=== PATIENT | male | born 1955 | race Caucasian/White ===

== ENCOUNTER 2016-10-15 13:10 | Inpatient (IN) | payer BC, OTHER ==
[2016-10-15] MEDS ORDERED: Furosemide IV* 10 MG/ML VIAL (40 MG) IV SLOW PU ONE (13:42)
[2016-10-15] MEDS ORDERED: Albuterol/Ipratropium NEB.SOL* Albuterol 2.5 MG/Ipratropium 0.5 MG 3 ML INH ONE (13:42)
[2016-10-15 13:45] LABS: Hematocrit 29 % (42-52); Hemoglobin 9.5 g/dl (14.0-18.0); Mean Corpuscular HGB Conc 33 g/dl (31-36); Mean Corpuscular Hemoglobin 34 pg (27-31); Mean Corpuscular Volume 103 fL (80-94); Mean Platelet Volume 8 um3 (7.4-10.4); Red Blood Count 2.85 10^6/ul (4.0-5.4); Red Cell Distribution Width 19 % (10.5-15); White Blood Count 10.9 10^3/ul (3.5-10.8)
[2016-10-15 13:51] LABS: Add Diff/Slide Review? Slide Review Added; Comments Flag Yes
[2016-10-15 13:59] LABS: Albumin 2.9 g/dL (3.2-5.2); Ammonia 134 mol/L (16-53); BUN/Creatinine Ratio 14.4 (8-20); Calcium 8.7 mg/dL (8.6-10.3); EGFR African American 81.3 (>60); EGFR Non-African American 63.2 (>60); Globulin 4.2 g/dL (2-4); Total Bilirubin 2.2 mg/dL (0.2-1.0); Total Protein 7.1 g/dL (6.4-8.9)
[2016-10-15 13:59] LABS: Urine Bilirubin Negative (Negative); Urine Glucose Negative (Negative); Urine Nitrite Negative (Negative)
[2016-10-15 14:01] LABS: Troponin I 0.01 ng/mL (<0.04)
[2016-10-15 14:12] LABS: B Type Natriuretic Peptide 345 pg/mL
[2016-10-15] MEDS ORDERED: Morphine INJ* 4 MG/ML 1 ML CARPUJECT IV ONE (14:14)
[2016-10-15 14:18] LABS: C Reactive Protein 41.9 mg/L (< 5.00); Potassium 5.6 mmol/L (3.5-5.0)
[2016-10-15 14:19] LABS: Macrocytosis 2+
[2016-10-15 14:20] LABS: Basophilic Stippling 1+
--- NOTE | 2016-10-15 14:40 | RAD ---
HISTORY: Shortness of breath COMPARISONS: April 24, 2016 VIEWS: 2: Frontal and lateral views of the chest. FINDINGS: CARDIOMEDIASTINAL SILHOUETTE: The cardiomediastinal silhouette is normal. EDWARD: The edward are normal. PLEURA: The costophrenic angles are sharp. No pleural abnormalities are noted. LUNG PARENCHYMA: The lungs are clear. ABDOMEN: The upper abdomen is clear. There is no subphrenic gas. BONES AND SOFT TISSUES: No bone or soft tissue abnormalities are noted. OTHER: None. IMPRESSION: NO ACTIVE CARDIOPULMONARY DISEASE.
[2016-10-15] MEDS ORDERED: Sodium Polystyrene ORAL.SOL* 15 GM/60 ML BTL PO ONE (15:15)
--- NOTE | 2016-10-15 15:48 | ED ---
I, Clemnet,Rex, scribed for Carlos Wilson MD on 10/15/16 at 1445 . Shortness of Breath - HPI Summary HPI Summary: This 61 y/o male presents to ED for acute on chronic SOB, increased cough, and wheezing since today AM. Pt denies any PMHx of COPD, but reports liver failure s /p partial liver removal, asthma as a kid, and recent fluid overload s/p 8 L fluid drainage on 10/03/2016. Pt is currently on lasix and spironolactone with recent increase of dose of lasix by his PCP, Dr. Noriega. Pt is noted with significant abd swelling and wheezing at the time of initial evaluation. He is SOB at rest. He is former smoker and nondrinker. - History of Current Complaint Chief Complaint: EDShortnessOfBreath Time Seen by Provider: 10/15/16 13:41 Hx Obtained From: Patient, Medical Records Onset/Duration: Gradual Onset Timing: Constant Current Severity: Moderate Dyspnea At: Rest Aggrevating Factors: Nothing Alleviating Factors: Nothing Associated Signs & Symptoms: Wheezing - Allergy/Home Medications Allergies/Adverse Reactions: Allergies Allergy/AdvReac Type Severity Reaction Status Date / Time Sertraline [From Zoloft] Allergy Intermediate Rash And Verified 10/15/16 13:17 Itching Lorazepam [From Ativan] Allergy Hallucinati Verified 10/15/16 13:17 ons BEES Allergy Unknown Uncoded 10/15/16 13:17 Reaction Details Home Medications: Home Medications Ibuprofen TAB* [Motrin TAB* 800 MG] 1 tab PO Q6HR PRN 10/15/16 [History Confirmed 10/15/16] PMH/Surg Hx/FS Hx/Imm Hx Endocrine/Hematology History: Denies: Hx Diabetes - elevated glucose after acute liver failure - diet controlled, Hx Anemia, Hx Unexplained Bleeding Cardiovascular History: Reports: Hx Hypercholesterolemia, Hx Hypertension Denies: Hx Aneurysm, Hx Angina, Hx Angioplasty, Hx Auto Implanted Cardiovert Defib, Hx Cardiac Arrest, Hx Cardiomegaly, Hx Congenital Heart Disease, Hx Congestive Heart Failure, Hx Coronary Artery Disease, Hx Deep Vein Thrombosis, Hx Embolism, Hx Hypotension, Hx Pacemaker/ICD, Hx Peripheral Vascular Disease, Hx Rheumatic Fever, Hx Syncope, Hx Valvular Heart Disease, Other Cardiovascular Problems/Disorders Respiratory History: Reports: Hx Asthma, Hx Seasonal Allergies - hay fever Denies: Hx Chronic Bronchitis, Hx Chronic Obstructive Pulmonary Disease (COPD ), Hx Cystic Fibrosis, Hx Lung Cancer, Hx Pleural Effusion, Hx Pneumonia, Hx Pulmonary Edema, Hx Pulmonary Embolism, Hx Sleep Apnea, Other Respiratory Problems/Disorders GI History: Reports: Hx Cirrhosis, Hx Gall Bladder Disease, Hx Ulcer Denies: Hx Crohn's Disease, Hx Diverticulosis, Hx Gastroesophageal Reflux Disease, Hx Gastrointestinal Bleed, Hx Hiatal Hernia, Hx Irritable Bowel, Hx Jaundice, Hx Obstructive Bowel, Hx Ileostomy, Hx Pyloric Stenosis, Other GI Disorders History: Denies: Hx Renal Disease Musculoskeletal History: Reports: Hx Arthritis - both knees, Hx Orthopedic Injury Denies: Hx Back Problems, Hx Bursitis, Hx Congenital Bone Abnormalities, Hx Fibromyalgia, Hx Gout, Hx Osteoporosis, Hx Scoliosis, Hx Tendonitis, Other Musculoskeletal History Sensory History: Reports: Hx Contacts or Glasses Denies: Hx Cataracts, Hx Eye Injury, Hx Eye Prosthesis, Hx Glaucoma, Hx Legally Blind, Hx Macular Degeneration, Hx Vision Problem, Hx Deafness, Hx Hearing Aid, Hx Hearing Problem, Other Sensory Impairments Opthamlomology History: Reports: Hx Contacts or Glasses Denies: Hx Cataracts, Hx Eye Injury, Hx Eye Prosthesis, Hx Glaucoma, Hx Legally Blind, Hx Macular Degeneration, Hx Vision Problem, Other Sensory Impairments Neurological History: Reports: Hx Seizures Psychiatric History: Reports: Hx Depression, Hx Substance Abuse Denies: Hx Anxiety, Hx Attention Deficit Hyperactivity Disorder, Hx Eating Disorder, Hx Panic Disorder, Hx Post Traumatic Stress Disorder, Hx Inpatient Treatment, Hx Community Mental Health Tx, Hx Schizophrenia, Hx Bipolar Disorder , Hx Suicide Attempt, Hx of Violent Episodes Against Others, Other Psychiatric Issues/Disorders - Surgical History Surgery Procedure, Year, and Place: RIGHT ANKLE ORIF. LEFT KNEE TENDON REPAIR. CHOLECYSECTOMY. APPENDECTOMY. TONSILECTOMY Hx Anesthesia Reactions: No Infectious Disease History: No Infectious Disease History: Denies: Hx Clostridium Difficile, Hx Hepatitis, Hx Human Immunodeficiency Virus (HIV), Hx of Known/Suspected MRSA, Hx Shingles, Hx Tuberculosis, History Other Infectious Disease, Traveled Outside the [place] in Last 30 Days - Family History Known Family History: Negative: Cardiac Disease, Diabetes - Social History Alcohol Use: Rare Alcohol Amount: "next to nothing" Hx Substance Use: No Substance Use Type: Reports: None Hx Tobacco Use: Yes Smoking Status (MU): Former Smoker Type: Cigarettes Have You Smoked in the Last Year: No Review of Systems Positive: Other - "tightness all over". Negative: Fever Positive: Shortness Of Breath, Cough, Other - positive wheezing Positive: Other - abd swelling Positive: other - decreased urinary output Negative: Anxious, Depressed All Other Systems Reviewed And Are Negative: Yes Physical Exam - Summary Physical Exam Summary: VITAL SIGNS: Reviewed. GENERAL: Patient is a obese male with some distress secondary to the shortness of breath. However, he is able to speak in full sentences. HEAD AND FACE: Normocephalic and atraumatic. EYES: PERRLA, EOMI x 2, No injected conjunctiva. EARS: Hearing grossly intact. Ear canals and tympanic membranes WNL MOUTH: Dry oral mucosa. NECK: Supple, trachea is midline, no adenopathy, no JVD, no carotid bruit. CHEST: Symmetric, No intercostal or abdominal retraction, LUNGS: Diffuse bilateral wheezing and decreased breath sounds.No crackles. CVS: RRR,, S1 and S2 present, no murmurs or gallops appreciated. ABDOMEN: Soft, Positive distension secondary to severe ascitis. Positive BS. EXTREMITIES: FROM in all major joints, positive b/l LE edema. NEURO: Alert and oriented x 3. No acute neurological deficits. Speech is normal and follows commands. SKIN: Dry and warm Vital Signs On Initial Exam: Initial Vitals Temp Pulse Resp BP Pulse Ox 99.1 F 82 20 149/93 100 10/15/16 13:10 10/15/16 13:10 10/15/16 13:10 10/15/16 13:10 10/15/16 13:10 Vital Signs Reviewed: Yes Diagnostics - Vital Signs Vital Signs Temp Pulse Resp BP Pulse Ox 10/15/16 13:10 99.1 F 82 20 149/93 100 - Laboratory Lab Results: Lab Results 10/15/16 10/15/16 10/15/16 Range/Units 13:30 13:30 13:30 WBC 10.9 H (3.5-10.8) 10^3/ul RBC 2.85 L (4.0-5.4) 10^6/ul Hgb 9.5 L (14.0-18.0) g/dl Hct 29 L (42-52) % MCV 103 H (80-94) fL MCH 34 H (27-31) pg MCHC 33 (31-36) g/dl RDW 19 H (10.5-15) % Plt Count 176 (150-450) 10^3/ul MPV 8 (7.4-10.4) um3 Neut % (Auto) 55.0 (38-83) % Lymph % (Auto) 14.9 L (25-47) % Crisp % (Auto) 16.1 H (1-9) % Eos % (Auto) 12.8 H (0-6) % Baso % (Auto) 1.2 (0-2) % Absolute Neuts (auto) 6.0 (1.5-7.7) 10^3/ul Absolute Lymphs (auto) 1.6 (1.0-4.8) 10^3/ul Absolute Monos (auto) 1.8 H (0-0.8) 10^3/ul Absolute Eos (auto) 1.4 H (0-0.6) 10^3/ul Absolute Basos (auto) 0.1 (0-0.2) 10^3/ul Absolute Nucleated RBC 0.01 10^3/ul Nucleated RBC % 0.1 Normal RBC Morphology Not Reportable Basophilic Stippling 1+ Macrocytosis 2+ INR (Anticoag Therapy) 1.13 H (0.89-1.11) APTT 28.9 (26.0-36.3) seconds Sodium (133-145) mmol/L Potassium (3.5-5.0) mmol/L Chloride (101-111) mmol/L Carbon Dioxide (22-32) mmol/L Anion Gap (2-11) mmol/L BUN (6-24) mg/dL Creatinine (0.67-1.17) mg/dL Est GFR ( Amer) (>60) Est GFR (Non-Af Amer) (>60) BUN/Creatinine Ratio (8-20) Glucose (70-100) mg/dL Lactic Acid (0.5-2.0) mmol/L Calcium (8.6-10.3) mg/dL Total Bilirubin (0.2-1.0) mg/dL AST (13-39) U/L ALT (7-52) U/L Alkaline Phosphatase (34-104) U/L Ammonia 134 H (16-53) mol/L Total Creatine Kinase (10-223) U/L CK-MB (CK-2) (0.6-6.3) ng/mL Troponin I (<0.04) ng/mL C-Reactive Protein (< 5.00) mg/L B-Natriuretic Peptide 345 H ( - 100) pg/mL Total Protein (6.4-8.9) g/dL Albumin (3.2-5.2) g/dL Globulin (2-4) g/dL Albumin/Globulin Ratio (1-3) Urine Color Urine Appearance Urine pH (5-9) Ur Specific [place] (1.010-1.030) Urine Protein (Negative) Urine Ketones (Negative) Urine Blood (Negative) Urine Nitrate (Negative) Urine Bilirubin (Negative) Urine Urobilinogen (Negative) Ur Leukocyte Esterase (Negative) Urine Glucose (Negative) 10/15/16 10/15/16 10/15/16 Range/Units 13:30 13:30 13:50 WBC (3.5-10.8) 10^3/ul RBC (4.0-5.4) 10^6/ul Hgb (14.0-18.0) g/dl Hct (42-52) % MCV (80-94) fL MCH (27-31) pg MCHC (31-36) g/dl RDW (10.5-15) % Plt Count (150-450) 10^3/ul MPV (7.4-10.4) um3 Neut % (Auto) (38-83) % Lymph % (Auto) (25-47) % Crisp % (Auto) (1-9) % Eos % (Auto) (0-6) % Baso % (Auto) (0-2) % Absolute Neuts (auto) (1.5-7.7) 10^3/ul Absolute Lymphs (auto) (1.0-4.8) 10^3/ul Absolute Monos (auto) (0-0.8) 10^3/ul Absolute Eos (auto) (0-0.6) 10^3/ul Absolute Basos (auto) (0-0.2) 10^3/ul Absolute Nucleated RBC 10^3/ul Nucleated RBC % Normal RBC Morphology Basophilic Stippling Macrocytosis INR (Anticoag Therapy) (0.89-1.11) APTT (26.0-36.3) seconds Sodium 132 L (133-145) mmol/L Potassium 5.6 H (3.5-5.0) mmol/L Chloride 100 L (101-111) mmol/L Carbon Dioxide 25 (22-32) mmol/L Anion Gap 7 (2-11) mmol/L BUN 17 (6-24) mg/dL Creatinine 1.18 H (0.67-1.17) mg/dL Est GFR ( Amer) 81.3 (>60) Est GFR (Non-Af Amer) 63.2 (>60) BUN/Creatinine Ratio 14.4 (8-20) Glucose 169 H (70-100) mg/dL Lactic Acid 3.1 H* (0.5-2.0) mmol/L Calcium 8.7 (8.6-10.3) mg/dL Total Bilirubin 2.20 H (0.2-1.0) mg/dL AST 60 H (13-39) U/L ALT 28 (7-52) U/L Alkaline Phosphatase 222 H (34-104) U/L Ammonia (16-53) mol/L Total Creatine Kinase 256 H (10-223) U/L CK-MB (CK-2) 11.1 H (0.6-6.3) ng/mL Troponin I 0.01 (<0.04) ng/mL C-Reactive Protein 41.90 H (< 5.00) mg/L B-Natriuretic Peptide ( - 100) pg/mL Total Protein 7.1 (6.4-8.9) g/dL Albumin 2.9 L (3.2-5.2) g/dL Globulin 4.2 H (2-4) g/dL Albumin/Globulin Ratio 0.7 L (1-3) Urine Color Yellow Urine Appearance Clear Urine pH 5.0 (5-9) Ur Specific [place] 1.016 (1.010-1.030) Urine Protein Negative (Negative) Urine Ketones Negative (Negative) Urine Blood Negative (Negative) Urine Nitrate Negative (Negative) Urine Bilirubin Negative (Negative) Urine Urobilinogen Negative (Negative) Ur Leukocyte Esterase Negative (Negative) Urine Glucose Negative (Negative) Result Diagrams: 10/15/16 13:30 10/15/16 13:30 Lab Statement: Any lab studies that have been ordered have been reviewed, and results considered in the medical decision making process. - Radiology CXR Radiology Interpretation Completed By: Radiologist Course/Dx - Course Assessment/Plan: This 61 y/o male presents to ED with CC of SOB, increaesdd abd pain, and BLE edema. Bloodwork indicates WBC of 10.9, Hgb of 9.5, hct of 29, ( anemia of chroninc disease), sodium of 132, potassium of 5.6, for which he was given Kayexalate. No EKG changes. Creatinine of 1.18, and ammoium 1.34. CRP of 41.9. BNP 345, and lactic acid of 3.1. UA is negative. CXR shows no active cardiopulmonary dz. ED course pt was given duoneb for wheezing. Lasix for anasarca. Morphine for back pain. Kayaxolate for hypokalemia. Patient had urinary retention and we placed a galeana catether. At this point physical examination findings are shared with Dr. Liu, who will accept the admission of the pt for further workup and management. - Diagnoses Provider Diagnoses: Anasarca, Ascites, Hyperkalemia, Urinary retention - Physician Notifications Discussed Care of Patient With: Dr. Liu (Hospitalist) at 1506 PM Time Discussed With Above Provider: 15:06 Instructed by Provider To: Admit As Inpatient Discharge - Discharge Plan Condition: Stable Disposition: ADMITTED TO [facility] Referrals: Rosie Noriega MD [Primary Care Provider] - The documentation as recorded by the Clement segundo Soohyun accurately reflects the service I personally performed and the decisions made by , Carlos Wilson MD.
[2016-10-15] MEDS ORDERED: Artificial Tears* 15 ML BTL BOTH EYES PRN (15:58)
[2016-10-15] MEDS ORDERED: Albuterol HFA INHALER* 8 gm MDI INH PRN (15:58)
[2016-10-15 16:22] LABS: Phenytoin 13.7 mcg/mL (10-20)
[2016-10-15] MEDS: oxyCODONE/Acetamin 5/325 MG* TAB PO PRN (19:00)
[2016-10-15] MEDS: Furosemide IV* 10 MG/ML VIAL (40 MG) IV SCH (19:00)
[2016-10-15] MEDS: Gabapentin CAP(*) 300 MG PO SCH (21:34)
[2016-10-15] MEDS: Phenytoin CHEW TAB(*) 50 MG PO SCH (21:36)
[2016-10-15] MEDS: RiFAXimin* 550 MG TAB PO SCH (21:38)
[2016-10-15] MEDS: Ibuprofen TAB* 800 MG PO PRN (21:39)
[2016-10-15] MEDS: Heparin VIAL(*) 5000 UNITS/ML VIAL (FIVE THOUSAND) SUBCUT SCH (21:40)
[2016-10-15] MEDS ORDERED: Albuterol 2.5 MG/3 ML NEB.SOL* (0.083%) INH PRN (22:38)
[2016-10-15] MEDS ORDERED: hydrOXYzine HCL TAB* 25 MG PO PRN (22:38)
--- NOTE | 2016-10-16 03:47 | HP ---
HISTORY AND PHYSICAL: DATE OF ADMISSION: 10/25/16 PRIMARY CARE PHYSICIAN: Dr. Rosie Noriega. CHIEF COMPLAINT: Shortness of breath and leg edema. HISTORY OF PRESENT ILLNESS: Jarad Mata is known to us from prior multiple hospitalizations, male with history of alcoholism, who stated that he stopped drinking in July of 2016. The patient had been battling with consequences of chronic liver failure since then. He had a paracentesis that yielded 8 L of fluid on 09/29/16 as outpatient. The patient stated that his baseline weight used to be 200 pounds, but he is up to [address] Noriega increasing his Lasix dose from 40 mg b.i.d. to 80 mg b.i.d. just 4 days ago, he still continues to gain weight. He became more immobile and for the past couple of days, he has been "stumbling around" and fell in the shower yesterday. He did not lose consciousness or hit his head, though. He presents to the hospital with marked ascites and bilateral lower extremity edema. He is going to be admitted with diagnosis of fluid overload and chronic liver failure. PAST MEDICAL HISTORY: 1. Hypertension. 2. History of hemochromatosis. 3. Dyslipidemia. 4. History of thrombocytopenia in the past due to liver disease. 5. History of seizure disorder. 6. History of chronic liver failure. 7. History of alcoholic hepatitis. 8. Diabetes type 2, currently diet controlled. 9. History of right ankle ORIF. 10. Status post cholecystectomy. 11. Status post appendectomy. 12. History of tonsillectomy remotely. 13. History of prolonged hospital stay in April of 2016, and at that point, he had head trauma with cerebral contusion and small intracranial hemorrhage, subsequent development of status epilepticus and prolonged hospital stay with ventilatory support. He also had subsequent hepatic encephalopathy at that point. MEDICATIONS: Include: 1. Ibuprofen 800 mg every 6 hours p.r.n. 2. Aspirin 81 mg daily. 3. Artificial tears one drop to both eyes every 2 hours p.r.n. 4. Albuterol inhaler 1 puff every 4 hours p.r.n. 5. Furosemide 80 mg twice a day. 6. Folic acid 1 mg daily. 7. Lactulose 30 mL 3 times a day. 8. Gabapentin 300 mg at bedtime. 9. Dilantin 200 mg at bedtime and 100 mg daily. 10. Omeprazole 20 mg daily. 11. Multivitamin one tablet daily. 12. Rifaximin 550 mg b.i.d. 13. Propranolol 10 mg daily. 14. Aldactone 25 mg daily. Please note that the patient had not been taking lactulose as prescribed at 3 times a day and he had been skipping doses. ALLERGIES: He was just recently placed on SERTRALINE approximately 2 weeks ago and developed a rash. He also is allergic to LORAZEPAM. FAMILY HISTORY: Positive for mother who secondary to stroke at the age of 52. SOCIAL HISTORY: The patient has a history of 10-pack year smoking, quit over 30 years ago. He had been an alcoholic up to July of 2016. He had negative drug use. He is currently unemployed and lives with his , who is his healthcare proxy. His 's name is Larisa Lorenz and her phone number is . REVIEW OF SYSTEMS: Please note that the patient stated that in the past several days, he gained approximately 20 pounds. There was a question of urinary retention at presentation to the ED. Initially postvoid residual on the ultrasound was noted to be 900 mL, but after Powers was inserted, only 100 mL were obtained. I believe that the postvoid residual arose due to the patient 's ascites. The patient also had been complaining of leg edema and swelling. Subsequently, he had been very immobile and has had lower back pain. His breathing also had been impaired. His last bowel movement was 2 days ago. All the remaining 14 systems were reviewed with the patient and were otherwise negative. Please also note that the patient has periods of forgetfulness, but otherwise he is oriented x3. He also complains of being "more foggy" in the past 2 days. PHYSICAL EXAMINATION GENERAL: This is a very pleasant 61-year-old male who is in no acute distress. The patient is alert, awake, and oriented x3. Occasionally past problems with short-term memory. VITAL SIGNS: Blood pressure of 143/74, heart rate of 83 and regular, respiratory rate 17, oxygen saturation 98% on 2 L of oxygen nasal cannula, temperature of 99.1. HEENT: Head atraumatic, normocephalic. Eyes: Pupils equal, reactive to light and accommodation. Oropharynx clear. Mucosa moist. NECK: Supple. No JVD. No bruits bilaterally. RESPIRATORY: Bibasilar crackles noted and occasional mid lung wheezes bilaterally. CARDIOVASCULAR: Regular rate and rhythm. No murmur. ABDOMEN: Tense ascites noted, nontender. Bowel sounds present in all 4 quadrants. EXTREMITIES: There is 2+ pitting entire bilateral lower extremities edema all the way to the levels of bilateral groins. There is no clubbing, no cyanosis. Pulses are +2 bilaterally. NEUROLOGIC: On neuro evaluation, speech clear. Cranial nerves II through XII grossly intact. Motor strength is 5/5 bilaterally. SKIN: On evaluation of the skin, the patient's skin is dry. There appears to be resolving, flat erythema noted on bilateral thighs and upper chest, which is after the allergic reaction from SERTRALINE. DIAGNOSTIC STUDIES/LAB DATA: Laboratory data and studies performed during the hospital stay included white blood cell count of 10.9, hemoglobin of 9.5, hematocrit of 29, and platelets of 176. Sodium was 132, potassium 3.6, chloride 100, carbon dioxide 25, BUN 17, creatinine 1.18. Liver function tests showed bilirubin of 2.2, AST of 60, ALT of 28, alkaline phosphatase of 222. The patient's total CPK was 256. Albumin 2.9, globulin 4.2. Brain natriuretic peptide was 335, lactic acid was 3.1. Coagulation studies showed INR of 1.13 and PTT of 28.9. Portable chest x-ray read by the radiologist, impression: "No active cardiopulmonary disease." The patient's EKG showed normal sinus rhythm with heart rate of 86 beats per minute with normal axis and no ST changes. ASSESSMENT AND PLAN: A 61-year-old male with history of chronic liver failure who had paracentesis on 09/29/16 of 8 L. Now presents with worsening dyspnea due to fluid overload and anasarca. He has rather dense ascites and will require paracentesis in the near future. 1. In regards to patient's ascites and fluid overload due to chronic liver failure, the patient is going to be placed on Lasix intravenously twice a day. We will place him on daily weight measurements. Paracentesis is going to be obtained and ordered from Radiology in the morning. 2. The patient has mild hyperkalemia with no EKG changes. Kayexalate is going to be administered and Aldactone is going to be held. 3. The patient's elevation of liver function is chronic transaminitis due to chronic liver disease. 4. History of seizure disorder. Dilantin level is going to be checked and Dilantin will be continued. 5. In regards to mild hepatic encephalopathy, rifaximin is going to be continued and lactulose restarted at prescribed dose. The patient was educated about starting lactulose only if he develops more than 5 bowel movements a day. 6. The patient's increased creatinine is most likely prerenal. We will start Lasix as mentioned and monitor creatinine in the morning. 7. For DVT prophylaxis, the patient is at high risk and heparin subcutaneously is going to be ordered. 8. Patient's code status is full. His surrogate is his , Mrs. Lorenz. TIME SPENT: Approximately 65 minutes was spent on admission of this patient, more than half that time was spent [id number] with the patient during the interview and physical exam. CC: Dr. Kemp; Dr. Xiong; Dr. Rosie Noriega* [id number]/[facility] #: [id number]
[2016-10-16] MEDS: oxyCODONE/Acetamin 5/325 MG* TAB PO PRN (05:18)
[2016-10-16] MEDS: Heparin VIAL(*) 5000 UNITS/ML VIAL (FIVE THOUSAND) SUBCUT SCH ×3 (05:22→21:05)
[2016-10-16 06:41] LABS: Hematocrit 24 % (42-52); Hemoglobin 7.9 g/dl (14.0-18.0); Mean Corpuscular HGB Conc 33 g/dl (31-36); Mean Corpuscular Hemoglobin 34 pg (27-31); Mean Corpuscular Volume 102 fL (80-94); Mean Platelet Volume 8 um3 (7.4-10.4); Red Blood Count 2.34 10^6/ul (4.0-5.4); Red Cell Distribution Width 18 % (10.5-15); White Blood Count 7.9 10^3/ul (3.5-10.8)
[2016-10-16 06:56] LABS: BUN/Creatinine Ratio 13.3 (8-20); Calcium 8.1 mg/dL (8.6-10.3); EGFR African American 61.6 (>60); EGFR Non-African American 47.9 (>60); Potassium 4.7 mmol/L (3.5-5.0)
[2016-10-16] MEDS: Phenytoin CAP(*) 100 MG CAP.ER PO SCH (08:14)
[2016-10-16] MEDS: Furosemide IV* 10 MG/ML VIAL (40 MG) IV SCH (08:14)
[2016-10-16] MEDS: Propranolol TAB* 10 MG PO SCH (08:14)
[2016-10-16] MEDS: Omeprazole CAP* 20 MG PO SCH (08:15)
[2016-10-16] MEDS: Folic Acid TAB* 1 MG PO SCH (08:15)
[2016-10-16] MEDS: Aspirin EC Low Dose* 81 MG TAB.EC PO SCH (08:15)
[2016-10-16] MEDS: RiFAXimin* 550 MG TAB PO SCH ×2 (08:15→21:05)
--- NOTE | 2016-10-16 11:30 | RAD ---
CPT II Codes: 6100F ULTRASOUND-GUIDED PARACENTESIS. INDICATION: Dyspnea secondary to ascites. COMPARISON: Similar image guided procedure dated September 28, 2016 IMAGING FINDINGS AND PROCEDURE NOTE: The benefits of the and risks of procedure explained to the patient. The patient consented of the exam. The patient was brought to the ultrasound suite and multiple images of the peritoneal fluid were obtained. There was a large amount of ascites present throughout the abdomen. The largest pocket of fluid was chosen for the paracentesis which was in the right lower quadrant. A time out was performed before beginning the procedure. The patient was prepped and draped in the usual sterile fashion. The patient?s abdominal wall at the site was anesthetized with 1% lidocaine. A small skin tank was made to admit the paracentesis needle and catheter. Under sonographic control the drainage catheter was advanced into the ascites pocket. An image was saved. Approximately 8.5 Liters of a yellow tinged fluid was removed. The patient tolerated procedure well without incident. IMPRESSION: UNCOMPLICATED ULTRASOUND-GUIDED PARACENTESIS DESCRIBED ABOVE.
--- NOTE | 2016-10-16 15:22 | PN ---
Subjective Date of Service: 10/16/16 Interval History: patient reports he feels "much, much better today" after paracentesis and diuresing. Reports his SOB has resolved and his LE swelling is better. Denies fever or chills. Feels "pretty good". Sister and family at bedside and report pt appears to be at his baseline. Pt admits to not being non-compliant with lactulose at home as well as he continues to drink "intermittently". He frequently attends AA. He is open to talking to social work to discuss other options for ETOH abuse. Objective Active Medications: Albuterol (Ventolin Hfa Inhaler*) 1 puff INH Q4H PRN PRN Reason: SOB/WHEEZING Albuterol (Ventolin 2.5 Mg/3 Ml Neb.Debbie*) 2.5 mg INH Q4H PRN PRN Reason: WHEEZING Aspirin (Aspirin Ec Low Dose*) 81 mg PO DAILY [facility] Last Admin: 10/16/16 08:15 Dose: 81 mg Folic Acid (Folvite Tab*) 1 mg PO DAILY [facility] Last Admin: 10/16/16 08:15 Dose: 1 mg Furosemide (Lasix Iv*) 40 mg IV 0800,1700 [facility] Last Admin: 10/16/16 08:14 Dose: 40 mg Gabapentin (Neurontin Cap(*)) 300 mg PO BEDTIME [facility] Last Admin: 10/15/16 21:34 Dose: 300 mg Heparin Sodium (Porcine) (Heparin Vial(*)) 5,000 units SUBCUT Q8HR [facility] Last Admin: 10/16/16 14:20 Dose: 5,000 units Hydroxyzine HCl (Atarax Tab*) 25 mg PO Q8H PRN PRN Reason: ITCHING Last Admin: 10/15/16 23:07 Dose: 25 mg Ibuprofen (Motrin Tab*) 800 mg PO Q6HR PRN PRN Reason: PAIN Last Admin: 10/15/16 21:39 Dose: 800 mg Lactulose (Lactulose*) 30 ml PO TID [facility] Last Admin: 10/16/16 14:20 Dose: 30 ml Omeprazole (Prilosec Cap*) 20 mg PO 0730 [facility] Last Admin: 10/16/16 08:15 Dose: 20 mg Oxycodone/Acetaminophen (Percocet 5/325 Tab*) 1 tab PO Q6H PRN PRN Reason: Pain Last Admin: 10/16/16 05:18 Dose: 1 tab Phenytoin Sodium (Dilantin Cap(*)) 100 mg PO DAILY [facility] Last Admin: 10/16/16 08:14 Dose: 100 mg Phenytoin Sodium (Dilantin Infatabs Chew Tab(*)) 200 mg PO BEDTIME [facility] Last Admin: 10/15/16 21:36 Dose: 200 mg Polyvinyl Alcohol (Polyvinyl Alcohol 1.4% Opth*) 1 drop BOTH EYES Q2H PRN PRN Reason: DRY EYE Propranolol HCl (Inderal Tab*) 10 mg PO DAILY [facility] Last Admin: 10/16/16 08:14 Dose: 10 mg Rifaximin (Xifaxan*) 550 mg PO BID [facility] Last Admin: 10/16/16 08:15 Dose: 550 mg Vital Signs 10/15/16 10/15/16 10/15/16 16:00 16:30 17:00 Temperature Pulse Rate 81 77 101 Respiratory 16 14 17 Rate Blood Pressure 131/61 121/74 154/69 (mmHg) O2 Sat by Pulse 98 98 99 Oximetry 10/15/16 10/15/16 10/15/16 17:15 19:00 19:59 Temperature 98.5 F Pulse Rate 83 Respiratory 18 20 18 Rate Blood Pressure 136/73 (mmHg) O2 Sat by Pulse 100 Oximetry 10/15/16 10/15/16 10/15/16 20:00 21:00 21:34 Temperature Pulse Rate Respiratory 16 18 16 Rate Blood Pressure (mmHg) O2 Sat by Pulse Oximetry 10/15/16 10/15/16 10/16/16 23:34 23:38 04:42 Temperature 98.1 F Pulse Rate 85 Respiratory 18 16 Rate Blood Pressure 116/48 110/60 (mmHg) O2 Sat by Pulse 99 Oximetry 10/16/16 10/16/16 10/16/16 05:10 05:18 07:18 Temperature Pulse Rate 97 Respiratory 16 16 18 Rate Blood Pressure (mmHg) O2 Sat by Pulse 100 Oximetry 10/16/16 10/16/16 10/16/16 07:22 09:43 10:20 Temperature 97.8 F 98.9 F 98.8 F Pulse Rate 71 66 65 Respiratory 16 18 16 Rate Blood Pressure 122/54 120/71 120/52 (mmHg) O2 Sat by Pulse 100 96 99 Oximetry 10/16/16 10/16/16 10:41 14:25 Temperature 98.1 F 98.0 F Pulse Rate 72 78 Respiratory Rate Blood Pressure 108/53 123/61 (mmHg) O2 Sat by Pulse 97 100 Oximetry Oxygen Devices in Use Now: None Appearance: 61 yo chronically ill appearing male laying in bed in NAD. A+O x3 Eyes: PERRLA, - - mild bilateral scleral icterus Ears/Nose/Mouth/Throat: NL Teeth, Lips, Gums, Mucous Membranes Moist Neck: NL Appearance and Movements; NL JVP Respiratory: Symmetrical Chest Expansion and Respiratory Effort, Clear to Auscultation Cardiovascular: NL Sounds; No Murmurs; No JVD, RRR Abdominal: - - distended, soft, non tender Extremities: - - 2-3+ b/l LE edema feet up to thighs - noted lower back edema Skin: No Rash or Ulcers, No Nodules or Sclerosis Lines/Tubes/Other Access: Clean, Dry and Intact Peripheral IV Nutrition: Taking PO's Result Diagrams: 10/16/16 16:13 10/16/16 06:15 Additional Lab and Data: Lab Results 10/15/16 10/15/16 10/15/16 Range/Units 13:30 13:30 13:30 WBC 10.9 H (3.5-10.8) 10^3/ul RBC 2.85 L (4.0-5.4) 10^6/ul Hgb 9.5 L (14.0-18.0) g/dl Hct 29 L (42-52) % MCV 103 H (80-94) fL MCH 34 H (27-31) pg MCHC 33 (31-36) g/dl RDW 19 H (10.5-15) % Plt Count 176 (150-450) 10^3/ul MPV 8 (7.4-10.4) um3 Neut % (Auto) 55.0 (38-83) % Lymph % (Auto) 14.9 L (25-47) % [place] % (Auto) 16.1 H (1-9) % Eos % (Auto) 12.8 H (0-6) % Baso % (Auto) 1.2 (0-2) % Absolute Neuts (auto) 6.0 (1.5-7.7) 10^3/ul Absolute Lymphs (auto) 1.6 (1.0-4.8) 10^3/ul Absolute Monos (auto) 1.8 H (0-0.8) 10^3/ul Absolute Eos (auto) 1.4 H (0-0.6) 10^3/ul Absolute Basos (auto) 0.1 (0-0.2) 10^3/ul Absolute Nucleated RBC 0.01 10^3/ul Nucleated RBC % 0.1 Normal RBC Morphology Not Reportable Basophilic Stippling 1+ Macrocytosis 2+ INR (Anticoag Therapy) 1.13 H (0.89-1.11) APTT 28.9 (26.0-36.3) seconds Sodium (133-145) mmol/L Potassium (3.5-5.0) mmol/L Chloride (101-111) mmol/L Carbon Dioxide (22-32) mmol/L Anion Gap (2-11) mmol/L BUN (6-24) mg/dL Creatinine (0.67-1.17) mg/dL Est GFR ( Amer) (>60) Est GFR (Non-Af Amer) (>60) BUN/Creatinine Ratio (8-20) Glucose (70-100) mg/dL Lactic Acid (0.5-2.0) mmol/L Calcium (8.6-10.3) mg/dL Total Bilirubin (0.2-1.0) mg/dL AST (13-39) U/L ALT (7-52) U/L Alkaline Phosphatase (34-104) U/L Ammonia 134 H (16-53) mol/L Total Creatine Kinase (10-223) U/L CK-MB (CK-2) (0.6-6.3) ng/mL Troponin I (<0.04) ng/mL C-Reactive Protein (< 5.00) mg/L B-Natriuretic Peptide 345 H ( - 100) pg/mL Total Protein (6.4-8.9) g/dL Albumin (3.2-5.2) g/dL Globulin (2-4) g/dL Albumin/Globulin Ratio (1-3) Urine Color Urine Appearance Urine pH (5-9) Ur Specific [place] (1.010-1.030) Urine Protein (Negative) Urine Ketones (Negative) Urine Blood (Negative) Urine Nitrate (Negative) Urine Bilirubin (Negative) Urine Urobilinogen (Negative) Ur Leukocyte Esterase (Negative) Urine Glucose (Negative) 10/15/16 10/15/16 10/15/16 Range/Units 13:30 13:30 13:50 WBC (3.5-10.8) 10^3/ul RBC (4.0-5.4) 10^6/ul Hgb (14.0-18.0) g/dl Hct (42-52) % MCV (80-94) fL MCH (27-31) pg MCHC (31-36) g/dl RDW (10.5-15) % Plt Count (150-450) 10^3/ul MPV (7.4-10.4) um3 Neut % (Auto) (38-83) % Lymph % (Auto) (25-47) % [place] % (Auto) (1-9) % Eos % (Auto) (0-6) % Baso % (Auto) (0-2) % Absolute Neuts (auto) (1.5-7.7) 10^3/ul Absolute Lymphs (auto) (1.0-4.8) 10^3/ul Absolute Monos (auto) (0-0.8) 10^3/ul Absolute Eos (auto) (0-0.6) 10^3/ul Absolute Basos (auto) (0-0.2) 10^3/ul Absolute Nucleated RBC 10^3/ul Nucleated RBC % Normal RBC Morphology Basophilic Stippling Macrocytosis INR (Anticoag Therapy) (0.89-1.11) APTT (26.0-36.3) seconds Sodium 132 L (133-145) mmol/L Potassium 5.6 H (3.5-5.0) mmol/L Chloride 100 L (101-111) mmol/L Carbon Dioxide 25 (22-32) mmol/L Anion Gap 7 (2-11) mmol/L BUN 17 (6-24) mg/dL Creatinine 1.18 H (0.67-1.17) mg/dL Est GFR ( Amer) 81.3 (>60) Est GFR (Non-Af Amer) 63.2 (>60) BUN/Creatinine Ratio 14.4 (8-20) Glucose 169 H (70-100) mg/dL Lactic Acid 3.1 H* (0.5-2.0) mmol/L Calcium 8.7 (8.6-10.3) mg/dL Total Bilirubin 2.20 H (0.2-1.0) mg/dL AST 60 H (13-39) U/L ALT 28 (7-52) U/L Alkaline Phosphatase 222 H (34-104) U/L Ammonia (16-53) mol/L Total Creatine Kinase 256 H (10-223) U/L CK-MB (CK-2) 11.1 H (0.6-6.3) ng/mL Troponin I 0.01 (<0.04) ng/mL C-Reactive Protein 41.90 H (< 5.00) mg/L B-Natriuretic Peptide ( - 100) pg/mL Total Protein 7.1 (6.4-8.9) g/dL Albumin 2.9 L (3.2-5.2) g/dL Globulin 4.2 H (2-4) g/dL Albumin/Globulin Ratio 0.7 L (1-3) Urine Color Yellow Urine Appearance Clear Urine pH 5.0 (5-9) Ur Specific [place] 1.016 (1.010-1.030) Urine Protein Negative (Negative) Urine Ketones Negative (Negative) Urine Blood Negative (Negative) Urine Nitrate Negative (Negative) Urine Bilirubin Negative (Negative) Urine Urobilinogen Negative (Negative) Ur Leukocyte Esterase Negative (Negative) Urine Glucose Negative (Negative) Assess/Plan/Problems-Billing Assessment: Mr. Mata is a 61 yo male with a PMH of multiple hospitalizations, alcoholism, Chronic liver failure, DM2, seizure disorder, HTN and hemochromatosis who presented on 10/15 with report of SOB and LE edema. - Patient Problems (1) Alcoholic hepatitis with ascites Status: Chronic Comment: - paracentesis today 8.5L removed. - Continues to be grossly edematous but reports improvement from admission - Creatinine up from aggressive diuresing that started as an outpt last week - plan to decrease lasix dose, recheck labs in am. - Low suspicion for SBP - Daily weights. Strict I+Os (2) Hepatic encephalopathy Comment: - Pt appears to be at baseline - Continue rifaximin and lactulose (3) Seizures Comment: Seizure precautions. Continue home Dilantin. (4) Thrombocytopenia Comment: chronic, due to ETOH abuse (5) Hemochromatosis (6) Hypertension Comment: controlled. Continue current medication regimen (7) DVT prophylaxis Comment: SQ heparin. (8) Full code status
[2016-10-16 16:26] LABS: Hematocrit 27 % (42-52); Hemoglobin 8.6 g/dl (14.0-18.0)
[2016-10-16] MEDS: Furosemide IV* 10 MG/ML 2 ML VIAL (20 MG) IV SCH (16:32)
[2016-10-16] MEDS: Gabapentin CAP(*) 300 MG PO SCH (21:01)
[2016-10-16] MEDS: Ibuprofen TAB* 800 MG PO PRN (21:03)
[2016-10-16] MEDS: Phenytoin CHEW TAB(*) 50 MG PO SCH (21:04)
[2016-10-17] MEDS: Heparin VIAL(*) 5000 UNITS/ML VIAL (FIVE THOUSAND) SUBCUT SCH (05:34)
[2016-10-17 07:18] LABS: Hematocrit 24 % (42-52); Hemoglobin 7.8 g/dl (14.0-18.0); Mean Corpuscular HGB Conc 33 g/dl (31-36); Mean Corpuscular Hemoglobin 34 pg (27-31); Mean Corpuscular Volume 103 fL (80-94); Mean Platelet Volume 8 um3 (7.4-10.4); Red Blood Count 2.33 10^6/ul (4.0-5.4); Red Cell Distribution Width 19 % (10.5-15); White Blood Count 6.7 10^3/ul (3.5-10.8)
[2016-10-17 07:32] LABS: Albumin 2.1 g/dL (3.2-5.2); EGFR African American 79.7 (>60); Globulin 3.1 g/dL (2-4); Potassium 4.3 mmol/L (3.5-5.0); Total Bilirubin 3.1 mg/dL (0.2-1.0); Total Protein 5.2 g/dL (6.4-8.9)
[2016-10-17] MEDS: Phenytoin CAP(*) 100 MG CAP.ER PO SCH (08:11)
[2016-10-17] MEDS: Omeprazole CAP* 20 MG PO SCH (08:11)
[2016-10-17] MEDS: Aspirin EC Low Dose* 81 MG TAB.EC PO SCH (08:11)
[2016-10-17] MEDS: Folic Acid TAB* 1 MG PO SCH (08:11)
[2016-10-17] MEDS: Propranolol TAB* 10 MG PO SCH (08:11)
[2016-10-17] MEDS: Furosemide IV* 10 MG/ML 2 ML VIAL (20 MG) IV SCH (08:11)
[2016-10-17] MEDS: RiFAXimin* 550 MG TAB PO SCH (08:11)
[2016-10-17] MEDS ORDERED: Spironolactone TAB* 25 MG PO SCH (09:00)
--- NOTE | 2016-10-17 12:00 | DCNOTE ---
Subjective Date of Service: 10/17/16 Interval History: Patient reports he feels much much better today. He has continued to feel that he has lost "fluid weight" feeling much less swollen in lower extremities, thighs, abdomen. No further SOB. Denies confusion. No abdominal pain. No fevers or chills. no seizure activity. Objective Active Medications: Albuterol (Ventolin Hfa Inhaler*) 1 puff INH Q4H PRN PRN Reason: SOB/WHEEZING Albuterol (Ventolin 2.5 Mg/3 Ml Neb.Debbie*) 2.5 mg INH Q4H PRN PRN Reason: WHEEZING Aspirin (Aspirin Ec Low Dose*) 81 mg PO DAILY [facility] Last Admin: 10/17/16 08:11 Dose: 81 mg Folic Acid (Folvite Tab*) 1 mg PO DAILY [facility] Last Admin: 10/17/16 08:11 Dose: 1 mg Furosemide (Lasix Iv*) 20 mg IV 0800,1700 [facility] Last Admin: 10/17/16 08:11 Dose: 20 mg Gabapentin (Neurontin Cap(*)) 300 mg PO BEDTIME [facility] Last Admin: 10/16/16 21:01 Dose: 300 mg Heparin Sodium (Porcine) (Heparin Vial(*)) 5,000 units SUBCUT Q8HR [facility] Last Admin: 10/17/16 05:34 Dose: 5,000 units Hydroxyzine HCl (Atarax Tab*) 25 mg PO Q8H PRN PRN Reason: ITCHING Last Admin: 10/15/16 23:07 Dose: 25 mg Ibuprofen (Motrin Tab*) 800 mg PO Q6HR PRN PRN Reason: PAIN Last Admin: 10/16/16 21:03 Dose: 800 mg Lactulose (Lactulose*) 30 ml PO TID [facility] Last Admin: 10/17/16 08:11 Dose: 30 ml Omeprazole (Prilosec Cap*) 20 mg PO 0730 [facility] Last Admin: 10/17/16 08:11 Dose: 20 mg Oxycodone/Acetaminophen (Percocet 5/325 Tab*) 1 tab PO Q6H PRN PRN Reason: Pain Last Admin: 10/16/16 05:18 Dose: 1 tab Phenytoin Sodium (Dilantin Cap(*)) 100 mg PO DAILY [facility] Last Admin: 10/17/16 08:11 Dose: 100 mg Phenytoin Sodium (Dilantin Infatabs Chew Tab(*)) 200 mg PO BEDTIME [facility] Last Admin: 10/16/16 21:04 Dose: 200 mg Polyvinyl Alcohol (Polyvinyl Alcohol 1.4% Opth*) 1 drop BOTH EYES Q2H PRN PRN Reason: DRY EYE Propranolol HCl (Inderal Tab*) 10 mg PO DAILY [facility] Last Admin: 10/17/16 08:11 Dose: 10 mg Rifaximin (Xifaxan*) 550 mg PO BID [facility] Last Admin: 10/17/16 08:11 Dose: 550 mg Spironolactone (Aldactone Tab*) 25 mg PO DAILY [facility] Last Admin: 10/17/16 08:11 Dose: 25 mg Vital Signs 10/16/16 10/16/16 10/16/16 20:00 20:35 21:01 Temperature 98.9 F Pulse Rate 89 Respiratory 20 16 20 Rate Blood Pressure 97/45 (mmHg) O2 Sat by Pulse 93 Oximetry 10/16/16 10/17/16 10/17/16 22:30 00:29 01:01 Temperature 98.1 F Pulse Rate 85 Respiratory 16 16 Rate Blood Pressure 105/60 101/43 (mmHg) O2 Sat by Pulse 97 Oximetry 10/17/16 04:13 Temperature 98.3 F Pulse Rate 87 Respiratory 16 Rate Blood Pressure 111/53 (mmHg) O2 Sat by Pulse 96 Oximetry Oxygen Devices in Use Now: None Appearance: 61 yo chronically ill appearing male laying in bed in [employer]. A+O x3 Eyes: PERRLA, - - mild scleral icterus Ears/Nose/Mouth/Throat: NL Teeth, Lips, Gums, Clear Oropharnyx Neck: NL Appearance and Movements; NL JVP Respiratory: Symmetrical Chest Expansion and Respiratory Effort, Clear to Auscultation Cardiovascular: NL Sounds; No Murmurs; No JVD, RRR, - - 2+ edema LE generalized - much improvement in thigh bilaterally. Skin: No Rash or Ulcers, No Nodules or Sclerosis Neurological: Alert and Oriented x 3, NL Sensation, NL Gait, NL Muscle Strength and Tone Lines/Tubes/Other Access: Clean, Dry and Intact Peripheral IV Nutrition: Taking PO's Result Diagrams: 10/17/16 07:10 10/17/16 07:10 Additional Lab and Data: Lab Results 10/15/16 10/15/16 10/15/16 Range/Units 13:30 13:30 13:30 WBC 10.9 H (3.5-10.8) 10^3/ul RBC 2.85 L (4.0-5.4) 10^6/ul Hgb 9.5 L (14.0-18.0) g/dl Hct 29 L (42-52) % MCV 103 H (80-94) fL MCH 34 H (27-31) pg MCHC 33 (31-36) g/dl RDW 19 H (10.5-15) % Plt Count 176 (150-450) 10^3/ul MPV 8 (7.4-10.4) um3 Neut % (Auto) 55.0 (38-83) % Lymph % (Auto) 14.9 L (25-47) % [place] % (Auto) 16.1 H (1-9) % Eos % (Auto) 12.8 H (0-6) % Baso % (Auto) 1.2 (0-2) % Absolute Neuts (auto) 6.0 (1.5-7.7) 10^3/ul Absolute Lymphs (auto) 1.6 (1.0-4.8) 10^3/ul Absolute Monos (auto) 1.8 H (0-0.8) 10^3/ul Absolute Eos (auto) 1.4 H (0-0.6) 10^3/ul Absolute Basos (auto) 0.1 (0-0.2) 10^3/ul Absolute Nucleated RBC 0.01 10^3/ul Nucleated RBC % 0.1 Normal RBC Morphology Not Reportable Basophilic Stippling 1+ Macrocytosis 2+ INR (Anticoag Therapy) 1.13 H (0.89-1.11) APTT 28.9 (26.0-36.3) seconds Sodium (133-145) mmol/L Potassium (3.5-5.0) mmol/L Chloride (101-111) mmol/L Carbon Dioxide (22-32) mmol/L Anion Gap (2-11) mmol/L BUN (6-24) mg/dL Creatinine (0.67-1.17) mg/dL Est GFR ( Amer) (>60) Est GFR (Non-Af Amer) (>60) BUN/Creatinine Ratio (8-20) Glucose (70-100) mg/dL Lactic Acid (0.5-2.0) mmol/L Calcium (8.6-10.3) mg/dL Total Bilirubin (0.2-1.0) mg/dL AST (13-39) U/L ALT (7-52) U/L Alkaline Phosphatase (34-104) U/L Ammonia 134 H (16-53) mol/L Total Creatine Kinase (10-223) U/L CK-MB (CK-2) (0.6-6.3) ng/mL Troponin I (<0.04) ng/mL C-Reactive Protein (< 5.00) mg/L B-Natriuretic Peptide 345 H ( - 100) pg/mL Total Protein (6.4-8.9) g/dL Albumin (3.2-5.2) g/dL Globulin (2-4) g/dL Albumin/Globulin Ratio (1-3) Urine Color Urine Appearance Urine pH (5-9) Ur Specific [place] (1.010-1.030) Urine Protein (Negative) Urine Ketones (Negative) Urine Blood (Negative) Urine Nitrate (Negative) Urine Bilirubin (Negative) Urine Urobilinogen (Negative) Ur Leukocyte Esterase (Negative) Urine Glucose (Negative) 10/15/16 10/15/16 10/15/16 Range/Units 13:30 13:30 13:50 WBC (3.5-10.8) 10^3/ul RBC (4.0-5.4) 10^6/ul Hgb (14.0-18.0) g/dl Hct (42-52) % MCV (80-94) fL MCH (27-31) pg MCHC (31-36) g/dl RDW (10.5-15) % Plt Count (150-450) 10^3/ul MPV (7.4-10.4) um3 Neut % (Auto) (38-83) % Lymph % (Auto) (25-47) % [place] % (Auto) (1-9) % Eos % (Auto) (0-6) % Baso % (Auto) (0-2) % Absolute Neuts (auto) (1.5-7.7) 10^3/ul Absolute Lymphs (auto) (1.0-4.8) 10^3/ul Absolute Monos (auto) (0-0.8) 10^3/ul Absolute Eos (auto) (0-0.6) 10^3/ul Absolute Basos (auto) (0-0.2) 10^3/ul Absolute Nucleated RBC 10^3/ul Nucleated RBC % Normal RBC Morphology Basophilic Stippling Macrocytosis INR (Anticoag Therapy) (0.89-1.11) APTT (26.0-36.3) seconds Sodium 132 L (133-145) mmol/L Potassium 5.6 H (3.5-5.0) mmol/L Chloride 100 L (101-111) mmol/L Carbon Dioxide 25 (22-32) mmol/L Anion Gap 7 (2-11) mmol/L BUN 17 (6-24) mg/dL Creatinine 1.18 H (0.67-1.17) mg/dL Est GFR ( Amer) 81.3 (>60) Est GFR (Non-Af Amer) 63.2 (>60) BUN/Creatinine Ratio 14.4 (8-20) Glucose 169 H (70-100) mg/dL Lactic Acid 3.1 H* (0.5-2.0) mmol/L Calcium 8.7 (8.6-10.3) mg/dL Total Bilirubin 2.20 H (0.2-1.0) mg/dL AST 60 H (13-39) U/L ALT 28 (7-52) U/L Alkaline Phosphatase 222 H (34-104) U/L Ammonia (16-53) mol/L Total Creatine Kinase 256 H (10-223) U/L CK-MB (CK-2) 11.1 H (0.6-6.3) ng/mL Troponin I 0.01 (<0.04) ng/mL C-Reactive Protein 41.90 H (< 5.00) mg/L B-Natriuretic Peptide ( - 100) pg/mL Total Protein 7.1 (6.4-8.9) g/dL Albumin 2.9 L (3.2-5.2) g/dL Globulin 4.2 H (2-4) g/dL Albumin/Globulin Ratio 0.7 L (1-3) Urine Color Yellow Urine Appearance Clear Urine pH 5.0 (5-9) Ur Specific [place] 1.016 (1.010-1.030) Urine Protein Negative (Negative) Urine Ketones Negative (Negative) Urine Blood Negative (Negative) Urine Nitrate Negative (Negative) Urine Bilirubin Negative (Negative) Urine Urobilinogen Negative (Negative) Ur Leukocyte Esterase Negative (Negative) Urine Glucose Negative (Negative) Microbiology and Other Data: Microbiology 10/17/16 10:50 Stool Occult Blood ([place]LF[place]) - Final Stool Assess/Plan/Problems-Billing Assessment: Mr. Mata is a 61 yo male with a PMH of multiple hospitalizations, alcoholism, Chronic liver failure, DM2, seizure disorder, HTN and hemochromatosis who presented on 10/15 with report of SOB and LE edema. - Patient Problems (1) Alcoholic hepatitis with ascites Status: Chronic Comment: - paracentesis 10/16 8.5L removed. - Generalized edma much improved today; down 20 lbs since admission. - Creatinine trending down. - Low suspicion for SBP - Daily weights. - plan to DC home ion Lasix 20 mg BID; Aldactone 25 mg daily - with recommendation to titrate up on Aldactone if BP stable at f/u with PCP. check creatinine in 2 days. (2) Hepatic encephalopathy Comment: - Pt appears to be at baseline - Continue rifaximin and lactulose (3) Seizures Comment: No seizure activity. Seizure precautions. Continue home Dilantin. (4) Thrombocytopenia Comment: stable. chronic, due to ETOH abuse (5) Hemochromatosis (6) Hypertension Comment: controlled. Continue current medication regimen (7) DVT prophylaxis Comment: SQ heparin. (8) Full code status Status and Disposition: inpatient. Plan for DC to home today.
[2016-10-17 13:30] VITALS: BP 103/47
[2016-10-17 13:49] LABS: Hematocrit 27 % (42-52); Hemoglobin 8.7 g/dl (14.0-18.0)
--- NOTE | 2016-10-17 22:04 | DS ---
DISCHARGE SUMMARY: DATE OF ADMISSION: 10/15/16 DATE OF DISCHARGE: 10/17/16 PROVIDER: Aldo Bello NP ATTENDING PHYSICIAN: Dr. Te Noriega * (report dictated by Aldo Bello NP). PRIMARY CARE PROVIDER: Dr. Rosie Noriega. PRIMARY DIAGNOSES: 1. Shortness of breath secondary to fluid overload secondary to chronic liver failure secondary to alcoholic cirrhosis. 2. Hyperkalemia. SECONDARY DIAGNOSES: 1. Seizure disorder. 2. Hepatic encephalopathy. 3. History of hemochromatosis. 4. Dyslipidemia. 5. Chronic stable thrombocytopenia secondary to liver disease. 6. History of seizure disorder. 7. Type 2 diabetes, diet controlled. HISTORY OF PRESENT ILLNESS AND HOSPITAL COURSE: Please see history and physical by Dr. Diann Liu for full admission detail; but in summary, this is a 61-year-old male with a past medical history of chronic liver failure secondary to alcoholic cirrhosis, who presented to the emergency department on 10/15/16 with complaint of shortness of breath and lower extremity swelling. Mr. Mata was admitted to the hospitalist service. He reported that he was up 30 to 40 pounds from his known dry weight. He reported that his weight had been increasing over the past couple weeks and recently saw his PCP, where his Lasix was increased, but still continued to gain weight. He reported he became so swollen in his lower extremities that he became immobile, difficult bending his knees and stumbling around, reported he fell into the shower the day prior to coming into the hospital. His family pushed him to come to the hospital which he did on 10/15/16. His weight was noted to be 243 pounds on admission. The next day, on 10/16/16, he underwent a paracentesis with radiology interventionalist, Dr. Bishop, who pulled 8.5 L of fluid. On admission, the patient was started on IV Lasix. Between the paracentesis and the IV Lasix, the patient lost approximately 20 pounds. Yesterday, the patient reported much relief in his lower extremities stating he could bend his knees and actually walk with a steady gait. Today, he reports again they are much less edematous and the edema has resolved, that was above his knees, into his thighs and buttocks. He still continues to have 2+ lower extremity edema, but this is much , much improved since admission. As far as the shortness of breath, that resolved after the paracentesis. On admission, the patient was noted to have a mild leukocytosis of 10.9, which resolved yesterday and no leukocytosis today. He has had no noted fevers and no complaint of abdominal pain. Low suspicion for spontaneous bacterial peritonitis. On admission, he was noted to be mildly hyperkalemic with potassium of 5.6. He was started back on his lactulose regimen in which patient does admit that he is noncompliant with at home. The patient also admits that he has been drinking "intermittently." The patient does report that he attends AA frequently and he was given information for [facility] and encouraged to increase his support services. This discussion was had with the patient as well as his sister and father, who are at the bedside. The patient was noted to have a macrocytic anemia with a hemoglobin slightly low within his baseline. His baseline hemoglobin appears to be around 11 or 12. On admission, his hemoglobin was 9.5, down to 7.9, but on recheck, back up to 8.6. He was noted to have a positive Hemoccult stool right prior to being discharged. He has denied any black tarry stools or blood noted in his stool. He did report this morning, he had a large hard stool. I have stopped his aspirin as well as told him to discontinue ibuprofen and which the patient should probably not be on anyway as his upper endoscopy that was done on , showed that he now has a minimal grade 1 varices and mild erosive esophagitis. The patient remained hemodynamically stable throughout hospitalization. Plan to check labs in 2 days with results sent to PCP. I touched base with the primary care provider who is aware that the patient is being discharged and will have followup labs in 2 days. DISCHARGE PLAN: 1. The patient is stable for discharge home. 2. Followup labs, CBC and CMP in 2 days with the results sent to PCP. 3. Follow up with PCP within 3 to 5 days. 4. Follow up with Dr. Kemp at previously scheduled appointment, 11/28/16, at 9:30 a.m. 5. The patient was instructed to obtain daily weights and keep a record and call PCP if he gains more than 3 pounds. 6. In regards to the patient's diuresing, recommendation to consider increasing the patient's Aldactone if the patient's blood pressure is stable at followup with PCP. 7. The patient was instructed by radiology interventionalist that he should most likely undergo a paracentesis in 2 weeks, this can be scheduled through the PCP. 8. The patient was instructed to titrate his lactulose to 3 to 4 bowel movements daily. DISCHARGE MEDICATIONS: 1. Artificial Tears 1.4% one drop both eyes q.2 hours p.r.n. 2. Albuterol HFA inhaler 1 puff INH q.4 hours p.r.n. 3. Folic acid 1 mg p.o. daily. 4. Neurontin 300 mg p.o. at bedtime. 5. Dilantin 200 mg p.o. at bedtime. 6. Dilantin 100 mg p.o. daily. 7. Omeprazole 20 mg p.o. daily. 8. Multivitamin/minerals 1 tab p.o. daily. 9. Rifaximin 550 mg p.o. b.i.d. 10. Propranolol 10 mg p.o. daily. 11. Aldactone 25 mg p.o. daily. 12. Atarax 25 mg p.o. q.8 hours p.r.n. itching. 13. Lactulose 30 mL p.o. t.i.d. to 4 times a day to titrate to 3 to 4 bowel movements daily. 14. Lasix 20 mg p.o. b.i.d. Medications discontinued, ibuprofen 800 mg p.o. q.6 hours p.r.n. Medications on hold, aspirin 81 mg p.o. daily. CONDITION ON DISCHARGE: Stable. TIME SPENT: Approximately 60 minutes were spent on this discharge. ALDO BELLO NP CC: Rosie Noriega MD * [id number]/[facility] #: [id number] MTDD
== END 2016-10-17 15:00 | disposition home or self-care (01) | DRG 280 ==
LOC: ED 13:10 → MED 15:53 → OBSVTOIN 10-16 18:08
PROVIDERS: ADMIT Internal Medicine; ATTEND Internal Medicine
PROC: 0T9B70Z Drainage of Bladder with Drainage Device, Via Natural or Artificial Opening (ICD-10-PCS; principal; 2016-10-16)
PROC: 0W9G3ZZ Drainage of Peritoneal Cavity, Percutaneous Approach (ICD-10-PCS; 2016-10-16)
DX: K70.31 Alcoholic cirrhosis of liver with ascites (principal); K22.10 Ulcer of esophagus without bleeding; K70.11 Alcoholic hepatitis with ascites; D69.6 Thrombocytopenia, unspecified; I85.00 Esophageal varices without bleeding; I10 Essential (primary) hypertension; E11.9 Type 2 diabetes mellitus without complications; D53.9 Nutritional anemia, unspecified; J44.9 Chronic obstructive pulmonary disease, unspecified; Z87.891 Personal history of nicotine dependence; Z88.8 Allergy status to other drugs, medicaments and biological substances; Z91.030 Bee allergy status; J45.909 Unspecified asthma, uncomplicated; M17.0 Bilateral primary osteoarthritis of knee; F32.9 Major depressive disorder, single episode, unspecified; E66.9 Obesity, unspecified; M54.9 Dorsalgia, unspecified; R33.9 Retention of urine, unspecified; G40.909 Epilepsy, unspecified, not intractable, without status epilepticus; K72.10 Chronic hepatic failure without coma; E83.119 Hemochromatosis, unspecified; Z82.3 Family history of stroke; E87.5 Hyperkalemia; E78.5 Hyperlipidemia, unspecified; D72.829 Elevated white blood cell count, unspecified; Z91.14 Patient's other noncompliance with medication regimen; Z68.33 Body mass index [BMI] 33.0-33.9, adult
CPT/HCPCS: 36415; 49083; 71020; 80048; 80053; 80185; 81003; 82140; 82272; 82550; 82553; 83605; 83880; 84145; 84484; 85014; 85018; 85025; 85610; 85730; 86140; 87040; 93005; 94640; 94760; A9270-GY; G0378; J1644; J1940; J2270

== ENCOUNTER 2016-12-21 12:45 | Emergency (ER) | payer BC, OTHER ==
--- NOTE | 2016-12-21 15:14 | RAD ---
HISTORY: Altered mental status, status post fall COMPARISONS: June 17, 2016 TECHNIQUE: Multiple contiguous axial CT scans were obtained of the head without intravenous contrast. FINDINGS: HEMORRHAGE/INFARCT: There is no hemorrhage or acute infarct. MASSES/SHIFT: There is no mass or shift. EXTRA-AXIAL SPACES: There are no extra-axial fluid collections. SULCI AND VENTRICLES: The sulci and ventricles are normal in size and position for the patient's stated age. CEREBRUM: There are no focal parenchymal abnormalities. BRAINSTEM: There are no focal parenchymal abnormalities. CEREBELLUM: There are no focal parenchymal abnormalities. VESSELS: The vessels are grossly normal. PARANASAL SINUSES: The paranasal sinuses are clear. ORBITS: The orbits are unremarkable. BONES AND SOFT TISSUE: No bone or soft tissue abnormalities are noted. OTHER: None IMPRESSION: NO ACUTE INTRACRANIAL PATHOLOGY.
--- NOTE | 2016-12-21 15:22 | RAD ---
INDICATION: Trauma right-sided chest pain. COMPARISON: Comparison is made with a prior CT angiogram of the chest from May 28, 2008. TECHNIQUE: A CT scan of the chest was performed without intravenous contrast. Contiguous axial sections were obtained from the lung apices through the lung bases. Images were reconstructed in the coronal and sagittal planes. FINDINGS: The lungs are clear. There is a small left pleural effusion. No pneumothorax is seen. No mediastinal hemorrhage is noted. No significant enlarged mediastinal or hilar lymph nodes are seen. The heart is within normal limits in size. No pericardial effusion is present. The thoracic aorta is normal in caliber. Images of the upper abdomen demonstrate a cirrhotic liver morphology. The patient is status post cholecystectomy. There is a moderate amount of ascites present throughout the visualized portion of the abdomen. There is bilateral gynecomastia right greater than left. There is a subacute nondisplaced fracture of the right anterolateral sixth rib. There is also a subacute nondisplaced fracture of the left lateral eighth rib. There are slightly displaced age-indeterminate fractures of the left posterior lateral ninth and tenth ribs. The 11th and 12th ribs are not visualized on this study. IMPRESSION: 1. SMALL LEFT PLEURAL EFFUSION. 2. CIRRHOTIC LIVER MORPHOLOGY AND MODERATE AMOUNT OF ASCITES. 3. SUBACUTE FRACTURES OF THE RIGHT SIXTH AND LEFT EIGHTH RIBS, AGE INDETERMINATE DISPLACED FRACTURES OF THE LEFT NINTH AND TENTH RIBS.
[2016-12-21] MEDS ORDERED: Morphine INJ* 4 MG/ML 1 ML SYRINGE IV ONE (16:01)
[2016-12-21] MEDS ORDERED: Ondansetron INJ* 2 MG/ML VIAL IV ONE (16:01)
[2016-12-21 16:09] LABS: Hematocrit 29 % (42-52); Hemoglobin 9.3 g/dl (14.0-18.0); Mean Corpuscular HGB Conc 32 g/dl (31-36); Mean Corpuscular Hemoglobin 31 pg (27-31); Mean Corpuscular Volume 96 fL (80-94); Mean Platelet Volume 8 um3 (7.4-10.4); Red Blood Count 3.04 10^6/ul (4.0-5.4); Red Cell Distribution Width 22 % (10.5-15); White Blood Count 6.5 10^3/ul (3.5-10.8)
[2016-12-21 16:17] LABS: Comments Flag Yes
[2016-12-21 16:18] LABS: Add Diff/Slide Review? Slide Review Added; Albumin 2.6 g/dL (3.2-5.2); BUN/Creatinine Ratio 11.3 (8-20); Calcium 8.6 mg/dL (8.6-10.3); EGFR African American 83.7 (>60); EGFR Non-African American 65.1 (>60); Globulin 3.6 g/dL (2-4); Potassium 3.9 mmol/L (3.5-5.0); Total Bilirubin 1.9 mg/dL (0.2-1.0); Total Protein 6.2 g/dL (6.4-8.9)
[2016-12-21 16:24] LABS: Troponin I 0.05 ng/mL (<0.04)
[2016-12-21] MEDS ORDERED: traMADol TAB* 50 MG PO ONE ×2 (18:23→20:33)
--- NOTE | 2016-12-21 19:26 | ED ---
Jasen Garay Matthew, scribed for Bobby Calvin MD on 12/21/16 at 1813 . Adult Trauma - HPI Summary HPI Summary: A 61 y/o male presents to the ED after he slipping in the bathtub 10 days ago, which resulted in right sided rib pain. The pain worsened in the last 2 days. The pain is rated 3/10 in severity. The pain worsens with coughing and sneezing. Yesterday, the patient coughed, which resulted in severe pain and caused him to present to the ED today. The patient has been taking his lactulose. The patient feels like his ammonia levels are elevated and he's having AMS. The patient is not on blood thinners. - History of Current Complaint Chief Complaint: EDAltMentalStatus Stated Complaint: FALL / RIB PAIN Time Seen by Provider: 12/21/16 14:36 Hx Obtained From: Patient Mechanism of Injury: Fall - In the bathtube Ambulatory at the Scene: No Loss of Consciousness: no loss of consciousness Onset Severity: Moderate Current Severity: Moderate Pain Intensity: 3 Pain Scale Used: 0-10 Numeric Location: Chest - Right lower ribs Aggravating Factor(s): Movement, Cough Alleviating Factor(s): Nothing Associated Signs & Symptoms: Positive: Negative - Allergy/Home Medications Allergies/Adverse Reactions: Allergies Allergy/AdvReac Type Severity Reaction Status Date / Time Sertraline [From Zoloft] Allergy Intermediate Rash And Verified 12/12/16 11:48 Itching Lorazepam [From Ativan] Allergy Hallucinati Verified 12/12/16 11:48 ons BEES Allergy Unknown Uncoded 12/12/16 11:48 Reaction Details PMH/Surg Hx/FS Hx/Imm Hx Endocrine/Hematology History: Denies: Hx Diabetes - elevated glucose after acute liver failure - diet controlled, Hx Anemia, Hx Unexplained Bleeding Cardiovascular History: Reports: Hx Hypercholesterolemia, Hx Hypertension Denies: Hx Aneurysm, Hx Angina, Hx Angioplasty, Hx Auto Implanted Cardiovert Defib, Hx Cardiac Arrest, Hx Cardiomegaly, Hx Congenital Heart Disease, Hx Congestive Heart Failure, Hx Coronary Artery Disease, Hx Deep Vein Thrombosis, Hx Embolism, Hx Hypotension, Hx Pacemaker/ICD, Hx Peripheral Vascular Disease, Hx Rheumatic Fever, Hx Syncope, Hx Valvular Heart Disease, Other Cardiovascular Problems/Disorders Respiratory History: Reports: Hx Asthma, Hx Seasonal Allergies - hay fever Denies: Hx Chronic Bronchitis, Hx Chronic Obstructive Pulmonary Disease (COPD ), Hx Cystic Fibrosis, Hx Lung Cancer, Hx Pleural Effusion, Hx Pneumonia, Hx Pulmonary Edema, Hx Pulmonary Embolism, Hx Sleep Apnea, Other Respiratory Problems/Disorders GI History: Reports: Hx Cirrhosis, Hx Gall Bladder Disease, Hx Ulcer Denies: Hx Crohn's Disease, Hx Diverticulosis, Hx Gastroesophageal Reflux Disease, Hx Gastrointestinal Bleed, Hx Hiatal Hernia, Hx Irritable Bowel, Hx Jaundice, Hx Obstructive Bowel, Hx Ileostomy, Hx Pyloric Stenosis, Other GI Disorders History: Denies: Hx Renal Disease Musculoskeletal History: Reports: Hx Arthritis - both knees, Hx Orthopedic Injury Denies: Hx Back Problems, Hx Bursitis, Hx Congenital Bone Abnormalities, Hx Fibromyalgia, Hx Gout, Hx Osteoporosis, Hx Scoliosis, Hx Tendonitis, Other Musculoskeletal History Sensory History: Reports: Hx Contacts or Glasses Denies: Hx Cataracts, Hx Eye Injury, Hx Eye Prosthesis, Hx Glaucoma, Hx Legally Blind, Hx Macular Degeneration, Hx Vision Problem, Hx Deafness, Hx Hearing Aid, Hx Hearing Problem, Other Sensory Impairments Opthamlomology History: Reports: Hx Contacts or Glasses Denies: Hx Cataracts, Hx Eye Injury, Hx Eye Prosthesis, Hx Glaucoma, Hx Legally Blind, Hx Macular Degeneration, Hx Vision Problem, Other Sensory Impairments Neurological History: Reports: Hx Seizures Psychiatric History: Reports: Hx Depression, Hx Substance Abuse Denies: Hx Anxiety, Hx Attention Deficit Hyperactivity Disorder, Hx Eating Disorder, Hx Panic Disorder, Hx Post Traumatic Stress Disorder, Hx Inpatient Treatment, Hx Community Mental Health Tx, Hx Schizophrenia, Hx Bipolar Disorder , Hx Suicide Attempt, Hx of Violent Episodes Against Others, Other Psychiatric Issues/Disorders - Surgical History Surgery Procedure, Year, and Place: RIGHT ANKLE ORIF. LEFT KNEE TENDON REPAIR. CHOLECYSECTOMY. APPENDECTOMY. TONSILECTOMY Hx Anesthesia Reactions: No Infectious Disease History: No Infectious Disease History: Denies: Hx Clostridium Difficile, Hx Hepatitis, Hx Human Immunodeficiency Virus (HIV), Hx of Known/Suspected MRSA, Hx Shingles, Hx Tuberculosis, History Other Infectious Disease, Traveled Outside the [place] in Last 30 Days - Family History Known Family History: Negative: Cardiac Disease, Diabetes - Social History Alcohol Use: None Alcohol Amount: Patient states one beer last night Hx Substance Use: No Substance Use Type: Reports: None Hx Tobacco Use: Yes Smoking Status (MU): Former Smoker Type: Cigarettes Length of Time of Smoking/Using Tobacco: 5 years Have You Smoked in the Last Year: No Review of Systems Constitutional: Negative Negative: Fever, Chills Eyes: Negative Negative: Erythema Positive: Epistaxis. Negative: Sore Throat Cardiovascular: Negative Negative: Chest Pain Respiratory: Negative Negative: Shortness Of Breath, Cough Gastrointestinal: Negative Negative: Abdominal Pain, Vomiting, Nausea Positive: no symptoms reported. Negative: dysuria, hematuria Positive: Myalgia - Lower right sided rib pain. Negative: Edema Skin: Negative Negative: Rash Neurological: Negative Negative: Headache Psychological: Normal All Other Systems Reviewed And Are Negative: Yes Physical Exam Triage Information Reviewed: Yes Vital Signs On Initial Exam: Initial Vitals Temp Pulse Resp BP Pulse Ox 96.1 F 57 20 130/67 100 12/21/16 12:46 12/21/16 12:46 12/21/16 12:46 12/21/16 12:46 12/21/16 12:46 Vital Signs Reviewed: Yes Appearance: Positive: Well-Appearing, Pain Distress - mild Skin: Positive: Warm, Dry Head/Face: Positive: Other - Normocephalic; Atraumatic Eyes: Positive: Conjunctiva Clear Dental: Negative: Cervical Lymphadenopathy Neck: Positive: No Lymphadenopathy, Other: - Full ROM Respiratory/Lung Sounds: Positive: Other - Normal Effort. Negative: Rales, Rhonchi, Stridor, Tracheal Deviation, Wheezes Cardiovascular: Positive: RRR, Pulses are Symmetrical in both Upper and Lower Extremities. Negative: Murmur Abdomen Description: Positive: Nontender, Soft, Other: - No Rebound; Chronic ascites, which hes schedule to have drained tomorrow. Negative: CVA Tenderness (R), CVA Tenderness (L), Distended, Guarding Musculoskeletal: Positive: Other - Right lateral 10th rib tenderness. Negative : Edema Left, Edema Right Neurological: Positive: Alert, Oriented to Person Place, Time Psychiatric: Positive: Affect/Mood Appropriate - [place] Coma Scale Coma Scale Total: 15 Diagnostics - Vital Signs Vital Signs Temp Pulse Resp BP Pulse Ox 12/21/16 17:00 62 108/59 97 12/21/16 16:30 64 104/56 97 12/21/16 16:08 18 12/21/16 16:00 66 118/62 99 12/21/16 15:30 67 118/54 99 12/21/16 15:29 66 98 12/21/16 15:27 119/57 12/21/16 13:43 97.5 F 80 20 123/63 100 12/21/16 12:46 96.1 F 57 20 130/67 100 - Laboratory Lab Results: Lab Results 12/21/16 12/21/16 12/21/16 Range/Units 15:50 15:50 15:50 WBC 6.5 (3.5-10.8) 10^3/ul RBC 3.04 L (4.0-5.4) 10^6/ul Hgb 9.3 L (14.0-18.0) g/dl Hct 29 L (42-52) % MCV 96 H (80-94) fL MCH 31 (27-31) pg MCHC 32 (31-36) g/dl RDW 22 H (10.5-15) % Plt Count 149 L (150-450) 10^3/ul MPV 8 (7.4-10.4) um3 Neut % (Auto) 44.7 (38-83) % Lymph % (Auto) 30.7 (25-47) % Tama % (Auto) 13.7 H (1-9) % Eos % (Auto) 9.9 H (0-6) % Baso % (Auto) 1.0 (0-2) % Absolute Neuts (auto) 2.9 (1.5-7.7) 10^3/ul Absolute Lymphs (auto) 2.0 (1.0-4.8) 10^3/ul Absolute Monos (auto) 0.9 H (0-0.8) 10^3/ul Absolute Eos (auto) 0.6 (0-0.6) 10^3/ul Absolute Basos (auto) 0.1 (0-0.2) 10^3/ul Absolute Nucleated RBC 0 10^3/ul Nucleated RBC % 0.1 Sodium 134 (133-145) mmol/L Potassium 3.9 (3.5-5.0) mmol/L Chloride 99 L (101-111) mmol/L Carbon Dioxide 29 (22-32) mmol/L Anion Gap 6 (2-11) mmol/L BUN 13 (6-24) mg/dL Creatinine 1.15 (0.67-1.17) mg/dL Est GFR ( Amer) 83.7 (>60) Est GFR (Non-Af Amer) 65.1 (>60) BUN/Creatinine Ratio 11.3 (8-20) Glucose 168 H (70-100) mg/dL Lactic Acid 3.0 H* (0.5-2.0) mmol/L Calcium 8.6 (8.6-10.3) mg/dL Total Bilirubin 1.90 H (0.2-1.0) mg/dL AST 45 H (13-39) U/L ALT 19 (7-52) U/L Alkaline Phosphatase 198 H (34-104) U/L Ammonia (16-53) mol/L Troponin I 0.05 H* (<0.04) ng/mL Total Protein 6.2 L (6.4-8.9) g/dL Albumin 2.6 L (3.2-5.2) g/dL Globulin 3.6 (2-4) g/dL Albumin/Globulin Ratio 0.7 L (1-3) // Range/Units 15:50 WBC (3.5-10.8) 10^3/ul RBC (4.0-5.4) 10^6/ul Hgb (14.0-18.0) g/dl Hct (42-52) % MCV (80-94) fL MCH (27-31) pg MCHC (31-36) g/dl RDW (10.5-15) % Plt Count (150-450) 10^3/ul MPV (7.4-10.4) um3 Neut % (Auto) (38-83) % Lymph % (Auto) (25-47) % Tama % (Auto) (1-9) % Eos % (Auto) (0-6) % Baso % (Auto) (0-2) % Absolute Neuts (auto) (1.5-7.7) 10^3/ul Absolute Lymphs (auto) (1.0-4.8) 10^3/ul Absolute Monos (auto) (0-0.8) 10^3/ul Absolute Eos (auto) (0-0.6) 10^3/ul Absolute Basos (auto) (0-0.2) 10^3/ul Absolute Nucleated RBC 10^3/ul Nucleated RBC % Sodium (133-145) mmol/L Potassium (3.5-5.0) mmol/L Chloride (101-111) mmol/L Carbon Dioxide (22-32) mmol/L Anion Gap (2-11) mmol/L BUN (6-24) mg/dL Creatinine (0.67-1.17) mg/dL Est GFR ( Amer) (>60) Est GFR (Non-Af Amer) (>60) BUN/Creatinine Ratio (8-20) Glucose (70-100) mg/dL Lactic Acid (0.5-2.0) mmol/L Calcium (8.6-10.3) mg/dL Total Bilirubin (0.2-1.0) mg/dL AST (13-39) U/L ALT (7-52) U/L Alkaline Phosphatase (34-104) U/L Ammonia 86 H (16-53) mol/L Troponin I (<0.04) ng/mL Total Protein (6.4-8.9) g/dL Albumin (3.2-5.2) g/dL Globulin (2-4) g/dL Albumin/Globulin Ratio (1-3) Result Diagrams: 12/21/16 15:50 12/21/16 15:50 Lab Statement: Any lab studies that have been ordered have been reviewed, and results considered in the medical decision making process. - CT Chest CT CT Interpretation: Positive (See Comments) - IMPRESSION: 1. SMALL LEFT PLEURAL EFFUSION. 2. CIRRHOTIC LIVER MORPHOLOGY AND MODERATE AMOUNT OF ASCITES. 3. SUBACUTE FRACTURES OF THE RIGHT SIXTH AND LEFT EIGHTH RIBS, AGE INDETERMINATE DISPLACED FRACTURES OF THE LEFT NINTH AND TENTH RIBS. CT Interpretation Completed By: Radiologist Brain CT CT Interpretation: No Acute Changes - IMPRESSION: NO ACUTE INTRACRANIAL PATHOLOGY. CT Interpretation Completed By: Radiologist - EKG 17:29 Cardiac Rate: NL - 60 bpm EKG Rhythm: Sinus Rhythm EKG Interpretation: New TWI in leads V2 and V3 EKG Comparison: Other - Compared with EKG done on 10/15/16 18:34 Cardiac Rate: NL - 68 bpm EKG Rhythm: Sinus Rhythm EKG Comparison: No Significant Change - No change from previous EKG done at 17: 29 Adult Trauma Course/Dx - Course Assessment/Plan: The patinet will be signed out to Dr. Dwyer. If the patient' s troponin level remains the same after repeat troponin he should follow-up with Cardiology. - Diagnoses Provider Diagnoses: Rib fracture, Rib contusion, Elevated troponin, EKG changes Discharge - Discharge Plan Condition: Stable Disposition: OTHER Discharge Disposition Comment: The patient is signed out to Dr. Dwyer pending repeat troponin and EKG. Patient Education Materials: Rib Fracture (ED), Rib Contusion (ED) Referrals: Denis Castillo DO [Medical Doctor] - 3 Days Rosie Noriega MD [Primary Care Provider] - 2 Days Additional Instructions: Please follow-up with your primary care physician and Dr. Castillo (Cardiology). Return to the emergency department for changing or worsening symptoms The documentation as recorded by the Jasen segundo Matthew accurately reflects the service I personally performed and the decisions made by , Bobby Calvin MD.
--- NOTE | 2016-12-21 20:35 | ED ---
Progress - Progress Note Progress Note: pt signed out to check second trop which was negative ok for pt to go home. Pt' s family requested tramadol for home. two doses of 50mg given to take home Course/Dx - Diagnoses Provider Diagnoses: Rib fracture, Rib contusion, Elevated troponin, EKG changes
[2016-12-21] MEDS ORDERED: traMADol TAB* 50 MG ONE (20:36)
[2016-12-21 20:38] VITALS: BP 97/55
== END 2016-12-21 21:11 | disposition home or self-care (01) ==
LOC: ED 12:45
DX: S22.41XA Multiple fractures of ribs, right side, initial encounter for closed fracture (principal); S20.219A Contusion of unspecified front wall of thorax, initial encounter; W18.2XXA Fall in (into) shower or empty bathtub, initial encounter; Y93.9 Activity, unspecified; Y92.89 Other specified places as the place of occurrence of the external cause; Z87.891 Personal history of nicotine dependence; R04.0 Epistaxis; R79.89 Other specified abnormal findings of blood chemistry
CPT/HCPCS: 36415; 70450; 71250; 80053; 82140; 83605; 84484; 85025; 93005; 96374; 96375; 99283; A9270-GY; J2270; J2405

== ENCOUNTER 2016-12-27 17:19 | Emergency (ER) | payer BC, OTHER ==
--- NOTE | 2016-12-27 18:58 | RAD ---
Indication: Fall, unknown loss of consciousness. CT of the brain was performed without IV contrast. Comparison is made with previous exam dated December 21, 2016. Streak artifact from pulse oximeter on the forehead is noted. This is causing some streak artifact. Otherwise ventricular structures are midline. No midline shift is noted. The extra-axial spaces are unremarkable. There is no evidence of intracranial mass or hemorrhage. No other high or low density lesions are identified. Paranasal sinuses are otherwise unremarkable. Mastoid air cells demonstrate some opacification of the left mastoid air cells suggestive of mastoid sinusitis. This is unchanged from previous exam. IMPRESSION: No intracranial mass or hemorrhage is noted.
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
--- NOTE | 2016-12-27 19:05 | RAD ---
Indication: Neck injury, fall. CT of the cervical spine was obtained in the axial plane. Sagittal and coronal reconstructed images were obtained. The skull base demonstrates no evidence of fracture. There is fluid in the left mastoid air cells consistent with left-sided mastoid sinusitis. The C1 ring is intact. There is no evidence of fracture. The remainder of the vertebral bodies appear normal in height and alignment. At C2-C3 small central disc protrusion indents the thecal sac and abuts the spinal cord. No foraminal stenosis is noted. No fractures identified. At C3-C4 small central disc protrusion indents the thecal sac and abuts the spinal cord. No foraminal stenosis is noted. No fracture is identified. At C4-C5 spondylitic ridge is noted. There is no central or foraminal stenosis is identified. No fracture is identified. At C5-C6 disc space narrowing with spondylytic ridge and bilateral uncovertebral joint hypertrophy narrows both foramen. At C6-C7 spondylitic ridge flattens the thecal sac with bilateral uncovertebral joint hypertrophy and bilateral foraminal stenosis. No fracture is identified. At C7-T1 degenerative disc disease is noted. No central or foraminal stenosis is identified. No fracture is identified. IMPRESSION: No fracture of the cervical spine is noted. There is disc space narrowing and degenerative disc disease at C5-C6 and C6-C7 with dorsal and ventral osteophyte formation. Additionally small central protrusions are noted at C2-C3, C3-C4 and C4-C5.
[2016-12-27 20:08] VITALS: BP 140/69
== END 2016-12-27 20:08 | disposition home or self-care (01) ==
LOC: ED 17:19
DX: S00.81XA Abrasion of other part of head, initial encounter (principal); S60.519A Abrasion of unspecified hand, initial encounter; W19.XXXA Unspecified fall, initial encounter; Y93.9 Activity, unspecified; Y92.9 Unspecified place or not applicable; Z87.891 Personal history of nicotine dependence; M54.2 Cervicalgia
CPT/HCPCS: 70450; 72125; 99283

== ENCOUNTER 2017-01-18 09:05 | Inpatient (IN) | payer BC, OTHER ==
--- NOTE | 2017-01-18 10:31 | RAD ---
HISTORY: Confusion, fall COMPARISONS: None TECHNIQUE: Multiple contiguous axial CT scans were obtained of the head without intravenous contrast. FINDINGS: HEMORRHAGE/INFARCT: There is no hemorrhage or acute infarct. MASSES/SHIFT: There is no mass or shift. EXTRA-AXIAL SPACES: There are no extra-axial fluid collections. SULCI AND VENTRICLES: The sulci and ventricles are normal in size and position for the patient's stated age. CEREBRUM: There are no focal parenchymal abnormalities. BRAINSTEM: There are no focal parenchymal abnormalities. CEREBELLUM: There are no focal parenchymal abnormalities. VESSELS: The vessels are grossly normal. PARANASAL SINUSES: The paranasal sinuses are clear. ORBITS: The orbits are unremarkable. BONES AND SOFT TISSUE: No bone or soft tissue abnormalities are noted. OTHER: None IMPRESSION: NO ACUTE INTRACRANIAL PATHOLOGY.
--- NOTE | 2017-01-18 10:37 | RAD ---
HISTORY: Confusion, fall, neck pain COMPARISONS: December 27, 2016 TECHNIQUE: Multiple contiguous axial CT scans were obtained of the cervical spine without intravenous contrast, with coronal and sagittal multiplanar reformations. FINDINGS: BRAIN: The visualized brain is unremarkable CENTRAL CANAL: Evaluation of the central canal is limited on CT technique; however, there is no obvious canalicular mass or epidural hemorrhage. ALIGNMENT: The alignment is normal, without subluxation or dislocation. VERTEBRAL BODIES: The odontoid process is intact. The atlantoaxial intervals are symmetric. The vertebral bodies are normal in attenuation, without fracture. JOINTS: There is uncovertebral and facet hypertrophy. MUSCULATURE: Unremarkable INTERVERTEBRAL DISCS: There is diffuse loss of intervertebral disc height. AXIAL IMAGES: There is neural foraminal narrowing at C5-C6 and C6-C7. There is no significant osseous central stenosis.. There is a broad-based disc bulge at C3-C4. SOFT TISSUES: The visualized soft tissues of the neck are unremarkable. The prevertebral fat stripe is preserved. OTHER: None. IMPRESSION: DEGENERATIVE DISC DISEASE AND OSTEOARTHRITIS. NO ACUTE OSSEOUS INJURY TO THE CERVICAL SPINE
[2017-01-18 11:34] LABS: Hematocrit 30 % (42-52); Hemoglobin 9.6 g/dl (14.0-18.0); Mean Corpuscular HGB Conc 32 g/dl (31-36); Mean Corpuscular Hemoglobin 31 pg (27-31); Mean Corpuscular Volume 95 fL (80-94); Mean Platelet Volume 8 um3 (7.4-10.4); Red Blood Count 3.14 10^6/ul (4.0-5.4); Red Cell Distribution Width 20 % (10.5-15); White Blood Count 5.9 10^3/ul (3.5-10.8)
[2017-01-18 11:51] LABS: ALT 22 U/L (7-52); AST 57 U/L (13-39); Albumin 2.6 g/dL (3.2-5.2); Alkaline Phosphatase 261 U/L (34-104); Anion Gap 7 mmol/L (2-11); BUN/Creatinine Ratio 8.3 (8-20); Blood Urea Nitrogen 7 mg/dL (6-24); CO2 Carbon Dioxide 27 mmol/L (22-32); Calcium 8.1 mg/dL (8.6-10.3); Chloride 96 mmol/L (101-111); Creatine Kinase 180 U/L (10-223); EGFR African American 120.3 (>60); EGFR Non-African American 93.5 (>60); Globulin 3.5 g/dL (2-4); Glucose 195 mg/dL (70-100); Magnesium 1.7 mg/dL (1.9-2.7); Potassium 3.8 mmol/L (3.5-5.0); Sodium 130 mmol/L (133-145); Total Protein 6.1 g/dL (6.4-8.9)
[2017-01-18 11:52] LABS: Troponin I 0.01 ng/mL (<0.04)
[2017-01-18] MEDS ORDERED: Magnesium Sulfate 1 GM IV* 1 GM/100 ML BAG IV ONE (12:05)
[2017-01-18 12:15] LABS: Acetaminophen < 15 mcg/mL; Alcohol 137 mg/dL (<10); Salicylate < 2.50 mg/dL (<30)
[2017-01-18 12:23] LABS: TSH (Thyroid Stimulating Horm) 3.65 mcIU/mL (0.34-5.60)
--- NOTE | 2017-01-18 12:47 | RAD ---
HISTORY: Confusion COMPARISONS: October 25, 2016 VIEWS:1: Single frontal portable view of the chest at 12:35 PM FINDINGS: LINES AND TUBES: None. CARDIOMEDIASTINAL SILHOUETTE: The cardiomediastinal silhouette is normal for portable technique. PLEURA: The costophrenic angles are sharp. No pleural abnormalities are noted. LUNG PARENCHYMA: The lungs are clear. ABDOMEN: The upper abdomen is clear. There is no subphrenic gas. BONES AND SOFT TISSUES: No bone or soft tissue abnormalities are noted. IMPRESSION: NO ACTIVE CARDIOPULMONARY DISEASE.
[2017-01-18] MEDS ORDERED: Ondansetron INJ* 2 MG/ML VIAL IV PRN (13:15)
[2017-01-18] MEDS ORDERED: NS 0.9% 1000 ML* 1,000 ML IV SCH (13:15)
[2017-01-18] MEDS ORDERED: LACTULOSE* 30 ML UDC PO ONE (13:15)
[2017-01-18] MEDS ORDERED: Magnesium Sulf 4 GM/100 ML IV* 4,000 MG/100 ML BAG IVPB ONE (13:20)
[2017-01-18] MEDS ORDERED: Thiamine IV* 100 MG/ML 2 ML VIAL IV ONE (13:20)
[2017-01-18] MEDS ORDERED: LORazepam INJ* 2 MG/ML 1 ML VIAL IV SCH (14:00)
[2017-01-18] MEDS: LACTULOSE* 30 ML UDC PO SCH ×3 (15:48→22:42)
[2017-01-18] MEDS ORDERED: Albuterol HFA INHALER* 8 gm MDI INH PRN (16:29)
[2017-01-18] MEDS ORDERED: Diclofenac 1% GEL (NF) 100 GM TUBE TOPICAL PRN (16:29)
--- NOTE | 2017-01-18 18:20 | ED ---
Jasen Garay Matthew, scribed for Carlos Wilson MD on 01/18/17 at 1101 . Adult Trauma - HPI Summary HPI Summary: A 61 y/o male presents to the ED for a increase in falls. The patient fell two times last night and 4 times this week. He's c/o of bilateral neck pain that is worse on the left side. During the fall he also states that he hit his pelvis, but is still able to walk. Currently he's having associated headache, general weakness, unsteady gait, and double vision. The patient denies abdominal pain at this time. He had parencentesis yesterday and had 10L of fluid removed. The patient has a Hx of liver disease. - History of Current Complaint Chief Complaint: EDGeneral Stated Complaint: VISUAL DISTURBANCE/DIZZY Time Seen by Provider: 01/18/17 09:27 Hx Obtained From: Patient Mechanism of Injury: Fall Ambulatory at the Scene: No Loss of Consciousness: no loss of consciousness Onset/Duration: Started Days Ago, Traumatic, Still Present Onset of Pain: Immediate Onset Severity: Moderate Current Severity: Moderate Pain Intensity: 7 Pain Scale Used: 0-10 Numeric Location: Neck, Abdomen/Pelvis - pelvis Associated Signs & Symptoms: Positive: Other: - general weakness, headache, unsteady gait, double vision - Allergy/Home Medications Allergies/Adverse Reactions: Allergies Allergy/AdvReac Type Severity Reaction Status Date / Time Lorazepam [From Ativan] Allergy Severe Hallucinati Verified 01/03/17 15:28 ons Sertraline [From Zoloft] Allergy Intermediate Rash And Verified 01/03/17 15:28 Itching BEES Allergy Severe Hives Uncoded 01/03/17 15:28 Home Medications: Home Medications Diclofenac 1% GEL (NF) [Voltaren 1% GEL (NF)] 1 applic TOPICAL QID PRN 01/18/17 [History Confirmed 01/18/17] Epinephrine [Epipen 2-Maciej] 0.3 mg IM ONCE PRN 01/18/17 [History Confirmed ] Escitalopram (NF) [Lexapro (NF)] 10 mg PO DAILY 01/18/17 [History Confirmed ] Gabapentin CAP(*) [Neurontin 300 CAP(*)] 300 mg PO TID 01/18/17 [History Confirmed 01/18/17] Phenytoin CAP(*) [Dilantin CAP(*)] 100 mg PO QAM 01/18/17 [History Confirmed ] PMH/Surg Hx/FS Hx/Imm Hx Endocrine/Hematology History: Denies: Hx Diabetes - elevated glucose after acute liver failure - diet controlled, Hx Anemia, Hx Unexplained Bleeding Cardiovascular History: Reports: Hx Hypercholesterolemia, Hx Hypertension Denies: Hx Aneurysm, Hx Angina, Hx Angioplasty, Hx Auto Implanted Cardiovert Defib, Hx Cardiac Arrest, Hx Cardiomegaly, Hx Congenital Heart Disease, Hx Congestive Heart Failure, Hx Coronary Artery Disease, Hx Deep Vein Thrombosis, Hx Embolism, Hx Hypotension, Hx Pacemaker/ICD, Hx Peripheral Vascular Disease, Hx Rheumatic Fever, Hx Syncope, Hx Valvular Heart Disease, Other Cardiovascular Problems/Disorders Respiratory History: Reports: Hx Asthma, Hx Seasonal Allergies - hay fever Denies: Hx Chronic Bronchitis, Hx Chronic Obstructive Pulmonary Disease (COPD ), Hx Cystic Fibrosis, Hx Lung Cancer, Hx Pleural Effusion, Hx Pneumonia, Hx Pulmonary Edema, Hx Pulmonary Embolism, Hx Sleep Apnea, Other Respiratory Problems/Disorders GI History: Reports: Hx Cirrhosis, Hx Gall Bladder Disease, Hx Ulcer Denies: Hx Crohn's Disease, Hx Diverticulosis, Hx Gastroesophageal Reflux Disease, Hx Gastrointestinal Bleed, Hx Hiatal Hernia, Hx Irritable Bowel, Hx Jaundice, Hx Obstructive Bowel, Hx Ileostomy, Hx Pyloric Stenosis, Other GI Disorders History: Denies: Hx Renal Disease Musculoskeletal History: Reports: Hx Arthritis - both knees, Hx Orthopedic Injury Denies: Hx Back Problems, Hx Bursitis, Hx Congenital Bone Abnormalities, Hx Fibromyalgia, Hx Gout, Hx Osteoporosis, Hx Scoliosis, Hx Tendonitis, Other Musculoskeletal History Sensory History: Reports: Hx Contacts or Glasses Denies: Hx Cataracts, Hx Eye Injury, Hx Eye Prosthesis, Hx Glaucoma, Hx Legally Blind, Hx Macular Degeneration, Hx Vision Problem, Hx Deafness, Hx Hearing Aid, Hx Hearing Problem, Other Sensory Impairments Opthamlomology History: Reports: Hx Contacts or Glasses Denies: Hx Cataracts, Hx Eye Injury, Hx Eye Prosthesis, Hx Glaucoma, Hx Legally Blind, Hx Macular Degeneration, Hx Vision Problem, Other Sensory Impairments Neurological History: Reports: Hx Seizures Psychiatric History: Reports: Hx Depression, Hx Substance Abuse Denies: Hx Anxiety, Hx Attention Deficit Hyperactivity Disorder, Hx Eating Disorder, Hx Panic Disorder, Hx Post Traumatic Stress Disorder, Hx Inpatient Treatment, Hx Community Mental Health Tx, Hx Schizophrenia, Hx Bipolar Disorder , Hx Suicide Attempt, Hx of Violent Episodes Against Others, Other Psychiatric Issues/Disorders - Surgical History Surgery Procedure, Year, and Place: RIGHT ANKLE ORIF. LEFT KNEE TENDON REPAIR. CHOLECYSECTOMY. APPENDECTOMY. TONSILECTOMY Hx Anesthesia Reactions: No Infectious Disease History: No Infectious Disease History: Denies: Hx Clostridium Difficile, Hx Hepatitis, Hx Human Immunodeficiency Virus (HIV), Hx of Known/Suspected MRSA, Hx Shingles, Hx Tuberculosis, History Other Infectious Disease, Traveled Outside the [place] in Last 30 Days - Family History Known Family History: Negative: Cardiac Disease, Diabetes - Social History Alcohol Use: None Alcohol Amount: Patient states one beer last night Hx Substance Use: No Substance Use Type: Reports: None Hx Tobacco Use: Yes Smoking Status (MU): Former Smoker Type: Cigarettes Length of Time of Smoking/Using Tobacco: 5 years Have You Smoked in the Last Year: No Review of Systems All Other Systems Reviewed And Are Negative: Yes Physical Exam - Summary Physical Exam Summary: VITAL SIGNS: Reviewed. GENERAL: Patient is a well developed and nourished male who is lying comfortable in the stretcher. Patient is not in any acute respiratory distress. HEAD AND FACE: No signs of trauma. No ecchymosis, hematomas or skull depressions. No sinus tenderness. EYES: PERRLA, EOMI x 2, No injected conjunctiva, no nystagmus. No photophobia. EARS: Hearing grossly intact. Ear canals and tympanic membranes are within normal limits. MOUTH: Oropharynx within normal limits. NECK: Supple, trachea is midline, no adenopathy, no JVD, no carotid bruit, no c- spine tenderness, positive paraspinal muscle tenderness, neck with full ROM. ( Neck brace was placed for the patient). No meningeal signs, no Kernig's or brudzinskis signs. CHEST: Symmetric, no tenderness at palpation LUNGS: Clear to auscultation bilaterally. No wheezing or crackles. CVS: Regular rate and rhythm, S1 and S2 present, no murmurs or gallops appreciated. ABDOMEN: Soft, non-tender. Positive chronic distention and umbilical hernia reusable, not incarcerated. No rebound no guarding, and no masses palpated. Bowel sounds are normal. EXTREMITIES: FROM in all major joints, no edema, no cyanosis or clubbing. NEURO: Alert and oriented x 3. No acute neurological deficits. Speech is normal and follows commands. SKIN: Dry and warm Vital Signs On Initial Exam: Initial Vitals Temp Pulse Resp BP Pulse Ox 96.7 F 72 20 127/59 100 01/18/17 09:07 01/18/17 09:07 01/18/17 09:07 01/18/17 09:07 01/18/17 09:07 - [place] Coma Scale Coma Scale Total: 15 Diagnostics - Vital Signs Vital Signs Temp Pulse Resp BP Pulse Ox 01/18/17 09:38 75 16 128/59 98 01/18/17 09:37 98.1 F 74 16 128/59 99 01/18/17 09:36 81 97 01/18/17 09:07 96.7 F 72 20 127/59 100 - Laboratory Lab Results: Lab Results 01/18/17 01/18/17 01/18/17 Range/Units 11:20 11:20 11:20 WBC 5.9 (3.5-10.8) 10^3/ul RBC 3.14 L (4.0-5.4) 10^6/ul Hgb 9.6 L (14.0-18.0) g/dl Hct 30 L (42-52) % MCV 95 H (80-94) fL MCH 31 (27-31) pg MCHC 32 (31-36) g/dl RDW 20 H (10.5-15) % Plt Count 173 (150-450) 10^3/ul MPV 8 (7.4-10.4) um3 Neut % (Auto) 53.9 (38-83) % Lymph % (Auto) 24.3 L (25-47) % Mitchell % (Auto) 13.9 H (1-9) % Eos % (Auto) 7.1 H (0-6) % Baso % (Auto) 0.8 (0-2) % Absolute Neuts (auto) 3.2 (1.5-7.7) 10^3/ul Absolute Lymphs (auto) 1.4 (1.0-4.8) 10^3/ul Absolute Monos (auto) 0.8 (0-0.8) 10^3/ul Absolute Eos (auto) 0.4 (0-0.6) 10^3/ul Absolute Basos (auto) 0 (0-0.2) 10^3/ul Absolute Nucleated RBC 0.01 10^3/ul Nucleated RBC % 0.1 INR (Anticoag Therapy) (0.89-1.11) Sodium 130 L (133-145) mmol/L Potassium 3.8 (3.5-5.0) mmol/L Chloride 96 L (101-111) mmol/L Carbon Dioxide 27 (22-32) mmol/L Anion Gap 7 (2-11) mmol/L BUN 7 (6-24) mg/dL Creatinine 0.84 (0.67-1.17) mg/dL Est GFR ( Amer) 120.3 (>60) Est GFR (Non-Af Amer) 93.5 (>60) BUN/Creatinine Ratio 8.3 (8-20) Glucose 195 H (70-100) mg/dL Lactic Acid (0.5-2.0) mmol/L Calcium 8.1 L (8.6-10.3) mg/dL Magnesium 1.7 L (1.9-2.7) mg/dL Total Bilirubin 2.10 H (0.2-1.0) mg/dL AST 57 H (13-39) U/L ALT 22 (7-52) U/L Alkaline Phosphatase 261 H (34-104) U/L Ammonia 118 H (16-53) mol/L Total Creatine Kinase 180 (10-223) U/L Troponin I 0.01 (<0.04) ng/mL Total Protein 6.1 L (6.4-8.9) g/dL Albumin 2.6 L (3.2-5.2) g/dL Globulin 3.5 (2-4) g/dL Albumin/Globulin Ratio 0.7 L (1-3) TSH 3.65 (0.34-5.60) mcIU/mL Salicylates < 2.50 (<30) mg/dL Acetaminophen < 15 mcg/mL Serum Alcohol 137 H (<10) mg/dL 01/18/17 01/18/17 Range/Units 11:20 11:20 WBC (3.5-10.8) 10^3/ul RBC (4.0-5.4) 10^6/ul Hgb (14.0-18.0) g/dl Hct (42-52) % MCV (80-94) fL MCH (27-31) pg MCHC (31-36) g/dl RDW (10.5-15) % Plt Count (150-450) 10^3/ul MPV (7.4-10.4) um3 Neut % (Auto) (38-83) % Lymph % (Auto) (25-47) % Mitchell % (Auto) (1-9) % Eos % (Auto) (0-6) % Baso % (Auto) (0-2) % Absolute Neuts (auto) (1.5-7.7) 10^3/ul Absolute Lymphs (auto) (1.0-4.8) 10^3/ul Absolute Monos (auto) (0-0.8) 10^3/ul Absolute Eos (auto) (0-0.6) 10^3/ul Absolute Basos (auto) (0-0.2) 10^3/ul Absolute Nucleated RBC 10^3/ul Nucleated RBC % INR (Anticoag Therapy) 1.36 H (0.89-1.11) Sodium (133-145) mmol/L Potassium (3.5-5.0) mmol/L Chloride (101-111) mmol/L Carbon Dioxide (22-32) mmol/L Anion Gap (2-11) mmol/L BUN (6-24) mg/dL Creatinine (0.67-1.17) mg/dL Est GFR ( Amer) (>60) Est GFR (Non-Af Amer) (>60) BUN/Creatinine Ratio (8-20) Glucose (70-100) mg/dL Lactic Acid 2.5 H* (0.5-2.0) mmol/L Calcium (8.6-10.3) mg/dL Magnesium (1.9-2.7) mg/dL Total Bilirubin (0.2-1.0) mg/dL AST (13-39) U/L ALT (7-52) U/L Alkaline Phosphatase (34-104) U/L Ammonia (16-53) mol/L Total Creatine Kinase (10-223) U/L Troponin I (<0.04) ng/mL Total Protein (6.4-8.9) g/dL Albumin (3.2-5.2) g/dL Globulin (2-4) g/dL Albumin/Globulin Ratio (1-3) TSH (0.34-5.60) mcIU/mL Salicylates (<30) mg/dL Acetaminophen mcg/mL Serum Alcohol (<10) mg/dL Result Diagrams: 01/18/17 11:20 01/18/17 11:20 Lab Statement: Any lab studies that have been ordered have been reviewed, and results considered in the medical decision making process. - Radiology CXR Xray Interpretation: No Acute Changes - IMPRESSION: NO ACTIVE CARDIOPULMONARY DISEASE. Radiology Interpretation Completed By: Radiologist - CT C-Spine CT CT Interpretation: No Acute Changes - IMPRESSION: DEGENERATIVE DISC DISEASE AND OSTEOARTHRITIS. NO ACUTE OSSEOUS INJURY TO THE CERVICAL SPINE CT Interpretation Completed By: Radiologist Brain CT CT Interpretation: No Acute Changes - IMPRESSION: NO ACUTE INTRACRANIAL PATHOLOGY. CT Interpretation Completed By: Radiologist - EKG 13:48 Cardiac Rate: NL - 75 bpm EKG Rhythm: Sinus Rhythm EKG Interpretation: No ST elevation Adult Trauma Course/Dx - Course Assessment/Plan: A 61 y/o male presents to the ED for a increase in falls. The patient fell two times last night and 4 times this week. He's c/o of bilateral neck pain that is worse on the left side. During the fall he also states that he hit his pelvis, but is still able to walk. Currently he's having associated headache, general weakness, unsteady gait, and double vision. The patient denies abdominal pain at this time. He had parencentesis yesterday and had 10L of fluid removed. The patient has a Hx of liver disease. Blood work shows chronic anemia, sodium 130, glucose 195, magnesium 1.7 for which he was given magnesium. Ammonia level was 118 for which the patient was given lactulose PO. CXR shows. no active cardiopulmonary disease. C-Spine CT shows degenerative disc disease and osteoarthritis. no acute osseous injury to the cervical spine. Brain CT shows no acute intracranial pathology. I believe the patient symptoms are secondary hepatic encephalopathy thats why the patient has frequency falling, unsteady gait, and occasional confusion therefore I believe the patient is unsafe for discharge. I discussed the case with Dr. Carmen who accepted the patient for admission for further work-up and management. The patient at this point is hemodynamically stable. - Diagnoses Differential Diagnosis/HQI/PQRI: Positive: Contusion(s), Other - Heaptic encephalopathy, CVA, Seizure Provider Diagnoses: Hepatic encephalopathy - Physician Notifications Discussed Care Of Patient With: Dr. Carmen (Hospitalist) at 13:16 -- Notified of patient's history and will accept the patient into his services. Discharge - Discharge Plan Condition: Stable Disposition: ADMITTED TO [facility] documentation as recorded by the Jasen segundo Matthew accurately reflects the service I personally performed and the decisions made by , Carlos Wilson MD.
[2017-01-18 18:53] LABS: Urine Bilirubin Negative (Negative); Urine Glucose Negative (Negative); Urine Nitrite Negative (Negative)
[2017-01-18 19:16] LABS: Benzodiazepine Urine Screen None Detected (None Detect)
[2017-01-18] MEDS: Gabapentin CAP(*) 300 MG PO SCH (22:44)
[2017-01-18] MEDS: Furosemide TAB* 20 MG PO SCH (22:45)
[2017-01-18] MEDS: traMADol TAB* 50 MG PO PRN (22:45)
[2017-01-18] MEDS: Phenytoin CHEW TAB(*) 50 MG PO SCH (22:47)
[2017-01-18] MEDS: RiFAXimin* 550 MG TAB PO SCH (22:48)
[2017-01-18] MEDS ORDERED: Diazepam TAB(*) 5 MG PO PRN (23:13)
--- NOTE | 2017-01-18 23:36 | HP ---
ADMISSION HISTORY AND PHYSICAL: DATE OF ADMISSION: 01/18/17 TIME OF MY EVALUATION: 7:30 p.m. PRIMARY CARE PROVIDER: Dr. Rosie Noriega. GASTROENTEROLOGY SPECIALIST: Renny Kemp MD CHIEF COMPLAINT: Falls/altered mental status. HISTORY OF PRESENT ILLNESS: Mr. Mata is an unfortunate 61-year-old gentleman who comes to the emergency room for increased falls and altered mental status. The patient fell 2 times by report last night and almost 5 times this week on other occasions. The patient complained of bilateral neck pain, worse on the left side. The patient struck his pelvis, he was still able to walk. The patient had a headache and also reported general weakness, unsteady gait, and double vision. He was not in pain in the emergency room and he reports having a paracentesis yesterday where he had 10 liters of ascites removed. He has a history of recurrent ascites and paracenteses that Dr. Kemp moderates. The patient states he gets this when he becomes short of breath. The patient has a history of alcoholic cirrhosis and portal hypertension and massive ascites. In the emergency room, the patient had several lab derangements that were noteworthy. Most importantly, his ammonia level was 118. By contrast, he routinely is in the 50 to 60 range. He has been as high as 134 most recently in October 2016. During those times, he is also confused. Additionally, the patient had an alcohol level of 137. He states he did relapse with respect to his alcoholism and he admits that and feels badly about it. His initial lactic acid was 2.5, but considering his liver disease, this is not atypical and he routinely has elevated lactic acid in this range. He did not have a white blood cell count and he was not found to have a fever and was not hemodynamically unstable. He is being admitted to the hospitalist service for altered mental status secondary to hepatic encephalopathy and ongoing alcohol use. PAST MEDICAL HISTORY: 1. Hypertension. 2. Hemochromatosis. 3. Hyperlipidemia. 4. Thrombocytopenia secondary to liver disease and portal sequestration. 5. Seizure disorder. 6. Chronic liver failure. 7. History of alcoholic hepatitis and alcoholic cirrhosis. 8. Type 2 diabetes - currently diet controlled. 9. History of right ankle ORIF. 10. Status post cholecystectomy. 11. Status post appendectomy. 12. History of tonsillectomy - remotely. 13. History of prolonged hospital stay in April 2016 with head trauma and a cerebral contusion and a small intracranial hemorrhage, subsequent development of status epilepticus and prolonged hospital stay with ventilatory support. The patient has also had subsequent hepatic encephalopathy. OUTPATIENT MEDICATIONS: 1. Epinephrine p.r.n. allergy/anaphylaxis. 2. Albuterol/Ventolin 1 puff inhaled every 4 hours p.r.n. 3. Voltaren gel 1% topically 4 times daily p.r.n. aches and pains. 4. Lexapro 10 mg by mouth daily. 5. Folic acid 1 mg by mouth daily. 6. Lasix 20 mg by mouth twice daily. 7. Gabapentin 300 mg by mouth 3 times daily. 8. Lactulose 30 mL by mouth 3 times daily. 9. Multivitamin 1 tab by mouth daily. 10. Prilosec 20 mg by mouth daily. 11. Phenytoin 100 mg by mouth in the morning. 12. Phenytoin Infatabs 200 mg by mouth at bedtime. 13. Propranolol 10 mg by mouth daily. 14. Rifaximin 550 mg by mouth twice daily. 15. Spironolactone 25 mg by mouth daily. 16. Hydroxyzine/Atarax 25 mg by mouth twice daily. 17. Tramadol 50 mg by mouth every 6 hours p.r.n. pain. With respect to his medications, he reports not taking his lactulose in the past few days and that usually leads to hepatic encephalopathy and confusion. So, there is medical noncompliance as well. ALLERGIES: LORAZEPAM caused altered mental status, but he actually received doses here and is tolerating it. Also, SERTRALINE and BEE STINGS. 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 He has a 10-pack year history of smoking, but quit many years ago. He reportedly quit using alcohol in July 2016, but recently relapsed again. Negative drug use. He is unemployed currently. He lives with his who is the healthcare proxy, named Larisa Lorenz, phone number is [phone]. REVIEW OF SYSTEMS: A review of 14 systems was accomplished at the bedside. This was largely negative except for the pertinent positives mentioned above in the HPI and past medical history. PHYSICAL EXAMINATION GENERAL APPEARANCE: Middle-aged, elderly appearing man, appears stated age, in no apparent distress at this time. Awake, alert, and oriented x3, and answering questions appropriately. This is an improvement relative to what was reported to me in the emergency room. VITAL SIGNS: On admission, temperature 97.1 degrees Fahrenheit, pulse 73, respirations 18 and regular, oxygen saturation 100% on room air, blood pressure 121/60. NECK: Supple. No elevated JVD. Midline trachea. Normal thyroid. No carotid bruits. CHEST: Clear breath sounds anteriorly and posteriorly. HEART: Regular rate and rhythm. ABDOMEN: Massively protuberant and tense. He is breathing comfortably, but he has certainly many liters of ascites. He states this is about average for his abdominal girth, could not appreciate any organomegaly secondary to the massive ascites. SKIN: Warm and dry. No diaphoresis at this point. EXTREMITIES: Without clubbing, cyanosis, or edema. No deformity. Distal pulses intact. NEUROLOGIC: He moves all extremities equally and has grossly normal sensory and motor function. PSYCH: Normal affect at this time, perhaps a bit depressed, but no evident anxiety. LYMPH: No adenopathy. LABORATORY DATA/DIAGNOSTIC STUDIES: Admission Data: White blood cell count 5.9, hemoglobin 9.6, platelets 173. Coagulation parameters are abnormal with an INR of 1.36 secondary to liver dysfunction. Chemistries with multiple abnormalities including a sodium of 130, chloride low at 96, BUN and creatinine at 7 and 0.84 with a normal BUN to creatinine ratio of 8.3. Glucose elevated at 195, lactic acid elevated at 2.5 (note, liver disease), calcium 8.1, magnesium low at 1.7, total bilirubin elevated at 2.1, AST and ALT are 57 and 22 , respectively, alk phos elevated at 261, ammonia 118, total CK 180. Troponin 0.01. Total protein low at 6.1, albumin low at 2.6. Urinalysis negative across the board. Urinalysis significant for an elevated serum alcohol level of 137, but no other illicit substances noted. There is a Dilantin level pending. Radiology studies included a brain CT done at 0958 hours on 01/18/17 showing no acute intracranial pathology. He also had a cervical spine CT done at the same time at 0958 hours showing degenerative disk disease, osteoarthritis, but no acute osseous injury to the cervical spine. He also had a chest x-ray read at the same time, showing no active cardiopulmonary disease. His EKG done at 1348 hours on 01/18/17 showed normal sinus rhythm at 75 beats per minute with no acute ST or T wave changes to suggest ischemia. Normal axes and intervals. IMPRESSION: Mr. Mata is a 61-year-old gentleman with hemochromatosis and alcoholic cirrhosis, with now hepatic encephalopathy secondary to medication noncompliance and ongoing alcohol use, status post large volume paracentesis done yesterday, which is a recurrent event for respiratory symptoms and discomfort. The patient is being admitted to the hospitalist service until his mental status has recovered. The patient has required hospitalizations for this in the past and this a consequence of his tenuous status with respect to his liver disease. PLAN BY MEDICAL PROBLEM: Acute Hepatic encephalopathy in the setting of alcoholic cirrhosis and hemochromatosis and alcohol intoxication. - Aggressive lactulose administration will be started with 30 mL every 4 hours standing until the patient clears. - Recheck ammonia in the morning. - We will allow alcohol to clear. - I am placing the patient on a WAM protocol to avoid DTs. Liver cirrhosis - We will continue the patient's usual regimen for his hepatic failure, including propranolol and Xifaxan and spironolactone, as well as his nutritional regimen of multivitamins and folic acid and thiamine. - Dx of hemochromatosis noted. Massive Ascites - We will also continue oral diuretics at 20 mg of Lasix twice daily as well as spironolactone. Depression: - Continue Celexa as per outpatient regimen. Seizure Disorder - continue phenytoin and gabapentin. General - Recheck chemistries in the morning. Code Status - The patient is full code and surrogate decision maker is noted above. TIME SPENT: Total time taken to admit Mr. Mata was 75 minutes; greater than half that time spent going over the history and physical examination at the bedside and explaining the hospital plan of care to the patient. CC: Dr. Noriega; Dr. Kemp* [id number]/[facility] #: [id number] [facility]
[2017-01-19] MEDS: LACTULOSE* 30 ML UDC PO SCH ×6 (00:46→20:19)
[2017-01-19] MEDS: Omeprazole CAP* 20 MG PO SCH (05:57)
[2017-01-19] MEDS: traMADol TAB* 50 MG PO PRN ×2 (05:57→20:27)
[2017-01-19] MEDS: hydrOXYzine HCL TAB* 25 MG PO PRN ×2 (06:26→20:27)
[2017-01-19 06:36] LABS: Hematocrit 29 % (42-52); Hemoglobin 9.3 g/dl (14.0-18.0); Mean Corpuscular HGB Conc 33 g/dl (31-36); Mean Corpuscular Hemoglobin 31 pg (27-31); Mean Corpuscular Volume 96 fL (80-94); Mean Platelet Volume 7 um3 (7.4-10.4); Red Blood Count 2.98 10^6/ul (4.0-5.4); Red Cell Distribution Width 21 % (10.5-15); White Blood Count 6.4 10^3/ul (3.5-10.8)
[2017-01-19 06:56] LABS: BUN/Creatinine Ratio 7.8 (8-20); Calcium 8.1 mg/dL (8.6-10.3); EGFR African American 96.1 (>60); EGFR Non-African American 74.8 (>60); Potassium 3.8 mmol/L (3.5-5.0)
[2017-01-19] MEDS: Thiamine TAB* 100 MG TAB PO SCH (07:50)
[2017-01-19] MEDS: Phenytoin CAP(*) 100 MG CAP.ER PO SCH (07:50)
[2017-01-19] MEDS: Furosemide TAB* 20 MG PO SCH ×2 (07:50→20:19)
[2017-01-19] MEDS: Citalopram TAB* 20 MG PO SCH (07:50)
[2017-01-19] MEDS: Propranolol TAB* 10 MG PO SCH (07:50)
[2017-01-19] MEDS: Gabapentin CAP(*) 300 MG PO SCH ×3 (07:50→20:18)
[2017-01-19] MEDS: RiFAXimin* 550 MG TAB PO SCH ×2 (07:50→20:19)
[2017-01-19] MEDS: Multivitamins/Minerals TAB PO SCH (07:50)
[2017-01-19] MEDS: Spironolactone TAB* 25 MG PO SCH (07:50)
[2017-01-19] MEDS: Folic Acid TAB* 1 MG PO SCH (07:50)
[2017-01-19] MEDS ORDERED: Folic Acid TAB* 1 MG PO SCH (09:00)
[2017-01-19] MEDS ORDERED: Multivitamins/Minerals TAB PO SCH (09:00)
--- NOTE | 2017-01-19 19:06 | PN ---
Subjective Date of Service: 01/19/17 Interval History: . denies pain more alert today - was quite disoriented yesterday NH3 down impressively to ~50 from 118! better appetite. ambulating, though still unsteady. =likely dc tomorrow. . Family History: Unchanged from Admission Social History: Unchanged from Admission Past Medical History: Unchanged from Admission Objective Active Medications: .Albuterol (Ventolin Hfa Inhaler*) 1 puff INH Q4H PRN PRN Reason: SOB/WHEEZING Citalopram Hydrobromide (Celexa Tab*) 20 mg PO DAILY [facility] Last Admin: 01/19/17 07:50 Dose: 20 mg Diazepam (Valium Tab(*)) 0 mg PO .PER WAM SCORE PRN; Protocol PRN Reason: WAM scoring Last Admin: 01/19/17 00:47 Dose: 5 mg Diclofenac Sodium (Voltaren 1% Gel (Nf)) 1 applic TOPICAL QID PRN; Protocol PRN Reason: PAIN Folic Acid (Folvite Tab*) 1 mg PO DAILY [facility] Last Admin: 01/19/17 07:50 Dose: 1 mg Furosemide (Lasix Tab*) 20 mg PO BID [facility] Last Admin: 01/19/17 07:50 Dose: 20 mg Gabapentin (Neurontin Cap(*)) 300 mg PO TID [facility] Last Admin: 01/19/17 14:42 Dose: 300 mg Hydroxyzine HCl (Atarax Tab*) 25 mg PO BID PRN PRN Reason: ITCHING Last Admin: 01/19/17 06:26 Dose: 25 mg Lactulose (Lactulose*) 30 ml PO Q4H [facility] Stop: 01/20/17 02:01 Last Admin: 01/19/17 17:55 Dose: 30 ml Lactulose (Lactulose*) 30 ml PO TID [facility] Multivitamins/Minerals (Theragran/Minerals Tab*) 1 tab PO DAILY [facility] Last Admin: 01/19/17 07:50 Dose: 1 tab Omeprazole (Prilosec Cap*) 20 mg PO DAILY@0600 [facility] Last Admin: 01/19/17 05:57 Dose: 20 mg Ondansetron HCl (Zofran Inj*) 4 mg IV Q4H PRN PRN Reason: NAUSEA/VOMITING Phenytoin Sodium (Dilantin Cap(*)) 100 mg PO QAM [facility] Last Admin: 01/19/17 07:50 Dose: 100 mg Phenytoin Sodium (Dilantin Infatabs Chew Tab(*)) 200 mg PO BEDTIME [facility] Last Admin: 01/18/17 22:47 Dose: 200 mg Propranolol HCl (Inderal Tab*) 10 mg PO DAILY [facility] Last Admin: 01/19/17 07:50 Dose: 10 mg Rifaximin (Xifaxan*) 550 mg PO BID [facility] Last Admin: 01/19/17 07:50 Dose: 550 mg Spironolactone (Aldactone Tab*) 25 mg PO DAILY [facility] Last Admin: 01/19/17 07:50 Dose: 25 mg Thiamine HCl (Vitamin B-1 Tab*) 100 mg PO DAILY [facility] Last Admin: 01/19/17 07:50 Dose: 100 mg Tramadol HCl (Ultram*) 50 mg PO Q6HR PRN PRN Reason: PAIN - MODERATE TO SEVERE Last Admin: 01/19/17 05:57 Dose: 50 mg . Vital Signs 01/18/17 01/18/17 01/18/17 19:19 20:00 21:00 Temperature 98.7 F Pulse Rate 81 Respiratory 20 18 22 Rate Blood Pressure 126/59 (mmHg) O2 Sat by Pulse 96 Oximetry 01/18/17 01/18/17 01/19/17 22:44 22:45 00:15 Temperature 98.9 F Pulse Rate 81 Respiratory 22 22 19 Rate Blood Pressure 137/73 (mmHg) O2 Sat by Pulse 99 Oximetry Oxygen Devices in Use Now: None Appearance: NAD this AM Eyes: No Scleral Icterus Ears/Nose/Mouth/Throat: NL Teeth, Lips, Gums Neck: NL Appearance and Movements; NL JVP Respiratory: Symmetrical Chest Expansion and Respiratory Effort Cardiovascular: NL Sounds; No Murmurs; No JVD Abdominal: - - protuberant - leaking from paracentisis site Lymphatic: No Cervical Adenopathy Extremities: No Edema Skin: No Rash or Ulcers Neurological: - - still a bit tremulous. weak overall. Lines/Tubes/Other Access: Clean, Dry and Intact Peripheral IV Nutrition: Taking PO's Result Diagrams: 01/19/17 06:19 01/19/17 06:19 Additional Lab and Data: . Microbiology and Other Data: Microbiology 01/18/17 17:22 Aerobic Blood Culture - Preliminary Blood Venous No Growth Day 1 Anaerobic Blood Culture - Preliminary No Growth Day 1 01/18/17 17:27 Aerobic Blood Culture - Preliminary Blood Venous No Growth Day 1 Anaerobic Blood Culture - Preliminary No Growth Day 1 Assess/Plan/Problems-Billing . Assessment: 61 yo man with alcoholism and alcoholic/hemachromatosis-related liver cirrhosis and now hepatic encephalopathy with NH3 > 100 on admission. . - Patient Problems (1) Alcoholic hepatitis with ascites Current Visit: No Status: Chronic Code(s): K70.11 - ALCOHOLIC HEPATITIS WITH ASCITES SNOMED Code(s): 748570848 Comment: - restarted lactulose; patient had not been taking at home - Continue rifaximin and lactulose - Paracentesis recently removed 10 L to deal with massive ascites - Generalized edema controlled; continuing lasix (2) Alcohol abuse Current Visit: Yes Status: Chronic Priority: High Code(s): F10.10 - ALCOHOL ABUSE, UNCOMPLICATED Comment: Has not been scoring on the [facility] Social work consult [facility] addiction-treatment program has recently relapsed this is contributing to his mental status issues, 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 walk with assistance until confident no falls (5) Arthritis Current Visit: No Status: Chronic Code(s): M19.90 - UNSPECIFIED OSTEOARTHRITIS, UNSPECIFIED SITE SNOMED Code(s): 3532359 (6) Diabetes mellitus Current Visit: No Status: Chronic Code(s): E11.9 - TYPE 2 DIABETES MELLITUS WITHOUT COMPLICATIONS SNOMED Code(s): 30170625 Comment: Controlled. Continue Lantus and Lispro SS. (7) HLD (hyperlipidemia) Current Visit: No Status: Chronic Priority: Medium Code(s): E78.5 - HYPERLIPIDEMIA, UNSPECIFIED Comment: - noted (8) Hemochromatosis Current Visit: Yes Status: Chronic Priority: High Code(s): E83.119 - HEMOCHROMATOSIS, UNSPECIFIED Comment: - additional contributor for cirrhosis (9) Hypertension Current Visit: No Status: Chronic Priority: Medium Code(s): I10 - ESSENTIAL (PRIMARY) HYPERTENSION Comment: - Controlled. - Continue current medication regimen (10) Seizures Current Visit: No Status: Chronic Priority: Medium Code(s): R56.9 - UNSPECIFIED CONVULSIONS Comment: - No seizure activity. - Seizure precautions. - Continue home Dilantin. (11) Thrombocytopenia Current Visit: No Status: Chronic Code(s): D69.6 - THROMBOCYTOPENIA, UNSPECIFIED Comment: - Chronic - Due to ETOH abuse
[2017-01-19] MEDS: Phenytoin CHEW TAB(*) 50 MG PO SCH (20:18)
[2017-01-20] MEDS: LACTULOSE* 30 ML UDC PO SCH (03:19)
[2017-01-20] MEDS: Omeprazole CAP* 20 MG PO SCH (04:52)
[2017-01-20 06:06] LABS: Hematocrit 27 % (42-52); Hemoglobin 8.8 g/dl (14.0-18.0); Mean Corpuscular HGB Conc 32 g/dl (31-36); Mean Corpuscular Hemoglobin 31 pg (27-31); Mean Corpuscular Volume 96 fL (80-94); Mean Platelet Volume 7 um3 (7.4-10.4); Red Blood Count 2.81 10^6/ul (4.0-5.4); Red Cell Distribution Width 20 % (10.5-15); White Blood Count 6.7 10^3/ul (3.5-10.8)
[2017-01-20 06:21] LABS: BUN/Creatinine Ratio 8.4 (8-20); Calcium 8.1 mg/dL (8.6-10.3); EGFR Non-African American 70.7 (>60); Potassium 3.8 mmol/L (3.5-5.0)
[2017-01-20] MEDS: Spironolactone TAB* 25 MG PO SCH (08:12)
[2017-01-20] MEDS: Thiamine TAB* 100 MG TAB PO SCH (08:12)
[2017-01-20] MEDS: RiFAXimin* 550 MG TAB PO SCH (08:12)
[2017-01-20] MEDS: Gabapentin CAP(*) 300 MG PO SCH ×2 (08:12→12:24)
[2017-01-20] MEDS: Folic Acid TAB* 1 MG PO SCH (08:12)
[2017-01-20] MEDS: Multivitamins/Minerals TAB PO SCH (08:12)
[2017-01-20] MEDS: Furosemide TAB* 20 MG PO SCH (08:12)
[2017-01-20] MEDS: Propranolol TAB* 10 MG PO SCH (08:12)
[2017-01-20] MEDS: Citalopram TAB* 20 MG PO SCH (08:12)
[2017-01-20] MEDS: Phenytoin CAP(*) 100 MG CAP.ER PO SCH (08:12)
[2017-01-20 12:29] VITALS: BP 137/59
[2017-01-20] MEDS ORDERED: LACTULOSE* 30 ML UDC PO SCH ×2 (14:00)
--- NOTE | 2017-01-22 02:34 | DS ---
CC: Dr. Rosie Noriega; Dr. Renny Kemp DISCHARGE SUMMARY: DATE OF ADMISSION: 01/18/17 DATE OF DISCHARGE: 01/20/17 PRIMARY CARE PHYSICIAN: Dr. Rosie Noriega. GASTROENTEROLOGY: Dr. Renny Kemp. PRIMARY DIAGNOSIS: Hepatic encephalopathy. SECONDARY DIAGNOSES: 1. Chronic alcoholic cirrhosis with liver failure complicated by ascites. 2. Ongoing alcohol abuse. 3. Thrombocytopenia secondary to liver disease. 4. Seizure disorder. 5. Hyperlipidemia. 6. Hemochromatosis. 7. Type 2 diabetes, diet controlled. 8. Mild chronic obstructive pulmonary disease. MEDICATIONS ON DISCHARGE: 1. Thiamine 100 mg p.o. daily. 2. Multivitamin 1 tab p.o. daily. 3. Omeprazole 20 mg p.o. daily. 4. Phenytoin chewable 200 mg p.o. q.p.m. 5. Phenytoin 100 mg p.o. q.a.m. 6. Propranolol 10 mg p.o. daily. 7. Rifaximin 550 mg p.o. b.i.d. 8. Spironolactone 25 mg p.o. daily. 9. Folic acid 1 mg p.o. daily. 10. Furosemide 20 mg p.o. b.i.d. 11. Lactulose 30 mL p.o. t.i.d. to 4 times a day, titrate to 3 to 4 bowel movements per day. 12. Hydroxyzine 25 mg p.o. b.i.d. as needed. 13. Tramadol 50 mg p.o. q.6 hours p.r.n. moderate to severe pain. 14. Diclofenac 1% gel topically 4 times a day to the affected areas as needed. 15. EpiPen 0.3 mg as needed for anaphylaxis. 16. Lexapro 10 mg p.o. daily. 17. Gabapentin 300 mg p.o. t.i.d. 18. Albuterol 2 puffs q.4 hours as needed for shortness of breath or wheezing. HOSPITAL COURSE: The patient with history of ongoing alcohol use and alcoholic cirrhosis as well as cirrhosis possibly related to hemochromatosis presented with falls and confusion. He had been noncompliant with his lactulose. His presenting ammonia level was 118 and with institution of lactulose orally, it fell to 52 and was 62 on discharge. He has had an abdominal paracentesis 1 day prior to admission which is part of a chronic management of ascites, managed by Dr. Kemp. He had no abdominal tenderness or fever or concerns of spontaneous bacterial peritonitis. Other lab abnormalities noted on admission include lactic acid of 2.5, magnesium 1.7, AST 57, alkaline phosphatase 261. He has normal TSH. His INR was 1.36. Hemoglobin remained between 9.6 and 8.8. Serum alcohol level was 137 on admission. Urinalysis was negative. Chest x-ray showed no infiltrates or effusion. Head CT showed no infarct or bleed. CT of the cervical spine due to his fall and possible neck injury showed diffuse disk disease and arthritis, but no fracture or dislocation. EKG showed normal sinus rhythm, normal axis, T-wave inversions, V2 to V3, borderline prolonged QT interval. The patient was seen by Social Work and he agreed that he requires inpatient alcohol rehabilitation. Because of the ascites and hepatic encephalopathy, the patient is felt to need a rehabilitation in a location associated with the hospital. He has applications into [facility] in [place]. Social Work will contact the patient on Sunday to follow up with his referral to rehabilitation. At this point, the disposition is to home. He will abstain from alcohol. His diet should be a diabetic diet. Activity will be as tolerated. He was reminded again of the importance of compliance with his lactulose. [id number]/[facility] #: [id number] MARILUZ
== END 2017-01-20 13:40 | disposition home or self-care (01) | DRG 279 ==
LOC: ED 09:05 → MED 14:02
PROVIDERS: ADMIT Internal Medicine; ATTEND Internal Medicine
DX: K72.90 Hepatic failure, unspecified without coma (principal); K76.6 Portal hypertension; D69.59 Other secondary thrombocytopenia; K70.31 Alcoholic cirrhosis of liver with ascites; F10.20 Alcohol dependence, uncomplicated; Y90.6 Blood alcohol level of 120-199 mg/100 ml; G40.909 Epilepsy, unspecified, not intractable, without status epilepticus; E78.5 Hyperlipidemia, unspecified; E83.119 Hemochromatosis, unspecified; E11.9 Type 2 diabetes mellitus without complications; J44.9 Chronic obstructive pulmonary disease, unspecified; K70.11 Alcoholic hepatitis with ascites; K72.10 Chronic hepatic failure without coma; Z91.128 Patient's intentional underdosing of medication regimen for other reason; Z88.8 Allergy status to other drugs, medicaments and biological substances; Z91.030 Bee allergy status; Z79.899 Other long term (current) drug therapy; Z87.891 Personal history of nicotine dependence; M19.90 Unspecified osteoarthritis, unspecified site
CPT/HCPCS: 36415; 70450; 71010; 72125; 80048; 80053; 80307; 80320; 80329; 81003; 82140; 82550; 83605; 83735; 84443; 84484; 85025; 85610; 87040; 93005; A9270-GY; G0480; J2060

== ENCOUNTER 2017-01-21 23:02 | Emergency (ER) | payer BC, OTHER ==
[2017-01-22 00:43] LABS: Hematocrit 27 % (42-52); Hemoglobin 8.9 g/dl (14.0-18.0); Mean Corpuscular HGB Conc 32 g/dl (31-36); Mean Corpuscular Hemoglobin 31 pg (27-31); Mean Corpuscular Volume 96 fL (80-94); Mean Platelet Volume 7 um3 (7.4-10.4); Red Blood Count 2.86 10^6/ul (4.0-5.4); Red Cell Distribution Width 20 % (10.5-15)
--- NOTE | 2017-01-22 00:52 | ED ---
I, Oh,Rex, scribed for Kash Carr MD on 01/21/17 at 2353 . Adult Trauma - HPI Summary HPI Summary: This 61 y/o male presents to ED for surgical site bleeding at his left truncal area after a mechanical fall this evening. Pt was trying to put on this pants when he tumbled and fell from standing position. Pt has recently had paracentesis on his left truncal side on 01/17/2017 where he had 10 L fluid removed, and pt reports weeping blood since the fall that has soaked through his bandage and clothes. Pt decided to visit ED when he became concerned with amount of blood he has lost. Bleeding appears to be controlled at time of initial evaluation. PMHx includes HTN, HLD, EtOH dependence, cirrhosis, and asthma. - History of Current Complaint Chief Complaint: EDGeneral Stated Complaint: SURGICAL SITE BLEED Time Seen by Provider: 01/21/17 23:42 Hx Obtained From: Patient, Medical Records Mechanism of Injury: Blunt Trauma, Fall Loss of Consciousness: no loss of consciousness Onset/Duration: Started Hours Ago Pain Intensity: 5 Pain Scale Used: 0-10 Numeric Location: Abdomen/Pelvis - left lateral abd/trunk Aggravating Factor(s): Nothing Alleviating Factor(s): Nothing Associated Signs & Symptoms: Positive: Significant Blood Loss - Additional Pertinent History Primary Care Physician: CARO - Allergy/Home Medications Allergies/Adverse Reactions: Allergies Allergy/AdvReac Type Severity Reaction Status Date / Time Lorazepam [From Ativan] Allergy Severe Hallucinati Verified 01/03/17 15:28 ons Sertraline [From Zoloft] Allergy Intermediate Rash And Verified 01/03/17 15:28 Itching BEES Allergy Severe Hives Uncoded 01/03/17 15:28 PMH/Surg Hx/FS Hx/Imm Hx Endocrine/Hematology History: Denies: Hx Diabetes - elevated glucose after acute liver failure - diet controlled, Hx Anemia, Hx Unexplained Bleeding Cardiovascular History: Reports: Hx Hypercholesterolemia, Hx Hypertension Denies: Hx Aneurysm, Hx Angina, Hx Angioplasty, Hx Auto Implanted Cardiovert Defib, Hx Cardiac Arrest, Hx Cardiomegaly, Hx Congenital Heart Disease, Hx Congestive Heart Failure, Hx Coronary Artery Disease, Hx Deep Vein Thrombosis, Hx Embolism, Hx Hypotension, Hx Pacemaker/ICD, Hx Peripheral Vascular Disease, Hx Rheumatic Fever, Hx Syncope, Hx Valvular Heart Disease, Other Cardiovascular Problems/Disorders Respiratory History: Reports: Hx Asthma, Hx Seasonal Allergies - hay fever Denies: Hx Chronic Bronchitis, Hx Chronic Obstructive Pulmonary Disease (COPD ), Hx Cystic Fibrosis, Hx Lung Cancer, Hx Pleural Effusion, Hx Pneumonia, Hx Pulmonary Edema, Hx Pulmonary Embolism, Hx Sleep Apnea, Other Respiratory Problems/Disorders GI History: Reports: Hx Cirrhosis, Hx Gall Bladder Disease, Hx Ulcer Denies: Hx Crohn's Disease, Hx Diverticulosis, Hx Gastroesophageal Reflux Disease, Hx Gastrointestinal Bleed, Hx Hiatal Hernia, Hx Irritable Bowel, Hx Jaundice, Hx Obstructive Bowel, Hx Ileostomy, Hx Pyloric Stenosis, Other GI Disorders History: Denies: Hx Dialysis, Hx Renal Disease Musculoskeletal History: Reports: Hx Arthritis - both knees, Hx Orthopedic Injury Denies: Hx Back Problems, Hx Bursitis, Hx Congenital Bone Abnormalities, Hx Fibromyalgia, Hx Gout, Hx Osteoporosis, Hx Scoliosis, Hx Tendonitis, Other Musculoskeletal History Sensory History: Reports: Hx Contacts or Glasses Denies: Hx Cataracts, Hx Eye Injury, Hx Eye Prosthesis, Hx Glaucoma, Hx Legally Blind, Hx Macular Degeneration, Hx Vision Problem, Hx Deafness, Hx Hearing Aid, Hx Hearing Problem, Other Sensory Impairments Opthamlomology History: Reports: Hx Contacts or Glasses Denies: Hx Cataracts, Hx Eye Injury, Hx Eye Prosthesis, Hx Glaucoma, Hx Legally Blind, Hx Macular Degeneration, Hx Vision Problem, Other Sensory Impairments Neurological History: Reports: Hx Seizures Denies: Hx Dementia Psychiatric History: Reports: Hx Depression, Hx Substance Abuse Denies: Hx Anxiety, Hx Attention Deficit Hyperactivity Disorder, Hx Eating Disorder, Hx Panic Disorder, Hx Post Traumatic Stress Disorder, Hx Inpatient Treatment, Hx Community Mental Health Tx, Hx Schizophrenia, Hx Bipolar Disorder , Hx Suicide Attempt, Hx of Violent Episodes Against Others, Other Psychiatric Issues/Disorders - Surgical History Surgery Procedure, Year, and Place: RIGHT ANKLE ORIF. LEFT KNEE TENDON REPAIR. CHOLECYSECTOMY. APPENDECTOMY. TONSILECTOMY Hx Anesthesia Reactions: No Infectious Disease History: No Infectious Disease History: Denies: Hx Clostridium Difficile, Hx Hepatitis, Hx Human Immunodeficiency Virus (HIV), Hx of Known/Suspected MRSA, Hx Shingles, Hx Tuberculosis, History Other Infectious Disease, Traveled Outside the [place] in Last 30 Days - Family History Known Family History: Negative: Cardiac Disease, Diabetes - Social History Alcohol Use: Weekly Alcohol Amount: 4x wk/ 2-3 beers in a sitting Hx Substance Use: No Substance Use Type: Reports: None Hx Tobacco Use: Yes Smoking Status (MU): Former Smoker Type: Cigarettes Length of Time of Smoking/Using Tobacco: 5 years Have You Smoked in the Last Year: No Review of Systems Negative: Fever Positive: Other - surgical site bleeding at left lateral trunc s/p mechanical fall All Other Systems Reviewed And Are Negative: Yes Physical Exam Triage Information Reviewed: Yes Vital Signs On Initial Exam: Initial Vitals Temp Pulse Resp BP Pulse Ox 98.6 F 77 15 132/59 100 01/21/17 23:04 01/21/17 23:04 01/21/17 23:04 01/21/17 23:04 01/21/17 23:04 Vital Signs Reviewed: Yes Appearance: Positive: No Pain Distress, Obese Skin: Positive: Warm Head/Face: Positive: Normal Head/Face Inspection ENT: Positive: Hearing grossly normal Neck: Positive: Supple Respiratory/Lung Sounds: Positive: Breath Sounds Present Cardiovascular: Positive: RRR Abdomen Description: Positive: Nontender, Soft, Other: - small ecchymotic area on abd wall, no bleeding or drainage noted Bowel Sounds: Positive: Present Musculoskeletal: Positive: Strength/ROM Intact Neurological: Positive: Alert, Oriented to Person Place, Time Diagnostics - Vital Signs Vital Signs Temp Pulse Resp BP Pulse Ox 01/21/17 23:04 98.6 F 77 15 132/59 100 - Laboratory Lab Results: Lab Results 01/21/17 Range/Units 00:15 WBC 7.0 (3.5-10.8) 10^3/ul RBC 2.86 L (4.0-5.4) 10^6/ul Hgb 8.9 L (14.0-18.0) g/dl Hct 27 L (42-52) % MCV 96 H (80-94) fL MCH 31 (27-31) pg MCHC 32 (31-36) g/dl RDW 20 H (10.5-15) % Plt Count 133 L (150-450) 10^3/ul MPV 7 L (7.4-10.4) um3 Neut % (Auto) 53.3 (38-83) % Lymph % (Auto) 22.1 L (25-47) % [place] % (Auto) 14.2 H (1-9) % Eos % (Auto) 9.5 H (0-6) % Baso % (Auto) 0.9 (0-2) % Absolute Neuts (auto) 3.7 (1.5-7.7) 10^3/ul Absolute Lymphs (auto) 1.6 (1.0-4.8) 10^3/ul Absolute Monos (auto) 1.0 H (0-0.8) 10^3/ul Absolute Eos (auto) 0.7 H (0-0.6) 10^3/ul Absolute Basos (auto) 0.1 (0-0.2) 10^3/ul Absolute Nucleated RBC 0.02 10^3/ul Nucleated RBC % 0.2 Result Diagrams: 01/21/17 00:15 01/21/17 00:15 Lab Statement: Any lab studies that have been ordered have been reviewed, and results considered in the medical decision making process. Re-Evaluation - Re-Evaluation First Eval Change: Improved - no bleeding, labs stable Adult Trauma Course/Dx - Diagnoses Provider Diagnoses: Abdominal pain Discharge - Discharge Plan Condition: Stable Disposition: HOME Patient Education Materials: Ascites (ED) Referrals: Rosie Noriega MD [Primary Care Provider] - 2 Days The documentation as recorded by the Clement segundo Soohyun accurately reflects the service I personally performed and the decisions made by Bruno leigh David, MD.
[2017-01-22 00:58] LABS: Albumin 2.4 g/dL (3.2-5.2); BUN/Creatinine Ratio 7.5 (8-20); Calcium 8.3 mg/dL (8.6-10.3); EGFR Non-African American 70.7 (>60); Globulin 3.4 g/dL (2-4); Potassium 3.9 mmol/L (3.5-5.0); Total Bilirubin 1.8 mg/dL (0.2-1.0); Total Protein 5.8 g/dL (6.4-8.9)
[2017-01-22 01:30] VITALS: BP 128/65
== END 2017-01-22 01:28 | disposition home or self-care (01) ==
LOC: ED 23:02
DX: R10.9 Unspecified abdominal pain (principal); Z87.891 Personal history of nicotine dependence; E78.00 Pure hypercholesterolemia, unspecified; I10 Essential (primary) hypertension; F10.20 Alcohol dependence, uncomplicated; W19.XXXA Unspecified fall, initial encounter; Y92.9 Unspecified place or not applicable
CPT/HCPCS: 36415; 80053; 85025; 85610; 99282

== ENCOUNTER 2017-02-26 16:05 | Emergency (ER) | payer BC, OTHER ==
[2017-02-26 18:22] LABS: Hematocrit 25 % (42-52); Hemoglobin 8.1 g/dl (14.0-18.0); Mean Corpuscular HGB Conc 32 g/dl (31-36); Mean Corpuscular Hemoglobin 33 pg (27-31); Mean Corpuscular Volume 101 fL (80-94); Mean Platelet Volume 8 um3 (7.4-10.4); Red Blood Count 2.48 10^6/ul (4.0-5.4); Red Cell Distribution Width 22 % (10.5-15); White Blood Count 5.5 10^3/ul (3.5-10.8)
[2017-02-26 18:23] LABS: Add Diff/Slide Review? Manual Diff Added; Comments Flag Yes
[2017-02-26 18:53] LABS: Eosinophils % 7 % (0-6); Neutrophil % 52 % (38-83); Reactive Lymph % 1 % (0-6)
[2017-02-26 18:54] LABS: Hypochromasia 1+; Macrocytosis 1+
[2017-02-26 18:57] LABS: Add Path Review? YES
[2017-02-26 18:58] LABS: BUN/Creatinine Ratio 9.4 (8-20); Calcium 8.4 mg/dL (8.6-10.3); EGFR African American 82.1 (>60); EGFR Non-African American 63.8 (>60)
[2017-02-26 19:02] LABS: Potassium 4.2 mmol/L (3.5-5.0)
--- NOTE | 2017-02-26 19:33 | ED ---
Nehemias Garay Rebecca, scribed for Tierney Dwyer MD on 02/26/17 at 1715 . Complex/Multi-Sys Presentation - HPI Summary HPI Summary: Pt is a 61 y/o M who presents to ED c/o fluid leaking s/p paracentesis today. He p/w fluid drainage from the umbilicus. Sx began suddenly today at 1600 and have been constant since onset. Sx aggravated and alleviated by nothing. Denies fever, abdominal pain. Pt reports they removed approximately 10 liters today. PMHx cirrhosis for which he is undergoing paracentesis. - History Of Current Complaint Chief Complaint: EDGeneral Time Seen by Provider: 02/26/17 16:37 Hx Obtained From: Patient Onset/Duration: Sudden Onset, Still Present Timing: Constant Severity Currently: None Location: Negative Aggravating Factor(s): Nothing Alleviating Factor(s): Nothing Associated Signs And Symptoms: Positive: Other - Fluid drianage from the umbilicus. Negative: Abdominal Pain - Allergies/Home Medications Allergies/Adverse Reactions: Allergies Allergy/AdvReac Type Severity Reaction Status Date / Time Lorazepam [From Ativan] Allergy Severe Hallucinati Verified 02/26/17 10:58 ons Sertraline [From Zoloft] Allergy Intermediate Rash And Verified 02/26/17 10:58 Itching BEES Allergy Severe Hives Uncoded 02/26/17 10:58 PMH/Surg Hx/FS Hx/Imm Hx Endocrine/Hematology History: Denies: Hx Diabetes - elevated glucose after acute liver failure - diet controlled, Hx Anemia, Hx Unexplained Bleeding Cardiovascular History: Reports: Hx Hypercholesterolemia, Hx Hypertension Denies: Hx Aneurysm, Hx Angina, Hx Angioplasty, Hx Auto Implanted Cardiovert Defib, Hx Cardiac Arrest, Hx Cardiomegaly, Hx Congenital Heart Disease, Hx Congestive Heart Failure, Hx Coronary Artery Disease, Hx Deep Vein Thrombosis, Hx Embolism, Hx Hypotension, Hx Pacemaker/ICD, Hx Peripheral Vascular Disease, Hx Rheumatic Fever, Hx Syncope, Hx Valvular Heart Disease, Other Cardiovascular Problems/Disorders Respiratory History: Reports: Hx Asthma, Hx Seasonal Allergies - hay fever Denies: Hx Chronic Bronchitis, Hx Chronic Obstructive Pulmonary Disease (COPD ), Hx Cystic Fibrosis, Hx Lung Cancer, Hx Pleural Effusion, Hx Pneumonia, Hx Pulmonary Edema, Hx Pulmonary Embolism, Hx Sleep Apnea, Other Respiratory Problems/Disorders GI History: Reports: Hx Cirrhosis, Hx Gall Bladder Disease, Hx Ulcer Denies: Hx Crohn's Disease, Hx Diverticulosis, Hx Gastroesophageal Reflux Disease, Hx Gastrointestinal Bleed, Hx Hiatal Hernia, Hx Irritable Bowel, Hx Jaundice, Hx Obstructive Bowel, Hx Ileostomy, Hx Pyloric Stenosis, Other GI Disorders History: Denies: Hx Dialysis, Hx Renal Disease Musculoskeletal History: Reports: Hx Arthritis - both knees, Hx Orthopedic Injury Denies: Hx Back Problems, Hx Bursitis, Hx Congenital Bone Abnormalities, Hx Fibromyalgia, Hx Gout, Hx Osteoporosis, Hx Scoliosis, Hx Tendonitis, Other Musculoskeletal History Sensory History: Reports: Hx Contacts or Glasses Denies: Hx Cataracts, Hx Eye Injury, Hx Eye Prosthesis, Hx Glaucoma, Hx Legally Blind, Hx Macular Degeneration, Hx Vision Problem, Hx Deafness, Hx Hearing Aid, Hx Hearing Problem, Other Sensory Impairments Opthamlomology History: Reports: Hx Contacts or Glasses Denies: Hx Cataracts, Hx Eye Injury, Hx Eye Prosthesis, Hx Glaucoma, Hx Legally Blind, Hx Macular Degeneration, Hx Vision Problem, Other Sensory Impairments Neurological History: Reports: Hx Seizures Denies: Hx Dementia Psychiatric History: Reports: Hx Depression, Hx Substance Abuse Denies: Hx Anxiety, Hx Attention Deficit Hyperactivity Disorder, Hx Eating Disorder, Hx Panic Disorder, Hx Post Traumatic Stress Disorder, Hx Inpatient Treatment, Hx Community Mental Health Tx, Hx Schizophrenia, Hx Bipolar Disorder , Hx Suicide Attempt, Hx of Violent Episodes Against Others, Other Psychiatric Issues/Disorders - Surgical History Surgery Procedure, Year, and Place: RIGHT ANKLE ORIF. LEFT KNEE TENDON REPAIR. CHOLECYSECTOMY. APPENDECTOMY. TONSILECTOMY Hx Anesthesia Reactions: No Infectious Disease History: Denies: Hx Clostridium Difficile, Hx Hepatitis, Hx Human Immunodeficiency Virus (HIV), Hx of Known/Suspected MRSA, Hx Shingles, Hx Tuberculosis, History Other Infectious Disease, Traveled Outside the [place] in Last 30 Days - Family History Known Family History: Negative: Cardiac Disease, Diabetes - Social History Alcohol Use: Weekly Alcohol Amount: beer Hx Substance Use: No Substance Use Type: Reports: None Hx Tobacco Use: Yes Smoking Status (MU): Former Smoker Type: Cigarettes Length of Time of Smoking/Using Tobacco: 5 years Have You Smoked in the Last Year: No Review of Systems Negative: Fever Positive: Other - Fluid drianage from the umbilicus. Negative: Abdominal Pain All Other Systems Reviewed And Are Negative: Yes Physical Exam - Summary Physical Exam Summary: General: Well appearing, no pain distress Skin: Warm, Skin Color Reflects Adequate Perfusion, Dry Eyes: EOMI, SHAUN ENT: Pharynx normal, TMs normal Neck: Supple, nontender Respiratory: CTA, breath sounds present, no rhonchi, no wheezes, no rales Cardiovascular: RRR, no murmur, no rub, no gallop Abdomen: Soft, nontender, Non-distended, no guarding, no rebound. He has an umbilical hernia that is reducible with an ulcerating wound on it that is leaking clear, acidic fluid. Bowel: Present Musculoskeletal: ADRIANNA, No edema Neuro: Sensory/motor intact, A&Ox3, CN intact 2-12 Psych: Affect/mood appropriate Triage Information Reviewed: Yes Vital Signs On Initial Exam: Initial Vitals Temp Pulse Resp BP Pulse Ox 97.3 F 74 20 115/56 100 02/26/17 16:11 02/26/17 16:11 02/26/17 16:11 02/26/17 16:11 02/26/17 16:11 Vital Signs Reviewed: Yes Procedures - Laceration/Wound Repair 1 Location: abdomen Description: Irregular Anesthesia: Local, 1.0%, Lido Length, Depth and Shape: ulcerated wound on herniated umbilical area oozing large amounts of ascitic fluid. 3cm in length, Betadine Prep?: Yes Laceration/Wound Explored: clean Closure: Single Layer - 6 4-0 nonabsorbables Suture Type: Nylon Layer Closure?: No Sterile Dressing Applied?: No Diagnostics - Vital Signs Vital Signs Temp Pulse Resp BP Pulse Ox 02/26/17 16:11 97.3 F 74 20 115/56 100 - Laboratory Lab Results: Lab Results 02/26/17 02/26/17 Range/Units 18:15 18:15 WBC 5.5 (3.5-10.8) 10^3/ul RBC 2.48 L (4.0-5.4) 10^6/ul Hgb 8.1 L (14.0-18.0) g/dl Hct 25 L (42-52) % MCV 101 H (80-94) fL MCH 33 H (27-31) pg MCHC 32 (31-36) g/dl RDW 22 H (10.5-15) % Plt Count 106 L (150-450) 10^3/ul MPV 8 (7.4-10.4) um3 Absolute Neuts (auto) 2.8 (1.5-7.7) 10^3/ul Absolute Lymphs (auto) 1.5 (1.0-4.8) 10^3/ul Absolute Monos (auto) 0.8 (0-0.8) 10^3/ul Absolute Eos (auto) 0.4 (0-0.6) 10^3/ul Absolute Basos (auto) 0 (0-0.2) 10^3/ul Absolute Nucleated RBC 0.01 10^3/ul Neutrophils % 52 (38-83) % Lymphocytes % 26 (25-47) % Reactive Lymphs % 1 (0-6) % Monocytes % 14 H (0-13) % Eosinophils % 7 H (0-6) % Nucleated RBCs/100 WBC 1 H (0-0) Normal RBC Morphology Not Reportable Hypochromasia 1+ Macrocytosis 1+ Hem Pathologist Commnt Pending Sodium 134 (133-145) mmol/L Potassium 4.2 (3.5-5.0) mmol/L Chloride 102 (101-111) mmol/L Carbon Dioxide 26 (22-32) mmol/L Anion Gap 6 (2-11) mmol/L BUN 11 (6-24) mg/dL Creatinine 1.17 (0.67-1.17) mg/dL Est GFR ( Amer) 82.1 (>60) Est GFR (Non-Af Amer) 63.8 (>60) BUN/Creatinine Ratio 9.4 (8-20) Glucose 155 H (70-100) mg/dL Calcium 8.4 L (8.6-10.3) mg/dL Result Diagrams: 02/26/17 18:15 02/26/17 18:15 Lab Statement: Any lab studies that have been ordered have been reviewed, and results considered in the medical decision making process. Complex Multi-Symp Course/Dx - Diagnoses Provider Diagnoses: Open wound of umbilical region - Physician Notifications Discussed Care Of Patient With: Dr. Covarrubias, who advised that the wound be sutured. Time Discussed With Above Provider: 17:24 Discharge - Discharge Plan Condition: Stable Disposition: HOME Patient Education Materials: Care For Your Stitches (ED) Referrals: Rosie Noriega MD [Primary Care Provider] - 2 Days The documentation as recorded by the Nehemias segundo Rebecca accurately reflects the service I personally performed and the decisions made by me, Tierney Dwyer MD.
[2017-02-26 20:34] VITALS: BP 117/55
== END 2017-02-26 20:15 | disposition home or self-care (01) ==
LOC: ED 16:05
DX: S31.119A Laceration without foreign body of abdominal wall, unspecified quadrant without penetration into peritoneal cavity, initial encounter (principal); Z98.890 Other specified postprocedural states; X58.XXXA Exposure to other specified factors, initial encounter; Y93.9 Activity, unspecified; Y92.9 Unspecified place or not applicable; Z87.19 Personal history of other diseases of the digestive system; Z87.891 Personal history of nicotine dependence
CPT/HCPCS: 12002; 36415; 80048; 85025; 85060; 99282

== ENCOUNTER 2017-02-28 10:25 | Emergency (ER) | payer BC, OTHER ==
[2017-02-28] MEDS ORDERED: NS 0.9% 1000 ML* 1,000 ML IV ONE (11:19)
--- NOTE | 2017-02-28 11:35 | ED ---
Laceration/Wound HPI - HPI Summary HPI Summary: Patient has liver failure, and presented with a leaking umbilical hernia to this ED on 02/26/17. Dr. Dwyer closed the area with sutures, and he followed up with Dr. Christian, who additionally reclosed the area due to continued peritoneal fluid leaking. He presents today with increased leaking of fluid from the area. He also feels unwell with fatigue. He awoke this AM with saturated matress and clothing. He denies fevers, but lightheaded and weak. - History of Current Complaint Stated Complaint: ABSCESS ISUESS Time Seen by Provider: 02/28/17 10:44 Hx Obtained From: Patient, Family/Teacher Public Health Onset/Duration: Gradual Onset Aggravating: Movement Alleviating: Nothing Timing: Constant Onset Severity: Mild - no pain, but amount of fluid Current Severity: Moderate Pain Intensity: 0 Associated Signs & Symptoms: Discharge - umbilical - Additional Pertinent History Primary Care Physician: CARO - Allergy/Home Medications Allergies/Adverse Reactions: Allergies Allergy/AdvReac Type Severity Reaction Status Date / Time Lorazepam [From Ativan] Allergy Severe Hallucinati Verified 02/26/17 10:58 ons Sertraline [From Zoloft] Allergy Intermediate Rash And Verified 02/26/17 10:58 Itching BEES Allergy Severe Hives Uncoded 02/26/17 10:58 Home Medications: Home Medications Spironolactone TAB* [Aldactone TAB*] 25 mg PO DAILY 02/28/17 [History Confirmed 02/28/17] PMH/Surg Hx/FS Hx/Imm Hx Endocrine/Hematology History: Denies: Hx Diabetes - elevated glucose after acute liver failure - diet controlled, Hx Anemia, Hx Unexplained Bleeding Cardiovascular History: Reports: Hx Hypercholesterolemia, Hx Hypertension Denies: Hx Aneurysm, Hx Angina, Hx Angioplasty, Hx Auto Implanted Cardiovert Defib, Hx Cardiac Arrest, Hx Cardiomegaly, Hx Congenital Heart Disease, Hx Congestive Heart Failure, Hx Coronary Artery Disease, Hx Deep Vein Thrombosis, Hx Embolism, Hx Hypotension, Hx Pacemaker/ICD, Hx Peripheral Vascular Disease, Hx Rheumatic Fever, Hx Syncope, Hx Valvular Heart Disease, Other Cardiovascular Problems/Disorders Respiratory History: Reports: Hx Asthma, Hx Seasonal Allergies - hay fever Denies: Hx Chronic Bronchitis, Hx Chronic Obstructive Pulmonary Disease (COPD ), Hx Cystic Fibrosis, Hx Lung Cancer, Hx Pleural Effusion, Hx Pneumonia, Hx Pulmonary Edema, Hx Pulmonary Embolism, Hx Sleep Apnea, Other Respiratory Problems/Disorders GI History: Reports: Hx Cirrhosis, Hx Gall Bladder Disease, Hx Ulcer Denies: Hx Crohn's Disease, Hx Diverticulosis, Hx Gastroesophageal Reflux Disease, Hx Gastrointestinal Bleed, Hx Hiatal Hernia, Hx Irritable Bowel, Hx Jaundice, Hx Obstructive Bowel, Hx Ileostomy, Hx Pyloric Stenosis, Other GI Disorders History: Denies: Hx Dialysis, Hx Renal Disease Musculoskeletal History: Reports: Hx Arthritis - both knees, Hx Orthopedic Injury Denies: Hx Back Problems, Hx Bursitis, Hx Congenital Bone Abnormalities, Hx Fibromyalgia, Hx Gout, Hx Osteoporosis, Hx Scoliosis, Hx Tendonitis, Other Musculoskeletal History Sensory History: Reports: Hx Contacts or Glasses Denies: Hx Cataracts, Hx Eye Injury, Hx Eye Prosthesis, Hx Glaucoma, Hx Legally Blind, Hx Macular Degeneration, Hx Vision Problem, Hx Deafness, Hx Hearing Aid, Hx Hearing Problem, Other Sensory Impairments Opthamlomology History: Reports: Hx Contacts or Glasses Denies: Hx Cataracts, Hx Eye Injury, Hx Eye Prosthesis, Hx Glaucoma, Hx Legally Blind, Hx Macular Degeneration, Hx Vision Problem, Other Sensory Impairments Neurological History: Reports: Hx Seizures Denies: Hx Dementia Psychiatric History: Reports: Hx Depression, Hx Substance Abuse Denies: Hx Anxiety, Hx Attention Deficit Hyperactivity Disorder, Hx Eating Disorder, Hx Panic Disorder, Hx Post Traumatic Stress Disorder, Hx Inpatient Treatment, Hx Community Mental Health Tx, Hx Schizophrenia, Hx Bipolar Disorder , Hx Suicide Attempt, Hx of Violent Episodes Against Others, Other Psychiatric Issues/Disorders - Surgical History Surgery Procedure, Year, and Place: RIGHT ANKLE ORIF. LEFT KNEE TENDON REPAIR. CHOLECYSECTOMY. APPENDECTOMY. TONSILECTOMY Hx Anesthesia Reactions: No Infectious Disease History: No Infectious Disease History: Denies: Hx Clostridium Difficile, Hx Hepatitis, Hx Human Immunodeficiency Virus (HIV), Hx of Known/Suspected MRSA, Hx Shingles, Hx Tuberculosis, History Other Infectious Disease, Traveled Outside the [place] in Last 30 Days - Family History Known Family History: Negative: Cardiac Disease, Diabetes - Social History Occupation: Unemployed Lives: With Family Alcohol Use: Weekly Alcohol Amount: beer Hx Substance Use: No Substance Use Type: Reports: None Hx Tobacco Use: Yes Smoking Status (MU): Former Smoker Type: Cigarettes Length of Time of Smoking/Using Tobacco: 5 years Have You Smoked in the Last Year: No Review of Systems Positive: Fatigue. Negative: Fever, Chills Negative: Chest Pain Negative: Shortness Of Breath, Cough Negative: Abdominal Pain Positive: no symptoms reported Negative: Myalgia Negative: Bruising Negative: Paresthesia, Numbness All Other Systems Reviewed And Are Negative: Yes Physical Exam Triage Information Reviewed: Yes Vital Signs On Initial Exam: Initial Vitals Temp Pulse Resp BP Pulse Ox 97.4 F 65 16 109/49 100 02/28/17 10:32 02/28/17 10:32 02/28/17 10:32 02/28/17 10:32 02/28/17 10:32 Vital Signs Reviewed: Yes Appearance: Positive: Well-Appearing, No Pain Distress, Obese Skin: Positive: Warm, Skin Color Reflects Adequate Perfusion, Dry, Soft Head/Face: Positive: Normal Head/Face Inspection Eyes: Positive: EOMI, SHAUN, Conjunctiva Clear ENT: Positive: Hearing grossly normal Neck: Positive: Supple, Nontender, No Lymphadenopathy Respiratory/Lung Sounds: Positive: Clear to Auscultation, Breath Sounds Present. Negative: Rales, Rhonchi Cardiovascular: Positive: RRR Abdomen Description: Positive: Nontender, Soft, Other: - umbilical hernia without erythema and with intact sutures. Active fluid leaking when pressure applied to area. Negative: CVA Tenderness (R), CVA Tenderness (L) Bowel Sounds: Positive: Present Musculoskeletal: Negative: Edema Left, Edema Right Neurological: Positive: Sensory/Motor Intact, Alert, Oriented to Person Place, Time Psychiatric: Positive: Affect/Mood Appropriate AVPU Assessment: Alert - Nayeli Coma Scale Coma Scale Total: 15 Diagnostics - Vital Signs Vital Signs Temp Pulse Resp BP Pulse Ox 02/28/17 10:42 98.3 F 68 20 109/48 98 02/28/17 10:35 98.3 F 65 20 109/49 98 02/28/17 10:32 97.4 F 65 16 109/49 100 - Laboratory Result Diagrams: 02/28/17 11:25 02/28/17 11:25 Lab Statement: Any lab studies that have been ordered have been reviewed, and results considered in the medical decision making process. Laceration Repair Course/Dx - Course Course Of Treatment: I spoke with Dr. Covarrubias, with general surgery, for advise regarding this patient. He advised that surgery would not perform anymore treatment and that I should call GI. I called Dr. Kemp, with gastroenterology , and was advised to give the patient antibiotics and have him follow-up with their office [facility]. I let the patient know this information and he was quite upset and insisted that I check to see if he could be admitted. I spoke with Dr. Noriega, with hospital medicine, and we decided the patient did not meet any particular admission criteria. Dr. Noriega suggested attaching a colostomy bag over the area to control fluids until he could be seen by GI. The supplies were obtained and the patient was educated on management. A social work consult was also obtained at his sister's request because she believes he is not caring for himself and needs assistance. This was also arranged. - Differential Dx Differental Diagnoses: Abrasion, Abscess, Cellulitis, Compartment Syndrome, Dehiscence, Hematoma, Joint Space Violation, Joint Infection, Pneumothorax, Puncture Wound, Tendon Laceration - Clinical Impression Provider Diagnoses: umbilical hernia leakng peritoneal fluid Discharge - Discharge Plan Condition: Stable Disposition: HOME Prescriptions: Ciprofloxacin TAB* [Cipro 500 MG TAB*] 500 mg PO BID #19 tab Meds/Orders/Equipment: Home Care: Skilled Needs Location: Determined By Patient Patient Education Materials: Umbilical Hernia (ED) Referrals: [facility] [Outside] - 2 Days (Nursing, cardiopulmonary assessment, wound check, physical therapy assess and treat, and AIR SAMPLER.) Rosie Noriega MD [Primary Care Provider] - Additional Instructions: Please take the antibiotics prescribed until they are completely gone. Call Dr Lizarraga's office [facility] for an appointment and for more definitive treatment. Use over the counter medication for pain and drink plenty of fluids. Return to the emergency department if symptoms worsen.
[2017-02-28 11:36] LABS: Hematocrit 28 % (42-52); Hemoglobin 8.8 g/dl (14.0-18.0); Mean Corpuscular HGB Conc 31 g/dl (31-36); Mean Corpuscular Hemoglobin 32 pg (27-31); Mean Corpuscular Volume 102 fL (80-94); Mean Platelet Volume 8 um3 (7.4-10.4); Red Blood Count 2.74 10^6/ul (4.0-5.4); White Blood Count 5.9 10^3/ul (3.5-10.8)
[2017-02-28 11:40] LABS: Comments Flag Yes
[2017-02-28 11:41] LABS: Red Cell Distribution Width 22 % (10.5-15)
[2017-02-28 11:51] LABS: Albumin 3.1 g/dL (3.2-5.2); BUN/Creatinine Ratio 10.2 (8-20); C Reactive Protein 67.77 mg/L (< 5.00); Calcium 8.5 mg/dL (8.6-10.3); EGFR Non-African American 88.6 (>60); Globulin 2.9 g/dL (2-4); Potassium 4.3 mmol/L (3.5-5.0); Total Bilirubin 2.6 mg/dL (0.2-1.0)
[2017-02-28] MEDS ORDERED: Ciprofloxacin TAB* 500 MG PO ONE (15:03)
[2017-02-28 15:44] VITALS: BP 108/52
== END 2017-02-28 15:43 | disposition home or self-care (01) ==
LOC: ED 10:25
DX: K42.9 Umbilical hernia without obstruction or gangrene (principal); R53.83 Other fatigue; Z87.891 Personal history of nicotine dependence
CPT/HCPCS: 36415; 80053; 85025; 85610; 86140; 96360; 99283; A9270-GY

== ENCOUNTER 2017-03-26 13:43 | Inpatient (IN) | payer BC, OTHER ==
--- NOTE | 2017-03-26 15:22 | RAD ---
Indication: Fall, head injury. CT of the brain was performed without IV contrast. There is a small right-sided. Dural hematoma noted. Intraparenchymal hemorrhage is noted in the inferior frontal lobes bilaterally. There is a left-sided subdural hematoma which is chronic. There is no midline shift is noted. Mastoid air cells and paranasal sinuses are otherwise unremarkable. Scalp hematoma is noted over the left parietal convexity. IMPRESSION: Bilateral subdural hematoma in the frontal areas bilaterally. The left subdural may be chronic in nature. There may be intraparenchymal hemorrhage in the frontal lobes bilaterally with subarachnoid hemorrhage. Left parietal scalp hematoma is noted. Dr. Wilson was notified of the results at 1518 hours.
--- NOTE | 2017-03-26 15:23 | RAD ---
Indication: Mechanical fall, neck injury. CT of the cervical spine was obtained in the axial plane. Sagittal and coronal reconstructed images were obtained. The skull base demonstrates opacification of left mastoid air cells. The C1 ring is intact. The remainder of the vertebral bodies appear normal in height and alignment. At C2-C3 there is no disc protrusion. No central foraminal stenosis is noted. At C3-C4 spondylitic ridge with broad-based protrusion flattens the thecal sac. No central foraminal stenosis is noted. At C4-C5 no disc protrusion is noted. No central or foraminal stenosis is noted. At C5-C6 and C6-C7 degenerative disc disease is noted. No fractures noted. T1 no fracture is noted. Disc spaces well-preserved. Lung apices are otherwise unremarkable. IMPRESSION: Degenerative disc disease at C5-C6 and C6-C7 without evidence of fracture.
[2017-03-26 16:26] LABS: ALT 20 U/L (7-52); Alkaline Phosphatase 186 U/L (34-104); BUN/Creatinine Ratio 8.6 (8-20); Blood Urea Nitrogen 9 mg/dL (6-24); CO2 Carbon Dioxide 25 mmol/L (22-32); Calcium 8.5 mg/dL (8.6-10.3); Chloride 102 mmol/L (101-111); EGFR Non-African American 72.3 (>60); Globulin 3.2 g/dL (2-4); Glucose 127 mg/dL (70-100); Sodium 133 mmol/L (133-145); Total Protein 6.2 g/dL (6.4-8.9)
[2017-03-26 16:28] LABS: AST 70 U/L (13-39); Anion Gap 6 mmol/L (2-11); Potassium 5.3 mmol/L (3.5-5.0)
[2017-03-26 16:30] LABS: Hematocrit 26 % (42-52); Hemoglobin 8.3 g/dl (14.0-18.0); Mean Corpuscular HGB Conc 32 g/dl (31-36); Mean Corpuscular Hemoglobin 32 pg (27-31); Mean Corpuscular Volume 101 fL (80-94); Mean Platelet Volume 8 um3 (7.4-10.4); Red Blood Count 2.59 10^6/ul (4.0-5.4); Red Cell Distribution Width 20 % (10.5-15); White Blood Count 4.6 10^3/ul (3.5-10.8)
[2017-03-26 16:51] LABS: Alcohol < 10 mg/dL (<10)
--- NOTE | 2017-03-26 17:29 | CONSULT ---
Subjective Date of Service: 03/26/17 Interval History: The history was obtained from the patient and his sister who was in the room with him. He drove himself to the supermarket. When he got out of the car he was unsteady and fell. He does not recall hitting the ground. His head hurts. A bystander, possibly the general store manager, called 911. He does not think it was a seizure. He is followed by Dr. Kemp for cirrhosis with frequent paractesis. He sees Dr. Xiong for his seizure disorder. His PCP is Dr. Mallory Noriega. He took all his meds this AM and had breakfast (yogurt). He is not very strict about his diet. Family History: Findings - Mother of CVA age 52. Social History: Findings - Lives with his who is his SDM. Occ relapses with heavy drinking. Quit smoking many years ago. Past Medical History: Findings - R ankle ORIF, germania, appy, tonsillectomy. Alcoholic hepatitis, ?? hemachromatosis. Review of Systems - Review of Systems Constitutional Symptoms: Negative: Weight Gain, Weight Loss, Weakness, Fatigue, Fever, Night Sweats, Unexplained Falls, Other Dermatology: Positive: Normal HEENT: Positive: Normal Eyes: Positive: Normal Thyroid: Positive: Normal Pulmonary: Positive: Normal Cardiology: Positive: Normal Gastroenterology: Positive: Other - ascites Genital - Urinary: Positive: Normal Musculoskeletal: Negative: Joint Pain, Joint Stiffness, Arthritis, Osteoporosis, Low Back Pain , Sciatica, Joint Deformities, Kyphoscoliosis, Other Endocrinology: Positive: Normal Hematologic/Lymphatic: Positive: Anemia Neurology: Positive: Headache Psychiatry: Positive: Normal Allergic/Immunologic: Negative: Hx Anaphylaxis, Hx Angioedema, Hx Environmental, Hx Seasonal, Athsma, Hx HIV, Immunocompromise, Swollen Glands LymphNodes, Other Objective Oxygen Devices in Use Now: Nasal Cannula Appearance: Alert, supine on ED stretcher. In good spirits. Looks comfortable. Eyes: No Scleral Icterus Neck: NL Appearance and Movements; NL JVP, No Thyroid Enlargement, Masses Respiratory: Symmetrical Chest Expansion and Respiratory Effort, Clear to Auscultation, Clear to Percussion Cardiovascular: NL Sounds; No Murmurs; No JVD, RRR, No Edema, - Extremities: No Edema, No Clubbing, Cyanosis, - Skin: No Rash or Ulcers, No Nodules or Sclerosis, - Neurological: Alert and Oriented x 3, NL Sensation - Moves all limbs. Result Diagrams: 03/26/17 15:59 03/26/17 15:59 Assessment/Plan - Billing Plan By Medical Problem: 1. Cirrhosis. Failry well compensated. I would continue his usual meds. I requested an add on ammonia level. 2. Seizure disorder. I requested an add on phenytoin level. 3. Gait disorder. He uses a cane, likely would benefit from PT eval. VTE PPX: SCD's Diet: When appropriate should be on low salt diet.
--- NOTE | 2017-03-26 17:43 | HP ---
H&P (Free Text) History and Physical: History and Physical Date of Admission: 03/26/17 Admitting Service: Neurosurgery Attending Provider: Dr. Chris Denney HPI: This is a 61 year old male with past medical history significant for cirrhosis, HTN, seizures, alcohol abuse and frequent falls who [place] [facility] after a fall in the [employer] parking lot around 1pm this afternoon. He states that he drove himself to [employer] and was walking in the parking lot, turned his head which caused dizziness and he fell backward. He sustained an injury to the left posterior head. It seems as though he lost consciousness as he does not recall hitting his head but does recall someone standing over him in the parking lot. He recently fell on 03/24/17, did not hit his head and did not present for evaluation. Currently, he reports headache. He denies fever, chills , lightheadedness, dizziness, vision changes, hearing changes, changes in speech , chest pain, difficulty breathing and nausea. He denies numbness, tingling, weakness and pain in the bilateral lower extremities. He does report pain in the knee for which he has received treatment and which he attributes some gait unsteadiness. He states that he has taken all of his meds today and verbally confirms taking the dilantin. He has only eaten yogurt this morning. Past medical history: 1. Cirrhosis 2. Alcoholic hepatitis 3. History of seizures 4. Alcohol abuse 5. Asthma 6. Depression Past surgical history: 1. ORIF right ankel 2. Cholecystectomy 3. Appendectomy 4. Tonsillectomy The patient reports no adverse reactions to anesthesiology in the past and no history of DVT. Social history: The patient lives at home with his . He is a former smoker and quit approximately 35 years ago; smoked less than 1 ppd prior to quitting. He has a history of alcohol abuse, reports that he does not currently drink alcohol. Allergies: 1. Lorazepam 2. Sertraline 3. Bees Home medications: 1. Multivitamins/Minerals TAB* [Theragran/minerals TAB*] 1 tab PO DAILY tab [Rx Confirmed 03/26/17] 2. Phenytoin CHEW TAB(*) [Dilantin Infatabs CHEW TAB(*)] 200 mg PO BEDTIME #120 tab.chew 05/11/16 [Rx Confirmed 03/26/17] 3. Propranolol TAB* [Inderal TAB*] 10 mg PO DAILY #30 tab 05/11/16 [Rx Confirmed 03/26/17] 4. RiFAXimin* [Xifaxan*] 550 mg PO BID #60 tab 05/11/16 [Rx Confirmed 03/26/17] 5. Folic Acid TAB* [Folvite TAB*] 1 mg PO DAILY 06/17/16 [History Confirmed ] 6. Furosemide TAB* [Lasix TAB*] 40 mg PO QAM, 20 mg PO at 1400 #30 tab 10/17/16 [Rx Confirmed 03/26/17] 7. Lactulose* 30 ml PO TID #60 udc 10/17/16 [Rx Confirmed 03/26/17] 8. hydrOXYzine HCL TAB* [Atarax 25 MG TAB*] 25 mg PO BID PRN 11/07/16 [History Confirmed 03/26/17] 9. Epinephrine [Epipen 2-Maciej] 0.3 mg IM ONCE PRN 01/18/17 [History Confirmed ] 10. Escitalopram (NF) [Lexapro 10 mg (NF)] 10 mg PO DAILY 01/18/17 [History Confirmed 03/26/17] 11. Phenytoin CAP(*) [Dilantin CAP(*)] 100 mg PO QAM 01/18/17 [History Confirmed 03/26/17] 12. Albuterol HFA INHALER* [Ventolin HFA Inhaler*] 2 puff INH Q4H PRN #0 [Rx Confirmed 03/26/17] 13. Thiamine TAB* [Vitamin B-1 TAB 100 MG*] 100 mg PO DAILY #30 tab 01/20/17 [ Rx Confirmed 03/26/17] 14. Cyanocobalamin TAB* [Vitamin B12 TAB*] 500 mg PO DAILY 02/14/17 [History Confirmed 03/26/17] 15. Spironolactone (NF) [Spironolactone 50 MG (NF)] 50 mg PO DAILY 03/26/17 [ History Confirmed 03/26/17] ROS: Full ROS completed; pertinent findings stated in HPI and all others negative. Physical Exam: Vital Signs: Temp Pulse Resp BP Pulse Ox 98.9 F 66 17 127/61 98 03/26/17 14:15 03/26/17 17:00 03/26/17 17:00 03/26/17 14:15 03/26/17 17:00 General: Alert and oriented to person, place and time. Laying comfortably in bed , no distress. HEENT: Tenderness to left posterior head. No lacerations to head. PERRLA, EOMI, sclerae anicteric. Gross hearing intact. Moist mucus membranes. Neck: Mild tenderness to palpation of posterior neck. Muscle soreness. No adenopathy. CV: Pedal pulses palpable. Radial pulses 2+ and equal. Lungs: Breathing is nonlabored. Lungs are clear. Abdomen: Normoactive bowel sounds. Abdomen is distended, nontender. Umbilical hernia present. Neuro: Speech is clear and coherent. Responds appropriately to questions. Able to follow commands well. CN II-XII intact. Pupils are equal and reactive. Strength 5/5 in upper and lower extremities. Gait not assessed; per patient uses cane for stability. Sensation intact throughout. Negative Leong's bilaterally. Extremities: Full ROM throughout. Pretibial pitting edema bilaterally. Skin: Mild skin abrasions to left arm. Laboratory Tests 03/26/17 03/26/17 03/26/17 15:59 15:59 15:59 WBC 4.6 RBC 2.59 L Hgb 8.3 L Hct 26 L MCV 101 H MCH 32 H MCHC 32 RDW 20 H Plt Count 111 L MPV 8 Neut % (Auto) 52.9 Lymph % (Auto) 26.0 Hockley % (Auto) 14.5 H Eos % (Auto) 5.4 Baso % (Auto) 1.2 Absolute Neuts (auto) 2.4 Absolute Lymphs (auto) 1.2 Absolute Monos (auto) 0.7 Absolute Eos (auto) 0.2 Absolute Basos (auto) 0.1 Absolute Nucleated RBC 0.01 Nucleated RBC % 0.2 INR (Anticoag Therapy) Sodium 133 Potassium 5.3 H Chloride 102 Carbon Dioxide 25 Anion Gap 6 BUN 9 Creatinine 1.05 Est GFR ( Amer) 93.0 Est GFR (Non-Af Amer) 72.3 BUN/Creatinine Ratio 8.6 Glucose 127 H Lactic Acid 2.5 H* Calcium 8.5 L Total Bilirubin 2.20 H AST 70 H ALT 20 Alkaline Phosphatase 186 H Ammonia Total Protein 6.2 L Albumin 3.0 L Globulin 3.2 Albumin/Globulin Ratio 0.9 L Serum Alcohol < 10 03/26/17 03/26/17 15:59 15:59 WBC RBC Hgb Hct MCV MCH MCHC RDW Plt Count MPV Neut % (Auto) Lymph % (Auto) Hockley % (Auto) Eos % (Auto) Baso % (Auto) Absolute Neuts (auto) Absolute Lymphs (auto) Absolute Monos (auto) Absolute Eos (auto) Absolute Basos (auto) Absolute Nucleated RBC Nucleated RBC % INR (Anticoag Therapy) 1.38 H Sodium Potassium Chloride Carbon Dioxide Anion Gap BUN Creatinine Est GFR ( Amer) Est GFR (Non-Af Amer) BUN/Creatinine Ratio Glucose Lactic Acid Calcium Total Bilirubin AST ALT Alkaline Phosphatase Ammonia 80 H Total Protein Albumin Globulin Albumin/Globulin Ratio Serum Alcohol Imagin. CT brain on 03/26/17 shows bifrontal contusions with small right frontal and parafalcine subdural hematoma. 2. CT cervical spine on 03/26/17 shows no fracture. Assessment: This is a 61 year old male with past medical history significant for frequent falls, cirrhosis and seizure disorder who presented to [place] [facility] after a fall this afternoon sustaining an injury to the head. CT brain shows subdural hematoma. Patient is neurologically intact. There is no indication for neurosurgical intervention at this time. Plan: 1. Admit to ICU. 2. Neuro checks Q1 hour. 3. Clear liquids diet. 4. Chest xray for potential surgery. 5. Consult Hospitalist for management of chronic conditions. 6. Repeat CT brain 03/27/17 at 0500.
--- NOTE | 2017-03-26 17:45 | RAD ---
INDICATION: Preoperative COMPARISON: Chest x-ray January 18, 2017 TECHNIQUE: Portable AP erect image obtained at 1732 hours is submitted and FINDINGS: Bones/Soft Tissues: There are no acute bony findings. Cardiomediastinal: The cardiomediastinal silhouette is normal. Lungs: There are no infiltrates. Pleura: There are no pleural effusions. Other: None IMPRESSION: NO ACTIVE DISEASE.
[2017-03-26 18:13] LABS: Phenytoin 25.6 mcg/mL (10-20)
[2017-03-26] MEDS ORDERED: hydrOXYzine HCL TAB* 25 MG PO PRN (18:15)
[2017-03-26] MEDS ORDERED: Albuterol HFA INHALER* 8 gm MDI INH PRN (18:15)
[2017-03-26] MEDS: HYDROcodone/ACETAMIN 5-325 MG* 1 TAB PO PRN (19:48)
[2017-03-26] MEDS: RiFAXimin* 550 MG TAB PO SCH (21:21)
[2017-03-27] MEDS: HYDROcodone/ACETAMIN 5-325 MG* 1 TAB PO PRN ×3 (01:02→13:55)
--- NOTE | 2017-03-27 07:22 | PN ---
Subjective Date of Service: 03/27/17 Interval History: No more headache. No new c/o. Family History: Findings - Mother of CVA age 52. Social History: Findings - Lives with his who is his SDM. Occ relapses with heavy drinking. Quit smoking many years ago. Past Medical History: Findings - R ankle ORIF, germania, appy, tonsillectomy. Alcoholic hepatitis, ?? hemachromatosis. Objective Active Medications: Hydrocodone Bitart/Acetaminophen ([place] 5-325 Tab*) 2 tab PO Q4H PRN PRN Reason: PAIN Last Admin: 03/27/17 05:29 Dose: 2 tab Albuterol (Ventolin Hfa Inhaler*) 2 puff INH Q4H PRN PRN Reason: SOB/WHEEZING Citalopram Hydrobromide (Celexa Tab*) 20 mg PO DAILY [facility] Cyanocobalamin (Vitamin B12 Tab*) 500 mcg PO DAILY [facility] Folic Acid (Folvite Tab*) 1 mg PO DAILY AILYN Furosemide (Lasix Tab*) 20 mg PO 1400 AILYN Furosemide (Lasix Tab*) 40 mg PO 0900 AILYN Hydroxyzine HCl (Atarax Tab*) 25 mg PO BID PRN PRN Reason: ITCHING Lactulose (Lactulose*) 30 ml PO TID [facility] Last Admin: 03/26/17 21:21 Dose: 30 ml Multivitamins/Minerals (Theragran/Minerals Tab*) 1 tab PO DAILY AILYN Phenytoin Sodium (Dilantin Cap(*)) 100 mg PO QAM [facility] Phenytoin Sodium (Dilantin Infatabs Chew Tab(*)) 200 mg PO BEDTIME AILYN Propranolol HCl (Inderal Tab*) 10 mg PO DAILY AILYN Rifaximin (Xifaxan*) 550 mg PO BID [facility] Last Admin: 03/26/17 21:21 Dose: 550 mg Spironolactone (Aldactone Tab*) 25 mg PO DAILY AILYN Thiamine HCl (Vitamin B-1 Tab*) 100 mg PO DAILY [facility] Vital Signs 03/26/17 03/26/17 03/26/17 17:04 17:30 18:00 Temperature 97.7 F Pulse Rate 64 66 Respiratory 15 16 Rate Blood Pressure 120/59 115/60 (mmHg) O2 Sat by Pulse 96 98 Oximetry 06/19/17 06/19/17 06/19/17 18:02 18:15 18:30 Temperature Pulse Rate 61 Respiratory 16 13 Rate Blood Pressure 143/74 117/58 (mmHg) O2 Sat by Pulse 99 Oximetry 03/26/17 03/26/17 03/26/17 18:45 19:00 19:46 Temperature 98.9 F Pulse Rate 63 61 Respiratory 17 16 Rate Blood Pressure 123/58 136/62 (mmHg) O2 Sat by Pulse 97 99 Oximetry 03/26/17 03/26/17 03/26/17 19:52 20:00 21:00 Temperature 98.9 F Pulse Rate 64 66 Respiratory 17 13 Rate Blood Pressure 112/59 99/55 (mmHg) O2 Sat by Pulse 97 93 Oximetry 03/26/17 03/26/17 03/26/17 22:00 23:00 23:44 Temperature 99.2 F Pulse Rate 65 64 Respiratory 14 16 Rate Blood Pressure 103/52 99/55 (mmHg) O2 Sat by Pulse 93 94 Oximetry 03/27/17 03/27/17 03/27/17 00:00 00:01 00:23 Temperature Pulse Rate 70 64 65 Respiratory 20 16 15 Rate Blood Pressure 110/54 (mmHg) O2 Sat by Pulse 96 94 95 Oximetry 03/27/17 03/27/17 03/27/17 01:00 02:00 03:00 Temperature Pulse Rate 65 67 64 Respiratory 17 15 14 Rate Blood Pressure 131/52 102/47 98/56 (mmHg) O2 Sat by Pulse 95 93 94 Oximetry 03/27/17 03/27/17 03/27/17 03:12 04:00 04:05 Temperature 98.7 F Pulse Rate 61 Respiratory 12 12 Rate Blood Pressure 108/52 (mmHg) O2 Sat by Pulse 94 Oximetry 03/27/17 03/27/17 03/27/17 05:00 05:21 06:00 Temperature 97.6 F Pulse Rate 59 63 Respiratory 15 13 16 Rate Blood Pressure (mmHg) O2 Sat by Pulse 95 94 Oximetry Oxygen Devices in Use Now: None Appearance: Alert, supine in ICU bed. Neutral affect. Looks comfortable. Eyes: No Scleral Icterus Abdominal: - - soft, somewhat distended. Not tender. Nl BS. Extremities: No Edema, No Clubbing, Cyanosis, - Skin: No Rash or Ulcers, No Nodules or Sclerosis, - Neurological: NL Sensation, - - Speech clear and fluent. Face symmetric. Moves all limbs. ? fully oriented. Result Diagrams: 03/26/17 15:59 03/26/17 15:59 Microbiology and Other Data: Microbiology 03/26/17 21:26 Nasal Screen MRSA (PCR)(DELFINO) - Final Nasal Mrsa Negative Assess/Plan/Problems-Billing Plan By Medical Problem: 1. Cirrhosis. Failry well compensated. I would continue his usual meds. I requested an add on ammonia level. 2. Seizure disorder. I requested an add on phenytoin level. 3. Gait disorder. He uses a cane, likely would benefit from PT eval. VTE PPX: SCD's Diet: When appropriate should be on low salt diet. - Patient Problems (1) Cirrhosis Current Visit: Yes Status: Acute Comment: Continue rifaximin, lactulose. Ammonia 80 on 03/26. May have some cognitive problems due to ammonia level and/or some chronic encephlaopathy and/or high phenytoin level. Diet and spironolactone dose changed due to high K+. (2) Seizures Current Visit: No Status: Chronic Priority: Medium Code(s): R56.9 - UNSPECIFIED CONVULSIONS SNOMED Code(s): 72658664 Comment: Note phenytoin level 25 on 03/26. I will clarify with sister his home dose. (3) Unsteady gait Current Visit: No Status: Acute Priority: High Code(s): R26.81 - UNSTEADINESS ON FEET SNOMED Code(s): 25181646 Comment: PT eval requested. Activity order is up w/ assistance.
[2017-03-27] MEDS: Propranolol TAB* 10 MG PO SCH (08:14)
[2017-03-27] MEDS: Phenytoin CAP(*) 100 MG CAP.ER PO SCH (08:14)
[2017-03-27] MEDS: Citalopram TAB* 20 MG PO SCH (08:15)
[2017-03-27] MEDS: Multivitamins/Minerals TAB PO SCH (08:15)
[2017-03-27] MEDS: RiFAXimin* 550 MG TAB PO SCH ×2 (08:15→22:03)
[2017-03-27] MEDS: Furosemide TAB* 40 MG PO SCH (08:15)
[2017-03-27] MEDS: Folic Acid TAB* 1 MG PO SCH (08:15)
[2017-03-27] MEDS: Spironolactone TAB* 25 MG PO SCH (08:15)
[2017-03-27] MEDS: Thiamine TAB* 100 MG TAB PO SCH (08:15)
[2017-03-27] MEDS: Cyanocobalamin TAB* 500 MCG PO SCH (08:15)
--- NOTE | 2017-03-27 08:33 | RAD ---
Indication: Follow-up subdural hematomas. CT of the brain was performed without IV contrast and compared to previous exam dated March 26, 2017. Again noted are bifrontal intraparenchymal hematomas which have increased since previous exam. Small subdural hematomas remain stable or slightly smaller than previous exam. Left parafalcine subdural hematoma is noted. No midline shift is noted. There may BE increasing mass effect. INDICATION: Marked progression of bifrontal intraparenchymal hematomas without mass effect. Small subdural hematomas less conspicuous on the current exam. Parafalcine subdural is likely present is unchanged. No midline shift is noted.
[2017-03-27] MEDS ORDERED: Spironolactone TAB* 25 MG PO SCH (09:00)
[2017-03-27] MEDS ORDERED: Furosemide TAB* 40 MG PO SCH (09:00)
[2017-03-27 09:59] LABS: Hematocrit 26 % (42-52); Hemoglobin 8.2 g/dl (14.0-18.0); Mean Corpuscular HGB Conc 32 g/dl (31-36); Mean Corpuscular Hemoglobin 32 pg (27-31); Mean Corpuscular Volume 102 fL (80-94); Mean Platelet Volume 9 um3 (7.4-10.4); Red Blood Count 2.57 10^6/ul (4.0-5.4); Red Cell Distribution Width 21 % (10.5-15); White Blood Count 4.8 10^3/ul (3.5-10.8)
[2017-03-27 10:16] LABS: BUN/Creatinine Ratio 9.4 (8-20); Blood Urea Nitrogen 10 mg/dL (6-24); CO2 Carbon Dioxide 26 mmol/L (22-32); Calcium 8.4 mg/dL (8.6-10.3); Chloride 103 mmol/L (101-111); EGFR Non-African American 71.5 (>60); Glucose 157 mg/dL (70-100); Sodium 135 mmol/L (133-145)
[2017-03-27 11:55] LABS: Anion Gap 6 mmol/L (2-11)
[2017-03-27] MEDS ORDERED: Ondansetron INJ* 2 MG/ML VIAL IV PRN (12:06)
[2017-03-27] MEDS ORDERED: Ondansetron INJ* 2 MG/ML VIAL ONE (12:12)
[2017-03-27] MEDS: Furosemide TAB* 20 MG PO SCH (13:55)
[2017-03-27] MEDS ORDERED: Furosemide TAB* 20 MG PO SCH (14:00)
[2017-03-27] MEDS: Phenytoin CHEW TAB(*) 50 MG PO SCH (22:03)
[2017-03-27] MEDS: Acetaminophen TAB* 325 MG PO PRN (23:53)
[2017-03-28] MEDS: Acetaminophen TAB* 325 MG PO PRN ×2 (06:11→14:07)
--- NOTE | 2017-03-28 08:16 | PN ---
Progress Note - Progress Note SOAP: Subjective: [This is a 61 year old male with bifrontal contusions. He is feeling well this morning and denies headache. He states that he has been up out of bed to the commode with assistance. Sometimes when he gets up he feels very steady like he could walk a far distance and other times, he feels unsteady and has difficulty getting to the bedside commode. Denies lightheadedness, dizziness, nausea, chest pain and difficulty breathing. ] Objective: [ Vital Signs: Temp Pulse Resp BP Pulse Ox 98.7 F 68 12 107/41 97 03/28/17 07:41 03/28/17 07:00 03/28/17 07:00 03/28/17 07:00 03/28/17 07:00 General: Alert to person, place and time. No distress. Neuro: Speech is clear and coherent. Answers questions appropriately. EOMI, PERRL. Motor and sensory intact. Finger to nose coordination intact. Extremities: Full ROM ] Assessment: [Neurologically stable at this time. Repeat CT brain this morning is unchanged from scan on 03/27/17. No indication for surgery.] Plan: [1. Continue neuro checks. 2. Daily CBC, BMP. ]
--- NOTE | 2017-03-28 08:22 | RAD ---
INDICATION: Follow-up bifrontal parenchymal hemorrhage COMPARISON: Similar examination March 27, 2017 acquired at 0505 hours TECHNIQUE: Contiguous axial sections of the brain were obtained from the skull base to the vertex without contrast. FINDINGS: Again seen is intraparenchymal hemorrhage involving the bilateral frontal lobes, more severely the left than the right. In largest axial dimension the intraparenchymal hemorrhage on the right measures 1.4 x 3.9 cm, compared to 1.5 x 3.9 cm on the previous CT. The largest focus of hemorrhage on the left measures 1.6 x 2.9, previously 1.7 x 2.9. More posteriorly to this there are smaller foci of hemorrhage abutting the sphenoid bone that have not changed in appearance. There is subarachnoid hemorrhage outside the right frontal lobe that is similar in appearance to the previous CT examination. No new areas of hemorrhage are identified. No acute calvarial fracture is seen. There is a small amount of dependent left-sided mastoid air cell effusion similar in appearance to the previous CT examination. IMPRESSION: Intraparenchymal and extra-axial bleed involving the bilateral frontal lobes that has not changed substantially from the previous day CT but has enlarged since March 26, 2017.
--- NOTE | 2017-03-28 08:56 | PN ---
Subjective Date of Service: 03/28/17 Interval History: Patient seen this morning. Says he is feeling well overall, feels that he is steadily improving in terms of his gait. AOX3. Reports his last drink was 6 days ago. Says he is due for paracentesis from Dr. Bishop which is scheduled for tomorrow. Family History: Unchanged from Admission Social History: Unchanged from Admission Past Medical History: Unchanged from Admission Objective Active Medications: Acetaminophen (Tylenol Tab*) 650 mg PO Q6H PRN Albuterol (Ventolin Hfa Inhaler*) 2 puff INH Q4H PRN Citalopram Hydrobromide (Celexa Tab*) 20 mg PO DAILY AILYN Cyanocobalamin (Vitamin B12 Tab*) 500 mcg PO DAILY AILYN Folic Acid (Folvite Tab*) 1 mg PO DAILY AILYN Furosemide (Lasix Tab*) 20 mg PO 1400 AILYN Furosemide (Lasix Tab*) 40 mg PO 0900 AILYN Hydroxyzine HCl (Atarax Tab*) 25 mg PO BID PRN Lactated Ringer's (Lactated Ringers 1000 Ml Bag*) 1,000 mls @ 75 mls/hr IV PER RATE AILYN Lactulose (Lactulose*) 30 ml PO QID AILYN Multivitamins/Minerals (Theragran/Minerals Tab*) 1 tab PO DAILY AILYN Ondansetron HCl (Zofran Inj*) 4 mg IV Q4H PRN Phenytoin Sodium (Dilantin Cap(*)) 100 mg PO QAM AILYN Phenytoin Sodium (Dilantin Infatabs Chew Tab(*)) 200 mg PO BEDTIME AILYN Propranolol HCl (Inderal Tab*) 10 mg PO DAILY AILYN Rifaximin (Xifaxan*) 550 mg PO BID AILYN Spironolactone (Aldactone Tab*) 25 mg PO DAILY AILYN Thiamine HCl (Vitamin B-1 Tab*) 100 mg PO DAILY AILYN Vital Signs 03/27/17 03/27/17 03/27/17 09:00 10:00 11:00 Temperature 98.1 F Pulse Rate 59 55 57 Respiratory 17 12 17 Rate Blood Pressure (mmHg) O2 Sat by Pulse 96 97 99 Oximetry 03/28/17 03/28/17 03/28/17 06:00 07:00 07:41 Temperature 97.9 F 98.7 F Pulse Rate 66 68 Respiratory 17 15 Rate Blood Pressure 99/46 107/41 (mmHg) O2 Sat by Pulse 97 97 Oximetry Oxygen Devices in Use Now: None Appearance: Middle-aged, M, laying in bed in NAD Eyes: No Scleral Icterus Ears/Nose/Mouth/Throat: Mucous Membranes Moist Neck: NL Appearance and Movements; NL JVP Respiratory: Symmetrical Chest Expansion and Respiratory Effort, Clear to Auscultation Cardiovascular: NL Sounds; No Murmurs; No JVD, RRR Abdominal: - - Soft, non-tender, distended, BS+ Lymphatic: No Cervical Adenopathy Extremities: No Edema Skin: No Rash or Ulcers Neurological: Alert and Oriented x 3, - - no focal deficits Result Diagrams: 03/27/17 09:52 03/27/17 09:52 Microbiology and Other Data: Assess/Plan/Problems-Billing Traumatic SDH and SAH in a 61 yo M with hx of EtOH abuse, cirrhosis, seizure disorder - Patient Problems (1) SDH (subdural hematoma) Current Visit: Yes Comment: SAH. Stable on CT scan. Neurosurgery managing. (2) Cirrhosis Current Visit: Yes Comment: Continue rifaximin, lactulose. Ammonia 80 on 03/26 , repeat level ordered for today Does not seem encephalopathic at this time although nursing has noted some confusion this AM that seems to come and go. Diet and spironolactone dose changed due to high K+, recheck K today. Due for paracentesis tomorrow, will confirm with NS whether they have objection to this due to bleed (3) Seizures Current Visit: No Comment: Note phenytoin level 25 on 03/26. Recheck this AM. Pharmacy confirmed dose 100 mg in AM, 200 mg in PM. (4) Unsteady gait Current Visit: No Comment: Continue PT (5) DVT prophylaxis Current Visit: No Comment: SCDs
[2017-03-28 09:29] LABS: Hematocrit 23 % (42-52); Hemoglobin 7.4 g/dl (14.0-18.0); Mean Corpuscular HGB Conc 32 g/dl (31-36); Mean Corpuscular Hemoglobin 32 pg (27-31); Mean Corpuscular Volume 101 fL (80-94); Mean Platelet Volume 8 um3 (7.4-10.4); Red Blood Count 2.29 10^6/ul (4.0-5.4); Red Cell Distribution Width 21 % (10.5-15); White Blood Count 5.5 10^3/ul (3.5-10.8)
[2017-03-28 09:40] LABS: BUN/Creatinine Ratio 9.9 (8-20); Calcium 8.1 mg/dL (8.6-10.3); EGFR African American 97.2 (>60); EGFR Non-African American 75.6 (>60); Phenytoin 21.6 mcg/mL (10-20)
[2017-03-28] MEDS: Folic Acid TAB* 1 MG PO SCH (09:42)
[2017-03-28] MEDS: Thiamine TAB* 100 MG TAB PO SCH (09:42)
[2017-03-28] MEDS: Cyanocobalamin TAB* 500 MCG PO SCH (09:42)
[2017-03-28] MEDS: Phenytoin CAP(*) 100 MG CAP.ER PO SCH (09:42)
[2017-03-28] MEDS: Multivitamins/Minerals TAB PO SCH (09:42)
[2017-03-28] MEDS: Spironolactone TAB* 25 MG PO SCH (09:42)
[2017-03-28] MEDS: Furosemide TAB* 40 MG PO SCH (09:42)
[2017-03-28] MEDS: Propranolol TAB* 10 MG PO SCH (09:43)
[2017-03-28] MEDS: RiFAXimin* 550 MG TAB PO SCH ×2 (09:43→22:05)
[2017-03-28] MEDS: Citalopram TAB* 20 MG PO SCH (09:43)
[2017-03-28 10:54] LABS: Potassium 4.1 mmol/L (3.5-5.0)
[2017-03-28] MEDS: Furosemide TAB* 20 MG PO SCH (14:07)
[2017-03-28] MEDS: Phenytoin CHEW TAB(*) 50 MG PO SCH (22:05)
[2017-03-29] MEDS: Acetaminophen TAB* 325 MG PO PRN (00:13)
[2017-03-29 05:37] LABS: Hematocrit 24 % (42-52); Hemoglobin 7.5 g/dl (14.0-18.0); Mean Corpuscular HGB Conc 32 g/dl (31-36); Mean Corpuscular Hemoglobin 32 pg (27-31); Mean Corpuscular Volume 102 fL (80-94); Mean Platelet Volume 8 um3 (7.4-10.4); Red Blood Count 2.34 10^6/ul (4.0-5.4); Red Cell Distribution Width 20 % (10.5-15); White Blood Count 5.3 10^3/ul (3.5-10.8)
[2017-03-29 05:40] LABS: Add Diff/Slide Review? Slide Review Added; Comments Flag Yes
[2017-03-29 05:48] LABS: Calcium 8.2 mg/dL (8.6-10.3); EGFR African American 129.1 (>60); EGFR Non-African American 100.4 (>60); Potassium 3.7 mmol/L (3.5-5.0)
[2017-03-29 06:36] LABS: BUN/Creatinine Ratio 8.9 (8-20)
--- NOTE | 2017-03-29 07:34 | PN ---
Progress Note - Progress Note SOAP: Subjective: []Patient somewhat combative this AM Denies headache Anxious to get paracentesis Says he is going to take out his IV and leave Objective: []Neuro intact Argumentative this am Assessment: []Stable neurologically Plan: []Will discuss paracentesis with Dr. Bishop
[2017-03-29] MEDS ORDERED: fentaNYL* 50 MCG/ML 2 ML VIAL (100 MCG VIAL) ONE (08:18)
[2017-03-29] MEDS: Propranolol TAB* 10 MG PO SCH (08:37)
[2017-03-29] MEDS: Folic Acid TAB* 1 MG PO SCH (08:37)
[2017-03-29] MEDS: Thiamine TAB* 100 MG TAB PO SCH (08:37)
[2017-03-29] MEDS: Spironolactone TAB* 25 MG PO SCH (08:37)
[2017-03-29] MEDS: Phenytoin CAP(*) 100 MG CAP.ER PO SCH (08:37)
[2017-03-29] MEDS: Multivitamins/Minerals TAB PO SCH (08:37)
[2017-03-29] MEDS: Furosemide TAB* 40 MG PO SCH (08:37)
[2017-03-29] MEDS: RiFAXimin* 550 MG TAB PO SCH (08:37)
[2017-03-29] MEDS: Cyanocobalamin TAB* 500 MCG PO SCH (08:37)
[2017-03-29] MEDS: Citalopram TAB* 20 MG PO SCH (08:37)
--- NOTE | 2017-03-29 08:38 | PN ---
Subjective Date of Service: 03/29/17 Interval History: Patient seen this morning. Was agitated this morning regarding getting his paracentesis done but seems calm now. Explained his ongoing PT/OT eval and he says he's "100% on board" with recommendations. Otherwise feels well. Family History: Unchanged from Admission Social History: Unchanged from Admission Past Medical History: Unchanged from Admission Objective Active Medications: Acetaminophen (Tylenol Tab*) 650 mg PO Q6H PRN Albuterol (Ventolin Hfa Inhaler*) 2 puff INH Q4H PRN Citalopram Hydrobromide (Celexa Tab*) 20 mg PO DAILY AILYN Cyanocobalamin (Vitamin B12 Tab*) 500 mcg PO DAILY AILYN Folic Acid (Folvite Tab*) 1 mg PO DAILY AILYN Furosemide (Lasix Tab*) 20 mg PO 1400 AILYN Furosemide (Lasix Tab*) 40 mg PO 0900 AILYN Hydroxyzine HCl (Atarax Tab*) 25 mg PO BID PRN Lactated Ringer's (Lactated Ringers 1000 Ml Bag*) 1,000 mls @ 75 mls/hr IV PER RATE AILYN Lactulose (Lactulose*) 30 ml PO QID AILYN Multivitamins/Minerals (Theragran/Minerals Tab*) 1 tab PO DAILY AILYN Ondansetron HCl (Zofran Inj*) 4 mg IV Q4H PRN Phenytoin Sodium (Dilantin Cap(*)) 100 mg PO QAM AILYN Phenytoin Sodium (Dilantin Infatabs Chew Tab(*)) 200 mg PO BEDTIME AILYN Propranolol HCl (Inderal Tab*) 10 mg PO DAILY AILYN Rifaximin (Xifaxan*) 550 mg PO BID AILYN Spironolactone (Aldactone Tab*) 25 mg PO DAILY AILYN Thiamine HCl (Vitamin B-1 Tab*) 100 mg PO DAILY AILYN Vital Signs 03/28/17 03/28/17 03/28/17 09:00 09:15 10:00 Temperature Pulse Rate 65 68 Respiratory 15 15 12 Rate Blood Pressure 106/57 109/58 (mmHg) O2 Sat by Pulse 95 95 Oximetry 03/29/17 03/29/17 03/29/17 04:00 05:00 07:57 Temperature 98.3 F 99 F Pulse Rate 69 66 Respiratory 16 14 Rate Blood Pressure 93/40 117/56 (mmHg) O2 Sat by Pulse 96 97 Oximetry Oxygen Devices in Use Now: None Appearance: Middle-aged, M, sitting in chair in NAD Eyes: No Scleral Icterus Ears/Nose/Mouth/Throat: Mucous Membranes Moist Neck: NL Appearance and Movements; NL JVP Respiratory: Symmetrical Chest Expansion and Respiratory Effort, Clear to Auscultation Cardiovascular: NL Sounds; No Murmurs; No JVD, RRR Abdominal: - - Soft, distended, non-tender, BS+ Lymphatic: No Cervical Adenopathy Extremities: - - Trace LE edema Skin: No Rash or Ulcers Neurological: Alert and Oriented x 3 Result Diagrams: 03/29/17 05:05 03/29/17 05:05 Microbiology and Other Data: Assess/Plan/Problems-Billing Traumatic SDH and SAH in a 61 yo M with hx of EtOH abuse, cirrhosis, seizure disorder - Patient Problems (1) SDH (subdural hematoma) Current Visit: Yes Comment: SAH. Stable on CT scan. Neurosurgery managing. (2) Cirrhosis Current Visit: Yes Comment: Continue rifaximin, lactulose. Ammonia trending down Diet and spironolactone dose changed due to high K+, now normalized Paracentesis today (3) Seizures Current Visit: No Comment: Continue Pheyntoin 100 mg in AM, 200 mg in PM. (4) Unsteady gait Current Visit: No Comment: Continue PT (5) DVT prophylaxis Current Visit: No Comment: SCDs
[2017-03-29 11:03] VITALS: BP 120/50
--- NOTE | 2017-03-29 11:57 | RAD ---
CPT II Codes: 6100F ULTRASOUND-GUIDED PARACENTESIS. INDICATION: Ascites. ANESTHESIA: In addition to the standard local anesthesia with 1% lidocaine the patient received 50 mcg of fentanyl intravenously. IMAGING FINDINGS AND PROCEDURE NOTE: The benefits of the and risks of procedure explained to the patient. The patient consented of the exam. The patient was brought to the ultrasound suite and multiple images of the peritoneal fluid were obtained. There was a large amount of ascites present throughout the abdomen. The largest pocket of fluid was chosen for the paracentesis which was in the right lower quadrant. A time out was performed before beginning the procedure. The patient was prepped and draped in the usual sterile fashion. The patient?s abdominal wall at the site was anesthetized with 1% lidocaine. A small skin tank was made to admit the paracentesis needle and catheter. Under sonographic control the drainage catheter was advanced into the ascites pocket. An image was saved. Approximately 5 Liters of a yellow tinged fluid was removed. The patient tolerated procedure well without incident. IMPRESSION: UNCOMPLICATED ULTRASOUND-GUIDED PARACENTESIS DESCRIBED ABOVE.
--- NOTE | 2017-03-29 13:50 | PN ---
Progress Note - Progress Note Note: 61 year old male with bifrontal contusions and small right frontal and parafalcine subdural hematoma. He is argumentative this afternoon stating that he is going to leave and is not interested in further treatments. He is pulling at the IV lines and pulse I discussed potential risks of him leaving including worsening of the bleed and contusions, additional falls, altered mental status and . He verbalizes understanding. I discussed the importance of him staying in the hospital for continued monitoring. I also discussed with him other possible alternatives including transfer to the medical floor without continuous telemetry monitoring, less frequent neurological checks and ability to ambulate around the nursing unit. He is not interested in these options. I also discussed with him the benefit of continuing physical therapy for strengthening and improving his gait to prevent future falls. He verbalizes understanding of his decision, potential risks and benefit of him staying in the hospital.
[2017-03-29] MEDS: Furosemide TAB* 20 MG PO SCH (14:57)
--- NOTE | 2017-03-30 11:11 | ED ---
Ban Garay Auryana, scribed for Carlos Wilson MD on 03/26/17 at 1526 . Syncope/Near Syncope - HPI Summary HPI Summary: 61 year old male BIBA s/p syncopal episode. Patient states that he was getting out of the car in the parking lot and turned to look over his left shoulder and then became dizzy and fell backwards. He reports that he remembers falling but does not remember hitting the back of his head or rolling onto his stomach - found by EMS lying face down. Patient also has neck pain and headache but denies any CP, SOB, or N/V. Patient states that he has history of chronic weakness and is currently in PT working with this issue. PMHx is significant for similar syncopal episodes (family reports x10 in past), and ETOH/ polysubstance abuse. - History Of Current Complaint Chief Complaint: EDDizziness Time Seen by Provider: 03/26/17 14:37 Hx Obtained From: Patient Onset/Duration: Sudden Onset, Lasting Minutes, Resolved Timing: Intermittent Episode Lasting Context: Witnessed - in public parking lot of grocery store, Loss Of Consciousness Activity At Onset: Exertion Associated Head Trauma: No Associated Signs And Symptoms: Dizzy, Headache, Other - neck pain Related History: Similar Episode/Dx as - see HPI - Allergies/Home Medications Allergies/Adverse Reactions: Allergies Allergy/AdvReac Type Severity Reaction Status Date / Time Sertraline [From Zoloft] Allergy Mild Rash And Verified 03/27/17 20:27 Itching Lorazepam [From Ativan] AdvReac Mild Hallucinati Verified 03/27/17 20:27 ons BEES Allergy Mild Hives Uncoded 03/27/17 20:27 Home Medications: Home Medications Spironolactone (NF) [Spironolactone 50 MG (NF)] 50 mg PO DAILY 03/26/17 [ History Confirmed 03/26/17] PMH/Surg Hx/FS Hx/Imm Hx Endocrine/Hematology History: Denies: Hx Diabetes - elevated glucose after acute liver failure - diet controlled, Hx Anemia, Hx Unexplained Bleeding Cardiovascular History: Reports: Hx Hypercholesterolemia, Hx Hypertension Denies: Hx Aneurysm, Hx Angina, Hx Angioplasty, Hx Auto Implanted Cardiovert Defib, Hx Cardiac Arrest, Hx Cardiomegaly, Hx Congenital Heart Disease, Hx Congestive Heart Failure, Hx Coronary Artery Disease, Hx Deep Vein Thrombosis, Hx Embolism, Hx Hypotension, Hx Pacemaker/ICD, Hx Peripheral Vascular Disease, Hx Rheumatic Fever, Hx Syncope, Hx Valvular Heart Disease, Other Cardiovascular Problems/Disorders Respiratory History: Reports: Hx Asthma, Hx Seasonal Allergies - hay fever Denies: Hx Chronic Bronchitis, Hx Chronic Obstructive Pulmonary Disease (COPD ), Hx Cystic Fibrosis, Hx Lung Cancer, Hx Pleural Effusion, Hx Pneumonia, Hx Pulmonary Edema, Hx Pulmonary Embolism, Hx Sleep Apnea, Other Respiratory Problems/Disorders GI History: Reports: Hx Cirrhosis, Hx Gall Bladder Disease, Hx Ulcer Denies: Hx Crohn's Disease, Hx Diverticulosis, Hx Gastroesophageal Reflux Disease, Hx Gastrointestinal Bleed, Hx Hiatal Hernia, Hx Irritable Bowel, Hx Jaundice, Hx Obstructive Bowel, Hx Ileostomy, Hx Pyloric Stenosis, Other GI Disorders History: Denies: Hx Dialysis, Hx Renal Disease Musculoskeletal History: Reports: Hx Arthritis - both knees, Hx Orthopedic Injury Denies: Hx Back Problems, Hx Bursitis, Hx Congenital Bone Abnormalities, Hx Fibromyalgia, Hx Gout, Hx Osteoporosis, Hx Scoliosis, Hx Tendonitis, Other Musculoskeletal History Sensory History: Reports: Hx Contacts or Glasses Denies: Hx Cataracts, Hx Eye Injury, Hx Eye Prosthesis, Hx Glaucoma, Hx Legally Blind, Hx Macular Degeneration, Hx Vision Problem, Hx Deafness, Hx Hearing Aid, Hx Hearing Problem, Other Sensory Impairments Opthamlomology History: Reports: Hx Contacts or Glasses Denies: Hx Cataracts, Hx Eye Injury, Hx Eye Prosthesis, Hx Glaucoma, Hx Legally Blind, Hx Macular Degeneration, Hx Vision Problem, Other Sensory Impairments Neurological History: Reports: Hx Seizures Denies: Hx Dementia Psychiatric History: Reports: Hx Depression, Hx Substance Abuse Denies: Hx Anxiety, Hx Attention Deficit Hyperactivity Disorder, Hx Eating Disorder, Hx Panic Disorder, Hx Post Traumatic Stress Disorder, Hx Inpatient Treatment, Hx Community Mental Health Tx, Hx Schizophrenia, Hx Bipolar Disorder , Hx Suicide Attempt, Hx of Violent Episodes Against Others, Other Psychiatric Issues/Disorders - Surgical History Surgery Procedure, Year, and Place: RIGHT ANKLE ORIF. LEFT KNEE TENDON REPAIR. CHOLECYSECTOMY. APPENDECTOMY. TONSILECTOMY Hx Anesthesia Reactions: No Infectious Disease History: Denies: Hx Clostridium Difficile, Hx Hepatitis, Hx Human Immunodeficiency Virus (HIV), Hx of Known/Suspected MRSA, Hx Shingles, Hx Tuberculosis, History Other Infectious Disease, Traveled Outside the [place] in Last 30 Days - Family History Known Family History: Negative: Cardiac Disease, Diabetes - Social History Occupation: Disabled Alcohol Use: None Alcohol Amount: beer Hx Substance Use: No Substance Use Type: Reports: None Hx Tobacco Use: Yes Smoking Status (MU): Former Smoker Type: Cigarettes Length of Time of Smoking/Using Tobacco: 5 years Have You Smoked in the Last Year: No Review of Systems Positive: Other - dizziness. Negative: Fever Eyes: Negative ENT: Negative Cardiovascular: Negative Negative: Chest Pain Respiratory: Negative Negative: Shortness Of Breath Gastrointestinal: Negative Negative: Vomiting, Nausea Genitourinary: Negative Positive: Arthralgia - neck pain Skin: Negative Positive: Headache, Syncope Psychological: Normal All Other Systems Reviewed And Are Negative: Yes Physical Exam - Summary Physical Exam Summary: VITAL SIGNS: Reviewed. GENERAL: ~Patient is a well-developed and nourished MALE who is lying comfortable in the stretcher. ~Patient is not in any acute respiratory distress. HEAD AND FACE: swelling in the occipital area but otherwise no signs of trauma. ~No ecchymosis, hematomas or skull depressions. No sinus tenderness. EYES: PERRLA, EOMI x 2, No injected conjunctiva, no nystagmus. No photophobia. EARS: Hearing grossly intact. Ear canals and tympanic membranes are within normal limits. MOUTH: Oropharynx within normal limits. NECK: Supple, trachea is midline, no adenopathy, no JVD, no carotid bruit, no c- spine tenderness, neck with full ROM. No meningeal signs, no Kernig's or brudzinskis signs. CHEST: Symmetric, no tenderness at palpation LUNGS: Clear to auscultation bilaterally. No wheezing or crackles. CVS: Regular rate and rhythm, S1 and S2 present, no murmurs or gallops appreciated. ABDOMEN: Soft, non-tender. No signs of distention. No rebound no guarding, and no masses palpated. Bowel sounds are normal. EXTREMITIES: FROM in all major joints, bilateral LE edema +1, no cyanosis or clubbing. NEURO: Alert and oriented x 3. No acute neurological deficits. Speech is normal and follows commands. SKIN: Dry and warm Triage Information Reviewed: Yes Vital Signs On Initial Exam: Initial Vitals Temp Pulse Resp BP Pulse Ox 98.9 F 58 16 127/61 99 03/26/17 14:15 03/26/17 14:15 03/26/17 14:15 03/26/17 14:15 03/26/17 14:15 Vital Signs Reviewed: Yes Diagnostics - Vital Signs Vital Signs Temp Pulse Resp BP Pulse Ox 03/26/17 16:00 61 12 97 03/26/17 15:42 60 15 94 03/26/17 14:15 98.9 F 58 16 127/61 99 - Laboratory Lab Results: Lab Results 03/26/17 03/26/17 03/26/17 Range/Units 15:59 15:59 15:59 WBC 4.6 (3.5-10.8) 10^3/ul RBC 2.59 L (4.0-5.4) 10^6/ul Hgb 8.3 L (14.0-18.0) g/dl Hct 26 L (42-52) % MCV 101 H (80-94) fL MCH 32 H (27-31) pg MCHC 32 (31-36) g/dl RDW 20 H (10.5-15) % Plt Count 111 L (150-450) 10^3/ul MPV 8 (7.4-10.4) um3 Neut % (Auto) 52.9 (38-83) % Lymph % (Auto) 26.0 (25-47) % [place] % (Auto) 14.5 H (1-9) % Eos % (Auto) 5.4 (0-6) % Baso % (Auto) 1.2 (0-2) % Absolute Neuts (auto) 2.4 (1.5-7.7) 10^3/ul Absolute Lymphs (auto) 1.2 (1.0-4.8) 10^3/ul Absolute Monos (auto) 0.7 (0-0.8) 10^3/ul Absolute Eos (auto) 0.2 (0-0.6) 10^3/ul Absolute Basos (auto) 0.1 (0-0.2) 10^3/ul Absolute Nucleated RBC 0.01 10^3/ul Nucleated RBC % 0.2 INR (Anticoag Therapy) (0.89-1.11) Sodium 133 (133-145) mmol/L Potassium 5.3 H (3.5-5.0) mmol/L Chloride 102 (101-111) mmol/L Carbon Dioxide 25 (22-32) mmol/L Anion Gap 6 (2-11) mmol/L BUN 9 (6-24) mg/dL Creatinine 1.05 (0.67-1.17) mg/dL Est GFR ( Amer) 93.0 (>60) Est GFR (Non-Af Amer) 72.3 (>60) BUN/Creatinine Ratio 8.6 (8-20) Glucose 127 H (70-100) mg/dL Lactic Acid 2.5 H* (0.5-2.0) mmol/L Calcium 8.5 L (8.6-10.3) mg/dL Total Bilirubin 2.20 H (0.2-1.0) mg/dL AST 70 H (13-39) U/L ALT 20 (7-52) U/L Alkaline Phosphatase 186 H (34-104) U/L Ammonia (16-53) mol/L Total Protein 6.2 L (6.4-8.9) g/dL Albumin 3.0 L (3.2-5.2) g/dL Globulin 3.2 (2-4) g/dL Albumin/Globulin Ratio 0.9 L (1-3) Phenytoin 25.6 H (10-20) mcg/mL Serum Alcohol < 10 (<10) mg/dL 03/26/17 03/26/17 Range/Units 15:59 15:59 WBC (3.5-10.8) 10^3/ul RBC (4.0-5.4) 10^6/ul Hgb (14.0-18.0) g/dl Hct (42-52) % MCV (80-94) fL MCH (27-31) pg MCHC (31-36) g/dl RDW (10.5-15) % Plt Count (150-450) 10^3/ul MPV (7.4-10.4) um3 Neut % (Auto) (38-83) % Lymph % (Auto) (25-47) % [place] % (Auto) (1-9) % Eos % (Auto) (0-6) % Baso % (Auto) (0-2) % Absolute Neuts (auto) (1.5-7.7) 10^3/ul Absolute Lymphs (auto) (1.0-4.8) 10^3/ul Absolute Monos (auto) (0-0.8) 10^3/ul Absolute Eos (auto) (0-0.6) 10^3/ul Absolute Basos (auto) (0-0.2) 10^3/ul Absolute Nucleated RBC 10^3/ul Nucleated RBC % INR (Anticoag Therapy) 1.38 H (0.89-1.11) Sodium (133-145) mmol/L Potassium (3.5-5.0) mmol/L Chloride (101-111) mmol/L Carbon Dioxide (22-32) mmol/L Anion Gap (2-11) mmol/L BUN (6-24) mg/dL Creatinine (0.67-1.17) mg/dL Est GFR ( Amer) (>60) Est GFR (Non-Af Amer) (>60) BUN/Creatinine Ratio (8-20) Glucose (70-100) mg/dL Lactic Acid (0.5-2.0) mmol/L Calcium (8.6-10.3) mg/dL Total Bilirubin (0.2-1.0) mg/dL AST (13-39) U/L ALT (7-52) U/L Alkaline Phosphatase (34-104) U/L Ammonia 80 H (16-53) mol/L Total Protein (6.4-8.9) g/dL Albumin (3.2-5.2) g/dL Globulin (2-4) g/dL Albumin/Globulin Ratio (1-3) Phenytoin (10-20) mcg/mL Serum Alcohol (<10) mg/dL Result Diagrams: 03/29/17 05:05 03/29/17 05:05 Lab Statement: Any lab studies that have been ordered have been reviewed, and results considered in the medical decision making process. - Radiology CXR Xray Interpretation: No Acute Changes Radiology Interpretation Completed By: Radiologist - CT BRAIN CT Interpretation: Positive (See Comments) - IMPRESSION: Bilateral subdural hematoma in the frontal areas bilaterally. The left subdural may be chronic in nature. There may be intraparenchymal hemorrhage in the frontal lobes bilaterally with subarachnoid hemorrhage. Left parietal scalp hematoma is noted. IMPRESSION: Bilateral subdural hematoma in the frontal areas bilaterally. The left subdural may be chronic in nature. There may be intraparenchymal hemorrhage in the frontal lobes bilaterally with subarachnoid hemorrhage. Left parietal scalp hematoma is noted. Dr. Wilson was notified of the results at [address] Interpretation Completed By: Radiologist CERVICAL SPINE CT Interpretation: Positive (See Comments) - IMPRESSION: Degenerative disc disease at C5-C6 and C6-C7 without evidence of fracture. CT Interpretation Completed By: Radiologist Course/Dx Assessment/Plan: 61 year old male BIBA s/p syncopal episode. Patient states that he was getting out of the car in the parking lot and turned to look over his left shoulder and then became dizzy and fell backwards. He reports that he remembers falling but does not remember hitting the back of his head or rolling onto his stomach - found by EMS lying face down. Patient also has neck pain and headache but denies any CP, SOB, or N/V. Patient states that he has history of chronic weakness and is currently in PT working with this issue. PMHx is significant for similar syncopal episodes (family reports x10 in past), and ETOH /polysubstance abuse. Test results WNL except chronic anemia, potassium 5.3, glucose 127, lactic 2.5, calcium 8.5, ammonia 80, ETOH serum <10. Cervical spine CT IMPRESSION: Degenerative disc disease at C5-C6 and C6-C7 without evidence of fracture. Brain CT - IMPRESSION: Bilateral subdural hematoma in the frontal areas bilaterally. The left subdural may be chronic in nature. There may be intraparenchymal hemorrhage in the frontal lobes bilaterally with subarachnoid hemorrhage. Left parietal scalp hematoma is noted. IMPRESSION: Bilateral subdural hematoma in the frontal areas bilaterally. The left subdural may be chronic in nature. There may be intraparenchymal hemorrhage in the frontal lobes bilaterally with subarachnoid hemorrhage. Left parietal scalp hematoma is noted. Dr. Wilson was notified of the results at 1518 hours. CXR NAD. At this time, I discussed the patient with Dr. Denney. Dr. Denney states that the patient will be seen by his PA. His PA came to the ED to see the patient and stated that she will admit the patient to her services with consult from the medical team here. At this point, the patient is hemodynamically stable and A&O x3. GCS is still 15 on decision to [place] [facility] [place] - Diagnoses Differential Diagnosis/HQI/PQRI: Positive: Cerebral Vascular Accident, Transient Ischemic Attack, Vasovagal Episode Provider Diagnoses: acute hemorrhagic CVA - Physician Notifications Discussed Care of Patient With: Chris Denney Time Discussed With Above Provider: 15:40 - will see patient in ED and agrees to admit Instructed by Provider To: Admit As Inpatient - Critical Care Time Critical Care Time: 30-74 min Discharge - Discharge Plan Condition: Stable Disposition: ADMITTED TO [facility] The documentation as recorded by the Ban segundo Auryana accurately reflects the service I personally performed and the decisions made by Steve leigh Walter, MD.
== END 2017-03-29 14:45 | disposition left against medical advice (07) | DRG 55 ==
LOC: ED 13:43 → ICU 17:00
PROVIDERS: ADMIT Neurological Surgery; ATTEND Neurological Surgery
PROC: 0W9G3ZZ Drainage of Peritoneal Cavity, Percutaneous Approach (ICD-10-PCS; principal; 2017-03-29)
DX: S06.5X1A Traumatic subdural hemorrhage with loss of consciousness of 30 minutes or less, initial encounter (principal); K74.60 Unspecified cirrhosis of liver; I10 Essential (primary) hypertension; W18.30XA Fall on same level, unspecified, initial encounter; G40.909 Epilepsy, unspecified, not intractable, without status epilepticus; F10.10 Alcohol abuse, uncomplicated; J45.909 Unspecified asthma, uncomplicated; F32.9 Major depressive disorder, single episode, unspecified; R29.6 Repeated falls; R53.1 Weakness; E78.00 Pure hypercholesterolemia, unspecified; M17.0 Bilateral primary osteoarthritis of knee; R26.81 Unsteadiness on feet; R45.1 Restlessness and agitation; Z53.21 Procedure and treatment not carried out due to patient leaving prior to being seen by health care provider; Y92.481 Parking lot as the place of occurrence of the external cause; Z90.49 Acquired absence of other specified parts of digestive tract; Z87.891 Personal history of nicotine dependence; Z88.8 Allergy status to other drugs, medicaments and biological substances; Z91.030 Bee allergy status; Z82.3 Family history of stroke
CPT/HCPCS: 36415; 49083; 70450; 71010; 72125; 80048; 80053; 80185; 80320; 82140; 83605; 85025; 85610; 87641; A9270-GY; G0480; J2405; J3010

== ENCOUNTER 2017-04-28 12:05 | Emergency (ER) | payer BC, OTHER ==
--- NOTE | 2017-04-28 13:00 | RAD ---
INDICATION: Head injury. COMPARISON: Comparison is made with prior CTs of the brain from March 26, 2017 and March 28, 2017. TECHNIQUE: Contiguous axial sections of the brain were obtained from the skull base to the vertex without contrast. FINDINGS: The ventricles, cisterns and sulci are enlarged consistent with diffuse atrophy. There are focal areas of decreased attenuation present in the inferior portion of both frontal lobes in the region of prior hemorrhage most consistent with areas of encephalomalacia. No other focal abnormality or mass effect is seen. There is no evidence for hemorrhage. No fracture is seen. The visualized portion of the paranasal sinuses appear clear. There is small area of increased density in the inferior portion of the left mastoid air cells which is unchanged from the prior study. IMPRESSION: INTERVAL RESOLUTION OF THE PREVIOUSLY NOTED FRONTAL LOBE PARENCHYMAL HEMORRHAGE. THERE IS NO EVIDENCE FOR ACUTE INTRACRANIAL ABNORMALITY.
--- NOTE | 2017-04-28 13:10 | RAD ---
INDICATION: Trauma. COMPARISON: Comparison is made with a prior CT of the cervical spine from March 26, 2017. TECHNIQUE: Contiguous axial sections were obtained from the skull base through the T3 vertebra. Images were reconstructed in the sagittal and coronal planes. FINDINGS: There is straightening of the cervical spine with loss of the normal cervical lordosis. No prevertebral soft tissue swelling or fracture is seen. At the C3-C4 level there is mild posterior uncinate process spurring. No significant spinal canal narrowing is present. There is mild bilateral neural foraminal narrowing. At the C4-C5 level there is mild posterior uncinate process spurring and mild hypertrophic changes within the facet joints. No significant spinal canal narrowing is present. There is moderate neural foraminal narrowing on the right side. At the C5-C6 level there is [id number] posterior uncinate process spurring and mild hypertrophic changes within the facet joints. There is mild spinal canal narrowing and moderate bilateral neural foraminal narrowing. At C6-C7 level there is moderate posterior uncinate process spurring and mild hypertrophic changes within the left facet joint. There is mild spinal canal narrowing and mild neural foraminal narrowing on the right side and moderate to severe neural foraminal narrowing on the left side. There is a small effusion within the left mastoid air cells which appears unchanged. IMPRESSION: 1. STRAIGHTENING OF THE CERVICAL SPINE, NO EVIDENCE FOR FRACTURE. 2. MODERATE CERVICAL SPONDYLOSIS. 3. SMALL EFFUSION WITHIN THE LEFT MASTOID AIR CELLS, UNCHANGED.
[2017-04-28 15:26] VITALS: BP 102/47
--- NOTE | 2017-04-30 10:23 | ED ---
Ban Garay Auryana, scribed for Carlos Wilson MD on 04/28/17 at 1229 . Head Injury - HPI Summary HPI Summary: 61 year old male presents to the ED s/p fall last night. Patient reports that he turned his head to the left and fell, hitting his head on the hard wood floor. He also reports WILSON, posterior head laceration, and nausea. He denies any LOC. Last tetanus - UTD. Patient reports that he fell 3 week ago, left AMA even though he was diagnosed subdural hematoma. PMHx is significant for stroke - with induced coma and is currently in rehabilitation. - History Of Current Complaint Chief Complaint: EDHeadInjury Stated Complaint: FALL , HEAD INJURY Time Seen by Provider: 04/28/17 12:22 Hx Obtained From: Patient, Family/Note Taker Mechanism Of Injury: Fall From A Standing Position Onset/Duration: Started Hours Ago - at 02:00, Still Present Onset of Pain: Immediate Severity Currently: Mild Severity Initially: Mild Pain Intensity: 4 Pain Scale Used: 0-10 Numeric Location of Head Injury: Other: - occiput Location: Discrete At: - at the site of injury Associated Signs And Symptoms: Nausea, Headache, Other: - posterior head laceration Related History: Similar Episode/Dx as - yes see HPI - Allergies/Home Medications Allergies/Adverse Reactions: Allergies Allergy/AdvReac Type Severity Reaction Status Date / Time Sertraline [From Zoloft] Allergy Mild Rash And Verified 03/27/17 20:27 Itching Lorazepam [From Ativan] AdvReac Mild Hallucinati Verified 03/27/17 20:27 ons BEES Allergy Mild Hives Uncoded 03/27/17 20:27 PMH/Surg Hx/FS Hx/Imm Hx Endocrine/Hematology History: Denies: Hx Diabetes - elevated glucose after acute liver failure - diet controlled, Hx Anemia, Hx Unexplained Bleeding Cardiovascular History: Reports: Hx Hypercholesterolemia, Hx Hypertension Denies: Hx Aneurysm, Hx Angina, Hx Angioplasty, Hx Auto Implanted Cardiovert Defib, Hx Cardiac Arrest, Hx Cardiomegaly, Hx Congenital Heart Disease, Hx Congestive Heart Failure, Hx Coronary Artery Disease, Hx Deep Vein Thrombosis, Hx Embolism, Hx Hypotension, Hx Pacemaker/ICD, Hx Peripheral Vascular Disease, Hx Rheumatic Fever, Hx Syncope, Hx Valvular Heart Disease, Other Cardiovascular Problems/Disorders Respiratory History: Reports: Hx Asthma, Hx Seasonal Allergies - hay fever Denies: Hx Chronic Bronchitis, Hx Chronic Obstructive Pulmonary Disease (COPD ), Hx Cystic Fibrosis, Hx Lung Cancer, Hx Pleural Effusion, Hx Pneumonia, Hx Pulmonary Edema, Hx Pulmonary Embolism, Hx Sleep Apnea, Other Respiratory Problems/Disorders GI History: Reports: Hx Cirrhosis, Hx Gall Bladder Disease, Hx Ulcer Denies: Hx Crohn's Disease, Hx Diverticulosis, Hx Gastroesophageal Reflux Disease, Hx Gastrointestinal Bleed, Hx Hiatal Hernia, Hx Irritable Bowel, Hx Jaundice, Hx Obstructive Bowel, Hx Ileostomy, Hx Pyloric Stenosis, Other GI Disorders History: Denies: Hx Dialysis, Hx Renal Disease Musculoskeletal History: Reports: Hx Arthritis - both knees, Hx Orthopedic Injury Denies: Hx Back Problems, Hx Bursitis, Hx Congenital Bone Abnormalities, Hx Fibromyalgia, Hx Gout, Hx Osteoporosis, Hx Scoliosis, Hx Tendonitis, Other Musculoskeletal History Sensory History: Reports: Hx Contacts or Glasses Denies: Hx Cataracts, Hx Eye Injury, Hx Eye Prosthesis, Hx Glaucoma, Hx Legally Blind, Hx Macular Degeneration, Hx Vision Problem, Hx Deafness, Hx Hearing Aid, Hx Hearing Problem, Other Sensory Impairments Opthamlomology History: Reports: Hx Contacts or Glasses Denies: Hx Cataracts, Hx Eye Injury, Hx Eye Prosthesis, Hx Glaucoma, Hx Legally Blind, Hx Macular Degeneration, Hx Vision Problem, Other Sensory Impairments Neurological History: Reports: Hx Headaches, Hx Seizures Denies: Hx Dementia Psychiatric History: Reports: Hx Depression, Hx Substance Abuse Denies: Hx Anxiety, Hx Attention Deficit Hyperactivity Disorder, Hx Eating Disorder, Hx Panic Disorder, Hx Post Traumatic Stress Disorder, Hx Inpatient Treatment, Hx Community Mental Health Tx, Hx Schizophrenia, Hx Bipolar Disorder , Hx Suicide Attempt, Hx of Violent Episodes Against Others, Other Psychiatric Issues/Disorders - Surgical History Surgery Procedure, Year, and Place: RIGHT ANKLE ORIF. LEFT KNEE TENDON REPAIR. CHOLECYSECTOMY. APPENDECTOMY. TONSILECTOMY Hx Anesthesia Reactions: No Infectious Disease History: Denies: Hx Clostridium Difficile, Hx Hepatitis, Hx Human Immunodeficiency Virus (HIV), Hx of Known/Suspected MRSA, Hx Shingles, Hx Tuberculosis, History Other Infectious Disease, Traveled Outside the [place] in Last 30 Days - Family History Known Family History: Negative: Cardiac Disease, Diabetes - Social History Alcohol Use: None Alcohol Amount: beer Hx Substance Use: No Substance Use Type: Reports: None Hx Tobacco Use: Yes Smoking Status (MU): Former Smoker Type: Cigarettes Length of Time of Smoking/Using Tobacco: 5 years Have You Smoked in the Last Year: No Review of Systems Constitutional: Negative Negative: Fever Eyes: Negative ENT: Negative Cardiovascular: Negative Respiratory: Negative Positive: Nausea Genitourinary: Negative Musculoskeletal: Negative Positive: Other - posterior head laceration Positive: Headache. Negative: Syncope Psychological: Normal All Other Systems Reviewed And Are Negative: Yes Physical Exam - Summary Physical Exam Summary: VITAL SIGNS: Reviewed. GENERAL: ~Patient is a well-developed and nourished male who is lying comfortable in the stretcher. ~Patient is not in any acute respiratory distress. HEAD AND FACE: Dried blood at the back of the skull - unable to see laceration - will clean to visualize. No ecchymosis, hematomas or skull depressions. No sinus tenderness. No raccoon eyes. No smith signs. EYES: PERRLA, EOMI x 2, No injected conjunctiva, no nystagmus. No photophobia. EARS: Hearing grossly intact. Ear canals and tympanic membranes are within normal limits. MOUTH: Oropharynx within normal limits. NECK: Supple, trachea is midline, no adenopathy, no JVD, no carotid bruit, no c- spine tenderness, neck with full ROM. No meningeal signs, no Kernig's or brudzinskis signs. CHEST: Symmetric, no tenderness at palpation LUNGS: Clear to auscultation bilaterally. No wheezing or crackles. CVS: Regular rate and rhythm, S1 and S2 present, no murmurs or gallops appreciated. ABDOMEN: Soft, non-tender. No signs of distention. No rebound no guarding, and no masses palpated. Bowel sounds are normal. EXTREMITIES: FROM in all major joints, no edema, no cyanosis or clubbing. NEURO: Alert and oriented x 3. No acute neurological deficits. Speech is normal and follows commands. SKIN: Dry and warm Triage Information Reviewed: Yes Vital Signs On Initial Exam: Initial Vitals Temp Pulse Resp BP Pulse Ox 98.4 F 66 17 120/53 98 04/28/17 12:06 04/28/17 12:06 04/28/17 12:06 04/28/17 12:06 04/28/17 12:06 Vital Signs Reviewed: Yes Procedures - Laceration/Wound Repair #1 Location: head - posterior head - occiput Description: Linear Length, Depth and Shape: .5 cm Laceration/Wound Explored: clean - prior Closure: Ariel #__ - 2 Diagnostics - Vital Signs Vital Signs Temp Pulse Resp BP Pulse Ox 04/28/17 12:06 98.4 F 66 17 120/53 98 - Laboratory Lab Statement: Any lab studies that have been ordered have been reviewed, and results considered in the medical decision making process. - CT cervical spine CT Interpretation: Positive (See Comments) - IMPRESSION: 1. STRAIGHTENING OF THE CERVICAL SPINE, NO EVIDENCE FOR FRACTURE. 2. MODERATE CERVICAL SPONDYLOSIS. 3. SMALL EFFUSION WITHIN THE LEFT MASTOID AIR CELLS, UNCHANGED. CT Interpretation Completed By: Radiologist BRAIN CT Interpretation: Positive (See Comments) - IMPRESSION: INTERVAL RESOLUTION OF THE PREVIOUSLY NOTED FRONTAL LOBE PARENCHYMAL HEMORRHAGE. THERE IS NO EVIDENCE FOR ACUTE INTRACRANIAL ABNORMALITY. CT Interpretation Completed By: Radiologist Re-Evaluation - Re-Evaluation First Eval Re-Evaluation Time: 14:56 Change: Improved Comment: laceration repair - staple placement - patient denied any local anesthetic Head Injury Course/Dx Assessment/Plan: 61 year old male presents to the ED s/p fall last night. Patient reports that he turned his head to the left and fell, hitting his head on the hard wood floor. He also reports WILSON, posterior head laceration, and nausea. He denies any LOC. Last tetanus - UTD. Patient reports that he fell 3 week ago, left AMA even though he was diagnosed subdural hematoma. PMHx is significant for stroke - with induced coma and is currently in rehabilitation. Cervical Spine CT show 1. STRAIGHTENING OF THE CERVICAL SPINE, NO EVIDENCE FOR FRACTURE. 2. MODERATE CERVICAL SPONDYLOSIS. 3. SMALL EFFUSION WITHIN THE LEFT MASTOID AIR CELLS, UNCHANGED. Brain CT shows INTERVAL RESOLUTION OF THE PREVIOUSLY NOTED FRONTAL LOBE PARENCHYMAL HEMORRHAGE. THERE IS NO EVIDENCE FOR ACUTE INTRACRANIAL ABNORMALITY. In ED course, patient has remained stable and does not have any complaints. He is eating and drinking without any nausea or vomiting. Patient is walking to the bathroom with a good steady walk. Therefore , the patient with be discharged home with follow up to PCP. - Diagnoses Differential Diagnosis/HQI/PQRI: Cerebral Contusion, Concussion Without LOC, Contusion, Hematoma, Intracranial Bleed Provider Diagnoses: Head contusion, Laceration Discharge - Discharge Plan Condition: Stable Disposition: HOME Patient Education Materials: Contusion in Adults (ED), Head Injury (ED) Referrals: Rosie Noriega MD [Primary Care Provider] - 2 Days The documentation as recorded by the Ban segundo Auryana accurately reflects the service I personally performed and the decisions made by Steve leigh Walter, MD.
== END 2017-04-28 15:31 | disposition home or self-care (01) ==
LOC: ED 12:05
DX: S01.91XA Laceration without foreign body of unspecified part of head, initial encounter (principal); R11.0 Nausea; R51 Headache; Z87.891 Personal history of nicotine dependence; W19.XXXA Unspecified fall, initial encounter; Y93.9 Activity, unspecified; Y92.9 Unspecified place or not applicable
CPT/HCPCS: 12011; 70450; 72125; 99282

== ENCOUNTER 2017-06-13 15:22 | Inpatient (IN) | payer BC, OTHER ==
[2017-06-13] MEDS ORDERED: NS 0.9% 1000 ML* 2,000 ML IV ONE (16:43)
[2017-06-13 17:09] LABS: Hematocrit 28 % (42-52); Mean Corpuscular HGB Conc 32 g/dl (31-36); Mean Corpuscular Hemoglobin 31 pg (27-31); Mean Corpuscular Volume 99 fL (80-94); Mean Platelet Volume 7 um3 (7.4-10.4); Red Blood Count 2.88 10^6/ul (4.0-5.4); Red Cell Distribution Width 25 % (10.5-15); White Blood Count 5.3 10^3/ul (3.5-10.8)
[2017-06-13 17:11] LABS: Add Diff/Slide Review? Slide Review Added; Comments Flag Yes
[2017-06-13 17:12] LABS: Albumin 3.1 g/dL (3.2-5.2); BUN/Creatinine Ratio 6.1 (8-20); C Reactive Protein 34.95 mg/L (< 5.00); Calcium 8.6 mg/dL (8.6-10.3); EGFR African American 158.3 (>60); EGFR Non-African American 123.1 (>60); Globulin 4.4 g/dL (2-4); Magnesium 1.7 mg/dL (1.9-2.7); Potassium 3.6 mmol/L (3.5-5.0); Total Bilirubin 2.4 mg/dL (0.2-1.0); Total Protein 7.5 g/dL (6.4-8.9)
[2017-06-13 17:13] LABS: Ammonia 35 mol/L (16-53)
[2017-06-13 17:16] LABS: B Type Natriuretic Peptide 288 pg/mL
--- NOTE | 2017-06-13 17:31 | RAD ---
INDICATION: Weakness. Cough, pneumonia, CHF, ascites. COMPARISON: March 26, 2017 TECHNIQUE: Dual energy PA and routine lateral views of the chest were obtained. REPORT: LEFT lower lobe basilar airspace consolidation without volume loss consistent with pneumonia. Probable small LEFT pleural effusion. Negative for pneumothorax. The heart, pulmonary vasculature, and mediastinal contours are unremarkable. IMPRESSION: LEFT basilar pneumonia with probable small associated pleural effusion.
[2017-06-13] MEDS ORDERED: Iohexol 300* (CONTRAST) 10 ML SDV IV ONE (18:05)
[2017-06-13] MEDS ORDERED: Levofloxacin 750 MG IVPREMIX(* 750 MG/150 ML BAG IVPB ONE (18:37)
--- NOTE | 2017-06-13 19:06 | ED ---
Marcus Garay Angela, scribed for Piotr Yañez MD on 06/13/17 at 1635 . Dizziness - HPI Summary HPI Summary: This pt is a 62 y/o male presenting to [facility] c/o dizziness since yesterday. Additionally pt reports diarrhea x3 days, 8 episodes of diarrhea, and today 4-5 episodes. He states he is not steady on his feet and feels weak. Pt describes a hernia on his umbilicus for a couple of months, that he plans to get drained. Per sister, since two days ago the hernia has opened up. Pt reports abd distension and intermittent LE swelling (pt is on diuretics for this). Pt denies bloody stools, abd pain, vomiting, fever, headache. He is not anticoagulated. Pt is a former smoker (quit 35 years ago). PMHx of liver disease and psoriasis. - History Of Current Complaint Chief Complaint: EDDizziness Stated Complaint: DIARREAH/DIZZY/WEAKNESS Time Seen by Provider: 06/13/17 16:16 Hx Obtained From: Patient Onset/Duration: Still Present Timing: Days Aggravating Factor(s): Nothing Alleviating Factor(s): Nothing Associated Signs And Symptoms: Positive: Diarrhea. Negative: Nausea, Vomiting, Chest Pain, Fever, Chills - Allergies/Home Medications Allergies/Adverse Reactions: Allergies Allergy/AdvReac Type Severity Reaction Status Date / Time Sertraline [From Zoloft] Allergy Mild Rash And Verified 05/29/17 12:21 Itching Lorazepam [From Ativan] AdvReac Mild Hallucinati Verified 05/29/17 12:21 ons BEES Allergy Mild Hives Uncoded 05/29/17 12:21 PMH/Surg Hx/FS Hx/Imm Hx Endocrine/Hematology History: Denies: Hx Anticoagulant Therapy, Hx Diabetes - elevated glucose after acute liver failure - diet controlled, Hx Anemia, Hx Unexplained Bleeding Cardiovascular History: Reports: Hx Hypercholesterolemia, Hx Hypertension Denies: Hx Aneurysm, Hx Angina, Hx Angioplasty, Hx Auto Implanted Cardiovert Defib, Hx Cardiac Arrest, Hx Cardiomegaly, Hx Congenital Heart Disease, Hx Congestive Heart Failure, Hx Coronary Artery Disease, Hx Deep Vein Thrombosis, Hx Embolism, Hx Hypotension, Hx Pacemaker/ICD, Hx Peripheral Vascular Disease, Hx Rheumatic Fever, Hx Syncope, Hx Valvular Heart Disease, Other Cardiovascular Problems/Disorders Respiratory History: Reports: Hx Asthma, Hx Seasonal Allergies - hay fever Denies: Hx Chronic Bronchitis, Hx Chronic Obstructive Pulmonary Disease (COPD ), Hx Cystic Fibrosis, Hx Lung Cancer, Hx Pleural Effusion, Hx Pneumonia, Hx Pulmonary Edema, Hx Pulmonary Embolism, Hx Sleep Apnea, Other Respiratory Problems/Disorders GI History: Reports: Hx Cirrhosis, Hx Gall Bladder Disease, Hx Ulcer Denies: Hx Crohn's Disease, Hx Diverticulosis, Hx Gastroesophageal Reflux Disease, Hx Gastrointestinal Bleed, Hx Hiatal Hernia, Hx Irritable Bowel, Hx Jaundice, Hx Obstructive Bowel, Hx Ileostomy, Hx Pyloric Stenosis, Other GI Disorders History: Denies: Hx Dialysis, Hx Renal Disease Musculoskeletal History: Reports: Hx Arthritis - both knees, Hx Orthopedic Injury Denies: Hx Back Problems, Hx Bursitis, Hx Congenital Bone Abnormalities, Hx Fibromyalgia, Hx Gout, Hx Osteoporosis, Hx Scoliosis, Hx Tendonitis, Other Musculoskeletal History Sensory History: Reports: Hx Contacts or Glasses Denies: Hx Cataracts, Hx Eye Injury, Hx Eye Prosthesis, Hx Glaucoma, Hx Legally Blind, Hx Macular Degeneration, Hx Vision Problem, Hx Deafness, Hx Hearing Aid, Hx Hearing Problem, Other Sensory Impairments Opthamlomology History: Reports: Hx Contacts or Glasses Denies: Hx Cataracts, Hx Eye Injury, Hx Eye Prosthesis, Hx Glaucoma, Hx Legally Blind, Hx Macular Degeneration, Hx Vision Problem, Other Sensory Impairments Neurological History: Reports: Hx Headaches, Hx Seizures Denies: Hx Dementia Psychiatric History: Reports: Hx Depression, Hx Substance Abuse Denies: Hx Anxiety, Hx Attention Deficit Hyperactivity Disorder, Hx Eating Disorder, Hx Panic Disorder, Hx Post Traumatic Stress Disorder, Hx Inpatient Treatment, Hx Community Mental Health Tx, Hx Schizophrenia, Hx Bipolar Disorder , Hx Suicide Attempt, Hx of Violent Episodes Against Others, Other Psychiatric Issues/Disorders - Surgical History Surgery Procedure, Year, and Place: RIGHT ANKLE ORIF. LEFT KNEE TENDON REPAIR. CHOLECYSECTOMY. APPENDECTOMY. TONSILECTOMY Hx Anesthesia Reactions: No Infectious Disease History: No Infectious Disease History: Denies: Hx Clostridium Difficile, Hx Hepatitis, Hx Human Immunodeficiency Virus (HIV), Hx of Known/Suspected MRSA, Hx Shingles, Hx Tuberculosis, History Other Infectious Disease, Traveled Outside the [place] in Last 30 Days - Family History Known Family History: Negative: Cardiac Disease, Diabetes - Social History Alcohol Use: Weekly Alcohol Amount: 2-3 beers/week Hx Substance Use: No Substance Use Type: Reports: None Hx Tobacco Use: Yes Smoking Status (MU): Former Smoker Type: Cigarettes Length of Time of Smoking/Using Tobacco: 5 years Have You Smoked in the Last Year: No Review of Systems Negative: Fever, Chills Eyes: Negative ENT: Negative Negative: Chest Pain Negative: Shortness Of Breath Gastrointestinal: Other - abd distension Positive: Diarrhea. Negative: Abdominal Pain, Other - bloody stools Positive: Edema - lower extremities Neurological: Other - dizziness Negative: Headache Psychological: Normal All Other Systems Reviewed And Are Negative: Yes Physical Exam - Summary Physical Exam Summary: The patient is well-nourished in no acute distress and in no acute pain. The skin is warm and dry. The pt looks jaundice. HEENT: The head is normocephalic and atraumatic. The pupils are equal and reactive. The sclera are icteric. Nares are patent and without drainage. Mouth reveals dry mucous membranes and the throat is without erythema and exudate. The external ears are intact. The ear canals are patent and without drainage. The tympanic membranes are intact. Neck is supple with full range of motion and non-tender. Respiratory: Chest is non-tender. Pt has crackles at the bases. Cardiovascular: Hear is regular rate and rhythm. There is no murmur or rub auscultated. There is bilateral pedal edema up to the knees. There are good pulses distally. Abdomen: The abdomen is soft and non-tender. The abdomen has ascites, fluid shift. There are normal bowel sounds heard in all four quadrants. There is an umbilical hernia with erythema on the abdomen wall with some drainage from his hernia. Musculoskeletal: There is no back pain noted. Extremities are non-tender with full range of motion. The capillary refill is 3 seconds. There is bilateral pedal edema up to the knees. Neurological: Patient is alert and oriented to person, place and time. There is general motor weakness. Psychiatric: The patient has an appropriate affect and does not exhibit any anxiety or depression. Pt answers the questions appropriately. Triage Information Reviewed: Yes Vital Signs On Initial Exam: Initial Vitals Temp Pulse Resp BP Pulse Ox 97.7 F 65 16 132/51 99 06/13/17 15:28 06/13/17 15:28 06/13/17 15:28 06/13/17 15:28 06/13/17 15:28 Vital Signs Reviewed: Yes - Nayeli Coma Scale Coma Scale Total: 15 Diagnostics - Vital Signs Vital Signs Temp Pulse Resp BP Pulse Ox 06/13/17 16:00 65 19 131/64 99 06/13/17 15:49 97.4 F 65 16 136/63 97 06/13/17 15:40 65 14 97 06/13/17 15:39 136/63 06/13/17 15:28 97.7 F 65 16 132/51 99 - Laboratory Lab Results: Lab Results 06/13/17 06/13/17 06/13/17 Range/Units 16:23 16:23 16:23 WBC 5.3 (3.5-10.8) 10^3/ul RBC 2.88 L (4.0-5.4) 10^6/ul Hgb 9.0 L (14.0-18.0) g/dl Hct 28 L (42-52) % MCV 99 H (80-94) fL MCH 31 (27-31) pg MCHC 32 (31-36) g/dl RDW 25 H (10.5-15) % Plt Count 148 L (150-450) 10^3/ul MPV 7 L (7.4-10.4) um3 Neut % (Auto) 48.8 (38-83) % Lymph % (Auto) 26.2 (25-47) % Mercer % (Auto) 14.5 H (1-9) % Eos % (Auto) 9.2 H (0-6) % Baso % (Auto) 1.3 (0-2) % Absolute Neuts (auto) 2.6 (1.5-7.7) 10^3/ul Absolute Lymphs (auto) 1.4 (1.0-4.8) 10^3/ul Absolute Monos (auto) 0.8 (0-0.8) 10^3/ul Absolute Eos (auto) 0.5 (0-0.6) 10^3/ul Absolute Basos (auto) 0.1 (0-0.2) 10^3/ul Absolute Nucleated RBC 0.01 10^3/ul Nucleated RBC % 0.1 INR (Anticoag Therapy) (0.89-1.11) Sodium 137 (133-145) mmol/L Potassium 3.6 (3.5-5.0) mmol/L Chloride 104 (101-111) mmol/L Carbon Dioxide 27 (22-32) mmol/L Anion Gap 6 (2-11) mmol/L BUN 4 L (6-24) mg/dL Creatinine 0.66 L (0.67-1.17) mg/dL Est GFR ( Amer) 158.3 (>60) Est GFR (Non-Af Amer) 123.1 (>60) BUN/Creatinine Ratio 6.1 L (8-20) Glucose 122 H (70-100) mg/dL Lactic Acid 2.9 H* (0.5-2.0) mmol/L Calcium 8.6 (8.6-10.3) mg/dL Magnesium 1.7 L (1.9-2.7) mg/dL Total Bilirubin 2.40 H (0.2-1.0) mg/dL AST 44 H (13-39) U/L ALT 18 (7-52) U/L Alkaline Phosphatase 266 H (34-104) U/L Ammonia (16-53) mol/L C-Reactive Protein 34.95 H (< 5.00) mg/L B-Natriuretic Peptide ( - 100) pg/mL Total Protein 7.5 (6.4-8.9) g/dL Albumin 3.1 L (3.2-5.2) g/dL Globulin 4.4 H (2-4) g/dL Albumin/Globulin Ratio 0.7 L (1-3) Amylase 22 L (29-103) U/L Lipase 92 H (11.0-82.0) U/L 06/13/17 06/13/17 Range/Units 16:23 16:23 WBC (3.5-10.8) 10^3/ul RBC (4.0-5.4) 10^6/ul Hgb (14.0-18.0) g/dl Hct (42-52) % MCV (80-94) fL MCH (27-31) pg MCHC (31-36) g/dl RDW (10.5-15) % Plt Count (150-450) 10^3/ul MPV (7.4-10.4) um3 Neut % (Auto) (38-83) % Lymph % (Auto) (25-47) % Mercer % (Auto) (1-9) % Eos % (Auto) (0-6) % Baso % (Auto) (0-2) % Absolute Neuts (auto) (1.5-7.7) 10^3/ul Absolute Lymphs (auto) (1.0-4.8) 10^3/ul Absolute Monos (auto) (0-0.8) 10^3/ul Absolute Eos (auto) (0-0.6) 10^3/ul Absolute Basos (auto) (0-0.2) 10^3/ul Absolute Nucleated RBC 10^3/ul Nucleated RBC % INR (Anticoag Therapy) 1.15 H (0.89-1.11) Sodium (133-145) mmol/L Potassium (3.5-5.0) mmol/L Chloride (101-111) mmol/L Carbon Dioxide (22-32) mmol/L Anion Gap (2-11) mmol/L BUN (6-24) mg/dL Creatinine (0.67-1.17) mg/dL Est GFR ( Amer) (>60) Est GFR (Non-Af Amer) (>60) BUN/Creatinine Ratio (8-20) Glucose (70-100) mg/dL Lactic Acid (0.5-2.0) mmol/L Calcium (8.6-10.3) mg/dL Magnesium (1.9-2.7) mg/dL Total Bilirubin (0.2-1.0) mg/dL AST (13-39) U/L ALT (7-52) U/L Alkaline Phosphatase (34-104) U/L Ammonia 35 (16-53) mol/L C-Reactive Protein (< 5.00) mg/L B-Natriuretic Peptide 288 H ( - 100) pg/mL Total Protein (6.4-8.9) g/dL Albumin (3.2-5.2) g/dL Globulin (2-4) g/dL Albumin/Globulin Ratio (1-3) Amylase (29-103) U/L Lipase (11.0-82.0) U/L Result Diagrams: 06/13/17 16:23 06/13/17 16:23 Lab Statement: Any lab studies that have been ordered have been reviewed, and results considered in the medical decision making process. - Radiology chest XR Xray Interpretation: Positive (See Comments) - IMPRESSION: LEFT basilar pneumonia with probably small associated pleural effusion. ED physician has reviewed this radiology report and agrees. Radiology Interpretation Completed By: Radiologist - CT Abd/Pel CT CT Interpretation Completed By: Radiologist - Pending official interpretation from radiologist. See meditech. - EKG 1702 Cardiac Rate: NL - 63 bpm EKG Rhythm: Sinus Rhythm ST Segment: Non-Specific - non-specific ST changes EKG Interpretation: Normal axis. Poor R wave progression. No STEMI. Dizzy Course/Dx - Course Assessment/Plan: Pt is a 62 y/o male presenting to [facility] c/o dizziness since yesterday, diarrhea x3 days, hernia on his umbilicus for a couple of months. Labs, CT A/P, chest XR, and EKG were obtained. In the ED course, pt was given IV fluids. Labs reveal RBC of 2.88, hgb of 9, hct of 28, glucose of 122, lactic acid of 2.9, AST of 44, alkaline phosphatase of 266, CRP of 34.95, BNP of 288. Chest XR shows LEFT basilar pneumonia with probably small associated pleural effusion. - Diagnoses Differential Diagnosis/HQI/PQRI: Hypovolemia, Other - pneumonia, cellulitis, cirrohosis Provider Diagnoses: Pneumonia, Cellulitis, umbilical - Provider Notifications Discussed Care Of Patient With: Duane Cantu Time Discussed With Above Provider: 17:57 Instructed by Provider To: Other - I discussed the pt's case with Dr. Cantu, who will come see the pt. Discharge - Discharge Plan Condition: Stable Disposition: ADMITTED TO [facility] Referrals: Rosie Noriega MD [Primary Care Provider] - The documentation as recorded by the Marcus segundo Angela accurately reflects the service I personally performed and the decisions made by me, Piotr Yañez MD.
--- NOTE | 2017-06-13 19:19 | RAD ---
INDICATION: Umbilical hernia with drainage. Ascites. Question abscess or incarcerated hernia. Post cholecystectomy and appendectomy. COMPARISON: November 02, 2014 CT. TECHNIQUE: Multidetector CT images were obtained from the lung bases to the ischial tuberosities with 121 mL Omnipaque 300 IV contrast. Multiplanar reformation. Assessment of the alimentary tract limited without oral contrast. REPORT: Small dependent LEFT pleural effusion with proportional compressive atelectasis. Mild cardiomegaly. Nodular liver surface contour consistent with cirrhosis. No focal hepatic lesions visualized. Decreased density of the liver consistent with hepatosteatosis. Post cholecystectomy. Negative for biliary dilatation. No CT abnormality of the pancreas. Negative for splenomegaly. No CT abnormality of the upper GI or small bowel. Post appendectomy. Moderate colonic diverticulosis without findings of diverticulitis. Moderately large volume of diffuse ascites. Negative for free air. Fat and fluid containing umbilical level ventral hernia measuring up to 4.5 cm AP by 7.2 cm transverse by 5.9 cm cephalocaudal exits through a 2.3 cm transverse by 2.0 cm cephalocaudal fascia defect. Increased density within the herniated fat favoring inflammatory change which may represent soft tissue infection or ischemia. Negative for additional hernias. Postsurgical change of previous RIGHT inguinal hernia repair. Normal adrenal glands. Unremarkable kidneys with symmetric nephrograms and pyelograms. Unremarkable nondilated ureters and partially distended urinary bladder. Symmetric seminal vesicles. Multiple small retroperitoneal lymph nodes. Negative for lymphadenopathy by short axis size criteria. Negative for aortoiliac aneurysm. Assess sclerotic calcification of the abdominal aorta and iliac arteries. Physiologic distention of the IVC. Acute or subacute mild anterior column compression fracture at T12 with approximate 30% loss of height at the anterior column. Nondisplaced fracture at the RIGHT 12th rib at the costovertebral junction. Negative for associated periosseous hematoma. There is reticulation of the anterior abdominal wall fat on the RIGHT side from the costal margin extending up to 10 cm caudal suspicious for cellulitis. No loculated LEFT anterior chest wall abscess collection evident. IMPRESSION: 1. Small dependent LEFT pleural effusion with associated atelectasis. 2. Cirrhotic liver morphology. Hepatic steatosis. 3. Moderately large volume of ascites similar to the prior CT. 4. Fat and fluid containing umbilical hernia new compared with the prior exam with inflammatory change which may represent soft tissue infection or ischemia. Additionally there is reticulation of the anterior abdominal wall fat on the RIGHT side from the costal margin extending up to 10 cm caudal suspicious for cellulitis. 5. Acute or subacute mild anterior column compression fracture at T12 with approximate 30% loss of height at the anterior column. Nondisplaced fracture at the RIGHT 12th rib at the costovertebral junction. Negative for associated periosseous hematoma. Results discussed with Dr. Yañez 06/13/2017 7:10 PM EDT
[2017-06-13] MEDS ORDERED: Albuterol HFA INHALER* 8 gm MDI INH PRN (20:09)
[2017-06-13] MEDS ORDERED: hydrOXYzine HCL TAB* 25 MG PO PRN (20:09)
[2017-06-13] MEDS ORDERED: Ondansetron INJ* 2 MG/ML VIAL IV PRN (20:14)
[2017-06-13] MEDS ORDERED: NS 0.9% 1000 ML* 1,000 ML IV SCH (22:15)
[2017-06-13] MEDS: ceFAZolin 1 GM VIAL(*) 1 GM in NS 0.9% 50 ML* 50 ML IVPB SCH (22:33)
[2017-06-13] MEDS: Phenytoin CHEW TAB(*) 50 MG PO SCH (22:35)
[2017-06-13] MEDS: RiFAXimin* 550 MG TAB PO SCH (22:35)
[2017-06-13] MEDS: Spironolactone TAB* 25 MG PO SCH (22:36)
--- NOTE | 2017-06-13 22:48 | HP ---
CC: Rosie Noriega MD * ADMISSION HISTORY AND PHYSICAL: DATE OF ADMISSION: 06/13/17 PRIMARY CARE PROVIDER: Rosie Noreiga MD. HEALTHCARE PROXY: His sister, Cassandra Mata. CODE STATUS: Full. SOURCE OF INFORMATION: History was obtained from interview with the patient and his father, and review of past medical records. Reliability of the patient is poor. Records is excellent. CHIEF COMPLAINT: Diarrhea. HISTORY OF PRESENT ILLNESS: This is a 62-year-old man with past medical history significant for alcoholic cirrhosis, alcohol abuse disorder, reportedly admission complicated by withdrawal seizures in the past, recent subdural hematoma in March, left against medical advice at that time. He had been in his usual state of health until approximately 3 days prior started to develop diarrhea, approximately 4 times loose stools per day. Of note, he takes lactulose. However, noted that his stomach felt unwell and so he discontinued it several days before the onset of diarrhea 3 days prior. The diarrhea increased up until yesterday, it was up to 6 times per day, and then today he felt that he was having a loose stool every time he stood up. Denies nausea or vomiting, abdominal pain, fevers, chills, but does endorse a cough over the last 2 weeks without sputum production or shortness of breath. He notes his last paracentesis was 3 weeks prior, at which time he had 4.5 L of fluid removed. Today, he was seen by his sister at home, thought he "didn't look right" and thought he was slow to react and recommended he come to be evaluated in the emergency room. According to his son at the bedside and reportedly from his sister, they both thought he looked improved since presentation to the emergency room. In the emergency room, the patient underwent chest x-ray that was concerning for a left lower lobe pneumonia, receiving antibiotics. Hospitalist service was consulted for admission. The patient additionally notes that he has a hernia, an umbilical hernia, which has become increasingly red over the last days without associated tenderness or pain. PAST MEDICAL HISTORY: Includes: 1. Right subdural in March 2017. 2. Diabetes per chart review. However, the patient denies history of diabetes. 3. History of alcohol abuse complicated by liver cirrhosis and seizures. 4. Hypertension. 5. History of alcoholic hepatitis. 6. Asthma. 7. Depression. 8. ORIF of his right ankle. 9. Cholecystectomy. 10. Appendectomy. 11. Tonsillectomy. MEDICATIONS: The patient is unable to confirm any of his medications. Currently, at this time medication list is reviewed from his prior hospital stay. A full medication reconciliation will need to be accomplished from the patient's primary care provider. Medications include hydroxyzine 25 mg twice daily as needed, thiamine 100 mg daily, spironolactone 25 mg twice daily, rifaximin 550 mg twice daily, propranolol 10 mg daily, Dilantin two tablets 200 mg at bedtime, multivitamin one tablet daily, lactulose 30 mL 3 times daily, gabapentin 300 mg twice daily, Lasix 20 mg twice daily, folic acid 1 mg daily, Lexapro 10 mg daily, vitamin B12 500 mcg daily, and albuterol HFA 2 puffs inhaled every 4 hours as needed for shortness of breath. ALLERGIES: To ZOLOFT, LORAZEPAM, and BEES. FAMILY HISTORY: Mother with CVA, otherwise no history of hypertension, diabetes , and hyperlipidemia. SOCIAL HISTORY: Former tobacco, quit 35 years prior. History of alcohol abuse. Currently, drinks 1 to 2 beers per week. Denies all illicits. Lives at home. REVIEW OF SYSTEMS: As per HPI, otherwise all other systems are negative. PHYSICAL EXAMINATION GENERAL: Obese man, lying flat in bed, interactive, pleasant, in no apparent distress. VITAL SIGNS: In the emergency room 135/65, heart rate 79, respiratory rate is 18, 95% on room air, T-max 97.4. HEENT: His oropharynx is clear. He has moist mucous membranes. Sclerae are anicteric. NECK: He has nonelevated JVD. No cervical or supraclavicular lymphadenopathy. LUNGS: He has rales in bilateral bases, extending up slightly higher on the left, dullness to percussion in the base of his left lung. HEART: Regular rate and rhythm. He has a 2/6 systolic ejection murmur. ABDOMEN: His abdomen is soft, and distended, without tenderness. He has a midline umbilical hernia that is hard and red with area of central necrosis and extending erythema over the midline of his abdomen. EXTREMITIES: Warm and well perfused. He has 2+ pitting edema in his left lower extremity and 1+ pitting edema in his right lower extremity. NEUROLOGIC: He is alert and oriented x3. Cranial nerves II through XII are intact. LABORATORY DATA: Pertinent labs are reviewed. Lactic acid 2.9, magnesium 1.7 , total bilirubin 2.4, AST 44, ALT 18, alk phos 266, CRP 34.9, BNP 298. His ammonia level is 35. White blood cell count is 5.3, hemoglobin is 9, platelets 148. Data reviewed. Chest x-ray left basilar pneumonia with probable small associated pleural effusion. Please note the following CT abdomen and pelvis read. CT abdomen and pelvis impression is small dependent left pleural effusion with associated atelectasis, cirrhotic liver morphology. Moderate large volume ascites. FAT AND FLUID CONTAINING UMBILICAL HERNIA, NEW COMPARED WITH PRIOR EXAM WITH INFLAMMATORY CHANGE, WHICH MAY REPRESENT SOFT TISSUE INFECTION OR ISCHEMIA. ADDITIONALLY, THERE IS RETICULATION OF THE ANTERIOR ABDOMINAL WALL FAT ON THE RIGHT SIDE FROM THE COSTAL MARGIN EXTENDING UP 10 CM CAUDAL SUSPICIOUS FOR CELLULITIS. Acute or subacute mild anterior column compression fracture at T12 with approximately 30% loss of height of the anterior column, nondisplaced fracture of the right 12th rib at the costovertebral junction. ASSESSMENT AND PLAN: This is a 62-year-old man with past medical history of recent subdural hematoma, alcohol abuse disorder complicated by cirrhosis, recurrent ascites requiring recurrent paracentesis, seizures, and a history of alcohol withdrawal now on Dilantin, presenting with diarrhea with cellulitic umbilical hernia with associated ulceration and cellulitis extending throughout his abdominal wall. 1. Lactic acidosis suspected in the setting of liver disease as well as superimposed infection. Repeat now. I am hesitant to bolus fluid until repeat labs as the patient is quite prone to collect fluid in his abdomen. Additional fluids based on repeat tests. 2. Pneumonia - apparent pneumonia based on chest x-ray. However, appears to be compressive atelectasis on CT scan. Has had cough for the last 2 weeks now. No sputum production, fevers, chills, or shortness of breath. We will not treat for pneumonia at this time. He did receive Zosyn and Levaquin in the emergency room. 3. Diarrhea, potential in the setting of systemic infection from cellulitis. We will continue to hold lactulose. Monitor for improvement. 4. History of diabetes. Check hemoglobin A1c. No sliding scale at this time. 5. Cellulitis with associated umbilical hernia. Start cefazolin, culture. Ulcer on the umbilical hernia. Discussed with Dr. Covarrubias who will evaluate the patient. 6. Cirrhosis. Continue rifaximin, Aldactone, and Lasix. 7. History of alcohol disorder, add on alcohol level to ED labs. 8. Hypertension, continue home medications. 9. Seizures, continue Dilantin. Check Dilantin level in the morning. 10. DVT prophylaxis. Heparin subcu. [id number]/[facility] #: [id number] MTDD
--- NOTE | 2017-06-13 23:13 | CONS ---
CONSULTATION REPORT: DATE OF CONSULTATION/DICTATION: 06/13/17 HISTORY OF PRESENT ILLNESS: I was contacted by the hospitalist service to evaluate Mr. Jarad Mata, a 62-year-old gentleman, who presented to the emergency room at the request of his family members with concern of dizziness and weakness that started yesterday. The patient's workup in the emergency room has included labs and a CAT scan. There was concern for an umbilical hernia along with skin changes at the site and surgical consultation was called. The patient is a reasonably good historian who describes a greater than 2-month history of problems with ascites and fluid drainage from his umbilicus. He has longstanding history of umbilical hernia that has worsened over the course of the last couple of months, first starting with fluid spontaneously drainage from the site. He followed with his doctors. These reports are not available to us, but apparently he saw Gastroenterology, Dr. Kemp, where he was sent for paracentesis on multiple occasions. In first occasion, he had about 11 L taken off and after that, approximately 9 and 8. The fluid draining from the umbilicus had improved; however, the patient describes the skin at that site has worsened and it is more firm. The patient does not describe any nausea or vomiting. He does describe being dizzy and not feeling "right." He has been having diarrhea. He denies any fevers. PAST MEDICAL HISTORY: The patient has a history of liver disease along with concomitant ascites that has required drainage. Additionally, his medical history includes history of asthma, alcohol abuse, history of seizures, and depression. Also, recently had a subdural hematoma. PAST SURGICAL HISTORY: Open cholecystectomy for gangrenous gallbladder. He has had appendectomy, tonsillectomy, and orthopedic surgeries. MEDICATIONS: His medication list is reviewed. SOCIAL HISTORY: The patient still continues to drink. Lives at home with his . He has quit smoking. REVIEW OF SYSTEMS: The patient is progressively getting weaker. He describes dizziness, seizure activities, almost describing that times when he has not drinking, he feels that he is drunk. He again denies any abdominal pain. He has fair appetite. PHYSICAL EXAMINATION: On physical exam, he is afebrile. Vital signs are stable. Head, ears, eyes, nose, and throat: Normocephalic, atraumatic. Sclerae mildly icteric. Abdomen is soft, distended, nontender, tympanic in the mid portion with abdominal tympany laterally. There is a large excoriated umbilicus that is protruding and consistent with umbilical hernia. The excoriation site is approximately 2 x 2.5 cm. It appears to be partial thickness skin erosion with some bleeding. There is control with direct pressure after abrading this. I do not appreciate any ascitic fluid drainage at this time. There is induration in the tissues below, but the umbilicus and its hernia is identifiable and portions of the contents of the hernia are reducible. There is no blanching erythema or signs of infection at the site. Stick site consistent with previous paracentesis. LABORATORY DATA/DIAGNOSTIC STUDIES: Labs reviewed. White count of 5.3, anemia. Chemistry panel reviewed. CT scan of the abdomen and pelvis reviewed, images as well as the report and it shows a cirrhotic liver morphology, moderate to large volume ascites, fat and fluid containing umbilicus with inflammatory changes. 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 It is still spontaneously draining from the umbilical hernia, but is less so after the treatment. I do not recommend umbilical hernia repair at this time for this patient. This hernia does not show signs of incarceration as I can reduce around it, but it does show the erosion of the skin secondary to the large volume ascites the patient has been dealing with. The patient is currently not having abdominal pain. I do not believe he is suffering with the bacterial peritonitis. I think he would benefit from additional paracenteses and would possibly at this point benefit from a tunneled catheter for this purpose. We can look towards doing this procedure at some point this week since he is being hospitalized. Additionally, the patient would likely need a TIPS procedure as he is not a candidate for hepatic transplant at this time given his active alcohol use. TIPS may offer an opportunity to decrease the continued swelling and ascites. This might give an opportunity to excise the umbilical skin in the future, but currently this is too morbid procedure for this gentleman as he will continue to actively drain from the surgical site if we should do this. Plan will be for likely paracentesis on this admission with likely tunneled catheterization for this purpose. I recommend GI consultation. [id number]/[facility] #: [id number] GR[facility] SQUARE HOSPITALMaciej
[2017-06-13] MEDS ORDERED: traMADol TAB* 50 MG PO ONE (23:18)
[2017-06-14 00:03] LABS: Urine Bilirubin Negative (Negative); Urine Glucose Negative (Negative); Urine Nitrite Negative (Negative)
[2017-06-14 05:13] LABS: Comments Flag Yes; Hematocrit 23 % (42-52); Hemoglobin 7.4 g/dl (14.0-18.0); Mean Corpuscular HGB Conc 32 g/dl (31-36); Mean Corpuscular Hemoglobin 32 pg (27-31); Mean Corpuscular Volume 98 fL (80-94); Mean Platelet Volume 7 um3 (7.4-10.4); Red Blood Count 2.32 10^6/ul (4.0-5.4); White Blood Count 4.5 10^3/ul (3.5-10.8)
[2017-06-14 05:14] LABS: Red Cell Distribution Width 24 % (10.5-15)
[2017-06-14] MEDS: ceFAZolin 1 GM VIAL(*) 1 GM in NS 0.9% 50 ML* 50 ML IVPB SCH ×3 (05:24→22:04)
[2017-06-14 05:26] LABS: Albumin 2.4 g/dL (3.2-5.2); BUN/Creatinine Ratio 5.7 (8-20); Calcium 7.8 mg/dL (8.6-10.3); Direct Bilirubin 0.7 mg/dL (0.03-0.18); EGFR African American 147.9 (>60); Globulin 3.5 g/dL (2-4); Indirect Bilirubin 1.2 mg/dL (0.3-1.0); Potassium 3.8 mmol/L (3.5-5.0); Total Bilirubin 1.9 mg/dL (0.2-1.0); Total Protein 5.9 g/dL (6.4-8.9)
[2017-06-14] MEDS: Heparin VIAL(*) 5000 UNITS/ML VIAL (FIVE THOUSAND) SUBCUT SCH ×3 (05:27→22:15)
[2017-06-14 05:33] LABS: Phenytoin 15.8 mcg/mL (10-20)
[2017-06-14] MEDS ORDERED: NS 0.9% 500 ML BAG* 500 ML IV ONE (06:00)
[2017-06-14] MEDS ORDERED: Furosemide TAB* 20 MG PO SCH (08:00)
[2017-06-14] MEDS ORDERED: Influenza VAC *QUAD* 2017-18* 0.5 ML SYRINGE IM ONE (09:00)
[2017-06-14] MEDS: Cyanocobalamin TAB* 500 MCG PO SCH (09:23)
[2017-06-14] MEDS: Propranolol TAB* 10 MG PO SCH (09:23)
[2017-06-14] MEDS: Folic Acid TAB* 1 MG PO SCH (09:23)
[2017-06-14] MEDS: Spironolactone TAB* 25 MG PO SCH (09:24)
[2017-06-14] MEDS: RiFAXimin* 550 MG TAB PO SCH ×2 (09:24→20:24)
[2017-06-14] MEDS: Thiamine TAB* 100 MG TAB PO SCH (09:26)
[2017-06-14] MEDS: Gabapentin CAP(*) 300 MG PO SCH ×2 (15:23→20:22)
--- NOTE | 2017-06-14 16:36 | CONS ---
CC: Dr. Noriega * CONSULTATION REPORT: DATE OF CONSULT: 06/14/17 REQUESTING PHYSICIAN: Dr. Liu. PRIMARY CARE PHYSICIAN: Dr. Noriega. INDICATION: Ascites management. NARRATIVE: Mr. Mata is a 62-year-old alcoholic with cirrhosis, who has a history of ascites and varices in the past. He was admitted just a few days ago with worsening diarrhea. He is being evaluated for this. I am seeing him today for management of his ascites. The patient has had numerous large volume paracenteses in the past, his last was approximately 3 weeks ago. He is on minimal doses of diuretics at this point. I am not sure about his compliance with low sodium diet. His ascites is complicated by a very large umbilical hernia that will spontaneously drain and is now infected. Of note, he continues to drink alcohol. He understands that he will not be a candidate for a minimum of 6 months for a liver transplant as long as he continues to drink. He also understands that continuing to drink will likely kill him. PAST MEDICAL HISTORY: 1. Subdural hematoma in March of this year. 2. Alcohol abuse. 3. Hypertension. 4. Asthma. 5. Depression. PAST SURGICAL HISTORY: Includes: 1. Tonsillectomy. 2. Appendectomy. 3. Cholecystectomy. 4. Right ankle fracture with repair. MEDICATIONS: Include: 1. Hydroxyzine. 2. Thiamine. 3. Spironolactone 25 mg twice a day. 4. Rifaximin. 5. Propranolol. 6. Dilantin. 7. Lactulose 30 mg 3 times a day. 8. Gabapentin. 9. Lasix 20 mg twice a day. 10. Folic acid. 11. Lexapro 10 mg a day. 12. Vitamin B12. 13. Albuterol. ALLERGIES: To LORAZEPAM and ZOLOFT. FAMILY HISTORY: CVA. SOCIAL HISTORY: Quit tobacco. Continues to drink alcohol. REVIEW OF SYSTEMS: Twelve systems were reviewed, other than that mentioned in the HPI were unremarkable. PHYSICAL EXAM: Vital Signs: Temperature is 99, blood pressure is 119/56, pulse is 83. General: Chronically ill-appearing male, in no apparent distress. Alert, oriented, pleasant, and fluent. He appears disheveled. HEENT : Mucous membranes are moist. Heart: Regular rate and rhythm. Lungs: Slight diffuse distant breath sounds bilaterally. No wheezes, rales or rhonchi. Abdomen: Distended. Positive bowel sounds. Shifting dullness and fluid waves. He has a dressing in place over his umbilical hernia. Skin is warm and dry. Neuro: No asterixis. DIAGNOSTIC STUDIES/LAB DATA: Of note, white count was 4.5, hemoglobin is 7.4, platelets of 106,000. INR is 1.15. Sodium is 134, BUN is 4, creatinine is 0.7. Bilirubin is 1.9, AST is 36, ALT is 13, alk phos is 199, albumin is 2.4. IMPRESSION: This is a 62-year-old gentleman with ascites, who is being considered for shunts or drains for his ascites. At this point, I really do not think we need to go there as the patient has not even maximized his diuretics. He is only on 40 mg of Lasix, those are in divided doses. I am going to change him to a total of 80 mg a day once. His Aldactone is 50 mg divided, it needs to be changed to 100 mg once a day. I discussed with him a low-sodium diet. He needs to fully adhere to this. We need to increase his paracentesis schedules, these have been performed through either [facility] or [facility]. He needs to be tapped every 2 to 3 weeks. He needs to have albumin if more than 6 liters is removed. He is not a candidate for TIPS. He is not a candidate for transplant and I would avoid any "drains" at this point. [id number]/[facility] #: [id number] MTDD
--- NOTE | 2017-06-14 16:47 | PN ---
Subjective Date of Service: 06/14/17 Interval History: Feels "much better" today. Denies abd pain. Has had a wound on umbilical hernia for several days. Still drinks ETOH Objective Active Medications: Albuterol (Ventolin Hfa Inhaler*) 2 puff INH Q4H PRN PRN Reason: SOB/WHEEZING Cyanocobalamin (Vitamin B12 Tab*) 500 mcg PO DAILY [facility] Last Admin: 06/14/17 09:23 Dose: 500 mcg Folic Acid (Folvite Tab*) 1 mg PO DAILY [facility] Last Admin: 06/14/17 09:23 Dose: 1 mg Furosemide (Lasix Tab*) 80 mg PO DAILY [facility] Gabapentin (Neurontin Cap(*)) 300 mg PO BID [facility] Last Admin: 06/14/17 15:23 Dose: 300 mg Heparin Sodium (Porcine) (Heparin Vial(*)) 5,000 units SUBCUT Q8HR [facility] Last Admin: 06/14/17 15:22 Dose: 5,000 units Hydroxyzine HCl (Atarax Tab*) 25 mg PO BID PRN PRN Reason: ITCHING Cefazolin Sodium 1 gm/ Sodium (Chloride) 50 mls @ 200 mls/hr IVPB Q8H [facility] Last Admin: 06/14/17 15:23 Dose: 200 mls/hr Ondansetron HCl (Zofran Inj*) 4 mg IV Q4H PRN PRN Reason: NAUSEA/VOMITING Phenytoin Sodium (Dilantin Infatabs Chew Tab(*)) 200 mg PO BEDTIME [facility] Last Admin: 06/13/17 22:35 Dose: 200 mg Propranolol HCl (Inderal Tab*) 10 mg PO DAILY [facility] Last Admin: 06/14/17 09:23 Dose: 10 mg Rifaximin (Xifaxan*) 550 mg PO BID [facility] Last Admin: 06/14/17 09:24 Dose: 550 mg Spironolactone (Aldactone Tab*) 100 mg PO DAILY [facility] Thiamine HCl (Vitamin B-1 Tab*) 100 mg PO DAILY [facility] Last Admin: 06/14/17 09:26 Dose: 100 mg Vital Signs 06/13/17 06/13/17 06/13/17 20:33 21:56 21:57 Temperature 98.8 F 98.8 F Pulse Rate 76 73 73 Respiratory 18 20 20 Rate Blood Pressure 133/61 143/61 143/61 (mmHg) O2 Sat by Pulse 95 96 96 Oximetry 06/13/17 06/14/17 06/14/17 23:25 01:25 03:56 Temperature 99.4 F Pulse Rate 96 Respiratory 17 18 17 Rate Blood Pressure 118/100 (mmHg) O2 Sat by Pulse 93 Oximetry 06/14/17 06/14/17 06/14/17 04:12 07:24 11:10 Temperature 99.0 F 98.2 F Pulse Rate 83 81 Respiratory 20 20 Rate Blood Pressure 129/54 119/56 121/48 (mmHg) O2 Sat by Pulse 97 99 Oximetry 06/14/17 06/14/17 06/14/17 14:29 15:23 16:25 Temperature 97.2 F 98.6 F Pulse Rate 80 81 Respiratory 16 14 16 Rate Blood Pressure 147/69 129/57 (mmHg) O2 Sat by Pulse 98 Oximetry Oxygen Devices in Use Now: None Appearance: 62 yo M in nAD, AAOx3 Eyes: No Scleral Icterus, PERRLA Ears/Nose/Mouth/Throat: NL Teeth, Lips, Gums, Mucous Membranes Moist Neck: NL Appearance and Movements; NL JVP, Trachea Midline Respiratory: Symmetrical Chest Expansion and Respiratory Effort, Clear to Auscultation Cardiovascular: NL Sounds; No Murmurs; No JVD, RRR Abdominal: - - soft ascites present, NT, BS+ Extremities: No Clubbing, Cyanosis Skin: No Nodules or Sclerosis, - - cellulits present on periumbilical area and left abd. skin ulceration on umbilical hernia at 4 x4 cm stage 3 Neurological: Alert and Oriented x 3, NL Muscle Strength and Tone Result Diagrams: 06/14/17 04:52 06/14/17 04:53 Additional Lab and Data: Lab Results 06/13/17 06/13/17 06/13/17 Range/Units 16:23 16:23 16:23 WBC 5.3 (3.5-10.8) 10^3/ul RBC 2.88 L (4.0-5.4) 10^6/ul Hgb 9.0 L (14.0-18.0) g/dl Hct 28 L (42-52) % MCV 99 H (80-94) fL MCH 31 (27-31) pg MCHC 32 (31-36) g/dl RDW 25 H (10.5-15) % Plt Count 148 L (150-450) 10^3/ul MPV 7 L (7.4-10.4) um3 Neut % (Auto) 48.8 (38-83) % Lymph % (Auto) 26.2 (25-47) % [place]own[place] % (Auto) 14.5 H (1-9) % Eos % (Auto) 9.2 H (0-6) % Baso % (Auto) 1.3 (0-2) % Absolute Neuts (auto) 2.6 (1.5-7.7) 10^3/ul Absolute Lymphs (auto) 1.4 (1.0-4.8) 10^3/ul Absolute Monos (auto) 0.8 (0-0.8) 10^3/ul Absolute Eos (auto) 0.5 (0-0.6) 10^3/ul Absolute Basos (auto) 0.1 (0-0.2) 10^3/ul Absolute Nucleated RBC 0.01 10^3/ul Nucleated RBC % 0.1 INR (Anticoag Therapy) (0.89-1.11) Sodium 137 (133-145) mmol/L Potassium 3.6 (3.5-5.0) mmol/L Chloride 104 (101-111) mmol/L Carbon Dioxide 27 (22-32) mmol/L Anion Gap 6 (2-11) mmol/L BUN 4 L (6-24) mg/dL Creatinine 0.66 L (0.67-1.17) mg/dL Est GFR ( Amer) 158.3 (>60) Est GFR (Non-Af Amer) 123.1 (>60) BUN/Creatinine Ratio 6.1 L (8-20) Glucose 122 H (70-100) mg/dL Lactic Acid 2.9 H* (0.5-2.0) mmol/L Calcium 8.6 (8.6-10.3) mg/dL Magnesium 1.7 L (1.9-2.7) mg/dL Total Bilirubin 2.40 H (0.2-1.0) mg/dL AST 44 H (13-39) U/L ALT 18 (7-52) U/L Alkaline Phosphatase 266 H (34-104) U/L Ammonia (16-53) mol/L C-Reactive Protein 34.95 H (< 5.00) mg/L B-Natriuretic Peptide ( - 100) pg/mL Total Protein 7.5 (6.4-8.9) g/dL Albumin 3.1 L (3.2-5.2) g/dL Globulin 4.4 H (2-4) g/dL Albumin/Globulin Ratio 0.7 L (1-3) Amylase 22 L (29-103) U/L Lipase 92 H (11.0-82.0) U/L 06/13/17 06/13/17 Range/Units 16:23 16:23 WBC (3.5-10.8) 10^3/ul RBC (4.0-5.4) 10^6/ul Hgb (14.0-18.0) g/dl Hct (42-52) % MCV (80-94) fL MCH (27-31) pg MCHC (31-36) g/dl RDW (10.5-15) % Plt Count (150-450) 10^3/ul MPV (7.4-10.4) um3 Neut % (Auto) (38-83) % Lymph % (Auto) (25-47) % [place] % (Auto) (1-9) % Eos % (Auto) (0-6) % Baso % (Auto) (0-2) % Absolute Neuts (auto) (1.5-7.7) 10^3/ul Absolute Lymphs (auto) (1.0-4.8) 10^3/ul Absolute Monos (auto) (0-0.8) 10^3/ul Absolute Eos (auto) (0-0.6) 10^3/ul Absolute Basos (auto) (0-0.2) 10^3/ul Absolute Nucleated RBC 10^3/ul Nucleated RBC % INR (Anticoag Therapy) 1.15 H (0.89-1.11) Sodium (133-145) mmol/L Potassium (3.5-5.0) mmol/L Chloride (101-111) mmol/L Carbon Dioxide (22-32) mmol/L Anion Gap (2-11) mmol/L BUN (6-24) mg/dL Creatinine (0.67-1.17) mg/dL Est GFR ( Amer) (>60) Est GFR (Non-Af Amer) (>60) BUN/Creatinine Ratio (8-20) Glucose (70-100) mg/dL Lactic Acid (0.5-2.0) mmol/L Calcium (8.6-10.3) mg/dL Magnesium (1.9-2.7) mg/dL Total Bilirubin (0.2-1.0) mg/dL AST (13-39) U/L ALT (7-52) U/L Alkaline Phosphatase (34-104) U/L Ammonia 35 (16-53) mol/L C-Reactive Protein (< 5.00) mg/L B-Natriuretic Peptide 288 H ( - 100) pg/mL Total Protein (6.4-8.9) g/dL Albumin (3.2-5.2) g/dL Globulin (2-4) g/dL Albumin/Globulin Ratio (1-3) Amylase (29-103) U/L Lipase (11.0-82.0) U/L Microbiology and Other Data: Microbiology 06/13/17 20:44 Skin and Soft Tissue MRSA/MSSA (PCR - Final Abdomen Mrsa Negative S.aureus Positive Gram Stain - Final Wound Culture - Preliminary Staphylococcus Aureus Assess/Plan/Problems-Billing Assessment: 62 yo M with h/o alcoholism, ETOH related liver failure, paracenteses Q3-4 weeks, seizures, SDH after a fall now with cellulitis on abdomen - Patient Problems (1) Ascites Comment: appreciate GI and surgery's assistance. As d/w both will plan for paracentesis with Dr. Covarrubias tomorrow cont increased diuretics as per Dr. Ferreira (2) Abdominal wall cellulitis Comment: source is an opened wound on umbilical hernia that gets more protruding with asictes Appreciate surgical and wound care consult cont Ancef, improving (3) Alcohol abuse Comment: Wants outpatient addiction-treatment program appears not ready to stop despite a long conversation today and awarness that his liver is failing Agrees to palliative care consult re: goals and code status (4) Alcoholic hepatitis with ascites Comment: cont lactulose and rifaximin LFT's close to baseline (5) Seizures Comment: Continue Pheyntoin 200 mg in PM. (6) Elevated lactic acid level Comment: no evidence of acidosis pt is non toxic appearing H/o chronic elevation in the past (7) DVT prophylaxis Comment: heparin sc holding prior to paracentesis in AM Status and Disposition: inpatient
[2017-06-14] MEDS: Phenytoin CHEW TAB(*) 50 MG PO SCH (20:23)
[2017-06-15] MEDS: Heparin VIAL(*) 5000 UNITS/ML VIAL (FIVE THOUSAND) SUBCUT SCH ×2 (05:10→13:11)
[2017-06-15] MEDS: ceFAZolin 1 GM VIAL(*) 1 GM in NS 0.9% 50 ML* 50 ML IVPB SCH ×2 (06:01→13:11)
[2017-06-15 06:03] LABS: Hematocrit 23 % (42-52); Hemoglobin 7.4 g/dl (14.0-18.0); Mean Corpuscular HGB Conc 32 g/dl (31-36); Mean Corpuscular Hemoglobin 32 pg (27-31); Mean Corpuscular Volume 99 fL (80-94); Mean Platelet Volume 7 um3 (7.4-10.4); Red Blood Count 2.32 10^6/ul (4.0-5.4); White Blood Count 4.1 10^3/ul (3.5-10.8)
[2017-06-15 06:04] LABS: Comments Flag Yes; Red Cell Distribution Width 24 % (10.5-15)
[2017-06-15 06:25] LABS: Albumin 2.4 g/dL (3.2-5.2); BUN/Creatinine Ratio 6.9 (8-20); Calcium 8.2 mg/dL (8.6-10.3); EGFR African American 183.8 (>60); EGFR Non-African American 142.9 (>60); Globulin 3.4 g/dL (2-4); Magnesium 1.6 mg/dL (1.9-2.7); Potassium 3.7 mmol/L (3.5-5.0); Total Bilirubin 2.6 mg/dL (0.2-1.0); Total Protein 5.8 g/dL (6.4-8.9)
[2017-06-15] MEDS ORDERED: Magnesium Sulfate 2 GM IV* 2 GM/50 ML BAG IVPB ONE (08:15)
[2017-06-15] MEDS ORDERED: Furosemide TAB* 40 MG PO SCH (09:00)
[2017-06-15] MEDS ORDERED: Magnesium Oxide TAB* 400 MG PO SCH (09:00)
[2017-06-15] MEDS ORDERED: Spironolactone TAB* 25 MG PO SCH (09:00)
[2017-06-15] MEDS: Cyanocobalamin TAB* 500 MCG PO SCH (09:44)
[2017-06-15] MEDS: Thiamine TAB* 100 MG TAB PO SCH (09:45)
[2017-06-15] MEDS: Propranolol TAB* 10 MG PO SCH (09:45)
[2017-06-15] MEDS: RiFAXimin* 550 MG TAB PO SCH (09:46)
[2017-06-15] MEDS: Gabapentin CAP(*) 300 MG PO SCH (09:46)
[2017-06-15] MEDS: Folic Acid TAB* 1 MG PO SCH (09:46)
[2017-06-15 10:46] VITALS: BP 138/67
--- NOTE | 2017-06-15 12:48 | PN ---
Progress Note - Progress Note Date of Service: 06/15/17 SOAP: Subjective: Pt seen and abdomen examined. S/p Paracentesis today Feeling better. Appetite returning. Objective: abdo: soft/ less distended after 5L removed. Umbilicus: partial thickness wound represents denuded area where ascitic fluid coninues to spontaneously drain. No incarcerated bowel. Assessment: Large volume ascities, umbilical hernia Plan: wound care Paracentesis as needed. recall prn
--- NOTE | 2017-06-15 14:55 | CONS ---
CC: Rosie Noriega MD * PALLIATIVE CARE CONSULTATION: DATE OF CONSULT: 06/15/17 PRIMARY CARE PHYSICIAN: Rosie Noriega MD. REFERRING PHYSICIAN: Diann Liu MD HOSPITAL COURSE: This is a 62-year-old male with a past medical history of alcohol abuse complicated by liver cirrhosis and status epilepticus secondary to alcohol withdrawal, who presented to the emergency room on the for complaints of diarrhea. The patient has had recurrent emergency room visits and admissions for various issues related to his alcohol abuse. The consultation was requested for discussion and advance care planning. The patient states that he has planned to go home today, he states he is in a good place. He feels that he is going to be on a good regimen followed by Dr. Ferreira for his diuretic therapy and that he is planning to stop drinking alcohol. He states he has cut back significantly to 1 to 2 drinks per week and understands that he cannot do this anymore and he is planning to go to outpatient rehab and he has been going to . He states his at home helps care for him, but she also drinks about 4 to 5 glasses of wine per day. 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 Patient states that he has been very off-balance, but feels safer with a walker. He has not fallen in over a month. He denies any shortness of breath, no pain, his diarrhea has improved otherwise remaining review of systems is negative. I did speak with the patient regarding who healthcare proxy is and he confirmed that it is his sister Cassandra Mata, she is a nurse here in the mental health floor. We discussed his MOLST form and he would like to be a full code and we discussed that this should be readdressed with each admission and he is agreeable to that as well. PAST MEDICAL HISTORY: 1. History of umbilical hernia. 2. History of right subdural hematoma in March 2017. 3. History of alcohol abuse with liver cirrhosis and history of status epilepticus secondary to alcohol withdrawal. 4. History of hepatic encephalopathy. 5. History of recurrent ascites. 6. History of cholecystectomy. 7. Asthma. 8. Depression. 9. Anxiety. 10. ORIF of his right ankle. 11. Appendectomy. 12. Tonsillectomy INPATIENT MEDICATIONS: 1. Albuterol 2 puffs inhaled q. 4 hours as needed. 2. Cyanocobalamin 500 mcg p.o. daily. 3. Folic acid 1 mg p.o. daily. 4. Lasix 80 mg daily. 5. Gabapentin 300 mg p.o. b.i.d. 6. Heparin 5000 units subcu t.i.d. 7. Cefazolin 1 g q. 8 hours. 8. Magnesium oxide 800 mg p.o. daily. 9. Zofran 4 mg IV q. 4 hours as needed. 10. Phenytoin 200 mg p.o. at bedtime. 11. Propranolol 10 mg daily. 12. Rifaximin 550 mg p.o. b.i.d. 13. Spironolactone 100 mg p.o. daily. 14. Thiamine 100 mg p.o. daily. 15. Hydroxyzine 25 mg p.o. b.i.d. as needed. ALLERGIES: SERTRALINE, LORAZEPAM, and BEES. FAMILY HISTORY: His mother with CVA. SOCIAL HISTORY: Patient lives at home with his . He states he is drinking 1 to 2 drinks per week, which he has significantly cut back and is planning to no longer drink at all. No history of smoking or other illicit drug use. As mentioned, his healthcare proxy is his sister Cassandra Mata. He remains a full code. REVIEW OF SYSTEMS: A 14 point review of systems as mentioned in the HPI. Pertinent positive negatives reviewed and as mentioned in the HPI, otherwise negative. PHYSICAL EXAM: Vitals: Temp 90.6, pulse rate 64, respiratory rate 20, oxygen saturation 100% on room air, blood pressure 138/67. General: No acute distress , resting comfortably. HEENT: Head normocephalic. Pupils equal and reactive, anicteric. Oropharynx: Mucous membranes moist. Neck: Supple. No lymphadenopathy. Cardiac: Regular rate and rhythm. Soft systolic murmur heard throughout. Respiratory: Diminished breath sounds. No wheeze, rhonchi, or rales. Abdomen: Soft, mildly distended. Positive fluid waves, nontender. Extremities: No clubbing, cyanosis or edema. +1 DP. Neurologic: Alert and oriented x3. No gross focal neurologic deficits. Derm: Patient with scattered excoriated lesions on his upper extremities and scattered ecchymosis as well. LABORATORY DATA: White count 4.1, hemoglobin 7.4, hematocrit 23, platelets 111. INR 1.15. Sodium 136, potassium 3.7, chloride 107, bicarb 26, BUN 4, creatinine 0.58. Total bili is 2.6, AST is 30, ALT is 12, alk phos 204, albumin is 2.4. Alcohol level on admission was 145. ASSESSMENT AND PLAN: This is a 62-year-old male with past medical history of alcohol abuse complicated by liver cirrhosis, recurrent admissions for ascites, hepatic encephalopathy, etc. who presents to the emergency room for diarrhea; was found to have significant ascites, status post paracentesis today also was noted to have abdominal wall cellulitis and is being treated with antibiotics. We did discuss at length goals of care. Patient is motivated to stop drinking. He has a 21-year-old son and he is motivated to be around for him when he gets and has children. He is planning to go to outpatient rehab and continue with AA and he would like to remain a full code. He did designate his healthcare proxy to be his sister Cassandra Mata. I encouraged him to stay motivated, to discontinue drinking and that if he does get readmitted for more complications related to alcohol abuse that he should not hesitate to have me come back and discuss goals of care again with him. Thank you for this consultation. PATIENT TIME: Greater than 90 minutes was spent doing the consultation, more than half time was spent in direct patient contact. [id number]/[facility] #: [id number] MARILUZ
--- NOTE | 2017-06-16 02:00 | OP ---
CC: Rishabh Ferreira MD; Dr. Rosie Noriega * DATE OF OPERATION: 06/15/17 - ROOM #415 DATE OF : 59 SURGEON: Denis Covarrubias MD CRANKSHAFT BALANCER: None. ANESTHESIA: Local anesthesia. PRE-OP DIAGNOSIS: Large volume ascites secondary to alcoholic cirrhosis. POST-OP DIAGNOSIS: Large volume ascites secondary to alcoholic cirrhosis. OPERATIVE PROCEDURE: Ultrasound guided paracentesis. ESTIMATED BLOOD LOSS: None. SPECIMEN: None. 5 L of peritoneal fluid removed. DESCRIPTION OF PROCEDURE: The patient was brought into the procedure suite, case discussed with him, went over the risks, benefits, and alternatives. We spoke about possible complications, which included, but not limited to bleeding , infection, continued leakage around the site, need for repeat paracentesis, possibility of bowel injury, possibility of worsening umbilical hernia and drainage. The patient signed consent. We placed the ultrasound probe over the right lower abdomen, the patient was positioned and a point on the abdominal wall chosen where a large bucket of fluid was clearly identified with the help of ultrasound. The area was then prepped and draped. Utilizing an 8-Romanian paracentesis kit, we injected lidocaine 1% for local block with caudal retraction on the abdominal skin, we entered into the abdomen with the ____ and advanced the tubing without difficulty. The needle was then removed and the tubing was set to gravity drainage which got about 800 cc at this point and then shifted to canister bottle. Overall 5 L of fluid was removed, this was straw colored, non bloody, non purulent, non cloudy, and was not sent for specimen. The catheter was removed when fluids ceased and dressing was applied. The patient tolerated the procedure well. His vitals were normal throughout the procedure and the patient was transferred back to the floor. [id number]/[facility] #: [id number] [facility]
--- NOTE | 2017-06-16 03:08 | DS ---
CC: Dr. Noriega; Dr. Xiong; Dr. Ferreira; Dr. Covarrubias DISCHARGE SUMMARY: DATE OF ADMISSION: 06/13/17 DATE OF DISCHARGE: 06/15/17 PRIMARY CARE PROVIDER: Dr. Noriega. DISCHARGE DIAGNOSES: 1. Skin overlying the umbilical hernia ulceration with subsequent cellulitis of the abdominal wall. 2. Recurrent ascites due to alcoholic liver cirrhosis. 3. Ongoing alcohol abuse. SECONDARY DIAGNOSES: 1. History of alcoholic liver cirrhosis. 2. History of ascites, status post frequent paracentesis. 3. History of subdural hematoma in March of 2017 that was posttraumatic. 4. History of alcohol abuse. 5. Hypertension. 6. Asthma. 7. Depression. 8. Incidentally noted elevated lactic acid which is consistent with prior reports. 9. Hypomagnesemia. CONSULTATIONS DURING THE HOSPITAL STAY: Included Dr. Covarrubias from Surgery; Dr. Ferreira, Gastroenterology. PROCEDURES PERFORMED: Included therapeutic paracentesis performed by Dr. Covarrubias , 5 L of ascitic fluid was removed on 06/15/17. MEDICATIONS AT DISCHARGE: Include: 1. Albuterol inhaler 2 puffs inhalation every 4 hours p.r.n. 2. Keflex 500 mg 3 times a day for 7 days total. 3. Vitamin B12 500 mcg daily. 4. Lexapro 10 mg daily. 5. Folic acid 1 mg daily. 6. Furosemide 80 mg daily. 7. Neurontin 300 mg b.i.d. 8. Lactulose 30 mL 3 times a day. 9. Mag-Ox 800 mg daily. 10. Multivitamin 1 tablet daily. 11. Dilantin 200 mg p.o. nightly. 12. Propranolol 10 mg daily. 13. Rifaximin 550 mg b.i.d. 14. Aldactone 100 mg daily. 15. Thiamine 100 mg daily. 16. Hydroxyzine 25 mg b.i.d. p.r.n. 17. Ultram 50 mg every 6 hours p.r.n. WOUND DRESSINGS: The patient is to apply Xeroform wound dressing to the umbilical hernia wound and change it daily. The patient is also set up with visiting nurse association for followup at home and wound dressing changes. DIET AT HOME: No salt. FOLLOWUP RECOMMENDATION: To follow up with primary care provider in approximately 4 to 7 days. The patient is to follow up with Dr. Ferreira in 1 to 2 weeks. The patient is to call Dr. Ferreira's or Dr. Covarrubias's office if he requires another paracentesis. The patient is recommended to have basic metabolic panel drawn within the next 7 days to be sent to Dr. Ferreira and the patient's primary care provider. HOSPITALIZATION COURSE: Jarad Mata is a 62-year-old male with history of alcoholism and liver cirrhosis, who had required frequent paracentesis due to his liver failure and presented to the hospital with complaints of feeling poorly and having diarrhea. The patient was noted to have abdominal wall cellulitis with a source being most likely a skin wound in the area overlying umbilical hernia. Dr. Covarrubias saw the patient in surgical consultation, noted that the patient is not a good candidate for surgery and to be treated conservatively. He offered possibility of tunneled catheter placed for frequent paracentesis. Dr. Ferreira saw the patient in consultation and recommended no catheter placement. Dr. Ferreira also stated that the patient is not yet a candidate for TIPS procedure and that he requires increase in doses of his diuretics. Dr. Ferreira recommended 100 mg dose of Aldactone and 80 mg of dose of Lasix which was started for the patient and continued throughout his hospital stay. For abdominal wall cellulitis, the patient was placed on IV cefazolin and he is going to be discharged on p.o. Keflex. That basically resolved by the time of discharge. For the wound overlying the umbilical hernia in the abdomen, Wound consult was requested and recommendations were for the patient to have Xeroform placed and covered with gauze on a daily basis. We will also set up visiting nurse association to provide the patient with needed help. The patient also was recommended to call Dr. Ferreira's office or Dr. Covarrubias's office if he requires another paracentesis. The patient still is having problems with his alcohol addiction. He was informed multiple times that any further alcohol intake could "kill him." He still seems to believe that he can take an occasional beer. At this point, Palliative Care consult was recommended in regards of goals of care of this patient. The patient was made aware that it is okay if he decides that he chooses to be basically left comfortable and continue to drink alcohol since he is an adult and competent to make decisions. At this point, we are awaiting Dr. Areli Cervantes to come in and see the patient for Palliative Care consultation. Also, it was requested for Palliative Care consult to discuss with the patient code status, which will be done before the patient leaves the hospital today. PHYSICAL EXAMINATION AT THE TIME OF DISCHARGE: Blood pressure of 138/67, heart rate of 64 and regular, respiratory rate 20, oxygen saturation 100% on room air , temperature 98.6. General: The patient is a very pleasant 62-year-old male, who is in no acute distress. Alert, awake, and oriented x3. HEENT: Head atraumatic, normocephalic. Eyes: Pupils are equal and reactive to light and accommodation. Oropharynx clear. Mucosa moist. Neck: Supple. No JVD. No bruits bilaterally. Cardiovascular: Regular rate and rhythm. No murmur. Respiratory: Clear to auscultation bilaterally. Abdomen: Soft, nontender. Bowel sounds present in all 4 quadrants. Umbilical hernia is present that is nontender to palpation. There is an ulceration on the tip of the umbilical hernia of approximately 4 x 4 cm. The bottom of the ulcer is covered with slough. Please note that abdominal cellulitis resolved by the time of discharge. Extremities: There is no edema. Pulses +2 bilaterally. No clubbing or cyanosis. Neuro Evaluation: Speech clear. Cranial nerves II through XII grossly intact. Motor strength is 5/5 bilaterally. Please also note that prior to discharge in the morning, the patient had therapeutic paracentesis performed by Dr. Covarrubias and 5 L of ascitic fluid was removed. LABORATORY DATA DURING THE HOSPITAL STAY: Included: On 06/15/17, sodium of 136 , potassium 3.7, chloride 107, carbon dioxide 26, BUN 4, creatinine 0.58. Lactic acid was in the range of 3 throughout his hospital stay, but the patient was nontoxic appearing and there was no acidosis noted on his basic metabolic panel. It was also consistent with prior reports. CBC on 06/15/17, showed white blood cell count of 4.1, hemoglobin of 7.4, hematocrit of 23, and platelets of 111. The patient does have history of chronic anemia and thrombocytopenia due to his liver disease. Serum alcohol on presentation was 145. Abdomen and pelvis CT obtained on 06/13/17, impression: "Small dependent left pleural effusion with associated atelectasis. Chronic liver morphology. Hepatic steatosis. Moderately large volume of ascites similar to prior CT. Fat and fluid containing umbilical hernia, new compared to the prior exam with inflammatory change, which may represent soft tissue infection or ischemia. Additionally, there is reticulation of the anterior abdominal wall fat on the right side from the costal margin extending up to 10 cm caudal suspicious for cellulitis. Acute or subacute mild anterior column compression fracture of T12 with approximately 30% loss of height at the anterior column. Nondisplaced fracture of the right 12th rib at the costovertebral junction. Negative for associated hematoma." Please note that this is a short summary of the patient's hospitalization. Please refer to further medical records for details. TIME SPENT: Approximately 45 minutes was spent on the patient's discharge. [id number]/[facility] #: [id number] [facility]
== END 2017-06-15 14:35 | disposition home health service (06) | DRG 383 ==
LOC: ED 15:22 → MED 20:14
PROVIDERS: ADMIT Internal Medicine; ATTEND Internal Medicine
PROC: 3E0234Z Introduction of Serum, Toxoid and Vaccine into Muscle, Percutaneous Approach (ICD-10-PCS; 2017-06-14)
PROC: 0W9G3ZZ Drainage of Peritoneal Cavity, Percutaneous Approach (ICD-10-PCS; principal; 2017-06-15 08:00)
DX: L03.311 Cellulitis of abdominal wall (principal); J18.9 Pneumonia, unspecified organism; R56.9 Unspecified convulsions; D69.59 Other secondary thrombocytopenia; K70.31 Alcoholic cirrhosis of liver with ascites; E83.42 Hypomagnesemia; M48.54XA Collapsed vertebra, not elsewhere classified, thoracic region, initial encounter for fracture; K42.9 Umbilical hernia without obstruction or gangrene; K70.40 Alcoholic hepatic failure without coma; K70.11 Alcoholic hepatitis with ascites; I10 Essential (primary) hypertension; J45.909 Unspecified asthma, uncomplicated; M17.0 Bilateral primary osteoarthritis of knee; F32.9 Major depressive disorder, single episode, unspecified; R40.2412 Glasgow coma scale score 13-15, at arrival to emergency department; E11.9 Type 2 diabetes mellitus without complications; F10.20 Alcohol dependence, uncomplicated; Y90.6 Blood alcohol level of 120-199 mg/100 ml; L98.499 Non-pressure chronic ulcer of skin of other sites with unspecified severity; D53.9 Nutritional anemia, unspecified; L72.3 Sebaceous cyst; R74.0 Nonspecific elevation of levels of transaminase and lactic acid dehydrogenase [LDH]; Z87.891 Personal history of nicotine dependence; Z88.8 Allergy status to other drugs, medicaments and biological substances; Z91.030 Bee allergy status; Z90.49 Acquired absence of other specified parts of digestive tract; Z23 Encounter for immunization
CPT/HCPCS: 36415; 49082; 71020; 74177; 80048; 80053; 80076; 80185; 80320; 81003; 82140; 82150; 83036; 83605; 83690; 83735; 83880; 85025; 85027; 85610; 86140; 87040; 87070; 87077; 87186; 87205; 87640; 87641; 90686; 93005; A9270-GY; G0480; J0690; J1644; J2543; J3475; Q9967

== ENCOUNTER 2017-06-26 17:06 | Inpatient (IN) | payer BC ==
[2017-06-26] MEDS ORDERED: NS 0.9% 1000 ML* 1,000 ML IV ONE ×2 (17:55→19:42)
--- NOTE | 2017-06-26 18:53 | RAD ---
HISTORY: Fall, trauma, history of hepatic failure COMPARISONS: April 28, 2017 TECHNIQUE: Multiple contiguous axial CT scans were obtained of the head without intravenous contrast. FINDINGS: HEMORRHAGE/INFARCT: There is no hemorrhage or acute infarct. MASSES/SHIFT: There is no mass or shift. EXTRA-AXIAL SPACES: There are no extra-axial fluid collections. SULCI AND VENTRICLES: The sulci and ventricles are normal in size and position for the patient's stated age. CEREBRUM: There is inferior frontal encephalomalacia bilaterally BRAINSTEM: There are no focal parenchymal abnormalities. CEREBELLUM: There are no focal parenchymal abnormalities. VESSELS: The vessels are grossly normal. PARANASAL SINUSES: The paranasal sinuses are clear. ORBITS: The orbits are unremarkable. BONES AND SOFT TISSUE: No bone or soft tissue abnormalities are noted. OTHER: None IMPRESSION: BILATERAL INFERIOR FRONTAL ENCEPHALOMALACIA, LIKELY REMOTE POSTTRAUMATIC. NO ACUTE INTRACRANIAL PATHOLOGY
--- NOTE | 2017-06-26 19:03 | ED ---
Rohini Garay Thomas, scribed for Piotr Yañez MD on 06/26/17 at 1801 . Dizziness - HPI Summary HPI Summary: The pt is a 62 y/o M with a Hx of cirrhosis presenting to the ED c/o dizziness that began last night and has been constant since. He describes the dizziness as about to fall down. The dizziness is aggravated by position change and is alleviated by nothing. Pt additionally c/o double vision and diarrhea ( yesterday and none today). He says that he fell this AM and may have hit is head. He thinks he may be dehydrated. He is low-sodium but not fluid- restricted. Pt denies near-syncope. His urine is straw-colored. Two of the patients medications were recently doubled in dosage. He has ascites and says that in the past he had paracentesis on an as needed basis, although his doctor is now scheduling drainage every two weeks. He last consumed alcohol ten days ago. PMHx: right subdural hematoma, alcoholic cirrhosis, DM. PSHx: craniotomy, cholecystectomy. SHx: former smoker, occasional alcohol use. - History Of Current Complaint Chief Complaint: EDDizziness Stated Complaint: DIZZY Time Seen by Provider: 06/26/17 17:35 Hx Obtained From: Patient Onset/Duration: Still Present - onset yesterday Timing: Constant Severity Initially: Moderate Aggravating Factor(s): Position Change Alleviating Factor(s): Nothing Associated Signs And Symptoms: Positive: Diarrhea, Other: - POS: double vision, fall, dehydration, straw-colored urine; NEG: near-syncope - Allergies/Home Medications Allergies/Adverse Reactions: Allergies Allergy/AdvReac Type Severity Reaction Status Date / Time Sertraline [From Zoloft] Allergy Mild Rash And Verified 06/26/17 17:10 Itching Lorazepam [From Ativan] AdvReac Mild Hallucinati Verified 06/26/17 17:10 ons BEES Allergy Mild Hives Uncoded 06/26/17 17:10 PMH/Surg Hx/FS Hx/Imm Hx Previously Healthy: No Endocrine/Hematology History: Reports: Hx Diabetes - elevated glucose after acute liver failure - diet controlled Denies: Hx Anticoagulant Therapy, Hx Thyroid Disease, Hx Anemia, Hx Unexplained Bleeding Cardiovascular History: Reports: Hx Hypercholesterolemia, Hx Hypertension Denies: Hx Aneurysm, Hx Angina, Hx Angioplasty, Hx Auto Implanted Cardiovert Defib, Hx Cardiac Arrest, Hx Cardiomegaly, Hx Congenital Heart Disease, Hx Congestive Heart Failure, Hx Coronary Artery Disease, Hx Deep Vein Thrombosis, Hx Embolism, Hx Hypotension, Hx Pacemaker/ICD, Hx Peripheral Vascular Disease, Hx Rheumatic Fever, Hx Syncope, Hx Valvular Heart Disease, Other Cardiovascular Problems/Disorders Respiratory History: Reports: Hx Asthma, Hx Chronic Bronchitis, Hx Seasonal Allergies - hay fever Denies: Hx Chronic Obstructive Pulmonary Disease (COPD), Hx Cystic Fibrosis, Hx Lung Cancer, Hx Pleural Effusion, Hx Pneumonia, Hx Pulmonary Edema, Hx Pulmonary Embolism, Hx Sleep Apnea, Other Respiratory Problems/Disorders GI History: Reports: Hx Cirrhosis, Hx Gall Bladder Disease, Hx Hiatal Hernia, Hx Ulcer Denies: Hx Crohn's Disease, Hx Diverticulosis, Hx Gastroesophageal Reflux Disease, Hx Gastrointestinal Bleed, Hx Irritable Bowel, Hx Jaundice, Hx Obstructive Bowel, Hx Ileostomy, Hx Pyloric Stenosis, Other GI Disorders History: Denies: Hx Dialysis, Hx Renal Disease Musculoskeletal History: Reports: Hx Arthritis - both knees, Hx Orthopedic Injury Denies: Hx Back Problems, Hx Bursitis, Hx Congenital Bone Abnormalities, Hx Fibromyalgia, Hx Gout, Hx Osteoporosis, Hx Scoliosis, Hx Tendonitis, Other Musculoskeletal History Sensory History: Reports: Hx Contacts or Glasses Denies: Hx Cataracts, Hx Eye Injury, Hx Eye Prosthesis, Hx Glaucoma, Hx Legally Blind, Hx Macular Degeneration, Hx Vision Problem, Hx Deafness, Hx Hearing Aid, Hx Hearing Problem, Other Sensory Impairments Opthamlomology History: Reports: Hx Contacts or Glasses Denies: Hx Cataracts, Hx Eye Injury, Hx Eye Prosthesis, Hx Glaucoma, Hx Legally Blind, Hx Macular Degeneration, Hx Vision Problem, Other Sensory Impairments Neurological History: Reports: Hx Headaches, Hx Seizures - 1 year ago, Other Neuro Impairments/Disorders - Subdural Hematoma Denies: Hx Dementia Psychiatric History: Reports: Hx Depression, Hx Substance Abuse - ETOH Denies: Hx Anxiety, Hx Attention Deficit Hyperactivity Disorder, Hx Eating Disorder, Hx Panic Disorder, Hx Post Traumatic Stress Disorder, Hx Inpatient Treatment, Hx Community Mental Health Tx, Hx Schizophrenia, Hx Bipolar Disorder , Hx Suicide Attempt, Hx of Violent Episodes Against Others, Other Psychiatric Issues/Disorders - Surgical History Surgery Procedure, Year, and Place: RIGHT ANKLE ORIF. LEFT KNEE TENDON REPAIR. CHOLECYSECTOMY. APPENDECTOMY. TONSILECTOMY Hx Anesthesia Reactions: No Infectious Disease History: No Infectious Disease History: Denies: Hx Clostridium Difficile, Hx Hepatitis, Hx Human Immunodeficiency Virus (HIV), Hx of Known/Suspected MRSA, Hx Shingles, Hx Tuberculosis, History Other Infectious Disease, Traveled Outside the [place] in Last 30 Days - Family History Known Family History: Negative: Cardiac Disease, Diabetes - Social History Alcohol Use: Weekly Alcohol Amount: 2-3 beers per pt report Hx Substance Use: No Substance Use Type: Reports: None Hx Tobacco Use: Yes Smoking Status (MU): Former Smoker Type: Cigarettes Length of Time of Smoking/Using Tobacco: 5 years Have You Smoked in the Last Year: No Review of Systems Negative: Fever Positive: Other - double vision Positive: other - POS: straw-colored urine Neurological: Other - POS: dizziness (onset yesterday night); NEG: near-syncope All Other Systems Reviewed And Are Negative: Yes Physical Exam - Summary Physical Exam Summary: The patient is well-nourished in mild distress and in no acute pain. The skin is warm and pale-looking and skin color reflects adequate perfusion. There is decreased skin turgor. HEENT: The head is normocephalic and atraumatic. The pupils are equal and reactive. The conjunctivae are without drainage. Sclera are somewhat icteric. Nares are patent and without drainage. Mouth reveals dry mucous membranes and the throat is without erythema and exudate. The external ears are intact. The ear canals are patent and without drainage. The tympanic membranes are intact. Neck is supple with full range of motion and non-tender. There are no carotid bruits. There is no neck vein distension. Respiratory: Chest is non-tender. Lungs are clear to auscultation and breath sounds are symmetrical and equal. Cardiovascular: Heart is tachycardic and regular rhythm. There is no murmur or rub auscultated. There is some peripheral edema and pulses are symmetrical and equal. Abdomen: The abdomen is soft and non-tender. There are normal bowel sounds heard in all four quadrants and there is no organomegaly palpated. The abdomen is distended and there is an infection on the umbilicus. Musculoskeletal: There is no back pain noted. Extremities are non-tender with full range of motion. There is good capillary refill. There is some edema of the lower extremities . There is no calf tenderness elicited. Neurological: Patient is alert and oriented to person, place and time. The patient has symmetrical motor strength in all four extremities. Cranial nerves are grossly intact. Deep tendon reflexes are symmetrical and equal in all four extremities. Psychiatric: The patient has an appropriate affect and does not exhibit any anxiety or depression. Triage Information Reviewed: Yes Vital Signs On Initial Exam: Initial Vitals Temp Pulse Resp BP Pulse Ox 97.8 F 74 16 197/151 97 06/26/17 17:09 06/26/17 17:09 06/26/17 17:09 06/26/17 17:09 06/26/17 17:09 Vital Signs Reviewed: Yes - Rippey Coma Scale Coma Scale Total: 15 Diagnostics - Vital Signs Vital Signs Temp Pulse Resp BP Pulse Ox 06/26/17 17:30 100/58 06/26/17 17:09 97.8 F 74 16 197/151 97 - Laboratory Lab Statement: Any lab studies that have been ordered have been reviewed, and results considered in the medical decision making process. - CT CT Brain CT Interpretation Completed By: Radiologist - CT Brain pending -- See [facility]. - EKG 18:20 Cardiac Rate: NL - 64 BPM EKG Interpretation: Sinus bradycardia, poor R wave progression, Nml axis. Dizzy Course/Dx - Course Assessment/Plan: The pt is a 62 y/o M with a Hx of cirrhosis presenting to the ED c/o dizziness that began last night and has been constant since. He describes the dizziness as about to fall down. The dizziness is aggravated by position change and is alleviated by nothing. Pt additionally c/o double vision and diarrhea (yesterday and none today). He says that he fell this AM and may have hit is head. He thinks he may be dehydrated. He is low-sodium but not fluid -restricted. Pt denies near-syncope. His urine is straw-colored. Two of the patients medications were recently doubled in dosage. He has ascites and says that in the past he had paracentesis on an as needed basis, although his doctor is now scheduling drainage every two weeks. He last consumed alcohol ten days ago. PMHx: right subdural hematoma, alcoholic cirrhosis, DM. PSHx: craniotomy, cholecystectomy. SHx: former smoker, occasional alcohol use. In the ED course the patient was given IV fluids. EKG shows sinus bradycardia, poor R wave progression, and normal axis. CT Brain pendingsee [facility]. The patient will signed off to Dr. Nieves at shift change pending CT Brain and dispo. He is stable. - Diagnoses Differential Diagnosis/HQI/PQRI: Hypovolemia, Other - hepatic encephalopathy, cerebral bleed, ascites Provider Diagnoses: Dehydration, Cirrhosis of liver with ascites Discharge - Discharge Plan Condition: Stable Disposition: OTHER Discharge Disposition Comment: Sign out to Dr. Nieves pending CT Brain and dispo. Referrals: Rosie Noriega MD [Primary Care Provider] - The documentation as recorded by the Rohini segundo Thomas accurately reflects the service I personally performed and the decisions made by , Piotr Yañez MD.
[2017-06-26 19:18] LABS: Mean Platelet Volume 7 um3 (7.4-10.4); White Blood Count 14.5 10^3/ul (3.5-10.8)
[2017-06-26 19:23] LABS: Hematocrit 16 % (42-52); Mean Corpuscular HGB Conc 31 g/dl (31-36); Mean Corpuscular Hemoglobin 31 pg (27-31); Mean Corpuscular Volume 100 fL (80-94); Red Blood Count 1.63 10^6/ul (4.0-5.4); Red Cell Distribution Width 24 % (10.5-15)
[2017-06-26 19:24] LABS: Add Diff/Slide Review? Slide Review Added; Comments Flag Yes
[2017-06-26 19:27] LABS: Hemoglobin 5.1 g/dl (14.0-18.0)
[2017-06-26 19:31] LABS: Troponin I 0.01 ng/mL (<0.04)
[2017-06-26 19:32] LABS: Ammonia 42 mol/L (16-53)
[2017-06-26 19:33] LABS: ALT 15 U/L (7-52); AST 36 U/L (13-39); Albumin 2.5 g/dL (3.2-5.2); Alkaline Phosphatase 184 U/L (34-104); Amylase 24 U/L (29-103); BUN/Creatinine Ratio 8.9 (8-20); Blood Urea Nitrogen 23 mg/dL (6-24); C Reactive Protein 17.41 mg/L (< 5.00); CO2 Carbon Dioxide 25 mmol/L (22-32); Calcium 8.2 mg/dL (8.6-10.3); Chloride 93 mmol/L (101-111); Creatine Kinase 145 U/L (10-223); EGFR African American 32.8 (>60); EGFR Non-African American 25.5 (>60); Globulin 3.6 g/dL (2-4); Glucose 155 mg/dL (70-100); Lipase 112 U/L (11.0-82.0); Sodium 127 mmol/L (133-145); Total Protein 6.1 g/dL (6.4-8.9)
[2017-06-26 19:34] LABS: Anion Gap 9 mmol/L (2-11); B Type Natriuretic Peptide 176 pg/mL; Potassium 5.7 mmol/L (3.5-5.0)
[2017-06-26 19:43] LABS: Hypochromasia 2+; Target Cells 1+
[2017-06-26] MEDS ORDERED: Morphine INJ* 2 MG/ML 1 ML SYRINGE (TWO MG - NEW SYRINGE VERSION) IV PRN (19:44)
[2017-06-26 19:57] LABS: Alcohol < 10 mg/dL (<10)
[2017-06-26] MEDS ORDERED: Pantoprazole IV* 80 MG in NS 0.9% 250 ML* 250 ML IVPB SCH (20:00)
[2017-06-26 20:01] LABS: Magnesium 1.8 mg/dL (1.9-2.7)
[2017-06-26] MEDS ORDERED: hydrOXYzine HCL TAB* 25 MG PO PRN (20:31)
[2017-06-26] MEDS ORDERED: Albuterol HFA INHALER* 8 gm MDI INH PRN (20:31)
[2017-06-26 20:41] LABS: Hematocrit 15 % (42-52)
[2017-06-26 20:43] LABS: Comments Flag Yes
[2017-06-26 20:47] LABS: Hemoglobin 4.7 g/dl (14.0-18.0)
[2017-06-26 20:54] LABS: Phenytoin 18.6 mcg/mL (10-20)
[2017-06-26] MEDS: Phenytoin CHEW TAB(*) 50 MG PO SCH (22:37)
[2017-06-26] MEDS: RiFAXimin* 550 MG TAB PO SCH (22:37)
[2017-06-26] MEDS: metroNIDAZOLE TAB* 250 MG PO SCH (22:38)
[2017-06-26] MEDS: traMADol TAB* 50 MG PO PRN (22:39)
[2017-06-26] MEDS: Gabapentin CAP(*) 300 MG PO SCH (22:39)
--- NOTE | 2017-06-27 00:15 | HP ---
CC: Dr. Rosie Noriega; Dr. Ferreira; Dr. Covarrubias * HISTORY AND PHYSICAL: DATE OF ADMISSION: 06/26/17 PRIMARY CARE PROVIDER: Dr. Rosie Noriega. CHIEF COMPLAINT: Dizzy. HISTORY OF PRESENT ILLNESS: Jarad Mata is a 62-year-old male with a history of alcoholic liver cirrhosis and alcohol withdrawal seizures as well as hypertension, asthma, and depression who was last hospitalized from 06/13/17 to 06/15/17 for abdominal wall cellulitis. He also had a paracentesis at that point. He was seen by Gastroenterology, consulted Dr. Ferreira, and his diuretics were increased significantly. He was discharged home on 100 mg of Aldactone and Lasix 80 mg daily. He stated that for the initial week, he did well at home. Apart from that, he fell once approximately 4 or 5 days prior to today's presentation. In addition to that, 3 days ago, he did have an episode of diarrhea, nausea, and vomiting that lasted approximately 24 hours and resolved by the time of today's admission. He stated that despite that that his bowel movements have normalized and he has not nauseated any more. He was very dizzy and weak and he came into the ED for evaluation. The patient also mentioned that when he had diarrhea and vomiting, he did not notice coffee-ground emesis. No hematemesis, no melena, and no bright red blood per rectum. When he fell 4 or 5 days ago, he fell on his left side and his left upper chest is still hurting. He stated that he did hit his head. On initial evaluation in the emergency department, his white blood cell count was noted to be 14 and his hemoglobin of 5.1 The patient's baseline hemoglobin is 7 to 8 due to chronic pancytopenia due to alcoholic liver cirrhosis. The patient also has elevation of creatinine of 2.5. He is going to be admitted to the telemetry monitored unit with the diagnosis of acute renal failure and anemia. PAST MEDICAL HISTORY: 1. History of alcoholic liver cirrhosis. 2. History of ascites with frequent paracentesis in the past. 3. History of subdural hematoma, in March of 2017, was posttraumatic after the patient fell while intoxicated. 4. History of alcohol abuse. 5. Hypertension. 6. Asthma. 7. Depression. 8. History of chronically elevated lactic acid at the level of approximately 3. 9. Hypomagnesemia. 10. History of seizures and alcohol withdrawal seizures. 11. Status post cholecystectomy. 12. History of appendectomy. 13. History of tonsillectomy. 14. History of ORIF of right ankle. CURRENT MEDICATIONS: Unchanged from admission apart from the Keflex that the patient was prescribed during his last hospital stay. He already finished the course and the medications include: 1. Albuterol inhaler 2 puffs every 4 hours p.r.n. 2. Vitamin B12 500 mcg daily. 3. Lexapro 10 mg daily. 4. Folic acid 1 mg daily. 5. Furosemide 80 mg daily. 6. Neurontin 300 mg b.i.d. 7. Lactulose 30 mL 3 times a day. The patient stopped his lactulose 2 days ago when he developed diarrhea. 8. Mag-Ox 800 mg daily. 9. Multivitamin 1 tablet daily. 10. Dilantin 200 mg nightly. 11. Propranolol 10 mg daily. 12. Rifaximin 550 mg b.i.d. 13. Aldactone 100 mg daily. 14. Thiamine 100 mg daily. 15. Hydroxyzine 25 mg b.i.d. p.r.n. 16. Ultram 50 mg every 6 hours p.r.n. For wound dressings to his umbilical hernia, he uses Xeroform. ALLERGIES: Include ZOLOFT, LORAZEPAM, and BEE STINGS. FAMILY HISTORY: Positive for mother with a stroke. SOCIAL HISTORY: The patient quit smoking over 30 years ago. Has a history of alcohol abuse and stated that for the past week, he just drank 1 can of beer. He denies drug use. He lives at home. He is currently in the process of being from his . His healthcare proxy is his sister, Cassandra Mata. REVIEW OF SYSTEMS: Please see history of present illness. In addition to the above mentioned, the patient stated that he was recommended to use a roller walker, but he uses it rarely only when he is "very weak." He had been using it for the past 24 hours. His fall 4 to 5 days ago occurred when he was not walking with a rolling walker. He denies losing consciousness. He said that he fell and he hit a door frame. He also hit his head. His ascites is slowly "filling up." He denies any leg edema. All the remaining 14 systems were reviewed with the patient and were otherwise negative. PHYSICAL EXAMINATION GENERAL: The patient is a very pleasant 62-year-old male who is in no acute distress. Alert, awake, and oriented x3. VITAL SIGNS: Blood pressure of , heart rate of 68 and regular, respiratory rate 18, oxygen saturation 97% on room air, temperature of 97.8. HEENT: Head: Atraumatic, normocephalic. Eyes: Pupils are equal and reactive to light and accommodation. Oropharynx is clear. Mucosa moist. NECK: Supple. No JVD, no bruits bilaterally. RESPIRATORY: Clear to auscultation bilaterally. CARDIOVASCULAR: Regular rate and rhythm. No murmur. ABDOMEN: Soft with ascites present. No hepatomegaly palpated. Abdomen is soft and nontender. Bowel sounds present in all 4 quadrants. There is a non- reducible umbilical hernia present with skin wound at the tip of the umbilical hernia of approximately 3 x 3 cm. The wound is approximately stage II to III with no evidence of infection. EXTREMITIES: There is trace bilateral ankle edema. Pulses are +2 bilaterally. No clubbing or cyanosis. NEURO EVALUATION: Speech clear. Cranial nerves II through XII are grossly intact. Motor strength is 5/5 bilaterally. DIAGNOSTIC STUDIES/LAB DATA: Showed sodium of 127, potassium 3.5, chloride 93 , carbon dioxide 25, BUN 22, creatinine 2.58. Liver function tests showed a total bilirubin of 3.2, AST of 36, ALT of 15, alkaline phosphatase of 184 which is chronic and consistent with prior. Total protein of 6.1, albumin of 2.5, globulin of 3.6. Lipase of 112. TSH was as obtained in January and that was 3.6. Brain natriuretic peptide was 176. Ammonia was 42. Magnesium was 1.8. Serum alcohol below detectable. Brain CT, impression: "Bilateral inferior frontal encephalomalacia. Likely remote posttraumatic. No acute intracranial pathology." The patient's stool Hemoccult is pending at the time of dictation. ASSESSMENT AND PLAN: 1. In regards to the patient's macrocytic anemia, the patient has a history of chronic pancytopenia and his baseline hemoglobin is at approximately 7 to 8. Today's hemoglobin is 5, but he has no complaints of bleeding. He did have an episode of diarrhea 2 days ago, but that resolved. He denied any melenic or bloody stools. At this point, it is possible that is a lab error. It is also possible that the patient fell 4 to 5 days ago and he had some kind of an internal bleeding. At this point, we will repeat the patient's hemoglobin and hematocrit level. If it in fact is at the level of 5, we will transfuse him 3 units of packed red blood cells. At this point, we will also CT scan his chest , abdomen, and pelvis. On rectal exam, the patient's stool was yellow. I doubt it would be heme positive. For the time being, there is no indication of gastrointestinal bleed. 2. In regards to the patient's acute renal failure, it is most likely a combination of dehydration and use of diuretics when the patient had nausea, vomiting, and diarrhea. I will hold the patient's diuretics and start intravenous hydration. The patient already received 2 boluses of intravenous fluids of 2 L total. At this point, I will continue very gentle hydration. 3. In regards to the patient's elevation of lactic acid, it is a little bit higher that is his baseline which is 3. After rehydration, we will repeat the lactic acid. Having said that, the patient does not appear to be toxic appearing and he is hemodynamically stable. 4. In regards to the patient's episode of diarrhea, it appears to have resolved. Nevertheless, the patient has history of being on Keflex and I would check stool for Clostridium difficile. 5. With history of alcoholic liver cirrhosis, at this point, the patient's bilirubin is slightly increased from his baseline, most likely due to hemoconcentration. I will continue the patient's lactulose. His ammonia is acceptable. 6. For history of alcohol use, thiamine and folate are going to be continued. The patient stated that his last can of beer he ingested approximately a week ago. I do not suspect he is going to be withdrawing. 7. In regards to the patient's DVT prophylaxis, that is contraindicated due the patient's low hemoglobin and evaluation for gastrointestinal bleed. We will place the patient on sequential compression devices. 8. The patient's code status is full. 9. Healthcare proxy is his sister as mentioned above. TIME SPENT: Approximately 71 minutes was spent on admission of this patient, more than half that time was spent in [id number] with the patient during the interview and physical exam. [id number]/[facility] #: [id number] [facility]
--- NOTE | 2017-06-27 04:24 | ED ---
Scott Garay Nikita, scribed for Jake Nieves MD on 06/27/17 at 0117 . Progress - Progress Note Progress Note: Brain CT, as read by radiologist, reveals BILATERAL INFERIOR FRONTAL ENCEPHALOMALACIA, LIKELY REMOTE POSTTRAUMATIC. NO ACUTE INTRACRANIAL PATHOLOGY. ED physician has reviewed this radiology report and agrees. Consulted Dr. Liu who accepts pt for admission. Course/Dx - Course Course Of Treatment: ADMIT HOSPITALIST. CRITICAL CARE TIME LESS THAN 30 MINUTES - Diagnoses Provider Diagnoses: Dehydration, Cirrhosis of liver with ascites, Anemia The documentation as recorded by the Scott segundo Nikita accurately reflects the service I personally performed and the decisions made by , Jake Nieves MD.
[2017-06-27] MEDS: traMADol TAB* 50 MG PO PRN ×3 (05:17→17:39)
[2017-06-27 05:55] LABS: Urine Bacteria Absent (Absent)
[2017-06-27 05:59] LABS: Urine Glucose N (Negative); Urine Nitrite N (Negative)
[2017-06-27 06:00] LABS: Urine Bilirubin 1+ (Negative)
[2017-06-27] MEDS ORDERED: NS 0.9% 1000 ML* 1,000 ML IV SCH (06:00)
[2017-06-27] MEDS ORDERED: Sodium Polystyrene ORAL.SOL* 15 GM/60 ML BTL PO ONE (07:59)
--- NOTE | 2017-06-27 08:05 | RAD ---
HISTORY: Trauma, anemia COMPARISONS: June 13, 2017 TECHNIQUE: Multiple contiguous axial CT scans were obtained of the chest, abdomen, and pelvis, without intravenous contrast enhancement. Coronal and sagittal multiplanar reformations are submitted for review.. Oral contrast was not administered. FINDINGS: The study is limited by the lack of intravenous contrast. This limits evaluation of the solid organs and vasculature. CHEST NECK AND THYROID: The lower neck and thyroid are unremarkable. CHEST WALL: There is no lower cervical, axillary, or supraclavicular lymphadenopathy by size criteria. There is bilateral maxillary. HEART AND PERICARDIUM: The heart is unremarkable. AORTA AND PULMONARY VASCULATURE: The aorta and pulmonary vasculature are normal. MEDIASTINUM: There is no mediastinal lymphadenopathy by size criteria. EDWARD: There is no hilar lymphadenopathy by size criteria. AIRWAY AND ESOPHAGUS: The airway is unremarkable, without endobronchial filling defect. The esophagus is grossly normal. LUNG PARENCHYMA: The lungs are clear. PLEURA: No pleural abnormalities are noted. BONES AND SOFT TISSUES: No bone or soft tissue abnormalities are noted. ABDOMEN/PELVIS: LIVER: The liver has a micronodular contour BILE DUCTS: There is no intrahepatic or extrahepatic biliary dilatation. GALLBLADDER: The gallbladder is not visualized. Surgical clips are noted in the gallbladder fossa. PANCREAS: The pancreas is normal, without mass or ductal dilatation. SPLEEN: Normal in size and appearance. UPPER GI TRACT: Evaluation of the gastrointestinal tract is limited by incomplete gastric distention. The upper GI tract is unremarkable. SMALL BOWEL \T\ MESENTERY: The small bowel is normal in contour, course, and caliber. There is no obstruction or dilatation. COLON: The colon is normal in contour, course, caliber. There is no pericolonic inflammatory change. ADRENALS: Normal bilaterally. KIDNEYS: The kidneys are normal in shape, size, contour, and axis. There is no hydronephrosis or nephrolithiasis. BLADDER: The bladder is smooth in contour. PELVIC ORGANS: The prostate gland is normal. The seminal vesicles are symmetric. There is a small right hydrocele. AORTA: There is calcific atherosclerotic disease of the abdominal aorta and its branches, without aneurysmal dilatation IVC: Unremarkable LYMPH NODES: There is no lymphadenopathy by size criteria. ABDOMINAL WALL: There is a large umbilical hernia containing mesenteric fat and ascites. BONES: Degenerative changes are noted. There is an age-indeterminate compression deformity of T12. OTHER: There is large amount of simple ascites. There is a small amount of hemoperitoneum along the spleen IMPRESSION: 1. SMALL AMOUNT OF HEMOPERITONEUM ADJACENT TO THE SPLEEN. PRELIMINARY FINDINGS WERE DISCUSSED WITH CARLI REA BY DR. FALK AT APPROXIMATELY 2:05 AM ON 2016 2. LARGE AMOUNT OF SIMPLE ASCITES. 3. CIRRHOTIC LIVER. 4. GYNECOMASTIA. 5. ATHEROSCLEROSIS. 6. LARGE UMBILICAL HERNIA CONTAINING FAT AND ASCITIC FLUID. 7. ATHEROSCLEROSIS
--- NOTE | 2017-06-27 08:06 | PN ---
Subjective Date of Service: 06/27/17 Interval History: Patient seen and examined at bedside. Patient reports upper left chest pain. He states he feels better s/p transfusion. Has not been out of bed yet. No further diarrhea. Good appetite and ate breakfast without difficulty. Family History: Unchanged from Admission Social History: Unchanged from Admission Past Medical History: Unchanged from Admission Objective Active Medications: Acetaminophen (Tylenol Tab*) 650 mg PO Q8H PRN Albuterol (Ventolin Hfa Inhaler*) 2 puff INH Q4H PRN Citalopram Hydrobromide (Celexa Tab*) 20 mg PO DAILY AILYN Cyanocobalamin (Vitamin B12 Tab*) 500 mcg PO DAILY AILYN Folic Acid (Folvite Tab*) 1 mg PO DAILY AILYN Gabapentin (Neurontin Cap(*)) 300 mg PO BID AILYN Hydroxyzine HCl (Atarax Tab*) 25 mg PO BID PRN Sodium Chloride (Ns 0.9% 1000 Ml*) 1,000 mls @ 75 mls/hr IV PER RATE AILYN Magnesium Oxide (Magox 400 Tab*) 800 mg PO DAILY AILYN Metronidazole (Flagyl Tab*) 500 mg PO TID AILYN Morphine Sulfate (Morphine Inj (Syringe)*) 1 mg IV Q4H PRN Multivitamins/Minerals (Theragran/Minerals Tab*) 1 tab PO DAILY AILYN Non-Formulary Medication (Wound Dressings [Xeroflo Dressing 2"X2"]) 1 pad TOPICAL DAILY AILYN Phenytoin Sodium (Dilantin Infatabs Chew Tab(*)) 200 mg PO BEDTIME AILYN Propranolol HCl (Inderal Tab*) 10 mg PO DAILY AILYN Rifaximin (Xifaxan*) 550 mg PO BID AILYN Sodium Polystyrene Sulfonate (Kayexalate Oral.Debbie*) 30 gm PO ONCE ONE Thiamine HCl (Vitamin B-1 Tab*) 100 mg PO DAILY AILYN Tramadol HCl (Ultram*) 50 mg PO Q6HR PRN 06/27/17 07:42 Temperature 98.2 F Pulse Rate 70 Respiratory 16 Rate Blood Pressure 104/48 (mmHg) O2 Sat by Pulse 96 Oximetry Oxygen Devices in Use Now: None Appearance: sitting up in bed, NAD Eyes: No Scleral Icterus Ears/Nose/Mouth/Throat: NL Teeth, Lips, Gums Neck: NL Appearance and Movements; NL JVP Respiratory: Symmetrical Chest Expansion and Respiratory Effort, Clear to Auscultation Cardiovascular: NL Sounds; No Murmurs; No JVD Abdominal: - - large protuberant; gauze at site of previous paracentesis. Extremities: - - 2+ edema. Skin: No Rash or Ulcers Neurological: Alert and Oriented x 3 Lines/Tubes/Other Access: Clean, Dry and Intact Peripheral IV Result Diagrams: 06/27/17 07:29 06/27/17 07:29 Assess/Plan/Problems-Billing Patient is a 62 y/o M w/ PMH of alcoholic liver cirrhosis and alcoholic withdrawal seizures with frequent admission who presented 4 days after a fall at home with dizziness and weakness found to have a hemoglobin of 4.7. - Patient Problems (1) Chronic blood loss anemia Comment: Patient responded well to 2 units of PRBCs (Hb 7.4). CT abd/pel shows hemoperitoneum adjacent to the spleen. Appreciate surgical consultation. No surgical intervention indicated at this point. Trend H/H q6h and transfuse PRN. INR is 1.6 so the drop in hemoglobin could be gradual. Stool guiac negative. (2) Renal failure, acute Comment: Creatinine remains at 2.5 and baseline 0.7. Diuretics were dramatically increased after last admission and creatinine has doubled. Most liekly due to N/V and diarrhea which has resolved. Continue gentle hydration and hold diuretics. (3) Alcoholic hepatitis with ascites Comment: Bilirubin is up from baseline but this might be due to hemoconcentration. Ammonia level acceptable and no sign of encephalopathy. Continue lactulose nad rifaximin. Diuretics on hold d/t renal failure. MELD is currently 30. Will revisit goals of care. Restart diuretics when able. No paracentesis indicated at this time. (4) Elevated lactic acid level Comment: Resolved after transfusion. (5) Alcohol abuse Comment: Will discuss readiness for treatment again vs palliative care. No S/S of acute withdrawal at this point. Continue MVI, folate, and thiamine. (6) Hepatic encephalopathy Comment: At baseline; Continue rifaximin and lactulose (7) Coagulopathy Comment: INR 1.6 from cirrhosis. Continue to monitor and transfuse blood products PRN. (8) DVT prophylaxis Comment: Hold in setting of acute anemia; SCDs only; INR 1.6 (9) Full code status Status and Disposition: Inpatient for Acute on chronic blood loss anemia and end stage liver disease. Discharge home when stable.
[2017-06-27 08:17] LABS: Hematocrit 21 % (42-52); Hemoglobin 7.2 g/dl (14.0-18.0); Mean Corpuscular HGB Conc 34 g/dl (31-36); Mean Corpuscular Hemoglobin 32 pg (27-31); Mean Corpuscular Volume 95 fL (80-94); Mean Platelet Volume 7 um3 (7.4-10.4); Red Blood Count 2.26 10^6/ul (4.0-5.4); Red Cell Distribution Width 20 % (10.5-15); White Blood Count 9.8 10^3/ul (3.5-10.8)
[2017-06-27 08:26] LABS: Albumin 2.3 g/dL (3.2-5.2); BUN/Creatinine Ratio 10.5 (8-20); Calcium 7.8 mg/dL (8.6-10.3); EGFR African American 31.7 (>60); EGFR Non-African American 24.6 (>60); Globulin 3.3 g/dL (2-4); Potassium 4.9 mmol/L (3.5-5.0); Total Bilirubin 4.2 mg/dL (0.2-1.0); Total Protein 5.6 g/dL (6.4-8.9)
[2017-06-27 08:31] LABS: Comments Flag Yes
[2017-06-27] MEDS: Propranolol TAB* 10 MG PO SCH (08:38)
[2017-06-27] MEDS: Multivitamins/Minerals TAB PO SCH (08:38)
[2017-06-27] MEDS: metroNIDAZOLE TAB* 250 MG PO SCH ×3 (08:38→20:34)
[2017-06-27] MEDS: Folic Acid TAB* 1 MG PO SCH (08:39)
[2017-06-27] MEDS: Magnesium Oxide TAB* 400 MG PO SCH (08:39)
[2017-06-27] MEDS: Citalopram TAB* 20 MG PO SCH (08:39)
[2017-06-27] MEDS: Cyanocobalamin TAB* 500 MCG PO SCH (08:39)
[2017-06-27] MEDS: RiFAXimin* 550 MG TAB PO SCH ×2 (08:39→20:35)
[2017-06-27] MEDS: Gabapentin CAP(*) 300 MG PO SCH ×2 (08:39→20:22)
[2017-06-27] MEDS: Thiamine TAB* 100 MG TAB PO SCH (08:40)
--- NOTE | 2017-06-27 09:39 | CONSULT ---
Consult Consult: Surgical consult dictated Imp/Plan: Anemia of chronic disease, long standing history of alcoholic cirrhosis. Questionable small area of hemoperitonium on CT, Hx of fall 5 days ago on his left side. No evidence of rib Fx CT reviewd with Dr. Covarrubias, doubt any splenic injury Monitor H/H q6H and INR daily, transfuse PRBCs whenever needed. No surgical indications at this time. Thank you for this consultation.
--- NOTE | 2017-06-27 13:13 | CONS ---
CC: Dr. Liu; Dr. Rosie Noriega * CONSULTATION REPORT: DATE OF CONSULT: 06/27/17 PATIENT OF: Dr. Diann Liu. REFERRED TO: Dr. Denis Covarrubias. (DICTATED BY DYLAN VILLAGOMEZ) PRIMARY CARE PROVIDER: Dr. Rosie Noriega. CHIEF COMPLAINT: Dizziness. REASON FOR CONSULTATION: Anemia and concern for splenic injury. HISTORY OF PRESENT ILLNESS: Mr. Mata is a pleasant 62-year-old male who is well known to us from prior multiple admissions related to his alcoholic liver cirrhosis and withdrawal seizure. The patient has a longstanding history of liver cirrhosis with consequent multiple paracenteses done due to his history of ascites. He was admitted yesterday with complaints of dizziness and was found to have a severe anemia with hemoglobin of 5, for which he had 3 units transfused overnight. The patient notes that he was in his usual state of health and gradually felt tired and dizzy over the past couple of days prior to his admission. He also reports sustaining a fall to his left side approximately 5 days prior to his admission but denies any head injury or syncope. He still has moderate amount of pain towards his left rib cage but denies any trouble breathing or abdominal pain. He was evaluated in the emergency room and had a CT scan of the chest, abdomen, and pelvis and was found to have an area of blood collection or hemoperitoneum adjacent to his spleen measuring approximately 2.5 cm, for which he was evaluated for possible splenic injury. The patient also had the usual moderate to large amount of abdominal ascites as well as incarcerated umbilical hernia, which we have seen him for in the past. He denies any pain around his hernia or nausea or vomiting. We were asked to see the patient for evaluation of his hemoperitoneum and possibility of splenic injury. PAST MEDICAL HISTORY: As mentioned above, significant for alcoholic liver cirrhosis with liver ascites and multiple frequent paracenteses done in the past , most recently 2 weeks ago. He also has a history of subdural hematoma in March of this year, it was posttraumatic after he sustained a fall while intoxicated. He also has a history of alcohol abuse, hypertension, asthma, depression, chronically elevated lactic acid, hypomagnesemia, history of seizure , and alcohol withdrawal symptoms. PAST SURGICAL HISTORY: Significant for laparoscopic cholecystectomy, appendectomy, tonsillectomy, and history of ORIF of the right ankle due to fracture. CURRENT MEDICATIONS: Unchanged from prior admission and it includes: 1. Albuterol inhaler 2 puffs every 4 hours as needed for shortness of breath. 2. Vitamin B12 500 mcg daily. 3. Lexapro 10 mg daily. 4. Folic acid 1 mg daily. 5. Lasix 80 mg daily. 6. Neurontin 300 mg b.i.d. 7. Lactulose 30 mL 3 times a day. 8. Mag oxide 800 mg daily. 9. Multivitamin 1 tablet daily. 10. Dilantin 200 mg q.h.s. 11. Propranolol 10 mg p.o. daily. 12. Rifaximin 550 mg b.i.d. 13. Aldactone 100 mg daily. 14. Thiamine 100 mg daily. 15. Hydroxyzine 25 mg b.i.d. p.r.n. 16. Ultram 50 mg every 6 hours as needed for pain. ALLERGIES: He is allergic to ZOLOFT, LORAZEPAM, and BEE STINGS. FAMILY HISTORY: Positive for mother with history of stroke. SOCIAL HISTORY: The patient quit smoking over 30 years ago. He has a history of alcohol abuse and he continued to drink but notes that over the past week he only had 1 can of beer. He is currently in the process of being from his and healthcare proxy is his sister [place]. REVIEW OF SYSTEMS: See HPI, otherwise negative. He denies any headache, dizziness, blurred vision, or double vision. No chest pain, shortness of breath , or palpitation. He does admit to left upper rib cage pain related to a fall 5 days ago but denies any difficulty breathing or pain with deep inhalation. He denies abdominal pain, nausea, vomiting, changes to his incarcerated umbilical hernia or changes in bowel movements. No flank pain, hematuria, dysuria, or urinary frequency. No fever, chills, night sweats, or recent weight loss. PHYSICAL EXAM: General: He is a pleasant, obese, middle-aged gentleman, appears comfortable at the time of consultation. Vitals: Most recent set of vitals revealed a temperature of 98.2, pulse of 76, respirations of 16, O2 sat 96% on room air, and blood pressure of 104/48. HEENT: Sclerae anicteric. PERRLA. EOMs intact. Oropharynx pink and moist with no exudate. Neck: Supple. Trachea midline. No cervical adenopathy or thyromegaly. Lungs: Clear to auscultation bilaterally. Heart: Regular rate and rhythm. Normal S1 and S2 without rubs, murmurs, or gallops. Back: With normal curvature, no CVA tenderness. Abdomen: Firm and largely distended. There is large unchanged incarcerated umbilical hernia noted that was nontender on palpation. No ecchymosis noted to his left chest wall and rib cage area. There is very mild tenderness noted to mid axillary line approximately of the level of 4 or 5 ribs but again there was no swelling or ecchymosis noted. No tenderness was noted throughout the abdomen. There is no guarding, rigidity, or rebound tenderness. Extremities: Without cyanosis, clubbing, or edema. Neurologic: Grossly intact. Rectal: Exam deferred at this time. LABORATORY WORKUP: As mentioned above, the patient was admitted with a hemoglobin of 5.1 and hematocrit of 16 that was corrected to 7.2 and 21 respectively after he got 3 units of packed red blood cells overnight, his platelet count today is 144, white count of 9800. His coagulation showed an INR of 1.6 and chemistry with sodium of 128, potassium 4.9, chloride of 97, CO2 28, BUN 28, creatinine 2.6, and lactic acid of 1.5. His LFTs basically unchanged from his average, total bilirubin is 4.2, alk phos is 165, AST and ALT are 36 and 15 respectively. ACCESSORY DIAGNOSTIC DATA: As mentioned above, CT scan was done and reviewed with Dr. Covarrubias and it revealed a small amount of hemoperitoneum adjacent to the spleen. There is a large amount of simple ascites with cirrhotic liver and large incarcerated umbilical hernia unchanged from prior exam. IMPRESSION: A 62-year-old gentleman with longstanding history of alcoholic liver cirrhosis with multiple paracenteses for his ascites who sustained a fall 5 days ago and was admitted with anemia and questionable splenic injury on a CT scan yesterday. PLAN: The case was discussed with Dr. Covarrubias and the CT scan was reviewed and at this point, we highly doubt any evidence of splenic injury given his fall. There was no evidence also of any rib fracture on the CT scan as well. He has been clinically stable after 3 units transfused overnight and we recommend monitor hemoglobin and hematocrit level every 6 hours as well as INR daily and transfuse as needed. Again, we will keep close observation on him but at this time he appears to be stable with no evidence of splenic injury per se and no surgical indication at this time. I will run over the case again with Dr. Covarrubias to see if there is any other recommendation. DYLAN VILLAGOMEZ [id number]/[facility] #: [id number] MARILUZ
[2017-06-27 15:00] LABS: Hematocrit 21 % (42-52); Hemoglobin 7.1 g/dl (14.0-18.0)
[2017-06-27 20:26] LABS: Hematocrit 22 % (42-52); Hemoglobin 7.3 g/dl (14.0-18.0)
[2017-06-27] MEDS: Phenytoin CHEW TAB(*) 50 MG PO SCH (20:34)
[2017-06-28 06:06] LABS: Hematocrit 21 % (42-52); Mean Corpuscular HGB Conc 34 g/dl (31-36); Mean Corpuscular Hemoglobin 32 pg (27-31); Mean Corpuscular Volume 95 fL (80-94); Mean Platelet Volume 7 um3 (7.4-10.4); Red Blood Count 2.18 10^6/ul (4.0-5.4); Red Cell Distribution Width 21 % (10.5-15); White Blood Count 6.3 10^3/ul (3.5-10.8)
[2017-06-28 06:30] LABS: BUN/Creatinine Ratio 14.7 (8-20); Calcium 7.7 mg/dL (8.6-10.3); EGFR African American 50.7 (>60); EGFR Non-African American 39.4 (>60); Potassium 4.5 mmol/L (3.5-5.0)
[2017-06-28] MEDS: Propranolol TAB* 10 MG PO SCH (08:35)
[2017-06-28] MEDS: RiFAXimin* 550 MG TAB PO SCH ×2 (08:36→21:37)
[2017-06-28] MEDS: metroNIDAZOLE TAB* 250 MG PO SCH (08:36)
[2017-06-28] MEDS: Magnesium Oxide TAB* 400 MG PO SCH (08:36)
[2017-06-28] MEDS: Phenytoin CHEW TAB(*) 50 MG PO SCH ×2 (08:36→21:38)
[2017-06-28] MEDS: Folic Acid TAB* 1 MG PO SCH (08:37)
[2017-06-28] MEDS: Multivitamins/Minerals TAB PO SCH (08:37)
[2017-06-28] MEDS: Citalopram TAB* 20 MG PO SCH (08:37)
[2017-06-28] MEDS: Gabapentin CAP(*) 300 MG PO SCH ×2 (08:37→21:37)
[2017-06-28] MEDS: Thiamine TAB* 100 MG TAB PO SCH (08:38)
[2017-06-28] MEDS: Cyanocobalamin TAB* 500 MCG PO SCH (08:38)
[2017-06-28] MEDS: Acetaminophen TAB* 325 MG PO PRN (08:57)
--- NOTE | 2017-06-28 12:34 | PN ---
Progress Note - Progress Note Date of Service: 06/28/17 Note: Surgery Progress: S: c/o SOB; variable abd pain (he is not able to give concise or coherent answers to most of my questions) O: Vital Signs - 8 hr 06/28/17 06/28/17 06/28/17 07:35 08:00 08:37 Temperature 98.4 F Pulse Rate 76 Respiratory 16 16 16 Rate Blood Pressure 108/59 (mmHg) O2 Sat by Pulse 93 Oximetry 06/28/17 09:30 Temperature 98.4 F Pulse Rate 78 Respiratory 16 Rate Blood Pressure 110/60 (mmHg) O2 Sat by Pulse 95 Oximetry Abd: obese; + ascites; soft, nontender to palp; umb hernia w/ skin ulceration ( measures ~ 3 x 5 cm); small amt yellow/green drainage on dsg; sm amt bleeding upon dsg removal; no evidence of active infection of wound; redressed w/ Xeroform and ABD. Labs: Laboratory Results - last 24 hr 06/27/17 06/27/17 06/28/17 14:35 20:20 05:13 WBC RBC Hgb 7.1 L 7.3 L Hct 21 L 22 L MCV MCH MCHC RDW Plt Count MPV Neut % (Auto) Lymph % (Auto) [place] % (Auto) Eos % (Auto) Baso % (Auto) Absolute Neuts (auto) Absolute Lymphs (auto) Absolute Monos (auto) Absolute Eos (auto) Absolute Basos (auto) Absolute Nucleated RBC Nucleated RBC % INR (Anticoag Therapy) 1.48 H Sodium Potassium Chloride Carbon Dioxide Anion Gap BUN Creatinine Est GFR ( Amer) Est GFR (Non-Af Amer) BUN/Creatinine Ratio Glucose Calcium 06/28/17 06/28/17 05:37 05:37 WBC 6.3 RBC 2.18 L Hgb 7.0 L Hct 21 L MCV 95 H MCH 32 H MCHC 34 RDW 21 H Plt Count 115 L MPV 7 L Neut % (Auto) 55.2 Lymph % (Auto) 22.2 L [place] % (Auto) 16.1 H Eos % (Auto) 5.9 Baso % (Auto) 0.6 Absolute Neuts (auto) 3.5 Absolute Lymphs (auto) 1.4 Absolute Monos (auto) 1.0 H Absolute Eos (auto) 0.4 Absolute Basos (auto) 0 Absolute Nucleated RBC 0.01 Nucleated RBC % 0.1 INR (Anticoag Therapy) Sodium 132 L Potassium 4.5 Chloride 101 Carbon Dioxide 26 Anion Gap 5 BUN 26 H Creatinine 1.77 H Est GFR ( Amer) 50.7 Est GFR (Non-Af Amer) 39.4 BUN/Creatinine Ratio 14.7 Glucose 111 H Calcium 7.7 L A: intra-abd bleed (2/2 fall?); appears to be stable by serial H&H and exam umb hernia w/ skin ulceration, improved by his report P: cont wound care to umbilicus; no current surgical intervention req'd; recall prn
[2017-06-28 14:38] LABS: Albumin 2.2 g/dL (3.2-5.2); Direct Bilirubin 1.3 mg/dL (0.03-0.18); Globulin 3.2 g/dL (2-4); Indirect Bilirubin 1.3 mg/dL (0.3-1.0); Total Bilirubin 2.6 mg/dL (0.2-1.0); Total Protein 5.4 g/dL (6.4-8.9)
--- NOTE | 2017-06-28 15:09 | PN ---
Subjective Date of Service: 06/28/17 Interval History: Patient seen this afternoon. Reports feeling better in terms of "getting my wits about me". Feels abdomen is very distended causing SOB. Asking for paracentesis. Family History: Unchanged from Admission Social History: Unchanged from Admission Past Medical History: Unchanged from Admission Objective Active Medications: Acetaminophen (Tylenol Tab*) 650 mg PO Q8H PRN Albuterol (Ventolin Hfa Inhaler*) 2 puff INH Q4H PRN Citalopram Hydrobromide (Celexa Tab*) 20 mg PO DAILY AILYN Cyanocobalamin (Vitamin B12 Tab*) 500 mcg PO DAILY AILYN Folic Acid (Folvite Tab*) 1 mg PO DAILY AILYN Gabapentin (Neurontin Cap(*)) 300 mg PO BID AILYN Hydroxyzine HCl (Atarax Tab*) 25 mg PO BID PRN Magnesium Oxide (Magox 400 Tab*) 800 mg PO DAILY AILYN Metronidazole (Flagyl Tab*) 500 mg PO TID AILYN Morphine Sulfate (Morphine Inj (Syringe)*) 1 mg IV Q4H PRN Multivitamins/Minerals (Theragran/Minerals Tab*) 1 tab PO DAILY AILYN Phenytoin Sodium (Dilantin Infatabs Chew Tab(*)) 200 mg PO BEDTIME AILYN Phenytoin Sodium (Dilantin Infatabs Chew Tab(*)) 100 mg PO QAM AILYN Propranolol HCl (Inderal Tab*) 10 mg PO DAILY AILYN Rifaximin (Xifaxan*) 550 mg PO BID AILYN Thiamine HCl (Vitamin B-1 Tab*) 100 mg PO DAILY AILYN Tramadol HCl (Ultram*) 50 mg PO Q6HR PRN Vital Signs 06/27/17 06/27/17 06/27/17 15:39 15:40 17:39 Temperature 98.5 F Pulse Rate 72 72 Respiratory 20 22 Rate Blood Pressure 95/40 (mmHg) O2 Sat by Pulse 96 Oximetry 06/28/17 06/28/17 06/28/17 09:30 10:37 12:34 Temperature 98.4 F 97.8 F Pulse Rate 78 80 Respiratory 16 17 18 Rate Blood Pressure 110/60 112/70 (mmHg) O2 Sat by Pulse 95 Oximetry Oxygen Devices in Use Now: None Appearance: Middle-aged, M, laying in bed in NAD Eyes: No Scleral Icterus Ears/Nose/Mouth/Throat: Mucous Membranes Moist Neck: NL Appearance and Movements; NL JVP Respiratory: Symmetrical Chest Expansion and Respiratory Effort, Clear to Auscultation Cardiovascular: NL Sounds; No Murmurs; No JVD, RRR Abdominal: - - Soft, distended, +ascites, anterior hernia with dressing place, c /d/i, wound does not appear infected, xeroform in place Lymphatic: No Cervical Adenopathy Extremities: - - Trace LE edema Skin: No Rash or Ulcers Neurological: - - Alert, oriented, no focal deficits Result Diagrams: 06/28/17 05:37 06/28/17 05:37 Microbiology and Other Data: Microbiology 06/26/17 20:00 Stool Occult Blood (DELFINO) - Final Stool Assess/Plan/Problems-Billing Patient is a 62 y/o M w/ PMH of alcoholic liver cirrhosis and alcoholic withdrawal seizures with frequent admission who presented 4 days after a fall at home with dizziness and weakness found to have a hemoglobin of 4.7 and hemoperitoneum on imaging - Patient Problems (1) Anemia Current Visit: No Comment: Acute blood loss, hemoperitoneum. Continue trend H/ H, borderline this morning. Transfuse for Hb<7. Appreciate surgery assistance. (2) Renal failure, acute Current Visit: Yes Comment: Most likely due to N/V and diarrhea which has resolved. Creatinine trending back down. Diuretics were dramatically increased after last admission. Holding diuretics for today. (3) Cirrhosis Current Visit: No Comment: Continue rifaximin, lactulose. Holding diuretics for today. Bilirubin trending down. Spoke with Dr. Covarrubias who may perform paracentesis tomorrow. (4) Alcohol abuse Current Visit: No Comment: No S/S of acute withdrawal at this point. Continue MVI, folate, and thiamine. Reports last drink was 3 weeks ago. (5) DVT prophylaxis Current Visit: No Comment: SCDs only; INR 1.6 Status and Disposition: Inpatient for Acute on chronic blood loss anemia and end stage liver disease. Discharge home when stable.
[2017-06-28 16:02] LABS: Hematocrit 23 % (42-52); Hemoglobin 7.5 g/dl (14.0-18.0)
[2017-06-28 16:09] LABS: Comments Flag Yes
[2017-06-29 05:38] LABS: Hematocrit 23 % (42-52); Hemoglobin 7.4 g/dl (14.0-18.0); Mean Corpuscular HGB Conc 33 g/dl (31-36); Mean Corpuscular Hemoglobin 32 pg (27-31); Mean Corpuscular Volume 97 fL (80-94); Mean Platelet Volume 7 um3 (7.4-10.4); Red Blood Count 2.33 10^6/ul (4.0-5.4); Red Cell Distribution Width 22 % (10.5-15); White Blood Count 4.6 10^3/ul (3.5-10.8)
[2017-06-29 05:44] LABS: Albumin 2.2 g/dL (3.2-5.2); BUN/Creatinine Ratio 16.2 (8-20); Calcium 7.8 mg/dL (8.6-10.3); EGFR African American 86.9 (>60); EGFR Non-African American 67.6 (>60); Globulin 3.3 g/dL (2-4); Potassium 4.4 mmol/L (3.5-5.0); Total Bilirubin 2.3 mg/dL (0.2-1.0); Total Protein 5.5 g/dL (6.4-8.9)
[2017-06-29] MEDS ORDERED: Lidocaine 1% INJ* 10 MG/ML 30 ML SDV ONE (08:15)
[2017-06-29 09:22] LABS: Body Fluid Appearance Bloody
[2017-06-29 09:24] LABS: Body Fluid WBC 291 /mcL
[2017-06-29 10:39] LABS: Body Fluid Total Cells Counted 100
[2017-06-29] MEDS: Acetaminophen TAB* 325 MG PO PRN (11:04)
[2017-06-29] MEDS: Magnesium Oxide TAB* 400 MG PO SCH (11:04)
[2017-06-29] MEDS: Gabapentin CAP(*) 300 MG PO SCH ×2 (11:05→21:22)
[2017-06-29] MEDS: Phenytoin CHEW TAB(*) 50 MG PO SCH ×2 (11:05→21:22)
[2017-06-29] MEDS: Citalopram TAB* 20 MG PO SCH (11:06)
[2017-06-29] MEDS: RiFAXimin* 550 MG TAB PO SCH ×2 (11:06→21:22)
[2017-06-29] MEDS: Cyanocobalamin TAB* 500 MCG PO SCH (11:06)
[2017-06-29] MEDS: Folic Acid TAB* 1 MG PO SCH (11:06)
[2017-06-29] MEDS: Propranolol TAB* 10 MG PO SCH (11:06)
[2017-06-29] MEDS: Multivitamins/Minerals TAB PO SCH (11:06)
[2017-06-29] MEDS: Thiamine TAB* 100 MG TAB PO SCH (11:07)
--- NOTE | 2017-06-29 11:14 | PN ---
Subjective Date of Service: 06/29/17 Interval History: Patient seen this morning after paracentesis and again on the floor. Had some light-headedness post-procedure but VSS, this resolved. Currently reports feeling much improved in terms of abdominal discomfort and SOB. Nursing noted some twitching/asterixis and patient reports he stopped taking Lactulose a few days prior to admission and has been off of it here. Open to meeting. Family History: Unchanged from Admission Social History: Unchanged from Admission Past Medical History: Unchanged from Admission Objective Active Medications: Acetaminophen (Tylenol Tab*) 650 mg PO Q8H PRN Albuterol (Ventolin Hfa Inhaler*) 2 puff INH Q4H PRN Citalopram Hydrobromide (Celexa Tab*) 20 mg PO DAILY AILYN Cyanocobalamin (Vitamin B12 Tab*) 500 mcg PO DAILY AILYN Folic Acid (Folvite Tab*) 1 mg PO DAILY AILYN Gabapentin (Neurontin Cap(*)) 300 mg PO BID AILYN Hydroxyzine HCl (Atarax Tab*) 25 mg PO BID PRN Lactulose (Lactulose*) 15 ml PO TID AILYN Magnesium Oxide (Magox 400 Tab*) 800 mg PO DAILY AILYN Morphine Sulfate (Morphine Inj (Syringe)*) 1 mg IV Q4H PRN Multivitamins/Minerals (Theragran/Minerals Tab*) 1 tab PO DAILY AILYN Phenytoin Sodium (Dilantin Infatabs Chew Tab(*)) 200 mg PO BEDTIME AILYN Phenytoin Sodium (Dilantin Infatabs Chew Tab(*)) 100 mg PO QAM AILYN Propranolol HCl (Inderal Tab*) 10 mg PO DAILY AILYN Rifaximin (Xifaxan*) 550 mg PO BID AILYN Thiamine HCl (Vitamin B-1 Tab*) 100 mg PO DAILY AILYN Tramadol HCl (Ultram*) 50 mg PO Q6HR PRN Vital Signs 06/28/17 06/28/17 06/28/17 12:34 15:17 20:00 Temperature 97.8 F 98.5 F Pulse Rate 80 66 Respiratory 18 16 16 Rate Blood Pressure 112/70 106/55 (mmHg) O2 Sat by Pulse 96 Oximetry 06/29/17 06/29/17 06/29/17 09:40 09:45 10:25 Temperature 98.7 F Pulse Rate 65 68 71 Respiratory 16 16 16 Rate Blood Pressure 125/62 122/57 114/54 (mmHg) O2 Sat by Pulse 100 99 97 Oximetry Oxygen Devices in Use Now: None Appearance: Middle-aged, M, laying in bed in NAD Eyes: No Scleral Icterus Ears/Nose/Mouth/Throat: Mucous Membranes Moist Neck: NL Appearance and Movements; NL JVP Respiratory: Symmetrical Chest Expansion and Respiratory Effort, Clear to Auscultation Cardiovascular: NL Sounds; No Murmurs; No JVD, RRR Abdominal: - - Soft, distended (improved), BS+, anterior and lateral dressings in place Lymphatic: No Cervical Adenopathy Extremities: No Edema Skin: No Rash or Ulcers Neurological: Alert and Oriented x 3, - - asterixis, no confusion/lethargy Result Diagrams: 06/29/17 05:05 06/29/17 05:05 Microbiology and Other Data: Microbiology 06/26/17 20:00 Stool Occult Blood (DELFINO) - Final Stool Assess/Plan/Problems-Billing Patient is a 62 y/o M w/ PMH of alcoholic liver cirrhosis and alcoholic withdrawal seizures with frequent admission who presented 4 days after a fall at home with dizziness and weakness found to have a hemoglobin of 4.7 and hemoperitoneum on imaging - Patient Problems (1) Anemia Current Visit: No Comment: Acute blood loss, hemoperitoneum. Hb has remained stable. Appreciate surgery assistance. (2) Renal failure, acute Current Visit: Yes Comment: Most likely due to N/V and diarrhea which has resolved. Creatinine normalized. (3) Cirrhosis Current Visit: No Comment: S/P paracentesis this morning, 4.5L blood-tinged fluid. Continue rifaximin. Restart Lactulose. Restart diuretics at lower dose. PC consult placed. (4) Alcohol abuse Current Visit: No Comment: No S/S of acute withdrawal at this point. Continue MVI, folate, and thiamine. Reports last drink was 3 weeks ago. (5) DVT prophylaxis Current Visit: No Comment: SCDs Status and Disposition: Inpatient for Acute on chronic blood loss anemia and end stage liver disease. Likely discharge tomorrow.
[2017-06-29] MEDS: Spironolactone TAB* 25 MG PO SCH (13:17)
[2017-06-29] MEDS: Lactulose* 15 ML UDC PO SCH ×3 (13:17→21:21)
--- NOTE | 2017-06-29 15:20 | CONS ---
CC: Dr. Rosie Noriega; Leidy Diaz NP* PALLIATIVE CARE CONSULTATION REPORT: DATE OF CONSULTATION: 06/29/17 PRIMARY CARE PHYSICIAN: Dr. Rosie Noriega. REFERRING PHYSICIAN: Leidy Diaz NP REASON FOR CONSULTATION: Evaluation for hospice. HOSPITAL COURSE: This is a 62-year-old male with a past medical history of alcoholic liver cirrhosis with recurrent paracentesis and recurrent admissions, who presents to the emergency room on the with feeling dizzy. The patient states he had a recent GI illness with vomiting and diarrhea. He was not feeling well. He was taking his diuretics and was feeling very lightheaded and dizzy and had a recent fall. On arrival to the emergency room, he was noted to have a low H and H and elevated creatinine of 2.5. He had a CAT scan done on admission that showed a small amount of hemoperitoneum adjacent to the spleen. Preliminary findings were discussed with the physician on-call. Large amount of simple ascites, cirrhotic liver, gynecomastia, atherosclerosis and large umbilical hernia containing fat and ascitic fluid. Patient was consulted by Surgery for his hemoperitoneum and his large volume ascites. Patient was transfused and he had a paracentesis. Aspirated fluid was sent for cytology. Patient's vomiting and diarrhea have improved. He states that dizziness has resolved. He states his last alcoholic drink was 4 weeks ago from yesterday the , which was just prior to his last admission. He denies any pain other than the pain in his knee, which is chronic from arthritis. He has no stomach complaints, no shortness of breath, no chest pain. He has not had a bowel movement yet today. He states he does have a lot of unsteadiness and physical therapy has helped him in the past. He fell at home when he was not using his walker. Normally he is supposed to be using a walker. When discussing again regarding his alcohol use, he states that he understands that if he drinks that he is going to and he had 1 beer 4 weeks ago and realized he did not want to be back in the hospital and stopped after that. He is still going to AA. He has not followed up on outpatient rehab yet, but he is still interested. Otherwise, remainder of review of systems is negative. PAST MEDICAL HISTORY: 1. Alcoholic liver cirrhosis. 2. History of ascites with frequent paracentesis. 3. History of subdural hematoma in 2017, posttraumatic, after patient was intoxicated. 4. History of alcohol abuse. 5. Hypertension. 6. Asthma. 7. Depression. 8. History of hypomagnesemia. 9. History of seizures related to alcohol withdrawal. PAST SURGICAL HISTORY: 1. History of status post cholecystectomy. 2. Appendectomy. 3. History of tonsillectomy. 4. History of ORIF of the right ankle. INPATIENT MEDICATIONS: 1. Tylenol 650 mg every 8 hours as needed. 2. Albuterol q.4 hours as needed. 3. Citalopram 20 mg daily. 4. Cyanocobalamin 500 mcg daily. 5. Folic acid 1 mg daily. 6. Lasix 40 mg daily. 7. Gabapentin 300 mg p.o. b.i.d. 8. Lactulose 15 mL p.o. t.i.d. 9. Magnesium oxide 100 mg p.o. daily. 10. Morphine 1 mg IV q.4 hours as needed. 11. Multivitamin daily. 12. Phenytoin chew 200 mg p.o. at bedtime and 100 mg in the morning. 13. Propranolol 10 mg daily. 14. Rifaximin 550 mg p.o. b.i.d. 15. Spironolactone 25 mg p.o. daily. 16. Thiamine 100 mg daily. 17. Hydroxyzine 25 mg p.o. b.i.d. as needed. 18. Tramadol 50 mg q.6 hours as needed. ALLERGIES: SERTRALINE develops rash and itching; LORAZEPAM, difficulty breathing; and BEES, hives. FAMILY HISTORY: Positive for mother with a stroke. SOCIAL HISTORY: The patient lives at home. He is currently in the process of being from his . Quit smoking over 30 years ago. History of alcohol abuse. He states his last alcoholic beverage was about 4 weeks ago when he drank 1 can of beer. His healthcare proxy remains his sister, Cassandra Mata. Code status was discussed. He remains a full code. He is getting VNS services coming on to the house. REVIEW OF SYSTEMS: A 14-point review of systems reviewed as mentioned in the HPI. Pertinent positives and negatives as mentioned in the HPI, otherwise negative. PHYSICAL EXAMINATION: Vitals: Temp 98.5, pulse rate 60, respiratory rate 16, oxygen saturation 96% on room air, blood pressure 124/63. General: No acute distress. Resting comfortably. HEENT: Head normocephalic. Pupils are equal and reactive, anicteric. Oropharynx: Mucous membranes are moist. Neck: Supple, no lymphadenopathy. No nuchal rigidity. Cardiac: Regular rate and rhythm. No murmurs, rubs or gallops. Respiratory: Diminished breath sounds. No wheezing, rhonchi, or rales. Abdomen: Morbidly obese. Slight fluid wave, nontender. No rebound or guarding. He had bandage over his abdomen, it is clean, dry, and intact. Extremities: Trace pretibial edema. Neurological: Alert and oriented x3. No focal neurologic deficits. LABORATORY DATA: White count 4.6, hemoglobin 7.4, hematocrit 23, platelets 116, 000. INR is 1.37. Sodium 135, potassium 4.4, chloride 104, bicarb 28, BUN 18, creatinine 1.11. Total bili is 2.3, AST 49, ALT 16, albumin is 2.2. His alcohol level on admission was less than 10. ASSESSMENT: This is a 62-year-old male with a past medical history of alcoholic liver cirrhosis, who presents to the emergency room after having gastroenteritis, dizziness, recent fall, found to be in acute renal failure with a hemoperitoneum, status post paracentesis with improvement of his acute renal failure. The patient seems to have discontinued alcohol use since his last admission, which was earlier this month. He is continuing with AA. I encouraged him to follow up with outpatient rehab. He understands the consequences of his drinking and that he will if he continues to drink. He is interested in getting outpatient physical therapy as this has helped him in the past. The patient is not eligible for path referral or hospice at this time. I discussed if he gets readmitted for further complications, then I am happy to come back and see him and reevaluate him. Thank you for this consultation. TIME SPENT: Greater than 60 minutes were spent doing the consultation, more than half the time was spent in direct patient contact. [id number]/[facility] #: [id number] MARILUZ
[2017-06-29] MEDS: Furosemide TAB* 40 MG PO SCH (15:50)
[2017-06-30 05:38] LABS: Hematocrit 26 % (42-52); Hemoglobin 8.4 g/dl (14.0-18.0); Mean Corpuscular HGB Conc 33 g/dl (31-36); Mean Corpuscular Hemoglobin 32 pg (27-31); Mean Corpuscular Volume 98 fL (80-94); Mean Platelet Volume 7 um3 (7.4-10.4); White Blood Count 4.3 10^3/ul (3.5-10.8)
[2017-06-30 05:39] LABS: Comments Flag Yes
[2017-06-30 05:40] LABS: Red Cell Distribution Width 23 % (10.5-15)
[2017-06-30 05:49] LABS: BUN/Creatinine Ratio 11.2 (8-20); Calcium 8.1 mg/dL (8.6-10.3); EGFR African American 112.1 (>60); EGFR Non-African American 87.2 (>60); Potassium 4.4 mmol/L (3.5-5.0)
[2017-06-30] MEDS: Citalopram TAB* 20 MG PO SCH (10:05)
[2017-06-30] MEDS: Folic Acid TAB* 1 MG PO SCH (10:05)
[2017-06-30] MEDS: Furosemide TAB* 40 MG PO SCH (10:05)
[2017-06-30] MEDS: Lactulose* 15 ML UDC PO SCH (10:06)
[2017-06-30] MEDS: Multivitamins/Minerals TAB PO SCH (10:07)
[2017-06-30] MEDS: Propranolol TAB* 10 MG PO SCH (10:07)
[2017-06-30] MEDS: Magnesium Oxide TAB* 400 MG PO SCH (10:07)
[2017-06-30] MEDS: Spironolactone TAB* 25 MG PO SCH (10:08)
[2017-06-30] MEDS: Gabapentin CAP(*) 300 MG PO SCH (10:09)
[2017-06-30] MEDS: Thiamine TAB* 100 MG TAB PO SCH (10:09)
--- NOTE | 2017-06-30 10:11 | DCNOTE ---
Patient seen this morning. Reports feeling great this morning, sat in chair for breakfast, just got into bed again after feeling a bit tired/"out of it" after sitting for a while. Ambulated with PT yesterday which felt good. On exam, RRR, s1 and s2 present, no m/g/r, some diminished BS in bases, otherwise clear, abdomen soft, mild distension, no significant ascites Plan to discharge home as long as patient feels well after lunch. Will discharge on lower diuretic dosing for now but patient will weigh himself daily and will call either PCP or GI if he notices progressive weight gain. Again encouraged complete EtOH abstinence.
[2017-06-30 10:16] VITALS: BP 136/56
[2017-06-30] MEDS: Phenytoin CHEW TAB(*) 50 MG PO SCH (10:23)
[2017-06-30] MEDS: RiFAXimin* 550 MG TAB PO SCH (10:24)
[2017-06-30] MEDS: traMADol TAB* 50 MG PO PRN (10:26)
[2017-06-30] MEDS: Cyanocobalamin TAB* 500 MCG PO SCH (10:34)
--- NOTE | 2017-06-30 12:37 | OP ---
CC: [facility]; Dr. Rishabh Ferreira; Dr. Rosie Noriega OPERATIVE REPORT: DATE OF OPERATION: 06/29/17 DATE OF : 59 SURGEON: Denis Covarrubias MD. INDICATIONS: I was contacted by the hospitalist service yesterday to consider another paracentesis on Mr. Mata, I had done one approximately 2 weeks ago. The patient continues to have liver failure secondary to alcoholic cirrhosis and worsening peritoneal fluid, this is complicated, an umbilical h ernia that show significant excoriation, and spontaneous drainage of peritoneal fluid, trying to min imize his fluid drainage with serial taps. Additionally, the patient presented after a fall and was noted to have an area of blood around his spleen on CT scan on 06/26/17. We were consulted for thi s purpose. I have reviewed the chart and discussed this case with the surgical mid-level providers. The patient received a unit of blood, otherwise his hemoglobin was maintained. On that CT scan th e patient did have a large amount of simple ascites, cirrhotic liver, and a small amount of hemoperi toneum adjacent to the spleen. It is unclear etiology about the hematoma. The patient did state he had fallen on his left side and it was somewhat painful. At the time of our initial evaluation, I certainly did not recommend exploratory laparotomy or a trauma laparotomy for Mr. Mata given his sig nificant comorbidities and now elevating of MELD score. I outlined the details of procedure again. Going over risks, benefits, and alternatives of paracent esis. The indication for this patient was that patient was having worsening shortness of breath. His josé tocrit stayed stable and we did not do this for diagnostic purposes. DESCRIPTION OF PROCEDURE: The patient was taken to the procedure suite. He was placed in a mild ri ght lateral decubitus position, just allowing enough of the right abdomen to settle. With the ultra sound probe we were able to identify the spot with the largest fluid collection above the bowel and in the smallest portion of subcutaneous fat. The area was prepped sterilely. Ultrasound was set of f to the side. We then performed a time out and I injected lidocaine for local block. A skin incisi on was made with a scalpel and an 8-Bel[place]ian paracentesis kit was utilized to enter into the abdomen. This was done with significant traction on the abdominal skin to create a tunneling. The tubing wa s then set to the drainage bag and approximately 1400 cc of fluid was removed into the bag with ease . This was bloody and specimen was collected for planned cytology and blood levels. Next, we set the tubing suction canisters, approximately 3L were filled, and in the end we assessed 4.5 L of bloody peritoneal fluid. The catheter stopped draining and was removed sterilely and a ban dage placed. The patient tolerated the procedure well. The patient was transferred to the PACU whe re he became somewhat lightheaded. He was seen by the hospitalist service. No additional treatment was done and the patient was transferred back to the floor in patient's previous condition. [id number]/[facility] #: [id number]
--- NOTE | 2017-06-30 22:47 | DS ---
CC: Dr. Rosie Noriega; Dr. Rishabh Ferreira DISCHARGE SUMMARY: DATE OF ADMISSION: 06/26/17 DATE OF DISCHARGE: 06/30/17 PRIMARY CARE PHYSICIAN: Dr. Rosie Noriega. PRINCIPAL DISCHARGE DIAGNOSES: 1. Acute blood loss anemia secondary to hemoperitoneum. 2. Acute renal failure. 3. Cirrhosis with ascites. 4. Likely gastroenteritis. SECONDARY DIAGNOSES: 1. Alcoholic cirrhosis. 2. Hypertension. 3. Asthma. 4. Depression. 5. History of alcohol withdrawal seizures. DISCHARGE MEDICATION REGIMEN: 1. Lasix 40 mg by mouth daily. 2. Lexapro 10 mg by mouth daily. 3. Epinephrine 0.3 mg IM once as needed for anaphylaxis. 4. Vitamin B12, 500 mcg by mouth daily. 5. Albuterol 2 puffs inhaled every 4 hours as needed for shortness of breath or wheezing. 6. Gabapentin 300 mg by mouth at bedtime as needed for pain. 7. Folic acid 1 mg by mouth daily. 8. Phenytoin 200 mg by mouth at bedtime. 9. Multivitamin 1 tablet by mouth daily. 10. Magnesium oxide 800 mg by mouth daily. 11. Lactulose 15 mL by mouth 3 times daily. 12. Rifaximin 550 mg by mouth 2 times daily. 13. Propranolol 10 mg by mouth daily. 14. Phenytoin 100 mg by mouth daily. 15. Hydroxyzine 25 mg by mouth 2 times daily as needed for itching. 16. Wound dressings one pad daily. 17. Thiamine 100 mg by mouth daily. 18. Spironolactone 50 mg by mouth daily. 19. Short course of tramadol 50 mg by mouth every 6 hours as needed for pain. STUDIES DONE DURING HOSPITALIZATION: CT of the brain, impression: Bilateral inferior frontal encephalomalacia, likely remote, post traumatic, no acute intracranial pathology. CT chest, abdomen and pelvis without contrast, impression: Small amount of hemoperitoneum adjacent to the spleen. Large amount of simple ascites, cirrhotic liver, gynecomastia, atherosclerosis, large umbilical hernia containing fat and ascitic fluid. HISTORY OF PRESENT ILLNESS/HOSPITAL SUMMARY: Please see the full history and physical by Dr. Diann Liu for full details. Briefly, Mr. Mata is a 62-year - old male with a past medical history as above, who presented to the hospital with nausea, vomiting, and diarrhea. The patient continued to take his medications at home. This seemed to improve a bit; however, the patient felt very weak and dizzy and came to the hospital for further evaluation. On admission, he was found to be profoundly anemic with a hemoglobin of 5.1. The patient was also found to be in renal failure. The patient was transfused a total of 2 units of blood with improvement in his H and H. Surgery was consulted regarding the findings of the patient's hemoperitoneum. They felt that at this point there was no indication for surgery and we will just continue to monitor the patient's hemoglobin, which remained stable over the next few days. The patient's diuretics were initially held and his renal function improved over the following days, coming back down to baseline. While hospitalized, the patient underwent a paracentesis by Dr. Covarrubias, with 4.5 L removed. There was some blood tinge to the ascites, was not significant for SBP and cytology showed no malignant cells. The patient's abdominal distention and shortness of breath improved after the paracentesis. He was restarted on lower doses of his diuretics, specifically spironolactone at 50 mg by mouth daily and Lasix at 40 mg by mouth daily. The patient was instructed to keep a close eye on his weights and if he notices weight gain of 3-5 pounds, to contact either his PCP or his GI office for further instructions on how to titrate his medications. The patient was restarted on his lactulose as well, which was initially held due to his volume depletion. The patient seems to be compliant with alcohol abstinence and he was encouraged to continue to do so. TIME SPENT: Total time spent on this discharge, 45 minutes. This is a summary of the hospitalization, please see the full medical record for further details. [id number]/[facility] #: [id number] [facility]
== END 2017-06-30 13:37 | disposition home health service (06) | DRG 254 ==
LOC: ED 17:06 → MEDTELE 19:43
PROVIDERS: ADMIT Internal Medicine; ATTEND Hospitalist
PROC: 30233N1 Transfusion of Nonautologous Red Blood Cells into Peripheral Vein, Percutaneous Approach (ICD-10-PCS; 2017-06-27)
PROC: 0W9G3ZZ Drainage of Peritoneal Cavity, Percutaneous Approach (ICD-10-PCS; principal; 2017-06-29 07:49)
DX: S36.898A Other injury of other intra-abdominal organs, initial encounter (principal); N17.9 Acute kidney failure, unspecified; D61.818 Other pancytopenia; D62 Acute posthemorrhagic anemia; D68.9 Coagulation defect, unspecified; E11.622 Type 2 diabetes mellitus with other skin ulcer; G93.89 Other specified disorders of brain; K42.0 Umbilical hernia with obstruction, without gangrene; K70.11 Alcoholic hepatitis with ascites; K70.40 Alcoholic hepatic failure without coma; K70.31 Alcoholic cirrhosis of liver with ascites; E78.00 Pure hypercholesterolemia, unspecified; I10 Essential (primary) hypertension; J45.909 Unspecified asthma, uncomplicated; J42 Unspecified chronic bronchitis; M17.0 Bilateral primary osteoarthritis of knee; F32.9 Major depressive disorder, single episode, unspecified; E86.0 Dehydration; F10.10 Alcohol abuse, uncomplicated; Y90.9 Presence of alcohol in blood, level not specified; L98.499 Non-pressure chronic ulcer of skin of other sites with unspecified severity; E66.9 Obesity, unspecified; I70.90 Unspecified atherosclerosis; R74.0 Nonspecific elevation of levels of transaminase and lactic acid dehydrogenase [LDH]; N62 Hypertrophy of breast; K52.9 Noninfective gastroenteritis and colitis, unspecified; Z88.8 Allergy status to other drugs, medicaments and biological substances; Z90.49 Acquired absence of other specified parts of digestive tract; Z91.030 Bee allergy status; Z87.891 Personal history of nicotine dependence; Z82.3 Family history of stroke; Z68.32 Body mass index [BMI] 32.0-32.9, adult; W18.30XA Fall on same level, unspecified, initial encounter; Y92.009 Unspecified place in unspecified non-institutional (private) residence as the place of occurrence of the external cause
CPT/HCPCS: 36415; 49082; 70450; 71250; 74176; 80048; 80053; 80076; 80185; 80320; 81003; 82140; 82150; 82272; 82550; 83605; 83690; 83735; 83880; 84484; 85014; 85018; 85025; 85610; 85730; 86140; 86850; 86900; 86901; 86922; 88112; 89051; 93005; A9270-GY; G0480; J2001; P9040

== ENCOUNTER 2017-08-04 08:21 | Emergency (ER) | payer BC ==
[2017-08-04 09:18] LABS: Hematocrit 30 % (42-52); Hemoglobin 9.9 g/dl (14.0-18.0); Mean Corpuscular HGB Conc 33 g/dl (31-36); Mean Corpuscular Hemoglobin 32 pg (27-31); Mean Corpuscular Volume 95 fL (80-94); Mean Platelet Volume 7 um3 (7.4-10.4); Red Blood Count 3.15 10^6/ul (4.0-5.4); Red Cell Distribution Width 21 % (10.5-15); White Blood Count 6.7 10^3/ul (3.5-10.8)
--- NOTE | 2017-08-04 09:23 | RAD ---
HISTORY: Cough COMPARISONS: June 13, 2017 VIEWS: 4: Frontal dual-energy and lateral views of the chest. FINDINGS: CARDIOMEDIASTINAL SILHOUETTE: The cardiomediastinal silhouette is normal. EDWARD: The edward are normal. PLEURA: The costophrenic angles are sharp. No pleural abnormalities are noted. LUNG PARENCHYMA: The lungs are clear. There has been improved aeration of the left lung base. ABDOMEN: The upper abdomen is clear. There is no subphrenic gas. BONES AND SOFT TISSUES: Degenerative changes are noted of the spine OTHER: None. IMPRESSION: NO ACTIVE CARDIOPULMONARY DISEASE.
[2017-08-04 09:34] LABS: ALT 20 U/L (7-52); Albumin 3.2 g/dL (3.2-5.2); Alkaline Phosphatase 163 U/L (34-104); BUN/Creatinine Ratio 8.4 (8-20); Blood Urea Nitrogen 7 mg/dL (6-24); C Reactive Protein 10.04 mg/L (< 5.00); CO2 Carbon Dioxide 28 mmol/L (22-32); Calcium 8.7 mg/dL (8.6-10.3); Chloride 99 mmol/L (101-111); Creatine Kinase 234 U/L (10-223); EGFR African American 121.5 (>60); EGFR Non-African American 94.5 (>60); Globulin 4.2 g/dL (2-4); Glucose 185 mg/dL (70-100); Sodium 132 mmol/L (133-145); Total Protein 7.4 g/dL (6.4-8.9)
[2017-08-04 09:36] LABS: Troponin I 0.02 ng/mL (<0.04)
[2017-08-04] MEDS ORDERED: Levofloxacin 750 MG IVPREMIX(* 750 MG/150 ML BAG IVPB ONE (10:45)
[2017-08-04] MEDS ORDERED: Albuterol/Ipratropium NEB.SOL* Albuterol 2.5 MG/Ipratropium 0.5 MG 3 ML INH ONE (10:57)
[2017-08-04 11:57] LABS: Anion Gap 5 mmol/L (2-11)
[2017-08-04 13:28] VITALS: BP 138/61
--- NOTE | 2017-08-04 18:52 | ED ---
Carol Garay Edward, scribed for Carlos Wilson MD on 08/04/17 at 0823 . Shortness of Breath - HPI Summary HPI Summary: 62 y/o male presents to the ED c/o chest congestion and SOB. Pt c/o first WILSON, postnasal drip and sore throat starting 2 days ago. The sinus and throat symptoms are resolved but the symptoms have now moved into his chest. Associated sx: cough that is sometimes productive. The symptoms are not aggravated or alleviated with anything. Pt also dislocated his R shoulder recently, but this is a recurring injury, per pt. Pt was dx with bronchitis and PNA 6 weeks ago. - History of Current Complaint Hx Obtained From: Patient Onset/Duration: Lasting Days Current Severity: Moderate Aggrevating Factors: Nothing Alleviating Factors: Nothing Associated Signs & Symptoms: Cough (Productive) - Allergy/Home Medications Allergies/Adverse Reactions: Allergies Allergy/AdvReac Type Severity Reaction Status Date / Time Sertraline [From Zoloft] Allergy Mild Rash And Verified 08/04/17 09:19 Itching Lorazepam [From Ativan] AdvReac Mild Difficulty Verified 08/04/17 09:19 Breathing BEES Allergy Mild Hives Uncoded 08/04/17 09:19 PMH/Surg Hx/FS Hx/Imm Hx Previously Healthy: No Endocrine/Hematology History: Reports: Hx Diabetes - elevated glucose after acute liver failure - diet controlled Denies: Hx Anticoagulant Therapy, Hx Thyroid Disease, Hx Anemia, Hx Unexplained Bleeding Cardiovascular History: Reports: Hx Hypercholesterolemia, Hx Hypertension Denies: Hx Aneurysm, Hx Angina, Hx Angioplasty, Hx Auto Implanted Cardiovert Defib, Hx Cardiac Arrest, Hx Cardiomegaly, Hx Congenital Heart Disease, Hx Congestive Heart Failure, Hx Coronary Artery Disease, Hx Deep Vein Thrombosis, Hx Embolism, Hx Hypotension, Hx Pacemaker/ICD, Hx Peripheral Vascular Disease, Hx Rheumatic Fever, Hx Syncope, Hx Valvular Heart Disease, Other Cardiovascular Problems/Disorders Respiratory History: Reports: Hx Asthma, Hx Chronic Bronchitis, Hx Seasonal Allergies - hay fever Denies: Hx Chronic Obstructive Pulmonary Disease (COPD), Hx Cystic Fibrosis, Hx Lung Cancer, Hx Pleural Effusion, Hx Pneumonia, Hx Pulmonary Edema, Hx Pulmonary Embolism, Hx Sleep Apnea, Other Respiratory Problems/Disorders GI History: Reports: Hx Cirrhosis, Hx Gall Bladder Disease, Hx Hiatal Hernia, Hx Ulcer Denies: Hx Crohn's Disease, Hx Diverticulosis, Hx Gastroesophageal Reflux Disease, Hx Gastrointestinal Bleed, Hx Irritable Bowel, Hx Jaundice, Hx Obstructive Bowel, Hx Ileostomy, Hx Pyloric Stenosis, Other GI Disorders History: Denies: Hx Dialysis, Hx Renal Disease Musculoskeletal History: Reports: Hx Arthritis - both knees, Hx Orthopedic Injury Denies: Hx Back Problems, Hx Bursitis, Hx Congenital Bone Abnormalities, Hx Fibromyalgia, Hx Gout, Hx Osteoporosis, Hx Scoliosis, Hx Tendonitis, Other Musculoskeletal History Sensory History: Reports: Hx Contacts or Glasses Denies: Hx Cataracts, Hx Eye Injury, Hx Eye Prosthesis, Hx Glaucoma, Hx Legally Blind, Hx Macular Degeneration, Hx Vision Problem, Hx Deafness, Hx Hearing Aid, Hx Hearing Problem, Other Sensory Impairments Opthamlomology History: Reports: Hx Contacts or Glasses Denies: Hx Cataracts, Hx Eye Injury, Hx Eye Prosthesis, Hx Glaucoma, Hx Legally Blind, Hx Macular Degeneration, Hx Vision Problem, Other Sensory Impairments Neurological History: Reports: Hx Headaches, Hx Seizures - 1 year ago, Other Neuro Impairments/Disorders - Subdural Hematoma Denies: Hx Dementia Psychiatric History: Reports: Hx Depression, Hx Substance Abuse - ETOH Denies: Hx Anxiety, Hx Attention Deficit Hyperactivity Disorder, Hx Eating Disorder, Hx Panic Disorder, Hx Post Traumatic Stress Disorder, Hx Inpatient Treatment, Hx Community Mental Health Tx, Hx Schizophrenia, Hx Bipolar Disorder , Hx Suicide Attempt, Hx of Violent Episodes Against Others, Other Psychiatric Issues/Disorders - Surgical History Surgery Procedure, Year, and Place: RIGHT ANKLE ORIF. LEFT KNEE TENDON REPAIR. CHOLECYSECTOMY. APPENDECTOMY. TONSILECTOMY Hx Anesthesia Reactions: No Infectious Disease History: Denies: Hx Clostridium Difficile, Hx Hepatitis, Hx Human Immunodeficiency Virus (HIV), Hx of Known/Suspected MRSA, Hx Shingles, Hx Tuberculosis, History Other Infectious Disease - Family History Known Family History: Negative: Cardiac Disease, Diabetes - Social History Alcohol Use: Daily Alcohol Amount: 2-3 beers per pt report Hx Substance Use: No Substance Use Type: Reports: None Hx Tobacco Use: Yes Smoking Status (MU): Former Smoker Type: Cigarettes Length of Time of Smoking/Using Tobacco: 5 years Have You Smoked in the Last Year: No Review of Systems Constitutional: Negative Eyes: Negative Positive: Sore Throat, Nasal Discharge - postnasal drip, Other - sinus congestion Cardiovascular: Negative Positive: Shortness Of Breath, Cough Gastrointestinal: Negative Genitourinary: Negative Musculoskeletal: Other - dislocated R shoulder (self-reduced) Skin: Negative Positive: Headache Psychological: Normal All Other Systems Reviewed And Are Negative: Yes Physical Exam - Summary Physical Exam Summary: VITAL SIGNS: Reviewed. GENERAL: Patient is a well-developed and nourished male who is lying comfortable in the stretcher. Patient is not in any acute respiratory distress. HEAD AND FACE: No signs of trauma. No ecchymosis, hematomas or skull depressions. No sinus tenderness. EYES: PERRLA, EOMI x 2, No injected conjunctiva, no nystagmus. EARS: Hearing grossly intact. Ear canals and tympanic membranes are within normal limits. MOUTH: Oropharynx within normal limits. NECK: Supple, trachea is midline, no adenopathy, no JVD, no carotid bruit, no c- spine tenderness, neck with full ROM. CHEST: Symmetric, no tenderness at palpation LUNGS: Bilateral crackles. CVS: Regular rate and rhythm, S1 and S2 present, no murmurs or gallops appreciated. ABDOMEN: Soft, non-tender. No signs of distention. No rebound no guarding. There is an umbilical hernia that is reducible. EXTREMITIES: FROM in all major joints, no edema, no cyanosis or clubbing. NEURO: Alert and oriented x 3. No acute neurological deficits. Speech is normal and follows commands. SKIN: Dry and warm Triage Information Reviewed: Yes Vital Signs On Initial Exam: Initial Vitals Temp Pulse Resp BP Pulse Ox 98.2 F 58 20 120/70 95 08/04/17 08:23 08/04/17 08:23 08/04/17 08:23 08/04/17 08:23 08/04/17 08:23 Vital Signs Reviewed: Yes Diagnostics - Vital Signs Vital Signs Temp Pulse Resp BP Pulse Ox 08/04/17 13:00 70 18 93 08/04/17 12:30 138/61 08/04/17 12:00 71 14 116/49 98 08/04/17 11:30 109/51 08/04/17 11:00 79 21 96 08/04/17 10:00 76 22 95 08/04/17 09:00 62 16 123/74 96 08/04/17 08:37 18 114/71 08/04/17 08:23 98.2 F 58 20 120/70 95 - Laboratory Lab Results: Lab Results 08/04/17 08/04/17 08/04/17 Range/Units 08:50 08:50 08:50 WBC 6.7 (3.5-10.8) 10^3/ul RBC 3.15 L (4.0-5.4) 10^6/ul Hgb 9.9 L (14.0-18.0) g/dl Hct 30 L (42-52) % MCV 95 H (80-94) fL MCH 32 H (27-31) pg MCHC 33 (31-36) g/dl RDW 21 H (10.5-15) % Plt Count 146 L (150-450) 10^3/ul MPV 7 L (7.4-10.4) um3 Neut % (Auto) 58.9 (38-83) % Lymph % (Auto) 21.5 L (25-47) % [place] % (Auto) 9.3 H (1-9) % Eos % (Auto) 9.7 H (0-6) % Baso % (Auto) 0.6 (0-2) % Absolute Neuts (auto) 3.9 (1.5-7.7) 10^3/ul Absolute Lymphs (auto) 1.4 (1.0-4.8) 10^3/ul Absolute Monos (auto) 0.6 (0-0.8) 10^3/ul Absolute Eos (auto) 0.7 H (0-0.6) 10^3/ul Absolute Basos (auto) 0 (0-0.2) 10^3/ul Absolute Nucleated RBC 0.01 10^3/ul Nucleated RBC % 0.1 Sodium 132 L (133-145) mmol/L Potassium TNP Chloride 99 L (101-111) mmol/L Carbon Dioxide 28 (22-32) mmol/L Anion Gap 5 (2-11) mmol/L BUN 7 (6-24) mg/dL Creatinine 0.83 (0.67-1.17) mg/dL Est GFR ( Amer) 121.5 (>60) Est GFR (Non-Af Amer) 94.5 (>60) BUN/Creatinine Ratio 8.4 (8-20) Glucose 185 H (70-100) mg/dL Lactic Acid 2.7 H* (0.5-2.0) mmol/L Calcium 8.7 (8.6-10.3) mg/dL Total Bilirubin 2.00 H (0.2-1.0) mg/dL AST TNP ALT 20 (7-52) U/L Alkaline Phosphatase 163 H (34-104) U/L Total Creatine Kinase 234 H (10-223) U/L Troponin I 0.02 (<0.04) ng/mL C-Reactive Protein 10.04 H (< 5.00) mg/L B-Natriuretic Peptide ( - 100) pg/mL Total Protein 7.4 (6.4-8.9) g/dL Albumin 3.2 (3.2-5.2) g/dL Globulin 4.2 H (2-4) g/dL Albumin/Globulin Ratio 0.8 L (1-3) 08/04/17 Range/Units 08:50 WBC (3.5-10.8) 10^3/ul RBC (4.0-5.4) 10^6/ul Hgb (14.0-18.0) g/dl Hct (42-52) % MCV (80-94) fL MCH (27-31) pg MCHC (31-36) g/dl RDW (10.5-15) % Plt Count (150-450) 10^3/ul MPV (7.4-10.4) um3 Neut % (Auto) (38-83) % Lymph % (Auto) (25-47) % [place] % (Auto) (1-9) % Eos % (Auto) (0-6) % Baso % (Auto) (0-2) % Absolute Neuts (auto) (1.5-7.7) 10^3/ul Absolute Lymphs (auto) (1.0-4.8) 10^3/ul Absolute Monos (auto) (0-0.8) 10^3/ul Absolute Eos (auto) (0-0.6) 10^3/ul Absolute Basos (auto) (0-0.2) 10^3/ul Absolute Nucleated RBC 10^3/ul Nucleated RBC % Sodium (133-145) mmol/L Potassium Chloride (101-111) mmol/L Carbon Dioxide (22-32) mmol/L Anion Gap (2-11) mmol/L BUN (6-24) mg/dL Creatinine (0.67-1.17) mg/dL Est GFR ( Amer) (>60) Est GFR (Non-Af Amer) (>60) BUN/Creatinine Ratio (8-20) Glucose (70-100) mg/dL Lactic Acid (0.5-2.0) mmol/L Calcium (8.6-10.3) mg/dL Total Bilirubin (0.2-1.0) mg/dL AST ALT (7-52) U/L Alkaline Phosphatase (34-104) U/L Total Creatine Kinase (10-223) U/L Troponin I (<0.04) ng/mL C-Reactive Protein (< 5.00) mg/L B-Natriuretic Peptide 41 ( - 100) pg/mL Total Protein (6.4-8.9) g/dL Albumin (3.2-5.2) g/dL Globulin (2-4) g/dL Albumin/Globulin Ratio (1-3) Result Diagrams: 08/04/17 08:50 08/04/17 08:50 Lab Statement: Any lab studies that have been ordered have been reviewed, and results considered in the medical decision making process. - Radiology CXR Xray Interpretation: No Acute Changes - NO ACTIVE CARDIOPULMONARY DISEASE Radiology Interpretation Completed By: Radiologist - EKG 1 EKG Interpretation: 09:30 - SR @ [address] ELEVATIONS Re-Evaluation - Re-Evaluation 1 Re-Evaluation Time: 10:47 Change: Improved Comment: Pt requests shoulder immobilizer 2 Re-Evaluation Time: 12:06 Comment: Discuss plan of care Course/Dx - Course Assessment/Plan: 62 y/o male presents to the ED c/o chest congestion and SOB. Pt c/o first WILSON, postnasal drip and sore throat starting 2 days ago. The sinus and throat symptoms are resolved but the symptoms have now moved into his chest. Associated sx: cough that is sometimes productive. The symptoms are not aggravated or alleviated with anything. Pt also dislocated his R shoulder recently, but this is a recurring injury, per pt. Pt was dx with bronchitis and PNA 6 weeks ago. CXR SHOWS NO ACTIVE CARDIOPULMONARY DISEASE. EKG @ 09:30 - SR @ [address] ELEVATIONS. Test results are at his baseline except lactic acid 2.7 and CRP 10. CXR shows no acute pathology. During the PE the pt still has crackles and a productive cough. Therefore I believe the pt has either bronchitis vs early PNA. Pt was placed in doxcycycline; pt was also given 1 dose of Levaquin in the ED. At this time I discussed the test results and findings with the pt and the pt will be d/c home with f/u with PCP. The pt is hemodynamically stable, A&Ox3. The pt also requested a shoulder immobilizer for shoulder pain since the pt has a history of dislocations. Right now the shoulder is in place. - Diagnoses Differential Diagnosis/HQI/PQRI: Positive: Asthma, Bronchitis, CHF, Chest Wall Pain, COPD Exacerbation Provider Diagnoses: Bronchitis Discharge - Discharge Plan Condition: Stable Disposition: HOME Prescriptions: Albuterol HFA INHALER* [Ventolin HFA Inhaler*] 1 puff INH Q4H PRN #1 mdi PRN Reason: Shortness Of Breath Azithromycin TAB* [Zithromax TAB (Z-GUILLERMO) 250 mg #6 tabs] 2 tab PO .TODAY, THEN 1 DAILY #1 guillermo DOXYcycline CAP(*) [DOXYcycline 100MG CAP(*)] 100 mg PO BID #20 cap Patient Education Materials: Acute Bronchitis (ED) Referrals: Rosie Noriega MD [Primary Care Provider] - 4 Days (PLEASE F/U IN 3-5 DAYS) The documentation as recorded by the Carol segundo Edward accurately reflects the service I personally performed and the decisions made by , Carlos Wilson MD.
== END 2017-08-04 13:28 | disposition home or self-care (01) ==
LOC: EEVIPCON 08:21 → ED 08:21
DX: J40 Bronchitis, not specified as acute or chronic (principal); R05 Cough; R06.02 Shortness of breath; Z87.891 Personal history of nicotine dependence
CPT/HCPCS: 36415; 71020; 80053; 82550; 83605; 83880; 84484; 85025; 86140; 87040; 93005; 96365; 99283; A9270-GY

== ENCOUNTER 2017-08-24 09:13 | Inpatient (IN) | payer BC ==
--- NOTE | 2017-08-24 09:56 | RAD ---
HISTORY: Cough, congestion COMPARISONS: August 04, 2017 VIEWS: 2: frontal portable view of the chest at 9:52 AM FINDINGS: LINES AND TUBES: None. CARDIOMEDIASTINAL SILHOUETTE: The cardiomediastinal silhouette is normal for portable technique. PLEURA: The costophrenic angles are sharp. No pleural abnormalities are noted. LUNG PARENCHYMA: The lungs are clear. ABDOMEN: The upper abdomen is clear. There is no subphrenic gas. BONES AND SOFT TISSUES: No bone or soft tissue abnormalities are noted. IMPRESSION: NO ACTIVE CARDIOPULMONARY DISEASE.
--- NOTE | 2017-08-24 10:09 | RAD ---
Indication: Confusion. CT of the brain was performed without IV contrast. Comparison is made with previous exam dated June 26, 2017. 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 This is more prominent on the right than on the left. No midline shift is noted. No definite intracranial hemorrhage is noted. Motion artifact degrades the images. 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 No obvious hemorrhage is noted although evaluation is limited by motion artifact.
[2017-08-24 10:13] LABS: Hematocrit 29 % (42-52); Hemoglobin 9.4 g/dl (14.0-18.0); Mean Corpuscular HGB Conc 32 g/dl (31-36); Mean Corpuscular Hemoglobin 29 pg (27-31); Mean Corpuscular Volume 90 fL (80-94); Mean Platelet Volume 7 um3 (7.4-10.4); Red Blood Count 3.26 10^6/ul (4.0-5.4); Red Cell Distribution Width 20 % (10.5-15); White Blood Count 8.9 10^3/ul (3.5-10.8)
[2017-08-24 10:14] LABS: Venous Bicarbonate HCO3 20.5 mmol/L (24-28)
[2017-08-24 10:31] LABS: ALT 20 U/L (7-52); AST 47 U/L (13-39); Albumin 3.2 g/dL (3.2-5.2); Alkaline Phosphatase 141 U/L (34-104); Anion Gap 7 mmol/L (2-11); BUN/Creatinine Ratio 9.9 (8-20); Blood Urea Nitrogen 10 mg/dL (6-24); CO2 Carbon Dioxide 24 mmol/L (22-32); Calcium 8.8 mg/dL (8.6-10.3); Chloride 101 mmol/L (101-111); EGFR African American 96.9 (>60); EGFR Non-African American 75.4 (>60); Globulin 3.8 g/dL (2-4); Glucose 194 mg/dL (70-100); Potassium 4.4 mmol/L (3.5-5.0); Sodium 132 mmol/L (133-145)
[2017-08-24 10:32] LABS: Troponin I 0.03 ng/mL (<0.04)
[2017-08-24 10:32] LABS: Urine Bilirubin Negative (Negative); Urine Glucose 1+(50 mg/dL) (Negative); Urine Nitrite Negative (Negative)
[2017-08-24 11:24] LABS: C Reactive Protein 15.61 mg/L (< 5.00)
[2017-08-24 11:40] LABS: Alcohol < 10 mg/dL (<10)
[2017-08-24] MEDS ORDERED: cefTRIAXone(*) 2 GM in NS 0.9% 100 ML* 100 ML IVPB ONE (12:19)
[2017-08-24] MEDS ORDERED: Vancomycin(*) 1,500 MG in NS 0.9% 250 ML* 250 ML IVPB ONE (12:19)
[2017-08-24] MEDS ORDERED: Thiamine IV* 100 MG/ML 2 ML VIAL IV ONE (13:01)
[2017-08-24] MEDS ORDERED: Ondansetron INJ* 2 MG/ML VIAL IV PRN (13:19)
[2017-08-24 13:23] LABS: Phenytoin 5.9 mcg/mL (10-20)
[2017-08-24] MEDS ORDERED: Albuterol HFA INHALER* 8 gm MDI INH PRN (13:23)
[2017-08-24] MEDS ORDERED: levETIRAcetam IV* 1,000 MG in NS 0.9% 100 ML* 100 ML IVPB ONE (13:28)
[2017-08-24] MEDS ORDERED: NS 0.9% 1000 ML* 1,000 ML IV SCH (13:30)
[2017-08-24 13:50] LABS: Creatine Kinase 143 U/L (10-223)
[2017-08-24] MEDS ORDERED: Diazepam SYRINGE* 5 MG/ML 10 ML SYRINGE (50 MG total) IV SCH (14:00)
--- NOTE | 2017-08-24 14:52 | RAD ---
HISTORY: Neck pain, altered mental status COMPARISONS: April 28, 2017 TECHNIQUE: Multiple contiguous axial CT scans were obtained of the cervical spine without intravenous contrast, with coronal and sagittal multiplanar reformations. FINDINGS: BRAIN: The visualized brain is unremarkable CENTRAL CANAL: Evaluation of the central canal is limited on CT technique; however, there is no obvious canalicular mass or epidural hemorrhage. ALIGNMENT: There is straightening of the cervical lordosis. VERTEBRAL BODIES: The odontoid process is intact. The atlantoaxial intervals are symmetric. The vertebral bodies are normal in attenuation, without fracture. There is multilevel anterolateral marginal osteophyte formation. JOINTS: There is diffuse uncovertebral hypertrophic change most pronounced at C5-C6 and C6-C7. MUSCULATURE: Unremarkable INTERVERTEBRAL DISCS: There is diffuse loss of intervertebral disc height. AXIAL IMAGES: C2-C3: There is no osseous neural foraminal narrowing or central canal stenosis. C3-C4: There is bilateral uncovertebral and facet hypertrophy. There is severe bilateral neural from narrowing. There is no osseous central canal stenosis. C4-C5: There is right and left uncovertebral and facet hypertrophy. There is severe right and moderate left neural foraminal narrowing. There is no osseous central canal stenosis. C5-C6: There is bilateral uncovertebral and facet hypertrophy. There is severe bilateral neural foraminal narrowing. There is no osseous central canal stenosis. C6-C7: There is bilateral uncovertebral facet hypertrophy. There is severe bilateral neural foraminal narrowing. There is mild narrowing of the central canal . C7-T1: There is no osseous neural foraminal narrowing or central canal stenosis. SOFT TISSUES: The visualized soft tissues of the neck are unremarkable. The prevertebral fat stripe is preserved. OTHER: None. IMPRESSION: 1. STRAIGHTENING THE CERVICAL LORDOSIS. 2. DEGENERATIVE DISC DISEASE AND OSTEOARTHRITIS. 3. THERE IS MULTILEVEL NEURAL FORAMINAL NARROWING DESCRIBED ABOVE. 4. THERE IS MILD NARROWING OF THE CENTRAL CANAL AT C6-C7.
[2017-08-24] MEDS: Propranolol TAB* 10 MG PO SCH (16:41)
[2017-08-24] MEDS: Azithromycin IV(*) 500 MG in NS 0.9% 250 ML* 250 ML IVPB SCH (16:41)
--- NOTE | 2017-08-24 19:00 | ED ---
Marcus Garay Angela, scribed for Bobby Calvin MD on 08/24/17 at 0931 . Altered Mental Status - HPI Summary HPI Summary: This pt is a 62 y/o male accompanied by his father presenting to [facility] via EMS for altered mental status today. Father reports he found the pt unresponsive in his bed today. Father notes that the the pt was not able to speak or respond to him. Father states the last time he spoke with the pt was yesterday and the pt was feeling fine for the past 3-4 weeks. Father does not know when was the last time the pt fell. Pt has been dealing with a bad congestion, per father. Father also notes the pt has a "bad knees." Per father, pt still drinks alcohol. Father reports the pt lives with his , but she is not often there. goes to check on pt once or twice a day, per pt 's father. PMHx includes liver failure and traumatic brain injury. HPI is limited due to level 5 caveat - AMS. - History Of Current Complaint Chief Complaint: EDAltMentalStatus Stated Complaint: AMS Hx Obtained From: Family/Barrel Rifler - Father Hx From Patient Unobtainable Due To: Altered Mental Status Onset/Duration: Still Present Timing: Constant, Lasting Hours Character: Responsiveness Aggravating Factor(s): Unknown Alleviating Factor(s): Unknown - Allergies/Home Medications Allergies/Adverse Reactions: Allergies Allergy/AdvReac Type Severity Reaction Status Date / Time Sertraline [From Zoloft] Allergy Mild Rash And Verified 08/04/17 09:19 Itching Lorazepam [From Ativan] AdvReac Mild Difficulty Verified 08/04/17 09:19 Breathing BEES Allergy Mild Hives Uncoded 08/04/17 09:19 Home Medications: Home Medications Diclofenac 1% GEL (NF) [Voltaren 1% GEL (NF)] 1 applic TOPICAL QID PRN 08/24/17 [History Confirmed 08/24/17] Furosemide TAB* [Lasix TAB*] 40 mg PO DAILY 08/24/17 [History Confirmed 08/24/17 ] Omeprazole CAP* [Prilosec CAP* 20 MG] 20 mg PO DAILY 08/24/17 [History Confirmed 08/24/17] PMH/Surg Hx/FS Hx/Imm Hx Endocrine/Hematology History: Reports: Hx Diabetes - elevated glucose after acute liver failure - diet controlled Denies: Hx Anticoagulant Therapy, Hx Thyroid Disease, Hx Anemia, Hx Unexplained Bleeding Cardiovascular History: Reports: Hx Hypercholesterolemia, Hx Hypertension Denies: Hx Aneurysm, Hx Angina, Hx Angioplasty, Hx Auto Implanted Cardiovert Defib, Hx Cardiac Arrest, Hx Cardiomegaly, Hx Congenital Heart Disease, Hx Congestive Heart Failure, Hx Coronary Artery Disease, Hx Deep Vein Thrombosis, Hx Embolism, Hx Hypotension, Hx Pacemaker/ICD, Hx Peripheral Vascular Disease, Hx Rheumatic Fever, Hx Syncope, Hx Valvular Heart Disease, Other Cardiovascular Problems/Disorders Respiratory History: Reports: Hx Asthma, Hx Chronic Bronchitis, Hx Seasonal Allergies - hay fever Denies: Hx Chronic Obstructive Pulmonary Disease (COPD), Hx Cystic Fibrosis, Hx Lung Cancer, Hx Pleural Effusion, Hx Pneumonia, Hx Pulmonary Edema, Hx Pulmonary Embolism, Hx Sleep Apnea, Other Respiratory Problems/Disorders GI History: Reports: Hx Cirrhosis, Hx Gall Bladder Disease, Hx Hiatal Hernia, Hx Ulcer Denies: Hx Crohn's Disease, Hx Diverticulosis, Hx Gastroesophageal Reflux Disease, Hx Gastrointestinal Bleed, Hx Irritable Bowel, Hx Jaundice, Hx Obstructive Bowel, Hx Ileostomy, Hx Pyloric Stenosis, Other GI Disorders History: Denies: Hx Dialysis, Hx Renal Disease Musculoskeletal History: Reports: Hx Arthritis - both knees, Hx Orthopedic Injury Denies: Hx Back Problems, Hx Bursitis, Hx Congenital Bone Abnormalities, Hx Fibromyalgia, Hx Gout, Hx Osteoporosis, Hx Scoliosis, Hx Tendonitis, Other Musculoskeletal History Sensory History: Reports: Hx Contacts or Glasses Denies: Hx Cataracts, Hx Eye Injury, Hx Eye Prosthesis, Hx Glaucoma, Hx Legally Blind, Hx Macular Degeneration, Hx Vision Problem, Hx Deafness, Hx Hearing Aid, Hx Hearing Problem, Other Sensory Impairments Opthamlomology History: Reports: Hx Contacts or Glasses Denies: Hx Cataracts, Hx Eye Injury, Hx Eye Prosthesis, Hx Glaucoma, Hx Legally Blind, Hx Macular Degeneration, Hx Vision Problem, Other Sensory Impairments Neurological History: Reports: Hx Headaches, Hx Seizures - 1 year ago, Other Neuro Impairments/Disorders - Subdural Hematoma Denies: Hx Dementia Psychiatric History: Reports: Hx Depression, Hx Substance Abuse - ETOH Denies: Hx Anxiety, Hx Attention Deficit Hyperactivity Disorder, Hx Eating Disorder, Hx Panic Disorder, Hx Post Traumatic Stress Disorder, Hx Inpatient Treatment, Hx Community Mental Health Tx, Hx Schizophrenia, Hx Bipolar Disorder , Hx Suicide Attempt, Hx of Violent Episodes Against Others, Other Psychiatric Issues/Disorders - Surgical History Surgery Procedure, Year, and Place: RIGHT ANKLE ORIF. LEFT KNEE TENDON REPAIR. CHOLECYSECTOMY. APPENDECTOMY. TONSILECTOMY Hx Anesthesia Reactions: No Infectious Disease History: Unable to Obtain/Confirm Infectious Disease History: Denies: Hx Clostridium Difficile, Hx Hepatitis, Hx Human Immunodeficiency Virus (HIV), Hx of Known/Suspected MRSA, Hx Shingles, Hx Tuberculosis, History Other Infectious Disease, Traveled Outside the [place] in Last 30 Days - Family History Known Family History: Negative: Cardiac Disease, Diabetes - Social History Alcohol Use: Daily Alcohol Amount: 2-3 beers per pt report Hx Substance Use: No Substance Use Type: Reports: None Hx Tobacco Use: Yes Smoking Status (MU): Former Smoker Type: Cigarettes Length of Time of Smoking/Using Tobacco: 5 years Have You Smoked in the Last Year: No Review of Systems Negative: Fever ENT: Other - bad congestion, per pt's father Musculoskeletal: Other - bad knees, per pt's father Neurological: Other - AMS, unresponsive All Other Systems Reviewed And Are Negative: No - Comments Additional Review of Systems Comments: ROS is limited due to level 5 caveat - AMS Physical Exam - Summary Physical Exam Summary: Constitutional: Well-developed, Well-nourished, Alert. (-) Distressed Skin: Warm, Dry HENT: Normocephalic; Atraumatic Eyes: Conjunctiva normal. Scleral icterus. Neck: Musculoskeletal ROM normal neck. (-) JVD, (-) Stridor, (-) Tracheal deviation Cardio: Rhythm regular, rate normal, Heart sounds normal; Intact distal pulses; The pedal pulses are 2+ and symmetric. Radial pulses are 2+ and symmetric. (-) Murmur Pulmonary/Chest wall: Effort normal. (-) Respiratory distress, (-) Wheezes, (-) Rales. There are bibasilar crackles. Abd: Soft. (-) Tenderness, (-) Distension, (-) Guarding, (-) Rebound Musculoskeletal: (-) Edema Lymph: (-) Cervical adenopathy Neuro: Alert, Oriented x3, Strength normal, Cranial nerves II-XII are grossly intact. (-) Dysmetria, (-) Nystagmus, (-) Ataxia by finger to nose testing, (-) Sensory deficit. Pt responds to loud voice. Pt gives appropriate short sentences. He responds to simple commands. No focal neurological deficits. Psych: Mood and affect Normal GCS: 14 Triage Information Reviewed: Yes Vital Signs On Initial Exam: Initial Vitals Temp Pulse Resp BP Pulse Ox 98.9 F 111 15 133/64 95 08/24/17 09:16 08/24/17 09:16 08/24/17 09:16 08/24/17 09:16 08/24/17 09:16 Vital Signs Reviewed: Yes Completion Of Physical Exam Limited Due To: Altered Mental Status Diagnostics - Vital Signs Vital Signs Temp Pulse Resp BP Pulse Ox 08/24/17 09:16 98.9 F 111 15 133/64 95 - Laboratory Result Diagrams: 08/24/17 09:51 08/24/17 09:51 Lab Statement: Any lab studies that have been ordered have been reviewed, and results considered in the medical decision making process. - Radiology Chest XR Xray Interpretation: No Acute Changes - IMPRESSION: No active cardiopulmonary disease. ED physician has reviewed this radiology report and agrees. Radiology Interpretation Completed By: Radiologist - CT Brain CT CT Interpretation: No Acute Changes - IMPRESSION: Bifrontal encephalomalacia unchanged from previous exam. No obvious hemmorhage is noted although evaluation is limited by motion artifact. ED physician has reviewed this radiology report and agrees. CT Interpretation Completed By: Radiologist Cervical spine CT CT Interpretation: Positive (See Comments) - IMPRESSION: 1. Straightening the cervical lordosis. 2. Degenerative disc disease and osteoarthritis. 3. There is multilevel neural foraminal narrowing as described above. 4. There is mild narrowing of the central canal at C6-C7. ED physician has reviewed this radiology report and agrees. CT Interpretation Completed By: Radiologist - EKG 10:00 EKG Interpretation: No STEMI. T-wave fluttering anterolateral. Re-Evaluation - Re-Evaluation First Eval Re-Evaluation Time: 10:58 Comment: Pt is more verbally responsive and follows simple commands. Second Eval Re-Evaluation Time: 12:13 Comment: No change in status. Altered Mental Statu Course/Dx - Course Assessment/Plan: This pt is a 62 y/o male accompanied by his father presenting to [facility] via EMS for altered mental status today. Father reports he found the pt unresponsive in his bed today. Father notes that the the pt was not able to speak or respond to him. Father states the last time he spoke with the pt was yesterday and the pt was feeling fine for the past 3-4 weeks. Father does not know when was the last time the pt fell. Pt has been dealing with a bad congestion, per father. Father also notes the pt has a "bad knees.". Per father , pt still drinks alcohol. Father reports the pt lives with his , but she is not often there. goes to check on pt once or twice a day, per pt's father. PMHx includes liver failure and traumatic brain injury. Lab work, chest XR, brain CT were obtained. Chest XR shows no active cardiopulmonary disease. Labs show glucose of 194, lactic acid of 4.0. UA shows trace of ketones and 1+ glucose. Brain CT reveals bifrontal encephalomalacia unchanged from previous exam. No obvious hemmorhage is noted although evaluation is limited by motion artifact. On re-evaluation at 10:58, pt is more verbally responsive and follows simple commands. His daughter reports the pt looked like this the last time he had a seizure. I discussed the pt's case with Dr. Brewer, who agrees to admit the pt. - Diagnoses Discharge Diagnoses: Altered mental status - Provider Notifications Discussed Care Of Patient With: Trung Brewer Time Discussed With Above Provider: 12:22 Instructed by Provider To: Other - I discussed the pt's care with Dr. Brewer, hospitalist, who is aware of the pt's condition. Discharge - Discharge Plan Condition: Stable Disposition: ADMITTED TO [facility] The documentation as recorded by the Marcus segundo Angela accurately reflects the service I personally performed and the decisions made by me, Bobby Calvin MD.
[2017-08-24] MEDS: levETIRAcetam 500 MG IVPREMIX* 500 MG/100 ML BAG IV SCH (20:25)
[2017-08-24] MEDS: RiFAXimin* 550 MG TAB PO SCH (20:25)
[2017-08-24] MEDS ORDERED: Phenytoin CHEW TAB(*) 50 MG PO SCH (21:00)
[2017-08-24] MEDS ORDERED: Diazepam TAB(*) 10 MG PO SCH (21:00)
--- NOTE | 2017-08-24 22:06 | HP ---
CC: Dr. Rosie Noriega; Dr. Shukla * HISTORY AND PHYSICAL: DATE OF ADMISSION: 08/24/17 PRIMARY CARE PROVIDER: Dr. Rosie Noriega. CONSULTING NEUROLOGIST: Dr. Shukla. ATTENDING PHYSICIAN WHILE IN THE HOSPITAL: Dr. Trung Brewer * (report dictated by Craig Abernathy NP). CHIEF COMPLAINT: Altered mental status. HISTORY OF PRESENT ILLNESS: Mr. Mata is a 62-year-old male patient with a history of alcoholic liver cirrhosis, also carries a history of EtOH abuse, ascites, history of subdural hematoma, hypertension, asthma, depression, history of elevated lactic acidosis, low magnesium, seizures, history of CVA, asthma, and hypertension, comes in to our ER today. He was last seen back at his baseline yesterday around noontime. The patient was conversive with his father. He was walking around the home. He went to a haircut appointment. He did well with that. He was near his baseline in terms of mentation; however, this morning, the father went over to check on him; it was noted that he had a blank stare. He was not responsive whatsoever. His father immediately called 911. There were no reports of myoclonic, tonic clonic type movements. No reports of incontinence of urine. In discussion with the patient, he does not recall this . He cannot really answer any questions except simple yes/no questions. He is very altered. He is confused to place and time. The family says that about 2 weeks ago, he was evaluated here, was diagnosed with bronchitis and was placed on antibiotics, which is unsure if he finished his medications or even took them. He was prescribed doxycycline. He came to the ER, was evaluated. Because of his altered mental status, we were asked to evaluate for admission. PAST MEDICAL HISTORY: He has a history of: 1. Liver cirrhosis. 2. EtOH abuse. 3. Ascites. 4. Subdural hematoma. 5. Hypertension. 6. Asthma. 7. Depression. 8. Lactic acidosis. 9. Hypomagnesemia. 10. Seizures. 11. CVA. PAST SURGICAL HISTORY: He has had 1. Cholecystectomy. 2. Appendectomy. 3. Tonsillectomy. 4. ORIF of the ankle. MEDICATIONS: The home meds according to the list that we were able to obtain include: 1. Thiamine 100 mg p.o. daily. 2. Multivitamin 1 tablet daily. 3. Lactulose 30 cc p.o. t.i.d. as needed. 4. B12 500 mcg daily. 5. Diclofenac 1 application topically four times a day as needed. 6. Neurontin 300 mg p.o. at bedtime as needed. 7. Spironolactone 50 mg daily. 8. Lasix 40 mg daily. 9. Omeprazole 20 mg daily. 10. Ventolin 2 puffs inhaled every 4 hours as needed. 11. Atarax 25 mg p.o. b.i.d. as needed. 12. Rifaximin 550 mg p.o. b.i.d. 13. Propranolol 10 mg daily. 14. Phenytoin 200 mg at bedtime, 100 mg in the morning. 15. Folic acid 1 mg daily. 16. Lexapro 10 mg daily. 17. Epinephrine 0.3 mg IM once as needed for reaction. 18. Tramadol 50 mg every 6 hours as needed. ALLERGIES TO MEDICATIONS: Include ZOLOFT and ATIVAN. FAMILY HISTORY: Mother had a history of CVA. Father is healthy. SOCIAL HISTORY: Former smoker. History of alcoholism. Says his last drink was on Sunday. His surrogate decision maker is his sister, Cassandra. REVIEW OF SYSTEMS: Unable to be obtained due to the altered mental status. PHYSICAL EXAMINATION GENERAL: At this time, Mr. Mata is a 62-year-old male patient. He appears to be well nourished, well developed. He is sitting in the ED stretcher. He does not appear to be in any acute respiratory distress. Awakens to his name only. VITAL SIGNS: Reveal blood pressure 129/57, pulse 110, respirations 15, O2 sat 95%, temperature of 98.9. HEENT: Head: Atraumatic. Eyes: Pupils reactive to light. Throat: Oral mucosa appears to be dry. No oropharyngeal erythema. NECK: Supple. LUNGS: Clear to auscultation. No wheezes, rales, or rhonchi. HEART: Sounds S1, S2. Regular rate and rhythm. No murmurs, rubs, or gallops. ABDOMEN: Soft, flat. He does have an umbilical hernia. He has some ascites. EXTREMITIES: Pulses were 2+ throughout. He had no peripheral edema. He can move his extremities, it is difficult to assess strength as he is really not following complex commands at this point. NEUROLOGIC: He awakens to his name being called. He answers simple yes/no questions. He does not know the date, does not know the president. He thinks he is at [facility]. He knows his name. His tongue was midline. He had no obvious facial drooping. He had no gross obvious focal deficit. Again, follows very simple commands. At this point, neuro exam is difficult because of his underlying mentation. SKIN: Intact. DIAGNOSTIC STUDIES/LAB DATA: WBC of 8.9, RBC of , hemoglobin of 9.4, hematocrit 29, platelet count of 167. INR 1.21, PTT of 33.5. Blood gas revealed a pH of 7.37, PCO2 of 33, PO2 of 56, bicarb of 25. Sodium 132, potassium 4.4, chloride 101, bicarb 24, BUN 10, creatinine 1.01, glucose 194, lactate 4, calcium 8.8. Total bili 2.3, AST 47, ALT 20, alk phos 141. Ammonia 53. CK pending. Troponin 0.03. CRP of 15. Albumin of 3.2. Urine: Trace ketones, 1+ glucose. Toxicology: He had a low phenytoin level. He had a brain CT obtained today, which revealed bifrontal encephalomalacia, unchanged from previous exam, no obvious hemorrhage is noted, although evaluation is limited by motion artifact. EKG obtained today shows sinus tachycardia, rate of 108, no ST elevations or T- wave inversions were noted. It is reviewed to a previous EKG, is similar with the exception that the rate is faster now. Chest x-ray obtained today, on my review, I did not appreciate any infiltrates or effusions. Radiology read this as no active cardiopulmonary disease. Old medical records were reviewed. ASSESSMENT AND PLAN: Mr. Mata is a 62-year-old male patient who comes in to our ER today with complaints of altered mental status. He will be admitted under inpatient status for: 1. Altered mental status. Etiology is unclear. Certainly, he could have underlying upper respiratory infection or viral infection. He is exposed to multiple people who has been ill including legionella and possible flu as his is a riding teacher. Plan is to go ahead and check blood cultures, urine cultures, rapid flu, legionella antigen, Streptococcus pneumoniae antigen. He was coughing on my exam. Lungs sounded clear, no obvious rhonchi, but because of the cough and the fact that he was recently on antibiotics, I am going to go ahead and put him on azithromycin, Rocephin to cover upper respiratory and possible pulmonary pathology. Other option that could be causing altered mental status could be seizure. I did touch base with Dr. Shukla. We are going to load him with Keppra, I will put him on 500 b.i.d. and get an EEG. Neurology will be following. I did order neuro checks every 2 hours and we will follow him closely. I am checking a CK. His lactate was mildly elevated, but that is pretty near his baseline. He does appear to be dehydrated, which certainly could be contributing to this. So, I am going to hydrate him and we will follow him closely. There has been no change in medications that we are aware of and I am going to go get a drug screen as well to make sure there are not any other substances that may be contributing to this. 2. History of liver cirrhosis. We will continue his medications as prescribed. 3. History of EtOH abuse. We ordered [facility] protocol, that was Valium. Family says he cannot take Valium. 4. History of ascites. Does not appear to be necessarily needing a tap at this point. He is not really having any abdominal pain. I do not believe there is any spontaneous bacterial peritonitis. We will follow. 5. History of subdural hematoma. CT of the brain was negative. 6. Hypertension. Continue meds as prescribed. 7. Asthma. P.r.n. albuterol has been made available. 8. Depression. Continue supportive care. 9. History of cerebrovascular accident. Continue secondary prevention. 10. History of seizures. Again, I am getting an EEG and Neurology input. I have ordered seizure precautions. 11. Possible aspiration. It was noted that the patient was given abbi shaheen here and shortly after he was coughing and became tachycardic. I did make him n.p.o. pending a speech eval particularly until his mentation improves. 12. DVT prophylaxis. He did recently have a hemoperitoneum. So, I am going to hold off on heparin subcu. We will go ahead and just put him on SCDs. 13. Code status. Full code. 14. Fluids, electrolytes, and nutrition. N.p.o. pending swallow eval. I did order normal saline at 100 an hour. TIME SPENT: On admission 60 minutes, greater than half the time was spent face- to- face with the patient obtaining my history and physical, the other half time was spent going over the plan of care with the patient and implementing the plan of care. I did discuss this plan of care with my attending, Dr. Brewer; he is in agreement. CRAIG ABERNATHY, TERRAZZO ROLLER [id number]/CPS #: [id number]
[2017-08-24] MEDS: traMADol TAB* 50 MG PO PRN (23:37)
--- NOTE | 2017-08-25 01:01 | CONS ---
NEUROLOGY CONSULTATION: DATE OF CONSULT: 08/24/17. LOCATION: He is in room 439. REFERRING PROVIDER: DYLAN Roe CHIEF COMPLAINT: Unresponsiveness. HISTORY OF PRESENT ILLNESS: Jarad Mata is a 62-year-old man with a history of alcoholism, epilepsy, an intracranial hemorrhage who was found unresponsive I believe by his father today apparently at his place of residence. The patient is unresponsive and he is the only one in the room currently, but that is the verbal history I given when I spoke with Dr. Calvin. He has remained unresponsive, but apparently, there was some improvement over time according to his nurse and in speaking with the emergency room providers. He has a history of epilepsy and he has had an intracranial hemorrhage and is supposed to be on the phenytoin and he did have a blood level of 5.9 when he came in today. He also had an undetectable serum alcohol level. I was just in the emergency room on 08/04/17 with breathing problems and found to have bronchitis and reported drinking 2 to 3 beers per day. He carries a diagnosis of alcoholic cirrhosis. PAST MEDICAL HISTORY: Otherwise notable for ascites secondary to alcoholic cirrhosis, post traumatic subdural hematoma from a fall while intoxicated March 2017, hypertension, depression, chronically elevated lactic acid level, history of hypomagnesemia, history of seizures both associated with alcohol withdrawal and possibly without, cholecystectomy, appendectomy, fractured right ankle requiring surgery. CURRENT MEDICATIONS: 1. Thiamine 100 mg IV received in the emergency room, 100 mg p.o. b.i.d. thereafter. 2. Ceftriaxone 2 g received in the emergency department I believe. 3. Propranolol 10 mg p.o. q. day. 4. Zofran 4 mg IV q.6 hours p.r.n. nausea. 5. Omeprazole 20 mg p.o. q. day. 6. Keppra 1000 mg loading dose yet to be given. 7. Azithromycin 500 mg IV q. day. 8. Albuterol p.r.n. wheezing. ALLERGIES: He is said to be allergic to BEES, SERTRALINE, and LORAZEPAM. REVIEW OF SYSTEMS: The patient is able to respond when I evaluate him, but is pretty lethargic and dysarthric and it is hard to do a review of systems therefore. PHYSICAL EXAM: Temperature so far is normal at 97.8 axillary, blood pressure is running about 130 to 150 systolic over 50 to 60 diastolic, heart rate is running about 110 and seems regular. Respiratory rate is about 20 and oxygen saturation is 97% on room air. Skin is warm and moist. Neck is supple. Oral mucosa is moist and I do not see any oral trauma. Head is atraumatic as well. Lungs reveal some wheezing anterolaterally, bilaterally. Neuralgically, pupils react equally from about 4.5 down to 3 mm. Funduscopic exam revealed sharp pale discs bilaterally. Eye movements are roving until he is stimulated, at which point he does visually connect with the examiner and responds to visual threat bilaterally. Eye movements are choppy, but I do not see any sustained nystagmus. Facial musculature appears symmetric. Facial response to nasal tickle is symmetric. Speech is extremely dysarthric, but he is able to protrude his tongue in the midline. Motor exam reveals decreased muscle tone diffusely. He has antigravity strength of all limbs and some distal strength as well. He has asterixes bilaterally in the hands. Reflexes are hard to elicit in the lower extremities, grade 1 at the biceps, absent at the ankles. Plantars are equivocal bilaterally. He is somnolent and dysarthric and is able to say yes and no to a few questions and attempt sentences, which are hard to understand. He drifts off to sleep when not stimulated. DIAGNOSTIC STUDIES/LAB DATA: Includes a CT of the brain, which I reviewed and revealed bilateral frontal areas of encephalomalacia unchanged from his last spring CT scan. EEG done earlier in the emergency room reveals diffuse generalized slowing, but no epileptiform discharges. Laboratory data notable for CBC with a hemoglobin of 9.4, which is stable for him and a normal white blood cell and platelet count. INR is elevated at 1.21. Chemistry profile notable for sodium 132, glucose 194, lactic acid 4.2. AST is mildly elevated at 47, ALT normal at 20, ammonia borderline elevated at 53. Bilirubin is elevated at 2.3. Urinalysis is notable for pH of 5.0, otherwise fairly unremarkable urinalysis. There is 1+ glucose. Phenantoin levels and alcohol levels are mentioned above. IMPRESSION: Impression is that he may be postictal. He also very likely has a component of hepatic encephalopathy in spite of his borderline elevated ammonia. He has been started on lactulose and is receiving Keppra currently. I would continue Keppra at 500 mg twice per day tomorrow and if he is taking p.o. , it could be switched to oral formulation. If he recovers to where he is able to be discharged and it appears that this may have been from a seizure, he may be better served on extended release levetiracetam in terms of compliance. I would continue daily thiamine either parenterally or orally if he is able to take oral. He is currently on a diazepam [facility] protocol. [id number]/[facility] #: [id number] [facility]
[2017-08-25] MEDS: Omeprazole CAP* 20 MG PO SCH (07:36)
--- NOTE | 2017-08-25 07:36 | EEG ---
ELECTROENCEPHALOGRAPHY: DATE OF STUDY: 08/24/17 He is in the emergency room, to be admitted. REFERRING PROVIDER: DYLAN Roe. CHIEF COMPLAINT: Unresponsiveness or diminished responsiveness. CLINICAL PROBLEM: The patient has a history of epilepsy, intracranial hemorrhage, and alcoholism. REPORT: This 16-channel EEG is remarkable for background activity consistent of diffuse slow rhythms particularly centrally and bifrontally. Rhythms are mainly in the delta range with intermingled beta rhythms of low amplitude. Occasionally, there is a posterior alpha rhythm approximating 8 to 9 cycles per second and very low abundance. When the patient is aroused later in the recording, slower rhythms decreased in amplitude and alpha rhythms become slightly more abundant but generally backgrounds remain slow and disorganized. There are no focal or epileptiform discharges during this recording. CLINICAL IMPRESSION: Abnormal EEG due to generalized slowing and disorganization of background rhythms. There are no epileptiform features to this recording. [id number]/[facility] #: [id number] MTDD
[2017-08-25] MEDS: CMC:Escitalopram (NF) 10 MG TAB PO SCH (08:38)
[2017-08-25] MEDS: Folic Acid TAB* 1 MG PO SCH (08:38)
[2017-08-25] MEDS: RiFAXimin* 550 MG TAB PO SCH ×2 (08:38→22:31)
[2017-08-25] MEDS: Propranolol TAB* 10 MG PO SCH (08:38)
[2017-08-25] MEDS: Cyanocobalamin TAB* 500 MCG PO SCH (08:38)
[2017-08-25] MEDS: Multivitamins/Minerals TAB PO SCH (08:38)
[2017-08-25] MEDS: levETIRAcetam 500 MG IVPREMIX* 500 MG/100 ML BAG IV SCH (08:39)
[2017-08-25] MEDS: Thiamine TAB* 100 MG TAB PO SCH (08:39)
[2017-08-25] MEDS ORDERED: Phenytoin CHEW TAB(*) 50 MG PO SCH (09:00)
[2017-08-25 09:31] LABS: Hematocrit 27 % (42-52); Hemoglobin 8.6 g/dl (14.0-18.0); Mean Corpuscular HGB Conc 32 g/dl (31-36); Mean Corpuscular Hemoglobin 29 pg (27-31); Mean Corpuscular Volume 90 fL (80-94); Mean Platelet Volume 7 um3 (7.4-10.4); Red Blood Count 2.97 10^6/ul (4.0-5.4); Red Cell Distribution Width 20 % (10.5-15); White Blood Count 8.2 10^3/ul (3.5-10.8)
[2017-08-25 09:50] LABS: BUN/Creatinine Ratio 11.4 (8-20); Calcium 8.7 mg/dL (8.6-10.3); EGFR African American 113.6 (>60); EGFR Non-African American 88.3 (>60)
[2017-08-25] MEDS: traMADol TAB* 50 MG PO PRN ×2 (11:20→16:20)
[2017-08-25] MEDS ORDERED: cefTRIAXone VIAL(*) 1,000 MG in NS 0.9% 50 ML* 50 ML IVPB SCH (13:00)
--- NOTE | 2017-08-25 13:00 | PN ---
Subjective Date of Service: 08/25/17 Interval History: Patient seen this morning. Says he feels back to baseline. He is alert and oriented, does not remember much of yesterday until being up on the medical floor here. Denies abdominal pain. Feels a bit unsteady on his feet. Family History: Unchanged from Admission Social History: Unchanged from Admission Past Medical History: Unchanged from Admission Objective Active Medications: Albuterol (Ventolin Hfa Inhaler*) 2 puff INH Q4H PRN PRN Reason: SOB/WHEEZING Cyanocobalamin (Vitamin B12 Tab*) 500 mcg PO DAILY ON LICENSE OF [facility] Last Admin: 08/25/17 08:38 Dose: 500 mcg Diazepam (Valium Tab(*)) 0 - 30 mg PO .PER [facility] PROTOCOL AILYN PRN Reason: Protocol Escitalopram Oxalate (Lexapro (Nf)) 10 mg PO DAILY ON LICENSE OF [facility] Last Admin: 08/25/17 08:38 Dose: 10 mg Folic Acid (Folvite Tab*) 1 mg PO DAILY ON LICENSE OF [facility] Last Admin: 08/25/17 08:38 Dose: 1 mg Sodium Chloride (Ns 0.9% 1000 Ml*) 1,000 mls @ 100 mls/hr IV PER RATE ON LICENSE OF [facility] Last Admin: 08/24/17 15:05 Dose: 100 mls/hr Ceftriaxone Sodium 1,000 mg/ (Sodium Chloride) 50 mls @ 200 mls/hr IVPB Q24H ON LICENSE OF [facility] Last Admin: 08/25/17 12:25 Dose: 200 mls/hr Azithromycin 500 mg/ Sodium (Chloride) 250 mls @ 250 mls/hr IVPB Q24H ON LICENSE OF [facility] Last Admin: 08/24/17 16:41 Dose: 250 mls/hr Lactulose (Lactulose*) 30 ml PO TID ON LICENSE OF [facility] Last Admin: 08/25/17 08:39 Dose: 30 ml Levetiracetam (Keppra Tab*) 500 mg PO BID ON LICENSE OF [facility] Multivitamins/Minerals (Theragran/Minerals Tab*) 1 tab PO DAILY ON LICENSE OF [facility] Last Admin: 08/25/17 08:38 Dose: 1 tab Omeprazole (Prilosec Cap*) 20 mg PO DAILY@0730 ON LICENSE OF [facility] Last Admin: 08/25/17 07:36 Dose: 20 mg Ondansetron HCl (Zofran Inj*) 4 mg IV Q6H PRN PRN Reason: NAUSEA Last Admin: 08/25/17 08:38 Dose: 4 mg Propranolol HCl (Inderal Tab*) 10 mg PO DAILY ON LICENSE OF [facility] Last Admin: 08/25/17 08:38 Dose: 10 mg Rifaximin (Xifaxan*) 550 mg PO BID ON LICENSE OF [facility] Last Admin: 08/25/17 08:38 Dose: 550 mg Thiamine HCl (Vitamin B-1 Tab*) 100 mg PO DAILY ON LICENSE OF [facility] Last Admin: 08/25/17 08:39 Dose: 100 mg Tramadol HCl (Ultram*) 50 mg PO Q6HR PRN PRN Reason: PAIN Last Admin: 08/25/17 11:20 Dose: 25 mg Vital Signs 08/24/17 08/24/17 08/24/17 13:30 14:00 14:30 Temperature Pulse Rate 109 111 112 Respiratory 18 19 18 Rate Blood Pressure 124/49 129/48 134/50 (mmHg) O2 Sat by Pulse 96 96 96 Oximetry 08/25/17 08/25/17 11:08 11:20 Temperature 97.7 F Pulse Rate 83 Respiratory 20 18 Rate Blood Pressure 126/61 (mmHg) O2 Sat by Pulse 94 Oximetry Oxygen Devices in Use Now: None Appearance: Middle-aged, M, laying in bed in NAD Eyes: No Scleral Icterus Ears/Nose/Mouth/Throat: Mucous Membranes Moist Neck: NL Appearance and Movements; NL JVP Respiratory: Symmetrical Chest Expansion and Respiratory Effort, Clear to Auscultation Cardiovascular: NL Sounds; No Murmurs; No JVD, RRR Abdominal: - - Soft, mild distension, umbilical hernia, BS+, mild ascites Lymphatic: No Cervical Adenopathy Extremities: No Edema Skin: No Rash or Ulcers Neurological: Alert and Oriented x 3 Result Diagrams: 08/25/17 09:21 08/25/17 09:20 Microbiology and Other Data: Microbiology 08/24/17 15:57 Influenza Types A,B Antigen (DELFINO) - Final Nasal Specimen received for Influenza A/B Molecular testing Assess/Plan/Problems-Billing Assessment: AMS likely 2/2 seizure and post-ictal state in a 62 yo M with hx of cirrhosis, seizure disorder, HTN, EtOH abuse - Patient Problems (1) Altered mental status Current Visit: Yes Comment: Seems to have recovered back to baseline making this c/w seizure and post-ictal state. EEG did not show any epileptiform activity. Apprecaite Neurology assistance, continue with Keppra 500 mg BID (2) Cirrhosis Current Visit: No Comment: Seems to be compensated, no hepatic encephalopathy. Hold diuretics for today, will stop IVF. Continue Lactulose and Rifaximin. Continue Propranolol. (3) Alcohol abuse Current Visit: No Comment: No S/S of acute withdrawal at this point. Continue MVI, folate, and thiamine. Continue to monitor on WAM. (4) Bronchitis Current Visit: Yes Comment: Recently diagnosed with bronchitis, said ABx gave him diarrhea so he stopped them. Not having much cough, will stop ABx. (5) DVT prophylaxis Current Visit: No Comment: SCDs
[2017-08-25] MEDS: Azithromycin IV(*) 500 MG in NS 0.9% 250 ML* 250 ML IVPB SCH (16:33)
[2017-08-25] MEDS: levETIRAcetam TAB* 500 MG PO SCH (22:30)
[2017-08-26] MEDS: traMADol TAB* 50 MG PO PRN ×2 (02:50→10:07)
--- NOTE | 2017-08-26 04:26 | PN ---
PROGRESS NOTE: DATE OF PROGRESS NOTE: 08/25/17 LOCATION: He is 62-year-old gentleman in room 439, bed 1. SUBJECTIVE: Overnight, he has done well. He is much more clear this morning, alert and oriented x3. He notes that he has not been compliant with his medication. He denies any recent alcohol use. He states that he smoked marijuana one time last week. He notes that he does have a history of seizures. He had a stroke or bleed in the past, likely post-traumatic subdural hematoma in March of 2017. He also has a history of alcoholic cirrhosis. Yesterday, he was brought into the hospital, unresponsive, although he seemed to improve over time in the ER and was speaking some. He has no recollection of the event yesterday. He denies any current pain, but he feels that he did have a seizure. He notes not taking his Dilantin as directed. He did have an EEG done yesterday, which was abnormal due to generalized slowing, but no epileptiform features noted. Overnight, he has had no new symptoms, feels much better. OBJECTIVE: He has been afebrile. Current temp is 98.3, pulse is 92, respiratory rate of 18, pulse ox 96%, blood pressure 130s/60s. In general, he is a well- nourished, well-developed gentleman lying in his hospital bed, sleeping, but he awakens easily. He is pleasant, well-dressed, well-groomed. HEENT: He is normocephalic, atraumatic. Sclerae are dirty, but are nonicteric. Mucous membranes are moist. Oropharynx is clear. Neck is supple. Chest: Clear to auscultation bilaterally. Cardiovascular is regular rate and rhythm. Abdomen is distended. Extremities: No significant cyanosis or edema. On neurologic exam, he is awake, alert, and oriented x3. His speech is fluent. There is no dysarthria. Repetition is intact. Cranial nerves II through XII. Pupils are equally round and reactive to light. Extraocular muscles are intact. His visual mc are full. Face is symmetric. Sensation is intact. Tongue is midline. His palate raises symmetrically. He spontaneously moves all extremities, antigravity, 5/5 throughout. No drift. DTRs are 1+ and symmetric in the upper and lower extremities. Equivocal Babinski's. Sensation: He has diminished to light touch and pinprick in the feet bilaterally. Chronic in nature. There is no asterixis noted on examination today, although it was seen yesterday. MEDICATIONS: Current medications, he is on: 1. Albuterol. 2. Azithromycin. 3. Ceftriaxone. 4. Vitamin B12. 5. Valium. 6. WAM protocol. 7. Lexapro. 8. Folic acid. 9. Lactulose. 10. Keppra 500 mg b.i.d. 11. Multivitamins. 12. Omeprazole. 13. Zofran. 14. Propranolol. 15. Rifaximin. 16. Thiamine. 17. Tramadol p.r.n. DIAGNOSTIC STUDIES/LABORATORY DATA: Lab work this morning, CBC with diff shows a hemoglobin of 8.6, hematocrit of 27, platelet count of 124. INR of 1.19. Chemistry, sodium of 132, glucose of 185, ammonia 52 yesterday. Phenytoin level , yesterday 5.9. Alcohol less than 10. IMAGING: As noted in the initial consultation. ASSESSMENT AND PLAN: Mr. Mata is a 62-year-old gentleman who has a history of a traumatic subdural hematoma in March of 2017. He also has a history of seizures, was previously on Dilantin. He sees Dr. Xiong, came into the hospital with a low Dilantin level and notes this morning that he has been noncompliant. Dr. Shukla saw him yesterday in the ER and switched him to Keppra, as this is a safer medication for him given his history of alcoholic cirrhosis. This morning, he is much improved, most likely postictal yesterday, although there may have been some encephalopathy as well. We had a long discussion this morning about the need to be compliant with his medication. I told him that he will now be on a Keppra. We will switch him to Keppra p.o. 500 mg b.i.d. today. He has an appointment with Dr. Xiong in September, at that point he may want to consider switching him to the once a day Keppra if he continues to have some compliance issues, although he notes to me that he is going to be very careful with his medications now as he understands the ramifications of not taking them. From my standpoint, he is safe for discharge with appropriate followup. I defer to Medicine regarding evaluation of his other medical issues and the timing of his discharge. I will follow along if necessary. [id number]/[facility] #: [id number] MARILUZ
[2017-08-26] MEDS: Multivitamins/Minerals TAB PO SCH (08:09)
[2017-08-26] MEDS: Thiamine TAB* 100 MG TAB PO SCH (08:09)
[2017-08-26] MEDS: CMC:Escitalopram (NF) 10 MG TAB PO SCH (08:09)
[2017-08-26] MEDS: Omeprazole CAP* 20 MG PO SCH (08:12)
[2017-08-26] MEDS: levETIRAcetam TAB* 500 MG PO SCH (08:12)
[2017-08-26] MEDS: RiFAXimin* 550 MG TAB PO SCH (08:12)
[2017-08-26] MEDS: Propranolol TAB* 10 MG PO SCH (08:13)
[2017-08-26] MEDS: Cyanocobalamin TAB* 500 MCG PO SCH (08:13)
[2017-08-26] MEDS: Folic Acid TAB* 1 MG PO SCH (08:13)
[2017-08-26 09:56] VITALS: BP 126/53
--- NOTE | 2017-08-26 11:17 | DCNOTE ---
Patient seen this morning. Says he is feeling much better physically and mentally today. Was a bit unsteady yesterday walking around with nursing, said he felt better when he walked around again with his sister later and feels good today. On exam, RRR, s1 and s2 present, no m/g/r, abd soft, distended, umbilical hernia , non-tender, lungs CTA B/L, no w/r/r, no LE edema Will discharge home today on Keppra 500 mg BID as per Neuro, stopping Dilantin. Has f/u appt with Dr. Xiong scheduled. F/U with PCP.
--- NOTE | 2017-08-27 00:38 | DS ---
CC: Dr. Rosie Noriega; Yasmin Xiong MD DISCHARGE SUMMARY: DATE OF ADMISSION: 08/24/17 DATE OF DISCHARGE: 08/26/17 PRIMARY CARE PHYSICIAN: Dr. Rosie Noriega. PRINCIPAL DISCHARGE DIAGNOSIS: Altered mental status, likely secondary to seizure, postictal state. SECONDARY DIAGNOSES: 1. Seizure disorder. 2. Cerebrovascular accident. 3. Liver cirrhosis. 4. Alcohol abuse. 5. History of subdural hematoma. 6. Hypertension. 7. Asthma. 8. Depression. DISCHARGE MEDICATION REGIMEN: 1. Thiamine 100 mg by mouth daily. 2. Multivitamin 1 tablet by mouth daily. 3. Lactulose 30 mL by mouth 3 times daily as needed, titrate to 2 to 3 stools. 4. Vitamin B12 500 mcg by mouth daily. 5. Voltaren gel 1 application topical 4 times daily as needed for pain. 6. Gabapentin 300 mg by mouth at bedtime as needed for pain. 7. Spironolactone 50 mg by mouth daily. 8. Lasix 40 mg by mouth daily. 9. Omeprazole 20 mg by mouth daily. 10. Albuterol 2 puffs inhaled every 4 hours as needed for shortness of breath or wheezing. 11. Hydroxyzine 25 mg by mouth 2 times daily as needed for itching. 12. Rifaximin 550 mg by mouth 2 times daily. 13. Propranolol 10 mg by mouth daily. 14. Folic acid 1 mg by mouth daily. 15. Lexapro 10 mg by mouth daily. 16. Epinephrine 0.3 mg IM once as needed for anaphylactic shock. 17. Tramadol 50 mg by mouth every 6 hours as needed for pain. 18. Levetiracetam 500 mg by mouth 2 times daily. STUDIES DONE DURING HOSPITALIZATION: Chest x-ray, impression: No active cardiopulmonary disease. C T of the brain, impression: Bifrontal encephalomalacia, unchanged from previous exam. No obvious he morrhage is noted, although evaluation is limited by motion artifact. CT of the cervical spine witho ut contrast, impression: Straightening of the cervical lordosis, degenerative disk disease, and oste oarthritis. There is multilevel neuroforaminal narrowing, mild narrowing of the central canal at C6- C7. EEG, impression: Abnormal EEG due to generalized slowing and disorganization of background rhyt hms. There are no epileptiform features to this recording. CONSULTANTS DURING HOSPITALIZATION: Dr. Chris Shukla, Neurology. HISTORY OF PRESENT ILLNESS AND HOSPITAL SUMMARY: Please see the full history and physical by Craig moyer NP for full details. Briefly, Mr. Mata is a 62-year-old male with a past medical history of cirrhosis, alcohol abuse, and seizure disorder as well as the remainder of his medical history as abo ve, who presented to the hospital after his father found him with a blank stare and poorly responsive at the patient's home. He had apparently been well earlier in the day. There is no report of any s eizure-like activity. The patient underwent imaging in the emergency department that was largely unr emarkable. His ammonia level was normal. The patient was evaluated by Dr. Shukla of Neurology, who felt that the patient may likely be postictal from an unwitnessed seizure at home. The patient's Dil antin level which he was supposed be on was low at 5.9. The patient was started on IV Keppra and by the following day, he had significant improvement in his mental status and was essentially back to jamil moses. He was seen by Dr. Alatorre of Neurology, he switched him to p.o. Keppra. Upon further discussi on with the patient, he states that he had essentially stopped most of his medications the previous w little traverse due to ongoing diarrhea that he attributes to the lactulose in combination with an antibiotic he received in the ED from diagnosis of bronchitis. The patient was still a bit unstable on his feet, so he was monitored for another night and ambulated with nursing with improvement by the following day. He was counseled on the importance of continuin g his medications just as prescribed. He will be sent home on 500 mg by mouth 2 times daily of Keppr a and has an appointment to follow up with Dr. Xiong in the next month or so. The patient should als o follow up with his PCP in the next week or so. TIME SPENT: Total time spent on this discharge was 45 minutes. This is a summary of the hospitalization, please see the full medical record for further details. [id number]/[facility] #: [id number]
== END 2017-08-26 13:32 | disposition home health service (06) | DRG 53 ==
LOC: ED 09:13 → MEDTELE 13:12
PROVIDERS: ADMIT Hospitalist; ATTEND Hospitalist
PROC: 4A00X4Z Measurement of Central Nervous Electrical Activity, External Approach (ICD-10-PCS; principal; 2017-08-24)
DX: G40.909 Epilepsy, unspecified, not intractable, without status epilepticus (principal); G93.89 Other specified disorders of brain; K70.30 Alcoholic cirrhosis of liver without ascites; E11.9 Type 2 diabetes mellitus without complications; I10 Essential (primary) hypertension; J45.909 Unspecified asthma, uncomplicated; F32.9 Major depressive disorder, single episode, unspecified; J42 Unspecified chronic bronchitis; E78.00 Pure hypercholesterolemia, unspecified; M17.0 Bilateral primary osteoarthritis of knee; F10.20 Alcohol dependence, uncomplicated; Y90.9 Presence of alcohol in blood, level not specified; R47.1 Dysarthria and anarthria; K42.9 Umbilical hernia without obstruction or gangrene; M40.50 Lordosis, unspecified, site unspecified; M50.30 Other cervical disc degeneration, unspecified cervical region; Z87.891 Personal history of nicotine dependence; Z88.8 Allergy status to other drugs, medicaments and biological substances; Z91.030 Bee allergy status; Z86.73 Personal history of transient ischemic attack (TIA), and cerebral infarction without residual deficits; Z90.49 Acquired absence of other specified parts of digestive tract; Z82.3 Family history of stroke; Z91.14 Patient's other noncompliance with medication regimen
CPT/HCPCS: 36415; 70450; 71010; 72125; 80048; 80053; 80185; 80320; 81003; 82140; 82550; 82803; 83605; 84484; 85025; 85610; 85730; 86140; 87040; 87502; 93005; 95819; A9270-GY; G0480; J0456; J0696; J2405; J3360; J3370; J3411

== ENCOUNTER 2018-01-31 17:57 | Emergency (ER) | payer BC, OTHER ==
[2018-01-31 20:40] LABS: INR 1.44 (0.77-1.02)
[2018-01-31 20:43] LABS: EGFR Non-African American 86.1 (>60)
[2018-01-31 21:51] LABS: ABS Basophils 0 10^3/ul (0-0.2); ABS Eosinophils 0.2 10^3/ul (0-0.6); ABS Lymphocytes 1.6 10^3/ul (1.0-4.8); ABS Monocytes 0.9 10^3/ul (0-0.8); ABS Neutrophils 2.8 10^3/ul (1.5-7.7); ABS Nucleated RBC 0 10^3/ul; Hematocrit 28 % (42-52); Hemoglobin 9.1 g/dl (14.0-18.0); Mean Corpuscular HGB Conc 33 g/dl (31-36); Mean Corpuscular Hemoglobin 30 pg (27-31); Mean Corpuscular Volume 91 fL (80-94); Nucleated Red Blood Cells % 0; Red Blood Count 3.04 10^6/ul (4.0-5.4); Red Cell Distribution Width 28 % (10.5-15); White Blood Count 5.4 10^3/ul (3.5-10.8)
[2018-01-31 22:02] VITALS: BP 123/73
[2018-01-31 22:33] LABS: Mean Platelet Volume 8.3 um3 (7.4-10.4); Platelet Count 72 10^3/ul (150-450)
[2018-01-31 22:36] LABS: Monocytes % 17 % (0-7)
--- NOTE | 2018-02-01 10:25 | ED ---
Louis Garay Stephanie, scribed for Edgard Mckeonuel on 01/31/18 at 2001 . Complex/Multi-Sys Presentation - HPI Summary HPI Summary: The pt is a 62 y/o M presenting to the ED with c/o bleeding from hernia that occurred at 18:03 today. The pt denies abd pain. He bent over to turkey picker his dog and when he stood up, he states he saw a large puddle of blood on the floor. - History Of Current Complaint Chief Complaint: EDBleedingDisorder Time Seen by Provider: 01/31/18 19:28 Hx Obtained From: Patient Onset/Duration: Sudden Onset, Lasting Minutes, Resolved Timing: Intermittent, Lasting:, Minutes Severity Currently: Mild Aggravating Factor(s): bending down to turkey picker his dog Associated Signs And Symptoms: Negative: Abdominal Pain - Allergies/Home Medications Allergies/Adverse Reactions: Allergies Allergy/AdvReac Type Severity Reaction Status Date / Time lorazepam [From Ativan] Allergy See Comment Verified 01/31/18 18:06 sertraline Allergy Rash And Verified 01/31/18 18:06 Itching BEES Allergy Mild Hives Uncoded 08/04/17 09:19 Home Medications: Home Medications levETIRAcetam TAB* [Keppra TAB*] 500 mg PO BID 01/31/18 [History Confirmed 01/31] PMH/Surg Hx/FS Hx/Imm Hx Endocrine/Hematology History: Reports: Hx Diabetes - elevated glucose after acute liver failure - diet controlled Denies: Hx Anticoagulant Therapy, Hx Thyroid Disease, Hx Anemia, Hx Unexplained Bleeding Cardiovascular History: Reports: Hx Hypercholesterolemia, Hx Hypertension Denies: Hx Aneurysm, Hx Angina, Hx Angioplasty, Hx Auto Implanted Cardiovert Defib, Hx Cardiac Arrest, Hx Cardiomegaly, Hx Congenital Heart Disease, Hx Congestive Heart Failure, Hx Coronary Artery Disease, Hx Deep Vein Thrombosis, Hx Embolism, Hx Hypotension, Hx Pacemaker/ICD, Hx Peripheral Vascular Disease, Hx Rheumatic Fever, Hx Syncope, Hx Valvular Heart Disease, Other Cardiovascular Problems/Disorders Respiratory History: Reports: Hx Asthma, Hx Chronic Bronchitis, Hx Seasonal Allergies - hay fever Denies: Hx Chronic Obstructive Pulmonary Disease (COPD), Hx Cystic Fibrosis, Hx Lung Cancer, Hx Pleural Effusion, Hx Pneumonia, Hx Pulmonary Edema, Hx Pulmonary Embolism, Hx Sleep Apnea, Other Respiratory Problems/Disorders GI History: Reports: Hx Cirrhosis, Hx Gall Bladder Disease, Hx Hiatal Hernia, Hx Ulcer Denies: Hx Crohn's Disease, Hx Diverticulosis, Hx Gastroesophageal Reflux Disease, Hx Gastrointestinal Bleed, Hx Irritable Bowel, Hx Jaundice, Hx Obstructive Bowel, Hx Ileostomy, Hx Pyloric Stenosis, Other GI Disorders History: Denies: Hx Dialysis, Hx Renal Disease Musculoskeletal History: Reports: Hx Arthritis - both knees, Hx Orthopedic Injury Denies: Hx Back Problems, Hx Bursitis, Hx Congenital Bone Abnormalities, Hx Fibromyalgia, Hx Gout, Hx Osteoporosis, Hx Scoliosis, Hx Tendonitis, Other Musculoskeletal History Sensory History: Reports: Hx Contacts or Glasses Denies: Hx Cataracts, Hx Eye Injury, Hx Eye Prosthesis, Hx Glaucoma, Hx Legally Blind, Hx Macular Degeneration, Hx Vision Problem, Hx Deafness, Hx Hearing Aid, Hx Hearing Problem, Other Sensory Impairments Opthamlomology History: Reports: Hx Contacts or Glasses Denies: Hx Cataracts, Hx Eye Injury, Hx Eye Prosthesis, Hx Glaucoma, Hx Legally Blind, Hx Macular Degeneration, Hx Vision Problem, Other Sensory Impairments Neurological History: Reports: Hx Headaches, Hx Seizures - 1 year ago, Other Neuro Impairments/Disorders - Subdural Hematoma Denies: Hx Dementia Psychiatric History: Reports: Hx Depression, Hx Substance Abuse - ETOH Denies: Hx Anxiety, Hx Attention Deficit Hyperactivity Disorder, Hx Eating Disorder, Hx Panic Disorder, Hx Post Traumatic Stress Disorder, Hx Inpatient Treatment, Hx Community Mental Health Tx, Hx Schizophrenia, Hx Bipolar Disorder , Hx Suicide Attempt, Hx of Violent Episodes Against Others, Other Psychiatric Issues/Disorders - Surgical History Surgery Procedure, Year, and Place: RIGHT ANKLE ORIF. LEFT KNEE TENDON REPAIR. CHOLECYSECTOMY. APPENDECTOMY. TONSILECTOMY Hx Anesthesia Reactions: No Infectious Disease History: No Infectious Disease History: Denies: Hx Clostridium Difficile, Hx Hepatitis, Hx Human Immunodeficiency Virus (HIV), Hx of Known/Suspected MRSA, Hx Shingles, Hx Tuberculosis, History Other Infectious Disease, Traveled Outside the [place] in Last 30 Days - Family History Known Family History: Negative: Cardiac Disease, Diabetes - Social History Occupation: Employed Full-time Lives: With Family Alcohol Use: Daily Alcohol Amount: 2-3 beers per pt report Hx Substance Use: No Substance Use Type: Reports: None Hx Tobacco Use: Yes Smoking Status (MU): Former Smoker Type: Cigarettes Length of Time of Smoking/Using Tobacco: 5 years Have You Smoked in the Last Year: No Review of Systems Negative: Fever Negative: Abdominal Pain Negative: Slurred Speech All Other Systems Reviewed And Are Negative: Yes Physical Exam - Summary Physical Exam Summary: Appearance: Well appearing, no pain distress Skin: warm, dry, reflects adequate perfusion Head/face: normal Eyes: EOMI, SHAUN ENT: normal Neck: supple, non-tender Respiratory: CTA, breath sounds present Cardiovascular: RRR, pulses symmetrical Abdomen: non-tender, soft, dried blood underneath umbilical hernia, no active bleeding Bowel: present Musculoskeletal: normal, strength/ROM intact Neuro: normal, sensory motor intact, A&Ox3 Triage Information Reviewed: Yes Vital Signs On Initial Exam: Initial Vitals Temp Pulse Resp BP Pulse Ox 99.1 F 75 16 121/48 98 01/31/18 18:01 01/31/18 18:01 01/31/18 18:01 01/31/18 18:01 01/31/18 18:01 Vital Signs Reviewed: Yes Diagnostics - Vital Signs Vital Signs Temp Pulse Resp BP Pulse Ox 01/31/18 18:01 99.1 F 75 16 121/48 98 - Laboratory Lab Results: Lab Results 01/31/18 01/31/18 01/31/18 Range/Units 20:14 20:14 21:27 WBC 5.4 (3.5-10.8) 10^3/ul RBC 3.04 L (4.0-5.4) 10^6/ul Hgb 9.1 L (14.0-18.0) g/dl Hct 28 L (42-52) % MCV 91 (80-94) fL MCH 30 (27-31) pg MCHC 33 (31-36) g/dl RDW 28 H (10.5-15) % Plt Count 72 L (150-450) 10^3/ul MPV 8.3 (7.4-10.4) um3 Neut % (Auto) Not Reportable Lymph % (Auto) Not Reportable [place] % (Auto) Not Reportable Eos % (Auto) Not Reportable Baso % (Auto) Not Reportable Absolute Neuts (auto) 2.8 (1.5-7.7) 10^3/ul Absolute Lymphs (auto) 1.6 (1.0-4.8) 10^3/ul Absolute Monos (auto) 0.9 H (0-0.8) 10^3/ul Absolute Eos (auto) 0.2 (0-0.6) 10^3/ul Absolute Basos (auto) 0 (0-0.2) 10^3/ul Absolute Nucleated RBC 0 10^3/ul Neutrophils % 56 (38-83) % Lymphocytes % 23 L (25-47) % Reactive Lymphs % 2 (0-6) % Monocytes % 17 H (0-7) % Eosinophils % 2 (0-6) % Basophils % 0 (0-2) % Nucleated RBC % 0 Abs Neuts (Manual) 3.0 (1.5-7.7) 10^3/ul Abs Lymphs (Manual) 1.2 (1.0-4.8) 10^3/ul Abs Monocytes (Manual) 0.9 H (0-0.8) 10^3/ul Absolute Eos (Manual) 0.1 (0-0.6) 10^3/ul Abs Basophils (Manual) 0 (0-0.2) 10^3/ul Normal RBC Morphology Normal (Normal) Hem Pathologist Commnt INR (Anticoag Therapy) 1.44 H (0.77-1.02) APTT 36.1 (26.0-36.3) seconds Sodium 135 L (139-145) mmol/L Potassium TNP Chloride 98 L (101-111) mmol/L Carbon Dioxide 29 (22-32) mmol/L Anion Gap 8 (2-11) mmol/L BUN 6 (6-24) mg/dL Creatinine 0.90 (0.67-1.17) mg/dL Est GFR ( Amer) 110.7 (>60) Est GFR (Non-Af Amer) 86.1 (>60) BUN/Creatinine Ratio 6.7 L (8-20) Glucose 102 H (70-100) mg/dL Calcium 8.3 L (8.6-10.3) mg/dL Total Bilirubin 6.00 H (0.2-1.0) mg/dL AST TNP ALT 22 (7-52) U/L Alkaline Phosphatase 149 H (34-104) U/L Total Protein 6.2 L (6.4-8.9) g/dL Albumin 2.8 L (3.2-5.2) g/dL Globulin 3.4 (2-4) g/dL Albumin/Globulin Ratio 0.8 L (1-3) 01/31/ Range/Units 21:27 WBC (3.5-10.8) 10^3/ul RBC (4.0-5.4) 10^6/ul Hgb (14.0-18.0) g/dl Hct (42-52) % MCV (80-94) fL MCH (27-31) pg MCHC (31-36) g/dl RDW (10.5-15) % Plt Count (150-450) 10^3/ul MPV (7.4-10.4) um3 Neut % (Auto) Lymph % (Auto) [place] % (Auto) Eos % (Auto) Baso % (Auto) Absolute Neuts (auto) (1.5-7.7) 10^3/ul Absolute Lymphs (auto) (1.0-4.8) 10^3/ul Absolute Monos (auto) (0-0.8) 10^3/ul Absolute Eos (auto) (0-0.6) 10^3/ul Absolute Basos (auto) (0-0.2) 10^3/ul Absolute Nucleated RBC 10^3/ul Neutrophils % (38-83) % Lymphocytes % (25-47) % Reactive Lymphs % (0-6) % Monocytes % (0-7) % Eosinophils % (0-6) % Basophils % (0-2) % Nucleated RBC % Abs Neuts (Manual) (1.5-7.7) 10^3/ul Abs Lymphs (Manual) (1.0-4.8) 10^3/ul Abs Monocytes (Manual) (0-0.8) 10^3/ul Absolute Eos (Manual) (0-0.6) 10^3/ul Abs Basophils (Manual) (0-0.2) 10^3/ul Normal RBC Morphology (Normal) Hem Pathologist Commnt INR (Anticoag Therapy) (0.77-1.02) APTT (26.0-36.3) seconds Sodium (139-145) mmol/L Potassium 3.7 Chloride (101-111) mmol/L Carbon Dioxide (22-32) mmol/L Anion Gap (2-11) mmol/L BUN (6-24) mg/dL Creatinine (0.67-1.17) mg/dL Est GFR ( Amer) (>60) Est GFR (Non-Af Amer) (>60) BUN/Creatinine Ratio (8-20) Glucose (70-100) mg/dL Calcium (8.6-10.3) mg/dL Total Bilirubin (0.2-1.0) mg/dL AST 62 H ALT (7-52) U/L Alkaline Phosphatase (34-104) U/L Total Protein (6.4-8.9) g/dL Albumin (3.2-5.2) g/dL Globulin (2-4) g/dL Albumin/Globulin Ratio (1-3) Result Diagrams: 01/31/18 21:27 01/31/18 21:27 Lab Statement: Any lab studies that have been ordered have been reviewed, and results considered in the medical decision making process. Complex Multi-Symp Course/Dx Course Of Treatment: The pt is a 62 y/o M presenting to the ED with c/o bleeding from hernia that occurred at 18:03 today. The pt denies abd pain. - Diagnoses Differential Diagnoses/HQI/PQRI: Other - varicose veins rupture/cirrhosisis liver Provider Diagnoses: Cirrhosis of liver, Bleeding from varicose vein, Umbilical hernia Discharge - Sign-Out/Discharge Documenting (check all that apply): Discharge/Admit/Transfer - Discharge - Discharge Plan Condition: Stable Disposition: HOME Patient Education Materials: Cirrhosis (ED), Umbilical Hernia (ED) Referrals: Rosie Noriega MD [Primary Care Provider] - 2 Days Andi Victor MD [Medical Doctor] - 2 Days Additional Instructions: Return to the ED for any new or worsening symptoms. - Billing Disposition and Condition Condition: STABLE Disposition: HOME The documentation as recorded by the Louis segundo Stephanie accurately reflects the service I personally performed and the decisions made by Linda leigh Emmanuel.
== END 2018-01-31 22:02 | disposition home or self-care (01) ==
LOC: ED 17:57
DX: I83.899 Varicose veins of unspecified lower extremity with other complications (principal); K42.9 Umbilical hernia without obstruction or gangrene; K74.60 Unspecified cirrhosis of liver
CPT/HCPCS: 36415; 80053; 85025; 85060; 85610; 85730; 99282

== ENCOUNTER 2018-02-18 10:52 | Inpatient (IN) | payer BC ==
[2018-02-18] MEDS ORDERED: Thiamine IV* 100 MG, Folic Acid IV* 1 MG, Multiple Vitamin IV ADULT* 10 ML in NS 0.9% 1... IV ONE (14:31)
[2018-02-18 15:36] LABS: Hematocrit 27 % (42-52); Hemoglobin 8.6 g/dl (14.0-18.0); Mean Corpuscular HGB Conc 33 g/dl (31-36); Mean Corpuscular Hemoglobin 31 pg (27-31); Mean Corpuscular Volume 95 fL (80-94); Mean Platelet Volume 7.3 um3 (7.4-10.4); Platelet Count 85 10^3/ul (150-450); Red Blood Count 2.78 10^6/ul (4.0-5.4); Red Cell Distribution Width 26 % (10.5-15); White Blood Count 4.2 10^3/ul (3.5-10.8)
[2018-02-18 15:43] LABS: INR 1.52 (0.77-1.02)
--- NOTE | 2018-02-18 15:51 | RAD ---
CLINICAL HISTORY: Abdominal swelling in a with a history of alcoholic liver disease. Relevant surgical history includes cholecystectomy and appendectomy. COMPARISON: None TECHNIQUE: Noncontrast CT examination of the abdomen and pelvis from the lung bases through the initial tuberosities. FINDINGS: VISUALIZED LUNG BASES: The visualized lung bases are grossly clear. There is no pleural effusion. ABDOMEN AND PELVIS: Evaluation of the solid organs and vasculature is limited without intravenous contrast. There is a small amount of perihepatic fluid. The liver is homogenously hypodense relative to the spleen. There is a small amount of perisplenic fluid. The spleen, pancreas and adrenal glands are grossly normal in appearance. The gallbladder is surgically absent. The kidneys are normal in appearance without focal mass, calcification or signs of hydronephrosis. Evaluation of the gastrointestinal tract is limited without oral contrast. The small and large bowel are not distended. Consistent with the patient's reported surgical history, the appendix is not seen. There are innumerable rectosigmoid diverticula but none exhibit focal inflammatory change. There is trace peritoneal ascites and increased attenuation of the mesenteric fat which in combination with the perihepatic fluid and the liver disease is most consistent with portal venous vascular congestion. There is an umbilical hernia similar in appearance to the prior CT examination. The pelvic viscera is normal in appearance. The moderately calcified abdominal aorta and iliac arteries are normal in course and diameter. Degenerative changes include multilevel loss of intervertebral disc height involving the lower thoracic and lumbar spine.There are no sinister bone lesions. IMPRESSION: 1. Stable chronic findings described above are consistent with hepatic cirrhosis likely due to the patient's history of alcoholism. There is a small amount of perihepatic and perisplenic fluid as well as trace peritoneal ascites with increased attenuation of the mesenteric fat consistent with portal venous hypertension. 2. Additional chronic, degenerative and iatrogenic findings described in body the report.
[2018-02-18 15:56] LABS: EGFR Non-African American 77.1 (>60)
[2018-02-18 16:16] LABS: ABS Basophils 0 10^3/ul (0-0.2); ABS Eosinophils 0.1 10^3/ul (0-0.6); ABS Monocytes 0.6 10^3/ul (0-0.8); ABS Neutrophils 2.4 10^3/ul (1.5-7.7); ABS Nucleated RBC 0 10^3/ul; Eosinophil % 2.8 % (0-6); Lymphocyte % 24.2 % (25-47); Nucleated Red Blood Cells % 0.3
[2018-02-18] MEDS ORDERED: Al Hydrox/Mg Hydrox/Simet LIQ* 30 ML UDC PO PRN (19:03)
[2018-02-18] MEDS ORDERED: Ondansetron 40 MG VIAL* 2 MG/ML 20 ML VIAL IV PRN (19:03)
[2018-02-18] MEDS ORDERED: Albuterol 2.5 MG/3 ML NEB.SOL* (0.083%) INH PRN (19:03)
[2018-02-18] MEDS ORDERED: Gabapentin CAP(*) 300 MG PO PRN (19:09)
[2018-02-18] MEDS ORDERED: Acetaminophen TAB* 325 MG PO PRN (19:12)
[2018-02-18] MEDS: Docusate CAP* 100 MG PO SCH (19:39)
[2018-02-18] MEDS ORDERED: Diazepam TAB(*) 10 MG PO SCH (20:00)
[2018-02-18] MEDS: levETIRAcetam TAB* 500 MG PO SCH (20:01)
[2018-02-18] MEDS: RiFAXimin* 550 MG TAB PO SCH (20:01)
[2018-02-18] MEDS: NS 0.9% 1000 ML* 1,000 ML IV SCH (20:03)
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
--- NOTE | 2018-02-18 21:36 | ED ---
Jayla Garay Tenzin, scribed for Jake Nieves MD on 02/18/18 at 1446 . GI/ HPI - HPI Summary HPI Summary: Pt is a 62 y/o M with a history of alcoholic liver disease presenting to the ED requesting a detox treatment/Rehab admission for his drinking. He recently had a DUI. He denies any other complaints at this time. - History of Current Complaint Chief Complaint: EDDetoxRequest Time Seen by Provider: 02/18/18 13:44 Stated Complaint: DETOX-ALCOHOL Hx Obtained From: Patient Onset/Duration: Still Present Timing: Intermittent - Drinking problem with hx of bad liver Severity: Mild Current Severity: Mild Pain Intensity: 0 - Additional Pertinent History Primary Care Physician: CARO - Allergy/Home Medications Allergies/Adverse Reactions: Allergies Allergy/AdvReac Type Severity Reaction Status Date / Time lorazepam [From Ativan] Allergy See Comment Verified 02/18/18 11:11 sertraline Allergy Rash And Verified 02/18/18 11:11 Itching BEES Allergy Mild Hives Uncoded 02/18/18 11:11 PMH/Surg Hx/FS Hx/Imm Hx Endocrine/Hematology History: Reports: Hx Diabetes - elevated glucose after acute liver failure - diet controlled Denies: Hx Anticoagulant Therapy, Hx Thyroid Disease, Hx Anemia, Hx Unexplained Bleeding Cardiovascular History: Reports: Hx Hypercholesterolemia, Hx Hypertension Denies: Hx Aneurysm, Hx Angina, Hx Angioplasty, Hx Auto Implanted Cardiovert Defib, Hx Cardiac Arrest, Hx Cardiomegaly, Hx Congenital Heart Disease, Hx Congestive Heart Failure, Hx Coronary Artery Disease, Hx Deep Vein Thrombosis, Hx Embolism, Hx Hypotension, Hx Pacemaker/ICD, Hx Peripheral Vascular Disease, Hx Rheumatic Fever, Hx Syncope, Hx Valvular Heart Disease, Other Cardiovascular Problems/Disorders Respiratory History: Reports: Hx Asthma, Hx Chronic Bronchitis, Hx Seasonal Allergies - hay fever Denies: Hx Chronic Obstructive Pulmonary Disease (COPD), Hx Cystic Fibrosis, Hx Lung Cancer, Hx Pleural Effusion, Hx Pneumonia, Hx Pulmonary Edema, Hx Pulmonary Embolism, Hx Sleep Apnea, Other Respiratory Problems/Disorders GI History: Reports: Hx Cirrhosis, Hx Gall Bladder Disease, Hx Hiatal Hernia, Hx Ulcer Denies: Hx Crohn's Disease, Hx Diverticulosis, Hx Gastroesophageal Reflux Disease, Hx Gastrointestinal Bleed, Hx Irritable Bowel, Hx Jaundice, Hx Obstructive Bowel, Hx Ileostomy, Hx Pyloric Stenosis, Other GI Disorders History: Denies: Hx Dialysis, Hx Renal Disease Musculoskeletal History: Reports: Hx Arthritis - both knees, Hx Orthopedic Injury Denies: Hx Back Problems, Hx Bursitis, Hx Congenital Bone Abnormalities, Hx Fibromyalgia, Hx Gout, Hx Osteoporosis, Hx Scoliosis, Hx Tendonitis, Other Musculoskeletal History Sensory History: Reports: Hx Contacts or Glasses Denies: Hx Cataracts, Hx Eye Injury, Hx Eye Prosthesis, Hx Glaucoma, Hx Legally Blind, Hx Macular Degeneration, Hx Vision Problem, Hx Deafness, Hx Hearing Aid, Hx Hearing Problem, Other Sensory Impairments Opthamlomology History: Reports: Hx Contacts or Glasses Denies: Hx Cataracts, Hx Eye Injury, Hx Eye Prosthesis, Hx Glaucoma, Hx Legally Blind, Hx Macular Degeneration, Hx Vision Problem, Other Sensory Impairments Neurological History: Reports: Hx Headaches, Hx Seizures - 1 year ago, Other Neuro Impairments/Disorders - Subdural Hematoma Denies: Hx Dementia Psychiatric History: Reports: Hx Depression, Hx Substance Abuse - ETOH Denies: Hx Anxiety, Hx Attention Deficit Hyperactivity Disorder, Hx Eating Disorder, Hx Panic Disorder, Hx Post Traumatic Stress Disorder, Hx Inpatient Treatment, Hx Community Mental Health Tx, Hx Schizophrenia, Hx Bipolar Disorder , Hx Suicide Attempt, Hx of Violent Episodes Against Others, Other Psychiatric Issues/Disorders - Surgical History Surgery Procedure, Year, and Place: RIGHT ANKLE ORIF. LEFT KNEE TENDON REPAIR. CHOLECYSECTOMY. APPENDECTOMY. TONSILECTOMY Hx Anesthesia Reactions: No Infectious Disease History: No Infectious Disease History: Denies: Hx Clostridium Difficile, Hx Hepatitis, Hx Human Immunodeficiency Virus (HIV), Hx of Known/Suspected MRSA, Hx Shingles, Hx Tuberculosis, History Other Infectious Disease, Traveled Outside the [place] in Last 30 Days - Family History Known Family History: Negative: Cardiac Disease, Diabetes - Social History Alcohol Use: Daily Alcohol Amount: 2-3 beers per pt report Hx Substance Use: No Substance Use Type: Reports: None Hx Tobacco Use: Yes Smoking Status (MU): Former Smoker Type: Cigarettes Length of Time of Smoking/Using Tobacco: 5 years Have You Smoked in the Last Year: No Review of Systems Negative: Fever Negative: Epistaxis All Other Systems Reviewed And Are Negative: Yes Physical Exam - Summary Physical Exam Summary: General: well-appearing, no pain distress Skin: warm, color reflects adequate perfusion, dry Head: normal Eyes: EOMI, SHAUN ENT: normal Neck: supple, nontender Respiratory: CTA, breath sounds present Cardiovascular: RRR Abdomen: soft, nontender , Big umbilical hernia that is non tender to palpation and it is not reducible Bowel: normal Musculoskeletal: normal, strength/ROM intact Neurological: sensory/motor intact, A&O x3 Psychological: affect/mood appropriate Triage Information Reviewed: Yes Vital Signs On Initial Exam: Initial Vitals Temp Pulse Resp BP Pulse Ox 98 F 79 20 128/60 96 02/18/18 11:06 02/18/18 11:06 02/18/18 11:06 02/18/18 11:06 02/18/18 11:06 Vital Signs Reviewed: Yes Diagnostics - Vital Signs Vital Signs Temp Pulse Resp BP Pulse Ox 02/18/18 11:06 98 F 79 20 128/60 96 - Laboratory Lab Results: Lab Results 02/18/18 02/18/18 02/18/18 Range/Units 15:24 15:24 15:24 WBC (3.5-10.8) 10^3/ul RBC (4.0-5.4) 10^6/ul Hgb (14.0-18.0) g/dl Hct (42-52) % MCV (80-94) fL MCH (27-31) pg MCHC (31-36) g/dl RDW (10.5-15) % Plt Count (150-450) 10^3/ul MPV (7.4-10.4) um3 Neut % (Auto) (38-83) % Lymph % (Auto) (25-47) % [place] % (Auto) (0-7) % Eos % (Auto) (0-6) % Baso % (Auto) (0-2) % Absolute Neuts (auto) (1.5-7.7) 10^3/ul Absolute Lymphs (auto) (1.0-4.8) 10^3/ul Absolute Monos (auto) (0-0.8) 10^3/ul Absolute Eos (auto) (0-0.6) 10^3/ul Absolute Basos (auto) (0-0.2) 10^3/ul Absolute Nucleated RBC 10^3/ul Nucleated RBC % Anisocytosis Target Cells Elliptocytes INR (Anticoag Therapy) 1.52 H (0.77-1.02) APTT 35.8 (26.0-36.3) seconds Sodium 137 L (139-145) mmol/L Potassium 4.0 (3.5-5.0) mmol/L Chloride 100 L (101-111) mmol/L Carbon Dioxide 29 (22-32) mmol/L Anion Gap 8 (2-11) mmol/L BUN 7 (6-24) mg/dL Creatinine 0.99 (0.67-1.17) mg/dL Est GFR ( Amer) 99.2 (>60) Est GFR (Non-Af Amer) 77.1 (>60) BUN/Creatinine Ratio 7.1 L (8-20) Glucose 111 H (70-100) mg/dL Lactic Acid (0.5-2.0) mmol/L Calcium 8.3 L (8.6-10.3) mg/dL Magnesium 1.8 L (1.9-2.7) mg/dL Total Bilirubin 7.30 H (0.2-1.0) mg/dL AST 61 H (13-39) U/L ALT 18 (7-52) U/L Alkaline Phosphatase 159 H (34-104) U/L Ammonia 92 H (16-53) mcmol/L Total Creatine Kinase 245 H (10-223) U/L CK-MB (CK-2) 19.7 H (0.6-6.3) ng/mL C-Reactive Protein 9.80 H (< 5.00) mg/L B-Natriuretic Peptide 304 H ( - 100) pg/mL Total Protein 6.2 L (6.4-8.9) g/dL Albumin 2.4 L (3.2-5.2) g/dL Globulin 3.8 (2-4) g/dL Albumin/Globulin Ratio 0.6 L (1-3) Lipase 138 H (11.0-82.0) U/L TSH 3.20 (0.34-5.60) mcIU/mL Salicylates < 2.50 (<30) mg/dL Acetaminophen < 15 mcg/mL Serum Alcohol < 10 (<10) mg/dL 02/18/18 02/18/18 Range/Units 15:24 15:24 WBC 4.2 (3.5-10.8) 10^3/ul RBC 2.78 L (4.0-5.4) 10^6/ul Hgb 8.6 L (14.0-18.0) g/dl Hct 27 L (42-52) % MCV 95 H (80-94) fL MCH 31 (27-31) pg MCHC 33 (31-36) g/dl RDW 26 H (10.5-15) % Plt Count 85 L (150-450) 10^3/ul MPV 7.3 L (7.4-10.4) um3 Neut % (Auto) 58.1 (38-83) % Lymph % (Auto) 24.2 L (25-47) % [place] % (Auto) 14.0 H (0-7) % Eos % (Auto) 2.8 (0-6) % Baso % (Auto) 0.9 (0-2) % Absolute Neuts (auto) 2.4 (1.5-7.7) 10^3/ul Absolute Lymphs (auto) 1.0 (1.0-4.8) 10^3/ul Absolute Monos (auto) 0.6 (0-0.8) 10^3/ul Absolute Eos (auto) 0.1 (0-0.6) 10^3/ul Absolute Basos (auto) 0 (0-0.2) 10^3/ul Absolute Nucleated RBC 0 10^3/ul Nucleated RBC % 0.3 Anisocytosis 2+ Target Cells 1+ Elliptocytes 1+ INR (Anticoag Therapy) (0.77-1.02) APTT (26.0-36.3) seconds Sodium (139-145) mmol/L Potassium (3.5-5.0) mmol/L Chloride (101-111) mmol/L Carbon Dioxide (22-32) mmol/L Anion Gap (2-11) mmol/L BUN (6-24) mg/dL Creatinine (0.67-1.17) mg/dL Est GFR ( Amer) (>60) Est GFR (Non-Af Amer) (>60) BUN/Creatinine Ratio (8-20) Glucose (70-100) mg/dL Lactic Acid 3.6 H* (0.5-2.0) mmol/L Calcium (8.6-10.3) mg/dL Magnesium (1.9-2.7) mg/dL Total Bilirubin (0.2-1.0) mg/dL AST (13-39) U/L ALT (7-52) U/L Alkaline Phosphatase (34-104) U/L Ammonia (16-53) mcmol/L Total Creatine Kinase (10-223) U/L CK-MB (CK-2) (0.6-6.3) ng/mL C-Reactive Protein (< 5.00) mg/L B-Natriuretic Peptide ( - 100) pg/mL Total Protein (6.4-8.9) g/dL Albumin (3.2-5.2) g/dL Globulin (2-4) g/dL Albumin/Globulin Ratio (1-3) Lipase (11.0-82.0) U/L TSH (0.34-5.60) mcIU/mL Salicylates (<30) mg/dL Acetaminophen mcg/mL Serum Alcohol (<10) mg/dL Result Diagrams: 02/18/18 15:24 02/18/18 15:24 Lab Statement: Any lab studies that have been ordered have been reviewed, and results considered in the medical decision making process. - CT CT abd/Pelvis CT Interpretation: Positive (See Comments) CT Interpretation Completed By: Radiologist - Impression: Stable chronic findings described above are consistenet with hepatic cirrhosis likely due to pt 's history of alcoholism. There is a small amount of perihepatic and perisplenic fluid as well as trace peritoneal ascites with increased attenuation of the mesenteric fat consistent with portal venous hypertension. Additional chronic, degenerative and iatrogenic findings described in body the report. CT Abdomen/Pelvis interpreted by the radiologist. Dr Nieves reviewed the report. GIGU Course/Dx - Course Course Of Treatment: ADMIT HOSPITALIST. CRITICAL CARE TIME LESS THAN 30 MINUTES. - Diagnoses Provider Diagnoses: Hepatic encephalopathy Discharge - Sign-Out/Discharge Documenting (check all that apply): Discharge/Admit/Transfer - Discharge Plan Condition: Stable Disposition: ADMITTED TO [facility] - Billing Disposition and Condition Condition: STABLE [place] [facility] [place] The documentation as recorded by the Jayla segundo Tenzin accurately reflects the service I personally performed and the decisions made by , Jake iNeves MD.
[2018-02-19] MEDS: NS 0.9% 1000 ML* 1,000 ML IV SCH ×2 (06:31→17:26)
[2018-02-19 06:45] LABS: Hematocrit 24 % (42-52); Hemoglobin 7.8 g/dl (14.0-18.0); Mean Corpuscular HGB Conc 33 g/dl (31-36); Mean Corpuscular Hemoglobin 32 pg (27-31); Mean Corpuscular Volume 96 fL (80-94); Platelet Count 70 10^3/ul (150-450); Red Blood Count 2.45 10^6/ul (4.0-5.4); Red Cell Distribution Width 25 % (10.5-15); White Blood Count 3.3 10^3/ul (3.5-10.8)
[2018-02-19 07:02] LABS: EGFR Non-African American 90.7 (>60)
[2018-02-19 07:09] LABS: ABS Basophils 0 10^3/ul (0-0.2); ABS Eosinophils 0.1 10^3/ul (0-0.6); ABS Lymphocytes 1.1 10^3/ul (1.0-4.8); ABS Monocytes 0.4 10^3/ul (0-0.8); ABS Neutrophils 1.6 10^3/ul (1.5-7.7); ABS Nucleated RBC 0 10^3/ul; Eosinophil % 3.4 % (0-6); Lymphocyte % 34.9 % (25-47); Nucleated Red Blood Cells % 0.2
[2018-02-19] MEDS: Docusate CAP* 100 MG PO SCH ×2 (08:41→20:34)
[2018-02-19] MEDS: Multivitamins/Minerals TAB PO SCH (08:41)
[2018-02-19] MEDS: Spironolactone TAB* 25 MG PO SCH (08:41)
[2018-02-19] MEDS: Omeprazole CAP* 20 MG PO SCH (08:41)
[2018-02-19] MEDS: Thiamine TAB* 100 MG TAB PO SCH (08:41)
[2018-02-19] MEDS: Propranolol TAB* 10 MG PO SCH (08:41)
[2018-02-19] MEDS: levETIRAcetam TAB* 500 MG PO SCH ×2 (08:41→20:30)
[2018-02-19] MEDS: RiFAXimin* 550 MG TAB PO SCH ×2 (08:41→20:30)
[2018-02-19] MEDS: Furosemide TAB* 40 MG PO SCH (08:41)
[2018-02-19] MEDS: Citalopram TAB* 20 MG PO SCH (08:41)
[2018-02-19] MEDS: Cyanocobalamin TAB* 500 MCG PO SCH (08:42)
[2018-02-19] MEDS: Folic Acid TAB* 1 MG PO SCH (08:42)
[2018-02-19] MEDS ORDERED: Spironolactone TAB* 25 MG PO SCH (09:00)
--- NOTE | 2018-02-19 12:32 | PN ---
Subjective Date of Service: 02/19/18 Interval History: Mr. Mata has been doing well since admission yesterday. Reports feeling better, denies any pain, nausea, vomiting, headaches, tremors or changes in mentation. He is eating and moving his bowels. Reports 3 episodes of loose BMs today, but no BRBPR or abdominal cramps. Denies fever or chills. He was seen by social human services assistants and search is on for inpatient facility for ETOH rehab. Family History: Unchanged from Admission Social History: Unchanged from Admission Past Medical History: Unchanged from Admission Objective Active Medications: Acetaminophen (Tylenol Tab*) 650 mg PO Q4H PRN PRN Reason: PAIN Al Hydrox/Mg Hydrox/Simethicone (Maalox Plus*) 30 ml PO Q6H PRN PRN Reason: INDIGESTION Albuterol (Ventolin 2.5 Mg/3 Ml Neb.Debbie*) 2.5 mg INH RT.[id number] AWAKE PRN PRN Reason: sob/wheezing Citalopram Hydrobromide (Celexa Tab*) 20 mg PO DAILY [facility] Last Admin: 02/19/18 08:41 Dose: 20 mg Cyanocobalamin (Vitamin B12 Tab*) 500 mcg PO DAILY [facility] Last Admin: 02/19/18 08:42 Dose: 500 mcg Diazepam (Valium Tab(*)) 0 - 30 mg PO .[facility] PROTOCOL [facility] PRN Reason: Protocol Last Admin: 02/18/18 20:01 Dose: 10 mg Docusate Sodium (Colace Cap*) 100 mg PO BID [facility] Last Admin: 02/19/18 08:41 Dose: Not Given Folic Acid (Folvite Tab*) 1 mg PO DAILY [facility] Last Admin: 02/19/18 08:42 Dose: 1 mg Furosemide (Lasix Tab*) 40 mg PO DAILY [facility] Last Admin: 02/19/18 08:41 Dose: 40 mg Gabapentin (Neurontin Cap(*)) 300 mg PO BEDTIME PRN PRN Reason: PAIN Sodium Chloride (Ns 0.9% 1000 Ml*) 1,000 mls @ 100 mls/hr IV PER RATE [facility] Last Admin: 02/19/18 06:31 Dose: 100 mls/hr Lactulose (Lactulose*) 30 ml PO TID PRN PRN Reason: Ammonia Levels Levetiracetam (Keppra Tab*) 500 mg PO BID [facility] Last Admin: 02/19/18 08:41 Dose: 500 mg Multivitamins/Minerals (Theragran/Minerals Tab*) 1 tab PO DAILY [facility] Last Admin: 02/19/18 08:41 Dose: 1 tab Omeprazole (Prilosec Cap*) 20 mg PO DAILY@0730 [facility] Last Admin: 02/19/18 08:41 Dose: 20 mg Ondansetron HCl (Zofran 40 Mg Vial*) 4 mg IV Q4H PRN PRN Reason: NAUSEA/VOMITING Propranolol HCl (Inderal Tab*) 10 mg PO DAILY [facility] Last Admin: 02/19/18 08:41 Dose: 10 mg Rifaximin (Xifaxan*) 550 mg PO BID [facility] Last Admin: 02/19/18 08:41 Dose: 550 mg Spironolactone (Aldactone Tab*) 50 mg PO DAILY [facility] Last Admin: 02/19/18 08:41 Dose: 50 mg Thiamine HCl (Vitamin B-1 Tab*) 100 mg PO DAILY [facility] Last Admin: 02/19/18 08:41 Dose: 100 mg Vital Signs - 8 hr 02/19/18 02/19/18 02/19/18 06:40 07:13 07:40 Temperature 97.3 F 98.3 F Pulse Rate 72 68 Respiratory 19 18 18 Rate Blood Pressure 145/58 108/36 (mmHg) O2 Sat by Pulse 94 94 Oximetry Oxygen Devices in Use Now: None Appearance: Appears comfortable and in NAD Ears/Nose/Mouth/Throat: Clear Oropharnyx, Mucous Membranes Moist Neck: NL Appearance and Movements; NL JVP, Trachea Midline Respiratory: Symmetrical Chest Expansion and Respiratory Effort, Clear to Auscultation Cardiovascular: NL Sounds; No Murmurs; No JVD, RRR Abdominal: - - Abdomen soft, non-tender and mildly distended. Umbilical hernia unchanged in exam. No guarding, rigidity or rebound. Extremities: No Edema Skin: No Rash or Ulcers Neurological: Alert and Oriented x 3, NL Sensation, NL Muscle Strength and Tone Nutrition: Taking PO's Result Diagrams: 02/19/18 06:08 02/19/18 06:08 Additional Lab and Data: Lab Results 02/18/18 02/18/18 02/18/18 Range/Units 15:24 15:24 15:24 WBC (3.5-10.8) 10^3/ul RBC (4.0-5.4) 10^6/ul Hgb (14.0-18.0) g/dl Hct (42-52) % MCV (80-94) fL MCH (27-31) pg MCHC (31-36) g/dl RDW (10.5-15) % Plt Count (150-450) 10^3/ul MPV (7.4-10.4) um3 Neut % (Auto) (38-83) % Lymph % (Auto) (25-47) % [place] % (Auto) (0-7) % Eos % (Auto) (0-6) % Baso % (Auto) (0-2) % Absolute Neuts (auto) (1.5-7.7) 10^3/ul Absolute Lymphs (auto) (1.0-4.8) 10^3/ul Absolute Monos (auto) (0-0.8) 10^3/ul Absolute Eos (auto) (0-0.6) 10^3/ul Absolute Basos (auto) (0-0.2) 10^3/ul Absolute Nucleated RBC 10^3/ul Nucleated RBC % Anisocytosis Target Cells Elliptocytes INR (Anticoag Therapy) 1.52 H (0.77-1.02) APTT 35.8 (26.0-36.3) seconds Sodium 137 L (139-145) mmol/L Potassium 4.0 (3.5-5.0) mmol/L Chloride 100 L (101-111) mmol/L Carbon Dioxide 29 (22-32) mmol/L Anion Gap 8 (2-11) mmol/L BUN 7 (6-24) mg/dL Creatinine 0.99 (0.67-1.17) mg/dL Est GFR ( Amer) 99.2 (>60) Est GFR (Non-Af Amer) 77.1 (>60) BUN/Creatinine Ratio 7.1 L (8-20) Glucose 111 H (70-100) mg/dL Lactic Acid (0.5-2.0) mmol/L Calcium 8.3 L (8.6-10.3) mg/dL Magnesium 1.8 L (1.9-2.7) mg/dL Total Bilirubin 7.30 H (0.2-1.0) mg/dL AST 61 H (13-39) U/L ALT 18 (7-52) U/L Alkaline Phosphatase 159 H (34-104) U/L Ammonia 92 H (16-53) mcmol/L Total Creatine Kinase 245 H (10-223) U/L CK-MB (CK-2) 19.7 H (0.6-6.3) ng/mL C-Reactive Protein 9.80 H (< 5.00) mg/L B-Natriuretic Peptide 304 H ( - 100) pg/mL Total Protein 6.2 L (6.4-8.9) g/dL Albumin 2.4 L (3.2-5.2) g/dL Globulin 3.8 (2-4) g/dL Albumin/Globulin Ratio 0.6 L (1-3) Lipase 138 H (11.0-82.0) U/L TSH 3.20 (0.34-5.60) mcIU/mL Salicylates < 2.50 (<30) mg/dL Acetaminophen < 15 mcg/mL Serum Alcohol < 10 (<10) mg/dL 02/18/18 02/18/18 Range/Units 15:24 15:24 WBC 4.2 (3.5-10.8) 10^3/ul RBC 2.78 L (4.0-5.4) 10^6/ul Hgb 8.6 L (14.0-18.0) g/dl Hct 27 L (42-52) % MCV 95 H (80-94) fL MCH 31 (27-31) pg MCHC 33 (31-36) g/dl RDW 26 H (10.5-15) % Plt Count 85 L (150-450) 10^3/ul MPV 7.3 L (7.4-10.4) um3 Neut % (Auto) 58.1 (38-83) % Lymph % (Auto) 24.2 L (25-47) % [place] % (Auto) 14.0 H (0-7) % Eos % (Auto) 2.8 (0-6) % Baso % (Auto) 0.9 (0-2) % Absolute Neuts (auto) 2.4 (1.5-7.7) 10^3/ul Absolute Lymphs (auto) 1.0 (1.0-4.8) 10^3/ul Absolute Monos (auto) 0.6 (0-0.8) 10^3/ul Absolute Eos (auto) 0.1 (0-0.6) 10^3/ul Absolute Basos (auto) 0 (0-0.2) 10^3/ul Absolute Nucleated RBC 0 10^3/ul Nucleated RBC % 0.3 Anisocytosis 2+ Target Cells 1+ Elliptocytes 1+ INR (Anticoag Therapy) (0.77-1.02) APTT (26.0-36.3) seconds Sodium (139-145) mmol/L Potassium (3.5-5.0) mmol/L Chloride (101-111) mmol/L Carbon Dioxide (22-32) mmol/L Anion Gap (2-11) mmol/L BUN (6-24) mg/dL Creatinine (0.67-1.17) mg/dL Est GFR ( Amer) (>60) Est GFR (Non-Af Amer) (>60) BUN/Creatinine Ratio (8-20) Glucose (70-100) mg/dL Lactic Acid 3.6 H* (0.5-2.0) mmol/L Calcium (8.6-10.3) mg/dL Magnesium (1.9-2.7) mg/dL Total Bilirubin (0.2-1.0) mg/dL AST (13-39) U/L ALT (7-52) U/L Alkaline Phosphatase (34-104) U/L Ammonia (16-53) mcmol/L Total Creatine Kinase (10-223) U/L CK-MB (CK-2) (0.6-6.3) ng/mL C-Reactive Protein (< 5.00) mg/L B-Natriuretic Peptide ( - 100) pg/mL Total Protein (6.4-8.9) g/dL Albumin (3.2-5.2) g/dL Globulin (2-4) g/dL Albumin/Globulin Ratio (1-3) Lipase (11.0-82.0) U/L TSH (0.34-5.60) mcIU/mL Salicylates (<30) mg/dL Acetaminophen mcg/mL Serum Alcohol (<10) mg/dL Microbiology and Other Data: . Diagnostic Imaging: Patient Name: EFREN MATA Medical Record#: [id number] Ordering Physician: Jake Nieves MD Acct.#: [id number] : 1955 Age: 62 Sex: M Location: EMERGENCY DEPARTMENT Exam Date: 02/18/18 1432 ADM Status: REG ER Order Information: CT ABD/PEL W/O Accession Number: [id number] CPT: 28918 CLINICAL HISTORY: Abdominal swelling in a with a history of alcoholic liver disease. Relevant surgical history includes cholecystectomy and appendectomy. IMPRESSION: 1. Stable chronic findings described above are consistent with hepatic cirrhosis likely due to the patient's history of alcoholism. There is a small amount of perihepatic and perisplenic fluid as well as trace peritoneal ascites with increased attenuation of the mesenteric fat consistent with portal venous hypertension. 2. Additional chronic, degenerative and iatrogenic findings described in body the report. <Electronically signed by Ciro Bishop MD in OV> 02/18/18 4161 1 of 2 EKG Data: . Assess/Plan/Problems-Billing Assessment: A 62 y/o male with PMHx ETOH abuse, alcoholic liver cirrhosis, HTN and subdural hematoma, who presented to the ED requesting ETOH detox. - Patient Problems (1) Alcohol abuse Current Visit: No Status: Chronic Priority: High Code(s): F10.10 - ALCOHOL ABUSE, UNCOMPLICATED SNOMED Code(s): 33601742 Comment: No S/S of acute withdrawal at this point. Continue MVI, folate, and thiamine. Continue to monitor on WAM. Social serivces sonsulted, await inpatient facility referral (2) Alcoholic hepatitis with ascites Current Visit: No Status: Chronic Code(s): K70.11 - ALCOHOLIC HEPATITIS WITH ASCITES SNOMED Code(s): 008972882 Comment: Bilirubin is up from baseline but this might be due to hemoconcentration. Ammonia level acceptable and no sign of encephalopathy. CT reviewed, minimal ascites fluid, no paracentesis indicated at this time (3) Ascites Current Visit: No Status: Acute Priority: High Onset Date: 11/02/14 Code (s): R18.8 - OTHER ASCITES SNOMED Code(s): 171006241 Comment: - Stable, no intervention at this time (4) Cirrhosis Current Visit: No Status: Acute Comment: Seems to be compensated, no hepatic encephalopathy. (5) Elevated lactic acid level Current Visit: No Status: Acute Comment: - Resolved today with adequate hydration (6) DVT prophylaxis Current Visit: No Status: Acute Priority: Medium Onset Date: 11/02/14 Code(s): DGM0963 - SNOMED Code(s): 951394724 Comment: SCDs No subQ heparin due to risk for HIT (7) Full code status Current Visit: No Status: Acute (8) Thrombocytopenia Current Visit: Yes Status: Acute Comment: - Appears at baseline - No signs of bleeding tendency Status and Disposition: Inpatient. Anticipate discharge when medically stable and await referral to inpatient rehab facility.
[2018-02-20] MEDS: NS 0.9% 1000 ML* 1,000 ML IV SCH (03:33)
[2018-02-20] MEDS: RiFAXimin* 550 MG TAB PO SCH ×2 (08:07→20:28)
[2018-02-20] MEDS: Citalopram TAB* 20 MG PO SCH (08:07)
[2018-02-20] MEDS: Multivitamins/Minerals TAB PO SCH (08:07)
[2018-02-20] MEDS: Omeprazole CAP* 20 MG PO SCH (08:07)
[2018-02-20] MEDS: levETIRAcetam TAB* 500 MG PO SCH ×2 (08:08→20:28)
[2018-02-20] MEDS: Furosemide TAB* 40 MG PO SCH (08:08)
[2018-02-20] MEDS: Thiamine TAB* 100 MG TAB PO SCH (08:08)
[2018-02-20] MEDS: Cyanocobalamin TAB* 500 MCG PO SCH (08:08)
[2018-02-20] MEDS: Docusate CAP* 100 MG PO SCH ×2 (08:08→20:21)
[2018-02-20] MEDS: Propranolol TAB* 10 MG PO SCH (08:08)
[2018-02-20] MEDS: Spironolactone TAB* 25 MG PO SCH (08:08)
[2018-02-20] MEDS: Folic Acid TAB* 1 MG PO SCH (08:08)
--- NOTE | 2018-02-20 11:14 | PN ---
Subjective Date of Service: 02/20/18 Interval History: . Patient reports he feels a little better. He denies SOB/CP. No Orthopnea. No fevers or chills. Reports his abdomen feels "a little larger but not much". Feels unsteady on his feet but also states he has some gait instability at his baseline, he does report he feels close to his baseline and has been ambulating from bed to bathroom. Patient is interested in going to inpatient rehab. Sister and dad at bedside and are very supportive Family History: Unchanged from Admission Social History: Unchanged from Admission Past Medical History: Unchanged from Admission Objective Active Medications: Acetaminophen (Tylenol Tab*) 650 mg PO Q4H PRN PRN Reason: PAIN Al Hydrox/Mg Hydrox/Simethicone (Maalox Plus*) 30 ml PO Q6H PRN PRN Reason: INDIGESTION Albuterol (Ventolin 2.5 Mg/3 Ml Neb.Debbie*) 2.5 mg INH RT.[id number] AWAKE PRN PRN Reason: sob/wheezing Citalopram Hydrobromide (Celexa Tab*) 20 mg PO DAILY [facility] Last Admin: 02/20/18 08:07 Dose: 20 mg Cyanocobalamin (Vitamin B12 Tab*) 500 mcg PO DAILY [facility] Last Admin: 02/20/18 08:08 Dose: 500 mcg Diazepam (Valium Tab(*)) 0 - 30 mg PO .PER [facility] PROTOCOL AILYN PRN Reason: Protocol Last Admin: 02/18/18 20:01 Dose: 10 mg Docusate Sodium (Colace Cap*) 100 mg PO BID [facility] Last Admin: 02/20/18 08:08 Dose: Not Given Folic Acid (Folvite Tab*) 1 mg PO DAILY [facility] Last Admin: 02/20/18 08:08 Dose: 1 mg Furosemide (Lasix Tab*) 40 mg PO DAILY [facility] Last Admin: 02/20/18 08:08 Dose: 40 mg Gabapentin (Neurontin Cap(*)) 300 mg PO BEDTIME PRN PRN Reason: PAIN Sodium Chloride (Ns 0.9% 1000 Ml*) 1,000 mls @ 100 mls/hr IV PER RATE [facility] Last Admin: 02/20/18 03:33 Dose: 100 mls/hr Levetiracetam (Keppra Tab*) 500 mg PO BID [facility] Last Admin: 02/20/18 08:08 Dose: 500 mg Multivitamins/Minerals (Theragran/Minerals Tab*) 1 tab PO DAILY [facility] Last Admin: 02/20/18 08:07 Dose: 1 tab Omeprazole (Prilosec Cap*) 20 mg PO DAILY@0730 [facility] Last Admin: 02/20/18 08:07 Dose: 20 mg Ondansetron HCl (Zofran 40 Mg Vial*) 4 mg IV Q4H PRN PRN Reason: NAUSEA/VOMITING Propranolol HCl (Inderal Tab*) 10 mg PO DAILY [facility] Last Admin: 02/20/18 08:08 Dose: 10 mg Rifaximin (Xifaxan*) 550 mg PO BID [facility] Last Admin: 02/20/18 08:07 Dose: 550 mg Spironolactone (Aldactone Tab*) 50 mg PO DAILY [facility] Last Admin: 02/20/18 08:08 Dose: 50 mg Thiamine HCl (Vitamin B-1 Tab*) 100 mg PO DAILY [facility] Last Admin: 02/20/18 08:08 Dose: 100 mg Vital Signs - 8 hr 02/20/18 02/20/18 02/20/18 03:43 07:59 09:17 Temperature 98.3 F 98.2 F Pulse Rate 74 62 Respiratory 17 18 16 Rate Blood Pressure 107/70 127/61 (mmHg) O2 Sat by Pulse 95 97 Oximetry Oxygen Devices in Use Now: None Appearance: A+O x3 62 yo chronically ill male, slightly juandice. NAD Eyes: PERRLA Ears/Nose/Mouth/Throat: Mucous Membranes Moist Neck: NL Appearance and Movements; NL JVP Respiratory: Symmetrical Chest Expansion and Respiratory Effort, Clear to Auscultation Cardiovascular: NL Sounds; No Murmurs; No JVD, RRR, No Edema Abdominal: - - distended, soft, nontender Extremities: No Edema, No Clubbing, Cyanosis Skin: No Rash or Ulcers, No Nodules or Sclerosis Neurological: Alert and Oriented x 3, NL Sensation, NL Muscle Strength and Tone Lines/Tubes/Other Access: Clean, Dry and Intact Peripheral IV Nutrition: Taking PO's Result Diagrams: 02/19/18 06:08 02/19/18 06:08 Additional Lab and Data: Lab Results 02/18/18 02/18/18 02/18/18 Range/Units 15:24 15:24 15:24 WBC (3.5-10.8) 10^3/ul RBC (4.0-5.4) 10^6/ul Hgb (14.0-18.0) g/dl Hct (42-52) % MCV (80-94) fL MCH (27-31) pg MCHC (31-36) g/dl RDW (10.5-15) % Plt Count (150-450) 10^3/ul MPV (7.4-10.4) um3 Neut % (Auto) (38-83) % Lymph % (Auto) (25-47) % Kingfisher % (Auto) (0-7) % Eos % (Auto) (0-6) % Baso % (Auto) (0-2) % Absolute Neuts (auto) (1.5-7.7) 10^3/ul Absolute Lymphs (auto) (1.0-4.8) 10^3/ul Absolute Monos (auto) (0-0.8) 10^3/ul Absolute Eos (auto) (0-0.6) 10^3/ul Absolute Basos (auto) (0-0.2) 10^3/ul Absolute Nucleated RBC 10^3/ul Nucleated RBC % Anisocytosis Target Cells Elliptocytes INR (Anticoag Therapy) 1.52 H (0.77-1.02) APTT 35.8 (26.0-36.3) seconds Sodium 137 L (139-145) mmol/L Potassium 4.0 (3.5-5.0) mmol/L Chloride 100 L (101-111) mmol/L Carbon Dioxide 29 (22-32) mmol/L Anion Gap 8 (2-11) mmol/L BUN 7 (6-24) mg/dL Creatinine 0.99 (0.67-1.17) mg/dL Est GFR ( Amer) 99.2 (>60) Est GFR (Non-Af Amer) 77.1 (>60) BUN/Creatinine Ratio 7.1 L (8-20) Glucose 111 H (70-100) mg/dL Lactic Acid (0.5-2.0) mmol/L Calcium 8.3 L (8.6-10.3) mg/dL Magnesium 1.8 L (1.9-2.7) mg/dL Total Bilirubin 7.30 H (0.2-1.0) mg/dL AST 61 H (13-39) U/L ALT 18 (7-52) U/L Alkaline Phosphatase 159 H (34-104) U/L Ammonia 92 H (16-53) mcmol/L Total Creatine Kinase 245 H (10-223) U/L CK-MB (CK-2) 19.7 H (0.6-6.3) ng/mL C-Reactive Protein 9.80 H (< 5.00) mg/L B-Natriuretic Peptide 304 H ( - 100) pg/mL Total Protein 6.2 L (6.4-8.9) g/dL Albumin 2.4 L (3.2-5.2) g/dL Globulin 3.8 (2-4) g/dL Albumin/Globulin Ratio 0.6 L (1-3) Lipase 138 H (11.0-82.0) U/L TSH 3.20 (0.34-5.60) mcIU/mL Salicylates < 2.50 (<30) mg/dL Acetaminophen < 15 mcg/mL Serum Alcohol < 10 (<10) mg/dL 02/18/18 02/18/18 Range/Units 15:24 15:24 WBC 4.2 (3.5-10.8) 10^3/ul RBC 2.78 L (4.0-5.4) 10^6/ul Hgb 8.6 L (14.0-18.0) g/dl Hct 27 L (42-52) % MCV 95 H (80-94) fL MCH 31 (27-31) pg MCHC 33 (31-36) g/dl RDW 26 H (10.5-15) % Plt Count 85 L (150-450) 10^3/ul MPV 7.3 L (7.4-10.4) um3 Neut % (Auto) 58.1 (38-83) % Lymph % (Auto) 24.2 L (25-47) % Kingfisher % (Auto) 14.0 H (0-7) % Eos % (Auto) 2.8 (0-6) % Baso % (Auto) 0.9 (0-2) % Absolute Neuts (auto) 2.4 (1.5-7.7) 10^3/ul Absolute Lymphs (auto) 1.0 (1.0-4.8) 10^3/ul Absolute Monos (auto) 0.6 (0-0.8) 10^3/ul Absolute Eos (auto) 0.1 (0-0.6) 10^3/ul Absolute Basos (auto) 0 (0-0.2) 10^3/ul Absolute Nucleated RBC 0 10^3/ul Nucleated RBC % 0.3 Anisocytosis 2+ Target Cells 1+ Elliptocytes 1+ INR (Anticoag Therapy) (0.77-1.02) APTT (26.0-36.3) seconds Sodium (139-145) mmol/L Potassium (3.5-5.0) mmol/L Chloride (101-111) mmol/L Carbon Dioxide (22-32) mmol/L Anion Gap (2-11) mmol/L BUN (6-24) mg/dL Creatinine (0.67-1.17) mg/dL Est GFR ( Amer) (>60) Est GFR (Non-Af Amer) (>60) BUN/Creatinine Ratio (8-20) Glucose (70-100) mg/dL Lactic Acid 3.6 H* (0.5-2.0) mmol/L Calcium (8.6-10.3) mg/dL Magnesium (1.9-2.7) mg/dL Total Bilirubin (0.2-1.0) mg/dL AST (13-39) U/L ALT (7-52) U/L Alkaline Phosphatase (34-104) U/L Ammonia (16-53) mcmol/L Total Creatine Kinase (10-223) U/L CK-MB (CK-2) (0.6-6.3) ng/mL C-Reactive Protein (< 5.00) mg/L B-Natriuretic Peptide ( - 100) pg/mL Total Protein (6.4-8.9) g/dL Albumin (3.2-5.2) g/dL Globulin (2-4) g/dL Albumin/Globulin Ratio (1-3) Lipase (11.0-82.0) U/L TSH (0.34-5.60) mcIU/mL Salicylates (<30) mg/dL Acetaminophen mcg/mL Serum Alcohol (<10) mg/dL Microbiology and Other Data: . Diagnostic Imaging: Patient Name: EFREN KUMAR Medical Record#: [id number] Ordering Physician: Jake Nieves MD Acct.#: [id number] : 1955 Age: 62 Sex: M Location: EMERGENCY DEPARTMENT Exam Date: 02/18/18 1432 ADM Status: REG ER Order Information: CT ABD/PEL W/O Accession Number: [id number] CPT: 45793 CLINICAL HISTORY: Abdominal swelling in a with a history of alcoholic liver disease. Relevant surgical history includes cholecystectomy and appendectomy. IMPRESSION: 1. Stable chronic findings described above are consistent with hepatic cirrhosis likely due to the patient's history of alcoholism. There is a small amount of perihepatic and perisplenic fluid as well as trace peritoneal ascites with increased attenuation of the mesenteric fat consistent with portal venous hypertension. 2. Additional chronic, degenerative and iatrogenic findings described in body the report. <Electronically signed by Ciro Bishop MD in [facility]> 02/18/18 4099 1 of 2 EKG Data: . Assess/Plan/Problems-Billing Assessment: A 62 y/o male with PMHx ETOH abuse, alcoholic liver cirrhosis, HTN and hx of subdural hematoma, who presented to the ED requesting ETOH detox. - Patient Problems (1) Alcohol abuse Current Visit: Yes Comment: No S/S of acute withdrawal at this point. Continue MVI, folate, and thiamine. Continue to monitor on WAM. Social serivces sonsulted, await inpatient facility referral (2) Cirrhosis Comment: Seems to be compensated, no hepatic encephalopathy. Reports a little more ascites than normal but admits to not taking his medications regularly. He has more jaundice than normal per sister. Total Bili 7 on admission, now trending down. LFTs trending down. Recheck in am. Stop IVFs, No need for paracentesis at this point. Continue lasix, rifaximin, aldactone Daily weights (3) Thrombocytopenia Comment: - Appears at baseline - No signs of bleeding tendency (4) Anemia Comment: - chronic. hx of GI bleed, and hx of hemoperitoneum in the past. No obvious signs of bleeding. - Check Iron Studies - Stool for occult blood (5) Elevated lactic acid level Comment: - Resolved today with adequate hydration (6) Full code status (7) DVT prophylaxis Comment: SCDs Status and Disposition: Inpatient. Anticipate discharge when medically stable and await referral to inpatient rehab facility.
[2018-02-21 06:14] LABS: ABS Basophils 0 10^3/ul (0-0.2); ABS Eosinophils 0.1 10^3/ul (0-0.6); ABS Lymphocytes 1.1 10^3/ul (1.0-4.8); ABS Monocytes 0.4 10^3/ul (0-0.8); ABS Neutrophils 2.2 10^3/ul (1.5-7.7); ABS Nucleated RBC 0 10^3/ul; Eosinophil % 3.7 % (0-6); Hematocrit 24 % (42-52); Hemoglobin 7.8 g/dl (14.0-18.0); Lymphocyte % 27.2 % (25-47); Mean Corpuscular HGB Conc 32 g/dl (31-36); Mean Corpuscular Hemoglobin 32 pg (27-31); Mean Corpuscular Volume 99 fL (80-94); Mean Platelet Volume 7.5 um3 (7.4-10.4); Nucleated Red Blood Cells % 0.2; Platelet Count 73 10^3/ul (150-450); Red Blood Count 2.46 10^6/ul (4.0-5.4); Red Cell Distribution Width 27 % (10.5-15); White Blood Count 3.9 10^3/ul (3.5-10.8)
[2018-02-21 06:26] LABS: EGFR Non-African American 113.2 (>60)
[2018-02-21] MEDS: Citalopram TAB* 20 MG PO SCH (08:09)
[2018-02-21] MEDS: Thiamine TAB* 100 MG TAB PO SCH (08:09)
[2018-02-21] MEDS: Furosemide TAB* 40 MG PO SCH (08:09)
[2018-02-21] MEDS: Multivitamins/Minerals TAB PO SCH (08:09)
[2018-02-21] MEDS: Docusate CAP* 100 MG PO SCH (08:09)
[2018-02-21] MEDS: Omeprazole CAP* 20 MG PO SCH (08:09)
[2018-02-21] MEDS: Propranolol TAB* 10 MG PO SCH (08:09)
[2018-02-21] MEDS: Spironolactone TAB* 25 MG PO SCH (08:09)
[2018-02-21] MEDS: levETIRAcetam TAB* 500 MG PO SCH (08:09)
[2018-02-21] MEDS: Cyanocobalamin TAB* 500 MCG PO SCH (08:09)
[2018-02-21] MEDS: RiFAXimin* 550 MG TAB PO SCH (08:09)
[2018-02-21] MEDS: Folic Acid TAB* 1 MG PO SCH (08:09)
[2018-02-21 09:20] VITALS: BP 129/61
[2018-02-21] MEDS ORDERED: Magnesium Chloride EC TAB* 64 MG PO SCH (10:00)
--- NOTE | 2018-02-21 13:24 | DS ---
AMENDED REPORT NOW INCLUDES COSIGNER DESIGNATION - ESIGNED BEFORE ADJUSTMENT CC: Dr. Diann Liu; Dr. Rosie Noriega.* DISCHARGE SUMMARY: DATE OF ADMISSION: 02/18/18. DATE OF DISCHARGE: 02/21/18. ATTENDING FOR THIS ADMISSION: Dr. Uriah Cantu.* (DICTATED BY EDGARDO CHÁVEZ NP) PRIMARY CARE PHYSICIAN: Dr. Rosie Noriega. MY ATTENDING FOR TODAY: Dr. Diann Liu. HOSPITAL COURSE: This is a 62-year-old gentleman who presented to the emergency department on the 02/18/18 with complaints of weakness and alcohol abuse. The patient states that he had been refraining from alcohol abuse for several months and was doing well and then subsequently started drinking again over the past couple of weeks and again presented to the emergency department with generalized weakness and some gait instability and he was requesting rehabilitation and detoxification. Significant to note, the patient has a history of hepatic cirrhosis. He is on lactulose. He does have some ascites, chronic bilirubinemia, anemia, electrolyte disturbances, and coagulopathy. The patient does have a family support in the form of his sister and his father, who stated that they would be helping to care for the patient at discharge as the patient is still interested in rehab. The patient continued on his home medications and his lactulose. He did not exhibit any hepatic encephalopathy during this admission, but again did have some physical weakness and some shakiness through the course of his hospital stay. The patient was ready for discharge today, the . His vital signs have been stable for the last 48 hours and some of the lab values have come back into normal range with support of multivitamins, thiamine, and electrolyte replacement. PHYSICAL EXAMINATION: On day of discharge, vital signs are blood pressure 129/ 61, heart rate 67, temperature 98.1, respiratory rate 16, saturation on room air is 97%. HEENT: The patient is atraumatic, normocephalic. PERRLA with nonicteric sclerae. Neck is supple and nontender. No JVD noted. No thyromegaly appreciated. Cardiovascular: S1, S2 present. No murmurs, gallops, or rubs. No edema. Lungs are clear bilaterally to auscultation with no adventitious breath sounds. Abdomen is soft, nontender, moderately distended secondary to his ascites. Musculoskeletal: There is no clubbing, no cyanosis, no edema. He has +2 distal pulses palpable. Skin: He has no rashes or ulcers. Neurologic: He is grossly intact with no focal deficits. Psychiatric : He is cooperative and appropriate. LABORATORY DATA: Today, WBC 3.9, RBC 2.46, hemoglobin 7.8, hematocrit 24, platelets 73. Sodium 136, potassium 3.8, chloride 108, CO2 23, BUN 3, creatinine 0.71, GFR 113.2, calcium 8.0, magnesium 1.5, iron 30, TIBC 273. Transferrin 195. Ferritin 21.1. Total bilirubin 5.3, trending down from 7.3 at admission. AST 54, down from 61, ALT 17, alk phos 169, total creatinine kinase 245. CK-MB 19.7, CRP 9.80. BNP 304. Total protein 5.5, albumin 2.1. Lipase 138 and folate is greater than 20, TSH 3.20. IMAGING: CAT scan of the abdomen and pelvis shows stable chronic findings consistent with hepatitic cirrhosis likely due to the patient's history of alcoholism. There is a small amount of perihepatic and perisplenic fluid areas as well as trace peritoneal ascites with increased attenuation of the mesenteric fat consistent with protal venous hypertension. Additional chronic degenerative and iatrogenic changes as described in the body of the report. DISCHARGE DIAGNOSES: 1. Alcohol abuse. 2. History of cirrhosis with compensation, exhibiting no signs of hepatic encephalopathy, primarily stable. 3. Thrombocytopenia with no signs of active bleeding. 4. Chronic anemia, secondary to the above. 5. Elevated lactic acidosis, which has resolved with hydration. 6. Coagulopathy secondary to his cirrhotic liver disease. DISCHARGE MEDICATIONS: Include: 1. Keppra 500 mg 2 times a day. 2. Thiamine 100 mg p.o. daily. 3. Spironolactone 50 mg daily. 4. Xifaxan 550 mg 2 times a day. 5. Propranolol 10 mg daily. 6. Omeprazole 20 mg daily. 7. Multivitamin 1 tablet daily. 8. Lactulose 30 mL 3 times a day as needed. 9. Gabapentin 300 mg p.o. at bedtime. 10. Lasix 40 mg daily. 11. Folic acid 1 mg daily. 12. Lexapro 10 mg daily. 13. Vitamin B12 at 500 mcg p.o. daily. 14. Albuterol 2 puffs inhaled q. 4 hours as needed. 15. Slow Mag 64 mg p.o. daily. DISPOSITION PLANNING: The patient was interested in rehabilitation. He will be discharged to home in the care of his sister. He has an intake prepared at [facility]. His intake is planned for 12:30 today. This was confirmed [place] at this facility by our case consultant here. The patient will be discharged in the care of his family that will transport him this afternoon for intake at [facility]. The patient was discharged in stable condition. All questions were answered. The patient states his understanding of his followups and his discharge medications. The patient should follow up with Dr. Noriega, his primary care and his GI doctor for followup with hepatology regarding his cirrhosis. The patient does not have an enough ascites to be tapped at this point, but this is something that should be monitored closely in an outpatient environment. EDGARDO CHÁVEZ NP [id number]/[facility] #: [id number] MARILUZ
== END 2018-02-21 10:35 | DRG 775 ==
LOC: ED 10:52 → MED 17:45
PROVIDERS: ADMIT Internal Medicine; ATTEND Internal Medicine
PROC: HZ2ZZZZ Detoxification Services for Substance Abuse Treatment (ICD-10-PCS; principal; 2018-02-18)
DX: F10.20 Alcohol dependence, uncomplicated (principal); K76.6 Portal hypertension; D68.4 Acquired coagulation factor deficiency; E11.9 Type 2 diabetes mellitus without complications; E78.00 Pure hypercholesterolemia, unspecified; I10 Essential (primary) hypertension; J45.909 Unspecified asthma, uncomplicated; J42 Unspecified chronic bronchitis; M17.0 Bilateral primary osteoarthritis of knee; F32.9 Major depressive disorder, single episode, unspecified; K70.31 Alcoholic cirrhosis of liver with ascites; Y90.9 Presence of alcohol in blood, level not specified; E66.9 Obesity, unspecified; R56.9 Unspecified convulsions; D69.6 Thrombocytopenia, unspecified; R74.0 Nonspecific elevation of levels of transaminase and lactic acid dehydrogenase [LDH]; K70.11 Alcoholic hepatitis with ascites; D64.9 Anemia, unspecified; Z86.73 Personal history of transient ischemic attack (TIA), and cerebral infarction without residual deficits; Z90.49 Acquired absence of other specified parts of digestive tract; Z90.89 Acquired absence of other organs; Z87.891 Personal history of nicotine dependence; Z88.8 Allergy status to other drugs, medicaments and biological substances; Z91.030 Bee allergy status; Z91.018 Allergy to other foods; Z82.3 Family history of stroke; Z68.32 Body mass index [BMI] 32.0-32.9, adult
CPT/HCPCS: 36415; 74176; 80048; 80053; 80320; 80329; 82140; 82550; 82553; 82728; 82746; 83540; 83550; 83605; 83690; 83735; 83880; 84443; 85025; 85610; 85730; 86140; 93005; 99284; A9270-GY; G0480; J2405; J3411

== ENCOUNTER 2018-03-08 16:31 | Inpatient (IN) | payer BC ==
[2018-03-08 19:59] LABS: INR 1.43 (0.77-1.02)
[2018-03-08 20:01] LABS: ABS Basophils 0 10^3/ul (0-0.2); ABS Eosinophils 0.2 10^3/ul (0-0.6); ABS Lymphocytes 1.3 10^3/ul (1.0-4.8); ABS Monocytes 0.5 10^3/ul (0-0.8); ABS Neutrophils 2.3 10^3/ul (1.5-7.7); ABS Nucleated RBC 0 10^3/ul; Eosinophil % 5.5 % (0-6); Hematocrit 27 % (42-52); Hemoglobin 8.5 g/dl (14.0-18.0); Lymphocyte % 29.1 % (25-47); Mean Corpuscular HGB Conc 32 g/dl (31-36); Mean Corpuscular Hemoglobin 30 pg (27-31); Mean Corpuscular Volume 96 fL (80-94); Mean Platelet Volume 7.6 um3 (7.4-10.4); Nucleated Red Blood Cells % 0.1; Platelet Count 110 10^3/ul (150-450); Red Blood Count 2.79 10^6/ul (4.0-5.4); Red Cell Distribution Width 24 % (10.5-15); White Blood Count 4.5 10^3/ul (3.5-10.8)
[2018-03-08 20:11] LABS: EGFR Non-African American 97.2 (>60)
--- NOTE | 2018-03-08 20:47 | ED ---
Nehemias Garay Rebecca, scribed for Ino Sands MD on 03/08/18 at 1916 . Complex/Multi-Sys Presentation - HPI Summary HPI Summary: Pt is a 62 y/o M who who presents to ED c/o a navel hernia leaking. Pt reports this has been going on for multiple months, worsening recently. States the drainage is a clear fluid and that he has been dressing it, but the dressing today "didn't last long." No associated pain. Denies N/V, fever and decreased appetite. He has been admitted to [facility] rehab for the past 8 days and they referred him [place] [facility] [place] for current symptoms. Has seen a surgeon about this and has had paracentesis done multiple times, though has not had surgery and his father states he likely won't due to liver failure. Last drained in June,. - History Of Current Complaint Chief Complaint: EDGeneral Hx Obtained From: Patient Onset/Duration: Lasting Weeks - Multiple months, Still Present Severity Currently: None Location: Negative Aggravating Factor(s): Nothing Alleviating Factor(s): Nothing Associated Signs And Symptoms: Positive: Other - Hernia draining. Negative: Nausea, Vomiting, Fever - Allergies/Home Medications Allergies/Adverse Reactions: Allergies Allergy/AdvReac Type Severity Reaction Status Date / Time lorazepam [From Ativan] Allergy See Comment Verified 03/08/18 16:44 sertraline Allergy Rash And Verified 03/08/18 16:44 Itching BEES Allergy Mild Hives Uncoded 03/08/18 16:44 Home Medications: Home Medications Albuterol HFA INHALER* [Ventolin HFA Inhaler*] 2 puff INH Q4H PRN 03/08/18 [ History Confirmed 03/08/18] Cyanocobalamin TAB* [Vitamin B12 TAB*] 1,000 mcg PO DAILY 03/08/18 [History Confirmed 03/08/18] EPINEPHrine SYR* [EPINEPHphrine SYR*] 0.1 mg IM ONCE PRN 03/08/18 [History Confirmed 03/08/18] Escitalopram (NF) [Lexapro 10 mg (NF)] 10 mg PO DAILY 03/08/18 [History Confirmed 03/08/18] Folic Acid TAB* [Folvite TAB*] 1 mg PO DAILY 03/08/18 [History Confirmed ] Furosemide TAB* [Lasix TAB*] 40 mg PO DAILY 03/08/18 [History Confirmed 03/08/18 ] Gabapentin CAP(*) [Neurontin 300 CAP(*)] 300 mg PO TID PRN 03/08/18 [History Confirmed 03/08/18] Magnesium Oxide [Magnesium] 500 mg PO DAILY 03/08/18 [History Confirmed 03/08/18 ] Omeprazole CAP* [Prilosec CAP* 20 MG] 20 mg PO DAILY 03/08/18 [History Confirmed 03/08/18] Propranolol TAB* [Inderal TAB*] 10 mg PO DAILY 03/08/18 [History Confirmed 03/08] RiFAXimin* [Xifaxan*] 550 mg PO BID 03/08/18 [History Confirmed 03/08/18] Spironolactone TAB* [Aldactone TAB*] 25 mg PO QAM 03/08/18 [History Confirmed ] Triamcinolone NASAL SPRAY* [Nasacort AQ Nasal [place]*] 1 puff BOTH NARES DAILY [History Confirmed 03/08/18] Vitamin B1 100 mg PO DAILY 03/08/18 [History Confirmed 03/08/18] hydrOXYzine HCL TAB* [Atarax 25 MG TAB*] 25 mg PO BID PRN 03/08/18 [History Confirmed 03/08/18] levETIRAcetam TAB* [Keppra TAB*] 500 mg PO BID 03/08/18 [History Confirmed 03/08] PMH/Surg Hx/FS Hx/Imm Hx Endocrine/Hematology History: Reports: Hx Diabetes - elevated glucose after acute liver failure - diet controlled Denies: Hx Anticoagulant Therapy, Hx Thyroid Disease, Hx Anemia, Hx Unexplained Bleeding Cardiovascular History: Reports: Hx Hypercholesterolemia, Hx Hypertension Denies: Hx Aneurysm, Hx Angina, Hx Angioplasty, Hx Auto Implanted Cardiovert Defib, Hx Cardiac Arrest, Hx Cardiomegaly, Hx Congenital Heart Disease, Hx Congestive Heart Failure, Hx Coronary Artery Disease, Hx Deep Vein Thrombosis, Hx Embolism, Hx Hypotension, Hx Pacemaker/ICD, Hx Peripheral Vascular Disease, Hx Rheumatic Fever, Hx Syncope, Hx Valvular Heart Disease, Other Cardiovascular Problems/Disorders Respiratory History: Reports: Hx Asthma, Hx Chronic Bronchitis, Hx Seasonal Allergies - hay fever Denies: Hx Chronic Obstructive Pulmonary Disease (COPD), Hx Cystic Fibrosis, Hx Lung Cancer, Hx Pleural Effusion, Hx Pneumonia, Hx Pulmonary Edema, Hx Pulmonary Embolism, Hx Sleep Apnea, Other Respiratory Problems/Disorders GI History: Reports: Hx Cirrhosis, Hx Gall Bladder Disease, Hx Hiatal Hernia, Hx Ulcer Denies: Hx Crohn's Disease, Hx Diverticulosis, Hx Gastroesophageal Reflux Disease, Hx Gastrointestinal Bleed, Hx Irritable Bowel, Hx Jaundice, Hx Obstructive Bowel, Hx Ileostomy, Hx Pyloric Stenosis, Other GI Disorders History: Denies: Hx Dialysis, Hx Renal Disease Musculoskeletal History: Reports: Hx Arthritis - both knees, Hx Orthopedic Injury Denies: Hx Back Problems, Hx Bursitis, Hx Congenital Bone Abnormalities, Hx Fibromyalgia, Hx Gout, Hx Osteoporosis, Hx Scoliosis, Hx Tendonitis, Other Musculoskeletal History Sensory History: Reports: Hx Contacts or Glasses Denies: Hx Cataracts, Hx Eye Injury, Hx Eye Prosthesis, Hx Glaucoma, Hx Legally Blind, Hx Macular Degeneration, Hx Vision Problem, Hx Deafness, Hx Hearing Aid, Hx Hearing Problem, Other Sensory Impairments Opthamlomology History: Reports: Hx Contacts or Glasses Denies: Hx Cataracts, Hx Eye Injury, Hx Eye Prosthesis, Hx Glaucoma, Hx Legally Blind, Hx Macular Degeneration, Hx Vision Problem, Other Sensory Impairments Neurological History: Reports: Hx Headaches, Hx Seizures - 1 year ago, Other Neuro Impairments/Disorders - Subdural Hematoma Denies: Hx Dementia Psychiatric History: Reports: Hx Depression, Hx Substance Abuse - ETOH Denies: Hx Anxiety, Hx Attention Deficit Hyperactivity Disorder, Hx Eating Disorder, Hx Panic Disorder, Hx Post Traumatic Stress Disorder, Hx Inpatient Treatment, Hx Community Mental Health Tx, Hx Schizophrenia, Hx Bipolar Disorder , Hx Suicide Attempt, Hx of Violent Episodes Against Others, Other Psychiatric Issues/Disorders - Surgical History Surgery Procedure, Year, and Place: RIGHT ANKLE ORIF. LEFT KNEE TENDON REPAIR. CHOLECYSECTOMY. APPENDECTOMY. TONSILECTOMY Hx Anesthesia Reactions: No Infectious Disease History: No Infectious Disease History: Denies: Hx Clostridium Difficile, Hx Hepatitis, Hx Human Immunodeficiency Virus (HIV), Hx of Known/Suspected MRSA, Hx Shingles, Hx Tuberculosis, History Other Infectious Disease, Traveled Outside the [place] in Last 30 Days - Family History Known Family History: Negative: Cardiac Disease, Diabetes - Social History Alcohol Use: Occasionally Alcohol Amount: 1-2 drinks per pt Hx Substance Use: No Substance Use Type: Reports: None Substance Use Comment - Amount & Last Used: 02/17/18 Hx Tobacco Use: Yes Smoking Status (MU): Former Smoker Type: Cigarettes Length of Time of Smoking/Using Tobacco: 5 years Have You Smoked in the Last Year: No Review of Systems Negative: Fever Positive: Other - Hernia drainage; NEGATIVE: Decreased appetite. Negative: Vomiting, Nausea All Other Systems Reviewed And Are Negative: Yes Physical Exam - Summary Physical Exam Summary: Appearance: Well-appearing, Well-nourished, lying in bed comfortably Skin: Warm, dry, no obvious rash Eyes: sclera anicteric, no conjunctival pallor ENT: mucous membranes moist, pharynx appears normal Neck: Supple, nontender Respiratory: Clear to auscultation, no signs of respiratory distress Cardiovascular: Normal S1, S2. No murmurs. Normal distal pulses in tibial and radial bilaterally. Abdomen: Protuberant with ascites, but not tense. Big periumbilical hernia with a small superficial skin ulcer that is clean and dry with no drainage at this time, normal active bowel sounds present Musculoskeletal: Normal, Strength/ROM Intact Neurological: A&Ox3, awake and alert, mentation is normal, speech is fluent and appropriate Psychiatric: affect is normal, does not appear anxious or depressed Triage Information Reviewed: Yes Vital Signs On Initial Exam: Initial Vitals Temp Pulse Resp BP Pulse Ox 98.2 F 64 20 123/52 99 03/08/18 16:35 03/08/18 16:35 03/08/18 16:35 03/08/18 16:35 03/08/18 16:35 Vital Signs Reviewed: Yes Diagnostics - Vital Signs Vital Signs Temp Pulse Resp BP Pulse Ox 03/08/18 18:26 62 98 03/08/18 18:25 64 125/64 99 03/08/18 16:35 98.2 F 64 20 123/52 99 - Laboratory Lab Results: Lab Results 03/08/18 03/08/18 03/08/18 Range/Units 19:50 19:50 19:50 WBC 4.5 (3.5-10.8) 10^3/ul RBC 2.79 L (4.0-5.4) 10^6/ul Hgb 8.5 L (14.0-18.0) g/dl Hct 27 L (42-52) % MCV 96 H (80-94) fL MCH 30 (27-31) pg MCHC 32 (31-36) g/dl RDW 24 H (10.5-15) % Plt Count 110 L (150-450) 10^3/ul MPV 7.6 (7.4-10.4) um3 Neut % (Auto) 52.8 (38-83) % Lymph % (Auto) 29.1 (25-47) % Grayson % (Auto) 11.8 H (0-7) % Eos % (Auto) 5.5 (0-6) % Baso % (Auto) 0.8 (0-2) % Absolute Neuts (auto) 2.3 (1.5-7.7) 10^3/ul Absolute Lymphs (auto) 1.3 (1.0-4.8) 10^3/ul Absolute Monos (auto) 0.5 (0-0.8) 10^3/ul Absolute Eos (auto) 0.2 (0-0.6) 10^3/ul Absolute Basos (auto) 0 (0-0.2) 10^3/ul Absolute Nucleated RBC 0 10^3/ul Nucleated RBC % 0.1 INR (Anticoag Therapy) (0.77-1.02) Sodium 138 L (139-145) mmol/L Potassium 4.2 (3.5-5.0) mmol/L Chloride 106 (101-111) mmol/L Carbon Dioxide 27 (22-32) mmol/L Anion Gap 5 (2-11) mmol/L BUN 8 (6-24) mg/dL Creatinine 0.81 (0.67-1.17) mg/dL Est GFR ( Amer) 125.0 (>60) Est GFR (Non-Af Amer) 97.2 (>60) BUN/Creatinine Ratio 9.9 (8-20) Glucose 103 H (70-100) mg/dL Calcium 8.6 (8.6-10.3) mg/dL Total Bilirubin 2.90 H (0.2-1.0) mg/dL AST 43 H (13-39) U/L ALT 19 (7-52) U/L Alkaline Phosphatase 129 H (34-104) U/L Ammonia 96 H (16-53) mcmol/L Total Protein 6.2 L (6.4-8.9) g/dL Albumin 2.5 L (3.2-5.2) g/dL Globulin 3.7 (2-4) g/dL Albumin/Globulin Ratio 0.7 L (1-3) 03/08/18 Range/Units 19:50 WBC (3.5-10.8) 10^3/ul RBC (4.0-5.4) 10^6/ul Hgb (14.0-18.0) g/dl Hct (42-52) % MCV (80-94) fL MCH (27-31) pg MCHC (31-36) g/dl RDW (10.5-15) % Plt Count (150-450) 10^3/ul MPV (7.4-10.4) um3 Neut % (Auto) (38-83) % Lymph % (Auto) (25-47) % [place] % (Auto) (0-7) % Eos % (Auto) (0-6) % Baso % (Auto) (0-2) % Absolute Neuts (auto) (1.5-7.7) 10^3/ul Absolute Lymphs (auto) (1.0-4.8) 10^3/ul Absolute Monos (auto) (0-0.8) 10^3/ul Absolute Eos (auto) (0-0.6) 10^3/ul Absolute Basos (auto) (0-0.2) 10^3/ul Absolute Nucleated RBC 10^3/ul Nucleated RBC % INR (Anticoag Therapy) 1.43 H (0.77-1.02) Sodium (139-145) mmol/L Potassium (3.5-5.0) mmol/L Chloride (101-111) mmol/L Carbon Dioxide (22-32) mmol/L Anion Gap (2-11) mmol/L BUN (6-24) mg/dL Creatinine (0.67-1.17) mg/dL Est GFR ( Amer) (>60) Est GFR (Non-Af Amer) (>60) BUN/Creatinine Ratio (8-20) Glucose (70-100) mg/dL Calcium (8.6-10.3) mg/dL Total Bilirubin (0.2-1.0) mg/dL AST (13-39) U/L ALT (7-52) U/L Alkaline Phosphatase (34-104) U/L Ammonia (16-53) mcmol/L Total Protein (6.4-8.9) g/dL Albumin (3.2-5.2) g/dL Globulin (2-4) g/dL Albumin/Globulin Ratio (1-3) Result Diagrams: 03/08/18 19:50 03/08/18 19:50 Lab Statement: Any lab studies that have been ordered have been reviewed, and results considered in the medical decision making process. Complex Multi-Symp Course/Dx Assessment/Plan: 62 y/o man coming from rehab with draining skin ulcer on the umbilical hernia. He apparently is too medically intense for [facility], his father feels he needs ECF placement. Will [place] [facility], have ascites drained tomorrow in IR, renal case manager consult for placement. Check ammonia with h/o encephalopathy. - Diagnoses Provider Diagnoses: Skin ulcer, Umbilical hernia, Cirrhosis with alcoholism - Physician Notifications Discussed Care Of Patient With: Te Noriega Time Discussed With Above Provider: 20:18 Instructed by Provider To: Other - Accepts pt for admission. Discharge - Sign-Out/Discharge Documenting (check all that apply): Discharge/Admit/Transfer - Admit - Discharge Plan Condition: Stable Disposition: ADMITTED TO [facility] Referrals: Rosie Noriega MD [Primary Care Provider] - - Billing Disposition and Condition Condition: STABLE Disposition: [facility] The documentation as recorded by the Nehemias segundo Rebecca accurately reflects the service I personally performed and the decisions made by me, Ino Sands MD.
[2018-03-08] MEDS ORDERED: Albuterol HFA INHALER* 8 gm MDI INH PRN (23:42)
[2018-03-08] MEDS ORDERED: hydrOXYzine HCL TAB* 25 MG PO PRN (23:42)
[2018-03-09] MEDS: Heparin VIAL(*) 5000 UNITS/ML VIAL (FIVE THOUSAND) SUBCUT SCH ×3 (05:57→21:53)
[2018-03-09] MEDS: RiFAXimin* 550 MG TAB PO SCH ×2 (08:32→21:53)
[2018-03-09] MEDS: Omeprazole CAP* 20 MG PO SCH (08:33)
[2018-03-09] MEDS: CMCS Escitalopram (NF) 10 MG TAB PO SCH (08:33)
[2018-03-09] MEDS: levETIRAcetam TAB* 500 MG PO SCH ×2 (08:33→21:53)
[2018-03-09] MEDS: Spironolactone TAB* 25 MG PO SCH (08:33)
[2018-03-09] MEDS: Cyanocobalamin TAB* 500 MCG PO SCH (08:33)
[2018-03-09] MEDS: Propranolol TAB* 10 MG PO SCH (08:33)
[2018-03-09] MEDS: Furosemide TAB* 40 MG PO SCH (08:33)
[2018-03-09] MEDS: Folic Acid TAB* 1 MG PO SCH (08:33)
--- NOTE | 2018-03-09 08:47 | HP ---
CC: Dr. Rosie Noriega * HISTORY AND PHYSICAL: DATE OF ADMISSION: 03/08/18 PRIMARY CARE PROVIDER: Dr. Rosie Noriega HEALTHCARE PROXY: His sister, Cassandra CODE STATUS: Full. SOURCE OF INFORMATION: History obtained from interview of the patient, review of medical records from [facility]. RELIABILITY: Good. CHIEF COMPLAINT: Transferred to [facility] for unclear reasons. HISTORY OF PRESENT ILLNESS: This is a 62-year-old man with past medical history of cirrhosis secondary to alcohol abuse, recent hospital stay from 02/19 to 02/21/18 with alcohol abuse, discharged to [facility] for rehab, had been there about 9 days and per patient's report was told earlier this morning that he would likely be there for several more days. They would give him plenty of notice before he left. He was later pulled out of a room later in the afternoon and told to pack his bags and he was leaving and his father was in the waiting room. He was transferred by his father to [facility] Emergency Room after [facility] communicated his departure and imminent arrival to our staff. Review of records from [facility] indicate that he had seen their physician consistently with last documented visit with Dr. Peter Mo on 03/07/18. He documented a chronic umbilical hernia at that time and indicated that patient was in satisfactory condition for physical therapy, which would certainly benefit him and there are no contraindications. He further indicated on 03/07/18 that PT would be arranged. Mr. Mata indicated he thought he had a bed at [facility] and thought that is where he was being transported, but ended up at the [facility] ED. Further review of notes from [facility] indicate that there was copious drainage from his chronic umbilical hernia that was requiring q.2 hour drainage with saturation extending to his clothes. Indicated that patient's gastroenterology office was contacted and they suggested he be seen and potentially have it drained, although this information was not stated. When seen in emergency room, the patient feels well. He thought that the drainage from his umbilical hernia had increased after he was discharged, but then had decreased and is not draining at all when seen in the emergency room today. Our appreciation at this time that the patient was discharged from [facility] because of the drainage in his abdomen and deposited at the emergency room because he had no other place to go and I did not arrange discharge planning. PAST MEDICAL HISTORY: Includes: 1. Cirrhosis secondary to alcohol abuse. 2. Subdural hematoma. 3. Hypertension. 4. Asthma. 5. Depression. 6. History of seizures and CVA. 7. History of cholecystectomy. 8. Appendectomy. 9. Tonsillectomy. 10. ORIF of his ankle. 11. He has a chronic draining umbilical hernia. MEDICATIONS: 1. Keppra 500 mg twice daily. 2. Thiamine 100 mg daily. 3. Spironolactone 50 mg daily. 4. Xifaxan 550 mg twice daily. 5. Propranolol 10 mg daily. 6. Omeprazole 20 mg daily. 7. Multivitamin tab 1 tab daily. 8. Lactulose 30 mL 3 times a day as needed. 9. Gabapentin 300 mg at bedtime. 10. Lasix 40 mg daily. 11. Folic acid 1 mg daily. 12. Lexapro 10 mg daily. 13. Vitamin B12 500 mcg daily. 14. Albuterol 2 puffs every 4 hours as needed. 15. Magnesium 64 mg daily. ALLERGIES: LORAZEPAM, SERTRALINE, and PEAS. FAMILY HISTORY: Notable for mother with CVAs. SOCIAL HISTORY: History of alcohol abuse. REVIEW OF SYSTEMS: Negative. The patient denies fevers, chills, night sweats, pain, drainage has decreased, abdominal pain, diarrhea, constipation, confusion. PHYSICAL EXAMINATION GENERAL: Obese gentleman, lying flat in bed, interactive, pleasant in no apparent distress. VITAL SIGNS: In the emergency room: 130/45, heart rate 62, respiratory rate is 16, 99% on room air, T-max is 98.2. HEENT: His oropharynx is clear. He has moist mucous membranes. Sclerae are anicteric. NECK: He has non-elevated JVD. HEART: He has regular rate and rhythm with 2/6 systolic ejection murmur. ABDOMEN: Soft, it is mildly distended. He has a central umbilical hernia. It is difficult for this author to reproduce. There is a very small 1 mm or less ulceration about 5 o'clock on a circular size hernia that is nondraining at this time. EXTREMITIES: Warm and well perfused. He has 2+ lower extremity edema. He has erythema in his right diffusely. NEUROLOGIC: He is alert, oriented, and interactive. LABORATORY DATA: Labs reviewed notable for total bilirubin 2.9, which has decreased from his last stay. Ammonia is 96. INR is 1.4. Hemoglobin 8.5. ASSESSMENT AND PLAN: 1. This 62-year-old man with past medical history of alcohol abuse, recently discharged from [facility], now returning after a precipitous discharge, presumably for copious hernia drainage. 2. Hernia drainage, currently not draining, in the past has benefited from paracentesis, his last paracentesis of June 2017. This may be beneficial, although do not think that he warranted at this time. 3. Physical deconditioning. I think the patient still does warrant physical therapy. I think that [facility] discharged him prematurely to our service, it is unclear for what reason, it will be difficult to contact this evening. I would caution using their services in the future if there are not other extenuating circumstances that could be elucidated for why this patient was sent to our care. Hopefully, his recent stay with us will qualify him for care at [facility]. 4. Continue all other home medications. 5. DVT prophylaxis: Heparin subcu. [id number]/[facility] #: [id number] [facility] CAMPUSMaciej
[2018-03-09] MEDS: MAGNESIUM OXIDE 500 MG PO SCH (13:44)
--- NOTE | 2018-03-09 16:00 | PN ---
Subjective Date of Service: 03/09/18 Interval History: Patient states the drainage from his hernia has almost completely stopped. Patient states that his ascites is not causing him significant discomfort and that when he previously needed large volume paracentesis his ascites was much worse than it is now. Patient has not been on Lactulose but denies any AMS. Patient states that he usually is able to tell when he is developing hepatic encephalopathy. Patient denies F/C, N/V, abdominal pain, CP, SOB, dysuria, or other pain. Patient has previously been evaluated for hernia repair and says no surgeons have been willing to perform the surgery. Family History: Unchanged from Admission Social History: Unchanged from Admission Past Medical History: Unchanged from Admission Objective Active Medications: Albuterol (Ventolin Hfa Inhaler*) 2 puff INH Q4H PRN PRN Reason: SOB/WHEEZING Cyanocobalamin (Vitamin B12 Tab*) 1,000 mcg PO DAILY [facility] Last Admin: 03/09/18 08:33 Dose: 1,000 mcg Escitalopram Oxalate (Lexapro (Nf)) 10 mg PO DAILY [facility] Last Admin: 03/09/18 08:33 Dose: 10 mg Folic Acid (Folvite Tab*) 1 mg PO DAILY [facility] Last Admin: 03/09/18 08:33 Dose: 1 mg Furosemide (Lasix Tab*) 40 mg PO DAILY [facility] Last Admin: 03/09/18 08:33 Dose: 40 mg Gabapentin (Neurontin Cap(*)) 300 mg PO TID PRN PRN Reason: PAIN Heparin Sodium (Porcine) (Heparin Vial(*)) 5,000 units SUBCUT Q8HR [facility] Last Admin: 03/09/18 13:44 Dose: 5,000 units Hydroxyzine HCl (Atarax Tab*) 25 mg PO BID PRN PRN Reason: ANXIETY Lactulose (Lactulose*) 30 ml PO TID [facility] Last Admin: 03/09/18 13:44 Dose: 30 ml Levetiracetam (Keppra Tab*) 500 mg PO BID [facility] Last Admin: 03/09/18 08:33 Dose: 500 mg Pto:* (Magnesium Oxide [Magnesium] 500 Mg) 500 mg PO DAILY [facility] Last Admin: 03/09/18 13:44 Dose: 500 mg Omeprazole (Prilosec Cap*) 20 mg PO DAILY [facility] Last Admin: 03/09/18 08:33 Dose: 20 mg Propranolol HCl (Inderal Tab*) 10 mg PO DAILY [facility] Last Admin: 03/09/18 08:33 Dose: 10 mg Rifaximin (Xifaxan*) 550 mg PO BID [facility] Last Admin: 03/09/18 08:32 Dose: 550 mg Spironolactone (Aldactone Tab*) 50 mg PO QAM [facility] Last Admin: 03/09/18 08:33 Dose: 50 mg Oxygen Devices in Use Now: None Appearance: Patient is a 62yo male who appears stated age and is sitting in the bed in [facility]. Eyes: No Scleral Icterus, PERRLA Ears/Nose/Mouth/Throat: NL Teeth, Lips, Gums, Clear Oropharnyx, Mucous Membranes Moist Neck: NL Appearance and Movements; NL JVP, Trachea Midline Respiratory: Symmetrical Chest Expansion and Respiratory Effort, Clear to Auscultation Cardiovascular: NL Sounds; No Murmurs; No JVD, RRR, No Edema Abdominal: - - Distended, not tense, large umbilical hernia with small open area with no drainage. Lymphatic: No Cervical Adenopathy Extremities: No Clubbing, Cyanosis, - - 1+ edema in B/L LE. Skin: No Nodules or Sclerosis Neurological: Alert and Oriented x 3, NL Sensation, NL Muscle Strength and Tone , - - CN II-XII intact. Result Diagrams: 03/08/18 19:50 03/08/18 19:50 Additional Lab and Data: Lab Results Assess/Plan/Problems-Billing Assessment: Patient is a 62yo male with a PMH for Alcoholic Cirrhosis, CVA, Umbilical hernia , Asthma, SDH, HTN, who is here with continued drainage from his umbilical hernia, physical deconditioning and likely need for JOHN at discharge. - Patient Problems (1) Anemia Current Visit: No Status: Acute Code(s): D64.9 - ANEMIA, UNSPECIFIED SNOMED Code(s): 490814495 Comment: Chronic. hx of GI bleed, and hx of hemoperitoneum in the past. No obvious signs of bleeding. Iron Studies Recently showed ESTEPHANIA. Begin Iron supplementation. (2) Alcohol abuse Current Visit: No Status: Acute Code(s): F10.10 - ALCOHOL ABUSE, UNCOMPLICATED SNOMED Code(s): 00023235 Comment: Patient had a relapse into alcohol abuse before last hospitalization and was recently discharged from alcohol rehab due to complex medical problems. (3) Ascites Current Visit: No Status: Acute Priority: High Onset Date: 11/02/14 Code (s): R18.8 - OTHER ASCITES SNOMED Code(s): 633286376 Comment: Stable, draining from umbilical hernia but no other complications or indication for paracentesis. No signs of SBP. Continue diuretics. (4) Cirrhosis Current Visit: No Status: Acute Comment: Seems to be compensated, no hepatic encephalopathy. Ascites at Baseline LFTs at baseline. MELD 14. Continue lasix, rifaximin, aldactone Daily weights Follow up outpatient with Dr. Ferreira of . Will not be eligible for liver transplant for 6 months due to recent alcohol relapse. (5) Full code status Current Visit: No Status: Acute Priority: Medium Onset Date: 11/02/14 Code(s): Z78.9 - OTHER SPECIFIED HEALTH STATUS SNOMED Code(s): 638451342 (6) Unsteady gait Current Visit: No Status: Acute Priority: High Code(s): R26.81 - UNSTEADINESS ON FEET SNOMED Code(s): 01799675 Comment: Likely related to CVA. PT/OT. Need for JOHN. (7) Alcoholic hepatitis with ascites Current Visit: No Status: Chronic Code(s): K70.11 - ALCOHOLIC HEPATITIS WITH ASCITES SNOMED Code(s): 994270541 Comment: Bilirubin is up from baseline but this might be due to hemoconcentration. Ammonia level acceptable and no sign of encephalopathy. CT reviewed, minimal ascites fluid, no paracentesis indicated at this time (8) Hypertension Current Visit: No Status: Chronic Priority: Medium Code(s): I10 - ESSENTIAL (PRIMARY) HYPERTENSION SNOMED Code(s): 80314041 Comment: Controlled. Continue current medication regimen (9) Physical deconditioning Current Visit: No Status: Chronic Priority: High Code(s): R53.81 - OTHER MALAISE SNOMED Code(s): 15512102256274 Comment: PT/OT, will likely need JOHN at D/C. (10) Seizures Current Visit: No Status: Chronic Priority: Medium Code(s): R56.9 - UNSPECIFIED CONVULSIONS SNOMED Code(s): 54508740 Comment: Continue Keppra. Seizure precautions (11) DVT prophylaxis Current Visit: No Status: Acute Priority: Medium Onset Date: 11/02/14 Code(s): EOT8325 - SNOMED Code(s): 157834220 Comment: Ivana
[2018-03-09] MEDS: Ferrous Sulfate TAB* 325 MG PO SCH (16:41)
[2018-03-10] MEDS: Heparin VIAL(*) 5000 UNITS/ML VIAL (FIVE THOUSAND) SUBCUT SCH ×3 (06:03→21:40)
[2018-03-10 06:31] LABS: ABS Basophils 0.1 10^3/ul (0-0.2); ABS Eosinophils 0.3 10^3/ul (0-0.6); ABS Lymphocytes 1.7 10^3/ul (1.0-4.8); ABS Monocytes 0.6 10^3/ul (0-0.8); ABS Neutrophils 2.1 10^3/ul (1.5-7.7); ABS Nucleated RBC 0 10^3/ul; Eosinophil % 6.4 % (0-6); Hematocrit 28 % (42-52); Lymphocyte % 35.3 % (25-47); Mean Corpuscular HGB Conc 32 g/dl (31-36); Mean Corpuscular Hemoglobin 31 pg (27-31); Mean Corpuscular Volume 96 fL (80-94); Mean Platelet Volume 8.4 um3 (7.4-10.4); Nucleated Red Blood Cells % 0.6; Platelet Count 129 10^3/ul (150-450); Red Blood Count 2.89 10^6/ul (4.0-5.4); Red Cell Distribution Width 24 % (10.5-15); White Blood Count 4.8 10^3/ul (3.5-10.8)
[2018-03-10 06:47] LABS: EGFR Non-African American 101.5 (>60)
[2018-03-10] MEDS: Folic Acid TAB* 1 MG PO SCH (09:37)
[2018-03-10] MEDS: Spironolactone TAB* 25 MG PO SCH (09:37)
[2018-03-10] MEDS: Furosemide TAB* 40 MG PO SCH (09:37)
[2018-03-10] MEDS: levETIRAcetam TAB* 500 MG PO SCH ×2 (09:37→20:29)
[2018-03-10] MEDS: Ferrous Sulfate TAB* 325 MG PO SCH (09:38)
[2018-03-10] MEDS: Propranolol TAB* 10 MG PO SCH (09:38)
[2018-03-10] MEDS: CMCS Escitalopram (NF) 10 MG TAB PO SCH (09:38)
[2018-03-10] MEDS: RiFAXimin* 550 MG TAB PO SCH ×2 (09:38→20:29)
[2018-03-10] MEDS: Cyanocobalamin TAB* 500 MCG PO SCH (09:38)
[2018-03-10] MEDS: MAGNESIUM OXIDE 500 MG PO SCH (09:42)
[2018-03-10] MEDS: Omeprazole CAP* 20 MG PO SCH (09:42)
--- NOTE | 2018-03-10 16:01 | PN ---
Subjective Date of Service: 03/10/18 Interval History: Patient has no complaints today, no drainage from hernia. No F/C, N/V, abdominal pain, diarrhea, CP, SOB, dysuria, or other pain. No increase in ascites or uncomfortability. No Confusion, or feelings of intoxication. Family History: Unchanged from Admission Social History: Unchanged from Admission Past Medical History: Unchanged from Admission Objective Active Medications: Albuterol (Ventolin Hfa Inhaler*) 2 puff INH Q4H PRN PRN Reason: SOB/WHEEZING Cyanocobalamin (Vitamin B12 Tab*) 1,000 mcg PO DAILY [facility] Last Admin: 03/10/18 09:38 Dose: 1,000 mcg Escitalopram Oxalate (Lexapro (Nf)) 10 mg PO DAILY [facility] Last Admin: 03/10/18 09:38 Dose: 10 mg Ferrous Sulfate (Ferrous Sulfate Tab*) 325 mg PO DAILY [facility] Last Admin: 03/10/18 09:38 Dose: 325 mg Folic Acid (Folvite Tab*) 1 mg PO DAILY [facility] Last Admin: 03/10/18 09:37 Dose: 1 mg Furosemide (Lasix Tab*) 40 mg PO DAILY [facility] Last Admin: 03/10/18 09:37 Dose: 40 mg Gabapentin (Neurontin Cap(*)) 300 mg PO TID PRN PRN Reason: PAIN Heparin Sodium (Porcine) (Heparin Vial(*)) 5,000 units SUBCUT Q8HR [facility] Last Admin: 03/10/18 14:49 Dose: 5,000 units Hydroxyzine HCl (Atarax Tab*) 25 mg PO BID PRN PRN Reason: ANXIETY Lactulose (Lactulose*) 30 ml PO TID [facility] Last Admin: 03/10/18 14:49 Dose: 30 ml Levetiracetam (Keppra Tab*) 500 mg PO BID [facility] Last Admin: 03/10/18 09:37 Dose: 500 mg Pto:* (Magnesium Oxide [Magnesium] 500 Mg) 500 mg PO DAILY [facility] Last Admin: 03/10/18 09:42 Dose: 500 mg Omeprazole (Prilosec Cap*) 20 mg PO DAILY [facility] Last Admin: 03/10/18 09:42 Dose: Not Given Propranolol HCl (Inderal Tab*) 10 mg PO DAILY [facility] Last Admin: 03/10/18 09:38 Dose: 10 mg Rifaximin (Xifaxan*) 550 mg PO BID [facility] Last Admin: 03/10/18 09:38 Dose: 550 mg Spironolactone (Aldactone Tab*) 50 mg PO QAM [facility] Last Admin: 03/10/18 09:37 Dose: 50 mg Vital Signs - 8 hr 03/10/18 03/10/18 08:00 08:25 Temperature 98.7 F Pulse Rate 58 Respiratory 16 16 Rate Blood Pressure 120/58 (mmHg) O2 Sat by Pulse 97 Oximetry Oxygen Devices in Use Now: None Appearance: Patient is a 62yo male who appears stated age and is sitting in the bed in [facility]. Eyes: No Scleral Icterus, PERRLA Ears/Nose/Mouth/Throat: NL Teeth, Lips, Gums, Clear Oropharnyx, Mucous Membranes Moist Neck: NL Appearance and Movements; NL JVP, Trachea Midline Respiratory: Symmetrical Chest Expansion and Respiratory Effort, Clear to Auscultation Cardiovascular: NL Sounds; No Murmurs; No JVD, RRR, No Edema Abdominal: NL Sounds; No Tenderness; No Distention, - - Significant ascites, umbilical hernia with small open area. Hepatomegaly. Exam limited by body habitus. Lymphatic: No Cervical Adenopathy Extremities: No Edema, No Clubbing, Cyanosis Skin: No Nodules or Sclerosis Neurological: Alert and Oriented x 3, NL Sensation, NL Muscle Strength and Tone , - - CN II-XII intact, Result Diagrams: 03/10/18 05:50 03/10/18 07:17 Additional Lab and Data: Lab Results Assess/Plan/Problems-Billing Assessment: Patient is a 62yo male with a PMH for Alcoholic Cirrhosis, CVA, Umbilical hernia , Asthma, SDH, HTN, who is here with continued drainage from his umbilical hernia, physical deconditioning and likely need for JOHN at discharge. - Patient Problems (1) Anemia Current Visit: No Status: Acute Code(s): D64.9 - ANEMIA, UNSPECIFIED SNOMED Code(s): 350832666 Comment: Chronic. hx of GI bleed, and hx of hemoperitoneum in the past. No obvious signs of bleeding. Iron Studies Recently showed ESTEPHANIA. Begin Iron supplementation. (2) Alcohol abuse Current Visit: No Status: Acute Code(s): F10.10 - ALCOHOL ABUSE, UNCOMPLICATED SNOMED Code(s): 23020014 Comment: Patient had a relapse into alcohol abuse before last hospitalization and was recently discharged from alcohol rehab due to complex medical problems. (3) Ascites Current Visit: No Status: Acute Priority: High Onset Date: 11/02/14 Code (s): R18.8 - OTHER ASCITES SNOMED Code(s): 282079676 Comment: Stable, minimal draining from umbilical hernia but no other complications or indication for paracentesis. No signs of SBP. Continue diuretics. (4) Cirrhosis Current Visit: No Status: Acute Comment: Seems to be compensated, no hepatic encephalopathy. Ascites at Baseline LFTs at baseline. MELD 14. Continue lasix, rifaximin, aldactone Daily weights Follow up outpatient with Dr. Ferreira of . Will not be eligible for liver transplant for 6 months due to recent alcohol relapse. (5) Full code status Current Visit: No Status: Acute Priority: Medium Onset Date: 11/02/14 Code(s): Z78.9 - OTHER SPECIFIED HEALTH STATUS SNOMED Code(s): 575661243 (6) Unsteady gait Current Visit: No Status: Acute Priority: High Code(s): R26.81 - UNSTEADINESS ON FEET SNOMED Code(s): 39624866 Comment: Likely related to CVA. PT/OT. Need for JOHN. (7) Alcoholic hepatitis with ascites Current Visit: No Status: Chronic Code(s): K70.11 - ALCOHOLIC HEPATITIS WITH ASCITES SNOMED Code(s): 550417783 Comment: LFTs at baseline. Ammonia level acceptable and no sign of encephalopathy. No paracentesis indicated at this time (8) Hypertension Current Visit: No Status: Chronic Priority: Medium Code(s): I10 - ESSENTIAL (PRIMARY) HYPERTENSION SNOMED Code(s): 44348780 Comment: Controlled. Continue current medication regimen (9) Physical deconditioning Current Visit: No Status: Chronic Priority: High Code(s): R53.81 - OTHER MALAISE SNOMED Code(s): 78014133302782 Comment: PT/OT, will likely need JOHN at D/C. (10) Seizures Current Visit: No Status: Chronic Priority: Medium Code(s): R56.9 - UNSPECIFIED CONVULSIONS SNOMED Code(s): 38947419 Comment: Continue Keppra. Seizure precautions (11) DVT prophylaxis Current Visit: No Status: Acute Priority: Medium Onset Date: 11/02/14 Code(s): UHN9119 - SNOMED Code(s): 011656959 Comment: SCDs Status and Disposition: Hopeful Discharge to [facility] tomorrow
[2018-03-11] MEDS: Gabapentin CAP(*) 300 MG PO PRN ×2 (03:34→21:24)
[2018-03-11 05:39] LABS: ABS Basophils 0.1 10^3/ul (0-0.2); ABS Eosinophils 0.2 10^3/ul (0-0.6); ABS Lymphocytes 1.3 10^3/ul (1.0-4.8); ABS Monocytes 0.5 10^3/ul (0-0.8); ABS Neutrophils 1.8 10^3/ul (1.5-7.7); ABS Nucleated RBC 0 10^3/ul; Eosinophil % 6.2 % (0-6); Hematocrit 24 % (42-52); Hemoglobin 7.8 g/dl (14.0-18.0); Lymphocyte % 32.2 % (25-47); Mean Corpuscular HGB Conc 33 g/dl (31-36); Mean Corpuscular Hemoglobin 31 pg (27-31); Mean Corpuscular Volume 95 fL (80-94); Mean Platelet Volume 7.8 um3 (7.4-10.4); Nucleated Red Blood Cells % 0.1; Platelet Count 98 10^3/ul (150-450); Red Blood Count 2.53 10^6/ul (4.0-5.4); Red Cell Distribution Width 24 % (10.5-15); White Blood Count 3.9 10^3/ul (3.5-10.8)
[2018-03-11 05:50] LABS: EGFR Non-African American 106.2 (>60)
[2018-03-11] MEDS: Heparin VIAL(*) 5000 UNITS/ML VIAL (FIVE THOUSAND) SUBCUT SCH ×3 (05:58→21:25)
--- NOTE | 2018-03-11 08:32 | PN ---
Subjective Date of Service: 03/11/18 Interval History: Mr. Mata denies complaint. He specifically denies abdominal pain and further denies any drainage from his umbilical hernia. He denies chest pain, SOB, or nausea and is tolerating oral intake well. Family History: Unchanged from Admission Social History: Unchanged from Admission Past Medical History: Unchanged from Admission Objective Active Medications: Albuterol (Ventolin Hfa Inhaler*) 2 puff INH Q4H PRN Cyanocobalamin (Vitamin B12 Tab*) 1,000 mcg PO DAILY [facility] Escitalopram Oxalate (Lexapro (Nf)) 10 mg PO DAILY [facility] Ferrous Sulfate (Ferrous Sulfate Tab*) 325 mg PO DAILY [facility] Folic Acid (Folvite Tab*) 1 mg PO DAILY [facility] Furosemide (Lasix Tab*) 40 mg PO DAILY [facility] Gabapentin (Neurontin Cap(*)) 300 mg PO TID PRN Heparin Sodium (Porcine) (Heparin Vial(*)) 5,000 units SUBCUT Q8HR [facility] Hydroxyzine HCl (Atarax Tab*) 25 mg PO BID PRN Lactulose (Lactulose*) 30 ml PO TID [facility] Levetiracetam (Keppra Tab*) 500 mg PO BID [facility] Pto:* (Magnesium Oxide [Magnesium] 500 Mg) 500 mg PO DAILY [facility] Omeprazole (Prilosec Cap*) 20 mg PO DAILY [facility] Propranolol HCl (Inderal Tab*) 10 mg PO DAILY [facility] Rifaximin (Xifaxan*) 550 mg PO BID [facility] Spironolactone (Aldactone Tab*) 50 mg PO QAM [facility] Vital Signs: Temp Pulse Resp BP Pulse Ox 98.0 F 71 18 111/49 95 03/11/18 03:25 03/11/18 03:25 03/11/18 05:05 03/11/18 03:25 03/11/18 03:25 Oxygen Devices in Use Now: None Result Diagrams: 03/11/18 04:53 03/11/18 04:53 Additional Lab and Data: . Assess/Plan/Problems-Billing Assessment: Mr. Mata is a 62yo male with a PMH for alcoholic cirrhosis, CVA, Asthma, SDH, HTN, and umbilical hernia who is here with continued drainage from his umbilical hernia, physical deconditioning and likely need for JOHN at discharge. - Patient Problems (1) Alcoholic cirrhosis of liver with ascites Comment: - LFTs at baseline. - Ammonia level acceptable and no sign of encephalopathy. Continue lactulose and rifaximin. - No drainage from umbilical hernia. No indication for paracentesis. No signs of SBP. Continue diuretics. (2) Alcohol abuse Comment: - No current sign of withdrawal. - Patient had a relapse into alcohol abuse before last hospitalization and was recently discharged from alcohol rehab due to complex medical problems. (3) Anemia Comment: - Chronic, at baseline. - Hx of GI bleed, and hx of hemoperitoneum in the past. No obvious signs of bleeding. Iron studies recently showed ESTEPHANIA. - Continue iron supplementation. (4) Diabetes mellitus Status: Chronic Comment: - Diet controlled. (5) Hypertension Comment: - Controlled. - Continue furosemide, spironolactone, and propanolol. (6) Seizures Comment: - Continue Keppra. Seizure precautions (7) Physical deconditioning Comment: - PT/OT. (8) DVT prophylaxis Comment: - SCDs (9) Full code status Comment: Status and Disposition: Inpatient. Anticipate discharge to [facility] when bed available.
[2018-03-11] MEDS: Omeprazole CAP* 20 MG PO SCH (09:28)
[2018-03-11] MEDS: Spironolactone TAB* 25 MG PO SCH (09:28)
[2018-03-11] MEDS: Cyanocobalamin TAB* 500 MCG PO SCH (09:28)
[2018-03-11] MEDS: Ferrous Sulfate TAB* 325 MG PO SCH (09:28)
[2018-03-11] MEDS: RiFAXimin* 550 MG TAB PO SCH ×2 (09:28→21:24)
[2018-03-11] MEDS: CMCS Escitalopram (NF) 10 MG TAB PO SCH (09:28)
[2018-03-11] MEDS: levETIRAcetam TAB* 500 MG PO SCH ×2 (09:28→21:24)
[2018-03-11] MEDS: Furosemide TAB* 40 MG PO SCH (09:28)
[2018-03-11] MEDS: Propranolol TAB* 10 MG PO SCH (09:28)
[2018-03-11] MEDS: Folic Acid TAB* 1 MG PO SCH (09:28)
[2018-03-11] MEDS: MAGNESIUM OXIDE 500 MG PO SCH (09:29)
[2018-03-12] MEDS: Heparin VIAL(*) 5000 UNITS/ML VIAL (FIVE THOUSAND) SUBCUT SCH ×3 (05:33→22:04)
[2018-03-12] MEDS: Propranolol TAB* 10 MG PO SCH (08:28)
[2018-03-12] MEDS: Ferrous Sulfate TAB* 325 MG PO SCH (08:28)
[2018-03-12] MEDS: Spironolactone TAB* 25 MG PO SCH (08:29)
[2018-03-12] MEDS: Furosemide TAB* 40 MG PO SCH (08:29)
[2018-03-12] MEDS: Cyanocobalamin TAB* 500 MCG PO SCH (08:29)
[2018-03-12] MEDS: MAGNESIUM OXIDE 500 MG PO SCH (08:29)
[2018-03-12] MEDS: Omeprazole CAP* 20 MG PO SCH (08:29)
[2018-03-12] MEDS: CMCS Escitalopram (NF) 10 MG TAB PO SCH (08:29)
[2018-03-12] MEDS: Folic Acid TAB* 1 MG PO SCH (08:29)
[2018-03-12] MEDS: RiFAXimin* 550 MG TAB PO SCH ×2 (08:29→21:04)
[2018-03-12] MEDS: levETIRAcetam TAB* 500 MG PO SCH ×2 (08:29→21:04)
--- NOTE | 2018-03-12 08:54 | PN ---
Subjective Date of Service: 03/12/18 Interval History: Mr. Mata denies complaint today. He reports multiple falls with injury including subdural hematoma in the past. He becomes frustrated when I ask if there were related to alcohol. He and his sister believe he needs continued assistance and rehabilitation due to unsteady gait. He denies complaint including chest pain, SOB, nausea, or abdominal pain. Family History: Unchanged from Admission Social History: Unchanged from Admission Past Medical History: Unchanged from Admission Objective Active Medications: Albuterol (Ventolin Hfa Inhaler*) 2 puff INH Q4H PRN Cyanocobalamin (Vitamin B12 Tab*) 1,000 mcg PO DAILY [facility] Escitalopram Oxalate (Lexapro (Nf)) 10 mg PO DAILY [facility] Ferrous Sulfate (Ferrous Sulfate Tab*) 325 mg PO DAILY [facility] Folic Acid (Folvite Tab*) 1 mg PO DAILY [facility] Furosemide (Lasix Tab*) 40 mg PO DAILY [facility] Gabapentin (Neurontin Cap(*)) 300 mg PO TID PRN Heparin Sodium (Porcine) (Heparin Vial(*)) 5,000 units SUBCUT Q8HR [facility] Hydroxyzine HCl (Atarax Tab*) 25 mg PO BID PRN Lactulose (Lactulose*) 30 ml PO TID [facility] Levetiracetam (Keppra Tab*) 500 mg PO BID [facility] Pto:* (Magnesium Oxide [Magnesium] 500 Mg) 500 mg PO DAILY [facility] Omeprazole (Prilosec Cap*) 20 mg PO DAILY [facility] Propranolol HCl (Inderal Tab*) 10 mg PO DAILY [facility] Rifaximin (Xifaxan*) 550 mg PO BID [facility] Spironolactone (Aldactone Tab*) 50 mg PO QAM [facility] Vital Signs: Temp Pulse Resp BP Pulse Ox 98.3 F 63 18 118/55 100 03/12/18 07:30 03/12/18 07:30 03/12/18 07:30 03/12/18 07:30 03/12/18 07:30 Oxygen Devices in Use Now: None Appearance: Male lying in bed in NAD Eyes: No Scleral Icterus Ears/Nose/Mouth/Throat: Mucous Membranes Moist Neck: Trachea Midline Respiratory: Symmetrical Chest Expansion and Respiratory Effort, Clear to Auscultation Cardiovascular: NL Sounds; No Murmurs; No JVD, No Edema Abdominal: NL Sounds; No Tenderness; No Distention Lymphatic: No Cervical Adenopathy Extremities: No Edema Skin: No Rash or Ulcers Neurological: Alert and Oriented x 3, NL Muscle Strength and Tone Nutrition: Taking PO's Result Diagrams: 03/11/18 04:53 03/11/18 04:53 Additional Lab and Data: . Assess/Plan/Problems-Billing Assessment: Mr. Mata is a 62yo male with a PMH for alcoholic cirrhosis, CVA, Asthma, SDH, HTN, and umbilical hernia who is here with continued drainage from his umbilical hernia, physical deconditioning and likely need for JOHN at discharge. - Patient Problems (1) Alcoholic cirrhosis of liver with ascites Comment: - LFTs at baseline. - Ammonia level acceptable and no sign of encephalopathy. Continue lactulose and rifaximin. - No drainage from umbilical hernia. No indication for paracentesis. No signs of SBP. Continue diuretics. (2) Alcohol abuse Comment: - No current sign of withdrawal. - Patient had a relapse into alcohol abuse before last hospitalization and was recently discharged from alcohol rehab due to complex medical problems. (3) Anemia Comment: - Chronic, at baseline. - Hx of GI bleed, and hx of hemoperitoneum in the past. No obvious signs of bleeding. Iron studies recently showed ESTEPHANIA. - Continue iron supplementation. (4) Diabetes mellitus Status: Chronic Comment: - Diet controlled. (5) Hypertension Comment: - Controlled. - Continue furosemide, spironolactone, and propanolol. (6) Seizures Comment: - Continue Keppra. Seizure precautions (7) Physical deconditioning Comment: - PT/OT. (8) DVT prophylaxis Comment: - SCDs (9) Full code status Comment: Status and Disposition: Inpatient. Physical therapy to re-eval to determine if patient has a skilled need for short term rehab.
[2018-03-13] MEDS: Heparin VIAL(*) 5000 UNITS/ML VIAL (FIVE THOUSAND) SUBCUT SCH (05:38)
[2018-03-13] MEDS: Folic Acid TAB* 1 MG PO SCH (08:41)
[2018-03-13] MEDS: Ferrous Sulfate TAB* 325 MG PO SCH (08:41)
[2018-03-13] MEDS: Cyanocobalamin TAB* 500 MCG PO SCH (08:41)
[2018-03-13] MEDS: Propranolol TAB* 10 MG PO SCH (08:41)
[2018-03-13] MEDS: MAGNESIUM OXIDE 500 MG PO SCH (08:42)
[2018-03-13] MEDS: Omeprazole CAP* 20 MG PO SCH (08:42)
[2018-03-13] MEDS: CMCS Escitalopram (NF) 10 MG TAB PO SCH (08:42)
[2018-03-13] MEDS: levETIRAcetam TAB* 500 MG PO SCH (08:42)
[2018-03-13] MEDS: Furosemide TAB* 40 MG PO SCH (08:42)
[2018-03-13] MEDS: Spironolactone TAB* 25 MG PO SCH (08:42)
[2018-03-13] MEDS: RiFAXimin* 550 MG TAB PO SCH (08:42)
[2018-03-13] MEDS: Gabapentin CAP(*) 300 MG PO PRN (08:45)
--- NOTE | 2018-03-13 11:00 | PN ---
Subjective Date of Service: 03/13/18 Interval History: Patient seen and examined at bedside. Denies fever, chills, shortness of breath , chest discomfort, N/V/D. Pt denies drainage from his umbilical hernia. He reports decreased stamina and being deconditioned. He is upset that he has been here for a week, but is feeling encouraged that he will go to rehab today. Family History: Unchanged from Admission Social History: Unchanged from Admission Past Medical History: Unchanged from Admission Objective Active Medications: Albuterol (Ventolin Hfa Inhaler*) 2 puff INH Q4H PRN Reason: SOB/WHEEZING Cyanocobalamin (Vitamin B12 Tab*) 1,000 mcg PO DAILY [facility] Escitalopram Oxalate (Lexapro (Nf)) 10 mg PO DAILY [facility] Ferrous Sulfate (Ferrous Sulfate Tab*) 325 mg PO DAILY [facility] Folic Acid (Folvite Tab*) 1 mg PO DAILY [facility] Furosemide (Lasix Tab*) 40 mg PO DAILY [facility] Gabapentin (Neurontin Cap(*)) 300 mg PO TID PRN Reason: PAIN Heparin Sodium (Porcine) (Heparin Vial(*)) 5,000 units SUBCUT Q8HR [facility] Hydroxyzine HCl (Atarax Tab*) 25 mg PO BID PRN Reason: ANXIETY Lactulose (Lactulose*) 30 ml PO TID [facility] Levetiracetam (Keppra Tab*) 500 mg PO BID [facility] Pto:* (Magnesium Oxide [Magnesium] 500 Mg) 500 mg PO DAILY [facility] Omeprazole (Prilosec Cap*) 20 mg PO DAILY [facility] Propranolol HCl (Inderal Tab*) 10 mg PO DAILY [facility] Rifaximin (Xifaxan*) 550 mg PO BID [facility] Spironolactone (Aldactone Tab*) 50 mg PO QAM [facility] Vital Signs - 8 hr 03/13/18 03/13/18 03/13/18 05:06 07:21 08:00 Temperature 98.1 F 97.9 F Pulse Rate 67 65 Respiratory 16 18 18 Rate Blood Pressure 98/48 117/48 (mmHg) O2 Sat by Pulse 96 96 Oximetry 03/13/18 03/13/18 08:45 10:44 Temperature Pulse Rate Respiratory 18 18 Rate Blood Pressure (mmHg) O2 Sat by Pulse Oximetry Oxygen Devices in Use Now: None Appearance: NAD, laying in bed Ears/Nose/Mouth/Throat: Mucous Membranes Moist Respiratory: Symmetrical Chest Expansion and Respiratory Effort, Clear to Auscultation Cardiovascular: NL Sounds; No Murmurs; No JVD, RRR Abdominal: NL Sounds; No Tenderness; No Distention, - - Large umbilical hernia Extremities: No Edema Skin: No Rash or Ulcers Neurological: Alert and Oriented x 3 Lines/Tubes/Other Access: Clean, Dry and Intact Peripheral IV - site benign Nutrition: Taking PO's Result Diagrams: 03/11/18 04:53 03/11/18 04:53 Additional Lab and Data: . Assess/Plan/Problems-Billing Assessment: Mr. Mata is a 62yo male with a PMH for alcoholic cirrhosis, CVA, Asthma, SDH, HTN, and umbilical hernia who is here with continued drainage from his umbilical hernia, physical deconditioning and likely need for JOHN at discharge. - Patient Problems (1) Alcoholic cirrhosis of liver with ascites Code(s): K70.31 - ALCOHOLIC CIRRHOSIS OF LIVER WITH ASCITES SNOMED Code(s): 551538172 Comment: - LFTs at baseline. - Ammonia level acceptable and no sign of encephalopathy. - No drainage from umbilical hernia. No indication for paracentesis. No signs of SBP. - Continue lactulose, rifaximin, and diuretics. (2) Physical deconditioning Code(s): R53.81 - OTHER MALAISE SNOMED Code(s): 03215388740470 Comment: - Continue PT/OT. (3) Alcohol abuse Code(s): F10.10 - ALCOHOL ABUSE, UNCOMPLICATED SNOMED Code(s): 13899669 Comment: - No current sign of withdrawal. - Patient had a relapse into alcohol abuse before last hospitalization and was recently discharged from alcohol rehab due to complex medical problems. (4) Anemia Code(s): D64.9 - ANEMIA, UNSPECIFIED SNOMED Code(s): 751656006 Comment: - Chronic, at baseline. - Hx of GI bleed, and hx of hemoperitoneum in the past. No obvious signs of bleeding. Iron studies recently showed ESTEPHANIA. - Continue iron supplementation. (5) Diabetes mellitus Code(s): E11.9 - TYPE 2 DIABETES MELLITUS WITHOUT COMPLICATIONS SNOMED Code(s) : 33781892 Comment: - Diet controlled. (6) Hypertension Code(s): I10 - ESSENTIAL (PRIMARY) HYPERTENSION SNOMED Code(s): 29792406 Comment: - Controlled, SBP 90-120's. - Continue furosemide, spironolactone, and propanolol. (7) Seizures Code(s): R56.9 - UNSPECIFIED CONVULSIONS SNOMED Code(s): 40889425 Comment: - Seizure precautions. - Continue Keppra. (8) DVT prophylaxis Code(s): AGP3683 - SNOMED Code(s): 709679197 Comment: - SCDs (9) Full code status Code(s): Z78.9 - OTHER SPECIFIED HEALTH STATUS SNOMED Code(s): 932681190 Status and Disposition: Inpatient. Stable for discharge to short term rehab today.
[2018-03-13 11:47] VITALS: BP 120/59
--- NOTE | 2018-03-13 12:29 | DS ---
CC: Dr. Rosie Noriega; [place]* DATE OF ADMISSION: . DATE OF DISCHARGE: 03/13/2018. AGE: 62. ATTENDING PHYSICIAN: Dr. Diann Liu* (dictated by Leslee Mccoy NP). PRIMARY CARE PHYSICIAN: Dr. Rosie Noriega. PRIMARY DIAGNOSES: 1. Physical deconditioning. 2. Alcoholic cirrhosis of the liver with ascites. 3. Alcohol abuse. 4. Iron deficiency anemia. SECONDARY DIAGNOSES: 1. Diabetes mellitus, diet controlled. 2. Hypertension. 3. Seizure disorder. DISCHARGE MEDICATIONS: New home medications: 1. Ferrous Sulfate 325 mg oral daily. Continued home medications: 1. Propranolol 10 mg oral daily. 2. Furosemide 40 mg oral daily. 3. Lexapro 10 mg oral daily. 4. Epinephrine 0.1 mg intramuscular once as needed for allergy symptoms. 5. Albuterol HFA inhaler two puffs inhalation every 4 hours as needed for shortness of breath or wheeze. 6. Keppra 500 mg oral twice daily. 7. Omeprazole 20 mg oral daily. 8. Gabapentin 300 mg oral 3 times daily as needed for pain. 9. Hydroxyzine 25 mg oral twice daily as needed for anxiety. 10. Spironolactone 50 mg oral every morning. 11. Vitamin B1 100 mg oral daily. 12. Rifaximin 550 mg oral twice daily. 13. Magnesium Oxide 500 mg oral daily. 14. Folic acid 1 mg oral daily. 15. Vitamin B12 1,000 mcg oral daily. 16. Nasacort nasal spray one puff to both nares daily. 17. Lactulose 20 gm oral 3 times daily. HISTORY OF PRESENT ILLNESS/HOSPITAL COURSE: Mr. Mata is a 62-year-old male with a past medical history significant for cirrhosis secondary to alcohol abuse , subdural hematoma, hypertension, diet controlled diabetes mellitus, asthma, and depression who was recently hospitalized from February 19 to February 21 with alcohol abuse and was discharged to [facility] for alcohol rehab where he spent nine days. The patient reports being taken out of his room, being told to pack his bags, and told that his father was in the parking lot waiting for him. The patient was transferred by his father to the [facility] Emergency Room from [facility]. According the records from [facility], the patient had been seen there by a physician on March 07 where he had documented a chronic umbilical hernia with indication that the patient was in satisfactory condition for physical therapy which would benefit him with no contraindications. Mr. Mata indicated that he was going to be transported to a shelter for rehab, but ended up being brought to the [facility] ED. It was noted that the patient had reported copious drainage from his chronic umbilical hernia requiring every two hour dressing changes. The patient's Gastroenterology office was contacted and suggested the patient be seen and potentially have this drained. While in the emergency room it was felt that his umbilical hernia drainage had increased after he was discharged from the hospital but then had decreased and was not draining at all when he presented to the emergency room. He was evaluated by the Hospitalists for admission. While in the hospital, the patient was seen by Physical Therapy and felt to be deconditioned and warranted further physical therapy. His vital signs remained stable. He was continued on his Lactulose, Rifaximin, and diuretics. He had no signs of acute encephalopathy. His ammonia level was within normal limits. The patient was started on Ferrous Sulfate for his iron deficiency anemia. Mr. Mata is stable for discharge to [facility] today. Vital signs are as follows: Temperature 97.9, heart rate 65, respiratory rate 18, O2 sat 96 percent on room air, blood pressure 117/48. DISCHARGE PLAN: Mr. Mata will be discharged to [facility] today. Activity is as tolerated. He should be on a low sodium diet. In regards to his alcoholic cirrhosis with ascites, he should be continued on his Lactulose, Rifaximin, and Spironolactone. For his alcohol abuse, he should be continued to be encouraged to remain sober and to follow-up with AA upon discharge from rehab. For his anemia, he will be continued on Ferrous Sulfate. His diabetes mellitus is diet controlled and his glucoses have been controlled. For his hypertension, he has been mostly normotensive. He should be continued on his Furosemide, Spironolactone, and Propranolol. For his history of seizure disorder, he should be continued on Keppra and seizure precautions. For his physical decondition, he should have physical therapy and occupational therapy evaluations and treatment accordingly. Please contact his primary care provider, Dr. Rosie Noriega's office to set him up with a follow-up appointment when he is going to be discharged from rehab. The patient should return to the emergency room for any chest discomfort or shortness of breath. This is a summarized report of a complex medical history and hospital stay. For further details, please see the entire medical record. Time for this discharge was approximately 50 minutes, greater than one-half of that was spent with the patient [id number] discussing discharge plans and instructions. CONDITION ON DISCHARGE: Stable. Reviewed by HELEN HUI 03/14/18 [id number]/[facility] #: [id number] MARILUZ
== END 2018-03-13 12:35 | DRG 280 ==
LOC: ED 16:31 → MEDTELE 23:43 → OBSVTOIN 03-09 13:30 → SSU 03-10 19:29
PROVIDERS: ADMIT Internal Medicine; ATTEND Internal Medicine
DX: K70.31 Alcoholic cirrhosis of liver with ascites (principal); F10.10 Alcohol abuse, uncomplicated; D50.9 Iron deficiency anemia, unspecified; E11.9 Type 2 diabetes mellitus without complications; I10 Essential (primary) hypertension; G40.909 Epilepsy, unspecified, not intractable, without status epilepticus; J45.909 Unspecified asthma, uncomplicated; F32.9 Major depressive disorder, single episode, unspecified; K42.9 Umbilical hernia without obstruction or gangrene; E66.9 Obesity, unspecified; J42 Unspecified chronic bronchitis; R29.6 Repeated falls; E78.00 Pure hypercholesterolemia, unspecified; M17.0 Bilateral primary osteoarthritis of knee; R26.81 Unsteadiness on feet; Z79.51 Long term (current) use of inhaled steroids; Z86.73 Personal history of transient ischemic attack (TIA), and cerebral infarction without residual deficits; Z90.49 Acquired absence of other specified parts of digestive tract; Z90.89 Acquired absence of other organs; Z82.3 Family history of stroke; Z88.8 Allergy status to other drugs, medicaments and biological substances; Z91.018 Allergy to other foods; Z87.891 Personal history of nicotine dependence; Z87.820 Personal history of traumatic brain injury; Z68.31 Body mass index [BMI] 31.0-31.9, adult; Z91.030 Bee allergy status
CPT/HCPCS: 36415; 80048; 80053; 82140; 83735; 85025; 85610; 87641; 99284; A9270-GY; G0378; G8987-GO-CJ; G8988-GO-CI; J1644

== ENCOUNTER 2018-07-09 11:12 | Inpatient (IN) | payer BC ==
--- NOTE | 2018-07-09 12:04 | RAD ---
Indication: Confusion. Altered mental status. Liver failure. Comparison: August 24, 2017 and March 26, 2017 CT. Technique: Noncontrast CT vertex of skull through foramen magnum. 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 No new region of cuevas matter white matter obscuration, intra or extra-axial hemorrhage, or mass effect. Mild generalized prominence of the cerebral sulci and cerebellar fissures reflecting atrophy. Proportional enlargement of the ventricles. Unremarkable basal cisterns. Unremarkable orbital contents. No fracture or suspicious lesion of the calvarium or skull base. Grossly clear visualized paranasal sinuses and mastoid air spaces. IMPRESSION: #. No acute intracranial process evident. #. 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 Previous bifrontal intraparenchymal and extra-axial hemorrhage secondary to fall documented on March 26, 2017 CT. #. Mild cerebral and cerebellar involutional change.
--- NOTE | 2018-07-09 12:13 | ED ---
Altered Mental Status - HPI Summary HPI Summary: Patient is a 63 y/o male CHIC[place] who presents to the ED due to AMS for several days. He is disoriented and confused, and states that today is July 08, 1987. Patient fell earlier today, but states that it was this afternoon. He stopped taking his Lactulose over the past few days due it causing him diarrhea. Patient denies any pain or fevers. He drank 1 beer at 2:00 and 4:00 this morning. PMHx EtOH abuse. Patient is a level 5 caveat due to his AMS, therefore a proper history cannot be obtained. - History Of Current Complaint Chief Complaint: EDAltMentalStatus Stated Complaint: FALL/CONFUSION Time Seen by Provider: 07/09/18 11:23 Hx Obtained From: Patient, EMS Hx From Patient Unobtainable Due To: Altered Mental Status Onset/Duration: Still Present Timing: Constant, Lasting Days - 2-3 Character: Confusion Aggravating Factor(s): Medication Change - Stopped taking Lactulose Alleviating Factor(s): Nothing Associated Signs And Symptoms: Positive: Negative Related History: Other: - EtOH abuse - Allergies/Home Medications Allergies/Adverse Reactions: Allergies Allergy/AdvReac Type Severity Reaction Status Date / Time bee pollen Allergy Hives Verified 07/10/18 12:12 bee venom protein (honey bee) Allergy Hives Verified 07/10/18 12:12 lorazepam [From Ativan] Allergy See Comment Verified 07/09/18 11:16 sertraline Allergy Rash And Verified 07/09/18 11:16 Itching Home Medications: Home Medications Albuterol HFA INHALER* [Ventolin HFA Inhaler*] 2 puff INH Q4H PRN 07/09/18 [ History Confirmed 07/09/18] EPINEPHrine [Epipen 2-Maciej] 0.3 mg IM ONCE PRN 07/09/18 [History Confirmed ] Thiamine TAB* [Vitamin B-1 TAB*] 100 mg PO DAILY 07/09/18 [History Confirmed 11/25] PMH/Surg Hx/FS Hx/Imm Hx Endocrine/Hematology History: Reports: Hx Diabetes - elevated glucose after acute liver failure - diet controlled Denies: Hx Anticoagulant Therapy, Hx Thyroid Disease, Hx Anemia, Hx Unexplained Bleeding Cardiovascular History: Reports: Hx Hypercholesterolemia, Hx Hypertension Denies: Hx Aneurysm, Hx Angina, Hx Angioplasty, Hx Auto Implanted Cardiovert Defib, Hx Cardiac Arrest, Hx Cardiomegaly, Hx Congenital Heart Disease, Hx Congestive Heart Failure, Hx Coronary Artery Disease, Hx Deep Vein Thrombosis, Hx Embolism, Hx Hypotension, Hx Pacemaker/ICD, Hx Peripheral Vascular Disease, Hx Rheumatic Fever, Hx Syncope, Hx Valvular Heart Disease, Other Cardiovascular Problems/Disorders Respiratory History: Reports: Hx Asthma, Hx Chronic Bronchitis, Hx Seasonal Allergies - hay fever Denies: Hx Chronic Obstructive Pulmonary Disease (COPD), Hx Cystic Fibrosis, Hx Lung Cancer, Hx Pleural Effusion, Hx Pneumonia, Hx Pulmonary Edema, Hx Pulmonary Embolism, Hx Sleep Apnea, Other Respiratory Problems/Disorders GI History: Reports: Hx Cirrhosis, Hx Gall Bladder Disease, Hx Hiatal Hernia, Hx Ulcer Denies: Hx Crohn's Disease, Hx Diverticulosis, Hx Gastroesophageal Reflux Disease, Hx Gastrointestinal Bleed, Hx Irritable Bowel, Hx Jaundice, Hx Obstructive Bowel, Hx Ileostomy, Hx Pyloric Stenosis, Other GI Disorders History: Denies: Hx Dialysis, Hx Renal Disease Musculoskeletal History: Reports: Hx Arthritis - both knees, Hx Orthopedic Injury Denies: Hx Back Problems, Hx Bursitis, Hx Congenital Bone Abnormalities, Hx Fibromyalgia, Hx Gout, Hx Osteoporosis, Hx Scoliosis, Hx Tendonitis, Other Musculoskeletal History Sensory History: Reports: Hx Contacts or Glasses Denies: Hx Cataracts, Hx Eye Injury, Hx Eye Prosthesis, Hx Glaucoma, Hx Legally Blind, Hx Macular Degeneration, Hx Vision Problem, Hx Deafness, Hx Hearing Aid, Hx Hearing Problem, Other Sensory Impairments Opthamlomology History: Reports: Hx Contacts or Glasses Denies: Hx Cataracts, Hx Eye Injury, Hx Eye Prosthesis, Hx Glaucoma, Hx Legally Blind, Hx Macular Degeneration, Hx Vision Problem, Other Sensory Impairments Neurological History: Reports: Hx Headaches, Hx Seizures, Other Neuro Impairments/Disorders - Subdural Hematoma Denies: Hx Dementia Psychiatric History: Reports: Hx Depression, Hx Substance Abuse - ETOH Denies: Hx Anxiety, Hx Attention Deficit Hyperactivity Disorder, Hx Eating Disorder, Hx Panic Disorder, Hx Post Traumatic Stress Disorder, Hx Inpatient Treatment, Hx Community Mental Health Tx, Hx Schizophrenia, Hx Bipolar Disorder , Hx Suicide Attempt, Hx of Violent Episodes Against Others, Other Psychiatric Issues/Disorders - Surgical History Surgery Procedure, Year, and Place: RIGHT ANKLE ORIF. LEFT KNEE TENDON REPAIR. CHOLECYSECTOMY. APPENDECTOMY. TONSILECTOMY Hx Anesthesia Reactions: No Infectious Disease History: No Infectious Disease History: Reports: Hx of Known/Suspected MRSA Denies: Hx Clostridium Difficile, Hx Hepatitis, Hx Human Immunodeficiency Virus (HIV), Hx Shingles, Hx Tuberculosis, History Other Infectious Disease, Traveled Outside the [place] in Last 30 Days - Family History Known Family History: Negative: Cardiac Disease, Diabetes - Social History Alcohol Use: Occasionally Alcohol Amount: 1-2 drinks per pt Hx Substance Use: Yes Substance Use Type: Reports: None Substance Use Comment - Amount & Last Used: pt states he hasn't had a drink in 2 weeks Hx Tobacco Use: Yes Smoking Status (MU): Light Every Day Tobacco Smoker Type: Cigarettes Length of Time of Smoking/Using Tobacco: 5 years Have You Smoked in the Last Year: No Review of Systems Negative: Fever Neurological: Other - Confusion All Other Systems Reviewed And Are Negative: Yes Physical Exam - Summary Physical Exam Summary: VITAL SIGNS: Reviewed. GENERAL: Patient is a well-developed and nourished MALE who is lying comfortable in the stretcher.Patient is not in any acute respiratory distress. HEAD AND FACE: No signs of trauma. No ecchymosis, hematomas or skull depressions. No sinus tenderness. EYES: PERRLA, EOMI x 2, No injected conjunctiva, no nystagmus. No photophobia. Mild jaundice of sclera. EARS: Hearing grossly intact. Ear canals and tympanic membranes are within normal limits. MOUTH: Oropharynx within normal limits. NECK: Supple, trachea is midline, no adenopathy, no JVD, no carotid bruit, no c- spine tenderness, neck with full ROM. No meningeal signs, no Kernig's or brudzinskis signs. CHEST: Symmetric, no tenderness at palpation LUNGS: Clear to auscultation bilaterally. No wheezing or crackles. CVS: Regular rate and rhythm, S1 and S2 present, no murmurs or gallops appreciated. ABDOMEN: Soft, non-tender. Distended with some ascites. No rebound no guarding. Bowel sounds are normal. Umbilical hernia. EXTREMITIES: FROM in all major joints, no edema, no cyanosis or clubbing. NEURO: Alert but confused. No acute neurological deficits. Speech is normal and follows commands. SKIN: Dry and warm GCS: 15 Triage Information Reviewed: Yes Vital Signs On Initial Exam: Initial Vitals Pulse Resp BP Pulse Ox 64 22 106/59 97 07/09/18 11:09 07/09/18 11:09 07/09/18 11:09 07/09/18 11:09 Vital Signs Reviewed: Yes Diagnostics - Vital Signs Vital Signs Temp Pulse Resp BP Pulse Ox 07/09/18 11:14 98.1 F 67 14 109/59 97 07/09/18 11:09 64 22 106/59 97 - Laboratory Result Diagrams: 07/11/18 05:34 07/11/18 05:34 Lab Statement: Any lab studies that have been ordered have been reviewed, and results considered in the medical decision making process. - Radiology CXR Xray Interpretation: No Acute Changes - No radiographic evidence of acute cardiopulmonary disease. ED physician reviewed radiology report. Radiology Interpretation Completed By: Radiologist - CT Brain CT CT Interpretation Completed By: Radiologist - No acute intracranial process evident. 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 Previous bifrontal intraparenchymal and extra-axial hemorrhage secondary to fall documented on March 26, 2017 CT. Mild cerebral and cerebellar involutional change. ED physician reviewed radiology report. - EKG 12:04 Cardiac Rate: NL - 63 bpm EKG Rhythm: Sinus Rhythm EKG Interpretation: Diffuse ST abnormalities, no ST elevation Altered Mental Statu Course/Dx - Course Assessment/Plan: Patient is a 63 y/o male BIBA who presents to the ED due to AMS for several days. He is disoriented and confused, and states that today is July 08, 1987. Patient fell earlier today, but states that it was this afternoon. He stopped taking his Lactulose over the past few days due it causing him diarrhea. Patient denies any pain or fevers. He drank 1 beer at 2: 00 and 4:00 this morning. PMHx EtOH abuse. Patient is a level 5 caveat due to his AMS, therefore a proper history cannot be obtained. Blood work without any significant abnormality except for normocytic normochromic anemia, BUN is 5, glucose 121, lactic acid is 2.5, calcium is 8.1, total bili is 3.4, AST is 42, alkaline phosphatase is 151, BNP is 182,. Chest x-ray impression: No radiographic evidence of acute cardiopulmonary disease. Head CT impression: No acute intracranial process evident. The rest of the report as above. It seems patient is developing hepatic encephalopathy. He was given Lactulose. Because of the presenting symptomatology I discussed my physical exam, findings and test results with Dr. Cantu from the hospital services who accepted the patient for admission. Patient is hemodynamically stable. - Diagnoses Differential Diagnosis/HQI/PQRI: CVA, Hypoxia, Medication Reaction, Seizure, TIA Provider Diagnoses: Hepatic encephalopathy - Provider Notifications Discussed Care Of Patient With: Duane Cantu Time Discussed With Above Provider: 13:30 Instructed by Provider To: Admit As Inpatient Discharge - Sign-Out/Discharge Documenting (check all that apply): Patient Departure - Admit - Discharge Plan Condition: Stable Disposition: ADMITTED TO [facility] - Billing Disposition and Condition Condition: STABLE Disposition: Admitted to [facility] - Attestation Statements Document Initiated by Geraldineibe: Yes Documenting Scribe: Cori Ngo Provider For Whom Yonie is Documenting (Include Credential): Carlos Wilson MD Scribe Attestation: Cori Garay, scribed for Carlos Wilson MD on 07/11/18 at 0912. Scribe Documentation Reviewed: Yes Provider Attestation: The documentation as recorded by the scribeCori accurately reflects the service I personally performed and the decisions made by me, Carlos Wilson MD
--- NOTE | 2018-07-09 12:18 | RAD ---
INDICATION: Fall/confusion COMPARISON: Similar chest x-ray August 24, 2017 TECHNIQUE: PA and lateral views of the chest were obtained. FINDINGS: The heart and mediastinum are normal in size and contour. The lungs are grossly clear. There is no evidence of large pleural effusion. Visualized bones are normal for the patient's age. There is no radiographic evidence of free air beneath the diaphragm IMPRESSION: No radiographic evidence of acute cardiopulmonary disease.
[2018-07-09 12:23] LABS: ABS Basophils 0.1 10^3/ul (0-0.2); ABS Eosinophils 0.2 10^3/ul (0-0.6); ABS Lymphocytes 2.2 10^3/ul (1.0-4.8); ABS Monocytes 0.8 10^3/ul (0-0.8); ABS Neutrophils 2.8 10^3/ul (1.5-7.7); ABS Nucleated RBC 0 10^3/ul; Eosinophil % 3.4 % (0-6); Hematocrit 32 % (42-52); Hemoglobin 10.3 g/dl (14.0-18.0); Lymphocyte % 36.5 % (25-47); Mean Corpuscular HGB Conc 32 g/dl (31-36); Mean Corpuscular Hemoglobin 32 pg (27-31); Mean Corpuscular Volume 98 fL (80-94); Mean Platelet Volume 7.2 um3 (7.4-10.4); Nucleated Red Blood Cells % 0.1; Platelet Count 121 10^3/ul (150-450); Red Blood Count 3.26 10^6/ul (4.00-5.40); Red Cell Distribution Width 26 % (10.5-15)
[2018-07-09 12:32] LABS: EGFR Non-African American 90.4 (>60)
[2018-07-09 12:59] LABS: INR 1.48 (0.77-1.02)
[2018-07-09] MEDS ORDERED: Albuterol HFA INHALER* 8 gm MDI INH PRN (14:13)
[2018-07-09] MEDS ORDERED: hydrOXYzine HCL TAB* 25 MG PO PRN (14:13)
[2018-07-09] MEDS ORDERED: NS 0.9% 500 ML* 500 ML IV ONE (16:33)
[2018-07-09] MEDS ORDERED: Thiamine IV* 100 MG/ML 2 ML VIAL IM ONE (16:33)
[2018-07-09] MEDS ORDERED: Diazepam TAB(*) 10 MG PO SCH (17:00)
[2018-07-09] MEDS ORDERED: LORazepam TAB(*) 1 MG PO SCH ×2 (17:00)
[2018-07-09] MEDS: Diazepam TAB(*) 10 MG PO SCH (17:51)
[2018-07-09] MEDS ORDERED: NS 0.9% 1000 ML* 1,000 ML IV SCH (19:45)
[2018-07-09] MEDS: Gabapentin CAP(*) 300 MG PO SCH (20:17)
[2018-07-09] MEDS: RiFAXimin* 550 MG TAB PO SCH (20:17)
[2018-07-09] MEDS: Acetaminophen TAB* 325 MG PO PRN (20:18)
[2018-07-09] MEDS: levETIRAcetam TAB* 500 MG PO SCH (20:18)
--- NOTE | 2018-07-10 00:26 | PN ---
Progress Note - Progress Note Date of Service: 07/10/18 Note: Bladder scan >400 - straight cath x 1
[2018-07-10] MEDS ORDERED: Lidocaine 4% GEL* 10 GM TUBE TOPICAL PRN (00:52)
[2018-07-10] MEDS ORDERED: Lidocaine 2% JELLY* 6 ML JELLY TOPICAL ONE (01:30)
[2018-07-10 02:04] LABS: Urine Appearance Clear; Urine Blood Negative (Negative); Urine Color Amber; Urine Ketones Trace (Negative); Urine Protein Negative (Negative); Urine Specific Gravity 1.017 (1.010-1.030); Urine Urobilinogen Positive (Negative)
--- NOTE | 2018-07-10 02:35 | HP ---
CC: Dr. Rosie Noriega * HISTORY AND PHYSICAL: DATE OF ADMISSION: 07/09/18 TIME OF EVALUATION: 2 p.m. PRIMARY CARE PROVIDER: Rosie Noriega MD CHIEF COMPLAINT: "He is confused" as per sister. HISTORY OF PRESENT ILLNESS: Mr. Mata is a 63-year-old male with a past medical history of cirrhosis secondary to alcohol abuse, subdural hematoma, hypertension , asthma, depression, seizures who presented to the emergency room with increased confusion. Most of the history is obtained from his sister. She states that the patient continues to drink in response to stressful situations, especially now he is his and living with his sister. She states that he is not compliant with his medications especially lactulose and diuretics and she noted progressive confusion since yesterday morning. There is no report of fever, nausea, vomiting, diarrhea, shortness of breath, chest pain, or any other complaints. She states the patient drinks 6 beers a day and sometimes some [place] and he did not take his medications 4 to 5 days of the week, but lactulose he would take only twice a week. The patient is able to provide some history and he states his major issue now is his and that the sister is exaggerating the amount of alcohol he drinks. PAST MEDICAL HISTORY: 1. Liver cirrhosis secondary to alcohol abuse. 2. Subdural hematoma. 3. Hypertension. 4. Asthma. 5. Depression. 6. Seizures. 7. Chronic draining umbilical hernia. PAST SURGICAL HISTORY: 1. Status post cholecystectomy. 2. Status post appendectomy. 3. Status post tonsillectomy. 4. Status post ankle ORIF. MEDICATION LIST: 1. Albuterol HFA 2 puffs inhaled q.4 hours p.r.n. shortness of breath. 2. Vitamin B12 500 mcg p.o. daily. 3. EpiPen 0.3 mg IM as needed for anaphylaxis. 4. Escitalopram 10 mg p.o. daily. 5. Folic acid 1 mg p.o. daily. 6. Furosemide 40 mg p.o. daily. 7. Gabapentin 300 mg p.o. at bedtime. 8. Hydroxyzine 25 mg p.o. b.i.d. as needed for anxiety. 9. Lactulose 20 g p.o. t.i.d. 10. Keppra 500 mg p.o. b.i.d. 11. Magnesium oxide 500 mg p.o. daily. 12. Omeprazole 20 mg p.o. daily. 13. Propranolol 10 mg p.o. daily. 14. Rifaximin 550 mg p.o. b.i.d. 15. Spironolactone 50 mg p.o. q.a.m. 16. Thiamine 100 mg p.o. daily. 17. Nasacort 1 puff to both nares at bedtime. Please note that as described in the HPI, the patient is not compliant with the medications. ALLERGIES: The patient had extreme sedation with LORAZEPAM. He also had rash and itching with SERTRALINE and hives with BEE STINGS. FAMILY HISTORY: Mother had CVA. SOCIAL HISTORY: No history of tobacco or drug use. He continues to drink despite his diagnosis of liver cirrhosis. Surrogate decision maker is his sister, Cassandra Mata, phone number is [phone]. REVIEW OF SYSTEMS: A 14-point review of systems was attempted, but it is limited due to the patient's confusion. All the pertinent negative and positive findings I was able to obtain are in the HPI. PHYSICAL EXAMINATION GENERAL: The patient is a middle-aged obese male that appears older than stated age, lying in the ED stretcher, not in acute distress. VITAL SIGNS: Temperature 97.1, heart rate is 64, respiratory rate is 18, oxygen saturation is 99% on room air, blood pressure is 133/57. HEENT: Pupils are equal. Moist mucous membranes. CHEST: Breath sounds bilaterally decreased in bases with no added sounds. CVS: Normal S1 and S2. Regular rate and rhythm. ABDOMEN: Obese with a large umbilical hernia. There is no drainage at this time and no significant fluid shift. EXTREMITIES: No edema. NEURO: He is alert and oriented x2 to self and place. Able to move all 4 extremities. LABORATORY AND IMAGING DATA: The patient had a CBC that showed WBC of 6, hemoglobin of 10.3, hematocrit of 32, platelets of 121 with 46% neutrophils. INR is 1.4. Chemistry showed a sodium of 138, potassium of 4.0, chloride of 107 , bicarb of 25, BUN is 5, glucose 121. Lactic acid 2.5. Calcium of 8.1. Magnesium of 1.9. LFTs showed a total bilirubin of 3.4, AST of 42, ALT of 16, alk phos of 151. Ammonia of 123. CPK 135. Troponin 0. BNP 182. TSH is 1.5. Serum alcohol level was less than 10. CT brain showed no acute intracranial process, only chronic encephalomalacia at the bilateral frontal lobe gyrus rectus that mostly commonly reflects sequelae of previous trauma. Chest x-ray showed no radiographic evidence of acute cardiopulmonary disease. EKG showed sinus rhythm at 63 beats per minute with no ST-T changes with no significant change from prior one from February 2018. ASSESSMENT AND PLAN: Mr. Mata is a 63-year-old male with a past medical history of liver cirrhosis, alcohol abuse, subdural hematoma, hypertension, asthma, depression, seizures who presented to the emergency room with confusion, found to have hepatic encephalopathy secondary to medication noncompliance. 1. Hepatic encephalopathy. The patient continues to drink and is not compliant with his medications. We are going to resume lactulose and monitor his mental status and ammonia level. As per sister, in the past, the patient has made statements about pursuing palliative care as he is not interested in further treatment and when this episode of encephalopathy has resolved, we may pursue that route. I am also going to continue his rifaximin. At this point, there is no evidence of upper GI bleed or infection. The source appears to be solely noncompliance. 2. Liver cirrhosis. The patient continues to drink and as per sister, he is not interested in rehab or any other treatment. He will be started on a WAM protocol with diazepam including a taper since he has a history of seizures. 3. Seizures. We will continue Keppra. 4. Portal hypertension. We will continue propranolol. 5. DVT prophylaxis. The patient has a score of 3 on the DVT Prophylaxis Risk assessment Guide and he will be started on SCDs as he is at high risk for bleeding. 6. Code status is full. TIME SPENT: Approximately 55 minutes were spent with the patient and sister interview, medical records review, physical examination to complete this admission, more than half of this time was spent [id number] with the patient in coordination of care. [id number]/[facility] #: [id number] MELLISAD
[2018-07-10] MEDS: Diazepam TAB(*) 10 MG PO SCH ×3 (02:36→21:58)
[2018-07-10 07:12] LABS: ABS Basophils 0 10^3/ul (0-0.2); ABS Eosinophils 0.1 10^3/ul (0-0.6); ABS Lymphocytes 1.6 10^3/ul (1.0-4.8); ABS Monocytes 0.6 10^3/ul (0-0.8); ABS Neutrophils 2.3 10^3/ul (1.5-7.7); ABS Nucleated RBC 0 10^3/ul; Eosinophil % 2.7 % (0-6); Hematocrit 29 % (42-52); Hemoglobin 9.5 g/dl (14.0-18.0); Lymphocyte % 34.9 % (25-47); Mean Corpuscular HGB Conc 33 g/dl (31-36); Mean Corpuscular Hemoglobin 32 pg (27-31); Mean Corpuscular Volume 97 fL (80-94); Nucleated Red Blood Cells % 0; Platelet Count 90 10^3/ul (150-450); Red Blood Count 2.96 10^6/ul (4.00-5.40); Red Cell Distribution Width 25 % (10.5-15); White Blood Count 4.7 10^3/ul (3.5-10.8)
[2018-07-10 07:39] LABS: EGFR Non-African American 84.7 (>60)
[2018-07-10] MEDS: CMCS Escitalopram (NF) 10 MG TAB PO SCH (08:25)
[2018-07-10] MEDS: Propranolol TAB* 10 MG PO SCH (08:25)
[2018-07-10] MEDS: Cyanocobalamin TAB* 500 MCG PO SCH (08:25)
[2018-07-10] MEDS: levETIRAcetam TAB* 500 MG PO SCH ×2 (08:25→21:50)
[2018-07-10] MEDS: Spironolactone TAB* 25 MG PO SCH (08:26)
[2018-07-10] MEDS: Multivitamins/Minerals TAB PO SCH (08:26)
[2018-07-10] MEDS: Thiamine TAB* 100 MG TAB PO SCH (08:26)
[2018-07-10] MEDS: Folic Acid TAB* 1 MG PO SCH (08:26)
[2018-07-10] MEDS: Omeprazole CAP* 20 MG PO SCH (08:27)
[2018-07-10] MEDS: RiFAXimin* 550 MG TAB PO SCH ×2 (08:27→21:48)
[2018-07-10] MEDS: Furosemide TAB* 40 MG PO SCH (08:27)
[2018-07-10] MEDS ORDERED: Folic Acid TAB* 1 MG PO SCH (09:00)
[2018-07-10] MEDS: Acetaminophen TAB* 325 MG PO PRN (10:33)
[2018-07-10] MEDS ORDERED: Iodixanol* (CONTRAST) 320 MG/ML 100 ML SDV IV ONE (12:01)
--- NOTE | 2018-07-10 14:50 | RAD ---
INDICATION: Right groin hematoma. COMPARISON: Comparison is made with a prior CT of the abdomen and pelvis from June 27, 2017. TECHNIQUE: A CT scan of the abdomen and pelvis was performed with intravenous and without oral contrast following intravenous injection of 120 ml of Visipaque 320 nonionic contrast. Contiguous axial sections were obtained from the lung bases through the symphysis pubis. Images were reconstructed in the coronal and sagittal planes. FINDINGS: LUNG BASES: There is mild dependent bilateral lower lobe subsegmental atelectasis. No pleural effusion is present. LIVER: The liver is decreased in attenuation most consistent with fatty infiltration. There is a nodular contour present suggestive of cirrhosis. GALLBLADDER: The patient is status post cholecystectomy. BILE DUCTS: No intra or extrahepatic ductal distention is seen. SPLEEN: The spleen is normal in size without significant focal abnormality. PANCREAS: The pancreas is normal in size. No ductal distention or calcifications are seen. ADRENAL GLANDS: The adrenal glands are normal in size. KIDNEYS: The kidneys are normal in size. No renal calculi or hydronephrosis is seen. No significant focal renal abnormality is seen. AORTA: The aorta is normal in caliber with moderate calcific plaque present. LYMPH NODES: No significantly enlarged lymph nodes are seen. BOWEL: The stomach, small and large bowel appear nondistended. The patient is status post appendectomy. There is mild thickening of the wall of the rectosigmoid colon suggestive of colitis. There is a periumbilical hernia containing fat. PELVIC ORGANS: No bladder wall thickening is seen. The prostate gland is normal in size. PERITONEUM: No free to peritoneal air is seen. There is a small to moderate amount of free intraperineal fluid within the abdomen and pelvis. No hematoma is seen. BONES: There is a mild chronic compression fracture of the T12 vertebral body which is unchanged from the prior study. The results of this exam were discussed with the referring clinician. IMPRESSION: 1. SMALL TO MODERATE AMOUNT OF ASCITES DECREASED FROM THE PRIOR STUDY. 2. HEPATIC STEATOSIS AND FINDINGS SUGGESTIVE OF CIRRHOSIS. 3. FINDINGS SUGGESTIVE OF MILD COLITIS OF THE RECTOSIGMOID COLON. 4. STATUS POST CHOLECYSTECTOMY AND APPENDECTOMY. 5. PERIUMBILICAL HERNIA CONTAINING FAT.
--- NOTE | 2018-07-10 15:06 | PN ---
Subjective Date of Service: 07/10/18 Interval History: Pt seen and examined. Meds and labs reviewed. CC: Urinary retention ROS: Denied WILSON/dizziness, F/C, N/V, CP, SOB, increased cough, sputum production , abd pain, diarrhea, constipation, myalgias, arthralgias, throat pain, and new skin lesions. The rest of the 14 point ROS are unremarkable. PHYSICAL EXAM: GEN APPEARANCE: Awake, not in acute distress HEENT: NC/AT, PERRLA, moist oral mucosa, (-) throat erythema NECK: Soft, supple, (-) cervical LAD, (-)JVD HEART: S1S2 WNL, RRR, No MRG CHEST: CTA, BL, GAE, No W/R/R ABD: Soft, Slightly distended with (+)umbilical hernia/NT, NABS 4x Q. Bruising of right pelvis; pt claims this was post-fall EXT: No C/C/E SKIN: Warm to touch PSYCH: No active psychosis, hallucinations, depression, SI/HI NEURO: (-) Asterexis Objective Active Medications: Acetaminophen (Tylenol Tab*) 650 mg PO Q4H PRN PRN Reason: PAIN Last Admin: 07/10/18 10:33 Dose: 650 mg Albuterol (Ventolin Hfa Inhaler*) 2 puff INH Q4H PRN PRN Reason: SHORTNESS OF BREATH Cyanocobalamin (Vitamin B12 Tab*) 500 mcg PO DAILY [facility] Last Admin: 07/10/18 08:25 Dose: 500 mcg Diazepam (Valium Tab(*)) 0 - 30 mg PO .PER [facility] PROTOCOL AILYN; Protocol Diazepam (Valium Tab(*)) 10 mg PO Q12H AILYN; Taper Stop: 07/12/18 12:59 Last Admin: 07/10/18 10:34 Dose: 10 mg Escitalopram Oxalate (Lexapro (Nf)) 10 mg PO DAILY AILYN Last Admin: 07/10/18 08:25 Dose: 10 mg Folic Acid (Folvite Tab*) 1 mg PO DAILY [facility] Last Admin: 07/10/18 08:26 Dose: 1 mg Furosemide (Lasix Tab*) 40 mg PO DAILY [facility] Last Admin: 07/10/18 08:27 Dose: 40 mg Gabapentin (Neurontin Cap(*)) 300 mg PO BEDTIME [facility] Last Admin: 07/09/18 20:17 Dose: 300 mg Lactulose (Lactulose*) 30 ml PO TID [facility] Last Admin: 07/10/18 15:03 Dose: 30 ml Levetiracetam (Keppra Tab*) 500 mg PO BID [facility] Last Admin: 07/10/18 08:25 Dose: 500 mg Multivitamins/Minerals (Theragran/Minerals Tab*) 1 tab PO DAILY [facility] Last Admin: 07/10/18 08:26 Dose: 1 tab Omeprazole (Prilosec Cap*) 20 mg PO DAILY [facility] Last Admin: 07/10/18 08:27 Dose: 20 mg Propranolol HCl (Inderal Tab*) 10 mg PO DAILY [facility] Last Admin: 07/10/18 08:25 Dose: 10 mg Rifaximin (Xifaxan*) 550 mg PO BID [facility] Last Admin: 07/10/18 08:27 Dose: 550 mg Spironolactone (Aldactone Tab*) 50 mg PO QAM [facility] Last Admin: 07/10/18 08:26 Dose: 50 mg Thiamine HCl (Vitamin B-1 Tab*) 100 mg PO DAILY [facility] Last Admin: 07/10/18 08:26 Dose: 100 mg Vital Signs - 8 hr 07/10/18 07/10/18 07/10/18 08:00 08:09 08:11 Temperature 98.4 F Pulse Rate 82 Respiratory 15 18 Rate Blood Pressure 85/21 130/68 (mmHg) O2 Sat by Pulse 94 Oximetry 07/10/18 07/10/18 07/10/18 10:00 10:25 10:34 Temperature 98.2 F Pulse Rate 75 Respiratory 22 17 Rate Blood Pressure 134/64 (mmHg) O2 Sat by Pulse 93 Oximetry 07/10/18 07/10/18 12:19 12:30 Temperature 98.5 F Pulse Rate 88 Respiratory 15 15 Rate Blood Pressure 128/60 (mmHg) O2 Sat by Pulse 96 Oximetry Oxygen Devices in Use Now: None Result Diagrams: 07/10/18 06:55 07/10/18 06:55 Assess/Plan/Problems-Billing Assessment: - Patient Problems (1) Hepatic encephalopathy Current Visit: Yes Status: Acute Code(s): K72.90 - HEPATIC FAILURE, UNSPECIFIED WITHOUT COMA SNOMED Code(s): 10341080 Comment: -Continue lactulose and Xifaxan (2) Cirrhosis Current Visit: No Status: Acute Comment: -MELD score = 15 -Continue watchful waiting (3) Ascites Current Visit: No Status: Acute Priority: High Onset Date: 11/02/14 Code (s): R18.8 - OTHER ASCITES SNOMED Code(s): 001747984 Comment: -Continue Spirinolactone and Lasix (4) Urinary retention Current Visit: Yes Status: Acute Code(s): R33.9 - RETENTION OF URINE, UNSPECIFIED SNOMED Code(s): 417382779 Comment: -CT of abd/pelvis do not show any obvious anatomical defect and bruising of right pelvis likely due to pts history of recent fall -Will re-try placing galeana and to consult Urology if it fails (5) DVT prophylaxis Current Visit: Yes Status: Acute Code(s): PVO2167 - SNOMED Code(s): 835603555 Comment: -Continue SCDs Status and Disposition: -As above
[2018-07-10] MEDS: Gabapentin CAP(*) 300 MG PO SCH (21:48)
[2018-07-10] MEDS: Tamsulosin CAP* 0.4 MG PO SCH (21:57)
[2018-07-11 06:00] LABS: ABS Basophils 0 10^3/ul (0-0.2); ABS Eosinophils 0.2 10^3/ul (0-0.6); ABS Lymphocytes 1.2 10^3/ul (1.0-4.8); ABS Monocytes 0.4 10^3/ul (0-0.8); ABS Neutrophils 1.7 10^3/ul (1.5-7.7); ABS Nucleated RBC 0 10^3/ul; Eosinophil % 4.6 % (0-6); Hematocrit 27 % (42-52); Lymphocyte % 33.2 % (25-47); Mean Corpuscular HGB Conc 33 g/dl (31-36); Mean Corpuscular Hemoglobin 32 pg (27-31); Mean Corpuscular Volume 97 fL (80-94); Mean Platelet Volume 7.1 um3 (7.4-10.4); Nucleated Red Blood Cells % 0.3; Platelet Count 73 10^3/ul (150-450); Red Blood Count 2.82 10^6/ul (4.00-5.40); Red Cell Distribution Width 24 % (10.5-15); White Blood Count 3.6 10^3/ul (3.5-10.8)
[2018-07-11 07:00] LABS: EGFR Non-African American 91.6 (>60)
[2018-07-11] MEDS ORDERED: Potassium Chlor TAB* 20 MEQ TAB.ER PO STA (08:34)
[2018-07-11] MEDS: Folic Acid TAB* 1 MG PO SCH (08:42)
[2018-07-11] MEDS: Furosemide TAB* 40 MG PO SCH (08:42)
[2018-07-11] MEDS: Propranolol TAB* 10 MG PO SCH (08:42)
[2018-07-11] MEDS: levETIRAcetam TAB* 500 MG PO SCH ×2 (08:42→20:16)
[2018-07-11] MEDS: Thiamine TAB* 100 MG TAB PO SCH (08:42)
[2018-07-11] MEDS: Omeprazole CAP* 20 MG PO SCH (08:42)
[2018-07-11] MEDS: Multivitamins/Minerals TAB PO SCH (08:42)
[2018-07-11] MEDS: Cyanocobalamin TAB* 500 MCG PO SCH (08:42)
[2018-07-11] MEDS: Spironolactone TAB* 25 MG PO SCH (08:47)
[2018-07-11] MEDS: RiFAXimin* 550 MG TAB PO SCH ×2 (08:47→20:17)
[2018-07-11] MEDS: CMCS Escitalopram (NF) 10 MG TAB PO SCH (08:52)
[2018-07-11] MEDS: Diazepam TAB(*) 10 MG PO SCH ×2 (08:54→20:27)
[2018-07-11] MEDS ORDERED: Magnesium Sulfate IV* 3 GM in NS 0.9% 100 ML* 100 ML IVPB ONE (09:00)
[2018-07-11] MEDS ORDERED: Albumin Human 25%* 25 GM/100 ML BTL IV ONE (17:02)
--- NOTE | 2018-07-11 17:15 | PN ---
Subjective Date of Service: 07/11/18 Interval History: Pt seen and examined. Meds and labs reviewed. CC: NA ROS: Denied WILSON/dizziness, F/C, N/V, CP, SOB, increased cough, sputum production , abd pain, diarrhea, constipation, myalgias, arthralgias, throat pain, and new skin lesions. The rest of the 14 point ROS are unremarkable. PHYSICAL EXAM: GEN APPEARANCE: Awake, Ox3, not in acute distress HEENT: NC/AT, PERRLA, moist oral mucosa, (-) throat erythema NECK: Soft, supple, (-) cervical LAD, (-)JVD HEART: S1S2 WNL, RRR, No MRG CHEST: CTA, BL, GAE, No W/R/R ABD: Soft, Slightly distended with (+)umbilical hernia/NT, NABS 4x Q. Bruising of right pelvis; pt claims this was post-fall EXT: No C/C/E SKIN: Warm to touch PSYCH: No active psychosis, hallucinations, depression, SI/HI NEURO: (-) Asterexis Objective Active Medications: Acetaminophen (Tylenol Tab*) 650 mg PO Q4H PRN PRN Reason: PAIN Last Admin: 07/10/18 10:33 Dose: 650 mg Albuterol (Ventolin Hfa Inhaler*) 2 puff INH Q4H PRN PRN Reason: SHORTNESS OF BREATH Cyanocobalamin (Vitamin B12 Tab*) 500 mcg PO DAILY [facility] Last Admin: 07/11/18 08:42 Dose: 500 mcg Diazepam (Valium Tab(*)) 0 - 30 mg PO .PER [facility] PROTOCOL AILYN; Protocol Diazepam (Valium Tab(*)) 10 mg PO Q12H AILYN; Taper Stop: 07/12/18 12:59 Last Admin: 07/11/18 08:54 Dose: 10 mg Escitalopram Oxalate (Lexapro (Nf)) 10 mg PO DAILY [facility] Last Admin: 07/11/18 08:52 Dose: 10 mg Folic Acid (Folvite Tab*) 1 mg PO DAILY [facility] Last Admin: 07/11/18 08:42 Dose: 1 mg Furosemide (Lasix Tab*) 40 mg PO DAILY [facility] Last Admin: 07/11/18 08:42 Dose: 40 mg Gabapentin (Neurontin Cap(*)) 300 mg PO BEDTIME [facility] Last Admin: 07/10/18 21:48 Dose: 300 mg Lactulose (Lactulose*) 30 ml PO TID [facility] Last Admin: 07/11/18 15:02 Dose: 30 ml Levetiracetam (Keppra Tab*) 500 mg PO BID [facility] Last Admin: 07/11/18 08:42 Dose: 500 mg Multivitamins/Minerals (Theragran/Minerals Tab*) 1 tab PO DAILY [facility] Last Admin: 07/11/18 08:42 Dose: 1 tab Omeprazole (Prilosec Cap*) 20 mg PO DAILY [facility] Last Admin: 07/11/18 08:42 Dose: 20 mg Propranolol HCl (Inderal Tab*) 10 mg PO DAILY [facility] Last Admin: 07/11/18 08:42 Dose: 10 mg Rifaximin (Xifaxan*) 550 mg PO BID [facility] Last Admin: 07/11/18 08:47 Dose: 550 mg Spironolactone (Aldactone Tab*) 50 mg PO QAM [facility] Last Admin: 07/11/18 08:47 Dose: 50 mg Tamsulosin HCl (Flomax Cap*) 0.4 mg PO BEDTIME [facility] Last Admin: 07/10/18 21:57 Dose: 0.4 mg Thiamine HCl (Vitamin B-1 Tab*) 100 mg PO DAILY [facility] Last Admin: 07/11/18 08:42 Dose: 100 mg Vital Signs - 8 hr 07/11/18 07/11/18 12:09 12:24 Temperature 98.4 F Pulse Rate 99 Respiratory 21 Rate Blood Pressure 97/41 130/60 (mmHg) O2 Sat by Pulse 96 Oximetry Oxygen Devices in Use Now: None Result Diagrams: 07/11/18 05:34 07/11/18 05:34 Microbiology and Other Data: Microbiology 07/11/18 08:00 Nasal Screen MRSA (PCR) - Final Nasal Mrsa Not Detected Assess/Plan/Problems-Billing Assessment: - Patient Problems (1) Hepatic encephalopathy Current Visit: Yes Status: Acute Code(s): K72.90 - HEPATIC FAILURE, UNSPECIFIED WITHOUT COMA SNOMED Code(s): 73191920 Comment: -Continue lactulose and Xifaxan -Pt does not have asterixis and per request of pts sister ammonia levels was repeated and has significantly decreased; tried to call sister to explain that in absence of symptoms and only a few points above ULN, that pt should be able to do well in outpt. However, no response and left message. -Will give pt IV Albumin x1 (2) Cirrhosis Current Visit: No Status: Acute Comment: -MELD score = 15 -Continue watchful waiting (3) Ascites Current Visit: No Status: Acute Priority: High Onset Date: 11/02/14 Code (s): R18.8 - OTHER ASCITES SNOMED Code(s): 793299558 Comment: -Continue Spirinolactone and Lasix -Will give25 g IV albumin x1 (4) Urinary retention Current Visit: Yes Status: Acute Code(s): R33.9 - RETENTION OF URINE, UNSPECIFIED SNOMED Code(s): 514232358 Comment: -CT of abd/pelvis do not show any obvious anatomical defect and bruising of right pelvis likely due to pts history of recent fall -Galeana placed yesterday using a smaller catheter -Will D/C now to see how pt tolerates not being on it -For bladder scan 8 hours post galeana D/C (5) DVT prophylaxis Current Visit: Yes Status: Acute Code(s): TMN5292 - SNOMED Code(s): 764565632 Comment: -Continue SCDs Status and Disposition: -Possible D/C in AM -Re-measure ammonia level in AM per sisters request
[2018-07-11] MEDS: Gabapentin CAP(*) 300 MG PO SCH (20:16)
[2018-07-11] MEDS: Tamsulosin CAP* 0.4 MG PO SCH (20:17)
[2018-07-11] MEDS: Acetaminophen TAB* 325 MG PO PRN (20:27)
[2018-07-12] MEDS: Diazepam TAB(*) 10 MG PO SCH ×2 (00:32→08:49)
[2018-07-12 07:15] LABS: INR 1.59 (0.77-1.02)
[2018-07-12] MEDS: Propranolol TAB* 10 MG PO SCH (08:46)
[2018-07-12] MEDS: RiFAXimin* 550 MG TAB PO SCH (08:46)
[2018-07-12] MEDS: Cyanocobalamin TAB* 500 MCG PO SCH (08:47)
[2018-07-12] MEDS: Thiamine TAB* 100 MG TAB PO SCH (08:47)
[2018-07-12] MEDS: Furosemide TAB* 40 MG PO SCH (08:47)
[2018-07-12] MEDS: CMCS Escitalopram (NF) 10 MG TAB PO SCH (08:47)
[2018-07-12] MEDS: Spironolactone TAB* 25 MG PO SCH (08:47)
[2018-07-12] MEDS: levETIRAcetam TAB* 500 MG PO SCH (08:47)
[2018-07-12] MEDS: Folic Acid TAB* 1 MG PO SCH (08:47)
[2018-07-12] MEDS: Multivitamins/Minerals TAB PO SCH (08:47)
[2018-07-12] MEDS: Omeprazole CAP* 20 MG PO SCH (08:49)
[2018-07-12] MEDS: Acetaminophen TAB* 325 MG PO PRN (08:52)
[2018-07-12 10:32] LABS: Red Blood Count 3.04 10^6/ul (4.00-5.40)
[2018-07-12 10:56] LABS: EGFR Non-African American 98.3 (>60)
[2018-07-12 11:36] LABS: ABS Basophils 0 10^3/ul (0-0.2); ABS Eosinophils 0.2 10^3/ul (0-0.6); ABS Lymphocytes 1.1 10^3/ul (1.0-4.8); ABS Monocytes 0.4 10^3/ul (0-0.8); ABS Neutrophils 1.8 10^3/ul (1.5-7.7); ABS Nucleated RBC 0 10^3/ul; Eosinophil % 5.5 % (0-6); Hematocrit 30 % (42-52); Hemoglobin 9.6 g/dl (14.0-18.0); Lymphocyte % 30.5 % (25-47); Mean Corpuscular HGB Conc 32 g/dl (31-36); Mean Corpuscular Hemoglobin 32 pg (27-31); Mean Corpuscular Volume 98 fL (80-94); Mean Platelet Volume 7.1 um3 (7.4-10.4); Nucleated Red Blood Cells % 0.2; Platelet Count 75 10^3/ul (150-450); Red Cell Distribution Width 23 % (10.5-15); White Blood Count 3.5 10^3/ul (3.5-10.8)
[2018-07-12 12:58] VITALS: BP 102/52
--- NOTE | 2018-07-13 06:04 | DS ---
CC: Dr. Blanca Walden; Dr. Carlos Wilson; Dr. Rosie Noriega. DISCHARGE SUMMARY: DATE OF ADMISSION: DATE OF DISCHARGE: 07/12/18 DISCHARGE DIAGNOSES: As follows: 1. Hepatic encephalopathy secondary to medication noncompliance. 2. History of alcoholic cirrhosis, relapse. 3. Ascites secondary to above. 4. Urinary retention likely due to benign prostatic hyperplasia, improved with Flomax. DISCHARGE MEDICATIONS: As follows: 1. Tylenol 650 mg p.o. q.8 p.r.n. maximum daily dose is 2 g per day. 2. Albuterol 2 puff MDI inhalation q.4 hours p.r.n. 3. Cyanocobalamin 500 mcg p.o. daily. 4. Lexapro 10 mg p.o. daily. 5. Folate 1 mg p.o. daily. 6. Lasix 40 mg p.o. daily. 7. Gabapentin 300 mg p.o. at bedtime. 8. Lactulose 45 mL p.o. 4 times a day. 9. Keppra 500 mg p.o. b.i.d. 10. Omeprazole 20 mg p.o. daily. 11. Propranolol 10 mg p.o. daily. 12. Xifaxan 550 mg p.o. b.i.d. 13. Spironolactone 50 mg q.a.m. 14. Tamsulosin 0.4 mg p.o. at bedtime. 15. Thiamine 100 mg p.o. daily. 16. Epinephrine 0.3 mg/0.3 mL IM once p.r.n. for allergic reactions. 17. Hydroxyzine 25 mg p.o. b.i.d. 18. Magnesium oxide 500 mg p.o. daily. 19. Triamcinolone nasal spray (Nasacort AQ nasal spray) 1 puff to both nares at bedtime. HISTORY OF PRESENT ILLNESS/HOSPITAL COURSE: The patient is a 63-year-old gentleman with hi story of hypertension, asthma, as well as EtOH cirrhosis who was admitted confused secondary to hepat ic encephalopathy. The patient's sister mentioned that he is noncompliant with his medications espec ially lactulose as well as his diuretics and continues to drink 6 beers a day sometimes with some trina rbon; however, the patient on subsequent evaluation once his encephalopathy resolved seems to be down playing his alcohol use where he mentions that his last alcoholic beverage was only about 3 weeks reji or. This is clearly not the case per his sister's recollection. He had been advised regarding treat ment of hepatic encephalopathy and was advised that usually the first signs of hepatic encephalopathy is reversal of his sleep wake cycle and if he does observe this he was advised to take an extra dose of lactulose and specially during times when someone observes that he is confused or he feels that h e is more confused. More importantly he had been advised regarding his sobriety as well as how any f orm and/or level of alcohol can further worsen his liver cirrhosis. He knows that [place] [facility] where liver is much more difficult to find for transplant in [facility] to other regions. He had been advised to avoid temptations and/or socializing with people who d rink alcohol and to be consistent with his AA meetings as well as outpatient rehab. He mentions that he has just recently been discharged from an inpatient rehab last March. The patient had been encour aged to continue his smith against his alcohol abuse history and/or predisposition. During his eval uation he had also some difficulty urinating and had some urinary retention and it was found that a n ormal-sized catheter was very difficult to thread in his urethra, but was able to tolerate smaller ca theter size and hence the patient was subsequently placed on tamsulosin and had subsequently disconti nued the Powers once tamsulosin has been given after a day or two and has done well without any other signs of urinary retention and likely due to BPH. We will defer subsequent followup with the patient 's primary care physician. The patient had been advised to follow up and/or call his PCP within 3 days post discharge. Once aga in he was advised that if he starts to notice reversal of his sleep wake cycle or if he or someone el se observes that he is more confused than normal to take an additional dose of lactulose and to toni nue doing so until he feels or somebody feels that he is currently at baseline and is no longer confu sed. He was advised to avoid alcohol of any amount. He was also advised to avoid socializing with in dividuals that will tempt him to drink including the social setting. He was advised to follow up reg ularly with his AA meetings and to consider outpatient rehab. He was advised that if his symptoms re sume or develop new ones or feel unwell for any reason to call his PCP first. If his PCP cannot ente rtain him due to scheduling issues alone to call [facility] if his issue is considered nonem ergent. He was advised to call my office regarding any questions, concerns, or further clarification s regarding his discharge plans and/or prescriptions and to take his medications as prescribed. REVIEW OF SYSTEMS: The patient currently denies any headaches, dizziness, fevers, chills, nausea, vo miting, chest pain, shortness of breath, increased cough. No sputum production, abdominal pain, diar oswaldo, constipation, pain, and/or increased frequency on urination, myalgias, arthralgias, throat lizabeth n, or new skin lesions. The rest of the 14-point review of systems are otherwise unremarkable. PHYSICAL EXAMINATION: Shows a most recent vital signs of records with blood pressure of 102/52, 98.3 degrees Fahrenheit, 78 beats per minute heart rate, 18 per minute respiratory rate, saturating at 94 % on room air. General Appearance: The patient is awake, alert, and oriented x3, not in acute distr ess. HEENT: Normocephalic and atraumatic. PERRLA. Extraocular muscles intact. Negative for icteru s. Moist oral mucosa. Negative throat erythema. Neck is soft, supple with no cervical lymphadenopa thy, no JVD. Heart: S1 and S2 within normal limits. Regular rate and rhythm. No murmurs, rubs, or gallops. Chest: Clear to auscultation bilaterally. Good air entry. No wheezes, rales, or rhonchi. Abdomen is soft, the patient mentions that his abdominal girth is at baseline. Normoactive bowel s ounds x4 Q. Extremities: No cyanosis, clubbing, or edema. Psychiatric: No active psychosis, depres latoya, suicidal, or homicidal ideations. Skin is warm to touch. TIME SPENT: The total time spent evaluating patient, reviewing pertinent data, and appropriate docum entation is greater than 30 minutes. [id number]/[facility] [place] #: [id number]
== END 2018-07-12 16:10 | disposition home or self-care (01) | DRG 280 ==
LOC: ED 11:12 → MED 14:16
PROVIDERS: ADMIT Internal Medicine; ATTEND Student in an Organized Health Care Education/Training Program
DX: K70.40 Alcoholic hepatic failure without coma (principal); K76.6 Portal hypertension; K70.31 Alcoholic cirrhosis of liver with ascites; F10.10 Alcohol abuse, uncomplicated; I10 Essential (primary) hypertension; J45.909 Unspecified asthma, uncomplicated; F32.9 Major depressive disorder, single episode, unspecified; E66.9 Obesity, unspecified; K42.9 Umbilical hernia without obstruction or gangrene; Z51.5 Encounter for palliative care; E11.9 Type 2 diabetes mellitus without complications; N40.1 Benign prostatic hyperplasia with lower urinary tract symptoms; J42 Unspecified chronic bronchitis; E78.00 Pure hypercholesterolemia, unspecified; M17.0 Bilateral primary osteoarthritis of knee; F17.210 Nicotine dependence, cigarettes, uncomplicated; R33.9 Retention of urine, unspecified; Z23 Encounter for immunization; Z88.8 Allergy status to other drugs, medicaments and biological substances; Z91.030 Bee allergy status; Z86.73 Personal history of transient ischemic attack (TIA), and cerebral infarction without residual deficits; Z91.048 Other nonmedicinal substance allergy status; Z90.49 Acquired absence of other specified parts of digestive tract; Z86.14 Personal history of Methicillin resistant Staphylococcus aureus infection; Z68.31 Body mass index [BMI] 31.0-31.9, adult; Z91.14 Patient's other noncompliance with medication regimen; Z87.820 Personal history of traumatic brain injury; Z82.3 Family history of stroke
CPT/HCPCS: 36415; 70450; 71046; 74177; 80053; 80320; 81003; 82140; 82550; 83605; 83735; 83880; 84100; 84443; 84484; 85025; 85610; 85730; 87641; 90686; 93005; 99284; A9270-GY; G0480; J3411; J3475; P9047; Q9967

== ENCOUNTER 2018-07-30 11:08 | Inpatient (IN) | payer BC ==
--- NOTE | 2018-07-30 11:36 | ED ---
Neurological HPI - HPI Summary HPI Summary: This pt is a 63 y/o male presenting to [facility] via EMS c/o confusion. Pt reports his confusion began yesterday. He additionally notes pain "all over." Denies SOB , fever, chills. Pt states "I think it's my ammonia level." He does not take his lactulose as supposed to because he states it upsets his stomach. Pt has been admitted to the ED twice this month for hepatic encephalopathy and on his last admission on 07/23 pt had elevated ammonia levels. - History of Current Complaint Chief Complaint: EDGeneral Stated Complaint: GENERAL ILLNESS Time Seen by Provider: 07/30/18 11:16 Hx Obtained From: Patient Onset/Duration: Started days ago - 1, Still Present Current Severity: Mild Pain Intensity: 4 - generalized Pain Scale Used: 0-10 Numeric Character: Confusion Aggravating: Nothing Alleviating: Nothing Associated Signs and Symptoms: Positive: Confusion, Pain - generalized aching - Additional Pertinent History Primary Care Physician: CARO - Allergy/Home Medications Allergies/Adverse Reactions: Allergies Allergy/AdvReac Type Severity Reaction Status Date / Time bee pollen Allergy Hives Verified 07/10/18 12:12 bee venom protein (honey bee) Allergy Hives Verified 07/10/18 12:12 lorazepam [From Ativan] Allergy See Comment Verified 07/09/18 11:16 sertraline Allergy Rash And Verified 07/09/18 11:16 Itching PMH/Surg Hx/FS Hx/Imm Hx Endocrine/Hematology History: Reports: Hx Diabetes - elevated glucose after acute liver failure - diet controlled Denies: Hx Anticoagulant Therapy, Hx Thyroid Disease, Hx Anemia, Hx Unexplained Bleeding Cardiovascular History: Reports: Hx Hypercholesterolemia, Hx Hypertension Denies: Hx Aneurysm, Hx Angina, Hx Angioplasty, Hx Auto Implanted Cardiovert Defib, Hx Cardiac Arrest, Hx Cardiomegaly, Hx Congenital Heart Disease, Hx Congestive Heart Failure, Hx Coronary Artery Disease, Hx Deep Vein Thrombosis, Hx Embolism, Hx Hypotension, Hx Pacemaker/ICD, Hx Peripheral Vascular Disease, Hx Rheumatic Fever, Hx Syncope, Hx Valvular Heart Disease, Other Cardiovascular Problems/Disorders Respiratory History: Reports: Hx Asthma, Hx Chronic Bronchitis, Hx Seasonal Allergies - hay fever Denies: Hx Chronic Obstructive Pulmonary Disease (COPD), Hx Cystic Fibrosis, Hx Lung Cancer, Hx Pleural Effusion, Hx Pneumonia, Hx Pulmonary Edema, Hx Pulmonary Embolism, Hx Sleep Apnea, Other Respiratory Problems/Disorders GI History: Reports: Hx Cirrhosis, Hx Gall Bladder Disease, Hx Hiatal Hernia, Hx Ulcer Denies: Hx Crohn's Disease, Hx Diverticulosis, Hx Gastroesophageal Reflux Disease, Hx Gastrointestinal Bleed, Hx Irritable Bowel, Hx Jaundice, Hx Obstructive Bowel, Hx Ileostomy, Hx Pyloric Stenosis, Other GI Disorders History: Denies: Hx Dialysis, Hx Renal Disease Musculoskeletal History: Reports: Hx Arthritis - both knees, Hx Orthopedic Injury Denies: Hx Back Problems, Hx Bursitis, Hx Congenital Bone Abnormalities, Hx Fibromyalgia, Hx Gout, Hx Osteoporosis, Hx Scoliosis, Hx Tendonitis, Other Musculoskeletal History Sensory History: Reports: Hx Contacts or Glasses Denies: Hx Cataracts, Hx Eye Injury, Hx Eye Prosthesis, Hx Glaucoma, Hx Legally Blind, Hx Macular Degeneration, Hx Vision Problem, Hx Deafness, Hx Hearing Aid, Hx Hearing Problem, Other Sensory Impairments Opthamlomology History: Reports: Hx Contacts or Glasses Denies: Hx Cataracts, Hx Eye Injury, Hx Eye Prosthesis, Hx Glaucoma, Hx Legally Blind, Hx Macular Degeneration, Hx Vision Problem, Other Sensory Impairments Neurological History: Reports: Hx Headaches, Hx Seizures, Other Neuro Impairments/Disorders - Subdural Hematoma Denies: Hx Dementia Psychiatric History: Reports: Hx Depression, Hx Substance Abuse - ETOH Denies: Hx Anxiety, Hx Attention Deficit Hyperactivity Disorder, Hx Eating Disorder, Hx Panic Disorder, Hx Post Traumatic Stress Disorder, Hx Inpatient Treatment, Hx Community Mental Health Tx, Hx Schizophrenia, Hx Bipolar Disorder , Hx Suicide Attempt, Hx of Violent Episodes Against Others, Other Psychiatric Issues/Disorders - Surgical History Surgery Procedure, Year, and Place: RIGHT ANKLE ORIF. LEFT KNEE TENDON REPAIR. CHOLECYSECTOMY. APPENDECTOMY. TONSILECTOMY Hx Anesthesia Reactions: No - Immunization History Immunizations Up to Date: Yes Infectious Disease History: No Infectious Disease History: Reports: Hx of Known/Suspected MRSA Denies: Hx Clostridium Difficile, Hx Hepatitis, Hx Human Immunodeficiency Virus (HIV), Hx Shingles, Hx Tuberculosis, History Other Infectious Disease, Traveled Outside the [place] in Last 30 Days - Family History Known Family History: Negative: Cardiac Disease, Diabetes - Social History Alcohol Use: LAST ETOH CONSUMPTION "5 WEEKS AGO" Alcohol Amount: 07/30/18 - states no use. Hx Substance Use: Yes Substance Use Type: Reports: None Substance Use Comment - Amount & Last Used: pt states he hasn't had a drink in 2 weeks Hx Tobacco Use: Yes Smoking Status (MU): Light Every Day Tobacco Smoker Type: Cigarettes Length of Time of Smoking/Using Tobacco: 5 years Have You Smoked in the Last Year: No Review of Systems Negative: Fever, Chills Negative: Shortness Of Breath Positive: Myalgia Neurological: Other - POS: confusion All Other Systems Reviewed And Are Negative: Yes Physical Exam - Summary Physical Exam Summary: VITAL SIGNS: Reviewed. GENERAL: Patient is a well-developed and nourished male who is lying comfortable in the stretcher. Patient is not in any acute respiratory distress. HEAD AND FACE: No signs of trauma. No ecchymosis, hematomas or skull depressions. No sinus tenderness. EYES: PERRLA, EOMI x 2, No injected conjunctiva, no nystagmus. EARS: Hearing grossly intact. Ear canals and tympanic membranes are within normal limits. MOUTH: Oropharynx within normal limits. NECK: Supple, trachea is midline, no adenopathy, no JVD, no carotid bruit, no c- spine tenderness, neck with full ROM. CHEST: Symmetric, no tenderness at palpation LUNGS: Clear to auscultation bilaterally. No wheezing or crackles. CVS: Regular rate and rhythm, S1 and S2 present, no murmurs or gallops appreciated. ABDOMEN: Soft, non-tender. Abdomen with ascites. No rebound, no guarding, and no masses palpated. Bowel sounds are decreased. Pt has a ventral hernia. EXTREMITIES: FROM in all major joints, no edema, no cyanosis or clubbing. NEURO: Alert and oriented x 3. No acute neurological deficits. Speech is normal and follows commands. SKIN: Dry and warm. Dry skin. Triage Information Reviewed: Yes Vital Signs On Initial Exam: Initial Vitals Temp Pulse Resp BP Pulse Ox 97.2 F 74 16 133/56 96 07/30/18 11:14 07/30/18 11:14 07/30/18 11:14 07/30/18 11:14 07/30/18 11:14 Vital Signs Reviewed: Yes Diagnostics - Vital Signs Vital Signs Temp Pulse Resp BP Pulse Ox 07/30/18 11:14 97.2 F 74 16 133/56 96 - Laboratory Result Diagrams: 07/31/18 06:32 07/31/18 06:32 Lab Statement: Any lab studies that have been ordered have been reviewed, and results considered in the medical decision making process. - Radiology Chest XR Xray Interpretation: No Acute Changes - IMPRESSION: 1. No evidence for acute intrathoracic disease. 2. Elevated lung volumes suggest obstructive lung disease. Dr. Wilson has reviewed this report. Radiology Interpretation Completed By: Radiologist - EKG 11:39 Cardiac Rate: NL - at 60 bpm EKG Rhythm: Sinus Rhythm EKG Interpretation: No ST elevations. EKG Comparison: No Significant Change - similar to prior EKG on 07/23/18. Course/Dx - Course Assessment/Plan: This pt is a 63 y/o male presenting to [facility] via EMS c/o confusion. Pt reports his confusion began yesterday. He additionally notes pain "all over." Denies SOB, fever, chills. Pt states "I think it's my ammonia level. " He does not take his lactulose as supposed to because he states it upsets his stomach. Pt has been admitted to the ED twice this month for hepatic encephalopathy and on his last admission on 07/23 pt had elevated ammonia levels. Blood test results shows a chronic anemia, platelets of 126, INR is 1.57, consistent with his chronic liver disease, sodium is 132, potassium 3.2, magnesium 1.7, total bili is 5.5, AST of 43 and an AST of 21. Ammonia level of 114. Chest x-ray impression shows no acute pathology. In the ED course the patient was given lactulose, potassium chloride and magnesium. I discussed my physical exam, findings and test results with Dr. Garcia from the hospitalist services and she agrees to admit patient to her services. Patient is hemodynamically stable. - Differential Dx Differential Diagnoses Neuro: Positive: Dysrhythmia, Seizure Disorder, Toxic Exposure, Transient Ischemic Attack, Viral Syndrome - Diagnoses Provider Diagnoses: Hepatic encephalopathy, Cirrhosis of liver - Physician Notifications Discussed Care Of Patient With: Blanca Garcia - hospitalist Time Discussed With Above Provider: 12:56 Instructed by Provider To: Admit As Inpatient Discharge - Sign-Out/Discharge Documenting (check all that apply): Patient Departure [place] [facility] [place] Plan Condition: Stable Disposition: ADMITTED TO [facility] - Billing Disposition and Condition Condition: STABLE Disposition: Admitted to [facility] - Attestation Statements Document Initiated by Scribe: Yes Documenting Scribe: Bhavna Velazquez Provider For Whom Scribe is Documenting (Include Credential): Carlos Wilson MD Scribe Attestation: I, Bhavna Velazquez, scribed for Carlos Wilson MD on 07/31/18 at 1810. Scribe Documentation Reviewed: Yes Provider Attestation: The documentation as recorded by the Bhavna segundo accurately reflects the service I personally performed and the decisions made by me, Carlos Wilson MD
[2018-07-30 11:56] LABS: ABS Basophils 0.1 10^3/ul (0-0.2); ABS Eosinophils 0.2 10^3/ul (0-0.6); ABS Lymphocytes 1.5 10^3/ul (1.0-4.8); ABS Monocytes 0.6 10^3/ul (0-0.8); ABS Neutrophils 1.4 10^3/ul (1.5-7.7); ABS Nucleated RBC 0 10^3/ul; Hematocrit 33 % (42-52); Hemoglobin 10.6 g/dl (14.0-18.0); Lymphocyte % 40.4 % (25-47); Mean Corpuscular HGB Conc 32 g/dl (31-36); Mean Corpuscular Hemoglobin 31 pg (27-31); Mean Corpuscular Volume 97 fL (80-94); Mean Platelet Volume 7.1 um3 (7.4-10.4); Nucleated Red Blood Cells % 0.1; Platelet Count 126 10^3/ul (150-450); Red Blood Count 3.45 10^6/ul (4.00-5.40); Red Cell Distribution Width 21 % (10.5-15); White Blood Count 3.7 10^3/ul (3.5-10.8)
[2018-07-30 12:05] LABS: EGFR Non-African American 77.8 (>60)
[2018-07-30 12:10] LABS: INR 1.57 (0.77-1.02)
--- NOTE | 2018-07-30 13:10 | RAD ---
INDICATION: Altered mental status. History of tobacco use. COMPARISON: July 10, 2018 CT abdomen. July 09, 2018 chest radiograph. TECHNIQUE: Sitting AP and lateral views of the chest were obtained. REPORT: Elevated lung volumes. Clear lungs and pleural spaces. Negative for pneumothorax. The heart, pulmonary vasculature, and mediastinal contours are unremarkable. Unremarkable osseous structures and soft tissue contours. IMPRESSION: #. No evidence for acute intrathoracic disease. #. Elevated lung volumes suggest obstructive lung disease.
[2018-07-30] MEDS ORDERED: Albuterol HFA INHALER* 8 gm MDI INH PRN (14:01)
[2018-07-30] MEDS ORDERED: hydrOXYzine HCL TAB* 25 MG PO PRN (14:01)
[2018-07-30] MEDS ORDERED: Thiamine IV 100 MG, Folic Acid IV* 1 MG, Multiple Vitamin IV ADULT* 10 ML in NS 0.9% 10... IV ONE (14:03)
[2018-07-30] MEDS ORDERED: Potassium Chlor TAB* 20 MEQ TAB.ER PO ONE (14:18)
[2018-07-30] MEDS ORDERED: Magnesium Sulfate 2 GM IV* 2 GM/50 ML BAG IVPB ONE (14:18)
[2018-07-30] MEDS: Acetaminophen TAB* 325 MG PO PRN (18:17)
--- NOTE | 2018-07-30 19:05 | HP ---
HISTORY AND PHYSICAL: DATE OF ADMISSION: 07/30/18 TIME OF EVALUATION: 2 p.m. CHIEF COMPLAINT: "I'm messed up." HISTORY OF PRESENT ILLNESS: Mr. Mata is a 63-year-old with a past medical history of cirrhosis secondary to alcohol abuse, subdural hematoma, hypertension , asthma, depression, seizures, who presents to the emergency room with complaints of increased confusion. This is his third admission this month. He was admitted from 07/09/18 to with hepatic encephalopathy secondary to noncompliance, returned again from 07/23/18 to 07/26/18 for the same reason and he states that after discharge 4 days ago he took lactulose only once due to "diarrhea-like a volcano." Although the patient is more lethargic than his baseline, he is able to tell me that he was taking his meds, but would not take the lactulose due to significant diarrhea and he understands that he is feeling poorly again because he did not take his medication. On the prior admission, we had talked about Palliative Care consultation and even Hospice evaluation since at that point he was not willing to quit drinking. The patient states that he thought about it and decided that "he wants to live." He is enrolled on the [facility] program, but is not interested in hospice at this time. He states that his last drink was 4 weeks ago prior to his first admission this month and that he is willing to continue his treatment. When I asked him where does he see himself 6 months from now, his answer was "alive." He denies abdominal pain, chest pain, shortness of breath, fever, chills, urinary complaints. He only has diarrhea when he takes his lactulose. PAST MEDICAL HISTORY: 1. Liver cirrhosis secondary to alcohol abuse. 2. Subdural hematoma. 3. Hypertension. 4. Asthma. 5. Depression. 6. Seizures. 7. Chronic draining umbilical hernia. PAST SURGICAL HISTORY: 1. Status post cholecystectomy. 2. Status post appendectomy. 3. Status post tonsillectomy. 4. Status post ankle ORIF. MEDICATION LIST: 1. Acetaminophen 650 mg p.o. q.4 hours p.r.n. pain or fever. 2. Albuterol HFA 2 puffs inhaled q.4 hours p.r.n. shortness of breath. 3. Vitamin B12 500 mcg p.o. daily. 4. EpiPen 0.3 mg intramuscular once as needed for anaphylaxis. 5. Escitalopram 10 mg p.o. daily. 6. Folic acid 1 mg p.o. daily. 7. Furosemide 40 mg p.o. daily. 8. Gabapentin 300 mg p.o. at bedtime. 9. Hydroxyzine 25 mg p.o. b.i.d. as needed for anxiety. 10. Lactulose 30 mL p.o. t.i.d. 11. Keppra 500 mg p.o. b.i.d. 12. Magnesium oxide 500 mg p.o. daily. 13. Omeprazole 20 mg p.o. daily. 14. Propranolol 10 mg p.o. daily. 15. Rifaximin 550 mg p.o. b.i.d. 16. Spironolactone 75 mg p.o. q.a.m. 17. Tamsulosin 0.4 mg p.o. at bedtime. 18. Nasacort nasal spray to both nares at bedtime. ALLERGIES: The patient had extreme sedation with LORAZEPAM, had rash and itching with SERTRALINE and hives with BEE STINGS. FAMILY HISTORY: Mother had a history of CVA. SOCIAL HISTORY: No history of tobacco or drug use. The patient states that his last drink was 4 weeks ago prior to his first admission this month. Surrogate decision maker is his sister, Cassandra Mata, phone number is [phone]. REVIEW OF SYSTEMS: A 14-point review of systems was performed and all the pertinent negative and positive findings are in the HPI. PHYSICAL EXAMINATION GENERAL: The patient is an obese male who appears older than stated age, lying in the ED stretcher, in no acute distress. VITAL SIGNS: Temperature 97.2, heart rate is 74, respiratory rate is 16, oxygen saturation 96% on room air, blood pressure is 133/56. HEENT: Pupils are equal. Moist mucous membranes. CHEST: Breath sounds bilaterally with no added sounds. CVS: Normal S1, S2. Regular rate and rhythm. ABDOMEN: Obese, soft, nontender. There is no fluid shift. Bowel sounds are present. EXTREMITIES: No edema. NEURO: He is alert and oriented x3. Able to move all 4 extremities. DIAGNOSTIC STUDIES/LAB DATA: The patient had a CBC that showed WBC of 3.7, hemoglobin of 10.6, hematocrit of 33, platelets of 106 with 38% neutrophils. INR is 1.5. Chemistry showed a sodium of 133, potassium of 3.2, chloride of 100 , bicarb of 26, BUN of 7, creatinine 0.98, glucose of 146, lactic acid 2.5, calcium of 8.5, magnesium of 1.7. LFTs showed a total bilirubin of 5.5 with AST of 43, ALT of 21, alk phos of 137. Ammonia of 114. CPK 120. Troponin is 0. TSH 2.87. Serum alcohol level was less than 10. Acetaminophen level was less than 15. Chest x-ray showed no evidence for acute intrathoracic disease, just elevated lung volumes that suggest obstructive lung disease. EKG done 07/30/18 at 11:39 a.m., showed sinus rhythm at 60 beats per minute. No ST- T changes. No significant change when compared to his prior EKG from , except that now his QTc interval is normal. ASSESSMENT AND PLAN: Mr. Mata is a 63-year-old male with a past medical history of liver cirrhosis secondary to alcohol abuse, subdural hematoma, hypertension, asthma, depression, seizures, multiple admissions for hepatic encephalopathy secondary to noncompliance, who presents to the emergency room with complaints of confusion, likely secondary to another episode of hepatic encephalopathy due to noncompliance to his lactulose. 1. Hepatic encephalopathy. Appears to be milder at this time as the patient sought medical attention sooner. He admits that he is noncompliant with lactulose and understands that his symptoms are secondary to not taking his medications. He states that the diarrhea is uncontrollable and he cannot do anything. He admits that since discharge 4 days ago, he took the medication only once. He will be admitted as an inpatient to the medical floor. We are going to try a lower dose lactulose and rifaximin to see if this is effective to control his hepatic encephalopathy. Although in the past, he had ideas about palliative care and hospice, he is very clear at this time that his plan is to continue treatment and that he plans to be alive 6 months from now. In the past, he was not willing to quit drinking and he states that now he is motivated and the last drink was more than 4 weeks ago. 2. Liver cirrhosis. So, his MELD score is 21 today and on his last discharge on 07/26/18, it was 18 and prior to that was 15. It continues to trend up, but he appears to be motivated to keep his sobriety now. So, if he is able to keep it for long enough, he may be able to follow up at a transplant center. For now , the patient will receive a banana bag. I am going to hold his diuretics for tonight, but plan to resume it tomorrow. We are going to continue his vitamins. We are also going to continue his propranolol for portal hypertension. 3. Subdural hematoma/seizures. We will continue Keppra. 4. DVT prophylaxis: The patient has a score of 3 on the DVT Prophylaxis Risk Assessment Guide and we are going to avoid pharmacological prophylaxis as he is at high risk of bleeding from his cirrhosis, portal hypertension and he also has a history of subdural hematoma, so he will have SCDs. 5. Code status is full. TIME SPENT: Approximately 50 minutes was spent with the patient's interview, medical records review, physical examination to complete this admission, more than half of this time was spent [id number] with the patient and coordination of care. [id number]/[facility] #: [id number] MARILUZ
[2018-07-30] MEDS: RiFAXimin* 550 MG TAB PO SCH (22:26)
[2018-07-30] MEDS: Gabapentin CAP(*) 300 MG PO SCH (22:26)
[2018-07-30] MEDS: Tamsulosin CAP* 0.4 MG PO SCH (22:26)
[2018-07-30] MEDS: levETIRAcetam TAB* 500 MG PO SCH (22:26)
[2018-07-31 06:47] LABS: ABS Neutrophils 1.2 10^3/ul (1.5-7.7); Hematocrit 26 % (42-52); Hemoglobin 8.4 g/dl (14.0-18.0); Mean Corpuscular HGB Conc 33 g/dl (31-36); Mean Corpuscular Hemoglobin 31 pg (27-31); Mean Corpuscular Volume 95 fL (80-94); Red Blood Count 2.69 10^6/ul (4.00-5.40); Red Cell Distribution Width 20 % (10.5-15); White Blood Count 3.1 10^3/ul (3.5-10.8)
[2018-07-31 06:58] LABS: EGFR Non-African American 90.4 (>60)
[2018-07-31 07:33] LABS: ABS Basophils 0 10^3/ul (0-0.2); ABS Eosinophils 0.1 10^3/ul (0-0.6); ABS Lymphocytes 1.2 10^3/ul (1.0-4.8); ABS Monocytes 0.5 10^3/ul (0-0.8); ABS Nucleated RBC 0 10^3/ul; Eosinophil % 4.4 % (0-6); Lymphocyte % 39.8 % (25-47); Mean Platelet Volume 6.5 um3 (7.4-10.4); Nucleated Red Blood Cells % 0.2; Platelet Count 77 10^3/ul (150-450)
[2018-07-31] MEDS: Citalopram TAB* 20 MG PO SCH (09:40)
[2018-07-31] MEDS: Omeprazole CAP* 20 MG PO SCH (09:40)
[2018-07-31] MEDS: Folic Acid TAB* 1 MG PO SCH (09:40)
[2018-07-31] MEDS: Propranolol TAB* 10 MG PO SCH (09:40)
[2018-07-31] MEDS: Cyanocobalamin TAB* 500 MCG PO SCH (09:41)
[2018-07-31] MEDS: Acetaminophen TAB* 325 MG PO PRN (09:41)
[2018-07-31] MEDS: levETIRAcetam TAB* 500 MG PO SCH ×2 (09:41→20:34)
[2018-07-31] MEDS: Lactulose* 15 ML UDC PO SCH ×2 (09:42→20:34)
[2018-07-31] MEDS: RiFAXimin* 550 MG TAB PO SCH ×2 (10:30→20:34)
--- NOTE | 2018-07-31 14:04 | PN ---
Subjective Date of Service: 07/31/18 Interval History: HOSPITALIST PROGRESS NOTE Patient seen and examined at bedside. Care reviewed and d/w Larisa Tran RN. He feels much better today, in good spirits. Appetite is good, tolerating diet well. Feels he is losing muscle mass and becoming weaker. Family History: Unchanged from Admission Social History: Unchanged from Admission Past Medical History: Unchanged from Admission Objective Active Medications: Acetaminophen (Tylenol Tab*) 650 mg PO Q8H PRN PRN Reason: PAIN Last Admin: 07/31/18 09:41 Dose: 650 mg Albuterol (Ventolin Hfa Inhaler*) 2 puff INH Q4H PRN PRN Reason: SHORTNESS OF BREATH Citalopram Hydrobromide (Celexa Tab*) 20 mg PO DAILY [facility] Last Admin: 07/31/18 09:40 Dose: 20 mg Cyanocobalamin (Vitamin B12 Tab*) 500 mcg PO DAILY [facility] Last Admin: 07/31/18 09:41 Dose: 500 mcg Folic Acid (Folvite Tab*) 1 mg PO DAILY [facility] Last Admin: 07/31/18 09:40 Dose: 1 mg Gabapentin (Neurontin Cap(*)) 300 mg PO BEDTIME [facility] Last Admin: 07/30/18 22:26 Dose: 300 mg Hydroxyzine HCl (Atarax Tab*) 25 mg PO BID PRN PRN Reason: ANXIETY Lactulose (Lactulose*) 15 ml PO BID [facility] Last Admin: 07/31/18 09:42 Dose: 15 ml Levetiracetam (Keppra Tab*) 500 mg PO BID [facility] Last Admin: 07/31/18 09:41 Dose: 500 mg Omeprazole (Prilosec Cap*) 20 mg PO DAILY [facility] Last Admin: 07/31/18 09:40 Dose: 20 mg Propranolol HCl (Inderal Tab*) 10 mg PO DAILY [facility] Last Admin: 07/31/18 09:40 Dose: 10 mg Rifaximin (Xifaxan*) 550 mg PO BID [facility] Last Admin: 07/31/18 10:30 Dose: 550 mg Tamsulosin HCl (Flomax Cap*) 0.4 mg PO BEDTIME [facility] Last Admin: 07/30/18 22:26 Dose: 0.4 mg Vital Signs - 8 hr 07/31/18 07/31/18 07/31/18 06:57 07:26 12:38 Temperature 97.8 F 98.2 F Pulse Rate 72 80 Respiratory 18 16 16 Rate Blood Pressure 113/53 110/53 (mmHg) O2 Sat by Pulse 95 95 Oximetry Oxygen Devices in Use Now: None Appearance: Pleasant gentleman sitting up in bed in NAD. Eyes: No Scleral Icterus Ears/Nose/Mouth/Throat: Mucous Membranes Moist Neck: Trachea Midline Respiratory: Symmetrical Chest Expansion and Respiratory Effort, Clear to Auscultation Cardiovascular: RRR - Normal S1 and S2 Abdominal: NL Sounds; No Tenderness; No Distention - obese, no fluid shift Extremities: No Edema Neurological: Alert and Oriented x 3, NL Muscle Strength and Tone Result Diagrams: 07/31/18 06:32 07/31/18 06:32 Assess/Plan/Problems-Billing Assessment: Mr Mata is a 63yo M with PMH of liver cirrhosis secondary to ETOH, multiple episodes of hepatic encephalopathy secondary to non compliance, SDH, HTN, asthma , depression, seizure disorder, who presented to ED with weakness and mild confusion, found to have another episode of hepatic encephalopathy. - Patient Problems (1) Hepatic encephalopathy Comment: - Secondary to non compliance. - Lengthy conversation with patient re: importance of compliance. We are going to try a lower dose/less frequent dose of Lactulose to see if we can lower his ammonia without causing significant diarrhea. - Continue Rifaximin. - Ammonia down to 109 - continue to monitor. (2) Liver cirrhosis Comment: - Lengthy conversation with the patient about his diagnosis and prognosis. He's motivated to quit drinking as his last drink was >4 weeks ago. Not interested in Hospice at this time as he plans to "continue to live". - Will continue Furosemide, Aldactone, and propranolol. (3) Seizures Comment: - Stable - Continue Keppra (4) DVT prophylaxis Comment: - SCDs (5) Physical deconditioning Comment: - PT (6) Full code status Comment: Status and Disposition: Inpatient.
[2018-07-31 17:42] LABS: Urine Appearance Clear; Urine Blood Negative (Negative); Urine Color Amber; Urine Ketones Trace (Negative); Urine Protein 1+(30 mg/dL) (Negative); Urine Red Blood Cell Trace(0-2/hpf) (Absent); Urine Specific Gravity 1.024 (1.010-1.030); Urine Urobilinogen Positive (Negative); Urine White Blood Cell Trace(0-5/hpf) (Absent)
[2018-07-31] MEDS: Tamsulosin CAP* 0.4 MG PO SCH (20:34)
[2018-07-31] MEDS: Gabapentin CAP(*) 300 MG PO SCH (20:34)
[2018-08-01 07:18] LABS: EGFR Non-African American 105.9 (>60)
[2018-08-01] MEDS: Lactulose* 15 ML UDC PO SCH ×4 (10:35→21:06)
[2018-08-01] MEDS: levETIRAcetam TAB* 500 MG PO SCH ×2 (10:36→21:06)
[2018-08-01] MEDS: Omeprazole CAP* 20 MG PO SCH (10:36)
[2018-08-01] MEDS: Folic Acid TAB* 1 MG PO SCH (10:36)
[2018-08-01] MEDS: Cyanocobalamin TAB* 500 MCG PO SCH (10:36)
[2018-08-01] MEDS: RiFAXimin* 550 MG TAB PO SCH ×2 (10:36→21:05)
[2018-08-01] MEDS: Propranolol TAB* 10 MG PO SCH (10:36)
[2018-08-01] MEDS: Citalopram TAB* 20 MG PO SCH (10:36)
[2018-08-01] MEDS: Acetaminophen TAB* 325 MG PO PRN ×2 (11:42→23:32)
--- NOTE | 2018-08-01 15:27 | PN ---
Subjective Date of Service: 08/01/18 Interval History: Pt seen and examined. Meds and labs reviewed. CC: N/A ROS: Denied WILSON/dizziness, F/C, N/V, CP, SOB, increased cough, sputum production , abd pain, diarrhea, constipation, dysuria, myalgias, arthralgias, throat pain , and new skin lesions. The rest of the 14 point ROS are unremarkable. PHYSICAL EXAM: GEN APPEARANCE: Awake, not in acute distress, confused HEENT: NC/AT, PERRLA, moist oral mucosa, (-) throat erythema NECK: Soft, supple, (-) cervical LAD, (-)JVD HEART: S1S2 WNL, RRR, No MRG CHEST: CTA, BL, GAE, No W/R/R ABD: Soft, ND/NT, NABS 4x Q EXT: No C/C/E SKIN: Warm to touch NEURO: (+)Asterexis PSYCH: No active psychosis, hallucinations, depression, SI/HI Family History: Unchanged from Admission Social History: Unchanged from Admission Past Medical History: Unchanged from Admission Objective Active Medications: Acetaminophen (Tylenol Tab*) 650 mg PO Q8H PRN PRN Reason: PAIN Last Admin: 08/01/18 11:42 Dose: 650 mg Albuterol (Ventolin Hfa Inhaler*) 2 puff INH Q4H PRN PRN Reason: SHORTNESS OF BREATH Citalopram Hydrobromide (Celexa Tab*) 20 mg PO DAILY [facility] Last Admin: 08/01/18 10:36 Dose: 20 mg Cyanocobalamin (Vitamin B12 Tab*) 500 mcg PO DAILY [facility] Last Admin: 08/01/18 10:36 Dose: 500 mcg Folic Acid (Folvite Tab*) 1 mg PO DAILY [facility] Last Admin: 08/01/18 10:36 Dose: 1 mg Gabapentin (Neurontin Cap(*)) 300 mg PO BEDTIME [facility] Last Admin: 07/31/18 20:34 Dose: 300 mg Hydroxyzine HCl (Atarax Tab*) 25 mg PO BID PRN PRN Reason: ANXIETY Lactulose (Lactulose*) 30 ml PO QID [facility] Last Admin: 08/01/18 14:24 Dose: 30 ml Levetiracetam (Keppra Tab*) 500 mg PO BID [facility] Last Admin: 08/01/18 10:36 Dose: 500 mg Omeprazole (Prilosec Cap*) 20 mg PO DAILY [facility] Last Admin: 08/01/18 10:36 Dose: 20 mg Propranolol HCl (Inderal Tab*) 10 mg PO DAILY [facility] Last Admin: 08/01/18 10:36 Dose: 10 mg Rifaximin (Xifaxan*) 550 mg PO BID [facility] Last Admin: 08/01/18 10:36 Dose: 550 mg Tamsulosin HCl (Flomax Cap*) 0.4 mg PO BEDTIME [facility] Last Admin: 07/31/18 20:34 Dose: 0.4 mg Vital Signs - 8 hr 08/01/18 08/01/18 08/01/18 07:31 11:05 14:46 Temperature 98.0 F 98.4 F 97.5 F Pulse Rate 75 93 82 Respiratory 16 18 18 Rate Blood Pressure 130/54 130/64 109/52 (mmHg) O2 Sat by Pulse 97 97 97 Oximetry Oxygen Devices in Use Now: None Result Diagrams: 07/31/18 06:32 08/01/18 06:50 Microbiology and Other Data: Microbiology 07/30/18 12:32 Aerobic Blood Culture - Preliminary Blood Venous No Growth Day 2 07/30/18 11:39 Aerobic Blood Culture - Preliminary Blood Venous No Growth Day 2 Anaerobic Blood Culture - Preliminary No Growth Day 2 07/30/18 14:19 Nasal Screen MRSA (PCR) - Final Nasal Mrsa Not Detected Assess/Plan/Problems-Billing Assessment: Mr Mata is a 63yo M with PMH of liver cirrhosis secondary to ETOH, multiple episodes of hepatic encephalopathy secondary to non compliance, SDH, HTN, asthma , depression, seizure disorder, who presented to ED with weakness and mild confusion, found to have another episode of hepatic encephalopathy. - Patient Problems (1) Hepatic encephalopathy Current Visit: Yes Status: Acute Code(s): K72.90 - HEPATIC FAILURE, UNSPECIFIED WITHOUT COMA SNOMED Code(s): 80018523 Comment: - Secondary to non compliance. - Will increase lactulose and will decrease dose on possible D/C in 1-2 days - Continue Rifaximin. - Ammonia down to 109 - continue to monitor. (2) Liver cirrhosis Current Visit: Yes Status: Acute Comment: - Will continue Furosemide, Aldactone, and propranolol. -Will recalculated MELD score in AM (3) Seizures Current Visit: Yes Status: Chronic Priority: Medium Code(s): R56.9 - UNSPECIFIED CONVULSIONS SNOMED Code(s): 97483759 Comment: - Stable - Continue Keppra (4) DVT prophylaxis Current Visit: Yes Status: Acute Priority: Medium Onset Date: 11/02/14 Code(s): PGX5863 - SNOMED Code(s): 689317182 Comment: - SCDs Status and Disposition: -Continue PT and will await any further recommendation for any needs -D/W Social workers for possible [facility] placement -Possible D/C in 1-2 days
--- NOTE | 2018-08-01 17:28 | RAD ---
INDICATION: Right lower extremity edema. COMPARISON: Correlation is made with a prior study from May 03, 2016. TECHNIQUE: Multiple real-time, color flow and Doppler tracings of the right lower extremity were obtained. FINDINGS: The common femoral, femoral, profunda femoral and popliteal veins all demonstrate normal compressibility, augmentation with compression and phasic response with respiration. The posterior tibial and peroneal veins demonstrate normal compressibility and augmentation with compression. IMPRESSION: NO EVIDENCE FOR DEEP VENOUS THROMBOSIS.
[2018-08-01] MEDS: Gabapentin CAP(*) 300 MG PO SCH (21:05)
[2018-08-01] MEDS: Tamsulosin CAP* 0.4 MG PO SCH (21:06)
[2018-08-02 07:36] LABS: INR 1.87 (0.77-1.02)
[2018-08-02 08:03] LABS: EGFR Non-African American 109.2 (>60)
[2018-08-02] MEDS ORDERED: Magnesium Sulf 4 GM/100 ML IV* 4,000 MG/100 ML BAG IVPB ONE (09:11)
[2018-08-02 09:38] LABS: Hematocrit 25 % (42-52); Hemoglobin 8.2 g/dl (14.0-18.0); Mean Corpuscular HGB Conc 33 g/dl (31-36); Mean Corpuscular Hemoglobin 31 pg (27-31); Mean Corpuscular Volume 95 fL (80-94); Mean Platelet Volume 7.1 um3 (7.4-10.4); Platelet Count 70 10^3/ul (150-450); Red Blood Count 2.63 10^6/ul (4.00-5.40); Red Cell Distribution Width 20 % (10.5-15); White Blood Count 2.5 10^3/ul (3.5-10.8)
[2018-08-02] MEDS: RiFAXimin* 550 MG TAB PO SCH ×2 (10:20→20:26)
[2018-08-02] MEDS: Lactulose* 15 ML UDC PO SCH ×4 (10:20→20:26)
[2018-08-02] MEDS: Folic Acid TAB* 1 MG PO SCH (10:21)
[2018-08-02] MEDS: Omeprazole CAP* 20 MG PO SCH (10:21)
[2018-08-02] MEDS: Citalopram TAB* 20 MG PO SCH (10:21)
[2018-08-02] MEDS: Cyanocobalamin TAB* 500 MCG PO SCH (10:22)
[2018-08-02] MEDS: Propranolol TAB* 10 MG PO SCH (10:22)
[2018-08-02] MEDS: levETIRAcetam TAB* 500 MG PO SCH ×2 (10:22→20:26)
[2018-08-02] MEDS: Acetaminophen TAB* 325 MG PO PRN (14:28)
--- NOTE | 2018-08-02 15:49 | PN ---
Subjective Date of Service: 08/02/18 Interval History: Pls see dictated D/C summary; D/C will be held given pt will need to be placed to [facility]; Sister is out of town. Family History: Unchanged from Admission Social History: Unchanged from Admission Past Medical History: Unchanged from Admission Objective Active Medications: Acetaminophen (Tylenol Tab*) 650 mg PO Q8H PRN PRN Reason: PAIN Last Admin: 08/02/18 14:28 Dose: 650 mg Albuterol (Ventolin Hfa Inhaler*) 2 puff INH Q4H PRN PRN Reason: SHORTNESS OF BREATH Citalopram Hydrobromide (Celexa Tab*) 20 mg PO DAILY [facility] Last Admin: 08/02/18 10:21 Dose: 20 mg Cyanocobalamin (Vitamin B12 Tab*) 500 mcg PO DAILY [facility] Last Admin: 08/02/18 10:22 Dose: 500 mcg Folic Acid (Folvite Tab*) 1 mg PO DAILY [facility] Last Admin: 08/02/18 10:21 Dose: 1 mg Gabapentin (Neurontin Cap(*)) 300 mg PO BEDTIME [facility] Last Admin: 08/01/18 21:05 Dose: 300 mg Hydroxyzine HCl (Atarax Tab*) 25 mg PO BID PRN PRN Reason: ANXIETY Lactulose (Lactulose*) 30 ml PO QID [facility] Last Admin: 08/02/18 13:28 Dose: 30 ml Levetiracetam (Keppra Tab*) 500 mg PO BID [facility] Last Admin: 08/02/18 10:22 Dose: 500 mg Omeprazole (Prilosec Cap*) 20 mg PO DAILY [facility] Last Admin: 08/02/18 10:21 Dose: 20 mg Propranolol HCl (Inderal Tab*) 10 mg PO DAILY [facility] Last Admin: 08/02/18 10:22 Dose: 10 mg Rifaximin (Xifaxan*) 550 mg PO BID [facility] Last Admin: 08/02/18 10:20 Dose: 550 mg Tamsulosin HCl (Flomax Cap*) 0.4 mg PO BEDTIME [facility] Last Admin: 08/01/18 21:06 Dose: 0.4 mg Oxygen Devices in Use Now: None Result Diagrams: 08/02/18 08:36 08/02/18 07:02 Microbiology and Other Data: Microbiology 07/30/18 12:32 Aerobic Blood Culture - Preliminary Blood Venous No Growth Day 2 07/30/18 11:39 Aerobic Blood Culture - Preliminary Blood Venous No Growth Day 2 Anaerobic Blood Culture - Preliminary No Growth Day 2 07/30/18 14:19 Nasal Screen MRSA (PCR) - Final Nasal Mrsa Not Detected Assess/Plan/Problems-Billing Assessment: Mr Mata is a 63yo M with PMH of liver cirrhosis secondary to ETOH, multiple episodes of hepatic encephalopathy secondary to non compliance, SDH, HTN, asthma , depression, seizure disorder, who presented to ED with weakness and mild confusion, found to have another episode of hepatic encephalopathy. - Patient Problems (1) Hepatic encephalopathy Current Visit: Yes Status: Acute Code(s): K72.90 - HEPATIC FAILURE, UNSPECIFIED WITHOUT COMA SNOMED Code(s): 26271451 Comment: - Secondary to non compliance. - Will increase lactulose and will decrease dose on possible D/C in 1-2 days - Continue Rifaximin. - Ammonia down to 109 - continue to monitor. (2) Liver cirrhosis Current Visit: Yes Status: Acute Comment: - Will continue Furosemide, Aldactone, and propranolol. -Will recalculated MELD score in AM (3) Seizures Current Visit: Yes Status: Chronic Priority: Medium Code(s): R56.9 - UNSPECIFIED CONVULSIONS SNOMED Code(s): 86866965 Comment: - Stable - Continue Keppra (4) DVT prophylaxis Current Visit: Yes Status: Acute Priority: Medium Onset Date: 11/02/14 Code(s): [id number] - SNOMED Code(s): 403393252 Comment: - SCDs Status and Disposition: -Continue PT and will await any further recommendation for any needs -D/W Social workers for possible [facility] placement -Possible D/C in 1-2 days
[2018-08-02] MEDS: Gabapentin CAP(*) 300 MG PO SCH (20:26)
[2018-08-02] MEDS: Tamsulosin CAP* 0.4 MG PO SCH (20:26)
--- NOTE | 2018-08-03 05:56 | DS ---
CC: Dr. Walden: Dr. Carlos Wilson; Dr. Rosie Noriega DISCHARGE SUMMARY: DATE OF ADMISSION: DATE OF DISCHARGE: DISCHARGE DIAGNOSES: Are as follows: 1. 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 2. Alcoholic liver cirrhosis, MELD score of 19. 3. Seizure disorder, history of. DISCHARGE MEDICATIONS: Are as follows: 1. Tylenol 650 mg p.o. q.8 p.r.n. The patient had been advised not to exceed more than 2 g per day of Tylenol given his cirrhosis. 2. Albuterol 2 puffs inhalation q.4 p.r.n. 3. Cyanocobalamin 500 mcg p.o. daily. 4. Escitalopram 10 mg p.o. daily. 5. Folic acid 1 mg p.o. daily. 6. Gabapentin 300 mg p.o. q.h.s. 7. Hydroxyzine 25 mg p.o. b.i.d. 8. Lactulose 30 mL p.o. daily. The patient had been advised if he or someone he trusts notices that he is more confused than usual, then he needs to take an extra dose until he defecates more than his usual. He has been advised that he needs to have a large bowel movement every day with 30 mL of lactulose daily. 9. Keppra 500 mg p.o. b.i.d. 10. Omeprazole 20 mg p.o. daily. 11. Propranolol 10 mg p.o. daily. 12. Xifaxan 550 mg p.o. b.i.d. 13. Tamsulosin 0.4 mg p.o. q.h.s. 14. Epinephrine 0.3 mg IM p.r.n. 15. Lasix 40 mg p.o. daily. 16. Magnesium oxide 500 mg p.o. daily. 17. Spironolactone 75 mg p.o. q.a.m. 18. Triamcinolone nasal spray 1 spray or a puff to both nares q.h.s. HISTORY OF PRESENT ILLNESS/HOSPITAL COURSE: The patient is a 63-year-old gentleman with history of alcoholic cirrhosis, subdural hematoma and hypertension, who has had multiple admissions just this month alone has been admitted for the 3rd time due to recurrent hepatic encephalopathy due to medical noncompliance. He mentions that the reason why he does not want to take his lactulose is he does not want to be in the bathroom all day. However, with the previous dosing of lactulose, his recorded bowel movements are only once per day. It is possible that there has been some mischarting involved and hence, his lactulose, to improve his compliance, was decreased to once a day prior to his discharge. He was given lactulose aggressively during his admission today and as mentioned, we will deescalate therapy to once a day with a caveat if he or anyone that he trusts feels and/or notices that he is more confused or disoriented than usual that despite having some bowel movements, he needs to take an extra dose of lactulose to further increase his bowel movements and his goal of therapy at this point is to have at least 1 large bowel movement per day, at least with 30 mL of lactulose and if he is not able to defecate despite taking the medication, he has been advised to take another dose of lactulose prior to his discharge. He mentions that he understands the above and will comply and hence, we will defer. He had been advised to follow up and/or call his PCP within 3 days post discharge. He was advised to take his lactulose every day and this has been clarified that this has been decreased to once daily to improve his compliance and he will need to have at least 1 large bowel movement per day as previously discussed. If someone whom he knows and the patient himself notices that he gets more confused than usual, he is to take an additional dose of lactulose so that he can defecate more frequently. Once the acute issue has passed, he has been advised to go back down to once a day daily dosing to once again further improve compliance. If his symptoms resume or develop new ones or feel unwell for any reason, he was advised to call his PCP and if his PCP cannot entertain him due to scheduling issues alone, to call [facility] if his issue is considered nonemergent. He was advised to call my office regarding any questions, concerns, or further clarifications regarding his discharge plans and /or prescriptions and to take his medications as prescribed. REVIEW OF SYSTEMS: The patient denied any recent headaches, dizziness, fevers, chills, nausea, vomiting, chest pain, shortness of breath, increased cough and/ or sputum production, abdominal pain, diarrhea, constipation, pain and/or increased frequency on urination, myalgias, arthralgias, throat pain, or new skin lesions. The rest of the 14-point review of systems are otherwise unremarkable. PHYSICAL EXAMINATION: Shows the most recent vital signs of records with blood pressure of 125/59, 97.8 degrees Fahrenheit, 74 beats per minute heart rate, 16 per minute respiratory rate, saturating at 97% on room air. General Appearance : The patient is awake, alert, and oriented x3, not in acute distress. HEENT: Normocephalic, atraumatic. PERRLA. Extraocular muscles intact. Negative for icterus. Moist oral mucosa. Negative throat erythema. Neck is soft, supple with no cervical lymphadenopathy. No JVD. Heart: S1, S2 within normal limits. Regular rate and rhythm. No murmurs, rubs, and gallops. Chest: Clear to auscultation bilaterally. Good air entry. No wheezes, rales, or rhonchi. Abdomen is soft. Slightly distended with umbilical hernia, which is reducible. Normoactive bowel sounds x4 quadrants. Extremities: No cyanosis, clubbing with 1+ bilateral lower edema. Psychiatric: No active psychosis, depression, suicidal or homicidal ideations. Neurologic: Negative for asterixis. TIME SPENT: The total time spent evaluating the patient, reviewing pertinent data, and appropriate documentation is 60 minutes. ADDENDUM: Given sister is out of town and pt was weak per last PT eval, will try to place pt on [facility] by Sunday. [id number]/[facility] #: [id number] MTDD
[2018-08-03 09:38] LABS: ABS Basophils 0 10^3/ul (0-0.2); ABS Eosinophils 0.2 10^3/ul (0-0.6); ABS Lymphocytes 0.9 10^3/ul (1.0-4.8); ABS Monocytes 0.4 10^3/ul (0-0.8); ABS Neutrophils 1.2 10^3/ul (1.5-7.7); ABS Nucleated RBC 0 10^3/ul; Eosinophil % 6.4 % (0-6); Hematocrit 27 % (42-52); Hemoglobin 8.7 g/dl (14.0-18.0); INR 1.81 (0.77-1.02); Lymphocyte % 34.5 % (25-47); Mean Corpuscular HGB Conc 32 g/dl (31-36); Mean Corpuscular Hemoglobin 31 pg (27-31); Mean Corpuscular Volume 96 fL (80-94); Mean Platelet Volume 7.2 um3 (7.4-10.4); Nucleated Red Blood Cells % 0.2; Platelet Count 75 10^3/ul (150-450); Red Blood Count 2.84 10^6/ul (4.00-5.40); Red Cell Distribution Width 20 % (10.5-15); White Blood Count 2.7 10^3/ul (3.5-10.8)
[2018-08-03 09:41] LABS: EGFR Non-African American 105.9 (>60)
[2018-08-03] MEDS: levETIRAcetam TAB* 500 MG PO SCH ×2 (10:44→20:32)
[2018-08-03] MEDS: RiFAXimin* 550 MG TAB PO SCH ×2 (10:44→20:32)
[2018-08-03] MEDS: Cyanocobalamin TAB* 500 MCG PO SCH (10:44)
[2018-08-03] MEDS: Lactulose* 15 ML UDC PO SCH ×3 (10:44→16:40)
[2018-08-03] MEDS: Citalopram TAB* 20 MG PO SCH (10:44)
[2018-08-03] MEDS: Folic Acid TAB* 1 MG PO SCH (10:44)
[2018-08-03] MEDS: Propranolol TAB* 10 MG PO SCH (10:44)
[2018-08-03] MEDS: Omeprazole CAP* 20 MG PO SCH (10:44)
[2018-08-03] MEDS: Acetaminophen TAB* 325 MG PO PRN (10:52)
--- NOTE | 2018-08-03 15:21 | PN ---
Subjective Date of Service: 08/03/18 Interval History: Pt seen and examined. Meds and labs reviewed. CC: Weakness and minor gait instability ROS: Denied WILSON/dizziness, F/C, N/V, CP, SOB, increased cough, sputum production , abd pain, diarrhea, constipation, dysuria, myalgias, arthralgias, throat pain , and new skin lesions. The rest of the 14 point ROS are unremarkable. PHYSICAL EXAM: GEN APPEARANCE: Awake, not in acute distress, Ox3 HEENT: NC/AT, PERRLA, moist oral mucosa, (-) throat erythema NECK: Soft, supple, (-) cervical LAD, (-)JVD HEART: S1S2 WNL, RRR, No MRG CHEST: CTA, BL, GAE, No W/R/R ABD: Soft, (+)Abd distention, dull to percussion/NT, NABS 4x Q EXT: No C/C/E SKIN: Warm to touch NEURO: (-)Asterexis PSYCH: No active psychosis, hallucinations, depression, SI/HI Family History: Unchanged from Admission Social History: Unchanged from Admission Past Medical History: Unchanged from Admission Objective Active Medications: Acetaminophen (Tylenol Tab*) 650 mg PO Q8H PRN PRN Reason: PAIN Last Admin: 08/03/18 10:52 Dose: 650 mg Albuterol (Ventolin Hfa Inhaler*) 2 puff INH Q4H PRN PRN Reason: SHORTNESS OF BREATH Citalopram Hydrobromide (Celexa Tab*) 20 mg PO DAILY [facility] Last Admin: 08/03/18 10:44 Dose: 20 mg Cyanocobalamin (Vitamin B12 Tab*) 500 mcg PO DAILY [facility] Last Admin: 08/03/18 10:44 Dose: 500 mcg Folic Acid (Folvite Tab*) 1 mg PO DAILY [facility] Last Admin: 08/03/18 10:44 Dose: 1 mg Gabapentin (Neurontin Cap(*)) 300 mg PO BEDTIME [facility] Last Admin: 08/02/18 20:26 Dose: 300 mg Hydroxyzine HCl (Atarax Tab*) 25 mg PO BID PRN PRN Reason: ANXIETY Lactulose (Lactulose*) 30 ml PO QID [facility] Last Admin: 08/03/18 14:05 Dose: 30 ml Levetiracetam (Keppra Tab*) 500 mg PO BID [facility] Last Admin: 08/03/18 10:44 Dose: 500 mg Omeprazole (Prilosec Cap*) 20 mg PO DAILY [facility] Last Admin: 08/03/18 10:44 Dose: 20 mg Propranolol HCl (Inderal Tab*) 10 mg PO DAILY [facility] Last Admin: 08/03/18 10:44 Dose: 10 mg Rifaximin (Xifaxan*) 550 mg PO BID [facility] Last Admin: 08/03/18 10:44 Dose: 550 mg Spironolactone (Aldactone Tab*) 100 mg PO DAILY [facility] Tamsulosin HCl (Flomax Cap*) 0.4 mg PO BEDTIME [facility] Last Admin: 08/02/18 20:26 Dose: 0.4 mg Vital Signs - 8 hr 08/03/18 07:57 Temperature 98.3 F Pulse Rate 92 Respiratory 16 Rate Blood Pressure 132/71 (mmHg) O2 Sat by Pulse 95 Oximetry Oxygen Devices in Use Now: None Result Diagrams: 08/03/18 09:16 08/03/18 09:16 Microbiology and Other Data: Microbiology 07/30/18 12:32 Aerobic Blood Culture - Preliminary Blood Venous No Growth Day 2 07/30/18 11:39 Aerobic Blood Culture - Preliminary Blood Venous No Growth Day 2 Anaerobic Blood Culture - Preliminary No Growth Day 2 07/30/18 14:19 Nasal Screen MRSA (PCR) - Final Nasal Mrsa Not Detected Assess/Plan/Problems-Billing Assessment: Mr Mata is a 63yo M with PMH of liver cirrhosis secondary to ETOH, multiple episodes of hepatic encephalopathy secondary to non compliance, SDH, HTN, asthma , depression, seizure disorder, who presented to ED with weakness and mild confusion, found to have another episode of hepatic encephalopathy. - Patient Problems (1) Hepatic encephalopathy Current Visit: Yes Status: Acute Code(s): K72.90 - HEPATIC FAILURE, UNSPECIFIED WITHOUT COMA SNOMED Code(s): 91420226 Comment: - Secondary to non compliance. - Continue lactulose and will decrease dose on possible D/C on Sunday - Continue Rifaximin. - Ammonia down to 88as previously discussed with pts sister, a mildly elevated ammonia level is not routinely done when pt is no longer confused in absence of asterexis due to the many factors that can affect it, e.g., muscle wasting, fist clenching, use of a tourniquet, and whether the sample was placed on ice. Furthermore, it is usually inconsistently elevated in pts with cirrhosis and may even be normal in pts with obvious hepatic encephalopathy. Left a message yesterday that ammonia levels especially if less than 2x the ULN can vary slightly up or down without any correlation with hepatic encephalopathy (2) Liver cirrhosis Current Visit: Yes Status: Acute Comment: -His abdomen seems to be more protuberant and dull to percussion likely due to worsening ascites and has been off his Spirinolactone---will add Spirinolactone and increase to 100 mg from 75 mg at home -Consider adding lasix in AM if BP tolerates -Will obtain abd U/S to further evaluate level of ascites -MELD = 18 (3) Seizures Current Visit: Yes Status: Chronic Priority: Medium Code(s): R56.9 - UNSPECIFIED CONVULSIONS SNOMED Code(s): 65023412 Comment: - Stable - Continue Keppra (4) DVT prophylaxis Current Visit: Yes Status: Acute Priority: Medium Onset Date: 11/02/14 Code(s): [id number] - SNOMED Code(s): 879832960 Comment: - SCDs Status and Disposition: -Continue PT and will await any further recommendation for any needs -D/W Social workers for possible JOHN placement -Possible D/C on Sunday
--- NOTE | 2018-08-03 16:21 | RAD ---
INDICATION: Ascites. COMPARISON: Comparison is made with a prior ultrasound of the abdomen from July 04, 2018. TECHNIQUE: Images in the right and left upper and lower quadrants were obtained. FINDINGS: There appears to be a moderate amount of ascites which has increased slightly from the prior ultrasound study. IMPRESSION: MODERATE AMOUNT OF ASCITES SLIGHTLY INCREASED
[2018-08-03] MEDS: Spironolactone TAB* 25 MG PO SCH (16:40)
[2018-08-03] MEDS: Gabapentin CAP(*) 300 MG PO SCH (20:31)
[2018-08-03] MEDS: Tamsulosin CAP* 0.4 MG PO SCH (20:32)
[2018-08-04 07:32] LABS: ABS Basophils 0 10^3/ul (0-0.2); ABS Eosinophils 0.2 10^3/ul (0-0.6); ABS Monocytes 0.4 10^3/ul (0-0.8); ABS Neutrophils 1.3 10^3/ul (1.5-7.7); ABS Nucleated RBC 0 10^3/ul; Eosinophil % 6.4 % (0-6); Hematocrit 25 % (42-52); Hemoglobin 8.2 g/dl (14.0-18.0); Lymphocyte % 33.9 % (25-47); Mean Corpuscular HGB Conc 32 g/dl (31-36); Mean Corpuscular Hemoglobin 31 pg (27-31); Mean Corpuscular Volume 96 fL (80-94); Mean Platelet Volume 7.2 um3 (7.4-10.4); Nucleated Red Blood Cells % 0.2; Platelet Count 73 10^3/ul (150-450); Red Blood Count 2.64 10^6/ul (4.00-5.40); Red Cell Distribution Width 20 % (10.5-15)
[2018-08-04 07:36] LABS: INR 1.96 (0.77-1.02)
[2018-08-04 07:42] LABS: EGFR Non-African American 105.9 (>60)
[2018-08-04] MEDS ORDERED: Magnesium Sulf 4 GM/100 ML IV* 4,000 MG/100 ML BAG IVPB ONE (09:00)
[2018-08-04] MEDS: Propranolol TAB* 10 MG PO SCH (10:24)
[2018-08-04] MEDS: Citalopram TAB* 20 MG PO SCH (10:24)
[2018-08-04] MEDS: Omeprazole CAP* 20 MG PO SCH (10:24)
[2018-08-04] MEDS: Spironolactone TAB* 25 MG PO SCH (10:24)
[2018-08-04] MEDS: levETIRAcetam TAB* 500 MG PO SCH ×2 (10:24→19:51)
[2018-08-04] MEDS: RiFAXimin* 550 MG TAB PO SCH ×2 (10:24→19:57)
[2018-08-04] MEDS: Acetaminophen TAB* 325 MG PO PRN (10:24)
[2018-08-04] MEDS: Cyanocobalamin TAB* 500 MCG PO SCH (10:24)
[2018-08-04] MEDS: Folic Acid TAB* 1 MG PO SCH (10:25)
--- NOTE | 2018-08-04 15:51 | PN ---
Subjective Date of Service: 08/04/18 Interval History: Pt seen and examined. Meds and labs reviewed. CC: Weakness and minor gait instability ROS: Denied WILSON/dizziness, F/C, N/V, CP, SOB, increased cough, sputum production , abd pain, diarrhea, constipation, dysuria, myalgias, arthralgias, throat pain , and new skin lesions. The rest of the 14 point ROS are unremarkable. PHYSICAL EXAM: GEN APPEARANCE: Awake, not in acute distress, Ox3 HEENT: NC/AT, PERRLA, moist oral mucosa, (-) throat erythema NECK: Soft, supple, (-) cervical LAD, (-)JVD HEART: S1S2 WNL, RRR, No MRG CHEST: CTA, BL, GAE, No W/R/R ABD: Soft, (+)Abd distention, dull to percussion/NT, NABS 4x Q EXT: No C/C/E SKIN: Warm to touch NEURO: (-)Asterexis PSYCH: No active psychosis, hallucinations, depression, SI/HI Family History: Unchanged from Admission Social History: Unchanged from Admission Past Medical History: Unchanged from Admission Objective Active Medications: Acetaminophen (Tylenol Tab*) 650 mg PO Q8H PRN PRN Reason: PAIN Last Admin: 08/04/18 10:24 Dose: 650 mg Albuterol (Ventolin Hfa Inhaler*) 2 puff INH Q4H PRN PRN Reason: SHORTNESS OF BREATH Citalopram Hydrobromide (Celexa Tab*) 20 mg PO DAILY [facility] Last Admin: 08/04/18 10:24 Dose: 20 mg Cyanocobalamin (Vitamin B12 Tab*) 500 mcg PO DAILY [facility] Last Admin: 08/04/18 10:24 Dose: 500 mcg Folic Acid (Folvite Tab*) 1 mg PO DAILY [facility] Last Admin: 08/04/18 10:25 Dose: 1 mg Furosemide (Lasix Tab*) 40 mg PO DAILY [facility] Gabapentin (Neurontin Cap(*)) 300 mg PO BEDTIME [facility] Last Admin: 08/03/18 20:31 Dose: 300 mg Hydroxyzine HCl (Atarax Tab*) 25 mg PO BID PRN PRN Reason: ANXIETY Lactulose (Lactulose*) 30 ml PO QID [facility] Last Admin: 08/04/18 10:21 Dose: 30 ml Levetiracetam (Keppra Tab*) 500 mg PO BID [facility] Last Admin: 08/04/18 10:24 Dose: 500 mg Omeprazole (Prilosec Cap*) 20 mg PO DAILY [facility] Last Admin: 08/04/18 10:24 Dose: 20 mg Propranolol HCl (Inderal Tab*) 10 mg PO DAILY [facility] [place] Last Admin: 08/04/18 10:24 Dose: 10 mg Rifaximin (Xifaxan*) 550 mg PO BID [facility] [place] Last Admin: 08/04/18 10:24 Dose: 550 mg Spironolactone (Aldactone Tab*) 100 mg PO DAILY [facility] Last Admin: 08/04/18 10:24 Dose: 100 mg Tamsulosin HCl (Flomax Cap*) 0.4 mg PO BEDTIME [facility] Last Admin: 08/03/18 20:32 Dose: 0.4 mg Oxygen Devices in Use Now: None Result Diagrams: 08/04/18 07:12 08/04/18 07:12 Microbiology and Other Data: Microbiology 07/30/18 12:32 Aerobic Blood Culture - Preliminary Blood Venous No Growth Day 2 07/30/18 11:39 Aerobic Blood Culture - Preliminary Blood Venous No Growth Day 2 Anaerobic Blood Culture - Preliminary No Growth Day 2 07/30/18 14:19 Nasal Screen MRSA (PCR) - Final Nasal Mrsa Not Detected Assess/Plan/Problems-Billing Assessment: Mr Mata is a 63yo M with PMH of liver cirrhosis secondary to ETOH, multiple episodes of hepatic encephalopathy secondary to non compliance, SDH, HTN, asthma , depression, seizure disorder, who presented to ED with weakness and mild confusion, found to have another episode of hepatic encephalopathy. - Patient Problems (1) Hepatic encephalopathy Current Visit: Yes Status: Acute Code(s): K72.90 - HEPATIC FAILURE, UNSPECIFIED WITHOUT COMA SNOMED Code(s): 69033631 Comment: - Secondary to non compliance. - Continue lactulose and will decrease dose on possible D/C on Sunday - Continue Rifaximin. - Ammonia down to 75 -A mildly elevated ammonia level is not routinely done when pt is no longer confused in absence of asterexis due to the many factors that can affect it, e.g., muscle wasting, fist clenching, use of a tourniquet, and whether the sample was placed on ice. Furthermore, it is usually inconsistently elevated in pts with cirrhosis and may even be normal in pts with obvious hepatic encephalopathy. Left a message yesterday that ammonia levels especially if less than 2x the ULN can vary slightly up or down without any correlation with hepatic encephalopathy (2) Liver cirrhosis Current Visit: Yes Status: Acute Comment: -Continue Spirinolactone -U/S confirms slightly increased moderate ascites -Will add Lasix to his regimen -MELD = 19 (3) Seizures Current Visit: Yes Status: Chronic Priority: Medium Code(s): R56.9 - UNSPECIFIED CONVULSIONS SNOMED Code(s): 32492461 Comment: - Stable - Continue Keppra (4) DVT prophylaxis Current Visit: Yes Status: Acute Priority: Medium Onset Date: 11/02/14 Code(s): [id number] - SNOMED Code(s): 003627875 Comment: - SCDs Status and Disposition: -Continue PT and will await any further recommendation for any needs -D/W Social workers for possible [facility] placement -Possible D/C tomorrow
[2018-08-04] MEDS: Furosemide TAB* 40 MG PO SCH (17:04)
[2018-08-04] MEDS: Gabapentin CAP(*) 300 MG PO SCH (19:50)
[2018-08-04] MEDS: Tamsulosin CAP* 0.4 MG PO SCH (19:51)
[2018-08-05 07:13] LABS: Hematocrit 25 % (42-52); Hemoglobin 8.1 g/dl (14.0-18.0); Mean Corpuscular HGB Conc 33 g/dl (31-36); Mean Corpuscular Hemoglobin 31 pg (27-31); Mean Corpuscular Volume 95 fL (80-94); Mean Platelet Volume 7.5 um3 (7.4-10.4); Platelet Count 69 10^3/ul (150-450); Red Blood Count 2.58 10^6/ul (4.00-5.40); Red Cell Distribution Width 20 % (10.5-15); White Blood Count 3.1 10^3/ul (3.5-10.8)
[2018-08-05 07:24] LABS: EGFR Non-African American 104.3 (>60)
[2018-08-05] MEDS ORDERED: Magnesium Sulf 4 GM/100 ML IV* 4,000 MG/100 ML BAG IVPB ONE (08:12)
[2018-08-05] MEDS: levETIRAcetam TAB* 500 MG PO SCH ×2 (08:21→21:15)
[2018-08-05] MEDS: Omeprazole CAP* 20 MG PO SCH (08:21)
[2018-08-05] MEDS: RiFAXimin* 550 MG TAB PO SCH ×2 (08:21→21:16)
[2018-08-05] MEDS: Acetaminophen TAB* 325 MG PO PRN ×3 (08:21→19:44)
[2018-08-05] MEDS: Citalopram TAB* 20 MG PO SCH (08:22)
[2018-08-05] MEDS: Folic Acid TAB* 1 MG PO SCH (08:22)
[2018-08-05] MEDS: Cyanocobalamin TAB* 500 MCG PO SCH (08:22)
[2018-08-05] MEDS: Furosemide TAB* 40 MG PO SCH (08:29)
[2018-08-05] MEDS: Propranolol TAB* 10 MG PO SCH (08:29)
[2018-08-05] MEDS: Spironolactone TAB* 25 MG PO SCH (08:29)
[2018-08-05 09:36] LABS: INR 1.94 (0.77-1.02)
--- NOTE | 2018-08-05 17:27 | PN ---
Subjective Date of Service: 08/05/18 Interval History: Pt seen and examined. Meds and labs reviewed. CC: Weakness and minor gait instability ROS: Denied WILSON/dizziness, F/C, N/V, CP, SOB, increased cough, sputum production , abd pain, diarrhea, constipation, dysuria, myalgias, arthralgias, throat pain , and new skin lesions. The rest of the 14 point ROS are unremarkable. PHYSICAL EXAM: GEN APPEARANCE: Awake, not in acute distress, Ox3 HEENT: NC/AT, PERRLA, moist oral mucosa, (-) throat erythema NECK: Soft, supple, (-) cervical LAD, (-)JVD HEART: S1S2 WNL, RRR, No MRG CHEST: CTA, BL, GAE, No W/R/R ABD: Soft, (+)Abd distention, dull to percussion/NT, NABS 4x Q EXT: No C/C/E SKIN: Warm to touch NEURO: (-)Asterexis PSYCH: No active psychosis, hallucinations, depression, SI/HI Family History: Unchanged from Admission Social History: Unchanged from Admission Past Medical History: Unchanged from Admission Objective Active Medications: Acetaminophen (Tylenol Tab*) 650 mg PO Q8H PRN PRN Reason: PAIN Last Admin: 08/05/18 08:32 Dose: 650 mg Albuterol (Ventolin Hfa Inhaler*) 2 puff INH Q4H PRN PRN Reason: SHORTNESS OF BREATH Citalopram Hydrobromide (Celexa Tab*) 20 mg PO DAILY [facility] Last Admin: 08/05/18 08:22 Dose: 20 mg Cyanocobalamin (Vitamin B12 Tab*) 500 mcg PO DAILY [facility] Last Admin: 08/05/18 08:22 Dose: 500 mcg Folic Acid (Folvite Tab*) 1 mg PO DAILY [facility] Last Admin: 08/05/18 08:22 Dose: 1 mg Furosemide (Lasix Tab*) 40 mg PO DAILY [facility] Last Admin: 08/05/18 08:29 Dose: 40 mg Gabapentin (Neurontin Cap(*)) 300 mg PO BEDTIME [facility] Last Admin: 08/04/18 19:50 Dose: 300 mg Hydroxyzine HCl (Atarax Tab*) 25 mg PO BID PRN PRN Reason: ANXIETY Lactulose (Lactulose*) 30 ml PO QID [facility] Last Admin: 08/05/18 15:03 Dose: 30 ml Levetiracetam (Keppra Tab*) 500 mg PO BID [facility] Last Admin: 08/05/18 08:21 Dose: 500 mg Omeprazole (Prilosec Cap*) 20 mg PO DAILY [facility] Last Admin: 08/05/18 08:21 Dose: 20 mg Propranolol HCl (Inderal Tab*) 10 mg PO DAILY [facility] Last Admin: 08/05/18 08:29 Dose: 10 mg Rifaximin (Xifaxan*) 550 mg PO BID [facility] Last Admin: 08/05/18 08:21 Dose: 550 mg Spironolactone (Aldactone Tab*) 100 mg PO DAILY [facility] Last Admin: 08/05/18 08:29 Dose: 100 mg Tamsulosin HCl (Flomax Cap*) 0.4 mg PO BEDTIME [facility] Last Admin: 08/04/18 19:51 Dose: 0.4 mg Vital Signs - 8 hr 08/05/18 08/05/18 11:35 15:37 Temperature 97.8 F 97.8 F Pulse Rate 82 86 Respiratory 17 16 Rate Blood Pressure 112/51 99/53 (mmHg) O2 Sat by Pulse 99 97 Oximetry Oxygen Devices in Use Now: None Result Diagrams: 08/05/18 06:14 08/05/18 06:14 Microbiology and Other Data: Microbiology 07/30/18 12:32 Aerobic Blood Culture - Preliminary Blood Venous No Growth Day 2 07/30/18 11:39 Aerobic Blood Culture - Preliminary Blood Venous No Growth Day 2 Anaerobic Blood Culture - Preliminary No Growth Day 2 07/30/18 14:19 Nasal Screen MRSA (PCR) - Final Nasal Mrsa Not Detected Assess/Plan/Problems-Billing Assessment: Mr Mata is a 63yo M with PMH of liver cirrhosis secondary to ETOH, multiple episodes of hepatic encephalopathy secondary to non compliance, SDH, HTN, asthma , depression, seizure disorder, who presented to ED with weakness and mild confusion, found to have another episode of hepatic encephalopathy. - Patient Problems (1) Hepatic encephalopathy Current Visit: Yes Status: Acute Code(s): K72.90 - HEPATIC FAILURE, UNSPECIFIED WITHOUT COMA SNOMED Code(s): 35011524 Comment: - Secondary to non compliance. - Continue lactulose and will decrease dose possible D/C to increase compliance - Continue Rifaximin. - Ammonia down to 87 -A mildly elevated ammonia level is not routinely done when pt is no longer confused in absence of asterexis due to the many factors that can affect it, e.g., muscle wasting, fist clenching, use of a tourniquet, and whether the sample was placed on ice. Furthermore, it is usually inconsistently elevated in pts with cirrhosis and may even be normal in pts with obvious hepatic encephalopathy. Left a message yesterday that ammonia levels especially if less than 2x the ULN can vary slightly up or down without any correlation with hepatic encephalopathy (2) Liver cirrhosis Current Visit: Yes Status: Acute Comment: -Continue Spirinolactone and Lasix and low salt diet for ascites; will give IV albumin for forced diuresis -U/S confirms slightly increased moderate ascites -MELD = 19 (3) Seizures Current Visit: Yes Status: Chronic Priority: Medium Code(s): R56.9 - UNSPECIFIED CONVULSIONS SNOMED Code(s): 91815887 Comment: - Stable - Continue Keppra (4) DVT prophylaxis Current Visit: Yes Status: Acute Priority: Medium Onset Date: 11/02/14 Code(s): [id number] - SNOMED Code(s): 824463701 Comment: - SCDs Status and Disposition: -Continue PT and will await any further recommendation for any needs -D/W Social workers for possible [facility] placement -Possible D/C in 1-2 days
[2018-08-05] MEDS: Albumin Human 25%* 25 GM/100 ML IV SCH (19:49)
[2018-08-05] MEDS: Gabapentin CAP(*) 300 MG PO SCH (21:16)
[2018-08-05] MEDS: Tamsulosin CAP* 0.4 MG PO SCH (21:16)
[2018-08-06] MEDS: Albumin Human 25%* 25 GM/100 ML IV SCH ×2 (02:18→10:26)
[2018-08-06] MEDS: Spironolactone TAB* 25 MG PO SCH (07:52)
[2018-08-06] MEDS: Propranolol TAB* 10 MG PO SCH (07:52)
[2018-08-06] MEDS: RiFAXimin* 550 MG TAB PO SCH (07:53)
[2018-08-06] MEDS: Furosemide TAB* 40 MG PO SCH (07:53)
[2018-08-06] MEDS: levETIRAcetam TAB* 500 MG PO SCH (07:53)
[2018-08-06] MEDS: Omeprazole CAP* 20 MG PO SCH (07:53)
[2018-08-06] MEDS: Citalopram TAB* 20 MG PO SCH (07:53)
[2018-08-06] MEDS: Cyanocobalamin TAB* 500 MCG PO SCH (07:53)
[2018-08-06] MEDS: Folic Acid TAB* 1 MG PO SCH (07:53)
--- NOTE | 2018-08-06 11:47 | PN ---
Subjective Date of Service: 08/06/18 Interval History: Pt resting comfortably in bed. Endorses frequent bowel movements in the setting of lactulose and frequent urination in the setting of lasix and spironolactone. Pt denies shortness of breath, chest pain, palpitations, abdominal pain, nausea/ vomiting, numbness or tingling in extremities. Family History: Unchanged from Admission Social History: Unchanged from Admission Past Medical History: Unchanged from Admission Objective Active Medications: Acetaminophen (Tylenol Tab*) 650 mg PO Q8H PRN PRN Reason: PAIN Last Admin: 08/05/18 19:44 Dose: 650 mg Albuterol (Ventolin Hfa Inhaler*) 2 puff INH Q4H PRN PRN Reason: SHORTNESS OF BREATH Citalopram Hydrobromide (Celexa Tab*) 20 mg PO DAILY [facility] Last Admin: 08/06/18 07:53 Dose: 20 mg Cyanocobalamin (Vitamin B12 Tab*) 500 mcg PO DAILY [facility] Last Admin: 08/06/18 07:53 Dose: 500 mcg Folic Acid (Folvite Tab*) 1 mg PO DAILY [facility] Last Admin: 08/06/18 07:53 Dose: 1 mg Furosemide (Lasix Tab*) 40 mg PO DAILY [facility] Last Admin: 08/06/18 07:53 Dose: 40 mg Gabapentin (Neurontin Cap(*)) 300 mg PO BEDTIME [facility] Last Admin: 08/05/18 21:16 Dose: 300 mg Hydroxyzine HCl (Atarax Tab*) 25 mg PO BID PRN PRN Reason: ANXIETY Albumin Human (Albumin Human 25%*) 50 gm in 200 mls @ 100 mls/hr IV Q8H [facility] Stop: 08/06/18 11:59 Last Admin: 08/06/18 10:26 Dose: 100 mls/hr Lactulose (Lactulose*) 30 ml PO QID [facility] Last Admin: 08/06/18 07:52 Dose: 30 ml Levetiracetam (Keppra Tab*) 500 mg PO BID [facility] Last Admin: 08/06/18 07:53 Dose: 500 mg Omeprazole (Prilosec Cap*) 20 mg PO DAILY [facility] Last Admin: 08/06/18 07:53 Dose: 20 mg Propranolol HCl (Inderal Tab*) 10 mg PO DAILY [facility] Last Admin: 08/06/18 07:52 Dose: 10 mg Rifaximin (Xifaxan*) 550 mg PO BID [facility] Last Admin: 08/06/18 07:53 Dose: 550 mg Spironolactone (Aldactone Tab*) 100 mg PO DAILY [facility] Last Admin: 08/06/18 07:52 Dose: 100 mg Tamsulosin HCl (Flomax Cap*) 0.4 mg PO BEDTIME [facility] Last Admin: 08/05/18 21:16 Dose: 0.4 mg Vital Signs - 8 hr 08/06/18 08/06/18 08/06/18 04:39 05:22 05:27 Temperature 97.9 F 98.0 F Pulse Rate 86 85 Respiratory 18 17 Rate Blood Pressure 111/56 83/40 119/52 (mmHg) O2 Sat by Pulse 98 96 Oximetry Oxygen Devices in Use Now: None Eyes: No Scleral Icterus, PERRLA Ears/Nose/Mouth/Throat: NL Teeth, Lips, Gums, Mucous Membranes Moist Neck: NL Appearance and Movements; NL JVP, Trachea Midline Respiratory: Symmetrical Chest Expansion and Respiratory Effort, Clear to Auscultation Cardiovascular: NL Sounds; No Murmurs; No JVD, RRR, No Edema Abdominal: - - Abdomen soft but distended. Bowel sounds present x4. Umbilical hernia visible. Extremities: No Clubbing, Cyanosis, - - Trace lower extremity edema Skin: No Rash or Ulcers Neurological: Alert and Oriented x 3, NL Sensation, NL Muscle Strength and Tone , - - No asterixis Lines/Tubes/Other Access: Clean, Dry and Intact Peripheral IV Nutrition: Taking PO's Result Diagrams: 08/05/18 06:14 08/05/18 06:14 Microbiology and Other Data: Microbiology 07/30/18 12:32 Aerobic Blood Culture - Preliminary Blood Venous No Growth Day 2 07/30/18 11:39 Aerobic Blood Culture - Preliminary Blood Venous No Growth Day 2 Anaerobic Blood Culture - Preliminary No Growth Day 2 07/30/18 14:19 Nasal Screen MRSA (PCR) - Final Nasal Mrsa Not Detected Assess/Plan/Problems-Billing Assessment: Mr Mata is a 63yo M with PMH of liver cirrhosis secondary to ETOH, multiple episodes of hepatic encephalopathy secondary to non compliance, SDH, HTN, asthma , depression, seizure disorder, who presented to ED with weakness and mild confusion, found to have another episode of hepatic encephalopathy. Treaded with lactulose, and counselled extensively on dangers on noncompliance. - Patient Problems (1) Hepatic encephalopathy Current Visit: Yes Status: Acute Code(s): K72.90 - HEPATIC FAILURE, UNSPECIFIED WITHOUT COMA SNOMED Code(s): 54564682 Comment: - Secondary to non compliance with lactulose regimen. Multiple admissions for same. - Pt no longer confused and no lonxer with asterixis. Ammonia level had trended down since admission (114--> 87) - Will discharge pt on Lactulose 30mL TID down from the four daily doses he was receiving acutely. As pt is being discharged to [facility], they can help titrate this dose for 3 soft BMs per day and figure out a dose that could increase patient compliance. - Continue Rifaximin - Ammonia trended down overall to 87 (2) Liver cirrhosis Current Visit: Yes Status: Acute Comment: - U/S confirms slightly increased moderate ascites - Continue Spirinolactone and Lasix and low salt diet for ascites. Pt has also received IV albumin for increased diuresis as an inpatient - MELD = 19 (3) Seizures Current Visit: Yes Status: Chronic Priority: Medium Code(s): R56.9 - UNSPECIFIED CONVULSIONS SNOMED Code(s): 46870186 Comment: - No evidence of seizure activity - Continue Keppra (4) Hypomagnesemia Current Visit: Yes Status: Acute Code(s): E83.42 - HYPOMAGNESEMIA SNOMED Code(s): 851667651 Comment: - Chronic problem for this patient. 1.5-1.7 during this admission. Taking PO supplimentatio as outpatient. Received IV mag yesterday, and will be discharged with increase in PO mag to 400mg BID (5) Urinary retention Current Visit: No Status: Acute Code(s): R33.9 - RETENTION OF URINE, UNSPECIFIED SNOMED Code(s): 418731841 Comment: - Continue flomax (6) DVT prophylaxis Current Visit: Yes Status: Acute Priority: Medium Onset Date: 11/02/14 Code(s): TIM1262 - SNOMED Code(s): 396921414 Comment: - SCDs (7) Full code status Current Visit: Yes Status: Acute Priority: Medium Onset Date: 11/02/14 Code(s): Z78.9 - OTHER SPECIFIED HEALTH STATUS SNOMED Code(s): 973262785 Comment: Status and Disposition: Pt will be discharged to [facility] Attending: Donavon Douglas
--- NOTE | 2018-08-06 13:30 | DS ---
AMENDED REPORT NOW INCLUDES DESIGNATED COSIGNER CC: Dr Rosie Noriega * DATE OF ADMISSION: 07/30/2018. DATE OF DISCHARGE: 08/06/2018. PROVIDER: Mireya Negro NP. ATTENDING PHYSICIAN: Dr. Donavon Douglas * (dictated by Mireya Negro NP). PRIMARY CARE PHYSICIAN: Dr. Rosie Noriega. PRIMARY DIAGNOSIS: Hepatic encephalopathy secondary to noncompliance with Lactulose and alcoholic liver cirrhosis. SECONDARY DIAGNOSES: 1. Hypertension. 2. Asthma. 3. Depression. 4. History of seizures. 5. Chronic umbilical hernia. DISCHARGE MEDICATIONS: 1. Keppra 500 mg p.o. b.i.d. 2. Atarax 25 mg p.o. b.i.d. prn. 3. Nasacort one puff both nares at bedtime. 4. Flomax 0.5 mg p.o. at bedtime. 5. Rifaximin 550 mg p.o. b.i.d. 6. Propranolol 10 mg p.o. daily. 7. Prilosec 20 mg p.o. daily. 8. Gabapentin 300 mg p.o. at bedtime. 9. Lasix 40 mg p.o. daily. 10. Folic acid 1 mg p.o. daily. 11. Lexapro 10 mg p.o. daily. 12. Epinephrine 2-pack EpiPen 0.3 mg IM once prn for bee stings. 13. Vitamin B12 500 mcg p.o. daily. 14. Albuterol HFA inhaler two puffs INH q.4 hours prn. 15. Acetaminophen 650 mg p.o. q.8 hours prn with a max daily dose of 2 gm per day. The patient has been advised not to exceed 2 gm a day given his history of cirrhosis. 16. Spironolactone 100 mg p.o. daily. 17. Magnesium Oxide 400 mg p.o. b.i.d. 18. Lactulose 30 mg p.o. t.i.d., please titrate to three soft bowel movements per day. HOSPITAL COURSE: This is a 63-year-old male with a past medical history of cirrhosis secondary to alcohol abuse, subdural hematoma, hypertension, asthma, depression, and seizures and chronic umbilical hernia who presented to the ED with complaints of increased confusion. Of note, this is the patient's third admission this month for confusion secondary to noncompliance with Lactulose regimen resulting in hepatic encephalopathy. The patient has been counseled extensively on the dangers of not taking his Lactulose; however, he feels that the diarrhea is unbearable and repeatedly attempts to lower his dose. The patient on this admission was counseled extensively by Dr. Hwang and myself about the need to improve his compliance of the Lactulose regimen and the patient has expressed that he understands the importance of continuing with the regimen in order to avoid future admissions to the hospital and additional episodes of confusion. While in the hospital, he was given Lactulose aggressively, 30 ml four times daily. His confusion did resolve as well as his asterixis. The patient will be discharged to [facility] and his Lactulose dose has been decreased to 30 ml three times a day with the goal of titrating his Lactulose to achieve three soft bowel movements per day. Dr. Hwang had discussed possibly attempting a trial of a once daily dosing which would require intensive management from family to monitor for worsening confusion and administer additional doses if necessary; however, as the patient is being discharged to [facility] and will be monitored there, ideally titration of a Lactulose will be able to be achieved so that the patient can find a regimen he can be compliant with, as this is the keller to preventing readmission. The patient is also on Rifaximin which should be continued. The patient's ammonia level has trended down since his admission from a peak of 114 to 87 most recently. Also of note, the patient had an ultrasound which confirmed slightly increased moderate ascites. The patient will continue Spironolactone and Lasix as well as a low salt diet for this ascites. During his admission, he also received IV albumin to help with diuresis and decrease the ascites. Also of note, the patient did experience hypomagnesemia during his admission. This is a chronic problem for this patient and has also had a low magnesium level on the previous admission. His range was between 1.5 to 1.7 during this admission and received supplementation with IV magnesium. He will be discharged with an increase in his p.o. mag to 400 mg b.i.d. for two weeks and recommend follow-up magnesium level in two weeks. The patient has been evaluated by PT during his admission and was felt to have ongoing gait abnormalities that could benefit from additional therapy. He will be discharged in stable condition to [facility]. DIET: The patient is on a low sodium diet, 1 to 1.5 gm daily of sodium. ACTIVITY: The patient can have activity as tolerated. FOLLOW-UP: It is advised that the patient follow-up with his primary care provider, Dr. Rosie Noriega. DISPOSITION: Stable for discharge to [facility]. TIME SPENT: Time spent for this discharge was 35 minutes. MIREYA NEGRO, DARCI [id number]/CPS #: [id number] MARILUZ
[2018-08-06 13:58] VITALS: BP 114/50
== END 2018-08-06 14:00 | DRG 279 ==
LOC: ED 11:08 → MED 13:57
PROVIDERS: ADMIT Internal Medicine; ATTEND Student in an Organized Health Care Education/Training Program
DX: K72.90 Hepatic failure, unspecified without coma (principal); Z91.14 Patient's other noncompliance with medication regimen; K70.30 Alcoholic cirrhosis of liver without ascites; F10.20 Alcohol dependence, uncomplicated; Y90.0 Blood alcohol level of less than 20 mg/100 ml; I10 Essential (primary) hypertension; J45.909 Unspecified asthma, uncomplicated; F32.9 Major depressive disorder, single episode, unspecified; G40.909 Epilepsy, unspecified, not intractable, without status epilepticus; K42.9 Umbilical hernia without obstruction or gangrene; E83.42 Hypomagnesemia; Z79.1 Long term (current) use of non-steroidal anti-inflammatories (NSAID); Z79.899 Other long term (current) drug therapy; Z88.8 Allergy status to other drugs, medicaments and biological substances; Z91.030 Bee allergy status; Z82.3 Family history of stroke; R33.9 Retention of urine, unspecified
CPT/HCPCS: 36415; 71046; 76705; 80053; 80307; 80320; 80329; 81003; 81015; 82140; 82550; 83605; 83735; 84100; 84443; 84484; 85025; 85027; 85610; 87040; 87086; 87641; 93005; 99284; A9270-GY; G0480; J3411; J3475; P9047

== ENCOUNTER 2018-08-28 10:25 | Inpatient (IN) | payer BC ==
[2018-08-28] MEDS ORDERED: NS 0.9% 1000 ML* 1,000 ML IV ONE (10:29)
--- NOTE | 2018-08-28 10:30 | ED ---
Adult Trauma - HPI Summary HPI Summary: The pt is a 63 y/o male brought in by ambulance to [facility] c/o L rib pain s/p a fall 5 days ago when he fell down and icy staircase. He notes neck pain and back bruising but denies back pain and head trauma. As per EMS, the patient has been increasingly confused and bedridden since after the fall. He reports EtOH consumption today morning. PMHx: Hepatic encephalopathy, cirrhosis, and HTN. Home Medications Medication Instructions Recorded Confirmed Type Cyanocobalamin TAB* [Vitamin B12 500 mcg PO DAILY 03/08/18 07/30/18 History TAB*] Escitalopram (NF) [Lexapro 10 mg 10 mg PO DAILY 03/08/18 07/30/18 History (NF)] Folic Acid TAB* [Folvite TAB*] 1 mg PO DAILY 03/08/18 07/30/18 History Furosemide TAB* [Lasix TAB*] 40 mg PO DAILY 03/08/18 07/30/18 History Gabapentin CAP(*) [Neurontin 300 300 mg PO BEDTIME 03/08/18 07/30/18 History CAP(*)] Omeprazole CAP* [Prilosec CAP* 20 20 mg PO DAILY 03/08/18 07/30/18 History MG] Propranolol TAB* [Inderal TAB*] 10 mg PO DAILY 03/08/18 07/30/18 History RiFAXimin* [Xifaxan*] 550 mg PO BID 03/08/18 07/30/18 History Triamcinolone NASAL SPRAY* 1 puff BOTH NARES BEDTIME 03/08/18 07/30/18 History [Nasacort Aq Nasal [place]*] hydrOXYzine HCL TAB* [Atarax 25 MG 25 mg PO BID PRN 03/08/18 07/30/18 History TAB*] levETIRAcetam TAB* [Keppra TAB*] 500 mg PO BID 03/08/18 07/30/18 History Albuterol HFA INHALER* [Ventolin 2 puff INH Q4H PRN 07/09/18 07/30/18 History HFA Inhaler*] EPINEPHrine [Epipen 2-Maciej] 0.3 mg IM ONCE PRN 07/09/18 07/30/18 History Tamsulosin CAP* [Flomax CAP*] 0.4 mg PO BEDTIME #30 cap 07/12/18 07/30/18 Rx Acetaminophen TAB* [Tylenol TAB*] 650 mg PO Q8H PRN #30 tab MDD 08/02/18 Rx 2g/day Magnesium Oxide TAB* [MagOx 400 400 mg PO BID 14 Days #28 tab 08/05/18 Rx TAB*] Spironolactone TAB* [Aldactone TAB 100 mg PO DAILY #30 tab 08/05/18 Rx 25 MG*] Lactulose* 30 ml PO TID udc 08/06/18 Rx - History of Current Complaint Stated Complaint: FALL Time Seen by Provider: 08/28/18 10:27 Hx Obtained From: Patient, EMS Mechanism of Injury: Fall Onset/Duration: Started Days Ago - 5 days, Still Present Onset of Pain: Post Accident Current Severity: Severe Pain Intensity: 8 Pain Scale Used: 0-10 Numeric Location: Neck, Chest - R side Associated Signs & Symptoms: Positive: Negative - Back pain, head trauma - Additional Pertinent History Primary Care Physician: CARO - Allergy/Home Medications Allergies/Adverse Reactions: Allergies Allergy/AdvReac Type Severity Reaction Status Date / Time bee pollen Allergy Hives Verified 07/10/18 12:12 bee venom protein (honey bee) Allergy Hives Verified 07/10/18 12:12 lorazepam [From Ativan] Allergy See Comment Verified 07/09/18 11:16 sertraline Allergy Rash And Verified 07/09/18 11:16 Itching PMH/Surg Hx/FS Hx/Imm Hx Previously Healthy: No Endocrine/Hematology History: Reports: Hx Diabetes - elevated glucose after acute liver failure - diet controlled Denies: Hx Anticoagulant Therapy, Hx Thyroid Disease, Hx Anemia, Hx Unexplained Bleeding Cardiovascular History: Reports: Hx Hypercholesterolemia, Hx Hypertension Denies: Hx Aneurysm, Hx Angina, Hx Angioplasty, Hx Auto Implanted Cardiovert Defib, Hx Cardiac Arrest, Hx Cardiomegaly, Hx Congenital Heart Disease, Hx Congestive Heart Failure, Hx Coronary Artery Disease, Hx Deep Vein Thrombosis, Hx Embolism, Hx Hypotension, Hx Pacemaker/ICD, Hx Peripheral Vascular Disease, Hx Rheumatic Fever, Hx Syncope, Hx Valvular Heart Disease, Other Cardiovascular Problems/Disorders Respiratory History: Reports: Hx Asthma, Hx Chronic Bronchitis, Hx Seasonal Allergies - hay fever Denies: Hx Chronic Obstructive Pulmonary Disease (COPD), Hx Cystic Fibrosis, Hx Lung Cancer, Hx Pleural Effusion, Hx Pneumonia, Hx Pulmonary Edema, Hx Pulmonary Embolism, Hx Sleep Apnea, Other Respiratory Problems/Disorders GI History: Reports: Hx Cirrhosis, Hx Gall Bladder Disease, Hx Hiatal Hernia, Hx Ulcer Denies: Hx Crohn's Disease, Hx Diverticulosis, Hx Gastroesophageal Reflux Disease, Hx Gastrointestinal Bleed, Hx Irritable Bowel, Hx Jaundice, Hx Obstructive Bowel, Hx Ileostomy, Hx Pyloric Stenosis, Other GI Disorders History: Denies: Hx Dialysis, Hx Renal Disease Musculoskeletal History: Reports: Hx Arthritis - both knees, Hx Orthopedic Injury Denies: Hx Back Problems, Hx Bursitis, Hx Congenital Bone Abnormalities, Hx Fibromyalgia, Hx Gout, Hx Osteoporosis, Hx Scoliosis, Hx Tendonitis, Other Musculoskeletal History Sensory History: Reports: Hx Contacts or Glasses Denies: Hx Cataracts, Hx Eye Injury, Hx Eye Prosthesis, Hx Glaucoma, Hx Legally Blind, Hx Macular Degeneration, Hx Vision Problem, Hx Deafness, Hx Hearing Aid, Hx Hearing Problem, Other Sensory Impairments Opthamlomology History: Reports: Hx Contacts or Glasses Denies: Hx Cataracts, Hx Eye Injury, Hx Eye Prosthesis, Hx Glaucoma, Hx Legally Blind, Hx Macular Degeneration, Hx Vision Problem, Other Sensory Impairments Neurological History: Reports: Hx Headaches, Hx Seizures, Other Neuro Impairments/Disorders - Subdural Hematoma Denies: Hx Dementia Psychiatric History: Reports: Hx Depression, Hx Substance Abuse - ETOH Denies: Hx Anxiety, Hx Attention Deficit Hyperactivity Disorder, Hx Eating Disorder, Hx Panic Disorder, Hx Post Traumatic Stress Disorder, Hx Inpatient Treatment, Hx Community Mental Health Tx, Hx Schizophrenia, Hx Bipolar Disorder , Hx Suicide Attempt, Hx of Violent Episodes Against Others, Other Psychiatric Issues/Disorders - Cancer History Cancer Type, Location and Year: None reported - Surgical History Surgery Procedure, Year, and Place: RIGHT ANKLE ORIF. LEFT KNEE TENDON REPAIR. CHOLECYSECTOMY. APPENDECTOMY. TONSILECTOMY Hx Anesthesia Reactions: No Infectious Disease History: Reports: Hx of Known/Suspected MRSA Denies: Hx Clostridium Difficile, Hx Hepatitis, Hx Human Immunodeficiency Virus (HIV), Hx Shingles, Hx Tuberculosis, History Other Infectious Disease - Family History Known Family History: Negative: Cardiac Disease, Diabetes - Social History Occupation: Employed Full-time Lives: With Family Alcohol Use: Occasionally Alcohol Amount: 07/30/18 - states no use. Hx Substance Use: Yes Substance Use Type: Reports: None Substance Use Comment - Amount & Last Used: pt states he hasn't had a drink in 2 weeks Hx Tobacco Use: Yes Smoking Status (MU): Light Every Day Tobacco Smoker Type: Cigarettes Length of Time of Smoking/Using Tobacco: 5 years Have You Smoked in the Last Year: No Review of Systems Constitutional: Other - Positive: Confusion ENT: Other - Positive: Neck pain Musculoskeletal: Negative - Back pain, Head trauma , Other - Positive: R rib pain, fall on ice Positive: Bruising - Upper back All Other Systems Reviewed And Are Negative: Yes Physical Exam - Summary Physical Exam Summary: VITAL SIGNS: Reviewed. GENERAL: Patient is a well-developed and nourished male who is lying comfortable in the stretcher.Patient is in acute distress due to pain but is not in any acute respiratory distress. Slow responsiveness noted. HEAD AND FACE: No signs of trauma. No ecchymosis, hematomas or skull depressions. No sinus tenderness. EYES: PERRLA, EOMI x 2, No injected conjunctiva, no nystagmus. No photophobia. EARS: Hearing grossly intact. Ear canals and tympanic membranes are within normal limits. MOUTH: Oropharynx within normal limits. NECK: Supple, trachea is midline, no adenopathy, no JVD, no carotid bruit, no c- spine tenderness, neck with full ROM. No meningeal signs, no Kernig's or brudzinskis signs. CHEST: Symmetric, tender to palpation in the L side of the ribcage near the mid -axillary line LUNGS: Clear to auscultation bilaterally. No wheezing or crackles. CVS: Regular rate and rhythm, S1 and S2 present, no murmurs or gallops appreciated. ABDOMEN: Soft, non-tender. No signs of distention. No rebound no guarding, and no masses palpated. Bowel sounds are normal. EXTREMITIES: FROM in all major joints, no edema, no cyanosis or clubbing. NEURO: Alert and oriented x 3. No acute neurological deficits. Speech is normal and follows commands. SKIN: Dry and warm. Bruise in the L upper back. GCS: 15 Triage Information Reviewed: Yes Vital Signs On Initial Exam: Initial Vital Signs Temp 98.4 F 08/28/18 10:29 Pulse 65 08/28/18 10:29 Resp 19 08/28/18 10:29 BP 116/57 08/28/18 10:29 Pulse Ox 97 08/28/18 10:29 Vital Signs Reviewed: Yes Diagnostics - Laboratory Result Diagrams: 08/29/18 06:15 08/29/18 06:15 Lab Statement: Any lab studies that have been ordered have been reviewed, and results considered in the medical decision making process. - Radiology Ribs with Chest X-ray Radiology Interpretation Completed By: Radiologist - IMPRESSION: FRACTURES OF THE LEFT SIXTH THROUGH NINTH RIBS WITHOUT APPRECIABLE PNEUMOTHORAX The ED physician reviewed this radiology report. - CT Cervical Spine CT CT Interpretation Completed By: Radiologist - IMPRESSION: 1. DEGENERATIVE DISC DISEASE AND OSTEOARTHRITIS. 2. THERE IS MILD NARROWING OF THE CENTRAL CANAL AT C5-C6 AND C6-C7 WITH MULTILEVEL NEURAL FORAMINAL NARROWING DESCRIBED ABOVE. 3. NO ACUTE OSSEOUS INJURY TO THE CERVICAL SPINE. The ED physician reviewed this radiology report. Brain CT CT Interpretation Completed By: Radiologist - IMPRESSION: NO ACUTE INTRACRANIAL PATHOLOGY. STABLE BIFRONTAL ENCEPHALOMALACIA The ED physician reviewed this radiology report. Chest CT CT Interpretation Completed By: Radiologist - IMPRESSION: 1. ACUTE FRACTURES OF THE LEFT SIXTH THROUGH 11TH RIBS. 2. SUBACUTE TO CHRONIC APPEARING FRACTURES OF THE RIGHT 10TH AND 11TH RIBS. 3. NO APPRECIABLE PNEUMOTHORAX. 4. TRACE LEFT PLEURAL EFFUSION. 5. SMALL AMOUNT OF PERIHEPATIC ASCITES The ED physician reviewed this radiology report. - EKG 10:38 Cardiac Rate: NL - 63 bpm EKG Rhythm: Sinus Rhythm Summary of EKG Findings: Similar to previosu EKG done on 07/30/2018 Adult Trauma Course/Dx - Course Assessment/Plan: The pt is a 63 y/o male brought in by ambulance to [facility] c/o L rib pain s/p a fall 5 days ago when he fell down and icy staircase. He notes neck pain and back bruising but denies back pain and head trauma. As per EMS, the patient has been increasingly confused and bedridden since after the fall. He reports EtOH consumption today morning. PMHx: Hepatic encephalopathy, cirrhosis, and HTN. Head CT impression: No acute intracranial pathology. Stable bifrontal encephalomalacia. Blood work shows an slight anemia, creatinine 1.26, glucose 151, lactic acid is 3.6. Total bili is 3.8 and alkaline phosphatase is 141. Troponin is 0.01. C-spine CT impression: Degenerative disc disease and also arthritis. There is a mild narrowing of the central canal at C5 and C6, and C6 and C7 with multilevel neural foraminal narrowing. No acute osseous injury of the cervical spine. Ammonia level is 135. I gave the patient lactulose PO. X-ray of the left rib cage and chest impression: Fractures of the left 6 to the ninth of the ribs without pneumothorax. Chest CT impression:No pneumothorax. I discussed my physical exam , findings and test results with Dr. Garcia from the hospitalist services and she agrees to admit patient to her services. Patient is hemodynamically stable. - Diagnoses Differential Diagnosis/HQI/PQRI: Positive: Abrasion(s), Contusion(s), Fracture, Hematoma(s), Laceration(s), Sprain, Strain Provider Diagnoses: Hepatic encephalopathy, Rib fracture - Physician Notifications Discussed Care Of Patient With: Blanca Garcia - Hospitalist Time Discussed With Above Provider: 12:07 Instructed by Provider To: Admit As Inpatient Discharge - Sign-Out/Discharge Documenting (check all that apply): Patient Departure - Discharge Plan Condition: Stable Disposition: ADMITTED TO [facility] - Billing Disposition and Condition Condition: STABLE Disposition: Admitted to [facility] - Attestation Statements Document Initiated by Scribe: Yes Documenting Scribe: Jackie Mahan Provider For Whom Corey is Documenting (Include Credential): Dr. Carlos Wilson MD Scribe Attestation: IJackie , scribed for Dr. Carlos Wilson MD on 08/29/18 at 0731. Scribe Documentation Reviewed: Yes Provider Attestation: The documentation as recorded by the Jackie segundo accurately reflects the service I personally performed and the decisions made by me, Dr. Carlos Wilson MD
[2018-08-28 11:10] LABS: ABS Basophils 0.1 10^3/ul (0-0.2); ABS Eosinophils 0.4 10^3/ul (0-0.6); ABS Lymphocytes 1.5 10^3/ul (1.0-4.8); ABS Monocytes 0.8 10^3/ul (0-0.8); ABS Neutrophils 2.9 10^3/ul (1.5-7.7); ABS Nucleated RBC 0 10^3/ul; Eosinophil % 7.3 % (0-6); Hematocrit 31 % (42-52); Hemoglobin 10.1 g/dl (14.0-18.0); Lymphocyte % 26.3 % (25-47); Mean Corpuscular HGB Conc 33 g/dl (31-36); Mean Corpuscular Hemoglobin 30 pg (27-31); Mean Corpuscular Volume 93 fL (80-94); Mean Platelet Volume 7.5 fL (7.4-10.4); Nucleated Red Blood Cells % 0.1; Platelet Count 171 10^3/ul (150-450); Red Blood Count 3.33 10^6/ul (4.00-5.40); Red Cell Distribution Width 22 % (10.5-15); White Blood Count 5.7 10^3/ul (3.5-10.8)
[2018-08-28 11:27] LABS: EGFR Non-African American 58.2 (>60)
[2018-08-28] MEDS ORDERED: Iodixanol* (CONTRAST) 320 MG/ML 100 ML SDV IV ONE (13:02)
[2018-08-28] MEDS ORDERED: Albuterol HFA INHALER* 8 gm MDI INH PRN (15:19)
[2018-08-28] MEDS ORDERED: Albuterol 2.5 MG/3 ML NEB.SOL* (0.083%) INH PRN (15:28)
[2018-08-28] MEDS: traMADol TAB* 50 MG PO PRN (16:36)
[2018-08-28] MEDS: Lidocaine PATCH 5%* 1 PATCH TRANSDERM SCH (16:36)
[2018-08-28] MEDS: Ondansetron INJ* 2 MG/ML VIAL IV PRN (19:52)
[2018-08-28 20:20] LABS: INR 1.42 (0.77-1.02)
--- NOTE | 2018-08-28 20:54 | HP ---
CC: Dr. Rosie Noriega* HISTORY AND PHYSICAL: DATE OF ADMISSION: 08/28/18 PRIMARY CARE PROVIDER: Rosie Noriega MD ATTENDING PHYSICIAN WHILE IN THE HOSPITAL: Blanca Walden MD* (report dictated by Craig Andrade NP) CHIEF COMPLAINT: 1. Left-sided chest pain. 2. Fall. HISTORY OF PRESENT ILLNESS: Mr. Mata is a 63-year-old male patient well known to our service. He has a history of liver cirrhosis from alcoholism. He has a history of a subdural hematoma, history of hypertension. He carries a history of asthma, depression, seizures, umbilical hernia and he states he has had a history of a stroke. He is coming in to our ER today. He is stating that Sunday, he was walking down his driveway. He unfortunately sustained a fall. He slipped on the ice. He landed on his left side, caught himself, so he does not remember hitting a shoulder, but he has noticed that throughout the weekend , he has had worsening left- sided rib pain. Anytime he coughs or takes deep breath, he is getting pain on the left side of his chest. It has been hurting. He said he sneezed twice a day and he thought he was going to pass out because of how much pain it caused. He denies having any shortness of breath. Denies having any loss of consciousness with this. He states that he did drink 2 beers yesterday. He states he has been smoking cigarettes, he had 2 yesterday and 1 today. He denied having any abdominal pain or any nausea, vomiting, or diarrhea or recent fevers. He was concerned though because of the fact of the increasing pain, he was not getting any better. His sister had saw him today and directed him to the ER because she was concerned for possible fractures. He came in to the ED. He was found to have multiple rib fractures on his left side. Because of these findings, we were asked to evaluate for admission. PAST MEDICAL HISTORY: Significant for: 1. Alcoholic liver cirrhosis. 2. Subdural hematoma. 3. Hypertension. 4. Asthma. 5. History of depression. 6. Seizures. 7. Umbilical hernia. 8. History of CVA. PAST SURGICAL HISTORY: 1. He has had a cholecystectomy. 2. Appendectomy. 3. Tonsillectomy. 4. ORIF of his ankle on the left side. 5. Left knee surgery. HOME MEDICATIONS: Include: 1. Keppra 500 mg p.o. b.i.d. 2. Atarax 25 mg p.o. b.i.d. as needed. 3. Nasacort 1 puff both nares at bedtime. 4. Flomax 0.4 mg p.o. at bedtime. 5. Aldactone 100 mg p.o. daily. 6. Rifaximin 550 mg p.o. b.i.d. 7. Propranolol 10 mg daily. 8. Prilosec 20 mg daily. 9. Magnesium oxide 400 mg p.o. b.i.d. 10. Lactulose 30 cc p.o. t.i.d. 11. Neurontin 300 mg p.o. at bedtime. 12. Lasix 40 mg daily. 13. Folic acid 1 mg daily. 14. Lexapro 10 mg p.o. daily. 15. EpiPen 1 injection as needed for allergic reaction. 16. B12 500 mcg p.o. daily. 17. Ventolin 2 puffs inhaled every 4 hours as needed. 18. Tylenol 650 mg every 8 hours as needed for pain. ALLERGIES TO MEDICATIONS: Include BEES, ATIVAN, and ZOLOFT. FAMILY HISTORY: His mother had a history of a stroke, has . Father is alive at the age of 91 and according to him, is healthy. SOCIAL HISTORY: He has been smoking occasionally. He said he had 2 cigarettes yesterday and 1 cigarette today. He most recently did drink 2 beers yesterday. Surrogate decision maker is his sister, Cassandra. REVIEW OF SYSTEMS: There is no documented fever. He denied having any significant weight change. There is no double vision. He denies having any ear discharge. There is no rhinorrhea. He denies having any sore throat. There was no thyroid enlargement. He does admit to having chest pain per my HPI. He denies having any orthopnea. There is no nocturnal dyspnea. He denies having any abdominal pain. There has been no nausea, no vomiting. There has been no dysuria. There has been no frequency. No seizure, no loss of consciousness. No pruritus and no skin ulcerations. Review of 14 systems completed, all others negative. PHYSICAL EXAMINATION GENERAL: At this time, Mr. Mata is a chronically ill-appearing 63-year-old male patient. He is sitting in the ED stretcher. He does not appear to be in any acute distress. VITAL SIGNS: Blood pressure 103/52, pulse 68, respirations 18, O2 sat 95%, temperature 98.4. HEENT: Head: Atraumatic and normocephalic. Eyes: EOMs intact. Sclerae anicteric and not pale. Throat: Oral mucosa appears to be moist. No oropharyngeal erythema. NECK: Supple. LUNGS: Clear to auscultation. No wheezes, rales, rhonchi. HEART: Sounds S1, S2. He had a regular rate and rhythm. There were no murmurs , rubs, or gallops. ABDOMEN: Soft, flat, nontender. Bowel sounds present. He does have an umbilical hernia. He does have moderate amount of ascites, but no tenderness on exam. EXTREMITIES: Pulses were 2+ throughout. He is moving all 4 extremities with 5/ 5 strength. NEUROLOGICAL: He is actually awake now. He is alert to self, place, and time. He is somewhat drowsy. His cell technician were equal. Tongue was midline. He had no gross focal deficits. SKIN: Intact. He does have a small hematoma noted just below his left scapula. DIAGNOSTIC STUDIES/LAB DATA: His labs today are revealing a WBC of 5.7, RBC of 3.33, hemoglobin 10.1, which is right near his baseline, hematocrit of 31, platelet count of 171. Sodium 137, potassium 4.7, chloride of 103, bicarb 26, BUN 16, creatinine 1.26, glucose 151. Lactic 0.6. Calcium 9.2. Total mag 2.0. Total bili 3.8, his AST was 36, ALT 14, his alk phos 141. Ammonia 135. CK 100. Troponin 0. TSH normal. Toxicology negative. He had multiple imaging here in the ED starting out EKG, showed a normal sinus rhythm, rate of 63, he had no ST elevations or T wave inversions noted. When reviewed to the previous EKG, it is similar. He had a brain CT obtained today, which showed no acute intracranial pathology, stable bifrontal encephalomalacia. He had ribs with chest x-ray, impression: Fractures of the left 6th through 9th ribs without appreciable pneumothorax. Cervical spine CT was obtained today, which revealed degenerative disk disease and osteoarthritis. There is mild narrowing of the central canal at C5-6, C6-7 with multilevel neuroforaminal narrowing as described below. No acute osseous injury of the cervical spine. Chest CT obtained today showed acute fractures of the left 6th through 11th ribs, subacute to chronic appearing fractures of the 10th and 11th ribs, no appreciable pneumothorax, trace left pleural effusion, a small amount of perihepatic ascites. Old medical records were reviewed. ASSESSMENT AND PLAN: Mr. Mata is a 63-year-old male patient coming in to the ED today with complaints of mechanical fall done on last 08/23/18. Since then, he had been having intermittent and significant pain with taking deep breaths on the left side. He came in to the ED today. He was evaluated, found to have rib fractures. He will be admitted under observation status for: 1. Left rib fractures. At this point, we will continue supportive care, p.r.n. tramadol, and Lidoderm patch. They are nondisplaced. There are no signs of pneumothorax. We will continue to monitor. 2. History of liver cirrhosis, now with hepatic encephalopathy. He does have hepatic encephalopathy that is mild his previous stays here. He typically receives his lactulose at 30 cc p.o. 4 times a day. He states he has only been taking the lactulose once or twice a day. He has a known history of noncompliance with this. So, I am going to start out with 15 cc t.i.d. as he has been receptive to this in the past and we will continue to follow him. If it worsens, I certainly will insert NG tube or do these via rectal route or increase the dose. We will repeat his ammonia tomorrow and we will continue to follow. We will continue propranolol, his Aldactone and Lasix. He does not appear to be decompensated. 3. History of subdural hematoma. Follow with PCP. It is not active issue currently. CT brain today was negative. 4. Hypertension. Continue meds as prescribed. 5. Asthma. His lungs are clear. We will certainly put him on a p.r.n. albuterol. 6. Depression. Continue supportive care. 7. History of seizures. Continue Keppra and seizure precautions. 8. History of cerebrovascular accident. Continue with secondary stroke prevention. 9. DVT prophylaxis. I will place him on heparin subcu. 10. Code status. Full code. 11. Fluids, electrolytes, and nutrition. He can have a low protein diet. TIME SPENT: Time spent on the admission was 60 minutes, greater than half the time spent [id number] with the patient obtaining my history and physical; other half time spent going over the plan of care with the patient and implementing plan of care. I did discuss the plan of care with my attending, Dr. Walden; she is in agreement. CRAIG ANDRADE, DARCI [id number]/CPS #: [id number] MARILUZ
[2018-08-28] MEDS: Heparin VIAL(*) 5000 UNITS/ML VIAL (FIVE THOUSAND) SUBCUT SCH (21:03)
[2018-08-28] MEDS: Gabapentin CAP(*) 300 MG PO SCH (21:04)
[2018-08-28] MEDS: levETIRAcetam TAB* 500 MG PO SCH (21:05)
[2018-08-28] MEDS: Tamsulosin CAP* 0.4 MG PO SCH (21:05)
[2018-08-28] MEDS: RiFAXimin* 550 MG TAB PO SCH (21:06)
[2018-08-28] MEDS: Magnesium Oxide TAB* 400 MG PO SCH (21:06)
[2018-08-28] MEDS: Lactulose* 15 ML UDC PO SCH (21:07)
[2018-08-28] MEDS: Lidocaine Patch REMOVE* 1 NOTE MISC SCH (21:08)
[2018-08-29] MEDS: Heparin VIAL(*) 5000 UNITS/ML VIAL (FIVE THOUSAND) SUBCUT SCH ×3 (05:23→23:44)
[2018-08-29 06:22] LABS: ABS Basophils 0 10^3/ul (0-0.2); ABS Eosinophils 0.2 10^3/ul (0-0.6); ABS Lymphocytes 0.5 10^3/ul (1.0-4.8); ABS Monocytes 0.3 10^3/ul (0-0.8); ABS Neutrophils 4.1 10^3/ul (1.5-7.7); ABS Nucleated RBC 0 10^3/ul; Eosinophil % 4.8 % (0-6); Hematocrit 28 % (42-52); Lymphocyte % 10.2 % (25-47); Mean Corpuscular HGB Conc 33 g/dl (31-36); Mean Corpuscular Hemoglobin 31 pg (27-31); Mean Corpuscular Volume 93 fL (80-94); Nucleated Red Blood Cells % 0.1; Platelet Count 115 10^3/ul (150-450); Red Blood Count 2.94 10^6/ul (4.00-5.40); Red Cell Distribution Width 22 % (10.5-15); White Blood Count 5.2 10^3/ul (3.5-10.8)
[2018-08-29 06:31] LABS: INR 1.38 (0.77-1.02)
[2018-08-29] MEDS: Furosemide TAB* 40 MG PO SCH (07:59)
[2018-08-29] MEDS: CMC: Escitalopram (NF) 10 MG TAB PO SCH (07:59)
[2018-08-29] MEDS: Folic Acid TAB* 1 MG PO SCH (07:59)
[2018-08-29] MEDS: Thiamine TAB* 100 MG TAB PO SCH (07:59)
[2018-08-29] MEDS: RiFAXimin* 550 MG TAB PO SCH ×2 (07:59→20:44)
[2018-08-29] MEDS: traMADol TAB* 50 MG PO PRN ×2 (07:59→17:47)
[2018-08-29] MEDS: Omeprazole CAP* 20 MG PO SCH (07:59)
[2018-08-29] MEDS: Magnesium Oxide TAB* 400 MG PO SCH ×2 (08:00→20:32)
[2018-08-29] MEDS: levETIRAcetam TAB* 500 MG PO SCH ×2 (08:00→20:32)
[2018-08-29] MEDS: Lactulose* 15 ML UDC PO SCH ×4 (08:00→20:33)
[2018-08-29] MEDS: Lidocaine PATCH 5%* 1 PATCH TRANSDERM SCH (08:00)
[2018-08-29] MEDS: Propranolol TAB* 10 MG PO SCH (08:00)
[2018-08-29] MEDS: Spironolactone TAB* 25 MG PO SCH (08:00)
[2018-08-29] MEDS: Acetaminophen TAB* 325 MG PO PRN (12:49)
--- NOTE | 2018-08-29 14:21 | PN ---
Subjective Date of Service: 08/29/18 Interval History: Pt seen and examined. Meds and labs reviewed. CC: Left sided chest pain, worse on movement and deep inspiration ROS: Denied WILSON/dizziness, F/C, N/V, CP, SOB, increased cough, sputum production , abd pain, diarrhea, constipation, dysuria, myalgias, arthralgias, throat pain , and new skin lesions. The rest of the 14 point ROS are unremarkable. PHYSICAL EXAM: GEN APPEARANCE: Awake, not in acute distress, confused, but oriented x 3 HEENT: NC/AT, PERRLA, moist oral mucosa, (-) throat erythema NECK: Soft, supple, (-) cervical LAD, (-)JVD HEART: S1S2 WNL, RRR, No MRG CHEST: CTA, BL, GAE, No W/R/R ABD: Soft, ND/NT, NABS 4x Q, (+)umbilical hernia EXT: No C/C/E SKIN: Warm to touch PSYCH: No active psychosis, hallucinations, depression, SI/HI NEURO: Confused, but oriented x 3, (+)Asterexis Objective Active Medications: Acetaminophen (Tylenol Tab*) 650 mg PO Q6H PRN PRN Reason: Pain/WILSON Last Admin: 08/29/18 12:49 Dose: 650 mg Albuterol (Ventolin Hfa Inhaler*) 2 puff INH Q4H PRN PRN Reason: SHORTNESS OF BREATH Albuterol (Ventolin 2.5 Mg/3 Ml Neb.Debbie*) 2.5 mg INH Q2H PRN PRN Reason: SOB/WHEEZING Escitalopram Oxalate (Lexapro (Nf)) 10 mg PO DAILY [facility] Last Admin: 08/29/18 07:59 Dose: 10 mg Folic Acid (Folvite Tab*) 1 mg PO DAILY [facility] Last Admin: 08/29/18 07:59 Dose: 1 mg Furosemide (Lasix Tab*) 40 mg PO DAILY [facility] Last Admin: 08/29/18 07:59 Dose: 40 mg Gabapentin (Neurontin Cap(*)) 300 mg PO BEDTIME [facility] Last Admin: 08/28/18 21:04 Dose: 300 mg Heparin Sodium (Porcine) (Heparin Vial(*)) 5,000 units SUBCUT Q12H [facility] Last Admin: 08/29/18 10:37 Dose: 5,000 units Lactulose (Lactulose*) 45 ml PO QID [facility] Levetiracetam (Keppra Tab*) 500 mg PO BID [facility] Last Admin: 08/29/18 08:00 Dose: 500 mg Lidocaine (Lidoderm 5% Patch*) 1 patch TRANSDERM DAILY [facility] Last Admin: 08/29/18 08:00 Dose: 1 patch Magnesium Oxide (Magox 400 Tab*) 400 mg PO BID [facility] Last Admin: 08/29/18 08:00 Dose: 400 mg Omeprazole (Prilosec Cap*) 20 mg PO DAILY@0730 [facility] Last Admin: 08/29/18 07:59 Dose: 20 mg Ondansetron HCl (Zofran Inj*) 4 mg IV Q6H PRN PRN Reason: NAUSEA Last Admin: 08/28/18 19:52 Dose: 4 mg Pharmacy Profile Note (Lidocaine Patch Remove*) 1 note N/A 2100 [facility] Last Admin: 08/28/18 21:08 Dose: 1 note Propranolol HCl (Inderal Tab*) 10 mg PO DAILY [facility] Last Admin: 08/29/18 08:00 Dose: 10 mg Rifaximin (Xifaxan*) 550 mg PO BID [facility] Last Admin: 08/29/18 07:59 Dose: 550 mg Spironolactone (Aldactone Tab*) 100 mg PO DAILY [facility] Last Admin: 08/29/18 08:00 Dose: 100 mg Tamsulosin HCl (Flomax Cap*) 0.4 mg PO BEDTIME [facility] Last Admin: 08/28/18 21:05 Dose: 0.4 mg Thiamine HCl (Vitamin B-1 Tab*) 100 mg PO DAILY [facility] Last Admin: 08/29/18 07:59 Dose: 100 mg Tramadol HCl (Ultram*) 50 mg PO Q8H PRN PRN Reason: PAIN Last Admin: 08/29/18 07:59 Dose: 50 mg Vital Signs - 8 hr 08/29/18 08/29/18 08/29/18 07:28 07:59 10:00 Temperature 97.3 F Pulse Rate 83 Respiratory 16 22 20 Rate Blood Pressure 127/56 (mmHg) O2 Sat by Pulse 98 Oximetry 08/29/18 11:40 Temperature 97.6 F Pulse Rate 84 Respiratory 22 Rate Blood Pressure 108/53 (mmHg) O2 Sat by Pulse 98 Oximetry Oxygen Devices in Use Now: None Result Diagrams: 08/29/18 06:15 08/29/18 06:15 Assess/Plan/Problems-Billing Assessment: - Patient Problems (1) Left rib fracture Current Visit: Yes Status: Acute Code(s): S22.32XA - FRACTURE OF ONE RIB, LEFT SIDE, INIT FOR CLOS FX SNOMED Code(s): 87192893 Comment: -Fx of left 6th-9th ribs -Will add Tylenol PRN pain regimen---not to exceed 2g/day given cirrhosis -Continue Lidocaine patch, Gabapentin, and PRN Tramadol -For incentive spirometry (2) Hepatic encephalopathy Current Visit: No Status: Acute Code(s): K72.90 - HEPATIC FAILURE, UNSPECIFIED WITHOUT COMA SNOMED Code(s): 99599151 Comment: -Continue Xifaxan -Will increase Lactulose as ordered -Continue to follow ammonia levels until levels <2xULN (3) Alcoholic cirrhosis of liver with ascites Current Visit: No Status: Acute Code(s): K70.31 - ALCOHOLIC CIRRHOSIS OF LIVER WITH ASCITES SNOMED Code(s): 037831525 Comment: -MELD = 15 from best available data -Will continue to follow (4) Ascites Current Visit: No Status: Acute Priority: High Onset Date: 11/02/14 Code (s): R18.8 - OTHER ASCITES SNOMED Code(s): 325945578 Comment: -Continue Spirinolactone and Lasix -Will D/C low protein diet -Place pt on low Sodium diet (5) Hypertension Current Visit: No Status: Chronic Priority: Medium Code(s): I10 - ESSENTIAL (PRIMARY) HYPERTENSION SNOMED Code(s): 06958661 Comment: -Well-controlled -Given portal HTN, continue propranolol along with diuretics (6) DVT prophylaxis Current Visit: No Status: Acute Code(s): JHW0017 - SNOMED Code(s): 875107024 Comment: -Will decrease Heparin SQ to q12H given cirrhosis, with mildly elevated INR, and history of SDH Status and Disposition: -For PT eval
[2018-08-29] MEDS: Tamsulosin CAP* 0.4 MG PO SCH (20:32)
[2018-08-29] MEDS: Gabapentin CAP(*) 300 MG PO SCH (20:32)
[2018-08-29] MEDS: Lidocaine Patch REMOVE* 1 NOTE MISC SCH (20:43)
[2018-08-29] MEDS: Ondansetron INJ* 2 MG/ML VIAL IV PRN (23:44)
[2018-08-30 08:03] LABS: Hematocrit 27 % (42-52); Hemoglobin 8.6 g/dl (14.0-18.0); Mean Corpuscular HGB Conc 32 g/dl (31-36); Mean Corpuscular Hemoglobin 30 pg (27-31); Mean Corpuscular Volume 93 fL (80-94); Red Blood Count 2.85 10^6/ul (4.00-5.40); Red Cell Distribution Width 22 % (10.5-15); White Blood Count 5.1 10^3/ul (3.5-10.8)
[2018-08-30 08:06] LABS: INR 1.44 (0.77-1.02)
[2018-08-30 08:17] LABS: EGFR Non-African American 80.6 (>60)
[2018-08-30 08:27] LABS: ABS Basophils 0 10^3/ul (0-0.2); ABS Eosinophils 0.4 10^3/ul (0-0.6); ABS Lymphocytes 1.2 10^3/ul (1.0-4.8); ABS Monocytes 0.5 10^3/ul (0-0.8); ABS Neutrophils 2.9 10^3/ul (1.5-7.7); ABS Nucleated RBC 0 10^3/ul; Eosinophil % 8.3 % (0-6); Lymphocyte % 22.6 % (25-47); Mean Platelet Volume 7.4 fL (7.4-10.4); Nucleated Red Blood Cells % 0.1; Platelet Count 85 10^3/ul (150-450)
[2018-08-30] MEDS: levETIRAcetam TAB* 500 MG PO SCH ×2 (10:21→22:53)
[2018-08-30] MEDS: RiFAXimin* 550 MG TAB PO SCH (10:21)
[2018-08-30] MEDS: Thiamine TAB* 100 MG TAB PO SCH (10:21)
[2018-08-30] MEDS: Propranolol TAB* 10 MG PO SCH (10:21)
[2018-08-30] MEDS: CMC: Escitalopram (NF) 10 MG TAB PO SCH (10:21)
[2018-08-30] MEDS: Furosemide TAB* 40 MG PO SCH (10:21)
[2018-08-30] MEDS: Folic Acid TAB* 1 MG PO SCH (10:21)
[2018-08-30] MEDS: Spironolactone TAB* 25 MG PO SCH (10:21)
[2018-08-30] MEDS: Omeprazole CAP* 20 MG PO SCH (10:21)
[2018-08-30] MEDS: Magnesium Oxide TAB* 400 MG PO SCH ×2 (10:21→22:53)
[2018-08-30] MEDS: Heparin VIAL(*) 5000 UNITS/ML VIAL (FIVE THOUSAND) SUBCUT SCH ×2 (10:21→22:52)
[2018-08-30] MEDS: Lidocaine PATCH 5%* 1 PATCH TRANSDERM SCH (10:22)
[2018-08-30] MEDS: traMADol TAB* 50 MG PO PRN ×2 (10:24→17:38)
[2018-08-30] MEDS: Lactulose* 15 ML UDC PO SCH ×4 (11:56→22:59)
[2018-08-30] MEDS: oxyCODONE TAB* 5 MG TAB PO PRN ×2 (12:39→22:55)
--- NOTE | 2018-08-30 14:33 | PN ---
Subjective Date of Service: 08/30/18 Interval History: Pt seen and examined. Meds and labs reviewed. CC: Left sided chest pain, worse on movement and deep inspiration ROS: Denied WILSON/dizziness, F/C, N/V, CP, SOB, increased cough, sputum production , abd pain, diarrhea, constipation, dysuria, myalgias, arthralgias, throat pain , and new skin lesions. The rest of the 14 point ROS are unremarkable. PHYSICAL EXAM: GEN APPEARANCE: Awake, not in acute distress, improving confusion, oriented x 3 HEENT: NC/AT, PERRLA, moist oral mucosa, (-) throat erythema NECK: Soft, supple, (-) cervical LAD, (-)JVD HEART: S1S2 WNL, RRR, No MRG CHEST: CTA, BL, GAE, No W/R/R ABD: Soft, ND/NT, NABS 4x Q, (+)umbilical hernia EXT: No C/C/E SKIN: Warm to touch PSYCH: No active psychosis, hallucinations, depression, SI/HI NEURO: Confused, but oriented x 3, (+)Asterexis Objective Active Medications: Acetaminophen (Tylenol Tab*) 650 mg PO Q6H PRN PRN Reason: Pain/WILSON Last Admin: 08/29/18 12:49 Dose: 650 mg Albuterol (Ventolin Hfa Inhaler*) 2 puff INH Q4H PRN PRN Reason: SHORTNESS OF BREATH Albuterol (Ventolin 2.5 Mg/3 Ml Neb.Debbie*) 2.5 mg INH Q2H PRN PRN Reason: SOB/WHEEZING Escitalopram Oxalate (Lexapro (Nf)) 10 mg PO DAILY [facility] Last Admin: 08/30/18 10:21 Dose: 10 mg Folic Acid (Folvite Tab*) 1 mg PO DAILY [facility] Last Admin: 08/30/18 10:21 Dose: 1 mg Furosemide (Lasix Tab*) 40 mg PO DAILY [facility] Last Admin: 08/30/18 10:21 Dose: 40 mg Gabapentin (Neurontin Cap(*)) 300 mg PO BEDTIME [facility] Last Admin: 08/29/18 20:32 Dose: 300 mg Heparin Sodium (Porcine) (Heparin Vial(*)) 5,000 units SUBCUT Q12H [facility] Last Admin: 08/30/18 10:21 Dose: 5,000 units Lactulose (Lactulose*) 45 ml PO QID [facility] Last Admin: 08/30/18 12:33 Dose: 30 ml Levetiracetam (Keppra Tab*) 500 mg PO BID [facility] Last Admin: 08/30/18 10:21 Dose: 500 mg Lidocaine (Lidoderm 5% Patch*) 1 patch TRANSDERM DAILY [facility] Last Admin: 08/30/18 10:22 Dose: 1 patch Magnesium Oxide (Magox 400 Tab*) 400 mg PO BID [facility] Last Admin: 08/30/18 10:21 Dose: 400 mg Omeprazole (Prilosec Cap*) 20 mg PO DAILY@0730 [facility] Last Admin: 08/30/18 10:21 Dose: 20 mg Ondansetron HCl (Zofran Inj*) 4 mg IV Q6H PRN PRN Reason: NAUSEA Last Admin: 08/29/18 23:44 Dose: 4 mg Oxycodone HCl (Roxycodone Tab*) 5 mg PO Q8H PRN PRN Reason: Breakthrough pain Last Admin: 08/30/18 12:39 Dose: 5 mg Pharmacy Profile Note (Lidocaine Patch Remove*) 1 note N/A 2100 [facility] Last Admin: 08/29/18 20:43 Dose: 1 note Propranolol HCl (Inderal Tab*) 10 mg PO DAILY [facility] Last Admin: 08/30/18 10:21 Dose: 10 mg Rifaximin (Xifaxan*) 550 mg PO BID [facility] Last Admin: 08/30/18 10:21 Dose: 550 mg Spironolactone (Aldactone Tab*) 100 mg PO DAILY [facility] Last Admin: 08/30/18 10:21 Dose: 100 mg Tamsulosin HCl (Flomax Cap*) 0.4 mg PO BEDTIME [facility] Last Admin: 08/29/18 20:32 Dose: 0.4 mg Thiamine HCl (Vitamin B-1 Tab*) 100 mg PO DAILY [facility] Last Admin: 08/30/18 10:21 Dose: 100 mg Tramadol HCl (Ultram*) 50 mg PO Q6H PRN PRN Reason: PAIN Vital Signs - 8 hr 08/30/18 08/30/18 08/30/18 08:56 10:00 10:24 Temperature 97.3 F Pulse Rate 72 Respiratory 16 16 16 Rate Blood Pressure 115/56 (mmHg) O2 Sat by Pulse 100 Oximetry 08/30/18 12:39 Temperature Pulse Rate Respiratory 16 Rate Blood Pressure (mmHg) O2 Sat by Pulse Oximetry Oxygen Devices in Use Now: None, Nasal Cannula Result Diagrams: 08/30/18 07:52 08/30/18 07:52 Assess/Plan/Problems-Billing Assessment: - Patient Problems (1) Left rib fracture Current Visit: Yes Status: Acute Code(s): S22.32XA - FRACTURE OF ONE RIB, LEFT SIDE, INIT FOR CLOS FX SNOMED Code(s): 74355326 Comment: -Fx of left 6th-9th ribs -Continue Lidocaine patch, Gabapentin, and PRN Tylenol -Will increase PRN frequency of Tramadol and will place pt on oxycodone PRN with appropriate holding orders -Encourage incentive spirometry (2) Hepatic encephalopathy Current Visit: No Status: Acute Code(s): K72.90 - HEPATIC FAILURE, UNSPECIFIED WITHOUT COMA SNOMED Code(s): 62304147 Comment: -Continue Xifaxan -Will increase Lactulose as ordered -Ammonia levels improved and <2xULN, therefore will D/C daily ammonia levels (3) Alcoholic cirrhosis of liver with ascites Current Visit: No Status: Acute Code(s): K70.31 - ALCOHOLIC CIRRHOSIS OF LIVER WITH ASCITES SNOMED Code(s): 742428720 Comment: -MELD = 15 from best available data -Will continue to follow (4) Ascites Current Visit: No Status: Acute Priority: High Onset Date: 11/02/14 Code (s): R18.8 - OTHER ASCITES SNOMED Code(s): 037367548 Comment: -Continue Spirinolactone and Lasix -Continue low Sodium diet (5) Hypertension Current Visit: No Status: Chronic Priority: Medium Code(s): I10 - ESSENTIAL (PRIMARY) HYPERTENSION SNOMED Code(s): 34695412 Comment: -Well-controlled -Given portal HTN, continue propranolol along with diuretics (6) DVT prophylaxis Current Visit: No Status: Acute Code(s): SNB4620 - SNOMED Code(s): 301863319 Comment: -Continue Heparin SQq12H Status and Disposition: -Continue PT and will await for any future reccs
[2018-08-30] MEDS: Gabapentin CAP(*) 300 MG PO SCH (22:52)
[2018-08-30] MEDS: Lidocaine Patch REMOVE* 1 NOTE MISC SCH (22:52)
[2018-08-30] MEDS: Tamsulosin CAP* 0.4 MG PO SCH (22:53)
[2018-08-31] MEDS: RiFAXimin* 550 MG TAB PO SCH ×3 (00:07→22:02)
[2018-08-31 05:01] LABS: ABS Basophils 0 10^3/ul (0-0.2); ABS Eosinophils 0.5 10^3/ul (0-0.6); ABS Lymphocytes 1.4 10^3/ul (1.0-4.8); ABS Monocytes 0.6 10^3/ul (0-0.8); ABS Neutrophils 4.9 10^3/ul (1.5-7.7); ABS Nucleated RBC 0 10^3/ul; Eosinophil % 6.9 % (0-6); Hematocrit 26 % (42-52); Hemoglobin 8.3 g/dl (14.0-18.0); Lymphocyte % 18.4 % (25-47); Mean Corpuscular HGB Conc 32 g/dl (31-36); Mean Corpuscular Hemoglobin 31 pg (27-31); Mean Corpuscular Volume 94 fL (80-94); Mean Platelet Volume 7.5 fL (7.4-10.4); Nucleated Red Blood Cells % 0.1; Platelet Count 78 10^3/ul (150-450); Red Blood Count 2.72 10^6/ul (4.00-5.40); Red Cell Distribution Width 21 % (10.5-15); White Blood Count 7.4 10^3/ul (3.5-10.8)
[2018-08-31 05:04] LABS: INR 1.49 (0.77-1.02)
[2018-08-31] MEDS: Magnesium Oxide TAB* 400 MG PO SCH ×2 (07:41→22:02)
[2018-08-31] MEDS: Omeprazole CAP* 20 MG PO SCH (07:41)
[2018-08-31] MEDS: Thiamine TAB* 100 MG TAB PO SCH (07:41)
[2018-08-31] MEDS: Furosemide TAB* 40 MG PO SCH (07:41)
[2018-08-31] MEDS: Spironolactone TAB* 25 MG PO SCH (07:41)
[2018-08-31] MEDS: CMC: Escitalopram (NF) 10 MG TAB PO SCH (07:41)
[2018-08-31] MEDS: Folic Acid TAB* 1 MG PO SCH (07:41)
[2018-08-31] MEDS: levETIRAcetam TAB* 500 MG PO SCH ×2 (07:41→22:04)
[2018-08-31] MEDS: Propranolol TAB* 10 MG PO SCH (07:41)
[2018-08-31] MEDS: Lidocaine PATCH 5%* 1 PATCH TRANSDERM SCH (07:42)
[2018-08-31] MEDS: Lactulose* 15 ML UDC PO SCH ×4 (07:49→22:00)
[2018-08-31] MEDS: oxyCODONE TAB* 5 MG TAB PO PRN (12:35)
--- NOTE | 2018-08-31 15:46 | PN ---
Subjective Date of Service: 08/31/18 Interval History: Pt seen and examined. Meds and labs reviewed. CC: Improved CP ROS: Denied WILOSN/dizziness, F/C, N/V, SOB, increased cough, sputum production, abd pain, diarrhea, constipation, dysuria, myalgias, arthralgias, throat pain, and new skin lesions. The rest of the 14 point ROS are unremarkable. PHYSICAL EXAM: GEN APPEARANCE: Awake, not in acute distress, oriented x 3 HEENT: NC/AT, PERRLA, moist oral mucosa, (-) throat erythema NECK: Soft, supple, (-) cervical LAD, (-)JVD HEART: S1S2 WNL, RRR, No MRG CHEST: CTA, BL, GAE, No W/R/R ABD: Soft, ND/NT, NABS 4x Q, (+)umbilical hernia EXT: No C/C/E SKIN: Warm to touch PSYCH: No active psychosis, hallucinations, depression, SI/HI NEURO: Confused, but oriented x 3, (+)Asterexis, improved Objective Active Medications: Acetaminophen (Tylenol Tab*) 650 mg PO Q6H PRN PRN Reason: Pain/WILSON Last Admin: 08/29/18 12:49 Dose: 650 mg Albuterol (Ventolin Hfa Inhaler*) 2 puff INH Q4H PRN PRN Reason: SHORTNESS OF BREATH Albuterol (Ventolin 2.5 Mg/3 Ml Neb.Debbie*) 2.5 mg INH Q2H PRN PRN Reason: SOB/WHEEZING Escitalopram Oxalate (Lexapro (Nf)) 10 mg PO DAILY [facility] Last Admin: 08/31/18 07:41 Dose: 10 mg Folic Acid (Folvite Tab*) 1 mg PO DAILY [facility] Last Admin: 08/31/18 07:41 Dose: 1 mg Furosemide (Lasix Tab*) 40 mg PO DAILY [facility] Last Admin: 08/31/18 07:41 Dose: 40 mg Gabapentin (Neurontin Cap(*)) 300 mg PO BEDTIME [facility] Last Admin: 08/30/18 22:52 Dose: 300 mg Lactulose (Lactulose*) 45 ml PO QID [facility] Last Admin: 08/31/18 12:36 Dose: 30 ml Levetiracetam (Keppra Tab*) 500 mg PO BID [facility] Last Admin: 08/31/18 07:41 Dose: 500 mg Lidocaine (Lidoderm 5% Patch*) 1 patch TRANSDERM DAILY [facility] Last Admin: 08/31/18 07:42 Dose: 1 patch Magnesium Oxide (Magox 400 Tab*) 400 mg PO BID [facility] Last Admin: 08/31/18 07:41 Dose: 400 mg Omeprazole (Prilosec Cap*) 20 mg PO DAILY@0730 [facility] Last Admin: 08/31/18 07:41 Dose: 20 mg Ondansetron HCl (Zofran Inj*) 4 mg IV Q6H PRN PRN Reason: NAUSEA Last Admin: 08/29/18 23:44 Dose: 4 mg Oxycodone HCl (Roxycodone Tab*) 5 mg PO Q8H PRN PRN Reason: Breakthrough pain Last Admin: 08/31/18 12:35 Dose: 5 mg Pharmacy Profile Note (Lidocaine Patch Remove*) 1 note N/A 2100 [facility] Last Admin: 08/30/18 22:52 Dose: 1 note Propranolol HCl (Inderal Tab*) 10 mg PO DAILY [facility] Last Admin: 08/31/18 07:41 Dose: 10 mg Rifaximin (Xifaxan*) 550 mg PO BID [facility] Last Admin: 08/31/18 07:41 Dose: 550 mg Spironolactone (Aldactone Tab*) 100 mg PO DAILY [facility] Last Admin: 08/31/18 07:41 Dose: 100 mg Tamsulosin HCl (Flomax Cap*) 0.4 mg PO BEDTIME [facility] Last Admin: 08/30/18 22:53 Dose: 0.4 mg Thiamine HCl (Vitamin B-1 Tab*) 100 mg PO DAILY [facility] Last Admin: 08/31/18 07:41 Dose: 100 mg Tramadol HCl (Ultram*) 50 mg PO Q6H PRN PRN Reason: PAIN Last Admin: 08/30/18 17:38 Dose: 50 mg Vital Signs - 8 hr 08/31/18 08/31/18 08/31/18 07:52 12:35 15:13 Respiratory 16 18 16 Rate Oxygen Devices in Use Now: Nasal Cannula Result Diagrams: 08/31/18 04:43 08/30/18 07:52 Assess/Plan/Problems-Billing Assessment: - Patient Problems (1) Left rib fracture Current Visit: Yes Status: Acute Code(s): S22.32XA - FRACTURE OF ONE RIB, LEFT SIDE, INIT FOR CLOS FX SNOMED Code(s): 71588330 Comment: -Fx of left 6th-9th ribs -Continue Lidocaine patch, Gabapentin, and PRN Tylenol -Continue PRN Tramadol oxycodone with appropriate holding orders -Encourage incentive spirometry (2) Hepatic encephalopathy Current Visit: No Status: Acute Code(s): K72.90 - HEPATIC FAILURE, UNSPECIFIED WITHOUT COMA SNOMED Code(s): 75792592 Comment: -Continue Xifaxan -Will increase Lactulose as ordered -Recheck ammonia levels in AM (3) Alcoholic cirrhosis of liver with ascites Current Visit: No Status: Acute Code(s): K70.31 - ALCOHOLIC CIRRHOSIS OF LIVER WITH ASCITES SNOMED Code(s): 247121002 Comment: -MELD = 15 from best available data -Will continue to follow (4) Ascites Current Visit: No Status: Acute Priority: High Onset Date: 11/02/14 Code (s): R18.8 - OTHER ASCITES SNOMED Code(s): 535161971 Comment: -Continue Spirinolactone and Lasix -Continue low Sodium diet (5) Hypertension Current Visit: No Status: Chronic Priority: Medium Code(s): I10 - ESSENTIAL (PRIMARY) HYPERTENSION SNOMED Code(s): 62010361 Comment: -Well-controlled -Given portal HTN, continue propranolol along with diuretics (6) DVT prophylaxis Current Visit: No Status: Acute Code(s): QNQ4055 - SNOMED Code(s): 481333640 Comment: -Continue Heparin SQq12H Status and Disposition: -Continue PT and will await for any future reccs -Possible D/C in 1-2 days
[2018-08-31] MEDS: traMADol TAB* 50 MG PO PRN (22:03)
[2018-08-31] MEDS: Gabapentin CAP(*) 300 MG PO SCH (22:03)
[2018-08-31] MEDS: Lidocaine Patch REMOVE* 1 NOTE MISC SCH (22:04)
[2018-08-31] MEDS: Tamsulosin CAP* 0.4 MG PO SCH (22:04)
[2018-09-01] MEDS: oxyCODONE TAB* 5 MG TAB PO PRN (00:36)
[2018-09-01 05:27] LABS: ABS Basophils 0 10^3/ul (0-0.2); ABS Eosinophils 0.4 10^3/ul (0-0.6); ABS Lymphocytes 1.5 10^3/ul (1.0-4.8); ABS Monocytes 0.5 10^3/ul (0-0.8); ABS Neutrophils 2.7 10^3/ul (1.5-7.7); ABS Nucleated RBC 0 10^3/ul; Eosinophil % 8.2 % (0-6); Hematocrit 25 % (42-52); Hemoglobin 8.1 g/dl (14.0-18.0); Lymphocyte % 28.4 % (25-47); Mean Corpuscular HGB Conc 33 g/dl (31-36); Mean Corpuscular Hemoglobin 31 pg (27-31); Mean Corpuscular Volume 94 fL (80-94); Mean Platelet Volume 7.8 fL (7.4-10.4); Nucleated Red Blood Cells % 0.1; Platelet Count 78 10^3/ul (150-450); Red Blood Count 2.65 10^6/ul (4.00-5.40); Red Cell Distribution Width 22 % (10.5-15); White Blood Count 5.2 10^3/ul (3.5-10.8)
[2018-09-01 05:29] LABS: INR 1.42 (0.77-1.02)
[2018-09-01 05:42] LABS: EGFR Non-African American 99.7 (>60)
[2018-09-01] MEDS: Folic Acid TAB* 1 MG PO SCH (07:44)
[2018-09-01] MEDS: Omeprazole CAP* 20 MG PO SCH (07:44)
[2018-09-01] MEDS: CMC: Escitalopram (NF) 10 MG TAB PO SCH (07:44)
[2018-09-01] MEDS: Thiamine TAB* 100 MG TAB PO SCH (07:44)
[2018-09-01] MEDS: Propranolol TAB* 10 MG PO SCH (07:45)
[2018-09-01] MEDS: Spironolactone TAB* 25 MG PO SCH (07:45)
[2018-09-01] MEDS: Furosemide TAB* 40 MG PO SCH (07:45)
[2018-09-01] MEDS: levETIRAcetam TAB* 500 MG PO SCH ×2 (07:45→20:13)
[2018-09-01] MEDS: Magnesium Oxide TAB* 400 MG PO SCH ×2 (07:45→20:12)
[2018-09-01] MEDS: RiFAXimin* 550 MG TAB PO SCH ×2 (07:45→20:13)
[2018-09-01] MEDS: Lidocaine PATCH 5%* 1 PATCH TRANSDERM SCH (07:47)
[2018-09-01] MEDS: traMADol TAB* 50 MG PO PRN ×2 (07:50→20:11)
[2018-09-01] MEDS: Lactulose* 15 ML UDC PO SCH ×3 (07:51→17:44)
--- NOTE | 2018-09-01 14:05 | PN ---
Subjective Date of Service: 09/01/18 Interval History: Pt is feeling ok but he is sleepy and not really able to carry on an active conversation. He has been refusing his ordered dose of lactulose because he had 4 BMs the AM of 08/30/18. He also states he has pain in his ribs. His sister was present and states that she watches over him but is not around 100% of the time to make sure he is taking his meds as prescribed. Objective Active Medications: Acetaminophen (Tylenol Tab*) 650 mg PO Q6H PRN PRN Reason: Pain/WILSON Last Admin: 08/29/18 12:49 Dose: 650 mg Albuterol (Ventolin Hfa Inhaler*) 2 puff INH Q4H PRN PRN Reason: SHORTNESS OF BREATH Albuterol (Ventolin 2.5 Mg/3 Ml Neb.Debbie*) 2.5 mg INH Q2H PRN PRN Reason: SOB/WHEEZING Escitalopram Oxalate (Lexapro (Nf)) 10 mg PO DAILY REPLACED BY [facility] Last Admin: 09/01/18 07:44 Dose: 10 mg Folic Acid (Folvite Tab*) 1 mg PO DAILY [facility] Last Admin: 09/01/18 07:44 Dose: 1 mg Furosemide (Lasix Tab*) 40 mg PO DAILY [facility] Last Admin: 09/01/18 07:45 Dose: 40 mg Gabapentin (Neurontin Cap(*)) 300 mg PO BEDTIME [facility]PL[facility]ED BY [facility] Last Admin: 08/31/18 22:03 Dose: 300 mg Lactulose (Lactulose*) 45 ml PO QID [facility]PL[facility] BY [facility] Stop: 09/01/18 17:59 Last Admin: 09/01/18 12:36 Dose: 30 ml Lactulose (Lactulose*) 30 ml PO QID REPLACED BY [facility] Levetiracetam (Keppra Tab*) 500 mg PO BID [facility] Last Admin: 09/01/18 07:45 Dose: 500 mg Lidocaine (Lidoderm 5% Patch*) 1 patch TRANSDERM DAILY [facility] Last Admin: 09/01/18 07:47 Dose: 1 patch Magnesium Oxide (Magox 400 Tab*) 400 mg PO BID [facility] Last Admin: 09/01/18 07:45 Dose: 400 mg Omeprazole (Prilosec Cap*) 20 mg PO DAILY@0730 [facility]PL[facility] Last Admin: 09/01/18 07:44 Dose: 20 mg Ondansetron HCl (Zofran Inj*) 4 mg IV Q6H PRN PRN Reason: NAUSEA Last Admin: 08/29/18 23:44 Dose: 4 mg Pharmacy Profile Note (Lidocaine Patch Remove*) 1 note N/A 2100 [facility] Last Admin: 08/31/18 22:04 Dose: 1 note Propranolol HCl (Inderal Tab*) 10 mg PO DAILY [facility] Last Admin: 09/01/18 07:45 Dose: 10 mg Rifaximin (Xifaxan*) 550 mg PO BID [facility] Last Admin: 09/01/18 07:45 Dose: 550 mg Spironolactone (Aldactone Tab*) 100 mg PO DAILY [facility] Last Admin: 09/01/18 07:45 Dose: 100 mg Tamsulosin HCl (Flomax Cap*) 0.4 mg PO BEDTIME [facility]PL[facility]ED BY [facility] Last Admin: 08/31/18 22:04 Dose: 0.4 mg Thiamine HCl (Vitamin B-1 Tab*) 100 mg PO DAILY [facility] Last Admin: 09/01/18 07:44 Dose: 100 mg Tramadol HCl (Ultram*) 50 mg PO Q6H PRN PRN Reason: PAIN Last Admin: 09/01/18 07:50 Dose: 50 mg Vital Signs - 8 hr 09/01/18 09/01/18 09/01/18 07:30 07:43 07:50 Temperature 98.4 F Pulse Rate 83 Respiratory 16 16 Rate Blood Pressure 90/38 117/50 (mmHg) O2 Sat by Pulse 97 Oximetry 09/01/18 09/01/18 09/01/18 07:52 08:51 10:39 Temperature Pulse Rate Respiratory 18 16 Rate Blood Pressure (mmHg) O2 Sat by Pulse 96 Oximetry 09/01/18 11:58 Temperature 97.3 F Pulse Rate 73 Respiratory 16 Rate Blood Pressure 112/50 (mmHg) O2 Sat by Pulse 98 Oximetry Oxygen Devices in Use Now: Nasal Cannula Appearance: Middle aged male sitting up in bed, sleepy but able to answer some questions. In NAD. Eyes: - - mild scleral icterus Respiratory: Symmetrical Chest Expansion and Respiratory Effort, Clear to Auscultation Cardiovascular: NL Sounds; No Murmurs; No JVD, RRR, No Edema Abdominal: NL Sounds; No Tenderness; No Distention Extremities: No Clubbing, Cyanosis Skin: No Nodules or Sclerosis Neurological: Alert and Oriented x 3 Result Diagrams: 09/01/18 05:04 09/01/18 05:04 Assess/Plan/Problems-Billing Mr Mata is a 63 yo M who is well known to the hospitalist service from multiple prior hospitalizations for hepatic encephalopathy who presented to the ER after falling and sustaining several L sided rib fractures and developed hepatic encephalopathy. - Patient Problems (1) Left rib fracture Current Visit: Yes Status: Acute Code(s): S22.32XA - FRACTURE OF ONE RIB, LEFT SIDE, INIT FOR CLOS FX SNOMED Code(s): 58648550 Comment: Pt has fractures of the left 6th-9th ribs. Continue pain control with tramadol, gabapentin, tylenol and lidocaine patch. Encourage deep inspiration and OOB to chair. I do not think he will be able to manage going home and likely needs to go back to [facility]. (2) Hepatic encephalopathy Current Visit: Yes Status: Chronic Code(s): K72.90 - HEPATIC FAILURE, UNSPECIFIED WITHOUT COMA SNOMED Code(s): 16816876 Comment: Pt is sleepy and his ammonia level has increased. He did not have a BM yesterday and has not been taking the ordered amount of lactulose. I have encouraged the patient to take the dose as ordered and will monitor his level of alertness. (3) Alcoholic hepatitis Current Visit: Yes Status: Acute Code(s): K70.10 - ALCOHOLIC HEPATITIS WITHOUT ASCITES SNOMED Code(s): 837148778 Comment: Pt with likely alcoholic hepatitis. His LFTs remain elevated as does his bilirubin. The bilirubin level however has been trending down slowly. Monitor. (4) Anemia Current Visit: Yes Status: Chronic Code(s): D64.9 - ANEMIA, UNSPECIFIED SNOMED Code(s): 942794289 Comment: H/H down from admission but now at his baseline. Continue to monitor intermittently. (5) Alcohol abuse Current Visit: Yes Status: Chronic Code(s): F10.10 - ALCOHOL ABUSE, UNCOMPLICATED SNOMED Code(s): 48146915 Comment: No signs of withdrawal. Pt reportedly was drinking prior to this admission. (6) Cirrhosis Current Visit: Yes Status: Acute Comment: Pt with alcoholic cirrhosis. Continue supportive care. (7) DVT prophylaxis Current Visit: Yes Status: Acute Onset Date: 11/02/14 Code(s): HGV3125 - SNOMED Code(s): 378116039 Comment: start SQ heparin (8) Full code status Current Visit: Yes Status: Acute Onset Date: 11/02/14 Code(s): Z78.9 - OTHER SPECIFIED HEALTH STATUS SNOMED Code(s): 003736415 Comment: Status and Disposition: -Continue PT and will await for any future reccs -Possible D/C in 1-2 days
[2018-09-01] MEDS: Gabapentin CAP(*) 300 MG PO SCH (20:12)
[2018-09-01] MEDS: Tamsulosin CAP* 0.4 MG PO SCH (20:13)
[2018-09-01] MEDS: Lidocaine Patch REMOVE* 1 NOTE MISC SCH (20:16)
[2018-09-01] MEDS: Heparin VIAL(*) 5000 UNITS/ML VIAL (FIVE THOUSAND) SUBCUT SCH (22:22)
[2018-09-02 05:31] LABS: EGFR Non-African American 89.2 (>60)
[2018-09-02] MEDS: Heparin VIAL(*) 5000 UNITS/ML VIAL (FIVE THOUSAND) SUBCUT SCH ×3 (05:37→21:16)
[2018-09-02] MEDS: Omeprazole CAP* 20 MG PO SCH (10:46)
[2018-09-02] MEDS: Folic Acid TAB* 1 MG PO SCH (10:46)
[2018-09-02] MEDS: levETIRAcetam TAB* 500 MG PO SCH ×2 (10:46→21:13)
[2018-09-02] MEDS: Magnesium Oxide TAB* 400 MG PO SCH ×2 (10:46→21:13)
[2018-09-02] MEDS: Thiamine TAB* 100 MG TAB PO SCH (10:46)
[2018-09-02] MEDS: CMC: Escitalopram (NF) 10 MG TAB PO SCH (10:47)
[2018-09-02] MEDS: Lidocaine PATCH 5%* 1 PATCH TRANSDERM SCH (10:47)
[2018-09-02] MEDS: Furosemide TAB* 40 MG PO SCH (10:47)
[2018-09-02] MEDS: Spironolactone TAB* 25 MG PO SCH (10:47)
[2018-09-02] MEDS: RiFAXimin* 550 MG TAB PO SCH ×2 (10:48→21:16)
[2018-09-02] MEDS: Propranolol TAB* 10 MG PO SCH (10:48)
[2018-09-02] MEDS: traMADol TAB* 50 MG PO PRN ×2 (17:13→23:39)
--- NOTE | 2018-09-02 18:57 | PN ---
Subjective Date of Service: 09/02/18 Interval History: Pt is feeling ok. He has again refused doses of lactulose stating he was up all night having to be cleaned up. I explained that if he took his lactulose in the AM as ordered and had 3-4 loose stool before his evening dose he would not be up all night having BMs. He also states it is hard for him to make it to the commode quick enough and is therefore incontinent of stool. Objective Active Medications: Acetaminophen (Tylenol Tab*) 650 mg PO Q6H PRN PRN Reason: Pain/WILSON Last Admin: 08/29/18 12:49 Dose: 650 mg Albuterol (Ventolin Hfa Inhaler*) 2 puff INH Q4H PRN PRN Reason: SHORTNESS OF BREATH Albuterol (Ventolin 2.5 Mg/3 Ml Neb.Debbie*) 2.5 mg INH Q2H PRN PRN Reason: SOB/WHEEZING Escitalopram Oxalate (Lexapro (Nf)) 10 mg PO DAILY [facility] Last Admin: 09/02/18 10:47 Dose: 10 mg Folic Acid (Folvite Tab*) 1 mg PO DAILY [facility] Last Admin: 09/02/18 10:46 Dose: 1 mg Furosemide (Lasix Tab*) 40 mg PO DAILY [facility] Last Admin: 09/02/18 10:47 Dose: 40 mg Gabapentin (Neurontin Cap(*)) 300 mg PO BEDTIME [facility] Last Admin: 09/01/18 20:12 Dose: 300 mg Heparin Sodium (Porcine) (Heparin Vial(*)) 5,000 units SUBCUT Q8HR [facility] Last Admin: 09/02/18 14:30 Dose: 5,000 units Lactulose (Lactulose*) 30 ml PO QID [facility] Last Admin: 09/02/18 17:13 Dose: Not Given Levetiracetam (Keppra Tab*) 500 mg PO BID [facility] Last Admin: 09/02/18 10:46 Dose: 500 mg Lidocaine (Lidoderm 5% Patch*) 1 patch TRANSDERM DAILY [facility] Last Admin: 09/02/18 10:47 Dose: 1 patch Magnesium Oxide (Magox 400 Tab*) 400 mg PO BID [facility] Last Admin: 09/02/18 10:46 Dose: 400 mg Omeprazole (Prilosec Cap*) 20 mg PO DAILY@0730 [facility] Last Admin: 09/02/18 10:46 Dose: 20 mg Ondansetron HCl (Zofran Inj*) 4 mg IV Q6H PRN PRN Reason: NAUSEA Last Admin: 08/29/18 23:44 Dose: 4 mg Pharmacy Profile Note (Lidocaine Patch Remove*) 1 note N/A 2100 [facility] Last Admin: 09/01/18 20:16 Dose: 1 note Propranolol HCl (Inderal Tab*) 10 mg PO DAILY [facility] Last Admin: 09/02/18 10:48 Dose: 10 mg Rifaximin (Xifaxan*) 550 mg PO BID [facility] Last Admin: 09/02/18 10:48 Dose: 550 mg Spironolactone (Aldactone Tab*) 100 mg PO DAILY [facility] Last Admin: 09/02/18 10:47 Dose: 100 mg Tamsulosin HCl (Flomax Cap*) 0.4 mg PO BEDTIME [facility] Last Admin: 09/01/18 20:13 Dose: 0.4 mg Thiamine HCl (Vitamin B-1 Tab*) 100 mg PO DAILY [facility] Last Admin: 09/02/18 10:46 Dose: 100 mg Tramadol HCl (Ultram*) 50 mg PO Q6H PRN PRN Reason: PAIN Last Admin: 09/02/18 17:13 Dose: 50 mg Vital Signs - 8 hr 09/02/18 09/02/18 09/02/18 11:35 16:16 17:13 Temperature 97.6 F 98.2 F Pulse Rate 75 66 Respiratory 18 14 17 Rate Blood Pressure 120/60 89/40 (mmHg) O2 Sat by Pulse 100 98 Oximetry Oxygen Devices in Use Now: None Appearance: Middle aged male lying in bed, NAD Eyes: No Scleral Icterus Ears/Nose/Mouth/Throat: Mucous Membranes Moist Respiratory: Symmetrical Chest Expansion and Respiratory Effort, Clear to Auscultation - anteriorly Cardiovascular: NL Sounds; No Murmurs; No JVD, RRR, No Edema Abdominal: - - BS+ soft, NT, mildly distended Extremities: No Clubbing, Cyanosis Skin: No Nodules or Sclerosis Neurological: Alert and Oriented x 3 Result Diagrams: 09/01/18 05:04 09/02/18 05:09 Assess/Plan/Problems-Billing Mr Mata is a 63 yo M who is well known to the hospitalist service from multiple prior hospitalizations for hepatic encephalopathy who presented to the ER after falling and sustaining several L sided rib fractures and developed hepatic encephalopathy. - Patient Problems (1) Left rib fracture Current Visit: Yes Status: Acute Code(s): S22.32XA - FRACTURE OF ONE RIB, LEFT SIDE, INIT FOR CLOS FX SNOMED Code(s): 53266150 Comment: Pt has fractures of the left 6th-9th ribs. Continue pain control with tramadol, gabapentin, tylenol and lidocaine patch. Encourage deep inspiration and OOB to chair. Pt has requested [facility] for rehab. (2) Hepatic encephalopathy Current Visit: Yes Status: Chronic Code(s): K72.90 - HEPATIC FAILURE, UNSPECIFIED WITHOUT COMA SNOMED Code(s): 23554349 Comment: Ammonia level remains elevated >100. He is more awake today than yesterday. Encourage routine lactulose dosing and trial of scheduled toileting to see if it helps with being less incontinent. Continue rifaximin. Pt is non- compliant and I doubt ultimately that he will continue to take the lactulose as prescribed. (3) Alcoholic hepatitis Current Visit: Yes Status: Acute Code(s): K70.10 - ALCOHOLIC HEPATITIS WITHOUT ASCITES SNOMED Code(s): 064959536 Comment: Pt with likely alcoholic hepatitis. His LFTs remain elevated as does his bilirubin. The bilirubin level however has been trending down slowly. Monitor. (4) Anemia Current Visit: Yes Status: Chronic Code(s): D64.9 - ANEMIA, UNSPECIFIED SNOMED Code(s): 648043193 Comment: H/H down from admission but now at his baseline. Continue to monitor intermittently. (5) Alcohol abuse Current Visit: Yes Status: Chronic Code(s): F10.10 - ALCOHOL ABUSE, UNCOMPLICATED SNOMED Code(s): 65183339 Comment: No signs of withdrawal. Pt reportedly was drinking prior to this admission. (6) Cirrhosis Current Visit: Yes Status: Acute Comment: Pt with alcoholic cirrhosis. Continue supportive care. (7) DVT prophylaxis Current Visit: Yes Status: Acute Onset Date: 11/02/14 Code(s): NZA8591 - SNOMED Code(s): 480195448 Comment: start SQ heparin (8) Full code status Current Visit: Yes Status: Acute Onset Date: 11/02/14 Code(s): Z78.9 - OTHER SPECIFIED HEALTH STATUS SNOMED Code(s): 528502420 Comment: Status and Disposition: -Continue PT and will await for any future reccs -Possible D/C in 1-2 days
[2018-09-02] MEDS: Gabapentin CAP(*) 300 MG PO SCH (21:12)
[2018-09-02] MEDS: Tamsulosin CAP* 0.4 MG PO SCH (21:14)
[2018-09-02] MEDS: Lidocaine Patch REMOVE* 1 NOTE MISC SCH (21:16)
[2018-09-03] MEDS: Heparin VIAL(*) 5000 UNITS/ML VIAL (FIVE THOUSAND) SUBCUT SCH ×3 (05:31→21:00)
[2018-09-03 06:36] LABS: Hematocrit 25 % (42-52); Mean Corpuscular HGB Conc 33 g/dl (31-36); Mean Corpuscular Hemoglobin 31 pg (27-31); Mean Corpuscular Volume 94 fL (80-94); Mean Platelet Volume 7.5 fL (7.4-10.4); Platelet Count 81 10^3/ul (150-450); Red Cell Distribution Width 22 % (10.5-15); White Blood Count 4.4 10^3/ul (3.5-10.8)
[2018-09-03 06:51] LABS: EGFR Non-African American 102.7 (>60)
--- NOTE | 2018-09-03 09:17 | PN ---
Subjective Date of Service: 09/03/18 Interval History: Mr. Mata is feeling ok. He continues to have some rib pain, mostly focused in his sternum. He reports feeling as though someone hit him in the chest with a baseball bat. This is the same feeling since admission. He is still agreeable to [facility], but not willing to discuss any rehab or treatment for alcohol. He reports he will not drink anymore because he has "too much to live for." He understands that it is vital he takes his lactulose. He states he has been taking every dose of lactulose, but nursing documentation does not support this. He denies SOB, N/V, dizziness. Family History: Unchanged from Admission Social History: Unchanged from Admission Past Medical History: Unchanged from Admission Objective Active Medications: Acetaminophen (Tylenol Tab*) 650 mg PO Q6H PRN Pain/WILSON Albuterol (Ventolin Hfa Inhaler*) 2 puff INH Q4H PRN SHORTNESS OF BREATH Albuterol (Ventolin 2.5 Mg/3 Ml Neb.Debbie*) 2.5 mg INH Q2H PRN SOB/WHEEZING Escitalopram Oxalate (Lexapro (Nf)) 10 mg PO DAILY [facility] Folic Acid (Folvite Tab*) 1 mg PO DAILY [facility] Furosemide (Lasix Tab*) 40 mg PO DAILY [facility] Gabapentin (Neurontin Cap(*)) 300 mg PO BEDTIME [facility] Heparin Sodium (Porcine) (Heparin Vial(*)) 5,000 units SUBCUT Q8HR [facility] Lactulose (Lactulose*) 30 ml PO QID [facility] Levetiracetam (Keppra Tab*) 500 mg PO BID [facility] Lidocaine (Lidoderm 5% Patch*) 1 patch TRANSDERM DAILY [facility] Magnesium Oxide (Magox 400 Tab*) 400 mg PO BID [facility] Omeprazole (Prilosec Cap*) 20 mg PO DAILY@0730 [facility] Ondansetron HCl (Zofran Inj*) 4 mg IV Q6H PRN NAUSEA Pharmacy Profile Note (Lidocaine Patch Remove*) 1 note N/A 2100 [facility] Propranolol HCl (Inderal Tab*) 10 mg PO DAILY [facility] Rifaximin (Xifaxan*) 550 mg PO BID [facility] Spironolactone (Aldactone Tab*) 100 mg PO DAILY [facility] Tamsulosin HCl (Flomax Cap*) 0.4 mg PO BEDTIME [facility] Thiamine HCl (Vitamin B-1 Tab*) 100 mg PO DAILY [facility] Tramadol HCl (Ultram*) 50 mg PO Q6H PRN PAIN Vital Signs - 8 hr 09/03/18 09/03/18 09/03/18 01:30 01:45 03:09 Temperature 98.5 F Pulse Rate 84 79 Respiratory 20 16 20 Rate Blood Pressure (mmHg) O2 Sat by Pulse 99 99 Oximetry 09/03/18 03:13 Temperature Pulse Rate Respiratory Rate Blood Pressure 100/39 (mmHg) O2 Sat by Pulse Oximetry Oxygen Devices in Use Now: Nasal Cannula - 1L Appearance: Middle-aged male sitting in bed in NAD Eyes: No Scleral Icterus Ears/Nose/Mouth/Throat: Mucous Membranes Moist Neck: NL Appearance and Movements; NL JVP, Trachea Midline Respiratory: Symmetrical Chest Expansion and Respiratory Effort, Clear to Auscultation Cardiovascular: NL Sounds; No Murmurs; No JVD, RRR Abdominal: - - Mildly distended with ascites Extremities: No Edema Skin: No Rash or Ulcers Neurological: Alert and Oriented x 3 Lines/Tubes/Other Access: Clean, Dry and Intact Peripheral IV Nutrition: Taking PO's Result Diagrams: 09/03/18 06:20 09/03/18 06:20 Assess/Plan/Problems-Billing Mr Mata is a 63 yo M who is well known to the hospitalist service from multiple prior hospitalizations for hepatic encephalopathy who presented to the ER after falling and sustaining several L sided rib fractures and developed hepatic encephalopathy. - Patient Problems (1) Hepatic encephalopathy Current Visit: Yes Status: Chronic Code(s): K72.90 - HEPATIC FAILURE, UNSPECIFIED WITHOUT COMA SNOMED Code(s): 49236211 Comment: - Ammonia level up to 175 today, though mentally remains clear - Encourage compliance w/ lactulose; it is unlikely that he will continue to take as prescribed once d/c'd - Continue rifaximin (2) Alcoholic hepatitis Current Visit: Yes Status: Acute Code(s): K70.10 - ALCOHOLIC HEPATITIS WITHOUT ASCITES SNOMED Code(s): 137682949 Comment: - On admission; LFTs now resolving (3) Left rib fracture Current Visit: Yes Status: Acute Code(s): S22.32XA - FRACTURE OF ONE RIB, LEFT SIDE, INIT FOR CLOS FX SNOMED Code(s): 64542808 Comment: - Fractures of the left 6th-9th ribs - Encourage deep inspiration and OOB to chair - Continue pain control with tramadol, gabapentin, tylenol and lidocaine patch (4) Anemia Current Visit: Yes Status: Chronic Code(s): D64.9 - ANEMIA, UNSPECIFIED SNOMED Code(s): 521986573 Comment: - H/H down from admission but now at his baseline (8-9) - Continue to monitor intermittently (5) Cirrhosis Current Visit: Yes Status: Acute Comment: - Alcoholic cirrhosis - MELD score of 20, indicating 3-4% estimated 90 day mortality rate - Continue supportive care (6) Alcohol abuse Current Visit: Yes Status: Chronic Code(s): F10.10 - ALCOHOL ABUSE, UNCOMPLICATED SNOMED Code(s): 20579172 Comment: - No signs of withdrawal - Reportedly drinking prior to this admission, but does seem motivated to quit - Appreciate social work consult (7) DVT prophylaxis Current Visit: Yes Status: Acute Onset Date: 11/02/14 Code(s): AON8720 - SNOMED Code(s): 349291624 Comment: - Heparin SQ (8) Full code status Current Visit: Yes Status: Acute Onset Date: 11/02/14 Code(s): Z78.9 - OTHER SPECIFIED HEALTH STATUS SNOMED Code(s): 517179869 Status and Disposition: Inpatient significantly elevated ammonia. Anticipate d/c to [facility] when medically stable, possibly tomorrow.
[2018-09-03] MEDS: Lidocaine PATCH 5%* 1 PATCH TRANSDERM SCH (09:30)
[2018-09-03] MEDS: Magnesium Oxide TAB* 400 MG PO SCH ×2 (09:33→20:54)
[2018-09-03] MEDS: Furosemide TAB* 40 MG PO SCH (09:34)
[2018-09-03] MEDS: Propranolol TAB* 10 MG PO SCH (09:34)
[2018-09-03] MEDS: Omeprazole CAP* 20 MG PO SCH (09:35)
[2018-09-03] MEDS: Spironolactone TAB* 25 MG PO SCH (09:35)
[2018-09-03] MEDS: Thiamine TAB* 100 MG TAB PO SCH (09:36)
[2018-09-03] MEDS: Folic Acid TAB* 1 MG PO SCH (09:36)
[2018-09-03] MEDS: RiFAXimin* 550 MG TAB PO SCH ×2 (09:37→20:55)
[2018-09-03] MEDS: CMC: Escitalopram (NF) 10 MG TAB PO SCH (09:37)
[2018-09-03] MEDS: levETIRAcetam TAB* 500 MG PO SCH ×2 (09:37→20:55)
[2018-09-03] MEDS: traMADol TAB* 50 MG PO PRN ×2 (09:40→20:53)
[2018-09-03] MEDS: Acetaminophen TAB* 325 MG PO PRN (13:00)
[2018-09-03] MEDS: Tamsulosin CAP* 0.4 MG PO SCH (20:54)
[2018-09-03] MEDS: Gabapentin CAP(*) 300 MG PO SCH (20:54)
[2018-09-03] MEDS: Lidocaine Patch REMOVE* 1 NOTE MISC SCH (20:59)
[2018-09-04] MEDS: Heparin VIAL(*) 5000 UNITS/ML VIAL (FIVE THOUSAND) SUBCUT SCH ×3 (05:15→21:09)
[2018-09-04 06:04] LABS: EGFR Non-African American 105.9 (>60)
[2018-09-04 06:13] LABS: ABS Basophils 0 10^3/ul (0-0.2); ABS Eosinophils 0.2 10^3/ul (0-0.6); ABS Lymphocytes 1.2 10^3/ul (1.0-4.8); ABS Monocytes 0.6 10^3/ul (0-0.8); ABS Nucleated RBC 0 10^3/ul; Eosinophil % 4.8 %; Hematocrit 25 % (42-52); Hemoglobin 8.1 g/dl (14.0-18.0); Lymphocyte % 29.4 %; Mean Corpuscular HGB Conc 33 g/dl (31-36); Mean Corpuscular Hemoglobin 31 pg (27-31); Mean Corpuscular Volume 94 fL (80-94); Mean Platelet Volume 7.3 fL (7.4-10.4); Nucleated Red Blood Cells % 0.2; Platelet Count 83 10^3/ul (150-450); Red Blood Count 2.64 10^6/ul (4.00-5.40); Red Cell Distribution Width 22 % (10.5-15); White Blood Count 4.1 10^3/ul (3.5-10.8)
[2018-09-04] MEDS: Spironolactone TAB* 25 MG PO SCH (08:27)
[2018-09-04] MEDS: Furosemide TAB* 40 MG PO SCH (08:27)
[2018-09-04] MEDS: Omeprazole CAP* 20 MG PO SCH (08:27)
[2018-09-04] MEDS: Lidocaine PATCH 5%* 1 PATCH TRANSDERM SCH (08:27)
[2018-09-04] MEDS: Magnesium Oxide TAB* 400 MG PO SCH ×2 (08:28→21:07)
[2018-09-04] MEDS: levETIRAcetam TAB* 500 MG PO SCH ×2 (08:28→21:08)
[2018-09-04] MEDS: Propranolol TAB* 10 MG PO SCH (08:28)
[2018-09-04] MEDS: CMC: Escitalopram (NF) 10 MG TAB PO SCH (08:28)
[2018-09-04] MEDS: Folic Acid TAB* 1 MG PO SCH (08:28)
[2018-09-04] MEDS: Thiamine TAB* 100 MG TAB PO SCH (08:28)
[2018-09-04] MEDS: RiFAXimin* 550 MG TAB PO SCH ×2 (08:28→21:16)
[2018-09-04] MEDS: traMADol TAB* 50 MG PO PRN ×3 (08:34→21:16)
[2018-09-04] MEDS: Potassium Chlor TAB* 20 MEQ TAB.ER PO SCH (10:49)
--- NOTE | 2018-09-04 14:54 | PN ---
Subjective Date of Service: 09/04/18 Interval History: Patient is feeling better today with a moderate decrease in his pain but he states that he had "12" bowel movements overnight and some of which were incontinent. Patient finds this intolerable. Patient denies any slow thoughts or unsteadiness on standing. Patient denies F/C, N/V, abdominal pain, CP, SOB, dysuria. Patient has consistent pain in the left side of his ribcage which is worse with movement, breathing, coughing or sneezing. Family History: Unchanged from Admission Social History: Unchanged from Admission Past Medical History: Unchanged from Admission Objective Active Medications: Acetaminophen (Tylenol Tab*) 650 mg PO Q6H PRN PRN Reason: Pain/WILSON Last Admin: 09/03/18 13:00 Dose: 650 mg Albuterol (Ventolin Hfa Inhaler*) 2 puff INH Q4H PRN PRN Reason: SHORTNESS OF BREATH Albuterol (Ventolin 2.5 Mg/3 Ml Neb.Debbie*) 2.5 mg INH Q2H PRN PRN Reason: SOB/WHEEZING Escitalopram Oxalate (Lexapro (Nf)) 10 mg PO DAILY [facility] Last Admin: 09/04/18 08:28 Dose: 10 mg Folic Acid (Folvite Tab*) 1 mg PO DAILY [facility] Last Admin: 09/04/18 08:28 Dose: 1 mg Furosemide (Lasix Tab*) 40 mg PO DAILY [facility] Last Admin: 09/04/18 08:27 Dose: 40 mg Gabapentin (Neurontin Cap(*)) 300 mg PO BEDTIME [facility] Last Admin: 09/03/18 20:54 Dose: 300 mg Heparin Sodium (Porcine) (Heparin Vial(*)) 5,000 units SUBCUT Q8HR [facility] Last Admin: 09/04/18 14:23 Dose: 5,000 units Lactulose (Lactulose*) 30 ml PO BID WITH MEALS [facility] Levetiracetam (Keppra Tab*) 500 mg PO BID [facility] Last Admin: 09/04/18 08:28 Dose: 500 mg Lidocaine (Lidoderm 5% Patch*) 1 patch TRANSDERM DAILY [facility] Last Admin: 09/04/18 08:27 Dose: 1 patch Magnesium Oxide (Magox 400 Tab*) 400 mg PO BID [facility] Last Admin: 09/04/18 08:28 Dose: 400 mg Omeprazole (Prilosec Cap*) 20 mg PO DAILY@0730 [facility] Last Admin: 09/04/18 08:27 Dose: 20 mg Ondansetron HCl (Zofran Inj*) 4 mg IV Q6H PRN PRN Reason: NAUSEA Last Admin: 08/29/18 23:44 Dose: 4 mg Pharmacy Profile Note (Lidocaine Patch Remove*) 1 note N/A 2100 [facility] Last Admin: 09/03/18 20:59 Dose: 1 note Potassium Chloride (Klor Con Er Tab*) 20 meq PO DAILY [facility] Stop: 09/05/18 09:01 Last Admin: 09/04/18 10:49 Dose: 20 meq Propranolol HCl (Inderal Tab*) 10 mg PO DAILY [facility] Last Admin: 09/04/18 08:28 Dose: 10 mg Rifaximin (Xifaxan*) 550 mg PO BID [facility] Last Admin: 09/04/18 08:28 Dose: 550 mg Spironolactone (Aldactone Tab*) 100 mg PO DAILY [facility] Last Admin: 09/04/18 08:27 Dose: 100 mg Tamsulosin HCl (Flomax Cap*) 0.4 mg PO BEDTIME [facility] Last Admin: 09/03/18 20:54 Dose: 0.4 mg Thiamine HCl (Vitamin B-1 Tab*) 100 mg PO DAILY [facility] Last Admin: 09/04/18 08:28 Dose: 100 mg Tramadol HCl (Ultram*) 50 mg PO Q6H PRN PRN Reason: PAIN Last Admin: 09/04/18 08:34 Dose: 50 mg Vital Signs - 8 hr 09/04/18 09/04/18 09/04/18 07:26 08:00 08:34 Temperature 98.0 F Pulse Rate 82 Respiratory 18 18 18 Rate Blood Pressure 131/57 (mmHg) O2 Sat by Pulse 100 Oximetry Oxygen Devices in Use Now: Nasal Cannula Appearance: Patient is a 63yo male who appears older than stated age and is sitting in the bed in [facility]. Eyes: No Scleral Icterus, PERRLA Ears/Nose/Mouth/Throat: NL Teeth, Lips, Gums, Clear Oropharnyx, Mucous Membranes Moist Neck: NL Appearance and Movements; NL JVP, Trachea Midline Respiratory: Symmetrical Chest Expansion and Respiratory Effort, Clear to Auscultation Cardiovascular: NL Sounds; No Murmurs; No JVD, RRR, No Edema, - - Pain iwth palpation over left chest. Abdominal: - - Distended, Umbilical hernia. Non-tender Lymphatic: No Cervical Adenopathy Extremities: No Edema, No Clubbing, Cyanosis Skin: No Rash or Ulcers, No Nodules or Sclerosis Neurological: Alert and Oriented x 3, NL Sensation, NL Muscle Strength and Tone , - - CN II-XII intact. Result Diagrams: 09/04/18 05:37 09/04/18 05:37 Assess/Plan/Problems-Billing Mr Mata is a 63 yo M who is well known to the hospitalist service from multiple prior hospitalizations for hepatic encephalopathy due to alcoholic cirrhosis who presented to the ER after falling and sustaining several L sided rib fractures and developed hepatic encephalopathy due to non-compliance with his lactulose which is now improving with reinstitution of lactulose therapy. - Patient Problems (1) Hepatic encephalopathy Current Visit: No Status: Acute Code(s): K72.90 - HEPATIC FAILURE, UNSPECIFIED WITHOUT COMA SNOMED Code(s): 97581470 Comment: - Continue Xifaxan - Decrease lactulose to aim for 2-3 BMs daily - No indication to trend ammonia levels. (2) Cirrhosis Current Visit: Yes Status: Acute Comment: - Alcoholic cirrhosis - MELD score of 20, indicating 3-4% estimated 90 day mortality rate - Continue supportive care - May be transplant candidate if able to maintain alcohol abstinence. (3) Left rib fracture Current Visit: Yes Status: Acute Code(s): S22.32XA - FRACTURE OF ONE RIB, LEFT SIDE, INIT FOR CLOS FX SNOMED Code(s): 01360409 Comment: - Fractures of the left 6th-9th ribs - Encourage deep inspiration and OOB to chair - Continue pain control with tramadol, gabapentin, tylenol and lidocaine patch (4) Alcohol abuse Current Visit: Yes Status: Chronic Code(s): F10.10 - ALCOHOL ABUSE, UNCOMPLICATED SNOMED Code(s): 68115544 Comment: - No signs of withdrawal - Reportedly drinking prior to this admission, but does seem motivated to quit - Appreciate social work consult (5) Anemia Current Visit: Yes Status: Chronic Code(s): D64.9 - ANEMIA, UNSPECIFIED SNOMED Code(s): 535316661 Comment: - H/H down from admission but now at his baseline (8-9) - Continue to monitor intermittently - Likely due to ESTEPHANIA and alcoholism. (6) Hepatic encephalopathy Current Visit: Yes Status: Chronic Code(s): K72.90 - HEPATIC FAILURE, UNSPECIFIED WITHOUT COMA SNOMED Code(s): 85073828 Comment: - Resolved clinically. - Lactulose BID and Continue rifaximin (7) Physical deconditioning Current Visit: No Status: Acute Priority: High Code(s): R53.81 - OTHER MALAISE SNOMED Code(s): 58492023550644 Comment: - Continue PT/OT. - Will need placement. (8) Hypertension Current Visit: No Status: Chronic Priority: Medium Code(s): I10 - ESSENTIAL (PRIMARY) HYPERTENSION SNOMED Code(s): 50201248 Comment: -Well-controlled -Given portal HTN, continue propranolol along with diuretics (9) Seizures Current Visit: No Status: Chronic Priority: Medium Code(s): R56.9 - UNSPECIFIED CONVULSIONS SNOMED Code(s): 84159880 Comment: - No evidence of seizure activity - Continue Keppra (10) Thrombocytopenia Current Visit: No Status: Chronic Code(s): D69.6 - THROMBOCYTOPENIA, UNSPECIFIED SNOMED Code(s): 499961165 Comment: - Chronic - Due to ETOH abuse - At baseline (11) DVT prophylaxis Current Visit: Yes Status: Acute Onset Date: 11/02/14 Code(s): JUI7682 - SNOMED Code(s): 584830303 Comment: - Heparin SQ Status and Disposition: Inpatient for optimization of difficult to control hepatic encephalopathy. Anticipate d/c to [facility] when medically stable.
[2018-09-04] MEDS: Lidocaine Patch REMOVE* 1 NOTE MISC SCH (21:00)
[2018-09-04] MEDS: Tamsulosin CAP* 0.4 MG PO SCH (21:07)
[2018-09-04] MEDS: Gabapentin CAP(*) 300 MG PO SCH (21:08)
[2018-09-05] MEDS: Heparin VIAL(*) 5000 UNITS/ML VIAL (FIVE THOUSAND) SUBCUT SCH (06:27)
[2018-09-05 06:35] LABS: ABS Basophils 0 10^3/ul (0-0.2); ABS Eosinophils 0.2 10^3/ul (0-0.6); ABS Lymphocytes 1.1 10^3/ul (1.0-4.8); ABS Monocytes 0.7 10^3/ul (0-0.8); ABS Neutrophils 1.8 10^3/ul (1.5-7.7); ABS Nucleated RBC 0 10^3/ul; Eosinophil % 4.4 %; Hematocrit 23 % (42-52); Hemoglobin 7.6 g/dl (14.0-18.0); Lymphocyte % 28.8 %; Mean Corpuscular HGB Conc 33 g/dl (31-36); Mean Corpuscular Hemoglobin 31 pg (27-31); Mean Corpuscular Volume 94 fL (80-94); Mean Platelet Volume 7.3 fL (7.4-10.4); Nucleated Red Blood Cells % 0.1; Platelet Count 81 10^3/ul (150-450); Red Blood Count 2.49 10^6/ul (4.00-5.40); Red Cell Distribution Width 22 % (10.5-15); White Blood Count 3.9 10^3/ul (3.5-10.8)
[2018-09-05 06:43] LABS: INR 1.45 (0.77-1.02)
[2018-09-05 06:51] LABS: EGFR Non-African American 98.3 (>60)
[2018-09-05] MEDS: RiFAXimin* 550 MG TAB PO SCH (08:18)
[2018-09-05] MEDS: Spironolactone TAB* 25 MG PO SCH (08:18)
[2018-09-05] MEDS: Furosemide TAB* 40 MG PO SCH (08:19)
[2018-09-05] MEDS: Thiamine TAB* 100 MG TAB PO SCH (08:19)
[2018-09-05] MEDS: Magnesium Oxide TAB* 400 MG PO SCH (08:19)
[2018-09-05] MEDS: CMC: Escitalopram (NF) 10 MG TAB PO SCH (08:19)
[2018-09-05] MEDS: traMADol TAB* 50 MG PO PRN (08:19)
[2018-09-05] MEDS: Propranolol TAB* 10 MG PO SCH (08:19)
[2018-09-05] MEDS: levETIRAcetam TAB* 500 MG PO SCH (08:20)
[2018-09-05] MEDS: Omeprazole CAP* 20 MG PO SCH (08:20)
[2018-09-05] MEDS: Folic Acid TAB* 1 MG PO SCH (08:20)
[2018-09-05] MEDS: Potassium Chlor TAB* 20 MEQ TAB.ER PO SCH (08:20)
[2018-09-05] MEDS ORDERED: Magnesium Sulfate 2 GM IV* 2 GM/50 ML BAG IVPB ONE (08:42)
[2018-09-05 11:28] LABS: Hematocrit 27 % (42-52); Hemoglobin 8.7 g/dl (14.0-18.0)
[2018-09-05 12:02] VITALS: BP 114/51
--- NOTE | 2018-09-05 13:23 | DS ---
CC: Dr. Rosie Noriega; [facility] * DATE OF ADMISSION: 08/28/2018. DATE OF DISCHARGE: 09/05/2018. PRIMARY CARE PHYSICIAN: Dr. Rosie Noriega. ATTENDING PHYSICIAN: Dr. Elidia Kahn * (dictated by DYLAN Lawrence). PRIMARY DISCHARGE DIAGNOSES: Hepatic encephalopathy, fall with left 6th through 11th rib fractures. SECONDARY DISCHARGE DIAGNOSES: Alcohol abuse, alcoholic cirrhosis, history of subdural hematoma, hypertension, asthma, history of depression, seizures, umbilical hernia, history of CVA. STUDIES DONE WHILE IN THE HOSPITAL: 1. Brain CT from 08/28/2018, read as: No acute intracranial pathology, stable bifrontal encephalomalacia. 2. Rib with chest x-ray from 08/28/2018, read as: Fractures of the left sixth through ninth ribs without appreciable pneumothorax. 3. Cervical spine CT from 08/28/2018, read as: Mild degenerative disk disease. There is mild narrowing of the central canal at C5-6 and C6-7 with multilevel neural foraminal narrowing. No acute osseous injury to the cervical spine. 4. Chest CT from 08/28/2018, read as: Acute fractures of the left 6th through 11th ribs. Subacute to chronic appearing fractures of the right 10th and 11th ribs. No appreciable pneumothorax. Trace left pleural effusion. Small amount of perihepatic ascites. MEDICATIONS AT DISCHARGE: 1. Propranolol 10 mg p.o. daily. 2. Furosemide 40 mg p.o. daily. 3. Lexapro 10 mg p.o. daily. 4. Keppra 500 mg p.o. b.i.d. 5. Prilosec 20 mg p.o. daily. 6. Gabapentin 300 mg p.o. at bedtime. 7. Rifaximin 550 mg p.o. b.i.d. 8. Folic acid 1 mg p.o. daily. 9. Vitamin B12 500 mcg p.o. daily. 10. Epinephrine 0.3 mg IM once as needed for allergic reactions. 11. Albuterol HFA inhaler two puffs inhalation q.4 hours as needed. 12. Tamsulosin 0.4 mg p.o. at bedtime. 13. Magnesium Oxide 400 mg p.o. b.i.d. 14. Spironolactone 100 mg p.o. daily. 15. Albuterol nebulizer 2.5 mg inhalation q.2 hours as needed. 16. Lidocaine patch one patch transdermal daily. 17. Thiamine 100 mg p.o. daily. 18. Tramadol 50 mg p.o. q.6 hours as needed. 19. Lactulose 30 mg p.o. b.i.d. with meals. HOSPITAL COURSE: This is a brief summary of this patient's presentation. For more details, please see the history and physical from Craig Abernathy NP on . In brief, the patient is a 63-year-old male who is very well-known to this hospital for multiple previous admissions who presented to the emergency department after a fall in his driveway. He slipped on ice and landed on his left side and had worsening left-sided pain which was worse with movement and breathing. He had a negative brain CT. He has been drinking alcohol as an outpatient despite his liver cirrhosis. The patient came to the emergency department for concern of possible fractures. The patient had an elevated ammonia level. The patient states he had not been taking his Lactulose as prescribed. The patient was altered when he came in. The patient's laboratory data showed an elevated lactic acid and an elevated creatinine, as well as hemoglobin well above his baseline likely representing volume contraction. The patient was given fluids when he came into the hospital and improved quickly. The patient had no other significant laboratory abnormalities distinct from his baseline except for a low magnesium which was replaced. The patient was increased up to four doses of Lactulose 30 ml at a time, but when this dose was adhered to, the patient had by his report 12 bowel movements, most of which were incontinent in the space of 24 hours which patient finds intolerable. The patient was decreased to two and was having an average of three bowel movements daily on this regimen. The patient's most recent ammonia level was 106, but his encephalopathy clinically had entirely resolved. The patient's pain in his ribs was well controlled with Tramadol and Lidocaine patches. The patient was able to ambulate approximately 100 feet with physical therapy. The patient had no appreciable increase in his ascites, no shortness of breath or abdominal discomfort, no blood in his stool. The patient's hemoglobin is chronically around the mid 8s and this was his pattern during this hospitalization as well. The patient was stable and amenable for discharge to [facility] for rehab on 09/05/2018. PHYSICAL EXAMINATION ON THE DAY OF DISCHARGE: General: The patient is a 63- year- old who appears stated age, and sitting comfortably in bed in no acute distress. Vital Signs: Temperature 98.3, pulse rate 80, respiratory rate 16, oxygen saturation 99 percent on 1 liter, blood pressure 112/50. HEENT : Head normocephalic, atraumatic. Scleral anicteric. No conjunctival injection. Nasal mucosa moist. Oral mucosa moist. No previous erythema, discharge, or exudate. Neck: Supple, nontender. No lymphadenopathy, no carotid bruits auscultated, no JVD. Cardiac: Regular rate and rhythm. No clicks, murmurs, gallops or rubs. Pulse 2+ in bilateral dorsalis pedis, posterior tibialis, and radial areas. Respiratory: Clear to auscultation bilaterally. No wheezes, rubs, or rhonchi. Good air exchange bilaterally. Abdomen: Soft, distended. No hepatosplenomegaly. No splenomegaly. No abdominal bruits auscultated. Umbilical hernia. Bowel sounds present. Normoactive in all four quadrants. No hepatojugular reflux. Genitourinary: No suprapubic or CVA tenderness. Skin: Clean, dry, intact. No rash. Neuro: Cranial nerves II through XII intact. No focal deficits. Alert and oriented times three. No asterixis. LABORATORY DATA ON THE DAY OF DISCHARGE: White blood cell count 3.9, hemoglobin and hematocrit repeat 8.7 and 27, MCV 94, MCH 31, RDW 22, platelet count 81; INR 1.45; sodium 131, potassium 4.2, chloride 101, carbon dioxide 27, anion gap 3, BUN 10, creatinine 0.8, glucose 109, calcium 8.6, magnesium 1.8, bilirubin 3.1, AST 19, ALT 9, alkaline phosphatase 145, total protein 5.8, albumin 2.5, globulin 3.3. DISCHARGE PLAN: The patient will be discharged to [facility] for rehab while he convalescence from his rib fractures. The patient will be optimized on his Lactulose with an ideal number of bowel movements between two and three a day. Having more than this will likely be detrimental to the patient as he appeared dehydrated before coming in and this may have been a contributing factor. The patient's potassium should also be supplemented as needed. The patient should have a repeat BMP within one week. 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 The patient should follow-up with a transplant surgeon as necessary. The patient should be entirely absent from alcohol. The patient should have a heart healthy diet without caffeine. The patient should engage in activity as tolerated. The patient will have Tramadol and a Lidocaine patch as needed for pain. The patient's pain is well controlled at this time. TIME SPENT: Approximately 60 minutes were spent on the discharge of this patient, 30 of which were spent [id number] with the patient obtaining history and physical and discussing treatment plan. This discharge summary may be used as an admitting history and physical for [facility]. DYLAN LAWRENCE [id number]/TONY #: [id number] MARILUZ
== END 2018-09-05 14:25 | DRG 135 ==
LOC: ED 10:25 → MED 15:12 → OBSVTOIN 08-30 10:28
PROVIDERS: ADMIT Internal Medicine; ATTEND Hospitalist
DX: S22.42XA Multiple fractures of ribs, left side, initial encounter for closed fracture (principal); K76.6 Portal hypertension; J90 Pleural effusion, not elsewhere classified; K70.40 Alcoholic hepatic failure without coma; I10 Essential (primary) hypertension; J45.909 Unspecified asthma, uncomplicated; F32.9 Major depressive disorder, single episode, unspecified; G40.909 Epilepsy, unspecified, not intractable, without status epilepticus; W00.0XXA Fall on same level due to ice and snow, initial encounter; E11.9 Type 2 diabetes mellitus without complications; E78.00 Pure hypercholesterolemia, unspecified; J42 Unspecified chronic bronchitis; M17.0 Bilateral primary osteoarthritis of knee; F17.210 Nicotine dependence, cigarettes, uncomplicated; K70.31 Alcoholic cirrhosis of liver with ascites; F10.10 Alcohol abuse, uncomplicated; D64.9 Anemia, unspecified; R15.9 Full incontinence of feces; R53.81 Other malaise; D69.6 Thrombocytopenia, unspecified; G93.89 Other specified disorders of brain; M50.30 Other cervical disc degeneration, unspecified cervical region; E83.42 Hypomagnesemia; Z87.820 Personal history of traumatic brain injury; Z86.73 Personal history of transient ischemic attack (TIA), and cerebral infarction without residual deficits; Y92.488 Other paved roadways as the place of occurrence of the external cause; Z90.49 Acquired absence of other specified parts of digestive tract; Z88.8 Allergy status to other drugs, medicaments and biological substances; Z91.030 Bee allergy status; Z82.3 Family history of stroke; Z91.14 Patient's other noncompliance with medication regimen
CPT/HCPCS: 36415; 70450; 71260; 72125; 80048; 80053; 80320; 80329; 82140; 82247; 82550; 83605; 83735; 84100; 84443; 84484; 85014; 85018; 85025; 85027; 85610; 85730; 93005; 99283; A9270-GY; G0378; G0480; J1644; J2405; J3475; Q9967

== ENCOUNTER 2018-09-15 05:56 | Emergency (ER) | payer BC ==
[2018-09-15 06:55] LABS: ABS Basophils 0.1 10^3/ul (0-0.2); ABS Eosinophils 0.3 10^3/ul (0-0.6); ABS Lymphocytes 2.3 10^3/ul (1.0-4.8); ABS Monocytes 0.6 10^3/ul (0-0.8); ABS Neutrophils 3.1 10^3/ul (1.5-7.7); ABS Nucleated RBC 0 10^3/ul; Eosinophil % 4.3 %; Hematocrit 31 % (42-52); Lymphocyte % 35.5 %; Mean Corpuscular HGB Conc 32 g/dl (31-36); Mean Corpuscular Hemoglobin 29 pg (27-31); Mean Corpuscular Volume 92 fL (80-94); Mean Platelet Volume 7.1 fL (7.4-10.4); Nucleated Red Blood Cells % 0; Platelet Count 162 10^3/ul (150-450); Red Blood Count 3.43 10^6/ul (4.00-5.40); Red Cell Distribution Width 21 % (10.5-15); White Blood Count 6.3 10^3/ul (3.5-10.8)
[2018-09-15 07:12] LABS: EGFR Non-African American 80.6 (>60)
--- NOTE | 2018-09-15 08:55 | ED ---
Complex/Multi-Sys Presentation - HPI Summary HPI Summary: Pt. is a 63 y.o male who presents to the ER for evaluation. Pt. has a hx of alcohol abuse, hepatic encephalopathy, cirrhosis and HTN. Pt. lives at home with his sister. Pt. states he only had one shot of vodka last night. Pt. states he was trying to get into bed last night when he felt too weak and decided to lye on the floor instead. Pt. states he was comfortable on floor and stayed there for 3 hours until he called EMS because he could not get up. Pt. states he did not fall, hit his head or syncopize. Pt. was seen in the ED about a week and a half ago after a fall and dx with rib fxs. He has been taking ultram for pain at home. Pt. denies any complaints in the ED other than ongoing chest pain secondary to recent rib fractures. Pt. denies SOB, fever, cough, abd. pain, V/D. Symptoms are moderate in severity. Movement makes sxs worse. Rest makes sxs better. - History Of Current Complaint Chief Complaint: EDWeakness Time Seen by Provider: 09/15/18 06:07 Hx Obtained From: Patient - Allergies/Home Medications Allergies/Adverse Reactions: Allergies Allergy/AdvReac Type Severity Reaction Status Date / Time bee pollen Allergy Hives Verified 09/15/18 06:12 bee venom protein (honey bee) Allergy Hives Verified 09/15/18 06:12 lorazepam [From Ativan] Allergy See Comment Verified 09/15/18 06:12 sertraline Allergy Rash And Verified 09/15/18 06:12 Itching Home Medications: Home Medications Hydroxyzine HCl 25 mg PO BID 09/15/18 [History Confirmed 09/15/18] Nasacort Aq Nasal [place]* 1 puff ALT NARE DAILY 09/15/18 [History Confirmed 09/15] PMH/Surg Hx/FS Hx/Imm Hx Previously Healthy: Yes Endocrine/Hematology History: Reports: Hx Diabetes - elevated glucose after acute liver failure - diet controlled Denies: Hx Anticoagulant Therapy, Hx Thyroid Disease, Hx Anemia, Hx Unexplained Bleeding Cardiovascular History: Reports: Hx Hypercholesterolemia, Hx Hypertension Denies: Hx Aneurysm, Hx Angina, Hx Angioplasty, Hx Auto Implanted Cardiovert Defib, Hx Cardiac Arrest, Hx Cardiomegaly, Hx Congenital Heart Disease, Hx Congestive Heart Failure, Hx Coronary Artery Disease, Hx Deep Vein Thrombosis, Hx Embolism, Hx Hypotension, Hx Pacemaker/ICD, Hx Peripheral Vascular Disease, Hx Rheumatic Fever, Hx Syncope, Hx Valvular Heart Disease, Other Cardiovascular Problems/Disorders Respiratory History: Reports: Hx Asthma, Hx Chronic Bronchitis, Hx Seasonal Allergies - hay fever Denies: Hx Chronic Obstructive Pulmonary Disease (COPD), Hx Cystic Fibrosis, Hx Lung Cancer, Hx Pleural Effusion, Hx Pneumonia, Hx Pulmonary Edema, Hx Pulmonary Embolism, Hx Sleep Apnea, Other Respiratory Problems/Disorders GI History: Reports: Hx Cirrhosis, Hx Gall Bladder Disease, Hx Hiatal Hernia, Hx Ulcer Denies: Hx Crohn's Disease, Hx Diverticulosis, Hx Gastroesophageal Reflux Disease, Hx Gastrointestinal Bleed, Hx Irritable Bowel, Hx Jaundice, Hx Obstructive Bowel, Hx Ileostomy, Hx Pyloric Stenosis, Other GI Disorders History: Denies: Hx Dialysis, Hx Renal Disease Musculoskeletal History: Reports: Hx Arthritis - both knees, Hx Orthopedic Injury Denies: Hx Back Problems, Hx Bursitis, Hx Congenital Bone Abnormalities, Hx Fibromyalgia, Hx Gout, Hx Osteoporosis, Hx Scoliosis, Hx Tendonitis, Other Musculoskeletal History Sensory History: Reports: Hx Contacts or Glasses Denies: Hx Cataracts, Hx Eye Injury, Hx Eye Prosthesis, Hx Glaucoma, Hx Legally Blind, Hx Macular Degeneration, Hx Vision Problem, Hx Deafness, Hx Hearing Aid, Hx Hearing Problem, Other Sensory Impairments Opthamlomology History: Reports: Hx Contacts or Glasses Denies: Hx Cataracts, Hx Eye Injury, Hx Eye Prosthesis, Hx Glaucoma, Hx Legally Blind, Hx Macular Degeneration, Hx Vision Problem, Other Sensory Impairments Neurological History: Reports: Hx Headaches, Hx Seizures, Other Neuro Impairments/Disorders - Subdural Hematoma Denies: Hx Dementia Psychiatric History: Reports: Hx Depression, Hx Substance Abuse - ETOH Denies: Hx Anxiety, Hx Attention Deficit Hyperactivity Disorder, Hx Eating Disorder, Hx Panic Disorder, Hx Post Traumatic Stress Disorder, Hx Inpatient Treatment, Hx Community Mental Health Tx, Hx Schizophrenia, Hx Bipolar Disorder , Hx Suicide Attempt, Hx of Violent Episodes Against Others, Other Psychiatric Issues/Disorders - Cancer History Cancer Type, Location and Year: None reported - Surgical History Surgery Procedure, Year, and Place: RIGHT ANKLE ORIF. LEFT KNEE TENDON REPAIR. CHOLECYSECTOMY. APPENDECTOMY. TONSILECTOMY Hx Anesthesia Reactions: No Infectious Disease History: No Infectious Disease History: Reports: Hx of Known/Suspected MRSA Denies: Hx Clostridium Difficile, Hx Hepatitis, Hx Human Immunodeficiency Virus (HIV), Hx Shingles, Hx Tuberculosis, History Other Infectious Disease, Traveled Outside the [place] in Last 30 Days - Family History Known Family History: Negative: Cardiac Disease, Diabetes - Social History Occupation: Unemployed Lives: With Family Alcohol Use: ETOH use this date Alcohol Amount: 07/30/18 - states no use. Hx Substance Use: Yes Substance Use Type: Reports: None Substance Use Comment - Amount & Last Used: pt states he hasn't had a drink in 2 weeks Hx Tobacco Use: Yes Smoking Status (MU): Light Every Day Tobacco Smoker Type: Cigarettes Length of Time of Smoking/Using Tobacco: 5 years Have You Smoked in the Last Year: No Review of Systems Constitutional: Negative Negative: Fever, Chills Cardiovascular: Negative Respiratory: Negative Gastrointestinal: Negative Positive: Other - rib pain Neurological: Negative All Other Systems Reviewed And Are Negative: Yes Physical Exam Triage Information Reviewed: Yes Vital Signs On Initial Exam: Initial Vitals Temp Pulse Resp BP Pulse Ox 98.6 F 69 16 147/70 98 09/15/18 06:00 09/15/18 06:00 09/15/18 06:00 09/15/18 06:00 09/15/18 06:00 Vital Signs Reviewed: Yes Appearance: Positive: No Pain Distress - Pt. sitting up in bed in NAD. Answers questions appropriately. Is oriented to person, place, month and year. Skin: Positive: Warm, Dry Head/Face: Positive: Normal Head/Face Inspection Eyes: Positive: Normal, EOMI, SHAUN, Conjunctiva Clear Neck: Positive: Supple Respiratory/Lung Sounds: Positive: Clear to Auscultation, Breath Sounds Present Cardiovascular: Positive: Normal, RRR Abdomen Description: Positive: Nontender, Soft Musculoskeletal: Positive: Normal, Strength/ROM Intact Neurological: Positive: Normal, CN Intact II-III, Facial Symmetry, Speech Normal Psychiatric: Positive: Affect/Mood Appropriate - Nayeli Coma Scale Best Eye Response: 4 - Spontaneous Best Motor Response: 6 - Obeys Commands Best Verbal Response: 5 - Oriented Coma Scale Total: 15 Diagnostics - Vital Signs Vital Signs Temp Pulse Resp BP Pulse Ox 09/15/18 07:31 75 128/56 97 09/15/18 07:05 75 127/61 96 09/15/18 07:01 78 97/56 97 09/15/18 07:00 74 96 09/15/18 06:31 72 130/71 97 09/15/18 06:02 70 98 09/15/18 06:01 68 147/70 98 09/15/18 06:00 98.6 F 69 16 147/70 98 - Laboratory Lab Results: Lab Results 09/15/18 09/15/18 09/15/18 Range/Units 06:46 06:46 06:46 WBC 6.3 (3.5-10.8) 10^3/ul RBC 3.43 L (4.00-5.40) 10^6/ul Hgb 10.0 L (14.0-18.0) g/dl Hct 31 L (42-52) % MCV 92 (80-94) fL MCH 29 (27-31) pg MCHC 32 (31-36) g/dl RDW 21 H (10.5-15) % Plt Count 162 (150-450) 10^3/ul MPV 7.1 L (7.4-10.4) fL Neut % (Auto) 49.3 % Lymph % (Auto) 35.5 % Lucas % (Auto) 9.5 % Eos % (Auto) 4.3 % Baso % (Auto) 1.4 % Absolute Neuts (auto) 3.1 (1.5-7.7) 10^3/ul Absolute Lymphs (auto) 2.3 (1.0-4.8) 10^3/ul Absolute Monos (auto) 0.6 (0-0.8) 10^3/ul Absolute Eos (auto) 0.3 (0-0.6) 10^3/ul Absolute Basos (auto) 0.1 (0-0.2) 10^3/ul Absolute Nucleated RBC 0 10^3/ul Nucleated RBC % 0 Sodium 135 (135-145) mmol/L Potassium 4.2 (3.5-5.0) mmol/L Chloride 104 (101-111) mmol/L Carbon Dioxide 24 (22-32) mmol/L Anion Gap 7 (2-11) mmol/L BUN 9 (6-24) mg/dL Creatinine 0.95 (0.67-1.17) mg/dL Est GFR ( Amer) 97.5 (>60) Est GFR (Non-Af Amer) 80.6 (>60) BUN/Creatinine Ratio 9.5 (8-20) Glucose 119 H (70-100) mg/dL Calcium 8.8 (8.6-10.3) mg/dL Total Bilirubin 3.00 H (0.2-1.0) mg/dL AST 31 (13-39) U/L ALT 14 (7-52) U/L Alkaline Phosphatase 164 H (34-104) U/L Ammonia 80 H (16-53) mcmol/L Troponin I 0.00 (<0.04) ng/mL Total Protein 7.3 (6.4-8.9) g/dL Albumin 3.1 L (3.2-5.2) g/dL Globulin 4.2 H (2-4) g/dL Albumin/Globulin Ratio 0.7 L (1-3) Lipase 76 (11.0-82.0) U/L Serum Alcohol < 10 (<10) mg/dL Result Diagrams: 09/15/18 06:46 09/15/18 06:46 Lab Statement: Any lab studies that have been ordered have been reviewed, and results considered in the medical decision making process. Complex Multi-Symp Course/Dx Course Of Treatment: Pt. presenting with generalized tenderness. He has no focal deficits on exam. He is afebrile stable vital signs. We'll obtain basic laboratory, EKG, chest x-ray. Patient has no complaints today other than ongoing pain from his recent rib fractures. Labs are at pt.'s baseline. Chronically elevated ammonia level, on lactulose. CXR is shows recent rib fractures, without infiltrate or acute findings, reading per radiology. ECG done at 0635 shows a sinus rhythm of 68 bpm, normal axis, inverted t waves in anterior leads, prolonged qt interval, no ST elevation or depression, similar to prior tracing. Negative troponin. U/A shows RBCs with out bacteria or leukocytes, will send for culture. Pt. sleeping comfortably in ED. He was examined by Dr. Ashley as well. Attemtped to ambulate pt. numerous times in ED but he states he is having a hard time sitting up secondary to rib pain. Pt. was given a dose of toradol and ultram. Pt. notes he has help at home and would like to return there today .He does not he is going through a divorce and has been very stressed lately. Denies SI or HI. WIll dc home. Sister coming to pick him up. Close f.u with PCP and return to ED if sxs change or worsen. Pt. understands and agrees with plan. - Diagnoses Differential Diagnoses/HQI/PQRI: Aspiration, Metabolic Abnormality, Urinary Tract Infection Provider Diagnoses: Rib fractures, Generalized weakness Discharge - Sign-Out/Discharge Documenting (check all that apply): Patient Departure - Discharge Plan Condition: Good Disposition: HOME Patient Education Materials: Weakness (ED) Referrals: Rosie Noriega MD [Primary Care Provider] - Additional Instructions: Schedule a follow up appointment with your PCP Return to ER if symptoms change or worsen - Billing Disposition and Condition Condition: GOOD Disposition: Home
[2018-09-15] MEDS ORDERED: traMADol TAB* 50 MG PO ONE (09:52)
[2018-09-15] MEDS ORDERED: Ketorolac INJ* 30 MG/ML 1 ML VIAL IM ONE (10:30)
[2018-09-15 10:57] LABS: Urine Appearance Clear; Urine Blood 1+ (Negative); Urine Color Yellow; Urine Ketones 1+ (Negative); Urine Protein Negative (Negative); Urine Red Blood Cell 1+(3-5/hpf) (Absent); Urine Specific Gravity 1.011 (1.010-1.030); Urine Urobilinogen Negative (Negative); Urine White Blood Cell Absent (Absent)
[2018-09-15 11:28] VITALS: BP 123/65
== END 2018-09-15 11:24 | disposition home or self-care (01) ==
LOC: ED 05:56
DX: R53.1 Weakness (principal); S22.39XD Fracture of one rib, unspecified side, subsequent encounter for fracture with routine healing; W19.XXXD Unspecified fall, subsequent encounter; Z88.8 Allergy status to other drugs, medicaments and biological substances; Z91.030 Bee allergy status; F17.210 Nicotine dependence, cigarettes, uncomplicated
CPT/HCPCS: 36415; 71045; 80053; 80320; 81003; 81015; 82140; 83690; 84484; 85025; 93005; 99283; A9270-GY; G0480; J1885

== ENCOUNTER 2018-09-19 11:44 | Inpatient (IN) | payer BC ==
[2018-09-19] MEDS ORDERED: NS 0.9% 1000 ML* 1,000 ML IV ONE ×2 (11:49→18:31)
--- NOTE | 2018-09-19 12:13 | ED ---
Neurological HPI - HPI Summary HPI Summary: A 63 y/o male brought in by [facility] ambulance presents to [facility] with a chief complaint of weakness the morning of 09/19/18. He rates his pain as 8/10. Per EMS, the patient fell at home and was unable to get up even with the help of his sister. The patient also fell 10 days [employer] and broke his ribs. EMS reports that the patient has trouble moving his hands at times. He denies CP or SOB but claims that he hit his head. He is reportedly in liver failure and is taking lactulose. He claims that his last EtOH use was 13 weeks ago. - History of Current Complaint Chief Complaint: EDAltMentalStatus Stated Complaint: WEAKNESS/ALT MENTAL Time Seen by Provider: 09/19/18 11:49 Hx Obtained From: Patient, EMS Onset/Duration: Sudden Onset, Started hours ago, Still Present Timing: Constant Onset Severity: Severe Current Severity: Severe Pain Intensity: 8 Pain Scale Used: 0-10 Numeric Character: Lethargy - Additional Pertinent History Primary Care Physician: CARO - Allergy/Home Medications Allergies/Adverse Reactions: Allergies Allergy/AdvReac Type Severity Reaction Status Date / Time bee pollen Allergy Hives Verified 09/15/18 06:12 bee venom protein (honey bee) Allergy Hives Verified 09/15/18 06:12 lorazepam [From Ativan] Allergy See Comment Verified 09/15/18 06:12 sertraline Allergy Rash And Verified 09/15/18 06:12 Itching Home Medications: Home Medications Triamcinolone NASAL SPRAY* [Nasacort AQ Nasal [place]*] 1 spray ALT NARE DAILY [History Confirmed 09/19/18] hydrOXYzine HCL TAB* [Atarax 25 MG TAB*] 25 mg PO BID 09/19/18 [History Confirmed 09/19/18] PMH/Surg Hx/FS Hx/Imm Hx Endocrine/Hematology History: Reports: Hx Diabetes - elevated glucose after acute liver failure - diet controlled Denies: Hx Anticoagulant Therapy, Hx Thyroid Disease, Hx Anemia, Hx Unexplained Bleeding Cardiovascular History: Reports: Hx Hypercholesterolemia, Hx Hypertension Denies: Hx Aneurysm, Hx Angina, Hx Angioplasty, Hx Auto Implanted Cardiovert Defib, Hx Cardiac Arrest, Hx Cardiomegaly, Hx Congenital Heart Disease, Hx Congestive Heart Failure, Hx Coronary Artery Disease, Hx Deep Vein Thrombosis, Hx Embolism, Hx Hypotension, Hx Pacemaker/ICD, Hx Peripheral Vascular Disease, Hx Rheumatic Fever, Hx Syncope, Hx Valvular Heart Disease, Other Cardiovascular Problems/Disorders Respiratory History: Reports: Hx Asthma, Hx Chronic Bronchitis, Hx Seasonal Allergies - hay fever Denies: Hx Chronic Obstructive Pulmonary Disease (COPD), Hx Cystic Fibrosis, Hx Lung Cancer, Hx Pleural Effusion, Hx Pneumonia, Hx Pulmonary Edema, Hx Pulmonary Embolism, Hx Sleep Apnea, Other Respiratory Problems/Disorders GI History: Reports: Hx Cirrhosis, Hx Gall Bladder Disease, Hx Hiatal Hernia, Hx Ulcer Denies: Hx Crohn's Disease, Hx Diverticulosis, Hx Gastroesophageal Reflux Disease, Hx Gastrointestinal Bleed, Hx Irritable Bowel, Hx Jaundice, Hx Obstructive Bowel, Hx Ileostomy, Hx Pyloric Stenosis, Other GI Disorders History: Denies: Hx Dialysis, Hx Renal Disease Musculoskeletal History: Reports: Hx Arthritis - both knees, Hx Orthopedic Injury Denies: Hx Back Problems, Hx Bursitis, Hx Congenital Bone Abnormalities, Hx Fibromyalgia, Hx Gout, Hx Osteoporosis, Hx Scoliosis, Hx Tendonitis, Other Musculoskeletal History Sensory History: Reports: Hx Contacts or Glasses Denies: Hx Cataracts, Hx Eye Injury, Hx Eye Prosthesis, Hx Glaucoma, Hx Legally Blind, Hx Macular Degeneration, Hx Vision Problem, Hx Deafness, Hx Hearing Aid, Hx Hearing Problem, Other Sensory Impairments Opthamlomology History: Reports: Hx Contacts or Glasses Denies: Hx Cataracts, Hx Eye Injury, Hx Eye Prosthesis, Hx Glaucoma, Hx Legally Blind, Hx Macular Degeneration, Hx Vision Problem, Other Sensory Impairments Neurological History: Reports: Hx Headaches, Hx Seizures, Other Neuro Impairments/Disorders - Subdural Hematoma Denies: Hx Dementia Psychiatric History: Reports: Hx Depression, Hx Substance Abuse - ETOH Denies: Hx Anxiety, Hx Attention Deficit Hyperactivity Disorder, Hx Eating Disorder, Hx Panic Disorder, Hx Post Traumatic Stress Disorder, Hx Inpatient Treatment, Hx Community Mental Health Tx, Hx Schizophrenia, Hx Bipolar Disorder , Hx Suicide Attempt, Hx of Violent Episodes Against Others, Other Psychiatric Issues/Disorders - Cancer History Cancer Type, Location and Year: None reported - Surgical History Surgery Procedure, Year, and Place: RIGHT ANKLE ORIF. LEFT KNEE TENDON REPAIR. CHOLECYSECTOMY. APPENDECTOMY. TONSILECTOMY Hx Anesthesia Reactions: No Infectious Disease History: No Infectious Disease History: Reports: Hx of Known/Suspected MRSA Denies: Hx Clostridium Difficile, Hx Hepatitis, Hx Human Immunodeficiency Virus (HIV), Hx Shingles, Hx Tuberculosis, History Other Infectious Disease, Traveled Outside the [place] in Last 30 Days - Family History Known Family History: Negative: Cardiac Disease, Diabetes - Social History Alcohol Use: ETOH use this date Alcohol Amount: 07/30/18 - states no use. Hx Substance Use: Yes Substance Use Type: Reports: None Substance Use Comment - Amount & Last Used: pt states he hasn't had a drink in 2 weeks Hx Tobacco Use: Yes Smoking Status (MU): Light Every Day Tobacco Smoker Type: Cigarettes Length of Time of Smoking/Using Tobacco: 5 years Have You Smoked in the Last Year: No Review of Systems Negative: Fever Negative: Chest Pain Negative: Shortness Of Breath Positive: Other - Positive: patient reports hitting his head Positive: Weakness All Other Systems Reviewed And Are Negative: Yes Physical Exam - Summary Physical Exam Summary: VITAL SIGNS: Reviewed. GENERAL: Patient is a well-developed and nourished MALE who is lying comfortable in the stretcher. Patient is not in any acute respiratory distress. HEAD AND FACE: Ecchymosis left forehead orbital area. No sinus tenderness. EYES: PERRLA, EOMI x 2, No injected conjunctiva, no nystagmus. EARS: Hearing grossly intact. Ear canals and tympanic membranes are within normal limits. MOUTH: Oropharynx within normal limits. NECK: Supple, trachea is midline, no adenopathy, no JVD, no carotid bruit, no c- spine tenderness, neck with full ROM. CHEST: Symmetric, no tenderness at palpation LUNGS: Clear to auscultation bilaterally. No wheezing or crackles. CVS: Regular rate and rhythm, S1 and S2 present, no murmurs or gallops appreciated. ABDOMEN: Ventral hernia reproducible. Bowel sounds are normal. EXTREMITIES: FROM in all major joints, no edema, no cyanosis or clubbing. NEURO: Alert and oriented x 3. Lethargic, slow to answer questions but responds appropriately, SKIN: Mild jaundice GCS: 15 Triage Information Reviewed: Yes Vital Signs On Initial Exam: Initial Vitals Temp Pulse Resp BP Pulse Ox 98.7 F 72 16 137/62 96 09/19/18 11:48 09/19/18 11:48 09/19/18 11:48 09/19/18 11:48 09/19/18 11:48 Vital Signs Reviewed: Yes Diagnostics - Vital Signs Vital Signs Temp Pulse Resp BP Pulse Ox 09/19/18 11:48 98.7 F 72 16 137/62 96 - Laboratory Result Diagrams: 09/19/18 12:15 09/19/18 12:15 Lab Statement: Any lab studies that have been ordered have been reviewed, and results considered in the medical decision making process. - Radiology CXR Radiology Interpretation Completed By: Radiologist Summary of Radiographic Findings: Suboptimal inspiration with mild associated subsegmental atelectasis. ED physician has reviewed this imaging report. - CT Brain CT Interpretation Completed By: Radiologist Summary of CT Findings: 1. NO EVIDENCE FOR ACUTE INTRACRANIAL ABNORMALITY. 2. BILATERAL ENCEPHALOMALACIA IN THE INFERIOR PORTIONS OF THE FRONTAL LOBES, UNCHANGED. ED physician has reviewed this imaging report. - EKG 12:29 Cardiac Rate: NL - 75 bpm EKG Rhythm: Sinus Rhythm Summary of EKG Findings: no ST elevations. Similar to previous EKG done . Course/Dx - Course Assessment/Plan: A 63 y/o male brought in by [facility] ambulance presents to [facility] with a chief complaint of weakness the morning of 09/19/18. Per EMS, the patient fell at home and was unable to get up even with the help of his sister. The patient also fell 10 days [employer] and broke his ribs. EMS reports that the patient has trouble moving his hands at times. He denies CP or SOB but claims that he hit his head. He is reportedly in liver failure and is taking lactulose. He claims that his last EtOH use was 13 weeks ago. Blood work without any significant abnormality except for slight chronic anemia, sodium 133 , chloride 100, glucose 138 lactic acid is 2.3, ammonia level is 76, and albumin and globulin is 3.1 and 4.1. Urinalysis is negative for UTI, and urine toxicology is negative. Head CT impression: No evidence for acute intracranial abnormality. Bilateral encephalomalacia in the inferior posterior of the frontal lobes and change. Chest x-ray impression: Suboptimal inspiration with some mild associated 6 segmental atelectasis. In ED course the patient was given lactulose. I believe that the patient's lethargy and weakness secondary to hepatic encephalopathy. I discussed my physical exam and findings with Dr. Cantu from the hospital services and he accepted the patient for admission. The patient is stable at this point the patient is alert. - Diagnoses Provider Diagnoses: Hepatic encephalopathy, Weakness - Physician Notifications Discussed Care Of Patient With: Uriah Cantu Time Discussed With Above Provider: 13:10 Instructed by Provider To: Admit As Inpatient Discharge - Sign-Out/Discharge Documenting (check all that apply): Patient Departure - Admit - Discharge Plan Condition: Fair Disposition: ADMITTED TO [facility] - Billing Disposition and Condition Condition: FAIR Disposition: Admitted to [facility] - Attestation Statements Document Initiated by Geraldineibe: Yes Documenting Scribe: Peter Estes Provider For Whom Corey is Documenting (Include Credential): Carlos Wilson MD Scribe Attestation: IPeter, scribed for Carlos Wilson MD on 09/19/18 at 2106. Scribe Documentation Reviewed: Yes Provider Attestation: The documentation as recorded by the Peter segundo accurately reflects the service I personally performed and the decisions made by me, Carlos Wilson MD Status of Scribe Document: Viewed
[2018-09-19 12:42] LABS: ABS Basophils 0.1 10^3/ul (0-0.2); ABS Eosinophils 0.3 10^3/ul (0-0.6); ABS Monocytes 0.5 10^3/ul (0-0.8); ABS Neutrophils 2.8 10^3/ul (1.5-7.7); ABS Nucleated RBC 0 10^3/ul; Eosinophil % 4.8 %; Hematocrit 31 % (42-52); Hemoglobin 9.7 g/dl (14.0-18.0); Lymphocyte % 35.8 %; Mean Corpuscular HGB Conc 32 g/dl (31-36); Mean Corpuscular Hemoglobin 29 pg (27-31); Mean Corpuscular Volume 90 fL (80-94); Nucleated Red Blood Cells % 0.1; Platelet Count 162 10^3/ul (150-450); Red Blood Count 3.41 10^6/ul (4.00-5.40); Red Cell Distribution Width 20 % (10.5-15); White Blood Count 5.7 10^3/ul (3.5-10.8)
[2018-09-19 12:51] LABS: ALT 13 U/L (7-52); AST 30 U/L (13-39); Albumin 3.1 g/dL (3.2-5.2); Albumin/Globulin Ratio 0.8 (1-3); Alkaline Phosphatase 165 U/L (34-104); Anion Gap 6 mmol/L (2-11); BUN/Creatinine Ratio 13.3 (8-20); Blood Urea Nitrogen 13 mg/dL (6-24); CO2 Carbon Dioxide 27 mmol/L (22-32); Calcium 8.8 mg/dL (8.6-10.3); Chloride 100 mmol/L (101-111); Creatine Kinase 147 U/L (10-223); EGFR Non-African American 77.8 (>60); Globulin 4.1 g/dL (2-4); Glucose 138 mg/dL (70-100); Potassium 4.3 mmol/L (3.5-5.0); Sodium 133 mmol/L (135-145); Total Protein 7.2 g/dL (6.4-8.9)
[2018-09-19] MEDS ORDERED: Ketorolac INJ* 30 MG/ML 1 ML VIAL IV PUSH ONE (13:23)
[2018-09-19 13:53] LABS: Acetaminophen < 15 mcg/mL; Alcohol < 10 mg/dL (<10); Salicylate < 2.50 mg/dL (<30)
[2018-09-19 13:57] LABS: Urine Appearance Clear; Urine Bilirubin Negative (Negative); Urine Blood Negative (Negative); Urine Color Amber; Urine Glucose Negative (Negative); Urine Ketones 1+ (Negative); Urine Nitrite Negative (Negative); Urine Protein Negative (Negative); Urine Urobilinogen Positive (Negative)
[2018-09-19 14:06] LABS: TSH (Thyroid Stimulating Horm) 1.32 mcIU/mL (0.34-5.60)
[2018-09-19 14:21] LABS: Barbiturates Urine Screen None Detected (None Detect); Benzodiazepine Urine Screen None Detected (None Detect); Urine Cannabinoids Screen None Detected (None Detect)
[2018-09-19] MEDS ORDERED: Albuterol HFA INHALER* 8 gm MDI INH PRN (14:33)
[2018-09-19] MEDS: Acetaminophen TAB* 325 MG PO PRN ×2 (17:01→21:36)
[2018-09-19 18:38] LABS: INR 1.36 (0.77-1.02)
[2018-09-19] MEDS ORDERED: hydrOXYzine HCL TAB* 25 MG PO SCH (21:00)
[2018-09-19] MEDS: RiFAXimin* 550 MG TAB PO SCH (21:35)
[2018-09-19] MEDS: levETIRAcetam TAB* 500 MG PO SCH (21:35)
[2018-09-19] MEDS: Gabapentin CAP(*) 300 MG PO SCH (21:36)
[2018-09-19] MEDS: Magnesium Oxide TAB* 400 MG PO SCH (21:36)
[2018-09-19] MEDS: Heparin VIAL(*) 5000 UNITS/ML VIAL (FIVE THOUSAND) SUBCUT SCH (21:37)
[2018-09-19] MEDS: NS 0.9% 1000 ML* 1,000 ML IV SCH (21:41)
[2018-09-20] MEDS: Heparin VIAL(*) 5000 UNITS/ML VIAL (FIVE THOUSAND) SUBCUT SCH ×2 (06:25→13:46)
[2018-09-20 07:23] LABS: ABS Basophils 0.1 10^3/ul (0-0.2); ABS Eosinophils 0.3 10^3/ul (0-0.6); ABS Monocytes 0.4 10^3/ul (0-0.8); ABS Neutrophils 2.1 10^3/ul (1.5-7.7); ABS Nucleated RBC 0 10^3/ul; Eosinophil % 6.2 %; Hematocrit 25 % (42-52); Hemoglobin 8.1 g/dl (14.0-18.0); Mean Corpuscular HGB Conc 32 g/dl (31-36); Mean Corpuscular Hemoglobin 29 pg (27-31); Mean Corpuscular Volume 90 fL (80-94); Mean Platelet Volume 6.7 fL (7.4-10.4); Nucleated Red Blood Cells % 0.1; Platelet Count 115 10^3/ul (150-450); Red Blood Count 2.82 10^6/ul (4.00-5.40); Red Cell Distribution Width 20 % (10.5-15); White Blood Count 4.9 10^3/ul (3.5-10.8)
[2018-09-20 07:29] LABS: INR 1.36 (0.77-1.02)
[2018-09-20] MEDS: Spironolactone TAB* 25 MG PO SCH (07:35)
[2018-09-20] MEDS: Folic Acid TAB* 1 MG PO SCH (07:36)
[2018-09-20] MEDS: RiFAXimin* 550 MG TAB PO SCH ×2 (07:36→20:58)
[2018-09-20] MEDS: levETIRAcetam TAB* 500 MG PO SCH ×2 (07:36→20:58)
[2018-09-20] MEDS: Citalopram TAB* 20 MG PO SCH (07:36)
[2018-09-20] MEDS: Propranolol TAB* 10 MG PO SCH (07:36)
[2018-09-20] MEDS: Cyanocobalamin TAB* 500 MCG PO SCH (07:36)
[2018-09-20] MEDS: Omeprazole CAP* 20 MG PO SCH (07:36)
[2018-09-20] MEDS: Magnesium Oxide TAB* 400 MG PO SCH ×2 (07:36→20:58)
[2018-09-20] MEDS: Furosemide TAB* 40 MG PO SCH (07:36)
[2018-09-20 07:37] LABS: BUN/Creatinine Ratio 10.1 (8-20); Calcium 8.3 mg/dL (8.6-10.3); EGFR Non-African American 86.9 (>60); Potassium 3.8 mmol/L (3.5-5.0)
[2018-09-20] MEDS: Acetaminophen TAB* 325 MG PO PRN ×3 (07:41→20:58)
[2018-09-20] MEDS: NS 0.9% 1000 ML* 1,000 ML IV SCH ×2 (08:02→18:41)
--- NOTE | 2018-09-20 09:08 | HP ---
CC: Rosie Noriega MD * HISTORY AND PHYSICAL: DATE OF ADMISSION: 09/19/18. PROVIDER: Siobhan Hayens NP. PRIMARY CARE PROVIDER: Rosie Noriega MD. ATTENDING PHYSICIAN: Uriah Cantu MD * (DICTATED BY DYLAN MASSEY) CHIEF COMPLAINT: 1. Weakness. 2. Falls. HISTORY OF PRESENT ILLNESS: Mr. Mata is a 63-year-old male with a past medical history significant for cirrhosis of liver from alcoholism, history of subdural hematoma, hypertension, asthma, depression, seizures, and history of stroke who presented to the emergency room today for evaluation of weakness and falls. The patient reports that he has fallen a couple of times in the past several days. He reports that he is currently taking his lactulose 15 mL twice a day. He does report a headache and increased fatigue. He also reports some dizziness with the falls. Denies any loss of consciousness. Denies any neck pain or head pain. Due to his weakness and falls, we were asked to see and evaluate him for admission. PAST MEDICAL HISTORY: Significant for: 1. Alcoholic liver cirrhosis. 2. History of subdural hematoma. 3. Hypertension. 4. Asthma. 5. History of depression. 6. Seizures. 7. Umbilical hernia. 8. History of CVA. 9. History of elevated ammonia level. 10. History of hepatic encephalopathy. PAST SURGICAL HISTORY: 1. Cholecystectomy. 2. Appendectomy. 3. Tonsillectomy. 4. Left knee surgery. 5. ORIF of the left ankle. HOME MEDICATIONS: Include: 1. Vitamin B12 500 mcg p.o. daily. 2. Albuterol HFA inhaler two puffs q.4 hours as needed. 3. Folic acid 1 mg p.o. daily. 4. Lexapro 10 mg p.o. daily. 5. Epi 0.3 mg IM as needed. 6. Gabapentin 300 mg p.o. at bedtime. 7. Furosemide 40 mg p.o. daily. 8. Lactulose 30 mL b.i.d. with meals. 9. Keppra 500 mg b.i.d. 10. Spironolactone 100 mg p.o. daily. 11. Rifaximin 550 mg p.o. b.i.d. 12. Omeprazole 20 mg p.o. daily. 13. Propranolol 10 mg p.o. daily. 14. Magnesium oxide 400 mg p.o. b.i.d. 15. Atarax 25 mg p.o. b.i.d. not taking 16. Nasacort one spray to alternate naris. ALLERGIES: Allergy to BEES, ATIVAN, and ZOLOFT. FAMILY HISTORY: Mother had a history of stroke and is . Father is alive at age 91. SOCIAL HISTORY: The patient smokes occasionally. He denies any alcohol use for the past 13 days. Surrogate decision maker is his sister Cassandra. He is a full code. REVIEW OF SYSTEMS: There is no documented fever, he denies any significant weight change. There is no double vision. No ear discharge, no rhinorrhea, denies any sore throat. Denies any chest pain or shortness of breath. The patient does report dizziness and increased fatigue. He denies any nocturnal dyspnea or orthopnea. He denies any abdominal pain. He denies nausea, vomiting , or diarrhea. He denies any dysuria, urinary frequency. He denies any seizures or loss of consciousness. He denies any pruritus or skin ulceration. Review of 14 systems completed, all others negative. PHYSICAL EXAMINATION GENERAL: At this time, Mr. Mata is a chronically ill appearing 63-year-old male who is lying on the stretcher in the emergency room. He does not appear to be in any acute distress. He does appear fatigued. VITAL SIGNS: Blood pressure 114/58, pulse 64, respirations 16, O2 saturation 97 % on room air, temperature 98.7. HEENT: Head is atraumatic, normocephalic. Eyes: EOMs are intact. Sclerae are not pale. Oral mucosa appears to be dry. No oropharyngeal erythema. NECK: Supple. LUNGS: Clear to auscultation bilaterally, diminished in the bases. No wheezes , rales, or rhonchi. HEART: S1, S2. Regular rate and rhythm. No murmurs, rubs, or gallops. ABDOMEN: Soft, rounded, and nontender. Bowel sounds are present x4. He does have an umbilical hernia. EXTREMITIES: Pulses are +2 bilaterally. He is able to move all four extremities with 5/5 strength. NEUROLOGIC: He appears fatigued, soft spoken, and drowsy. He has no gross focal deficits. SKIN: Intact. He does have multiple bruises noted in his extremities and does have some ecchymoses noted to the left eyelid and small abrasion noted to the base of the left index finger. DIAGNOSTIC STUDIES/LAB DATA: WBCs are 5.7, RBCs 3.41, hemoglobin 9.7, hematocrit was 31, platelet count 162. INR 1.36. ABG pH was 7.50, pCO2 was 34 , pO2 was 78, base excess was 3.3. Sodium 133, potassium 4.3, chloride 100, carbon dioxide was 27, anion gap was 6, BUN was 13, creatinine 0.98, glucose was 138, lactic acid initially was 2.3, repeat lactic acid at 1958 hours was 3.1 , calcium 8.8, magnesium 2.0. Total bilirubin 3.10, ASTs were 30, ALTs were 13 , alkaline phosphatase was 165, ammonia level was 76. Albumin 3.1. TSH was 1.32. Urine pH was 6.0; specific gravity 1.020; urine protein was negative, ketones were 1+, blood negative, nitrites negative, bilirubin was negative, urobilinogen was positive; urine leukocyte esterase was negative; glucose was negative; ascorbic acid negative. He had a CT of brain. Radiologist's impression: No evidence of acute intracranial abnormality. Bilateral encephalomalacia in the inferior portion of the frontal lobes is unchanged. Chest x-ray. Radiologist's impression: Suboptimal inspiration with mild associated subsegmental atelectases. ASSESSMENT AND PLAN: Mr. Mata is a 63-year-old male who presented to the emergency room with complaints of fall and weakness for several days, increased fatigue and decreased appetite. We were asked to see and evaluate him due to his weakness and fatigue. He will be admitted under observation for: 1. Weakness/fatigue. I suspect this is related to his hepatic encephalopathy. As his ammonia level is 76, he did receive some IV fluids in the emergency room. We will continue to monitor him. He was also given lactulose 30 mL. I will order PT evaluation. 2. History of liver cirrhosis with hepatic encephalopathy. The patient will continue on lactulose. I will increase that to 30 mL t.i.d. I will repeat ammonia level in the a.m. The patient will also continue on Rifaximin 550 mg p.o. b.i.d. We will continue with his propranolol, Aldactone, and Lasix as previously prescribed. 3. Lactic acidosis. I suspect this lactic acid level is elevated due to his chronic liver cirrhosis. He did receive some fluids. I will get blood cultures. His urine is within normal limits. I suspect this is not related to sepsis but to his hepatic cirrhosis of the liver. We will continue to monitor this. 4. High ammonia level. We will continue with lactulose t.i.d. and repeat an ammonia level in the a.m. 5. History of subdural hematoma. Not an active issue. CT of the brain was negative. 6. Hypertension. We will continue his meds as previously prescribed. 7. Asthma. Lungs are clear. He can have Albuterol as needed for shortness of breath. 8. Depression. We will continue with supportive care. 9. History of seizure. We will continue on Keppra as previously prescribed. 10. Fluids, electrolytes, and nutrition: He can have heart-healthy, decaf okay diet. 11. DVT prophylaxis: He will be placed on heparin subcu. 12. Code status: He is full code. TIME SPENT: Time spent on this admission was approximately 75 minutes, greater than half of that time was spent with the patient obtaining my history and physical, the other half of the time was spent going over my plan of care and implementing my plan of care. I have discussed this with my attending, Dr. Uriah Cantu; he is in agreement with my plan. SIOBHAN HAYNES NP [id number]/[facility] #: [id number] MARILUZ
--- NOTE | 2018-09-20 12:21 | CONSULT ---
Palliative / Hospice Consult Ordering Provider: Uriah Cantu - PCP Rosie Noriega - Subjective Code Status: DNR Advance Directives Location: In Chart MOLST Part A Completed: Yes Date: 08/19/18 - DARCI Bennett completed MOLST Part E Completed:: Yes Date: 08/19/18 - DARCI Bennett completed - History or Present Illness History or Present Illness: 63 yo male bella who presented to ER s/p fall. Pt lives with his sister who feels he needs more supervision than she can provide. He has spent time in [facility] in the past. His other medical problems include h/o subdural hematom, HTN, asthma, seizures, depression and h/o CVA. CT brain shows no acute event and bilateral encephalomalacia, ekg prolonged QT, CXR mild atelectasis. Nutritional status old albumin 3.1, INR 1.36, ammonia 76, plt 115, t francie 3 & EGFR 86.9 and no weight loss. MELD score is 17 about an 8% mortality rate. Pt is pleasant but not completely aware of his medical issues but he did know he had completed a MOLST form. He is not compliant with his medications. Lab Values: Abnormal Lab Results 09/19/18 09/19/18 09/19/18 12:15 12:15 12:15 WBC 5.7 RBC 3.41 L Hgb 9.7 L Hct 31 L MCV 90 MCH 29 MCHC 32 RDW 20 H Plt Count 162 MPV 7.0 L Neut % (Auto) 49.1 Lymph % (Auto) 35.8 [place] % (Auto) 9.1 Eos % (Auto) 4.8 Baso % (Auto) 1.2 Absolute Neuts (auto) 2.8 Absolute Lymphs (auto) 2.0 Absolute Monos (auto) 0.5 Absolute Eos (auto) 0.3 Absolute Basos (auto) 0.1 Absolute Nucleated RBC 0 Nucleated RBC % 0.1 INR (Anticoag Therapy) ABG pH ABG pCO2 ABG pO2 ABG HCO3 ABG O2 Saturation ABG Base Excess Sodium 133 L Potassium 4.3 Chloride 100 L Carbon Dioxide 27 Anion Gap 6 BUN 13 Creatinine 0.98 Est GFR ( Amer) 94.1 Est GFR (Non-Af Amer) 77.8 BUN/Creatinine Ratio 13.3 Glucose 138 H Lactic Acid 2.3 H* Calcium 8.8 Magnesium 2.0 Total Bilirubin 3.10 H AST 30 ALT 13 Alkaline Phosphatase 165 H Ammonia Total Creatine Kinase 147 Troponin I 0.00 Total Protein 7.2 Albumin 3.1 L Globulin 4.1 H Albumin/Globulin Ratio 0.8 L TSH 1.32 Urine Color Urine Appearance Urine pH Ur Specific [place] Urine Protein Urine Ketones Urine Blood Urine Nitrate Urine Bilirubin Urine Urobilinogen Ur Leukocyte Esterase Urine Glucose Urine Ascorbic Acid Salicylates < 2.50 Urine Opiates Screen Acetaminophen < 15 Ur Barbiturates Screen Ur Phencyclidine Scrn Ur Amphetamines Screen U Benzodiazepines Scrn Urine Cocaine Screen U Cannabinoids Screen Serum Alcohol < 10 09/19/18 09/19/18 09/19/18 12:15 13:02 13:42 WBC RBC Hgb Hct MCV MCH MCHC RDW Plt Count MPV Neut % (Auto) Lymph % (Auto) [place] % (Auto) Eos % (Auto) Baso % (Auto) Absolute Neuts (auto) Absolute Lymphs (auto) Absolute Monos (auto) Absolute Eos (auto) Absolute Basos (auto) Absolute Nucleated RBC Nucleated RBC % INR (Anticoag Therapy) ABG pH 7.50 H ABG pCO2 34 L ABG pO2 78 L ABG HCO3 27.5 ABG O2 Saturation 97.8 ABG Base Excess 3.3 H Sodium Potassium Chloride Carbon Dioxide Anion Gap BUN Creatinine Est GFR ( Amer) Est GFR (Non-Af Amer) BUN/Creatinine Ratio Glucose Lactic Acid Calcium Magnesium Total Bilirubin AST ALT Alkaline Phosphatase Ammonia 76 H Total Creatine Kinase Troponin I Total Protein Albumin Globulin Albumin/Globulin Ratio TSH Urine Color Cathie Urine Appearance Clear Urine pH 6.0 Ur Specific [place] 1.020 Urine Protein Negative Urine Ketones 1+ A Urine Blood Negative Urine Nitrate Negative Urine Bilirubin Negative Urine Urobilinogen Positive A Ur Leukocyte Esterase Negative Urine Glucose Negative Urine Ascorbic Acid * A Salicylates Urine Opiates Screen Acetaminophen Ur Barbiturates Screen Ur Phencyclidine Scrn Ur Amphetamines Screen U Benzodiazepines Scrn Urine Cocaine Screen U Cannabinoids Screen Serum Alcohol 09/19/18 09/19/18 09/19/18 13:42 18:08 19:58 WBC RBC Hgb Hct MCV MCH MCHC RDW Plt Count MPV Neut % (Auto) Lymph % (Auto) [place] % (Auto) Eos % (Auto) Baso % (Auto) Absolute Neuts (auto) Absolute Lymphs (auto) Absolute Monos (auto) Absolute Eos (auto) Absolute Basos (auto) Absolute Nucleated RBC Nucleated RBC % INR (Anticoag Therapy) 1.36 H ABG pH ABG pCO2 ABG pO2 ABG HCO3 ABG O2 Saturation ABG Base Excess Sodium Potassium Chloride Carbon Dioxide Anion Gap BUN Creatinine Est GFR ( Amer) Est GFR (Non-Af Amer) BUN/Creatinine Ratio Glucose Lactic Acid 3.1 H* Calcium Magnesium Total Bilirubin AST ALT Alkaline Phosphatase Ammonia Total Creatine Kinase Troponin I Total Protein Albumin Globulin Albumin/Globulin Ratio TSH Urine Color Urine Appearance Urine pH Ur Specific [place] Urine Protein Urine Ketones Urine Blood Urine Nitrate Urine Bilirubin Urine Urobilinogen Ur Leukocyte Esterase Urine Glucose Urine Ascorbic Acid Salicylates Urine Opiates Screen None detected Acetaminophen Ur Barbiturates Screen None detected Ur Phencyclidine Scrn None detected Ur Amphetamines Screen None detected U Benzodiazepines Scrn None detected Urine Cocaine Screen None detected U Cannabinoids Screen None detected Serum Alcohol 09/20/18 09/20/18 09/20/18 01:17 07:15 07:15 WBC 4.9 RBC 2.82 L Hgb 8.1 L Hct 25 L MCV 90 MCH 29 MCHC 32 RDW 20 H Plt Count 115 L MPV 6.7 L Neut % (Auto) 43.5 Lymph % (Auto) 41.0 [place] % (Auto) 7.9 Eos % (Auto) 6.2 Baso % (Auto) 1.4 Absolute Neuts (auto) 2.1 Absolute Lymphs (auto) 2.0 Absolute Monos (auto) 0.4 Absolute Eos (auto) 0.3 Absolute Basos (auto) 0.1 Absolute Nucleated RBC 0 Nucleated RBC % 0.1 INR (Anticoag Therapy) ABG pH ABG pCO2 ABG pO2 ABG HCO3 ABG O2 Saturation ABG Base Excess Sodium 136 Potassium 3.8 Chloride 107 Carbon Dioxide 24 Anion Gap 5 BUN 9 Creatinine 0.89 Est GFR ( Amer) 105.1 Est GFR (Non-Af Amer) 86.9 BUN/Creatinine Ratio 10.1 Glucose 97 Lactic Acid 2.1 H* Calcium 8.3 L Magnesium Total Bilirubin AST ALT Alkaline Phosphatase Ammonia Total Creatine Kinase Troponin I Total Protein Albumin Globulin Albumin/Globulin Ratio TSH Urine Color Urine Appearance Urine pH Ur Specific [place] Urine Protein Urine Ketones Urine Blood Urine Nitrate Urine Bilirubin Urine Urobilinogen Ur Leukocyte Esterase Urine Glucose Urine Ascorbic Acid Salicylates Urine Opiates Screen Acetaminophen Ur Barbiturates Screen Ur Phencyclidine Scrn Ur Amphetamines Screen U Benzodiazepines Scrn Urine Cocaine Screen U Cannabinoids Screen Serum Alcohol 09/20/18 09/20/18 09/20/18 07:15 10:05 11:28 WBC RBC Hgb Hct MCV MCH MCHC RDW Plt Count MPV Neut % (Auto) Lymph % (Auto) [place] % (Auto) Eos % (Auto) Baso % (Auto) Absolute Neuts (auto) Absolute Lymphs (auto) Absolute Monos (auto) Absolute Eos (auto) Absolute Basos (auto) Absolute Nucleated RBC Nucleated RBC % INR (Anticoag Therapy) 1.36 H ABG pH ABG pCO2 ABG pO2 ABG HCO3 ABG O2 Saturation ABG Base Excess Sodium Potassium Chloride Carbon Dioxide Anion Gap BUN Creatinine Est GFR ( Amer) Est GFR (Non-Af Amer) BUN/Creatinine Ratio Glucose Lactic Acid Calcium Magnesium Total Bilirubin AST ALT Alkaline Phosphatase Ammonia TNP 114 H Total Creatine Kinase Troponin I Total Protein Albumin Globulin Albumin/Globulin Ratio TSH Urine Color Urine Appearance Urine pH Ur Specific [place] Urine Protein Urine Ketones Urine Blood Urine Nitrate Urine Bilirubin Urine Urobilinogen Ur Leukocyte Esterase Urine Glucose Urine Ascorbic Acid Salicylates Urine Opiates Screen Acetaminophen Ur Barbiturates Screen Ur Phencyclidine Scrn Ur Amphetamines Screen U Benzodiazepines Scrn Urine Cocaine Screen U Cannabinoids Screen Serum Alcohol Laboratory Last Values WBC 4.9 10^3/ul (3.5-10.8) 09/20/18 07:15 RBC 2.82 10^6/ul (4.00-5.40) L 09/20/18 07:15 Hgb 8.1 g/dl (14.0-18.0) L 09/20/18 07:15 Hct 25 % (42-52) L 09/20/18 07:15 MCV 90 fL (80-94) 09/20/18 07:15 MCH 29 pg (27-31) 09/20/18 07:15 MCHC 32 g/dl (31-36) 09/20/18 07:15 RDW 20 % (10.5-15) H 09/20/18 07:15 Plt Count 115 10^3/ul (150-450) L 09/20/18 07:15 MPV 6.7 fL (7.4-10.4) L 09/20/18 07:15 Neut % (Auto) 43.5 % 09/20/18 07:15 Lymph % (Auto) 41.0 % 09/20/18 07:15 [place] % (Auto) 7.9 % 09/20/18 07:15 Eos % (Auto) 6.2 % 09/20/18 07:15 Baso % (Auto) 1.4 % 09/20/18 07:15 Absolute Neuts (auto) 2.1 10^3/ul (1.5-7.7) 09/20/18 07:15 Absolute Lymphs (auto) 2.0 10^3/ul (1.0-4.8) 09/20/18 07:15 Absolute Monos (auto) 0.4 10^3/ul (0-0.8) 09/20/18 07:15 Absolute Eos (auto) 0.3 10^3/ul (0-0.6) 09/20/18 07:15 Absolute Basos (auto) 0.1 10^3/ul (0-0.2) 09/20/18 07:15 Absolute Nucleated RBC 0 10^3/ul 09/20/18 07:15 Nucleated RBC % 0.1 09/20/18 07:15 INR (Anticoag Therapy) 1.36 (0.77-1.02) H 09/20/18 07:15 ABG pH 7.50 (7.35-7.45) H 09/19/18 13:02 ABG pCO2 34 mmHg (35-45) L 09/19/18 13:02 ABG pO2 78 mmHg (80-100) L 09/19/18 13:02 ABG HCO3 27.5 mmol/L (19-31) 09/19/18 13:02 ABG O2 Saturation 97.8 % (95-98) 09/19/18 13:02 ABG Base Excess 3.3 (-2.0-2.0) H 09/19/18 13:02 Sodium 136 mmol/L (135-145) 09/20/18 07:15 Potassium 3.8 mmol/L (3.5-5.0) 09/20/18 07:15 Chloride 107 mmol/L (101-111) 09/20/18 07:15 Carbon Dioxide 24 mmol/L (22-32) 09/20/18 07:15 Anion Gap 5 mmol/L (2-11) 09/20/18 07:15 BUN 9 mg/dL (6-24) 09/20/18 07:15 Creatinine 0.89 mg/dL (0.67-1.17) 09/20/18 07:15 Est GFR ( Amer) 105.1 (>60) 09/20/18 07:15 Est GFR (Non-Af Amer) 86.9 (>60) 09/20/18 07:15 BUN/Creatinine Ratio 10.1 (8-20) 09/20/18 07:15 Glucose 97 mg/dL (70-100) 09/20/18 07:15 Lactic Acid 2.1 mmol/L (0.5-2.0) H* 09/20/18 01:17 Calcium 8.3 mg/dL (8.6-10.3) L 09/20/18 07:15 Magnesium 2.0 mg/dL (1.9-2.7) 09/19/18 12:15 Total Bilirubin 3.10 mg/dL (0.2-1.0) H 09/19/18 12:15 AST 30 U/L (13-39) 09/19/18 12:15 ALT 13 U/L (7-52) 09/19/18 12:15 Alkaline Phosphatase 165 U/L (34-104) H 09/19/18 12:15 Ammonia 114 mcmol/L (16-53) H 09/20/18 11:28 Total Creatine Kinase 147 U/L (10-223) 09/19/18 12:15 Troponin I 0.00 ng/mL (<0.04) 09/19/18 12:15 Total Protein 7.2 g/dL (6.4-8.9) 09/19/18 12:15 Albumin 3.1 g/dL (3.2-5.2) L 09/19/18 12:15 Globulin 4.1 g/dL (2-4) H 09/19/18 12:15 Albumin/Globulin Ratio 0.8 (1-3) L 09/19/18 12:15 TSH 1.32 mcIU/mL (0.34-5.60) 09/19/18 12:15 Urine Color Cathie 09/19/18 13:42 Urine Appearance Clear 09/19/18 13:42 Urine pH 6.0 (5-9) 09/19/18 13:42 Ur Specific [place] 1.020 (1.010-1.030) 09/19/18 13:42 Urine Protein Negative (Negative) 09/19/18 13:42 Urine Ketones 1+ (Negative) A 09/19/18 13:42 Urine Blood Negative (Negative) 09/19/18 13:42 Urine Nitrate Negative (Negative) 09/19/18 13:42 Urine Bilirubin Negative (Negative) 09/19/18 13:42 Urine Urobilinogen Positive (Negative) A 09/19/18 13:42 Ur Leukocyte Esterase Negative (Negative) 09/19/18 13:42 Urine Glucose Negative (Negative) 09/19/18 13:42 Urine Ascorbic Acid * (Negative) A 09/19/18 13:42 Salicylates < 2.50 mg/dL (<30) 09/19/18 12:15 Urine Opiates Screen None detected (None Detect) 09/19/18 13:42 Acetaminophen < 15 mcg/mL 09/19/18 12:15 Ur Barbiturates Screen None detected (None Detect) 09/19/18 13:42 Ur Phencyclidine Scrn None detected (None Detect) 09/19/18 13:42 Ur Amphetamines Screen None detected (None Detect) 09/19/18 13:42 U Benzodiazepines Scrn None detected (None Detect) 09/19/18 13:42 Urine Cocaine Screen None detected (None Detect) 09/19/18 13:42 U Cannabinoids Screen None detected (None Detect) 09/19/18 13:42 Serum Alcohol < 10 mg/dL (<10) 09/19/18 12:15 - Objective Active Medications: Acetaminophen (Tylenol Tab*) 650 mg PO Q4H PRN PRN Reason: FEVER/PAIN Last Admin: 09/20/18 07:41 Dose: 650 mg Albuterol (Ventolin Hfa Inhaler*) 2 puff INH Q4H PRN PRN Reason: SHORTNESS OF BREATH Citalopram Hydrobromide (Celexa Tab*) 20 mg PO DAILY [facility] Last Admin: 09/20/18 07:36 Dose: 20 mg Cyanocobalamin (Vitamin B12 Tab*) 500 mcg PO DAILY [facility] Last Admin: 09/20/18 07:36 Dose: 500 mcg Folic Acid (Folvite Tab*) 1 mg PO DAILY [facility] Last Admin: 09/20/18 07:36 Dose: 1 mg Furosemide (Lasix Tab*) 40 mg PO DAILY [facility] Last Admin: 09/20/18 07:36 Dose: 40 mg Gabapentin (Neurontin Cap(*)) 300 mg PO BEDTIME [facility] Last Admin: 09/19/18 21:36 Dose: 300 mg Heparin Sodium (Porcine) (Heparin Vial(*)) 5,000 units SUBCUT Q8HR [facility] Last Admin: 09/20/18 06:25 Dose: 5,000 units Sodium Chloride (Ns 0.9% 1000 Ml*) 1,000 mls @ 100 mls/hr IV PER RATE [facility] Last Admin: 09/20/18 08:02 Dose: 100 mls/hr Lactulose (Lactulose*) 30 ml PO TID [facility] Last Admin: 09/20/18 07:35 Dose: 30 ml Levetiracetam (Keppra Tab*) 500 mg PO BID [facility] Last Admin: 09/20/18 07:36 Dose: 500 mg Magnesium Oxide (Magox 400 Tab*) 400 mg PO BID [facility] Last Admin: 09/20/18 07:36 Dose: 400 mg Omeprazole (Prilosec Cap*) 20 mg PO DAILY [facility] Last Admin: 09/20/18 07:36 Dose: 20 mg Propranolol HCl (Inderal Tab*) 10 mg PO DAILY [facility] Last Admin: 09/20/18 07:36 Dose: 10 mg Rifaximin (Xifaxan*) 550 mg PO BID [facility] Last Admin: 09/20/18 07:36 Dose: 550 mg Spironolactone (Aldactone Tab*) 100 mg PO DAILY [facility] Last Admin: 09/20/18 07:35 Dose: 100 mg Vital Signs: Vital Signs: Temp Pulse Resp BP Pulse Ox 99.0 F 65 20 119/48 96 09/20/18 07:35 09/20/18 07:35 09/20/18 07:35 09/20/18 07:35 09/20/18 07:35 Patient Weight: Weight 92.533 kg Intake and Output: Intake & Output 09/18/18 09/19/18 09/20/18 09/21/18 06:59 06:59 06:59 06:59 Intake Total 837 230 Output Total 550 Balance 287 230 Weight 92.533 kg Intake: IV Fluids 837 NS (0.9%) 837 Oral 230 Output: Urine 550 Other: Estimated Void Medium ADLs: Meal Record Start: 09/19/18 15: 11 Freq: DAILY@0900,1400,1800 Status: Active Protocol: Created 09/19/18 15:11 System (Rec: 09/19/18 15:11 System [id number]) Document 09/19/18 18:00 [id number] (Rec: 09/19/18 20:59 [id number] [id number]) Document 09/20/18 09:00 [id number] (Rec: 09/20/18 10:50 [id number] MED-C09) Intake and Output Start: 09/19/18 11: 51 Freq: Status: Active Protocol: Created 09/19/18 11:51 System (Rec: 09/19/18 11:51 System [id number]) Intake and Output Start: 09/19/18 15: 11 Freq: DAILY@0600,1400,2200 Status: Active Protocol: Created 09/19/18 15:11 System (Rec: 09/19/18 15:11 System [id number]) Document 09/20/18 05:32 [id number] (Rec: 09/20/18 05:32 [id number] MED-C13) Head: Normal Eyes: No Scleral Icterus Ears/Nose/Mouth/Throat: Clear Oropharnyx Neck: NL Appearance and Movements; NL JVP Cardiovascular: NL Sounds; No Murmurs; No JVD Respiratory: Clear to Auscultation Abdominal: NL Sounds; No Tenderness; No Distention Extremities: No Edema Neurological: Alert and Oriented x 3 - Assessment Assessment: 63 yo with cirrhosis and multiple falls. At this time he is not eligible for hospice. If he lives with his sister an option is to enroll him in the [facility] program otherwise he may need SNF for med management and observation so he doesn 't fall. - Plan Consult Plan (MU): Palliative - Time On Unit Date of Evaluation: 09/20/18 Hospice Consult Time in: 11:00 Hospice Consult Time Out: 12:00 Hospice Consult Time Total: 60 > 50% of Time Spend In Counseling or Coordinating Care: Yes
--- NOTE | 2018-09-20 14:54 | CONSULT ---
Consult Consult: S: Psychiatry is asked to evaluate capacity in this 63 y.o. , white male former alcoholic with a history of cirrhosis and recurrent hepatic encephalopathy. The patient was recently discharged from [facility] on with a plan to stay with his sister and receive visiting nurse services. In speaking with his sister, Cassandra, who is a nurse here at [facility], he was extremely difficult to manage with disturbance in cognition, gait and self- care. She feels he warrants placement for his safety and I see that she is listed as his current HCP. On exam the patient is found in his room, laying propped up in bed, dressed in a patient gown. An old, healing contusion is on his right orbit. He is calm and cooperative, albeit somewhat confused about the nature of this admission. He is asked about the primary team's recommendation of SNF placement and he reacts negatively, stating that he did not like being at [facility] and would like to go home. I ask about the benefits of going to a nursing facility and the risks of refusing such. "I don't know...I could get an aide or something like that." O: middle-aged bearded, white male with cuevas-blue eyes and somewhat jaundiced complexion, dressed in a patient gown; limited grooming, cooperative; anxious mood with a corresponding anxious affect; denies SI or HI; insight and judgment poor given lack of self care; awake and alert; oriented to place time and situation; Scores 25/30 on MMSE losing points for day, date, attention and delayed recall A/P: Capacity: In my judgment, he lacks the capacity to make an informed decision about SNF placement based on his inability to demonstrate a reasonable understanding of the risk/benefit considerations of this intervention. Capacity is subject to change in these situations and psychiatry can be re- consulted in the event of any significant changes in his presentation/ situation. Thank you for the consult.
--- NOTE | 2018-09-20 19:20 | PN ---
Subjective Date of Service: 09/20/18 Interval History: Patient seen and examined. Seems forgetful but is appropriate. Asked about his ammonia level. Was not able to verbalize his need for additional testing of the ammonia level and titration of lactulose. Denies fever or chills, no chest pain , no SOB, no headache. Feels weak. Objective Active Medications: Acetaminophen (Tylenol Tab*) 650 mg PO Q4H PRN PRN Reason: FEVER/PAIN Last Admin: 09/20/18 13:46 Dose: 650 mg Albuterol (Ventolin Hfa Inhaler*) 2 puff INH Q4H PRN PRN Reason: SHORTNESS OF BREATH Citalopram Hydrobromide (Celexa Tab*) 20 mg PO DAILY [facility] Last Admin: 09/20/18 07:36 Dose: 20 mg Cyanocobalamin (Vitamin B12 Tab*) 500 mcg PO DAILY [facility] Last Admin: 09/20/18 07:36 Dose: 500 mcg Folic Acid (Folvite Tab*) 1 mg PO DAILY [facility] Last Admin: 09/20/18 07:36 Dose: 1 mg Furosemide (Lasix Tab*) 40 mg PO DAILY [facility] Last Admin: 09/20/18 07:36 Dose: 40 mg Gabapentin (Neurontin Cap(*)) 300 mg PO BEDTIME [facility] Last Admin: 09/19/18 21:36 Dose: 300 mg Heparin Sodium (Porcine) (Heparin Vial(*)) 5,000 units SUBCUT Q8HR [facility] Last Admin: 09/20/18 13:46 Dose: 5,000 units Sodium Chloride (Ns 0.9% 1000 Ml*) 1,000 mls @ 100 mls/hr IV PER RATE [facility] Last Admin: 09/20/18 18:41 Dose: 100 mls/hr Lactulose (Lactulose*) 30 ml PO TID [facility] Last Admin: 09/20/18 13:46 Dose: 30 ml Levetiracetam (Keppra Tab*) 500 mg PO BID [facility] Last Admin: 09/20/18 07:36 Dose: 500 mg Magnesium Oxide (Magox 400 Tab*) 400 mg PO BID [facility] Last Admin: 09/20/18 07:36 Dose: 400 mg Omeprazole (Prilosec Cap*) 20 mg PO DAILY [facility] Last Admin: 09/20/18 07:36 Dose: 20 mg Propranolol HCl (Inderal Tab*) 10 mg PO DAILY [facility] Last Admin: 09/20/18 07:36 Dose: 10 mg Rifaximin (Xifaxan*) 550 mg PO BID [facility] Last Admin: 09/20/18 07:36 Dose: 550 mg Spironolactone (Aldactone Tab*) 100 mg PO DAILY [facility] Last Admin: 09/20/18 07:35 Dose: 100 mg Vital Signs - 8 hr 09/20/18 15:51 Temperature 98.3 F Pulse Rate 77 Respiratory 22 Rate Blood Pressure 116/48 (mmHg) O2 Sat by Pulse 95 Oximetry Oxygen Devices in Use Now: None Appearance: alert, NAD Eyes: No Scleral Icterus, PERRLA Ears/Nose/Mouth/Throat: NL Teeth, Lips, Gums, Mucous Membranes Moist Neck: NL Appearance and Movements; NL JVP, Trachea Midline Respiratory: Symmetrical Chest Expansion and Respiratory Effort, Clear to Auscultation Cardiovascular: NL Sounds; No Murmurs; No JVD, RRR, No Edema Abdominal: NL Sounds; No Tenderness; No Distention, - - large abdomen Extremities: No Clubbing, Cyanosis Skin: No Nodules or Sclerosis Neurological: Alert and Oriented x 3 Nutrition: Taking PO's Result Diagrams: 09/20/18 07:15 09/20/18 07:15 Diagnostic Imaging: Patient Name: EFREN KUMAR Medical Record#: [id number] Ordering Physician: Carlos Wilson MD Acct.#: [id number] : 1955 Age: 63 Sex: M Location: EMERGENCY DEPARTMENT Exam Date: 09/19/18 115 ADM Status: REG ER Order Information: CT BRAIN WO Accession Number: [id number] CPT: 77254 INDICATION: Lethargy. COMPARISON: Comparison is made with a prior CT of the brain from July 23, 2018. TECHNIQUE: Contiguous axial sections of the brain were obtained from the skull base to the vertex without contrast. FINDINGS: The ventricles, cisterns and sulci are enlarged consistent with diffuse atrophy. There are focal areas of encephalomalacia present in the inferior portions of both frontal lobes which are unchanged. No other focal abnormality or mass effect is seen. There is no evidence for hemorrhage. No significant focal osseous abnormality is seen. The visualized portion of the paranasal sinuses and mastoid air cells appear clear. IMPRESSION: 1. NO EVIDENCE FOR ACUTE INTRACRANIAL ABNORMALITY. 2. BILATERAL ENCEPHALOMALACIA IN THE INFERIOR PORTIONS OF THE FRONTAL LOBES, UNCHANGED. <Electronically signed by Dirk Sánchez MD in OV> 09/19/18 1321 Dictated By: Dirk Sánchez MD Dictated Date/Time: 09/19/18 1321 Transcribed Date/Time: 09/19/18 1318 Copy to: Assess/Plan/Problems-Billing Assessment: This is a 63 year old male with complicated medical history, including alcohol abuse, cirrhosis, TBI, that presents to ER with complaint of weakness after being discharged from rehab. - Patient Problems (1) Alcoholic cirrhosis of liver with ascites Code(s): K70.31 - ALCOHOLIC CIRRHOSIS OF LIVER WITH ASCITES SNOMED Code(s): 678003549 Comment: - Ammonia on the rise, continue lactulose - Continue spironolactone, lasix, rifaximin, propranolol - LFTs at baseline - MELD=15, or 6.0% chance of mortality in 90 days - Supportive care (2) Altered mental status Code(s): R41.82 - ALTERED MENTAL STATUS, UNSPECIFIED SNOMED Code(s): 210300538 Comment: - Likely 2/2 encephalopathy from elevated ammonia and encephalomalacia from previous TBI/brain bleed. May also be vascular component 2/2 longstanding ETOH abuse - Consult with Dr. Carranza for capacity (3) Elevated lactic acid level Code(s): R79.89 - OTHER SPECIFIED ABNORMAL FINDINGS OF BLOOD CHEMISTRY SNOMED Code(s): 0964746 Comment: - Persistently elevated with no clear source for infection - Trending down with IVF - Likely 2/2 metabolic disturbances from liver failure (4) Full code status Code(s): Z78.9 - OTHER SPECIFIED HEALTH STATUS SNOMED Code(s): 562242494 (5) DVT prophylaxis Code(s): YMH8158 - SNOMED Code(s): 136442052 Comment: - DC heparin, INR elevated, change to SCDs for bleeding risk Status and Disposition: Dispo TBD, will likely need STR again. Per Psychiatry, patient does not have capacity for medical decision making. Discussed with sister Cassandra (HC proxy) who understands that his neurologic decline is largely due to a combination of liver failure and chronic encephalomalcia. Per Hospice notes, patient does not meet hospice criteria at this time. Would recommend re-eval in 30 days.
[2018-09-20] MEDS: Gabapentin CAP(*) 300 MG PO SCH (20:58)
[2018-09-21] MEDS: NS 0.9% 1000 ML* 1,000 ML IV SCH ×2 (04:52→17:06)
[2018-09-21] MEDS: Furosemide TAB* 40 MG PO SCH (08:26)
[2018-09-21] MEDS: Propranolol TAB* 10 MG PO SCH (08:26)
[2018-09-21] MEDS: Folic Acid TAB* 1 MG PO SCH (08:26)
[2018-09-21] MEDS: Magnesium Oxide TAB* 400 MG PO SCH ×2 (08:26→20:54)
[2018-09-21] MEDS: Omeprazole CAP* 20 MG PO SCH (08:26)
[2018-09-21] MEDS: RiFAXimin* 550 MG TAB PO SCH ×2 (08:26→20:54)
[2018-09-21] MEDS: levETIRAcetam TAB* 500 MG PO SCH ×2 (08:26→20:54)
[2018-09-21] MEDS: Cyanocobalamin TAB* 500 MCG PO SCH (08:26)
[2018-09-21] MEDS: Citalopram TAB* 20 MG PO SCH (08:26)
[2018-09-21] MEDS: Acetaminophen TAB* 325 MG PO PRN ×2 (08:27→17:05)
[2018-09-21] MEDS: Spironolactone TAB* 25 MG PO SCH (08:27)
--- NOTE | 2018-09-21 16:11 | PN ---
Subjective Date of Service: 09/21/18 Interval History: Patient seen and examined. Periods of confusion, no acute overnight events noted. Patient ambulating with PT this morning. Denies fevers, chills, no abdominal pain. No further complaints. Objective Active Medications: Acetaminophen (Tylenol Tab*) 650 mg PO Q4H PRN PRN Reason: FEVER/PAIN Last Admin: 09/21/18 08:27 Dose: 650 mg Albuterol (Ventolin Hfa Inhaler*) 2 puff INH Q4H PRN PRN Reason: SHORTNESS OF BREATH Citalopram Hydrobromide (Celexa Tab*) 20 mg PO DAILY [facility] Last Admin: 09/21/18 08:26 Dose: 20 mg Cyanocobalamin (Vitamin B12 Tab*) 500 mcg PO DAILY [facility] Last Admin: 09/21/18 08:26 Dose: 500 mcg Folic Acid (Folvite Tab*) 1 mg PO DAILY [facility] Last Admin: 09/21/18 08:26 Dose: 1 mg Furosemide (Lasix Tab*) 40 mg PO DAILY [facility] Last Admin: 09/21/18 08:26 Dose: 40 mg Gabapentin (Neurontin Cap(*)) 300 mg PO BEDTIME [facility] Last Admin: 09/20/18 20:58 Dose: 300 mg Sodium Chloride (Ns 0.9% 1000 Ml*) 1,000 mls @ 100 mls/hr IV PER RATE [facility] Last Admin: 09/21/18 04:52 Dose: 100 mls/hr Lactulose (Lactulose*) 30 ml PO Q6H [facility] Last Admin: 09/21/18 12:15 Dose: 30 ml Levetiracetam (Keppra Tab*) 500 mg PO BID [facility] Last Admin: 09/21/18 08:26 Dose: 500 mg Magnesium Oxide (Magox 400 Tab*) 400 mg PO BID [facility] Last Admin: 09/21/18 08:26 Dose: 400 mg Omeprazole (Prilosec Cap*) 20 mg PO DAILY [facility] Last Admin: 09/21/18 08:26 Dose: 20 mg Propranolol HCl (Inderal Tab*) 10 mg PO DAILY [facility] Last Admin: 09/21/18 08:26 Dose: 10 mg Rifaximin (Xifaxan*) 550 mg PO BID [facility] Last Admin: 09/21/18 08:26 Dose: 550 mg Spironolactone (Aldactone Tab*) 100 mg PO DAILY [facility] Last Admin: 09/21/18 08:27 Dose: 100 mg Vital Signs - 8 hr 09/21/18 11:10 Temperature 98.1 F Pulse Rate 86 Respiratory 18 Rate Blood Pressure 124/54 (mmHg) O2 Sat by Pulse 98 Oximetry Oxygen Devices in Use Now: None Appearance: alert,NAD Eyes: No Scleral Icterus, PERRLA Ears/Nose/Mouth/Throat: Clear Oropharnyx, Mucous Membranes Moist Neck: NL Appearance and Movements; NL JVP, Trachea Midline Respiratory: Symmetrical Chest Expansion and Respiratory Effort, Clear to Auscultation, - Cardiovascular: NL Sounds; No Murmurs; No JVD, RRR, No Edema Abdominal: - - large/obese, umbilical hernia noted, BSx4 Extremities: No Edema, No Clubbing, Cyanosis Skin: No Rash or Ulcers Neurological: Alert and Oriented x 3 Nutrition: Taking PO's Result Diagrams: 09/20/18 07:15 09/20/18 07:15 Microbiology and Other Data: Microbiology 09/20/18 07:15 Aerobic Blood Culture - Preliminary Blood Venous No Growth Day 1 Anaerobic Blood Culture - Preliminary No Growth Day 1 09/20/18 01:17 Aerobic Blood Culture - Preliminary Blood Venous No Growth Day 1 Anaerobic Blood Culture - Preliminary No Growth Day 1 Diagnostic Imaging: Patient Name: EFREN KUMAR Medical Record#: [id number] Ordering Physician: Carlos Wilson MD Acct.#: [id number] : 1955 Age: 63 Sex: M Location: EMERGENCY DEPARTMENT Exam Date: 09/19/18 1152 ADM Status: REG ER Order Information: CT BRAIN WO Accession Number: [id number] CPT: 95028 INDICATION: Lethargy. COMPARISON: Comparison is made with a prior CT of the brain from July 23, 2018. TECHNIQUE: Contiguous axial sections of the brain were obtained from the skull base to the vertex without contrast. FINDINGS: The ventricles, cisterns and sulci are enlarged consistent with diffuse atrophy. There are focal areas of encephalomalacia present in the inferior portions of both frontal lobes which are unchanged. No other focal abnormality or mass effect is seen. There is no evidence for hemorrhage. No significant focal osseous abnormality is seen. The visualized portion of the paranasal sinuses and mastoid air cells appear clear. IMPRESSION: 1. NO EVIDENCE FOR ACUTE INTRACRANIAL ABNORMALITY. 2. BILATERAL ENCEPHALOMALACIA IN THE INFERIOR PORTIONS OF THE FRONTAL LOBES, UNCHANGED. <Electronically signed by Dirk Sánchez MD in [place]> 09/19/18 1321 Dictated By: Dirk Sánchez MD Dictated Date/Time: 09/19/18 1321 Transcribed Date/Time: 09/19/18 1318 Copy to: Assess/Plan/Problems-Billing Assessment: This is a 63 year old male with complicated medical history, including alcohol abuse, cirrhosis, TBI, that presents to ER with complaint of weakness after being discharged from rehab. - Patient Problems (1) Alcoholic cirrhosis of liver with ascites Code(s): K70.31 - ALCOHOLIC CIRRHOSIS OF LIVER WITH ASCITES SNOMED Code(s): 039031453 Comment: - Ammonia 126 today, increased lactulose to Q6h with persistent weakness and falls after discharge from rehab - Follow PT evaluation - Continue spironolactone, lasix, rifaximin, propranolol - LFTs at baseline - MELD=15, or 6.0% chance of mortality in 90 days - Supportive care (2) Altered mental status Code(s): R41.82 - ALTERED MENTAL STATUS, UNSPECIFIED SNOMED Code(s): 685832978 Comment: - Likely 2/2 encephalopathy from elevated ammonia and encephalomalacia from previous TBI/brain bleed. May also be vascular component 2/2 longstanding ETOH abuse - Consult with Dr. Carranza for capacity, per note, patient does not have capacity for medical decisio making (3) Elevated lactic acid level Code(s): R79.89 - OTHER SPECIFIED ABNORMAL FINDINGS OF BLOOD CHEMISTRY SNOMED Code(s): 3774810 Comment: - Persistently elevated with no clear source for infection - Trending down with IVF - Likely 2/2 metabolic disturbances from liver failure (4) Full code status Code(s): Z78.9 - OTHER SPECIFIED HEALTH STATUS SNOMED Code(s): 079527457 (5) DVT prophylaxis Code(s): ZGR4692 - SNOMED Code(s): 181754477 Comment: - DC heparin, INR elevated, change to SCDs for bleeding risk Status and Disposition: Dispo TBD, will likely need STR again. Per Psychiatry, patient does not have capacity for medical decision making. Discussed with sister Cassandra (HC proxy) who understands that his neurologic decline is largely due to a combination of liver failure and chronic encephalomalacia. Per Hospice notes, patient does not meet hospice criteria at this time. Would recommend re-eval in 30 days. Will discuss with SW and CM.
[2018-09-21] MEDS: Gabapentin CAP(*) 300 MG PO SCH (20:54)
[2018-09-22] MEDS: NS 0.9% 1000 ML* 1,000 ML IV SCH (03:11)
[2018-09-22] MEDS: Folic Acid TAB* 1 MG PO SCH (08:09)
[2018-09-22] MEDS: Propranolol TAB* 10 MG PO SCH (08:09)
[2018-09-22] MEDS: levETIRAcetam TAB* 500 MG PO SCH ×2 (08:09→21:06)
[2018-09-22] MEDS: Furosemide TAB* 40 MG PO SCH (08:09)
[2018-09-22] MEDS: Cyanocobalamin TAB* 500 MCG PO SCH (08:09)
[2018-09-22] MEDS: RiFAXimin* 550 MG TAB PO SCH ×2 (08:09→21:07)
[2018-09-22] MEDS: Omeprazole CAP* 20 MG PO SCH (08:09)
[2018-09-22] MEDS: Spironolactone TAB* 25 MG PO SCH (08:09)
[2018-09-22] MEDS: Citalopram TAB* 20 MG PO SCH (08:09)
[2018-09-22] MEDS: Magnesium Oxide TAB* 400 MG PO SCH ×2 (08:09→21:07)
[2018-09-22] MEDS: Acetaminophen TAB* 325 MG PO PRN (11:06)
--- NOTE | 2018-09-22 13:27 | PN ---
Subjective Date of Service: 09/22/18 Interval History: HOSPITALIST PROGRESS NOTE Patient seen and examined at bedside. Care reviewed and d/w Pilar Hendricks RN. He offers no new complaints today. Doesn't want to go back to [facility] because "they only have old people there, I was the youngest person in there". Family History: Unchanged from Admission Social History: Unchanged from Admission Past Medical History: Unchanged from Admission Objective Active Medications: Acetaminophen (Tylenol Tab*) 650 mg PO Q4H PRN PRN Reason: FEVER/PAIN Last Admin: 09/22/18 11:06 Dose: 650 mg Albuterol (Ventolin Hfa Inhaler*) 2 puff INH Q4H PRN PRN Reason: SHORTNESS OF BREATH Citalopram Hydrobromide (Celexa Tab*) 20 mg PO DAILY [facility] Last Admin: 09/22/18 08:09 Dose: 20 mg Cyanocobalamin (Vitamin B12 Tab*) 500 mcg PO DAILY [facility] Last Admin: 09/22/18 08:09 Dose: 500 mcg Folic Acid (Folvite Tab*) 1 mg PO DAILY [facility] Last Admin: 09/22/18 08:09 Dose: 1 mg Furosemide (Lasix Tab*) 40 mg PO DAILY [facility] Last Admin: 09/22/18 08:09 Dose: 40 mg Gabapentin (Neurontin Cap(*)) 300 mg PO BEDTIME [facility] Last Admin: 09/21/18 20:54 Dose: 300 mg Lactulose (Lactulose*) 30 ml PO Q6H [facility] Last Admin: 09/22/18 11:06 Dose: 30 ml Levetiracetam (Keppra Tab*) 500 mg PO BID [facility] Last Admin: 09/22/18 08:09 Dose: 500 mg Magnesium Oxide (Magox 400 Tab*) 400 mg PO BID [facility] Last Admin: 09/22/18 08:09 Dose: 400 mg Omeprazole (Prilosec Cap*) 20 mg PO DAILY [facility] Last Admin: 09/22/18 08:09 Dose: 20 mg Propranolol HCl (Inderal Tab*) 10 mg PO DAILY [facility] Last Admin: 09/22/18 08:09 Dose: 10 mg Rifaximin (Xifaxan*) 550 mg PO BID [facility] Last Admin: 09/22/18 08:09 Dose: 550 mg Spironolactone (Aldactone Tab*) 100 mg PO DAILY [facility] Last Admin: 09/22/18 08:09 Dose: 100 mg Vital Signs - 8 hr 09/22/18 09/22/18 09/22/18 07:34 08:00 11:28 Temperature 98.0 F 97.7 F Pulse Rate 69 77 Respiratory 18 18 16 Rate Blood Pressure 129/60 111/49 (mmHg) O2 Sat by Pulse 98 98 Oximetry Oxygen Devices in Use Now: None Appearance: Pleasant gentleman lying in bed in NAD. Eyes: No Scleral Icterus Ears/Nose/Mouth/Throat: Mucous Membranes Moist Abdominal: NL Sounds; No Tenderness; No Distention - obese Neurological: Alert and Oriented x 3, NL Muscle Strength and Tone Result Diagrams: 09/20/18 07:15 09/20/18 07:15 Assess/Plan/Problems-Billing Assessment: This is a 63 year old male with complicated medical history, including alcohol abuse, cirrhosis, TBI, that presents to ER with complaint of weakness after being discharged from rehab. - Patient Problems (1) Hepatic encephalopathy Comment: - Secondary to non compliance with Lactulose. - Continue Rifaximin. - Ammonia still elevated, but clinically, encephalopathy is resolved. - As per Psych, he does not have capacity to refuse SNF placement at this time. (2) DVT prophylaxis Comment: - SCDs. (3) Full code status Status and Disposition: Dispo TBD, will likely need STR again. Per Psychiatry, patient does not have capacity for medical decision making.
[2018-09-22] MEDS: Gabapentin CAP(*) 300 MG PO SCH (21:06)
[2018-09-23] MEDS: Spironolactone TAB* 25 MG PO SCH (10:53)
[2018-09-23] MEDS: levETIRAcetam TAB* 500 MG PO SCH ×2 (10:54→21:36)
[2018-09-23] MEDS: Magnesium Oxide TAB* 400 MG PO SCH ×2 (10:54→21:37)
[2018-09-23] MEDS: Citalopram TAB* 20 MG PO SCH (10:54)
[2018-09-23] MEDS: Cyanocobalamin TAB* 500 MCG PO SCH (10:54)
[2018-09-23] MEDS: Propranolol TAB* 10 MG PO SCH (10:55)
[2018-09-23] MEDS: Omeprazole CAP* 20 MG PO SCH (10:55)
[2018-09-23] MEDS: Folic Acid TAB* 1 MG PO SCH (10:55)
[2018-09-23] MEDS: Furosemide TAB* 40 MG PO SCH (10:55)
[2018-09-23] MEDS: RiFAXimin* 550 MG TAB PO SCH ×2 (10:55→21:36)
[2018-09-23] MEDS: Acetaminophen TAB* 325 MG PO PRN ×2 (11:05→21:37)
--- NOTE | 2018-09-23 12:20 | PN ---
Subjective Date of Service: 09/23/18 Interval History: HOSPITALIST PROGRESS NOTE Patient seen and examined at bedside. Care reviewed and d/w Dorene Adamson RN. He offers no new complaints today. Agreeable with SNF placement now, but would prefer [facility] [place]. Family History: Unchanged from Admission Social History: Unchanged from Admission Past Medical History: Unchanged from Admission Objective Active Medications: Acetaminophen (Tylenol Tab*) 650 mg PO Q4H PRN PRN Reason: FEVER/PAIN Last Admin: 09/23/18 11:05 Dose: 650 mg Albuterol (Ventolin Hfa Inhaler*) 2 puff INH Q4H PRN PRN Reason: SHORTNESS OF BREATH Citalopram Hydrobromide (Celexa Tab*) 20 mg PO DAILY [facility] Last Admin: 09/23/18 10:54 Dose: 20 mg Cyanocobalamin (Vitamin B12 Tab*) 500 mcg PO DAILY [facility] Last Admin: 09/23/18 10:54 Dose: 500 mcg Folic Acid (Folvite Tab*) 1 mg PO DAILY [facility] Last Admin: 09/23/18 10:55 Dose: 1 mg Furosemide (Lasix Tab*) 40 mg PO DAILY [facility] Last Admin: 09/23/18 10:55 Dose: 40 mg Gabapentin (Neurontin Cap(*)) 300 mg PO BEDTIME [facility] Last Admin: 09/22/18 21:06 Dose: 300 mg Lactulose (Lactulose*) 30 ml PO Q6H [facility] Last Admin: 09/23/18 10:52 Dose: 30 ml Levetiracetam (Keppra Tab*) 500 mg PO BID [facility] Last Admin: 09/23/18 10:54 Dose: 500 mg Magnesium Oxide (Magox 400 Tab*) 400 mg PO BID [facility] Last Admin: 09/23/18 10:54 Dose: 400 mg Omeprazole (Prilosec Cap*) 20 mg PO DAILY [facility] Last Admin: 09/23/18 10:55 Dose: 20 mg Propranolol HCl (Inderal Tab*) 10 mg PO DAILY [facility] Last Admin: 09/23/18 10:55 Dose: 10 mg Rifaximin (Xifaxan*) 550 mg PO BID [facility] Last Admin: 09/23/18 10:55 Dose: 550 mg Spironolactone (Aldactone Tab*) 100 mg PO DAILY [facility] Last Admin: 12/17/18 10:53 Dose: 100 mg Vital Signs - 8 hr 09/23/18 09/23/18 07:46 08:00 Temperature 98.8 F Pulse Rate 68 Respiratory 18 16 Rate Blood Pressure 138/58 (mmHg) O2 Sat by Pulse 99 Oximetry Oxygen Devices in Use Now: None Appearance: Pleasant gentleman lying in bed in NAD Eyes: No Scleral Icterus Ears/Nose/Mouth/Throat: Mucous Membranes Moist Neck: Trachea Midline Abdominal: NL Sounds; No Tenderness; No Distention - obese Neurological: Alert and Oriented x 3, NL Muscle Strength and Tone Result Diagrams: 09/20/18 07:15 09/20/18 07:15 Assess/Plan/Problems-Billing Assessment: This is a 63 year old male with complicated medical history, including alcohol abuse, cirrhosis, TBI, that presents to ER with complaint of weakness after being discharged from rehab. - Patient Problems (1) Hepatic encephalopathy Comment: - Secondary to non compliance with Lactulose. - Continue Rifaximin. - Ammonia still elevated, but clinically, encephalopathy is resolved. - As per Psych, he does not have capacity to refuse SNF placement at this time. (2) DVT prophylaxis Comment: - SCDs. (3) Full code status Status and Disposition: Inpatient, awaiting STR again. Per Psychiatry, patient does not have capacity for medical decision making.
[2018-09-23] MEDS: Gabapentin CAP(*) 300 MG PO SCH (21:36)
[2018-09-24] MEDS: Cyanocobalamin TAB* 500 MCG PO SCH (10:26)
[2018-09-24] MEDS: Omeprazole CAP* 20 MG PO SCH (10:26)
[2018-09-24] MEDS: Furosemide TAB* 40 MG PO SCH (10:26)
[2018-09-24] MEDS: Spironolactone TAB* 25 MG PO SCH (10:26)
[2018-09-24] MEDS: Citalopram TAB* 20 MG PO SCH (10:26)
[2018-09-24] MEDS: RiFAXimin* 550 MG TAB PO SCH (10:26)
[2018-09-24] MEDS: Magnesium Oxide TAB* 400 MG PO SCH (10:26)
[2018-09-24] MEDS: levETIRAcetam TAB* 500 MG PO SCH (10:26)
[2018-09-24] MEDS: Folic Acid TAB* 1 MG PO SCH (10:26)
[2018-09-24] MEDS: Propranolol TAB* 10 MG PO SCH (10:26)
--- NOTE | 2018-09-24 13:38 | PN ---
Subjective Date of Service: 09/24/18 Interval History: HOSPITALIST PROGRESS NOTE Patient seen and examined at bedside. Care reviewed and d/w Dorene Adamson RN. He offers no new complaints, states this is the best he has felt "in a while". Pain is controlled, appetite is good, denies N/V, BMs are manageable (2 soft ones yesterday). Family History: Unchanged from Admission Social History: Unchanged from Admission Past Medical History: Unchanged from Admission Objective Active Medications: Acetaminophen (Tylenol Tab*) 650 mg PO Q4H PRN PRN Reason: FEVER/PAIN Last Admin: 09/23/18 21:37 Dose: 650 mg Albuterol (Ventolin Hfa Inhaler*) 2 puff INH Q4H PRN PRN Reason: SHORTNESS OF BREATH Citalopram Hydrobromide (Celexa Tab*) 20 mg PO DAILY [facility] Last Admin: 09/24/18 10:26 Dose: 20 mg Cyanocobalamin (Vitamin B12 Tab*) 500 mcg PO DAILY [facility] Last Admin: 09/24/18 10:26 Dose: 500 mcg Folic Acid (Folvite Tab*) 1 mg PO DAILY [facility] Last Admin: 09/24/18 10:26 Dose: 1 mg Furosemide (Lasix Tab*) 40 mg PO DAILY [facility] Last Admin: 09/24/18 10:26 Dose: 40 mg Gabapentin (Neurontin Cap(*)) 300 mg PO BEDTIME [facility] Last Admin: 09/23/18 21:36 Dose: 300 mg Lactulose (Lactulose*) 30 ml PO Q6H [facility] Last Admin: 09/24/18 10:26 Dose: 30 ml Levetiracetam (Keppra Tab*) 500 mg PO BID [facility] Last Admin: 09/24/18 10:26 Dose: 500 mg Magnesium Oxide (Magox 400 Tab*) 400 mg PO BID [facility] Last Admin: 09/24/18 10:26 Dose: 400 mg Omeprazole (Prilosec Cap*) 20 mg PO DAILY [facility] Last Admin: 09/24/18 10:26 Dose: 20 mg Propranolol HCl (Inderal Tab*) 10 mg PO DAILY [facility] Last Admin: 09/24/18 10:26 Dose: 10 mg Rifaximin (Xifaxan*) 550 mg PO BID [facility] Last Admin: 09/24/18 10:26 Dose: 550 mg Spironolactone (Aldactone Tab*) 100 mg PO DAILY [facility] Last Admin: 09/24/18 10:26 Dose: 100 mg Vital Signs - 8 hr 09/24/18 09/24/18 09/24/18 07:39 08:00 11:34 Temperature 97.7 F 97.7 F Pulse Rate 64 82 Respiratory 16 16 16 Rate Blood Pressure 119/56 175/131 (mmHg) O2 Sat by Pulse 99 98 Oximetry 09/24/18 12:20 Temperature Pulse Rate 72 Respiratory Rate Blood Pressure 120/60 (mmHg) O2 Sat by Pulse Oximetry Oxygen Devices in Use Now: None Appearance: Pleasant gentleman sitting up in bed in NAD, eating breakfast Eyes: No Scleral Icterus Ears/Nose/Mouth/Throat: Mucous Membranes Moist Neck: Trachea Midline Respiratory: Symmetrical Chest Expansion and Respiratory Effort, Clear to Auscultation Cardiovascular: RRR - Normal S1 and S2 Abdominal: NL Sounds; No Tenderness; No Distention - obese Neurological: Alert and Oriented x 3, NL Muscle Strength and Tone Result Diagrams: 09/20/18 07:15 09/20/18 07:15 Assess/Plan/Problems-Billing Assessment: This is a 63 year old male with complicated medical history, including alcohol abuse, cirrhosis, TBI, that presents to ER with complaint of weakness after being discharged from rehab. - Patient Problems (1) Hepatic encephalopathy Comment: - Secondary to non compliance with Lactulose. - Continue Rifaximin. - Ammonia still elevated, but clinically, encephalopathy is resolved, so no indication to keep rechecking it - would recheck if he becomes confused again. - As per Psych, he does not have capacity to refuse SNF placement at this time. (2) DVT prophylaxis Comment: - SCDs. (3) Full code status Status and Disposition: Inpatient, awaiting STR again. Per Psychiatry, patient does not have capacity for medical decision making.
[2018-09-24 15:30] VITALS: BP 122/52
--- NOTE | 2018-09-24 15:53 | DS ---
CC: Dr. Rosie Noriega; Dr. Elidia Kahn at [facility] DATE OF ADMISSION: 09/19/2018. DATE OF DISCHARGE: 09/24/2018. DISCHARGE DIAGNOSES: 1. 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 2. Frequent falls. SECONDARY DIAGNOSES: 1. Alcohol abuse. 2. Alcoholic cirrhosis. 3. History of subdural hematoma. 4. Hypertension. 5. Asthma. 6. History of depression. 7. Seizures. 8. Umbilical hernia. 9. History of CVA. MEDICATIONS: 1. Acetaminophen 650 mg p.o. q.4 hours prn pain or fever. 2. Albuterol HFA two puffs inhaled q.4 hours prn shortness of breath. 3. Cyanocobalamin 500 mcg p.o. daily. 4. EpiPen 0.3 mg intramuscular once as needed for anaphylaxis. 5. Escitalopram 10 mg p.o. daily. 6. Folic Acid 1 mg p.o. daily. 7. Furosemide 40 mg p.o. daily. 8. Gabapentin 300 mg p.o. at bedtime. 9. Hydroxyzine 25 mg p.o. b.i.d. 10. Lactulose 30 ml p.o. q.8 hours. 11. Levetiracetam 500 mg p.o. b.i.d. 12. Magnesium Oxide 400 mg p.o. b.i.d. 13. Omeprazole 20 mg p.o. daily. 14. Propranolol 10 mg p.o. daily. 15. Lactulose 30 ml p.o. q.8 hours. 16. Rifaximin 550 mg p.o. b.i.d. 17. Spironolactone 100 mg p.o. daily. 18. Triamcinolone nasal spray one spray to alternate naris daily. HOSPITAL COURSE: Mr. Mata is a 63-year-old male with a past medical history as stated above who was admitted to [facility] from August 28 to September 05. At that time he had sustained a fall with left 6th through 11th rib fractures and was also found to be encephalopathic due to noncompliance with his Lactulose. This has been a repeat issue with multiple admissions (five admissions since July). At that time, the patient was transferred to [facility] to continue his rehabilitation process . On September 19, he returned to the emergency room for evaluation of weakness and falls. He had rec ently been discharged from [facility] on the 6th and apparently was not compliant with Lactulose on ce again. His ammonia on admission was 76 and Lactulose was increased to every six hours and he was continued on Rifaximin. He has some lactic acidosis on admission, probably secondary to dehydration and poor clearance in the setting of liver disease. There was no sign of active infection at this ti ia. The patient was continued on Lactulose and Rifaximin and although his ammonia trended up, his en cephalopathy has cleared and the patient is back at baseline. The patient was seen in consultation b y Palliative Care (Dr. Shahla Pascual) and her impression is that at this time the patient is not [facility] for hospice, but she felt that on discharge she could be enrolled on [facility] Program to [facility] e to follow him. When asked about his discharge plan, the patient [place], but he does not have a solid plan for that. He initially refused to return to [facility], but did not have any other safe discharge plan. For that reason, he was seen in consultation by Psychiatr y (Dr. Carranza) and he felt that the patient lacks the capacity to make an informed decision about SNF placement based on his inability to demonstrate a reasonable understanding of the risks, benefits, an d considerations of this intervention. At that point, his encephalopathy was much improved and the patient became agreeable with nursing christopher e placement for rehab. He is medically stable for discharge at this time. At this point, I have red ucing his Lactulose to 30 ml q.8 hours from q.6 hours and his mental status should continue to be mon itored. Usually the reason why he does not take Lactulose is that he starts to have frequent explosiv e diarrhea, so I think if we could keep him on the minimal dose that would prevent encephalopathy, ma leidy increase his adherence to treatment. The patient is medically stable for discharge at this time. PHYSICAL EXAMINATION: General: The patient is a pleasant gentleman, sitting up in bed in no acute d istress. Vital Signs: Temperature 97.7, heart rate 82, respiratory rate 16, oxygen saturation 98 per cent on room air, blood pressure 120/60. CVS: Normal S1, S2, regular rate and rhythm. Chest: [place]cam[place] th sounds bilaterally with no added sounds. Abdomen: Obese, soft, not tender. Bowel sounds are pre sent. Neuro: He is alert and oriented times three, able to move all four extremities. DIET: Heart healthy diet. ACTIVITIES: Continue PT and OT as tolerated. DISPOSITION: To [facility]. STATUS WHILE IN THE HOSPITAL: Inpatient. Please keep in mind this is a summarized version of this patient's hospital stay. If you need more in formation, please feel free to call me at or please obtain the full medical records. This discharge summary will also be used as the history and physical upon his admission to [facility]. Approximately 45 minutes were spent to complete this discharge. [id number]/CPS #: [id number]
== END 2018-09-24 16:00 | DRG 279 ==
LOC: ED 11:44 → MED 14:21 → OBSVTOIN 09-20 14:32
PROVIDERS: ADMIT Internal Medicine; ATTEND Internal Medicine
DX: K72.90 Hepatic failure, unspecified without coma (principal); E87.2 Acidosis; J98.11 Atelectasis; E11.9 Type 2 diabetes mellitus without complications; K44.9 Diaphragmatic hernia without obstruction or gangrene; M17.0 Bilateral primary osteoarthritis of knee; F32.9 Major depressive disorder, single episode, unspecified; F17.210 Nicotine dependence, cigarettes, uncomplicated; R58 Hemorrhage, not elsewhere classified; D64.9 Anemia, unspecified; G93.89 Other specified disorders of brain; R56.9 Unspecified convulsions; K70.31 Alcoholic cirrhosis of liver with ascites; K42.9 Umbilical hernia without obstruction or gangrene; I45.81 Long QT syndrome; W19.XXXA Unspecified fall, initial encounter; Y92.009 Unspecified place in unspecified non-institutional (private) residence as the place of occurrence of the external cause; F10.10 Alcohol abuse, uncomplicated; S60.411A Abrasion of left index finger, initial encounter; E86.0 Dehydration; E78.00 Pure hypercholesterolemia, unspecified; I10 Essential (primary) hypertension; J45.909 Unspecified asthma, uncomplicated; R40.2412 Glasgow coma scale score 13-15, at arrival to emergency department; Y90.9 Presence of alcohol in blood, level not specified; S00.83XA Contusion of other part of head, initial encounter; S05.12XA Contusion of eyeball and orbital tissues, left eye, initial encounter; K43.9 Ventral hernia without obstruction or gangrene; J42 Unspecified chronic bronchitis; Z66 Do not resuscitate; Z90.49 Acquired absence of other specified parts of digestive tract; Z88.8 Allergy status to other drugs, medicaments and biological substances; Z91.030 Bee allergy status; Z86.14 Personal history of Methicillin resistant Staphylococcus aureus infection; Z86.73 Personal history of transient ischemic attack (TIA), and cerebral infarction without residual deficits; Z82.3 Family history of stroke; Z87.820 Personal history of traumatic brain injury; Z91.14 Patient's other noncompliance with medication regimen; Z91.81 History of falling
CPT/HCPCS: 36415; 70450; 71045; 80048; 80053; 80307; 80320; 80329; 81003; 82140; 82550; 82803; 83605; 83735; 84443; 84484; 85025; 85610; 87040; 93005; 99283; A9270-GY; G0378; G0480; G8978-GP-CJ; G8979-GP-CI; J1644; J1885

== ENCOUNTER 2018-11-12 16:31 | Emergency (ER) | payer BC ==
--- NOTE | 2018-11-12 16:58 | ED ---
Altered Mental Status - HPI Summary HPI Summary: A 63 y/o male brought in by [facility] ambulance presents to [facility] with a chief complaint of confusion on 11/12/18. Per triage note, Sudha Snell report was that pt had high ammonia levels (137) from blood work drawn today. At triage the patient rated his pain as a 0/10 in severity. In the ED the patient is alert and oriented x2 as he did not know the place, thinking that [facility] was [facility]. However, the patient is able to say that the month is November in 2019 and he is able to recognize Dr. Wilson. The patient denies SOB, CP, abdominal pain and N/V. - History Of Current Complaint Chief Complaint: EDAltMentalStatus Stated Complaint: ELEVATED AMMONIA LEVEL Time Seen by Provider: 11/12/18 16:44 Hx Obtained From: Patient, EMS Onset/Duration: Still Present Timing: Constant, Lasting Hours Severity Initially: Mild Severity Currently: Mild Character: Confusion Aggravating Factor(s): Nothing Alleviating Factor(s): Nothing Associated Signs And Symptoms: Negative: Nausea, Vomiting - Allergies/Home Medications Allergies/Adverse Reactions: Allergies Allergy/AdvReac Type Severity Reaction Status Date / Time bee pollen Allergy Hives Verified 09/15/18 06:12 bee venom protein (honey bee) Allergy Hives Verified 09/15/18 06:12 lorazepam [From Ativan] Allergy See Comment Verified 09/15/18 06:12 sertraline Allergy Rash And Verified 09/15/18 06:12 Itching Home Medications: Home Medications Acetaminophen TAB* [Tylenol TAB*] 650 mg PO Q6HR PRN 11/12/18 [History Confirmed 11/12/18] PMH/Surg Hx/FS Hx/Imm Hx Endocrine/Hematology History: Reports: Hx Diabetes - elevated glucose after acute liver failure - diet controlled Denies: Hx Anticoagulant Therapy, Hx Thyroid Disease, Hx Anemia, Hx Unexplained Bleeding Cardiovascular History: Reports: Hx Hypercholesterolemia, Hx Hypertension Denies: Hx Aneurysm, Hx Angina, Hx Angioplasty, Hx Auto Implanted Cardiovert Defib, Hx Cardiac Arrest, Hx Cardiomegaly, Hx Congenital Heart Disease, Hx Congestive Heart Failure, Hx Coronary Artery Disease, Hx Deep Vein Thrombosis, Hx Embolism, Hx Hypotension, Hx Pacemaker/ICD, Hx Peripheral Vascular Disease, Hx Rheumatic Fever, Hx Syncope, Hx Valvular Heart Disease, Other Cardiovascular Problems/Disorders Respiratory History: Reports: Hx Asthma, Hx Chronic Bronchitis, Hx Seasonal Allergies - hay fever Denies: Hx Chronic Obstructive Pulmonary Disease (COPD), Hx Cystic Fibrosis, Hx Lung Cancer, Hx Pleural Effusion, Hx Pneumonia, Hx Pulmonary Edema, Hx Pulmonary Embolism, Hx Sleep Apnea, Other Respiratory Problems/Disorders GI History: Reports: Hx Cirrhosis, Hx Gall Bladder Disease, Hx Hiatal Hernia, Hx Ulcer Denies: Hx Crohn's Disease, Hx Diverticulosis, Hx Gastroesophageal Reflux Disease, Hx Gastrointestinal Bleed, Hx Irritable Bowel, Hx Jaundice, Hx Obstructive Bowel, Hx Ileostomy, Hx Pyloric Stenosis, Other GI Disorders History: Denies: Hx Dialysis, Hx Renal Disease Musculoskeletal History: Reports: Hx Arthritis - both knees, Hx Orthopedic Injury Denies: Hx Back Problems, Hx Bursitis, Hx Congenital Bone Abnormalities, Hx Fibromyalgia, Hx Gout, Hx Osteoporosis, Hx Scoliosis, Hx Tendonitis, Other Musculoskeletal History Sensory History: Reports: Hx Contacts or Glasses Denies: Hx Cataracts, Hx Eye Injury, Hx Eye Prosthesis, Hx Glaucoma, Hx Legally Blind, Hx Macular Degeneration, Hx Vision Problem, Hx Deafness, Hx Hearing Aid, Hx Hearing Problem, Other Sensory Impairments Opthamlomology History: Reports: Hx Contacts or Glasses Denies: Hx Cataracts, Hx Eye Injury, Hx Eye Prosthesis, Hx Glaucoma, Hx Legally Blind, Hx Macular Degeneration, Hx Vision Problem, Other Sensory Impairments Neurological History: Reports: Hx Headaches, Hx Seizures, Other Neuro Impairments/Disorders - Subdural Hematoma Denies: Hx Dementia Psychiatric History: Reports: Hx Depression, Hx Substance Abuse - ETOH Denies: Hx Anxiety, Hx Attention Deficit Hyperactivity Disorder, Hx Eating Disorder, Hx Panic Disorder, Hx Post Traumatic Stress Disorder, Hx Inpatient Treatment, Hx Community Mental Health Tx, Hx Schizophrenia, Hx Bipolar Disorder , Hx Suicide Attempt, Hx of Violent Episodes Against Others, Other Psychiatric Issues/Disorders - Cancer History Cancer Type, Location and Year: None reported - Surgical History Surgery Procedure, Year, and Place: RIGHT ANKLE ORIF. LEFT KNEE TENDON REPAIR. CHOLECYSECTOMY. APPENDECTOMY. TONSILECTOMY Hx Anesthesia Reactions: No Infectious Disease History: No Infectious Disease History: Reports: Hx of Known/Suspected MRSA Denies: Hx Clostridium Difficile, Hx Hepatitis, Hx Human Immunodeficiency Virus (HIV), Hx Shingles, Hx Tuberculosis, History Other Infectious Disease, Traveled Outside the [place] in Last 30 Days - Family History Known Family History: Negative: Cardiac Disease, Diabetes - Social History Alcohol Use: ETOH use this date Alcohol Amount: 07/30/18 - states no use. Hx Substance Use: Yes Substance Use Type: Reports: None Substance Use Comment - Amount & Last Used: pt states he hasn't had a drink in 2 weeks Hx Tobacco Use: Yes Smoking Status (MU): Light Every Day Tobacco Smoker Type: Cigarettes Length of Time of Smoking/Using Tobacco: 5 years Have You Smoked in the Last Year: No Review of Systems Negative: Fever Negative: Chest Pain Negative: Shortness Of Breath Negative: Abdominal Pain, Vomiting, Nausea Neurological: Other - Positive: alert and oriented x2 not knowing the place All Other Systems Reviewed And Are Negative: Yes Physical Exam - Summary Physical Exam Summary: VITAL SIGNS: Reviewed. GENERAL: Patient is a well-developed and nourished MALE who is lying comfortable in the stretcher. Patient is not in any acute respiratory distress. HEAD AND FACE: No signs of trauma. No ecchymosis, hematomas or skull depressions. No sinus tenderness. EYES: PERRLA, EOMI x 2, No injected conjunctiva, no nystagmus. EARS: Hearing grossly intact. Ear canals and tympanic membranes are within normal limits. MOUTH: Oropharynx within normal limits. NECK: Supple, trachea is midline, no adenopathy, no JVD, no carotid bruit, no c- spine tenderness, neck with full ROM. CHEST: Symmetric, no tenderness at palpation LUNGS: Clear to auscultation bilaterally. No wheezing or crackles. CVS: Regular rate and rhythm, S1 and S2 present, no murmurs or gallops appreciated. ABDOMEN: Abdomen is distended with positive bowel sounds. Ventral hernia. EXTREMITIES: FROM in all major joints, no edema, no cyanosis or clubbing. NEURO: Alert and oriented x 2, does not know place. No acute neurological deficits. Speech is normal and follows commands. SKIN: Dry and warm Triage Information Reviewed: Yes Vital Signs On Initial Exam: Initial Vitals Temp Pulse Resp BP Pulse Ox 98.2 F 60 18 120/62 100 11/12/18 16:38 11/12/18 16:38 11/12/18 16:38 11/12/18 16:38 11/12/18 16:38 Vital Signs Reviewed: Yes Diagnostics - Vital Signs Vital Signs Temp Pulse Resp BP Pulse Ox 11/12/18 16:38 98.2 F 60 18 120/62 100 - Laboratory Result Diagrams: 11/12/18 17:45 11/12/18 17:45 Lab Statement: Any lab studies that have been ordered have been reviewed, and results considered in the medical decision making process. - Radiology CXR Radiology Interpretation Completed By: Radiologist Summary of Radiographic Findings: NO ACTIVE CARDIOPULMONARY DISEASE IS NOTED. ED physician has reviewed this imaging report. - EKG 17:05 Cardiac Rate: NL - 63 bpm EKG Rhythm: Sinus Rhythm EKG Comparison: No Significant Change Summary of EKG Findings: Normal sinus rhythm at 63bpm without any ST elevation, ST depression v4 and v6, similar to previous EKG done 09/19/18 Altered Mental Statu Course/Dx - Course Assessment/Plan: Blood work at his baseline and shows slight and anemia, glucose 148, lactic acid is 2.3, glucose 148, lactic acid is 2.3, total bili is 3.1, alkaline phosphatase is 142, ammonia level is hemolyze. However earlier ammonia level he was 136 therefore in the ED course the patient was given IV fluids and lactulose. The lactulose and in the ED is 154 which is increased from previous. I discussed my physical exam and findings with Dr. Arellano from the hospital services and she accepted the patient for admission. Dr. Cervantes saw the patient in the ED and says that she wants the patient to be discharged back to the group home. Dr. Cervantes will be discharging the patient. - Diagnoses Differential Diagnosis/HQI/PQRI: Other - hepatic encephalopathy Provider Diagnoses: Hepatic encephalopathy - Provider Notifications Discussed Care Of Patient With: Areli Cervantes Time Discussed With Above Provider: 19:21 Instructed by Provider To: Admit As Inpatient Discharge - Sign-Out/Discharge Documenting (check all that apply): Patient Departure - admit Patient Received Moderate/Deep Sedation with Procedure: No - Discharge Plan Condition: Stable Disposition: ADMITTED TO [facility] Referrals: Rosie Noriega MD [Primary Care Provider] - - Billing Disposition and Condition Condition: STABLE Disposition: Admitted to [facility] - Attestation Statements Document Initiated by Scribe: Yes Documenting Scribe: Peter Estes Provider For Whom Scribe is Documenting (Include Credential): Carlos Wilson MD Scribe Attestation: IPeter, scribed for Carlos Wilson MD on 11/12/18 at 2114. Scribe Documentation Reviewed: Yes Provider Attestation: The documentation as recorded by the scribePeter accurately reflects the service I personally performed and the decisions made by me, Carlos Wilson MD Status of Scribe Document: Viewed
[2018-11-12 18:12] LABS: Albumin 3.4 g/dL (3.2-5.2); Albumin/Globulin Ratio 0.9 (1-3); BUN/Creatinine Ratio 14.5 (8-20); Calcium 9.4 mg/dL (8.6-10.3); EGFR African American 82.3 (>60); EGFR Non-African American 68.1 (>60); Globulin 3.9 g/dL (2-4); Potassium 4.3 mmol/L (3.5-5.0); Total Bilirubin 3.1 mg/dL (0.2-1.0); Total Protein 7.3 g/dL (6.4-8.9)
[2018-11-12 18:13] LABS: Troponin I 0.01 ng/mL (<0.04)
[2018-11-12 18:19] LABS: ABS Basophils 0.1 10^3/ul (0-0.2); ABS Eosinophils 0.2 10^3/ul (0-0.6); ABS Lymphocytes 1.1 10^3/ul (1.0-4.8); ABS Monocytes 0.9 10^3/ul (0-0.8); ABS Neutrophils 2.7 10^3/ul (1.5-7.7); ABS Nucleated RBC 0 10^3/ul; Eosinophil % 4.6 %; Hematocrit 31 % (42-52); Hemoglobin 9.5 g/dl (14.0-18.0); Lymphocyte % 22.4 %; Mean Corpuscular HGB Conc 31 g/dl (31-36); Mean Corpuscular Hemoglobin 27 pg (27-31); Mean Corpuscular Volume 87 fL (80-94); Mean Platelet Volume 7.5 fL (7.4-10.4); Nucleated Red Blood Cells % 0.3; Platelet Count 99 10^3/ul (150-450); Red Blood Count 3.55 10^6/ul (4.00-5.40); Red Cell Distribution Width 23 % (10.5-15)
[2018-11-12] MEDS ORDERED: NS 0.9% 1000 ML** 1,000 ML IV ONE ×2 (18:24→19:27)
[2018-11-12 18:26] LABS: TSH (Thyroid Stimulating Horm) 2.85 mcIU/mL (0.34-5.60)
[2018-11-12] MEDS ORDERED: RiFAXimin* 550 MG TAB PO ONE (20:00)
[2018-11-12 21:54] VITALS: BP 129/69
--- NOTE | 2018-11-12 22:43 | HP ---
CC: [facility] * HISTORY AND PHYSICAL: DATE OF ADMISSION: 11/12/18 - EMERGENCY DEPT TIME OF EVALUATION: 1999 PRIMARY CARE PHYSICIAN: [facility]. CHIEF COMPLAINT: Increasing confusion. 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 The sister, Cassandra who is the healthcare proxy is at the bedside and she says she has noted increase in confusion over the last week. She states he has been taking his lactulose and then having frequent stools, but she has been concerned about his increase in confusion. He has been in [facility] since September 2018 for noncompliance and his encephalopathy. The sister states that he has been very depressed because he is the youngest person there and is having a hard time adjusting to his new living situation. In the emergency room , the patient had labs, imaging and was referred to the hospitalist service for further evaluation. He was given a liter of fluid and 30 mL of lactulose. The patient denies any chest pain or shortness of breath, no abdominal pain. He states that he is just depressed over being at [facility]. He is alert and oriented to self and time. He is having some low back pain. Otherwise, review of systems is negative. PAST MEDICAL HISTORY: 1. Alcoholic liver cirrhosis. 2. History of hepatic encephalopathy. 3. History of subdural hematoma. 3. History of hypertension. 4. Asthma. 5. History of depression. 6. History of seizures. 7. Umbilical hernia. 8. History of stroke. 9. History of conversion disorder. MEDICATIONS: 1. Folic acid 1 mg p.o. daily. 2. Gabapentin 300 mg p.o. at bedtime. 3. Lasix 40 mg daily. 4. Lexapro 10 mg daily. 5. Nasacort 1 puff inhale at bedtime. 6. Prilosec 20 mg daily. 7. Propranolol 10 mg daily. 8. Spironolactone 100 mg by mouth daily. 9. Vitamin B12 500 mcg p.o. daily. 10. Hydroxyzine 25 mg b.i.d. as needed for anxiety. 11. Keppra 500 mg p.o. b.i.d. 12. Magnesium oxide 2 times a day for supplement. 13. Lactulose 30 mg every 8 hours. 14. Albuterol inhaler as needed for shortness of breath. ALLERGIES: BEE, POLLEN, LORAZEPAM and SERTRALINE. FAMILY HISTORY: Mother from a stroke. Father alive at age 91. SOCIAL HISTORY: As mentioned, the patient has been residing at [facility] due to his hepatic encephalopathy since September 2018. His sister, Cassandra is his healthcare proxy. He is a full code. He has a significant history of alcohol abuse although has discontinued since he has been in the detention. No further smoking. REVIEW OF SYSTEMS: A 14-point review of systems mentioned in the HPI, otherwise negative limited to somewhat some of his confusion. PHYSICAL EXAMINATION GENERAL: The patient is sleeping, but awakes to voice. No acute distress. VITAL SIGNS: Temp is 98.2, pulse rate 69, respiratory rate is 13, oxygen saturation is 98% on room air, and blood pressure 104/54. HEENT: Head normocephalic. Pupils are equal and reactive. Anicteric. Oropharynx: Mucous membranes are moist. NECK: Supple. No lymphadenopathy. RESPIRATORY: Diminished breath sounds. No wheezes, rhonchi, or rales. CARDIAC: Regular rate and rhythm. Soft systolic murmur heard throughout. ABDOMEN: Positive bowel sounds, soft, morbidly obese, nontender, nondistended. EXTREMITIES: Trace pretibial edema. NEUROLOGIC: The patient is alert and oriented to self and time. No neurologic deficits. No tremor. DIAGNOSTIC STUDIES/LABORATORY DATA: 5, hemoglobin 9.5, hematocrit 31, platelets 99. Sodium 135, potassium 4.3, chloride 105, bicarb 23, BUN 16, creatinine 1.10, glucose 148, ammonia is 154. Radiographic Data: Chest x-ray. No active cardiopulmonary disease. EKG. Normal sinus rhythm with a QTc of 530. 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 The patient is alert and oriented x2. He is able to talk to me about his depression, how he is younger than everybody in the detention. He is able to carry out a full conversation with his sister and he is able to tolerate n.p.o. The patient was stopped off the rifaximin back in September and has only been on lactulose. I suspect that the patient needs to go back on rifaximin to improve his encephalopathy. I also think the patient needs to be converted over to a different antidepressant. I think maybe there is some depression compounding his mental status and recommending a different antidepressant other than Lexapro as it is excreted through the liver, recommending trialling an alternative agent. The patient got a dose of rifaximin here. I spoke with Dr. Wilson. The patient should go back to [facility] and to continue rifaximin 550 mg p.o. b.i.d. and I will speak with Leslee Gamez who will be at [facility] tomorrow on 11/13/18 to evaluate him tomorrow to make sure his mentation status is still stable and to discuss transitioning him over to a different antidepressant as well. His sister is frustrated and feeling sad for the situation, but hoping that with the rifaximin on board he can become more alert and competent and go from there , which she is agreeable to him going back to [facility] as well as the patient. I spoke with Dr. Wilson regarding my recommendation. TIME SPENT: Greater than 40 minutes spent doing this consultation, more than half the time spent in direct patient contact. [id number]/CPS #: [id number] MTDD
== END 2018-11-12 21:52 | disposition home or self-care (01) ==
LOC: ED 16:31
DX: K72.90 Hepatic failure, unspecified without coma (principal); R41.0 Disorientation, unspecified; E11.9 Type 2 diabetes mellitus without complications; I10 Essential (primary) hypertension; F17.210 Nicotine dependence, cigarettes, uncomplicated; J45.909 Unspecified asthma, uncomplicated
CPT/HCPCS: 36415; 71045; 80053; 82140; 83605; 83735; 84443; 84484; 85025; 93005; 96360; 99283; A9270-GY

== ENCOUNTER 2018-11-30 09:38 | Emergency (ER) | payer BC ==
--- NOTE | 2018-11-30 09:54 | ED ---
Complex/Multi-Sys Presentation - HPI Summary HPI Summary: Pt. is a 63 y.o male who presents to the ER for fluctuating blood pressure. Pt. has a remote hx of alcoholism and is currently at [facility] for rehab after a recent hospitalization. Pt. states that his pressure was high at group home and he was given a bp med. Pt. states since his bp has been low and has been feeling dizzy with standing. He otherwise denies mendenhall, cp, sob, abd. pain, V/D, fever, cough, urinary sxs. Pt. states his sister is a nurse and was concerned about his ammonia levels. Sxs are moderate in severity. No current modifying factors. - History Of Current Complaint Chief Complaint: EDGeneral Time Seen by Provider: 11/30/18 09:44 Hx Obtained From: Patient - Allergies/Home Medications Allergies/Adverse Reactions: Allergies Allergy/AdvReac Type Severity Reaction Status Date / Time bee pollen Allergy Hives Verified 09/15/18 06:12 bee venom protein (honey bee) Allergy Hives Verified 09/15/18 06:12 hydroxyzine [From Atarax] Allergy See Comment Verified 11/30/18 12:20 lorazepam [From Ativan] Allergy See Comment Verified 09/15/18 06:12 sertraline Allergy Rash And Verified 09/15/18 06:12 Itching PMH/Surg Hx/FS Hx/Imm Hx Previously Healthy: Yes Endocrine/Hematology History: Reports: Hx Diabetes - elevated glucose after acute liver failure - diet controlled Denies: Hx Anticoagulant Therapy, Hx Thyroid Disease, Hx Anemia, Hx Unexplained Bleeding Cardiovascular History: Reports: Hx Hypercholesterolemia, Hx Hypertension Denies: Hx Aneurysm, Hx Angina, Hx Angioplasty, Hx Auto Implanted Cardiovert Defib, Hx Cardiac Arrest, Hx Cardiomegaly, Hx Congenital Heart Disease, Hx Congestive Heart Failure, Hx Coronary Artery Disease, Hx Deep Vein Thrombosis, Hx Embolism, Hx Hypotension, Hx Pacemaker/ICD, Hx Peripheral Vascular Disease, Hx Rheumatic Fever, Hx Syncope, Hx Valvular Heart Disease, Other Cardiovascular Problems/Disorders Respiratory History: Reports: Hx Asthma, Hx Chronic Bronchitis, Hx Seasonal Allergies - hay fever Denies: Hx Chronic Obstructive Pulmonary Disease (COPD), Hx Cystic Fibrosis, Hx Lung Cancer, Hx Pleural Effusion, Hx Pneumonia, Hx Pulmonary Edema, Hx Pulmonary Embolism, Hx Sleep Apnea, Other Respiratory Problems/Disorders GI History: Reports: Hx Cirrhosis, Hx Gall Bladder Disease, Hx Hiatal Hernia, Hx Ulcer Denies: Hx Crohn's Disease, Hx Diverticulosis, Hx Gastroesophageal Reflux Disease, Hx Gastrointestinal Bleed, Hx Irritable Bowel, Hx Jaundice, Hx Obstructive Bowel, Hx Ileostomy, Hx Pyloric Stenosis, Other GI Disorders History: Denies: Hx Dialysis, Hx Renal Disease Musculoskeletal History: Reports: Hx Arthritis - both knees, Hx Orthopedic Injury Denies: Hx Back Problems, Hx Bursitis, Hx Congenital Bone Abnormalities, Hx Fibromyalgia, Hx Gout, Hx Osteoporosis, Hx Scoliosis, Hx Tendonitis, Other Musculoskeletal History Sensory History: Reports: Hx Contacts or Glasses Denies: Hx Cataracts, Hx Eye Injury, Hx Eye Prosthesis, Hx Glaucoma, Hx Legally Blind, Hx Macular Degeneration, Hx Vision Problem, Hx Deafness, Hx Hearing Aid, Hx Hearing Problem, Other Sensory Impairments Opthamlomology History: Reports: Hx Contacts or Glasses Denies: Hx Cataracts, Hx Eye Injury, Hx Eye Prosthesis, Hx Glaucoma, Hx Legally Blind, Hx Macular Degeneration, Hx Vision Problem, Other Sensory Impairments Neurological History: Reports: Hx Headaches, Hx Seizures, Other Neuro Impairments/Disorders - Subdural Hematoma Denies: Hx Dementia Psychiatric History: Reports: Hx Depression, Hx Substance Abuse - ETOH Denies: Hx Anxiety, Hx Attention Deficit Hyperactivity Disorder, Hx Eating Disorder, Hx Panic Disorder, Hx Post Traumatic Stress Disorder, Hx Inpatient Treatment, Hx Community Mental Health Tx, Hx Schizophrenia, Hx Bipolar Disorder , Hx Suicide Attempt, Hx of Violent Episodes Against Others, Other Psychiatric Issues/Disorders - Cancer History Cancer Type, Location and Year: None reported - Surgical History Surgery Procedure, Year, and Place: RIGHT ANKLE ORIF. LEFT KNEE TENDON REPAIR. CHOLECYSECTOMY. APPENDECTOMY. TONSILECTOMY Hx Anesthesia Reactions: No Infectious Disease History: No Infectious Disease History: Reports: Hx of Known/Suspected MRSA Denies: Hx Clostridium Difficile, Hx Hepatitis, Hx Human Immunodeficiency Virus (HIV), Hx Shingles, Hx Tuberculosis, History Other Infectious Disease, Traveled Outside the [place] in Last 30 Days - Family History Known Family History: Positive: Non-Contributory Negative: Cardiac Disease, Diabetes - Social History Occupation: Retired Lives: At [facility] Alcohol Use: None Alcohol Amount: 07/30/18 - states no use. Hx Substance Use: Yes Substance Use Type: Reports: None Substance Use Comment - Amount & Last Used: pt states he hasn't had a drink in 2 weeks Hx Tobacco Use: Yes Smoking Status (MU): Light Every Day Tobacco Smoker Type: Cigarettes Length of Time of Smoking/Using Tobacco: 5 years Have You Smoked in the Last Year: No Review of Systems Constitutional: Negative Eyes: Negative ENT: Negative Cardiovascular: Negative Respiratory: Negative Gastrointestinal: Negative Genitourinary: Negative Musculoskeletal: Negative Skin: Negative Neurological: Negative All Other Systems Reviewed And Are Negative: Yes Physical Exam Triage Information Reviewed: Yes Vital Signs On Initial Exam: Initial Vitals Temp Pulse Resp BP Pulse Ox 97.8 F 74 16 95/55 99 11/30/18 09:39 11/30/18 09:39 11/30/18 09:39 11/30/18 09:39 11/30/18 09:39 Vital Signs Reviewed: Yes Appearance: Positive: Well-Appearing - Pt. sitting up in bed in NAD. Appears older than stated age. Answers questions appropriately. Pleasant. Skin: Positive: Warm, Dry Head/Face: Positive: Normal Head/Face Inspection Eyes: Positive: Normal, EOMI Neck: Positive: Supple Respiratory/Lung Sounds: Positive: Clear to Auscultation, Breath Sounds Present Cardiovascular: Positive: Normal, RRR Abdomen Description: Positive: Nontender, Bruit Musculoskeletal: Positive: Normal, Strength/ROM Intact Neurological: Positive: Normal, CN Intact II-III Psychiatric: Positive: Affect/Mood Appropriate - Nayeli Coma Scale Best Eye Response: 4 - Spontaneous Best Motor Response: 6 - Obeys Commands Best Verbal Response: 5 - Oriented Coma Scale Total: 15 Diagnostics - Vital Signs Vital Signs Temp Pulse Resp BP Pulse Ox 11/30/18 09:39 97.8 F 74 16 95/55 99 - Laboratory Result Diagrams: 11/30/18 10:14 11/30/18 10:14 Lab Statement: Any lab studies that have been ordered have been reviewed, and results considered in the medical decision making process. Complex Multi-Symp Course/Dx Course Of Treatment: Pt. presenting c/o low bp. He otherwise has no complaints and is well appearing. ECG nonacute. BP initially 95/55. VS otherwise normal. HR 74. Labs shows chronic anemia, chronic elevation in bilirubin, ammonia 90, sodium a bit low at 130. Orthostatic VS were positive and pt. c.o dizziness. Pt .was given a liter of fluids and felt much better. Pt. ate a turkey sandwhich and has been up ambulating around room and ER. WIll dc back to group home. To see PCP in 1-2 days. To return to ER if sxs change or worsen. - Diagnoses Provider Diagnoses: Dehydration, Hypotension Discharge - Sign-Out/Discharge Documenting (check all that apply): Patient Departure Patient Received Moderate/Deep Sedation with Procedure: No - Discharge Plan Condition: Improved Disposition: HOME Patient Education Materials: Dehydration (ED) Referrals: Rosie Noriega MD [Primary Care Provider] - Additional Instructions: Schedule a follow up appointment with Dr. Noriega on Sunday Increase fluids Return to ER if symptoms change or worsen - Billing Disposition and Condition Condition: IMPROVED Disposition: Home
[2018-11-30 10:28] LABS: ABS Basophils 0 10^3/ul (0-0.2); ABS Eosinophils 0.3 10^3/ul (0-0.6); ABS Monocytes 0.4 10^3/ul (0-0.8); ABS Neutrophils 2.1 10^3/ul (1.5-7.7); ABS Nucleated RBC 0 10^3/ul; Eosinophil % 7.6 %; Hematocrit 25 % (42-52); Hemoglobin 7.9 g/dl (14.0-18.0); Mean Corpuscular HGB Conc 31 g/dl (31-36); Mean Corpuscular Hemoglobin 27 pg (27-31); Mean Corpuscular Volume 87 fL (80-94); Mean Platelet Volume 7.1 fL (7.4-10.4); Nucleated Red Blood Cells % 0.1; Platelet Count 90 10^3/ul (150-450); Red Blood Count 2.91 10^6/ul (4.00-5.40); Red Cell Distribution Width 23 % (10.5-15); White Blood Count 3.8 10^3/ul (3.5-10.8)
[2018-11-30 10:44] LABS: Albumin 2.8 g/dL (3.2-5.2); Albumin/Globulin Ratio 0.8 (1-3); BUN/Creatinine Ratio 12.2 (8-20); Calcium 8.8 mg/dL (8.6-10.3); EGFR African American 103.8 (>60); EGFR Non-African American 85.8 (>60); Globulin 3.7 g/dL (2-4); Potassium 4.6 mmol/L (3.5-5.0); Total Bilirubin 3.1 mg/dL (0.2-1.0); Total Protein 6.5 g/dL (6.4-8.9)
[2018-11-30 10:46] LABS: Troponin I 0.01 ng/mL (<0.04)
[2018-11-30] MEDS ORDERED: NS 0.9% 1000 ML** 1,000 ML IV ONE (11:36)
[2018-11-30 11:45] LABS: Urine Appearance Clear; Urine Bacteria Absent (Absent); Urine Bilirubin Negative (Negative); Urine Blood 1+ (Negative); Urine Color Yellow; Urine Glucose Negative (Negative); Urine Ketones Negative (Negative); Urine Nitrite Negative (Negative); Urine Protein Negative (Negative); Urine Red Blood Cell Trace(0-2/hpf) (Absent); Urine Specific Gravity 1.015 (1.010-1.030); Urine Urobilinogen Negative (Negative); Urine White Blood Cell Absent (Absent)
[2018-11-30 13:25] VITALS: BP 123/90
== END 2018-11-30 13:24 | disposition home or self-care (01) ==
LOC: ED 09:38
DX: E86.0 Dehydration (principal); I95.9 Hypotension, unspecified; Z88.8 Allergy status to other drugs, medicaments and biological substances; Z91.030 Bee allergy status; F17.210 Nicotine dependence, cigarettes, uncomplicated
CPT/HCPCS: 36415; 80053; 81003; 81015; 82140; 84484; 85025; 87641; 93005; 99284

== ENCOUNTER 2019-03-16 22:10 | Emergency (ER) | payer MEDICARE ==
[2019-03-16] MEDS ORDERED: Metoclopramide IV* 5 MG/ML 2 ML VIAL IV ONE (22:36)
[2019-03-16] MEDS ORDERED: NS 0.9% 1000 ML** 1,000 ML IV ONE (22:36)
[2019-03-16] MEDS ORDERED: Famotidine IV* 10 MG/ML 2 ML (20 mg) IV ONE (22:36)
[2019-03-16] MEDS ORDERED: Morphine 4 MG/ML VIAL (1 ml) 4 MG/ML VIAL IV ONE (22:37)
--- NOTE | 2019-03-16 22:40 | ED ---
GI/ HPI - HPI Summary HPI Summary: Patient is a 63 y/o M presenting to ED via EMS with complaints of abdominal pain that onset around 1300 today. Abdominal pain is described as diffuse and burning. N/V/D, WILSON and bilateral foot numbness are endorsed as well. Patient has an irreducible umbilical hernia that has been present for the past 6-8 months. He states that there were plans for him to have hernia reduction surgery , but this did not come to pass as patient had "liver problems". PMHx of cirrhosis, which the patient relates to alcohol abuse. Patient states he has not had any alcohol for the past nine months. PMHx of diabetes, HLD, HTN, asthma , cirrhosis, gall bladder disease, seizures, subdural hematoma, depression. PSHx of cholecystectomy, appendectomy, tonsillectomy. On triage, pain is rated 9 /10, nothing is noted to aggravate/alleviate Sx. Home medications and allergies are reviewed. - History of Current Complaint Chief Complaint: EDAbdPain Time Seen by Provider: 03/16/19 22:30 Stated Complaint: ABD PAIN PER EMS Hx Obtained From: Patient Onset/Duration: Started Hours Ago - Sx onset 1300 today, Still Present Timing: Constant, Lasting Hours - Sx onset 1300 today Severity: Severe Current Severity: Severe Pain Intensity: 9 Location of Pain: Diffuse Pain Characteristics: Burning Associated Signs and Symptoms: Positive: Nausea, Vomiting, Diarrhea, Abdominal Pain, Other: - WILSON, bilateral foot numbness Aggravating Factor(s): Nothing Alleviating Factor(s): Nothing - Additional Pertinent History Primary Care Physician: [id number] - Allergy/Home Medications Allergies/Adverse Reactions: Allergies Allergy/AdvReac Type Severity Reaction Status Date / Time bee pollen Allergy Hives Verified 03/16/19 22:42 bee venom protein (honey bee) Allergy Hives Verified 03/16/19 22:42 hydroxyzine [From Atarax] Allergy See Comment Verified 03/16/19 22:42 lorazepam [From Ativan] Allergy See Comment Verified 03/16/19 22:42 sertraline Allergy Rash And Verified 03/16/19 22:42 Itching Home Medications: Home Medications Folic Acid 1 mg PO DAILY 03/16/19 [History Confirmed 03/16/19] Lactulose [Enulose] 45 ml PO SEE INSTRUCTIONS 03/16/19 [History Confirmed ] raNITIdine HCl [Ranitidine HCl] 300 mg PO QPM 03/16/19 [History Confirmed ] PMH/Surg Hx/FS Hx/Imm Hx Endocrine/Hematology History: Reports: Hx Diabetes - elevated glucose after acute liver failure - diet controlled Denies: Hx Anticoagulant Therapy, Hx Thyroid Disease, Hx Anemia, Hx Unexplained Bleeding Cardiovascular History: Reports: Hx Hypercholesterolemia, Hx Hypertension Denies: Hx Aneurysm, Hx Angina, Hx Angioplasty, Hx Auto Implanted Cardiovert Defib, Hx Cardiac Arrest, Hx Cardiomegaly, Hx Congenital Heart Disease, Hx Congestive Heart Failure, Hx Coronary Artery Disease, Hx Deep Vein Thrombosis, Hx Embolism, Hx Hypotension, Hx Pacemaker/ICD, Hx Peripheral Vascular Disease, Hx Rheumatic Fever, Hx Syncope, Hx Valvular Heart Disease, Other Cardiovascular Problems/Disorders Respiratory History: Reports: Hx Asthma, Hx Chronic Bronchitis, Hx Seasonal Allergies - hay fever Denies: Hx Chronic Obstructive Pulmonary Disease (COPD), Hx Cystic Fibrosis, Hx Lung Cancer, Hx Pleural Effusion, Hx Pneumonia, Hx Pulmonary Edema, Hx Pulmonary Embolism, Hx Sleep Apnea, Other Respiratory Problems/Disorders GI History: Reports: Hx Cirrhosis, Hx Gall Bladder Disease, Hx Hiatal Hernia, Hx Ulcer Denies: Hx Crohn's Disease, Hx Diverticulosis, Hx Gastroesophageal Reflux Disease, Hx Gastrointestinal Bleed, Hx Irritable Bowel, Hx Jaundice, Hx Obstructive Bowel, Hx Ileostomy, Hx Pyloric Stenosis, Other GI Disorders History: Denies: Hx Dialysis, Hx Renal Disease Musculoskeletal History: Reports: Hx Arthritis - both knees, Hx Orthopedic Injury Denies: Hx Back Problems, Hx Bursitis, Hx Congenital Bone Abnormalities, Hx Fibromyalgia, Hx Gout, Hx Osteoporosis, Hx Scoliosis, Hx Tendonitis, Other Musculoskeletal History Sensory History: Reports: Hx Contacts or Glasses Denies: Hx Cataracts, Hx Eye Injury, Hx Eye Prosthesis, Hx Glaucoma, Hx Legally Blind, Hx Macular Degeneration, Hx Vision Problem, Hx Deafness, Hx Hearing Aid, Hx Hearing Problem, Other Sensory Impairments Opthamlomology History: Reports: Hx Contacts or Glasses Denies: Hx Cataracts, Hx Eye Injury, Hx Eye Prosthesis, Hx Glaucoma, Hx Legally Blind, Hx Macular Degeneration, Hx Vision Problem, Other Sensory Impairments Neurological History: Reports: Hx Headaches, Hx Seizures, Other Neuro Impairments/Disorders - Subdural Hematoma Denies: Hx Dementia Psychiatric History: Reports: Hx Depression, Hx Substance Abuse - ETOH Denies: Hx Anxiety, Hx Attention Deficit Hyperactivity Disorder, Hx Eating Disorder, Hx Panic Disorder, Hx Post Traumatic Stress Disorder, Hx Inpatient Treatment, Hx Community Mental Health Tx, Hx Schizophrenia, Hx Bipolar Disorder , Hx Suicide Attempt, Hx of Violent Episodes Against Others, Other Psychiatric Issues/Disorders - Cancer History Cancer Type, Location and Year: None reported - Surgical History Surgery Procedure, Year, and Place: RIGHT ANKLE ORIF. LEFT KNEE TENDON REPAIR. CHOLECYSTECTOMY. APPENDECTOMY. TONSILLECTOMY Hx Anesthesia Reactions: No Infectious Disease History: No Infectious Disease History: Reports: Hx of Known/Suspected MRSA Denies: Hx Clostridium Difficile, Hx Hepatitis, Hx Human Immunodeficiency Virus (HIV), Hx Shingles, Hx Tuberculosis, History Other Infectious Disease, Traveled Outside the [place] in Last 30 Days - Family History Known Family History: Negative: Cardiac Disease, Diabetes - Social History Alcohol Use: None Alcohol Amount: 07/30/18 - states no use. Hx Substance Use: Yes Substance Use Type: Reports: None Substance Use Comment - Amount & Last Used: pt states he hasn't had a drink in 2 weeks Hx Tobacco Use: Yes Smoking Status (MU): Light Every Day Tobacco Smoker Type: Cigarettes Length of Time of Smoking/Using Tobacco: 5 years Have You Smoked in the Last Year: No Review of Systems Positive: Abdominal Pain, Vomiting, Diarrhea, Nausea Positive: Headache, Numbness - bilateral, feet All Other Systems Reviewed And Are Negative: Yes Physical Exam - Summary Physical Exam Summary: VITAL SIGNS: Reviewed. GENERAL: Patient is a well-developed and nourished male who is lying comfortable in the stretcher. Patient is not in any acute respiratory distress. HEAD AND FACE: No signs of trauma. No ecchymosis, hematomas or skull depressions. No sinus tenderness. EYES: PERRLA, EOMI x 2, No nystagmus. Scleral icterus are noted. EARS: Hearing grossly intact. Ear canals and tympanic membranes are within normal limits. MOUTH: Oropharynx within normal limits. NECK: Supple, trachea is midline, no adenopathy, no JVD, no carotid bruit, no c- spine tenderness, neck with full ROM CHEST: Symmetric, no tenderness at palpation LUNGS: Clear to auscultation bilaterally. No wheezing or crackles. CVS: Regular rate and rhythm, S1 and S2 present, no murmurs or gallops appreciated. ABDOMEN: Soft, non-tender. Abdominal distension is noted, patient has an irreducible umbilical hernia and hypoactive bowel sounds. EXTREMITIES: FROM in all major joints, no edema, no cyanosis or clubbing. NEURO: Alert and oriented x 3. No acute neurological deficits. Speech is normal and follows commands. SKIN: Dry and warm Triage Information Reviewed: Yes Vital Signs On Initial Exam: Initial Vitals Temp Pulse Resp BP Pulse Ox 99.0 F 111 24 134/95 100 03/16/19 22:22 03/16/19 22:22 03/16/19 22:22 03/16/19 22:22 03/16/19 22:22 Vital Signs Reviewed: Yes Diagnostics - Vital Signs Vital Signs Temp Pulse Resp BP Pulse Ox 03/16/19 22:22 99.0 F 111 24 134/95 100 - Laboratory Result Diagrams: 03/16/19 22:48 03/16/19 22:48 Lab Statement: Any lab studies that have been ordered have been reviewed, and results considered in the medical decision making process. - CT CT ABD/PEL CT Interpretation Completed By: Radiologist Summary of CT Findings: IMPRESSION: 1. Thickening of the wall of the distal esophagus, which may represent. esophagitis. 2. Nodular contour of the liver, which can be seen with cirrhosis. No liver. lesion identified. 3. Evidence for portal hypertension, with splenomegaly, recanalization of the. umbilical vein, mild esophageal varices, and a small amount of ascites. 4. 6 mm metallic density foreign body in the peritoneal cavity in the right. lower quadrant of the abdomen adjacent to the base of the cecum that is new. compared to the prior CT scan on 07/10/2018. 5. Large fat containing umbilical hernia that is similar in appearance compared. to the prior CT scan on 07/10/2018. 6. Mild chronic anterior wedge compression fracture of T12, which is unchanged. compared to the prior CT scan on 07/10/2018. THIS REPORT WAS REVIEWED BY DR. CALERO. Re-Evaluation - Re-Evaluation First Eval Re-Evaluation Time: 02:31 Comment: Results of labs and imaging were discussed with the patient. He will be discharged to home and follow up with PCP within three days. Strict return precautions were given. Patient is agreeable with this plan. GIGU Course/Dx - Course Course Of Treatment: Patient is a 63 y/o M presenting to ED via EMS with complaints of abdominal pain that onset around 1300 today. Abdominal pain is described as diffuse and burning. N/V/D, WILSON and bilateral foot numbness are endorsed as well. Patient has an irreducible umbilical hernia that has been present for the past 6-8 months. He states that there were plans for him to have hernia reduction surgery, but this did not come to pass as patient had "liver problems". PMHx of cirrhosis, which the patient relates to alcohol abuse. Patient states he has not had any alcohol for the past nine months. PMHx of diabetes, HLD, HTN, asthma, cirrhosis, gall bladder disease, seizures, subdural hematoma, depression. PSHx of cholecystectomy, appendectomy, tonsillectomy. On physical exam, abdominal distension is noted, patient has an irreducible umbilical hernia and hypoactive bowel sounds. Labs showed RBC 3.48 , Hgb 8.9, Hct 28, MCH 26, RDW 20, plt count 114, MPV 7.2, INR 1.86, APTT 39, sodium 131, potassium 3.1, chloride 99, carbon dioxide 21, BUN/creatinine ratio 6.1, glucose 138, magnesium 1.8, total bilirubin 3.2, alk phos 168, CRP 10.06, total protein 6.1, albumin 2.7, albumin/globulin ratio 0.8, amylase 24, lipase 50. During ED course, patient received fluids, Klor Con Er Tab 40 meq PO, oxycodone 5 mg PO, morphine 4 mg IV, reglan 10 mg IV, and Pepcid [address] ABD/PEL IMPRESSION: 1. Thickening of the wall of the distal esophagus, which may represent. esophagitis. 2. Nodular contour of the liver, which can be seen with cirrhosis. No liver. lesion identified. 3. Evidence for portal hypertension, with splenomegaly, recanalization of the. umbilical vein, mild esophageal varices, and a small amount of ascites. 4. 6 mm metallic density foreign body in the peritoneal cavity in the right. lower quadrant of the abdomen adjacent to the base of the cecum that is new. compared to the prior CT scan on 07/10/2018. 5. Large fat containing umbilical hernia that is similar in appearance compared. to the prior CT scan on 07/10/2018. 6. Mild chronic anterior wedge compression fracture of T12, which is unchanged. compared to the prior CT scan on 07/10/2018. Results of labs and imaging were discussed with the patient. He will be discharged to home and follow up with PCP within three days. Strict return precautions were given. Patient is agreeable with this plan. - Diagnoses Provider Diagnoses: Gastroenteritis, Headache Discharge - Sign-Out/Discharge Documenting (check all that apply): Patient Departure - discharge Patient Received Moderate/Deep Sedation with Procedure: No - Discharge Plan Condition: Stable Disposition: HOME Patient Education Materials: Gastroenteritis (ED), Acute Headache (ED) Referrals: Rosie Noriega MD [Primary Care Provider] - 3 Days Additional Instructions: PLEASE RETURN TO THE ED IMMEDIATELY FOR WORSENING OR CONCERNING SYMPTOMS. FOLLOW UP WITH YOUR PRIMARY CARE PHYSICIAN WITHIN THREE DAYS. - Attestation Statements Document Initiated by Scribe: Yes Documenting Scribe: MICHAEL MASCORRO Provider For Whom Yonie is Documenting (Include Credential): BEATRIZ CALERO MD Scribe Attestation: IMICHAEL, scribed for BEATRIZ CALERO MD on 03/17/19 at 0342. Status of Scribe Document: Ready
[2019-03-16 23:02] LABS: INR 1.86 (0.82-1.09)
[2019-03-16 23:11] LABS: Albumin 2.7 g/dL (3.2-5.2); Albumin/Globulin Ratio 0.8 (1-3); BUN/Creatinine Ratio 6.1 (8-20); C Reactive Protein 10.06 mg/L (<8.01); Calcium 8.8 mg/dL (8.6-10.3); EGFR African American 94.1 (>60); EGFR Non-African American 77.8 (>60); Globulin 3.4 g/dL (2-4); Magnesium 1.8 mg/dL (1.9-2.7); Potassium 3.1 mmol/L (3.5-5.0); Total Bilirubin 3.2 mg/dL (0.2-1.0); Total Protein 6.1 g/dL (6.4-8.9)
[2019-03-16 23:19] LABS: ABS Eosinophils 0.2 10^3/ul (0-0.6); ABS Lymphocytes 1.1 10^3/ul (1.0-4.8); ABS Monocytes 0.6 10^3/ul (0-0.8); ABS Neutrophils 3.2 10^3/ul (1.5-7.7); Eosinophil % 3.3 %; Hematocrit 28 % (42-52); Hemoglobin 8.9 g/dL (14.0-18.0); Lymphocyte % 21.8 %; Mean Corpuscular HGB Conc 31 g/dL (31-36); Mean Corpuscular Hemoglobin 26 pg (27-31); Mean Corpuscular Volume 81 fL (80-94); Mean Platelet Volume 7.2 fL (7.4-10.4); Nucleated Red Blood Cells % 0.1; Platelet Count 114 10^3/uL (150-450); Red Blood Count 3.48 10^6 /uL (4.18-5.48); Red Cell Distribution Width 20 % (10-15); White Blood Count 5.1 10^3/uL (3.5-10.8)
[2019-03-16] MEDS ORDERED: Potassium Chlor TAB* 20 MEQ TAB.ER PO ONE (23:27)
[2019-03-16] MEDS ORDERED: Iodixanol* (CONTRAST) 320 MG/ML 100 ML SDV IV ONE (23:37)
[2019-03-17] MEDS ORDERED: oxyCODONE TAB* 5 MG TAB PO ONE (02:36)
[2019-03-17 03:04] VITALS: BP 166/84
== END 2019-03-17 03:06 | disposition home or self-care (01) ==
LOC: ED 22:10
DX: K52.9 Noninfective gastroenteritis and colitis, unspecified (principal); R51 Headache; M48.54XD Collapsed vertebra, not elsewhere classified, thoracic region, subsequent encounter for fracture with routine healing; R20.0 Anesthesia of skin; K42.9 Umbilical hernia without obstruction or gangrene; E11.9 Type 2 diabetes mellitus without complications; K74.60 Unspecified cirrhosis of liver; K72.90 Hepatic failure, unspecified without coma; Z90.49 Acquired absence of other specified parts of digestive tract; Z90.89 Acquired absence of other organs; Z88.8 Allergy status to other drugs, medicaments and biological substances; Z91.030 Bee allergy status; F17.210 Nicotine dependence, cigarettes, uncomplicated
CPT/HCPCS: 36415; 74177; 80053; 82150; 83690; 83735; 85025; 85610; 85730; 86140; 96361; 96374; 96375; 99284; A9270-GY; J2270; J2765; Q9967

== ENCOUNTER 2019-03-23 20:56 | Inpatient (IN) | payer MEDICARE ==
--- NOTE | 2019-03-23 22:40 | ED ---
Psychiatric Complaint - HPI Summary HPI Summary: Patient is a 63 y/o M presenting to ED for MHE. He reports that he has been living at [facility] post CVA. CVA occurred a year ago, patient is at [facility] for physical rehab, noting that he has residual weakness from the stroke. Patient states that he feels that he does not belong at [facility]. He additionally notes that he has gone through a "nasty" divorce ten days ago and states he lost a lot of money. Patient states that his had not paid various bills and that he is receiving frequent calls from collection agencies as well. He reports that he left the facility today to visit his sister, but did not notify anyone about this. Police were called to search for patient. When patient returned, he requested to talk to a social work or mental health worker. These services were not available and he was sent to ED as a result. SI/ HI denied at this time, he states that he just does not want to live at [facility]. On triage, pain is denied. Home medications and allergies are reviewed. - History Of Current Complaint Chief Complaint: EDPsychosocial Time Seen by Provider: 03/23/19 21:17 Hx Obtained From: Patient Onset/Duration: Still Present Timing: Constant Severity Currently: None Aggravating Factor(s): Recent Stress Alleviating Factor(s): Nothing Associated Signs And Symptoms: Positive: Negative Has Suicidal: Denies: Thoughts - denies Has Homicidal: Denies: Thoughts - denies - Allergies/Home Medications Allergies/Adverse Reactions: Allergies Allergy/AdvReac Type Severity Reaction Status Date / Time bee pollen Allergy Hives Verified 03/16/19 22:42 bee venom protein (honey bee) Allergy Hives Verified 03/16/19 22:42 hydroxyzine [From Atarax] Allergy See Comment Verified 03/16/19 22:42 lorazepam [From Ativan] Allergy See Comment Verified 03/16/19 22:42 sertraline Allergy Rash And Verified 03/16/19 22:42 Itching Home Medications: Home Medications Lactulose 480 ML BTL*STOCK USE 45 liq PO QID 03/23/19 [History Confirmed ] PMH/Surg Hx/FS Hx/Imm Hx Endocrine/Hematology History: Reports: Hx Diabetes - elevated glucose after acute liver failure - diet controlled Denies: Hx Anticoagulant Therapy, Hx Thyroid Disease, Hx Anemia, Hx Unexplained Bleeding Cardiovascular History: Reports: Hx Hypercholesterolemia, Hx Hypertension Denies: Hx Aneurysm, Hx Angina, Hx Angioplasty, Hx Auto Implanted Cardiovert Defib, Hx Cardiac Arrest, Hx Cardiomegaly, Hx Congenital Heart Disease, Hx Congestive Heart Failure, Hx Coronary Artery Disease, Hx Deep Vein Thrombosis, Hx Embolism, Hx Hypotension, Hx Pacemaker/ICD, Hx Peripheral Vascular Disease, Hx Rheumatic Fever, Hx Syncope, Hx Valvular Heart Disease, Other Cardiovascular Problems/Disorders Respiratory History: Reports: Hx Asthma, Hx Chronic Bronchitis, Hx Seasonal Allergies - hay fever Denies: Hx Chronic Obstructive Pulmonary Disease (COPD), Hx Cystic Fibrosis, Hx Lung Cancer, Hx Pleural Effusion, Hx Pneumonia, Hx Pulmonary Edema, Hx Pulmonary Embolism, Hx Sleep Apnea, Other Respiratory Problems/Disorders GI History: Reports: Hx Cirrhosis, Hx Gall Bladder Disease, Hx Hiatal Hernia, Hx Ulcer Denies: Hx Crohn's Disease, Hx Diverticulosis, Hx Gastroesophageal Reflux Disease, Hx Gastrointestinal Bleed, Hx Irritable Bowel, Hx Jaundice, Hx Obstructive Bowel, Hx Ileostomy, Hx Pyloric Stenosis, Other GI Disorders History: Denies: Hx Dialysis, Hx Renal Disease Musculoskeletal History: Reports: Hx Arthritis - both knees, Hx Orthopedic Injury Denies: Hx Back Problems, Hx Bursitis, Hx Congenital Bone Abnormalities, Hx Fibromyalgia, Hx Gout, Hx Osteoporosis, Hx Scoliosis, Hx Tendonitis, Other Musculoskeletal History Sensory History: Reports: Hx Contacts or Glasses Denies: Hx Cataracts, Hx Eye Injury, Hx Eye Prosthesis, Hx Glaucoma, Hx Legally Blind, Hx Macular Degeneration, Hx Vision Problem, Hx Deafness, Hx Hearing Aid, Hx Hearing Problem, Other Sensory Impairments Opthamlomology History: Reports: Hx Contacts or Glasses Denies: Hx Cataracts, Hx Eye Injury, Hx Eye Prosthesis, Hx Glaucoma, Hx Legally Blind, Hx Macular Degeneration, Hx Vision Problem, Other Sensory Impairments Neurological History: Reports: Hx Headaches, Hx Seizures, Other Neuro Impairments/Disorders - Subdural Hematoma Denies: Hx Dementia Psychiatric History: Reports: Hx Depression, Hx Substance Abuse - ETOH Denies: Hx Anxiety, Hx Attention Deficit Hyperactivity Disorder, Hx Eating Disorder, Hx Panic Disorder, Hx Post Traumatic Stress Disorder, Hx Inpatient Treatment, Hx Community Mental Health Tx, Hx Schizophrenia, Hx Bipolar Disorder , Hx Suicide Attempt, Hx of Violent Episodes Against Others, Other Psychiatric Issues/Disorders - Cancer History Cancer Type, Location and Year: None reported - Surgical History Surgery Procedure, Year, and Place: RIGHT ANKLE ORIF. LEFT KNEE TENDON REPAIR. CHOLECYSTECTOMY. APPENDECTOMY. TONSILLECTOMY Hx Anesthesia Reactions: No Infectious Disease History: No Infectious Disease History: Reports: Hx of Known/Suspected MRSA Denies: Hx Clostridium Difficile, Hx Hepatitis, Hx Human Immunodeficiency Virus (HIV), Hx Shingles, Hx Tuberculosis, History Other Infectious Disease, Traveled Outside the [place] in Last 30 Days - Family History Known Family History: Negative: Cardiac Disease, Diabetes - Social History Alcohol Use: None Alcohol Amount: 07/30/18 - states no use. Hx Substance Use: Yes Substance Use Type: Reports: None Substance Use Comment - Amount & Last Used: pt states he hasn't had a drink in 2 weeks Hx Tobacco Use: Yes Smoking Status (MU): Light Every Day Tobacco Smoker Type: Cigarettes Length of Time of Smoking/Using Tobacco: 5 years Have You Smoked in the Last Year: No Review of Systems Negative: Fever - on vitals, temp is 98.2 F Psychological: Other - patient denies HI/SI All Other Systems Reviewed And Are Negative: Yes Physical Exam - Summary Physical Exam Summary: VITAL SIGNS: Reviewed. GENERAL: Patient is a well-developed and nourished male who is lying comfortable in the stretcher. Patient is not in any acute respiratory distress. HEAD AND FACE: No signs of trauma. No ecchymosis, hematomas or skull depressions. No sinus tenderness. EYES: PERRLA, EOMI x 2, No injected conjunctiva, no nystagmus. EARS: Hearing grossly intact. Ear canals and tympanic membranes are within normal limits. MOUTH: Oropharynx within normal limits. NECK: Supple, trachea is midline, no adenopathy, no JVD, no carotid bruit, no c- spine tenderness, neck with full ROM CHEST: Symmetric, no tenderness at palpation LUNGS: Clear to auscultation bilaterally. No wheezing or crackles. CVS: Regular rate and rhythm, S1 and S2 present, no murmurs or gallops appreciated. ABDOMEN: Soft, non-tender. No signs of distention. No rebound no guarding, and no masses palpated. Bowel sounds are normal. EXTREMITIES: FROM in all major joints, no edema, no cyanosis or clubbing. NEURO: Alert and oriented x 3. No acute neurological deficits. Speech is normal and follows commands. SKIN: Dry and warm PSYCH: Denies HI/SI Triage Information Reviewed: Yes Vital Signs On Initial Exam: Initial Vitals Temp Pulse Resp BP Pulse Ox 98.2 F 112 18 140/78 97 03/23/19 21:07 03/23/19 21:07 03/23/19 21:07 03/23/19 21:07 03/23/19 21:07 Vital Signs Reviewed: Yes Diagnostics - Vital Signs Vital Signs Temp Pulse Resp BP Pulse Ox 03/23/19 21:07 98.2 F 112 18 140/78 97 - Laboratory Result Diagrams: 03/23/19 23:01 03/23/19 23:01 Lab Statement: Any lab studies that have been ordered have been reviewed, and results considered in the medical decision making process. Re-Evaluation - Re-Evaluation First Eval Re-Evaluation Time: 21:25 Comment: Patient medically cleared for MHE. Second Eval Re-Evaluation Time: 22:25 Change: Unchanged Comment: MH worker reports that the patient had stated that he developed thoughts of suicide last night and had plans to by suicide via gun today. Course/Dx - Course Course Of Treatment: Patient is a 63 y/o M presenting to ED for MHE. He reports that he has been living at [facility] post CVA. CVA occurred a year ago, patient is at [facility] for physical rehab, noting that he has residual weakness from the stroke. Patient states that he feels that he does not belong at [facility]. He additionally notes that he has gone through a "nasty" divorce ten days ago and states he lost a lot of money. Patient states that his had not paid various bills and that he is receiving frequent calls from collection agencies as well. He reports that he left the facility today to visit his sister, but did not notify anyone about this. Police were called to search for patient. When patient returned, he requested to talk to a social work or mental health worker. These services were not available and he was sent to ED as a result. SI/HI denied at this time, he states that he just does not want to live at [facility]. Physical exam is unremarkable. Labs showed RBC 3.63, Hgb 9.2, Hct 29, MCH 25, RDW 20, Plt count 117, MPV 7, sodium 132, chloride 100, glucose 141, total bilirubin 3.7, alk phos 172, total protein 6.2 , albumin 2.7, TSH 2.74. Tox screen negative. Patient was medically cleared for MHE. 2224 - worker reports that the patient had stated that he developed thoughts of suicide last night and had plans to by suicide via gun today. Patient received Tylenol 650 mg PO. [address] Olivares has reviewed the patient's case, he will be admitted to [facility]. Dr. Greene is agreeable with this. - Differential Dx/Clinical Impression Provider Diagnosis: Depressive disorder - Physician Notifications Discussed Care Of Patient With: Anjelica Olivares Time Discussed With Above Provider: 22:50 Instructed by Provider To: Other - 2249 - worker reports that Dr. Olivares has reviewed the patient's case, he will be admitted to [facility]. Dr. Greene is agreeable with this. Discharge - Sign-Out/Discharge Documenting (check all that apply): Patient Departure - admit Patient Received Moderate/Deep Sedation with Procedure: No - Discharge Plan Condition: Stable Disposition: PSYCHIATRIC FACILITY-[facility] - Billing Disposition and Condition Condition: STABLE Disposition: Psychiatric Facility [facility] - Attestation Statements Document Initiated by Scribe: Yes Documenting Scribe: MICHAEL MASCORRO Provider For Whom Corey is Documenting (Include Credential): BEATRIZ GREENE MD Scribe Attestation: MICHAEL Garay, scribed for BEATRIZ GREENE MD on 03/24/19 at 0619. Scribe Documentation Reviewed: Yes Provider Attestation: The documentation as recorded by the MICHAEL segundo accurately reflects the service I personally performed and the decisions made by JANI leigh MD Status of Scribe Document: Viewed
[2019-03-23 23:17] LABS: ABS Basophils 0.1 10^3/ul (0-0.2); ABS Eosinophils 0.1 10^3/ul (0-0.6); ABS Monocytes 0.7 10^3/ul (0-0.8); ABS Neutrophils 3.2 10^3/ul (1.5-7.7); Eosinophil % 2.5 %; Hematocrit 29 % (42-52); Hemoglobin 9.2 g/dL (14.0-18.0); Lymphocyte % 20.2 %; Mean Corpuscular HGB Conc 32 g/dL (31-36); Mean Corpuscular Hemoglobin 25 pg (27-31); Mean Corpuscular Volume 81 fL (80-94); Platelet Count 117 10^3/uL (150-450); Red Blood Count 3.63 10^6 /uL (4.18-5.48); Red Cell Distribution Width 20 % (10-15)
[2019-03-23] MEDS ORDERED: Acetaminophen TAB* 325 MG PO ONE (23:20)
[2019-03-23 23:23] LABS: ALT 17 U/L (7-52); AST 24 U/L (13-39); Albumin 2.7 g/dL (3.2-5.2); Albumin/Globulin Ratio 0.8 (1-3); Alkaline Phosphatase 172 U/L (34-104); Anion Gap 8 mmol/L (2-11); BUN/Creatinine Ratio 8.8 (8-20); Blood Urea Nitrogen 8 mg/dL (6-24); CO2 Carbon Dioxide 24 mmol/L (22-32); Calcium 8.7 mg/dL (8.6-10.3); Chloride 100 mmol/L (101-111); EGFR African American 102.5 (>60); EGFR Non-African American 84.7 (>60); Globulin 3.5 g/dL (2-4); Glucose 141 mg/dL (70-100); Potassium 4.1 mmol/L (3.5-5.0); Sodium 132 mmol/L (135-145); Total Protein 6.2 g/dL (6.4-8.9)
[2019-03-23 23:30] LABS: Acetaminophen < 15 mcg/mL; Alcohol < 10 mg/dL (<10); Salicylate < 2.50 mg/dL (<30)
[2019-03-23 23:45] LABS: TSH (Thyroid Stimulating Horm) 2.74 mcIU/mL (0.34-5.60)
[2019-03-24] MEDS ORDERED: Albuterol HFA INHALER* 8 gm MDI INH PRN (01:15)
[2019-03-24] MEDS ORDERED: busPIRone TAB* 5 MG PO PRN (01:17)
[2019-03-24] MEDS ORDERED: EPINEPHRINE 1 MG/ML 1 ML VIAL IM PRN (01:24)
[2019-03-24] MEDS: Acetaminophen TAB* 325 MG PO PRN (04:08)
[2019-03-24 06:57] LABS: HDL Cholesterol 27.4 mg/dL
[2019-03-24] MEDS ORDERED: DULoxetine DR CAP* 20 MG CAP.DR PO SCH (09:00)
[2019-03-24] MEDS: Al Hydrox/Mg Hydrox/Simet LIQ* 30 ML UDC PO PRN ×2 (09:12→19:06)
[2019-03-24] MEDS: Spironolactone TAB* 25 MG PO SCH (09:57)
[2019-03-24] MEDS: Cyanocobalamin TAB* 500 MCG PO SCH (09:58)
[2019-03-24] MEDS: Folic Acid TAB* 1 MG PO SCH (09:58)
[2019-03-24] MEDS: Magnesium Oxide TAB* 400 MG PO SCH ×2 (09:58→20:20)
[2019-03-24] MEDS: levETIRAcetam TAB* 500 MG PO SCH ×2 (09:59→20:19)
[2019-03-24] MEDS: Vitamin THERAPEUTIC TAB PO SCH (09:59)
[2019-03-24] MEDS: CMCS: Midodrine 5 MG TAB PO SCH ×2 (10:00→20:18)
[2019-03-24] MEDS: Furosemide TAB* 20 MG PO SCH (10:02)
[2019-03-24] MEDS: RiFAXimin* 550 MG TAB PO SCH ×2 (10:02→20:21)
[2019-03-24] MEDS: Lactulose* 15 ML UDC PO SCH ×5 (10:03→20:18)
[2019-03-24] MEDS: Fluticasone NASAL SPRAY 50MCG* 16 gm SPRAY BTL BOTH NARES SCH (10:03)
[2019-03-24] MEDS ORDERED: Gabapentin CAP(*) 300 MG PO ONE ×2 (12:00→14:01)
[2019-03-24] MEDS: Gabapentin CAP(*) 300 MG PO SCH ×2 (13:37→20:18)
[2019-03-24] MEDS: Lidocaine PATCH 5%* 1 PATCH TRANSDERM SCH (13:37)
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
[2019-03-24 18:14] LABS: Urine Appearance Clear; Urine Bilirubin Negative (Negative); Urine Blood Negative (Negative); Urine Color Yellow; Urine Glucose Negative (Negative); Urine Ketones Negative (Negative); Urine Nitrite Negative (Negative); Urine Protein Negative (Negative); Urine Urobilinogen Negative (Negative)
[2019-03-24 18:34] LABS: Urine Benzodiazepine Screen None Detected (None Detect); Urine Opiates Screen None Detected (None Detect)
[2019-03-24] MEDS: Famotidine TAB* 20 MG PO SCH (20:15)
[2019-03-24] MEDS: traZODone TAB* 50 MG TAB PO SCH (20:19)
[2019-03-24] MEDS: Lidocaine Patch REMOVE* 1 NOTE MISC PATCH OFF SCH (22:54)
[2019-03-25] MEDS: Spironolactone TAB* 25 MG PO SCH (08:19)
[2019-03-25] MEDS: Vitamin THERAPEUTIC TAB PO SCH (08:19)
[2019-03-25] MEDS: DULoxetine DR CAP* 60 MG CAP.DR PO SCH (08:19)
[2019-03-25] MEDS: Folic Acid TAB* 1 MG PO SCH (08:20)
[2019-03-25] MEDS: Fluticasone NASAL SPRAY 50MCG* 16 gm SPRAY BTL BOTH NARES SCH (08:20)
[2019-03-25] MEDS: levETIRAcetam TAB* 500 MG PO SCH ×2 (08:20→22:17)
[2019-03-25] MEDS: Cyanocobalamin TAB* 500 MCG PO SCH (08:20)
[2019-03-25] MEDS: Magnesium Oxide TAB* 400 MG PO SCH ×2 (08:20→22:17)
[2019-03-25] MEDS: CMCS: Midodrine 5 MG TAB PO SCH ×2 (08:21→22:13)
[2019-03-25] MEDS: Furosemide TAB* 20 MG PO SCH (08:21)
[2019-03-25] MEDS: Lactulose* 15 ML UDC PO SCH ×4 (08:22→22:17)
[2019-03-25] MEDS: RiFAXimin* 550 MG TAB PO SCH ×2 (08:22→22:12)
[2019-03-25] MEDS: Lidocaine PATCH 5%* 1 PATCH TRANSDERM SCH (08:27)
[2019-03-25] MEDS: Acetaminophen TAB* 325 MG PO PRN ×2 (09:23→19:37)
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
[2019-03-25] MEDS: Al Hydrox/Mg Hydrox/Simet LIQ* 30 ML UDC PO PRN (17:04)
[2019-03-25] MEDS ORDERED: Ondansetron TAB* 4 MG PO ONE (18:57)
[2019-03-25] MEDS: Famotidine TAB* 20 MG PO SCH (19:37)
[2019-03-25] MEDS ORDERED: Ondansetron ODT TAB* 4 MG PO PRN (20:10)
[2019-03-25] MEDS: traZODone TAB* 50 MG TAB PO SCH (22:15)
[2019-03-25] MEDS: Gabapentin CAP(*) 300 MG PO SCH (22:16)
[2019-03-25] MEDS: Lidocaine Patch REMOVE* 1 NOTE MISC PATCH OFF SCH (23:41)
--- NOTE | 2019-03-26 02:49 | CONS ---
[facility] MEDICINE CONSULTATION REPORT: DATE OF CONSULT: 03/25/19 PROVIDER: Siobhan Haynes NP ATTENDING PHYSICIAN: Dr. Carranza. CONSULTING PHYSICIAN: Dr. Meli Narvaez (dictated by Siobhan Haynes NP). REASON FOR CONSULT: Nausea and vomiting. HISTORY OF PRESENT ILLNESS: Mr. Mata is a 63-year-old male with past medical history significant for alcohol-induced cirrhosis of the liver, history of CVA, seizures, hypertension, asthma, who presented to [facility] on 03/23/19, who left in a taxi from [facility], eloped from [facility] via taxi to his sister's house and then discovering that he was being followed by the police, who then returned to [facility] and threatened suicide. So, he was admitted to the mental health unit for further evaluation. This evening, we were contacted by Mental Health as the patient had increased pain and nausea and vomiting and was moaning loudly in his room. Nursing staff reports that after the patient received his evening meds including gabapentin, his symptoms improved. He also received a dose of ODT and Zofran, which resolved his nausea and vomiting. He stopped moaning and his symptoms did improve. At the time of evaluation, the patient reports that his nausea and vomiting have resolved. He denies any back pain and chest pain. He denies any shortness of breath. Denies any fever or chills. At this time, he denies any further nausea or vomiting. He denies any gross hematuria, dysuria, focal weakness, or sensory loss. Denies any visual complaints, difficulty swallowing. He does complain of numbness in his feet that has since improved. He does report that he had numbness from his knees down bilaterally that is improved since receiving gabapentin. He also complains of headache. Due to his nausea and vomiting, we were asked to see the patient in consultation. PAST MEDICAL HISTORY: Significant for: 1. Alcohol cirrhosis of the liver. 2. History of hepatic encephalopathy. 3. History of subdural hematoma. 4. Hypertension. 5. Asthma. 6. Depression. 7. Seizures. 8. Hernia. 9. History of stroke. 10. History of conversion disorder. PAST SURGICAL HISTORY: 1. Bilateral knee surgery. 2. Right ankle surgery. 3. Appendectomy. 4. Cholecystectomy. 5. Tonsillectomy. HOME MEDICATIONS: 1. Keppra 500 mg p.o. b.i.d. 2. Nasacort 1 spray both nares daily. 3. Lactulose 45 mg 4 times daily. 4. Gabapentin 300 mg p.o. at bedtime. 5. Folic acid 1 mg p.o. daily. 6. EpiPen as needed. 7. Albuterol inhaler 2 puffs q.4 hours as needed. 8. Spironolactone 100 mg p.o. daily. 9. Rifaximin 550 mg p.o. b.i.d. 10. Midodrine 2.5 mg p.o. daily. 11. Duloxetine 20 mg p.o. b.i.d. 12. Vitamin B12 500 mcg p.o. daily. 13. Tylenol 650 mg p.o. q.6 hours p.r.n. 14. BuSpar 5 mg p.o. b.i.d. 15. Lasix 20 mg p.o. daily. 16. 300 mg p.o. q.p.m. 17. Magnesium oxide 400 mg p.o. b.i.d. ALLERGIES: BEE POLLEN, HONEYBEES, ATARAX, ATIVAN, and SERTRALINE. FAMILY HISTORY: Mother from stroke. Father is alive at the age of 91. No reported history of diabetes or cancer within the family. SOCIAL HISTORY: The patient is current resident at [facility] since September of 2018. He denies any alcohol or illicit drug use. He does report that he smokes approximately 2 cigarettes a day. Surrogate decision maker in the event he is unable to make his own decision is his sister, Cassandra. He is a full code. REVIEW OF SYSTEMS: An 11-point review of systems was completed. All pertinent positives are as mentioned in the HPI, otherwise were negative. PHYSICAL EXAM: General: At this time, the patient is alert, resting in bed, on the mental health unit. He is calm. He is well nourished, well developed. Vital Signs: Blood pressure 148/66, temperature is 99.3, heart rate 95, respirations 16, O2 saturation 100%. HEENT: Head is atraumatic and normocephalic. Eyes: EOMs are intact. Sclerae anicteric and not pale. Oral mucosa appeared to be moist. Neck is supple. Lungs are clear to auscultation bilaterally. No wheezes, rales, or rhonchi. Cardiac: S1 and S2. Regular rate and rhythm. No murmurs, rubs, or gallops. Abdomen is soft and nontender. Bowel sounds are present x4. Extremities: He can move all 4 extremities. Pedal pulses are +2 bilaterally. There is no clubbing or cyanosis. Sensation is intact to bilateral feet. Skin is intact. Neurologic: He is awake, alert, and oriented x3. Speech is clear. Thought process is intact. There are no gross focal deficits. DIAGNOSTIC STUDIES/LAB DATA: WBCs are 5.0, RBC 3.63, hemoglobin 9.2, hematocrit was 29, platelet count was 117, which is at the patient's baseline. Sodium 132, potassium 4.1, chloride of 100, carbon dioxide was 24, anion gap was 8, BUN was 8, creatinine 0.91, glucose was 141, A1c was 5.3. Total bili was 3.70, which is at the patient's baseline; alkaline phosphatase was 172; ASTs were 24; ALTs were 17. Ammonia level was 66. TSH was 2.74. Urine was within normal limits. Urine tox was within normal limits. Salicylates, acetaminophen, and serum alcohol were all within normal limits. IMPRESSION AND PLAN: Mr. Mata is a 63-year-old male with past medical history significant for alcoholic cirrhosis of the liver, history of cerebrovascular accident, hypertension, asthma, who was admitted to behavioral health unit due to suicidal ideation. We were asked to consult due to his nausea and vomiting. Our recommendations are as follows: 1. Suicidal ideation management per Psychiatry. 2. Nausea and vomiting. The patient did have episode of nausea and vomiting. He was given Zofran ODT, which resolved his symptoms. I recommend continue Zofran ODT q.8 hours as needed for nausea or vomiting. 3. Knee pain and lower extremity pain. The patient does report that he has chronic knee pain and the patient reports that he had numbness to his lower extremities though sensation is intact when physically assessed. Pedal pulses are +2 bilaterally. The patient does report improvement of sensation after gabapentin. I will continue his gabapentin. I would move his gabapentin dosing up to 2000 to facilitate better control of symptoms in the evening. CHRONIC MEDICAL PROBLEMS: Alcoholic cirrhosis of the liver. I will continue his lactulose as prescribed. DVT prophylaxis: As per mental health unit. Code status: He is a full code. Diet: He can have a regular diet. TIME SPENT: Time spent was approximately 45 minutes on this consultation, more than half that time was spent at the bedside reviewing the events leading thus far to his hospitalization, performing physical exam, and reviewing my plan of care. I have discussed this with attending, Dr. Meli Narvaez; she is in agreement with my plan. The patient's symptomatology that we were initially called for has improved since giving him Zofran and his gabapentin. I would recommend continuing these medications. SIOBHAN HAYNES, DARCI [id number]/CPS #: [id number] MARILUZ
[2019-03-26] MEDS: Lactulose* 15 ML UDC PO SCH ×4 (08:36→20:44)
[2019-03-26] MEDS: Fluticasone NASAL SPRAY 50MCG* 16 gm SPRAY BTL BOTH NARES SCH (08:36)
[2019-03-26] MEDS: RiFAXimin* 550 MG TAB PO SCH ×2 (08:38→20:43)
[2019-03-26] MEDS: Spironolactone TAB* 25 MG PO SCH (08:38)
[2019-03-26] MEDS: Magnesium Oxide TAB* 400 MG PO SCH ×2 (08:39→20:42)
[2019-03-26] MEDS: CMCS: Midodrine 5 MG TAB PO SCH ×2 (08:39→20:42)
[2019-03-26] MEDS: Vitamin THERAPEUTIC TAB PO SCH (08:39)
[2019-03-26] MEDS: Folic Acid TAB* 1 MG PO SCH (08:39)
[2019-03-26] MEDS: Cyanocobalamin TAB* 500 MCG PO SCH (08:39)
[2019-03-26] MEDS: levETIRAcetam TAB* 500 MG PO SCH ×2 (08:39→20:40)
[2019-03-26] MEDS: DULoxetine DR CAP* 60 MG CAP.DR PO SCH (08:39)
[2019-03-26] MEDS: Furosemide TAB* 20 MG PO SCH (08:39)
[2019-03-26] MEDS: Lidocaine PATCH 5%* 1 PATCH TRANSDERM SCH (08:42)
[2019-03-26] MEDS: Al Hydrox/Mg Hydrox/Simet LIQ* 30 ML UDC PO PRN ×2 (14:43→20:47)
--- NOTE | 2019-03-26 14:49 | PN ---
Subjective - Subjective Date of Service: 03/26/19 Service Type: [id number] Hosp care 25 min moderate complexity Subjective: Efren is found lying in bed after participating in groups much of the day. He is pleasant and clear. He makes sense and reflects on the way human beings treat one another. He shows no symptoms of depression or anxiety and in fact seems happy to be here. He does indicate that he is less than happy about going back to [facility]; still, he is accepting and easy to convince that it won't be forever. Objective - General Observations Appearance: Disheveled Appears Stated Age: Yes Stature: Overweight Posture: WNL Eye Contact: Average Behavior/Activity: WNL - Interaction Observations Attitude Towards Examiner: Cooperative Stated Mood: Euthymic Affect: Full, Bright Thought Process: Coherent Perception: WNL Thought Content: WNL Hallucination Type: None Delusion Type: None - Cognitive Function Orientation: A&O x 4 Level of Consciousness: Awake, Alert, Appropriate Cognition: WNL, Impaired Memory Estimated Intelligence: Normal Insight: WNL Judgment Within Normal Limits: No Ability to Make Reasonable Decisions: Mildly Impaired - Medication Compliance Cooperative with Inpatient Medication Regimen: Yes - Group Participation Participates in Group Activities: Yes Assessment - Assessment Merits Inpatient Hospitalization: For Immediate Safety Clinical Impression: Efren is a 63-year-old newly white male who had a stroke three years ago and who comes to the hospital after eloping from [facility], being returned to the property to find the police waiting for him, and then declaring that he would kill himself if he had to go back to [facility] to stay. Plan - Plan Treatment Plan: Name: EFREN KUMAR Birthdate: 1955 [id number] Efren will engage with groups and individuals to have respite from [facility]. Cognitive testing will occur with Melchor Gramajo. Trazodone and gabapentin were increased to reduce anxiety and improve sleep. 03/26/19 Efren participated in cognitive testing with Melchor Gramajo and did fairly well. Sleep has improved. He will be discharged back to [facility] tomorrow. Medications: Current Medications Acetaminophen (Tylenol Tab*) 650 mg PO Q4H PRN PRN Reason: PAIN or TEMP > 101 F Last Admin: 03/25/19 19:37 Dose: 650 mg Al Hydrox/Mg Hydrox/Simethicone (Maalox Plus*) 30 ml PO Q4H PRN PRN Reason: INDIGESTION Last Admin: 03/25/19 17:04 Dose: 30 ml Albuterol (Ventolin Hfa Inhaler*) 2 puff INH Q4H PRN PRN Reason: SHORTNESS OF BREATH Cyanocobalamin (Vitamin B12 Tab*) 500 mcg PO DAILY [facility] Last Admin: 03/26/19 08:39 Dose: 500 mcg Duloxetine HCl (Cymbalta Cap*) 60 mg PO DAILY [facility] Last Admin: 03/26/19 08:39 Dose: 60 mg Epinephrine HCl (Adrenalin 1 Mg/Ml) 0.3 mg IM ONCE PRN PRN Reason: ANAPHYLAXIS Famotidine (Pepcid Tab*) 40 mg PO BEDTIME [facility] Last Admin: 03/25/19 19:37 Dose: 40 mg Fluticasone Propionate (Flonase Nasal [place] 50mcg*) 1 spray BOTH NARES DAILY [facility] Last Admin: 03/26/19 08:36 Dose: 1 spray Folic Acid (Folvite Tab*) 1 mg PO DAILY [facility] Last Admin: 03/26/19 08:39 Dose: 1 mg Furosemide (Lasix Tab*) 20 mg PO DAILY [facility] Last Admin: 03/26/19 08:39 Dose: 20 mg Gabapentin (Neurontin Cap(*)) 300 mg PO BEDTIME [facility] Last Admin: 03/25/19 22:16 Dose: 300 mg Lactulose (Lactulose*) 45 ml PO QID [facility] Last Admin: 03/26/19 08:36 Dose: 45 ml Levetiracetam (Keppra Tab*) 500 mg PO BID [facility] Last Admin: 03/26/19 08:39 Dose: 500 mg Lidocaine (Lidoderm 5% Patch*) 1 patch TRANSDERM 0900 [facility] Last Admin: 03/26/19 08:42 Dose: Not Given Magnesium Oxide (Magox 400 Tab*) 400 mg PO BID [facility] Last Admin: 03/26/19 08:39 Dose: 400 mg Midodrine (Midodrine) 2.5 mg PO BID [facility] Last Admin: 03/26/19 08:39 Dose: 2.5 mg Multivitamins (Theragran Tab*) 1 tab PO DAILY [facility] Last Admin: 03/26/19 08:39 Dose: 1 tab Ondansetron HCl (Zofran Odt Tab*) 4 mg PO Q8H PRN PRN Reason: NAUSEA/VOMITING Last Admin: 03/25/19 21:04 Dose: 4 mg Pharmacy Profile Note (Lidocaine Patch Remove*) 1 note PATCH OFF 2099 [facility] Last Admin: 03/25/19 23:41 Dose: Not Given Rifaximin (Xifaxan*) 550 mg PO BID [facility] Last Admin: 03/26/19 08:38 Dose: 550 mg Spironolactone (Aldactone Tab*) 100 mg PO DAILY [facility] Last Admin: 03/26/19 08:38 Dose: 100 mg Trazodone HCl (Desyrel Tab*) 50 mg PO BEDTIME [facility] Last Admin: 03/25/19 22:15 Dose: 50 mg - Discharge Plan Discharge Plan: Outpatient Follow Up
[2019-03-26] MEDS: Famotidine TAB* 20 MG PO SCH (20:38)
[2019-03-26] MEDS: Gabapentin CAP(*) 300 MG PO SCH (20:38)
[2019-03-26] MEDS: Lidocaine Patch REMOVE* 1 NOTE MISC PATCH OFF SCH (20:41)
[2019-03-26] MEDS: traZODone TAB* 50 MG TAB PO SCH (20:43)
--- NOTE | 2019-03-26 20:50 | PN ---
Subjective Date of Service: 03/26/19 Interval History: Resting in bed with wash cloth on forehead. Reports he has a headache that is "4 " out of 10 which is improved from "6" out of 10 yesterday. Reports he feels occasionally dizzy especially when changing positions. Patient also reports he has occasional nausea and "burning" in stomach. Reports Zofran ODT improved these symptoms last night. Reports he was given Tylenol for headache last night and it did not work. He requests Morphine as it works better. Objective Active Medications: Acetaminophen (Tylenol Tab*) 650 mg PO Q4H PRN PRN Reason: PAIN or TEMP > 101 F Last Admin: 03/25/19 19:37 Dose: 650 mg Al Hydrox/Mg Hydrox/Simethicone (Maalox Plus*) 30 ml PO Q4H PRN PRN Reason: INDIGESTION Last Admin: 03/26/19 14:43 Dose: 30 ml Albuterol (Ventolin Hfa Inhaler*) 2 puff INH Q4H PRN PRN Reason: SHORTNESS OF BREATH Cyanocobalamin (Vitamin B12 Tab*) 500 mcg PO DAILY [facility] Last Admin: 03/26/19 08:39 Dose: 500 mcg Duloxetine HCl (Cymbalta Cap*) 60 mg PO DAILY [facility] Last Admin: 03/26/19 08:39 Dose: 60 mg Epinephrine HCl (Adrenalin 1 Mg/Ml) 0.3 mg IM ONCE PRN PRN Reason: ANAPHYLAXIS Famotidine (Pepcid Tab*) 40 mg PO BEDTIME [facility] Last Admin: 03/25/19 19:37 Dose: 40 mg Fluticasone Propionate (Flonase Nasal [place] 50mcg*) 1 spray BOTH NARES DAILY [facility] Last Admin: 03/26/19 08:36 Dose: 1 spray Folic Acid (Folvite Tab*) 1 mg PO DAILY [facility] Last Admin: 03/26/19 08:39 Dose: 1 mg Furosemide (Lasix Tab*) 20 mg PO DAILY [facility] Last Admin: 03/26/19 08:39 Dose: 20 mg Gabapentin (Neurontin Cap(*)) 300 mg PO BEDTIME [facility] Last Admin: 03/25/19 22:16 Dose: 300 mg Lactulose (Lactulose*) 45 ml PO QID [facility] Last Admin: 03/26/19 18:13 Dose: 45 ml Levetiracetam (Keppra Tab*) 500 mg PO BID [facility] Last Admin: 03/26/19 08:39 Dose: 500 mg Lidocaine (Lidoderm 5% Patch*) 1 patch TRANSDERM 0900 [facility] Last Admin: 03/26/19 08:42 Dose: Not Given Magnesium Oxide (Magox 400 Tab*) 400 mg PO BID [facility] Last Admin: 03/26/19 08:39 Dose: 400 mg Midodrine (Midodrine) 2.5 mg PO BID [facility] Last Admin: 03/26/19 08:39 Dose: 2.5 mg Multivitamins (Theragran Tab*) 1 tab PO DAILY [facility] Last Admin: 03/26/19 08:39 Dose: 1 tab Ondansetron HCl (Zofran Odt Tab*) 4 mg PO Q8H PRN PRN Reason: NAUSEA/VOMITING Last Admin: 03/25/19 21:04 Dose: 4 mg Pharmacy Profile Note (Lidocaine Patch Remove*) 1 note PATCH OFF 2100 [facility] Last Admin: 03/25/19 23:41 Dose: Not Given Rifaximin (Xifaxan*) 550 mg PO BID [facility] Last Admin: 03/26/19 08:38 Dose: 550 mg Spironolactone (Aldactone Tab*) 100 mg PO DAILY [facility] Last Admin: 03/26/19 08:38 Dose: 100 mg Trazodone HCl (Desyrel Tab*) 50 mg PO BEDTIME [facility] Last Admin: 03/25/19 22:15 Dose: 50 mg Oxygen Devices in Use Now: None Appearance: Comfortable, NAD Eyes: No Scleral Icterus Ears/Nose/Mouth/Throat: Clear Oropharnyx, Mucous Membranes Moist Neck: NL Appearance and Movements; NL JVP Respiratory: Symmetrical Chest Expansion and Respiratory Effort, Clear to Auscultation Cardiovascular: NL Sounds; No Murmurs; No JVD, RRR, No Edema Abdominal: NL Sounds; No Tenderness; No Distention Lymphatic: No Cervical Adenopathy Extremities: No Clubbing, Cyanosis Skin: No Rash or Ulcers Neurological: Alert and Oriented x 3, NL Sensation, NL Muscle Strength and Tone , - - Cranial nerves grossly intact. No drift. Coordination intact Nutrition: Taking PO's Result Diagrams: 03/23/19 23:01 03/23/19 23:01 Additional Lab and Data: . Microbiology and Other Data: . Assess/Plan/Problems-Billing Assessment: 63 yr old male with pmh alcoholic cirrohsis, hepatic encephalopathy, subdural hematoma, htn, asthma, depression, seizure, stroke, - Patient Problems (1) Suicidal ideation Comment: - Per psych (2) Nausea Comment: - Suspected acid reflux related. - Cont pepcid - Recommend trying Maalox when patient has nausea and "burning" prn - Cont Zofran ODT prn as needed - (3) Headache Comment: - Cont Tylenol PRN - Brain CT ordered - Labs ordered (4) Dizziness Comment: - Orthostatic vital signs ordered (5) Alcoholic cirrhosis Comment: - Cont lactolose Attending: Guillermo Marie
[2019-03-27] MEDS ORDERED: oxyCODONE TAB* 5 MG TAB PO ONE ×2 (04:36→10:31)
[2019-03-27] MEDS ORDERED: oxyCODONE TAB* 5 MG TAB ONE (04:41)
[2019-03-27] MEDS: Acetaminophen TAB* 325 MG PO PRN ×2 (04:42→09:50)
[2019-03-27 08:49] LABS: ABS Eosinophils 0.2 10^3/ul (0-0.6); ABS Lymphocytes 1.2 10^3/ul (1.0-4.8); ABS Monocytes 0.5 10^3/ul (0-0.8); ABS Neutrophils 1.7 10^3/ul (1.5-7.7); Eosinophil % 6.9 %; Hematocrit 30 % (42-52); Hemoglobin 9.4 g/dL (14.0-18.0); Mean Corpuscular HGB Conc 31 g/dL (31-36); Mean Corpuscular Hemoglobin 25 pg (27-31); Mean Corpuscular Volume 82 fL (80-94); Nucleated Red Blood Cells % 0.1; Platelet Count 104 10^3/uL (150-450); Red Blood Count 3.72 10^6 /uL (4.18-5.48); Red Cell Distribution Width 21 % (10-15); White Blood Count 3.6 10^3/uL (3.5-10.8)
[2019-03-27 09:07] LABS: Calcium 8.6 mg/dL (8.6-10.3); Potassium 3.9 mmol/L (3.5-5.0)
[2019-03-27 09:21] VITALS: BP 161/71
[2019-03-27] MEDS: Lactulose* 15 ML UDC PO SCH ×2 (09:21→12:47)
[2019-03-27] MEDS: Folic Acid TAB* 1 MG PO SCH (09:39)
[2019-03-27] MEDS: Fluticasone NASAL SPRAY 50MCG* 16 gm SPRAY BTL BOTH NARES SCH (09:39)
[2019-03-27] MEDS: CMCS: Midodrine 5 MG TAB PO SCH (09:40)
[2019-03-27] MEDS: Spironolactone TAB* 25 MG PO SCH (09:40)
[2019-03-27] MEDS: RiFAXimin* 550 MG TAB PO SCH (09:40)
[2019-03-27] MEDS: DULoxetine DR CAP* 60 MG CAP.DR PO SCH (09:40)
[2019-03-27] MEDS: Magnesium Oxide TAB* 400 MG PO SCH (09:40)
[2019-03-27] MEDS: Cyanocobalamin TAB* 500 MCG PO SCH (09:40)
[2019-03-27] MEDS: levETIRAcetam TAB* 500 MG PO SCH (09:40)
[2019-03-27] MEDS: Vitamin THERAPEUTIC TAB PO SCH (09:40)
[2019-03-27] MEDS: Furosemide TAB* 20 MG PO SCH (09:40)
[2019-03-27] MEDS: Lidocaine PATCH 5%* 1 PATCH TRANSDERM SCH (09:48)
[2019-03-27 10:29] LABS: BUN/Creatinine Ratio 8.3 (8-20); EGFR African American 96.4 (>60); EGFR Non-African American 79.6 (>60)
--- NOTE | 2019-03-27 15:00 | CONS ---
PSYCHOLOGICAL REPORT: DATE OF CONSULT: 03/26/19 PROCEDURE CODE: [id number] REASON FOR REFERRAL: Jarad was referred by his nurse practitioner, Mckenzie Ramos with concerns regarding cognitive decline secondary to a stroke occurring approximately a year ago with some subsequent concerns regarding falls where he incurred traumatic brain injury. TEST ADMINISTERED: Jarad sat for a truncated administration of the Idya Adult Intelligence Scale Scale-Fourth edition (WAIS-IV). He was given feedback and individual conversation thereafter with good results. RELEVANT HISTORY: Jarad has had significant physical difficulties since experiencing a stroke with subsequent rehabilitation placement at [facility]. He had been living with his sister who he describes as very attentive and supportive of him until he continued to have recurrent falls with hopes that he could attend rehabilitation services in order to stop from having such problems. Jarad describes an unsteady adjustment to treatment, describing how he had appreciated the efforts here at [facility] of staff to help him in any way possible, commenting on staff's professionalism and empathic response. He describes [facility] staff as being less well trained and less capable. He was hopeful of obtaining independent living situation as soon as he is able and get discharge from [facility] in a timely fashion. Jarad was brought to [facility] for evaluation after he had expressed suicidal rumination, which included using a gun at his ex-'s home. Currently, he denies having had suicidal intent and attributes his impulsive actions and statements in the context of having had poor sleep the prior 4 nights and being frustrated. Jarad engaged well in clinical conversation and at least for the present time reliably denies experiencing suicidal thoughts. He is clear and coherent in conversation and spontaneous speech. Jarad is well related and able to offer relevant personal experiences in a topical fashion both in group and individual conversation. He describes having had a long career in the [employer] business, describing being quite successful and elaborating on some of his work experiences. Presently, Jarad impresses as being future oriented and appreciative of his sister's help especially. He describes being compliant with recommended physical therapy and exercises, and describes being motivated to reengage in such activities in order to improve function. TEST RESULTS: Jarad attained scale scores of 9 on the Block Designed and Matrix reasoning subtest on this administration of the WAIS-IV, which is reflective of average intellectual functioning. His scores here impress as being a low estimation of his aptitudes as it was clear to this financial writer that he could have completed more items and scored better if he had been afforded more time. Jarad' s language skills remain intact as evidenced by a scale score of 14 on similarity subtest. Moreover, his ability to engage in spontaneous conversation without any difficulties in retrieval or slowing or stammering are reflective of good and intact cognitive abilities in terms of language used. Concerns are that he has had some right frontal hemispheric difficulties secondary either to stroke or possible head injuries incurred during falls. IMPRESSION AND RECOMMENDATIONS: Currently, Jarad impresses as having made good progress in terms of managing acute threat in terms of suicidal rumination and/ or behaviors. He impresses as having stabilized psychiatrically quite quickly with ongoing concerns regarding medical condition and subsequent followup in physical therapies. He impresses as being motivated to engage and recommended physical therapies and exercise currently and certainly is motivated to get better to the point of being discharged from his current half-way care facility placement. He was unsure of how to proceed, but impresses as having personal resources both in terms of financial supports and as well as intellectual and emotional supports to be successful in this fashion. [id number]/[facility] #: [id number] MARILUZ
--- NOTE | 2019-03-27 22:10 | DS ---
CC: [facility] * DISCHARGE SUMMARY: DATE OF ADMISSION: 03/23/19 DATE OF DISCHARGE: 03/27/19 PROVIDER: Mckenzie Ramos NP, in Psychiatry. SUPERVISING PHYSICIAN: Dr. Matt Carranza.* (DICTATED BY MCKENZIE RAMOS NP) DIAGNOSES: 1. Adjustment disorder, unspecified. 2. Alcohol use disorder. CONDITION AT THE TIME OF DISCHARGE: Improved, psychiatrically cleared, stable. Jarad participated in groups and was social with peers. His sister is agreeable to his discharge. He did well on the unit psychiatrically. He tolerated medications well and he will be treated at [facility]. MENTAL STATUS EXAMINATION: At the time of discharge, Jarad is calm, cooperative , makes good eye contact. He is alert and oriented x4. His grooming is good. His speech pace is normal. His thought processes are logical. He is not psychotic or delusional. He denies AH, VH, SI, and HI. His insight and judgment are fair to good. He is willing to follow up and he is urged to see his assigned therapist. DISCHARGE INSTRUCTIONS TO THE PATIENT: A. Medications: The changes are the increase of duloxetine to 60 mg daily and the addition of trazodone 50 mg at bedtime. The rest of Jarad's medications include: 1. Albuterol 2 puffs q.4 hours p.r.n. shortness of breath. 2. Vitamin B12 of 500 mcg daily. 3. Epinephrine 0.3 mg/0.3 mL EpiPen p.r.n. allergy. 4. Pepcid 20 mg tablet, he takes 40 mg at bedtime. 5. Flonase nasal spray. 6. Folic acid 1 mg daily. 7. Lasix 20 mg daily. 8. Gabapentin 300 mg at bedtime. 9. Lactulose 45 mL 4 times a day. 10. Keppra 500 mg b.i.d. 11. Lidocaine patch 5% daily and to remove at bedtime. 12. Magnesium oxide 400 mg b.i.d. 13. Midodrine 2.5 mg b.i.d. 14. Ondansetron 4 mg q.8 hours p.r.n. nausea. 15. Ranitidine 300 mg q.p.m. 16. Rifaximin 550 p.o. b.i.d. 17. Spironolactone 100 mg daily. 18. Nasacort 1 spray both nostrils daily. B. Diet is regular. C. Activities as tolerated. He is a nonsmoker at this time. There are no studies pending at the time of discharge. D. Followup care: He will be seeing his providers at [facility]. He sees Tamiko Pizano LMSW on 03/27/19. Dr. Elidia Kahn follows Jarad at [facility]. E. Disposition: Jarad will be returning to [facility], although this is not his desired location, this is where he needs to go at this time. F. Substance abuse followup: As Jarad is not able to acquire alcohol and is not permitted to drink it at [facility], substance abuse is not indicated. He had been in treatment in the past. HOSPITAL COURSE: Part A: Chief complaint: "I was going to go to my ex-'s house to get a gun to shoot myself, but I don't think I would have gotten one, but I don't know." The patient is a 63-year-old white male with a history of extensive medical problems and alcohol abuse, who arrives brought in by ambulance and is here on a 9.39 status after leaving the [facility] by taxi to go to his sister's house and then discovering that he was being sought by the police, he then returned to the [facility] and threatened suicide. Jarad is found today lying on his bed in his room. He complains of high anxiety , not having slept in 4 days and having numb feet. He mentions morphine use to calm him down, although he says he is not requesting that. He had a stroke what he says was a year ago and he spends quite some time explaining how it happened in order to get to the fact that eventually in August he moved in with his sister, Cassandra. He then fell in a parking lot and continued falling in a lot of places. He met with social work and Cassandra and they sent him to [facility] and that was in August. He states that he is 7 to 8 months sober. He has done that through going to in [facility]. His timeline is unclear and he seems unwilling to be more specific. He said that he is really disappointed in [facility]. Jarad says he is not suicidal anymore and that he does not know if he ever really was, but he did have quite a shocking plan to end his life. His sleep has decreased over the past 4 days. He does not appear to feel guilty. He seems quite energetic, in fact. He is not experiencing suicidal ideation at this time. On the opposite end of the symptom scale, he is distractible and he speaks an incredible amount. He names the wealth that he accumulated and how he did it. He is very difficult to rope into a reasonable conversation. Part B: Psychiatric treatment was rendered. Jarad was admitted to the adult behavioral unit and placed on q.15-minute checks for safety. Jarad did well on the unit and went to groups and interacted with peers well. He stated he enjoyed the food very much. He tolerated the med changes well. Cymbalta was increased to 60 mg and trazodone 50 mg was added to aid in his sleep. His presentation changed significantly once he got some sleep. He was less circumstantial. His conversation was more directable and he continued to insist that he was not suicidal. There was a concern that Jarad might have had manic symptoms. These are out of character for him. He is 63, he has never had these symptoms before, but it is most likely that the lack of sleep for 4 days caused him to have some of these symptoms that were noted in part A. The timeline issue that he was having when he gave his initial history was corrected by his sister, Cassandra. Cassandra indicates that the stroke was 3 years ago and that some of the reasons that he was falling when he was living with her was that he was intoxicated as well as having had a stroke. The combination was not a good one for Jarad. I did speak with Cassandra a few times and she was in support of his return to [facility], even though he does not like it there. He does need additional care as he loses track of things, he does not always know where he is going and what he is going to do there, although he does return to a reasonable knowledge within a few minutes. We did do some cognitive testing and although his pace is slow, he is not impaired, in fact his scores indicate someone in the normal typical range. No consults were entered for Jarad. I did consult with his nurse practitioner at [facility], Sepideh Bennett. She indicated that although his lab values are not what are typically normal, they were acceptable for Jarad given his liver failure and his status post stroke. As far as his psychiatric presentation goes, he is improved. He is happy, he seems almost joyful to be in a place where he can converse with people of his own age and younger, and it seems as though he became more focused on the idea of leaving [facility] and possibly with the notion of effecting that change himself. MCKENZIE RAMOS, BUTTON PUSHER [id number]/[facility] #: [id number] MARILUZ
== END 2019-03-27 14:00 | DRG 882 ==
LOC: ED 20:56 → BSU 23:20
PROVIDERS: ADMIT Psychiatry & Neurology Psychiatry; ATTEND Psychiatry & Neurology Psychiatry
DX: F43.20 Adjustment disorder, unspecified (principal); R45.851 Suicidal ideations; E11.9 Type 2 diabetes mellitus without complications; E78.00 Pure hypercholesterolemia, unspecified; I10 Essential (primary) hypertension; J45.909 Unspecified asthma, uncomplicated; M17.0 Bilateral primary osteoarthritis of knee; F17.210 Nicotine dependence, cigarettes, uncomplicated; M25.569 Pain in unspecified knee; F32.9 Major depressive disorder, single episode, unspecified; K70.30 Alcoholic cirrhosis of liver without ascites; F44.9 Dissociative and conversion disorder, unspecified; K44.9 Diaphragmatic hernia without obstruction or gangrene; R51 Headache; R42 Dizziness and giddiness; R11.2 Nausea with vomiting, unspecified; Z88.8 Allergy status to other drugs, medicaments and biological substances; Z86.14 Personal history of Methicillin resistant Staphylococcus aureus infection; Z91.030 Bee allergy status; Z90.49 Acquired absence of other specified parts of digestive tract; Z86.73 Personal history of transient ischemic attack (TIA), and cerebral infarction without residual deficits; Z82.3 Family history of stroke; Z72.89 Other problems related to lifestyle
CPT/HCPCS: 36415; 70450; 80048; 80053; 80061; 80307; 80320; 80329; 81003; 82140; 83036; 84443; 85025; 96130; 99222; 99232; 99233; 99238; 99284; A9270-GY; G0480

== ENCOUNTER 2019-03-31 20:06 | Emergency (ER) | payer MEDICARE ==
[2019-03-31] MEDS ORDERED: NS 0.9% 1000 ML** 1,000 ML IV ONE (20:32)
[2019-03-31] MEDS ORDERED: Morphine 4 MG/ML VIAL (1 ml) 4 MG/ML VIAL IV ONE (20:33)
[2019-03-31] MEDS ORDERED: Metoclopramide IV* 5 MG/ML 2 ML VIAL IV SLOW PU ONE (20:33)
--- NOTE | 2019-03-31 20:43 | ED ---
Abdominal Pain/Male - HPI Summary HPI Summary: Patient is a 63 y/o M presenting to ED via EMS with complaints of abdominal pain and N/V. Abdominal pain is described as a "burning". He states that he experienced similar Sx a couple of weeks ago and notes that he has an appointment with GI tomorrow. He has been taking lactulose 45 mg four times a day. Patient states that he had a "sour stomach" for the past few days and notes an associated decreased appetite. PMHx of diabetes, HLD, HTN, asthma, alcohol abuse, gall bladder disease, depression, seizures. PSHx of appendectomy and cholecystectomy. On triage, pain is rated 8/10, nothing is noted to aggravate/alleviate Sx. Home medications and allergies are reviewed. - History of Current Complaint Chief Complaint: EDNauseaVomitDiarrh Stated Complaint: NAUSEA/VOMITING PER EMS Time Seen by Provider: 03/31/19 20:16 Hx Obtained From: Patient Onset/Duration: Still Present Timing: Constant Severity Currently: Severe Pain Intensity: 8 Pain Scale Used: 0-10 Numeric Character: Burning Aggravating Factor(s): Nothing Alleviating Factor(s): Nothing Associated Signs And Symptoms: Positive: Decreased Appetite, Nausea, Vomiting - Allergies/Home Medications Allergies/Adverse Reactions: Allergies Allergy/AdvReac Type Severity Reaction Status Date / Time bee pollen Allergy Hives Verified 03/16/19 22:42 bee venom protein (honey bee) Allergy Hives Verified 03/16/19 22:42 hydroxyzine [From Atarax] Allergy See Comment Verified 03/16/19 22:42 lorazepam [From Ativan] Allergy See Comment Verified 03/16/19 22:42 sertraline Allergy Rash And Verified 03/16/19 22:42 Itching PMH/Surg Hx/FS Hx/Imm Hx Endocrine/Hematology History: Reports: Hx Diabetes - elevated glucose after acute liver failure - diet controlled Denies: Hx Anticoagulant Therapy, Hx Thyroid Disease, Hx Anemia, Hx Unexplained Bleeding Cardiovascular History: Reports: Hx Hypercholesterolemia, Hx Hypertension Denies: Hx Aneurysm, Hx Angina, Hx Angioplasty, Hx Auto Implanted Cardiovert Defib, Hx Cardiac Arrest, Hx Cardiomegaly, Hx Congenital Heart Disease, Hx Congestive Heart Failure, Hx Coronary Artery Disease, Hx Deep Vein Thrombosis, Hx Embolism, Hx Hypotension, Hx Pacemaker/ICD, Hx Peripheral Vascular Disease, Hx Rheumatic Fever, Hx Syncope, Hx Valvular Heart Disease, Other Cardiovascular Problems/Disorders Respiratory History: Reports: Hx Asthma, Hx Chronic Bronchitis, Hx Seasonal Allergies - hay fever Denies: Hx Chronic Obstructive Pulmonary Disease (COPD), Hx Cystic Fibrosis, Hx Lung Cancer, Hx Pleural Effusion, Hx Pneumonia, Hx Pulmonary Edema, Hx Pulmonary Embolism, Hx Sleep Apnea, Other Respiratory Problems/Disorders GI History: Reports: Hx Cirrhosis, Hx Gall Bladder Disease, Hx Hiatal Hernia, Hx Ulcer Denies: Hx Crohn's Disease, Hx Diverticulosis, Hx Gastroesophageal Reflux Disease, Hx Gastrointestinal Bleed, Hx Irritable Bowel, Hx Jaundice, Hx Obstructive Bowel, Hx Ileostomy, Hx Pyloric Stenosis, Other GI Disorders History: Denies: Hx Dialysis, Hx Renal Disease Musculoskeletal History: Reports: Hx Arthritis - both knees, Hx Orthopedic Injury Denies: Hx Back Problems, Hx Bursitis, Hx Congenital Bone Abnormalities, Hx Fibromyalgia, Hx Gout, Hx Osteoporosis, Hx Scoliosis, Hx Tendonitis, Other Musculoskeletal History Sensory History: Reports: Hx Contacts or Glasses Denies: Hx Cataracts, Hx Eye Injury, Hx Eye Prosthesis, Hx Glaucoma, Hx Legally Blind, Hx Macular Degeneration, Hx Vision Problem, Hx Deafness, Hx Hearing Aid, Hx Hearing Problem, Other Sensory Impairments Opthamlomology History: Reports: Hx Contacts or Glasses Denies: Hx Cataracts, Hx Eye Injury, Hx Eye Prosthesis, Hx Glaucoma, Hx Legally Blind, Hx Macular Degeneration, Hx Vision Problem, Other Sensory Impairments Neurological History: Reports: Hx Headaches, Hx Seizures, Other Neuro Impairments/Disorders - Subdural Hematoma Denies: Hx Dementia Psychiatric History: Reports: Hx Depression, Hx Substance Abuse - ETOH Denies: Hx Anxiety, Hx Attention Deficit Hyperactivity Disorder, Hx Eating Disorder, Hx Panic Disorder, Hx Post Traumatic Stress Disorder, Hx Inpatient Treatment, Hx Community Mental Health Tx, Hx Schizophrenia, Hx Bipolar Disorder , Hx Suicide Attempt, Hx of Violent Episodes Against Others, Other Psychiatric Issues/Disorders - Cancer History Cancer Type, Location and Year: None reported - Surgical History Surgery Procedure, Year, and Place: RIGHT ANKLE ORIF. LEFT KNEE TENDON REPAIR. CHOLECYSTECTOMY. APPENDECTOMY. TONSILLECTOMY Hx Anesthesia Reactions: No Infectious Disease History: No Infectious Disease History: Reports: Hx of Known/Suspected MRSA Denies: Hx Clostridium Difficile, Hx Hepatitis, Hx Human Immunodeficiency Virus (HIV), Hx Shingles, Hx Tuberculosis, History Other Infectious Disease, Traveled Outside the [place] in Last 30 Days - Family History Known Family History: Negative: Cardiac Disease, Diabetes - Social History Alcohol Use: None Alcohol Amount: 07/30/18 - states no use. Hx Substance Use: Yes Substance Use Type: Reports: None Substance Use Comment - Amount & Last Used: pt states he hasn't had a drink in 2 weeks Hx Tobacco Use: Yes Smoking Status (MU): Light Every Day Tobacco Smoker Type: Cigarettes Length of Time of Smoking/Using Tobacco: 5 years Have You Smoked in the Last Year: No Review of Systems Negative: Fever Gastrointestinal: Other - positive - decreased appetite Positive: Abdominal Pain, Vomiting, Nausea All Other Systems Reviewed And Are Negative: Yes Physical Exam - Summary Physical Exam Summary: VITAL SIGNS: Reviewed. GENERAL: Patient is a well-developed and nourished male who is lying comfortable in the stretcher. Patient is not in any acute respiratory distress. HEAD AND FACE: No signs of trauma. No ecchymosis, hematomas or skull depressions. No sinus tenderness. EYES: PERRLA, EOMI x 2, No injected conjunctiva, no nystagmus. Icteric sclera noted EARS: Hearing grossly intact. Ear canals and tympanic membranes are within normal limits. MOUTH: Oropharynx within normal limits. NECK: Supple, trachea is midline, no adenopathy, no JVD, no carotid bruit, no c- spine tenderness, neck with full ROM CHEST: Symmetric, no tenderness at palpation LUNGS: Clear to auscultation bilaterally. No wheezing or crackles. CVS: Mild tachycardia, S1 and S2 present, no murmurs or gallops appreciated. ABDOMEN: Soft, non-tender. Patient has an umbilical hernia that is not tender, abdomen is mildly distended. No rebound no guarding, and no masses palpated. Bowel sounds are normal. EXTREMITIES: FROM in all major joints, no edema, no cyanosis or clubbing. NEURO: Alert and oriented x 3. No acute neurological deficits. Speech is normal and follows commands. SKIN: Dry and warm Triage Information Reviewed: Yes Vital Signs On Initial Exam: Initial Vitals Temp Pulse Resp BP Pulse Ox 98.7 F 112 18 143/83 98 03/31/19 20:11 03/31/19 20:11 03/31/19 20:11 03/31/19 20:11 03/31/19 20:11 Vital Signs Reviewed: Yes Diagnostics - Vital Signs Vital Signs Temp Pulse Resp BP Pulse Ox 03/31/19 20:11 98.7 F 112 18 143/83 98 - Laboratory Result Diagrams: 03/31/19 20:47 03/31/19 20:47 Lab Statement: Any lab studies that have been ordered have been reviewed, and results considered in the medical decision making process. - CT CT ABD/PEL CT Interpretation Completed By: Radiologist Summary of CT Findings: CT ABD/PEL IMPRESSION: 1. Hepatic cirrhosis and portal hypertension. 2. Possible esophagitis. 3. Distal colonic diverticulosis. 4. Umbilical hernia. No strangulation. THIS REPORT WAS REVIEWED BY DR. CALERO Re-Evaluation - Re-Evaluation First Eval Re-Evaluation Time: 22:57 Comment: Results of labs and tests were discussed with the patient. Patient will be discharged to home and follow up with PCP. Strict return precautions were given. Patient is agreeable with this plan. Abdominal Pain Male Course/Dx - Course Course Of Treatment: Patient is a 63 y/o M presenting to ED via EMS with complaints of abdominal pain and N/V. Abdominal pain is described as a "burning ". He states that he experienced similar Sx a couple of weeks ago and notes that he has an appointment with GI tomorrow. He has been taking lactulose 45 mg four times a day. Patient states that he had a "sour stomach" for the past few days and notes an associated decreased appetite. PMHx of diabetes, HLD, HTN, asthma, alcohol abuse, gall bladder disease, depression, seizures. PSHx of appendectomy and cholecystectomy. On physical exam, icteric sclera noted, patient has an umbilical hernia that is not tender, abdomen is mildly distended. He is mildly tachycardic. Labs showed RBC 3.96, Hgb 10, Hct 32, MCH 25, RDW 20, Plt count 134, MPV 7.2, INR 1.75, sodium 133, chloride 98, BUN/ creatinine ratio 7.6, glucose 168, total bilirubin 3.6, alk phos 3.6, albumin 2.8, albumin/globulin ratio 0.7, amylase 26, lipase 62. CT ABD/PEL IMPRESSION: 1. Hepatic cirrhosis and portal hypertension. 2. Possible esophagitis. 3. Distal colonic diverticulosis. 4. Umbilical hernia. No strangulation. During ED course, patient received fluids, morphine 4 mg IV, reglan 10 mg IV. Results of labs and tests were discussed with the patient. Patient will be discharged to home and follow up with PCP. Strict return precautions were given. Patient is agreeable with this plan. - Diagnoses Provider Diagnoses: Esophagitis, Nausea and vomiting Discharge - Sign-Out/Discharge Documenting (check all that apply): Patient Departure - discharge Patient Received Moderate/Deep Sedation with Procedure: No - Discharge Plan Condition: Stable Disposition: HOME Prescriptions: Metoclopramide TAB* [Reglan TAB*] 10 mg PO Q6H PRN #20 tab PRN Reason: Nausea/Vomiting Patient Education Materials: Acute Nausea and Vomiting (ED), Esophagitis (ED) Referrals: Rosie Noriega MD [Primary Care Provider] - 3 Days Additional Instructions: PLEASE RETURN TO THE ED IMMEDIATELY FOR WORSENING OR CONCERNING SYMPTOMS. FOLLOW UP WITH YOUR PRIMARY CARE PHYSICIAN WITHIN THREE DAYS AND YOUR GI DOCTOR TOMORROW. TAKE OMEPRAZOLE TWICE A DAY - Attestation Statements Document Initiated by Scribe: Yes Documenting Scribe: MICHAEL MASCORRO Provider For Whom Scribe is Documenting (Include Credential): BEATRIZ CALERO MD Scribe Attestation: MICHAEL Garay, scribed for BEATRIZ CALERO MD on 03/31/19 at 2336. Status of Scribe Document: Ready
[2019-03-31 21:04] LABS: ABS Basophils 0.1 10^3/ul (0-0.2); ABS Eosinophils 0.1 10^3/ul (0-0.6); ABS Monocytes 0.8 10^3/ul (0-0.8); ABS Neutrophils 3.3 10^3/ul (1.5-7.7); Eosinophil % 2.2 %; Hematocrit 32 % (42-52); Mean Corpuscular HGB Conc 31 g/dL (31-36); Mean Corpuscular Hemoglobin 25 pg (27-31); Mean Corpuscular Volume 80 fL (80-94); Mean Platelet Volume 7.2 fL (7.4-10.4); Nucleated Red Blood Cells % 0.1; Platelet Count 134 10^3/uL (150-450); Red Blood Count 3.96 10^6 /uL (4.18-5.48); Red Cell Distribution Width 20 % (10-15); White Blood Count 5.3 10^3/uL (3.5-10.8)
[2019-03-31 21:07] LABS: INR 1.75 (0.82-1.09)
[2019-03-31 21:16] LABS: Albumin 2.8 g/dL (3.2-5.2); Albumin/Globulin Ratio 0.7 (1-3); BUN/Creatinine Ratio 7.6 (8-20); C Reactive Protein 7.28 mg/L (<8.01); Calcium 9.4 mg/dL (8.6-10.3); EGFR African American 101.2 (>60); EGFR Non-African American 83.6 (>60); Magnesium 1.9 mg/dL (1.9-2.7); Potassium 4.1 mmol/L (3.5-5.0); Total Bilirubin 3.6 mg/dL (0.2-1.0); Total Protein 6.8 g/dL (6.4-8.9)
[2019-03-31] MEDS ORDERED: Iodixanol* (CONTRAST) 320 MG/ML 100 ML SDV IV ONE (21:22)
[2019-03-31 23:14] VITALS: BP 139/84
== END 2019-03-31 23:14 | disposition home or self-care (01) ==
LOC: ED 20:06
DX: K20.9 Esophagitis, unspecified (principal); R11.2 Nausea with vomiting, unspecified; E11.9 Type 2 diabetes mellitus without complications; I10 Essential (primary) hypertension; F17.210 Nicotine dependence, cigarettes, uncomplicated; Z86.14 Personal history of Methicillin resistant Staphylococcus aureus infection
CPT/HCPCS: 36415; 74177; 80053; 82150; 83690; 83735; 85025; 85610; 85730; 86140; 99283; J2270; J2765; Q9967

== ENCOUNTER 2019-04-02 22:34 | Emergency (ER) | payer MEDICARE ==
--- OUTSIDE RECORDS SUMMARY | 2019-04-02 23:03 | XMS REPORT | Continuity of Care Document ---
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 Elidia Kahn DO Primary Care Physician Unavailable Payers Date Identification Numbers Payment Provider Subscriber Expires: 2018 Policy Number: [id number] [facility] CANDIDO Lorenz PayID: [id number] [address] [address] [place] [address] Policy Number: [id number] Medicare Jarad Mata PayID: [id number] [facility] [address] [facility][1] [place] [address] Problems Active Problems Provider Date Ascites Onset: 11/02/2014 H/O: anticoagulant therapy Onset: 11/02/2014 For resuscitation Onset: 11/02/2014 Alcohol abuse Onset: 11/02/2014 Hypertensive disorder Onset: Hemochromatosis Onset: Hyperlipidemia Onset: Arthritis Onset: Platelet count below reference range Onset: Seizure Onset: Physical deconditioning Onset: Hyperglycemia Onset: Hepatic encephalopathy Onset: Gastrointestinal hemorrhage Onset: Alcohol withdrawal delirium Onset: Contusion of cerebrum Onset: Bacteremia Onset: Anemia Onset: Alcoholic hepatitis Onset: Diabetes mellitus Onset: Unsteady when walking Onset: Subdural hematoma Onset: Increased lactic acid level Onset: Cellulitis of abdominal wall Onset: Social History Type Date Description Comments Sex Unknown Tobacco Use Start: Unknown Patient is a current smoker, smokes some days Smoking Status Reviewed: 04/01/19 Patient is a current smoker, smokes some days Allergies, Adverse Reactions, Alerts Description No Known Drug Allergies Medications Active Medications SIG Qnty Indications Ordering Date Provider Omeprazole take 1 capsule 60caps Anyi 04/01/[address] by mouth twice MD Dalton daily. take 30-60 minutes before a meal. Spironolactone take 1 tablet by 30tabs Anyi 04/30/2018 50mg Tablets mouth every day MD Dalton Vitamin B-12 Every Day Unknown 02/14/2017 500mcg Tablets Epipen 2-Maciej Once Unknown 01/18/2017 0.3mg/0.3ML Solution Auto-Inject Reglan Daily Unknown 10mg Tablets Duloxetine HCL 1 by mouth every Unknown 60mg Caps DR day Part Acetaminophen Unknown 325mg Tablets Proventil HFA Unknown 108(90Base) mcg/Act Aerosol Nasacort Allergy 24HR spray 1 spray Unknown into each 55mcg/Act Aerosol nostril one time daily Magnesium Oxide Unknown 400mg Tablets Midodrine HCL FemiElidia, 2.5mg Tablets DO Furosemide Antonietta Wesley 20mg Tablets MD russell Xifaxan Unknown 550mg Tablets Lactulose Antonietta Wesley 10GM/15ML MD russell Solution Keppra 1 Tablet bid Unknown 500mg Tablets Gabapentin Daily Unknown 300mg Capsules Hydroxyzine HCL prn Unknown 25mg Tablets History Medications Keflex Three Times Daily 21caps Unknown 06/15/2017 - 500mg Capsules 06/27/2017 Aldactone Every Day 120tabs Unknown 06/15/2017 - 25mg Tablets 06/30/2017 Magnesium Oxide Every Day 60tabs Unknown 06/15/2017 - 05/11/2016 400(240Mg) mg Tablets Lasix Every Day 60tabs Unknown 06/15/2017 - 40mg Tablets 06/27/2017 Ultram Every 6 Hours Unknown 06/13/2017 - 50mg Tablets 06/30/2017 Lasix 2 Tabs PO In Am And 90tabs Leyla Verduzco 03/12/2017 - 20mg Tablets 1 Tab In Afternoon MILADIS Williamson 06/15/2017 Spironolactone 1 by mouth every 30tabs Leyla Verduzco 03/12/2017 - 50mg day MILADIS Williamson 06/15/2017 Tablets Vitamin B-1 Every Day 30tabs Unknown 01/20/2017 - 100mg Tablets 05/11/2016 Lactulose take 30 milliliters 474ml Renny Laguna 01/08/2017 - 10GM/15ML by mouthbid as Justo MEIER 06/27/2017 Solution directed Xifaxan 1 tab by mouth 28tabs Michael Kwan 01/08/2017 - 550mg Tablets daily M.DEze 05/11/2016 Atarax Twice Daily Unknown 11/07/2016 - 25mg Tablets 11/07/2016 Atarax Q8H prn For Itching 20tabs Unknown 10/17/2016 - 25mg Tablets 01/05/2017 Lasix 30tabs Unknown 10/17/2016 - 20mg Tablets 03/12/2017 Motrin Every 6 Hours prn Unknown 10/15/2016 - Repack For Pain 01/05/2017 800mg Tablets Aspirin Adult Low Dose Every Day Unknown 10/11/2016 - 01/05/[address] Ornelas HFA Q4H prn For Unknown 09/28/2016 - 108(90Base) Sob/Wheezing 01/20/2017 mcg/Act Aerosol Folic Acid Every Day Unknown 06/17/2016 - 1mg Tablets 05/11/2016 Neurontin Bedtime 30caps Unknown 05/12/2016 - 300mg Capsules 06/13/2016 Neurontin Bedtime 30caps Unknown 05/12/2016 - 300mg Capsules 05/12/2016 Inderal Every Day 30tabs Unknown 05/11/2016 - 10mg Tablets 05/11/2016 Dilantin Infatabs Bedtime 120units Unknown 05/11/2016 - 50mg 05/11/2016 Chewtabs Aldactone Every Day 30tabs Unknown 05/11/2016 - 25mg Tablets 05/11/2016 Xifaxan Twice Daily 60tabs Unknown 05/11/2016 - 550mg Tablets 05/11/2016 Inderal Every Day 30tabs Unknown 05/11/2016 - 10mg Tablets 05/11/2016 Dilantin Infatabs Bedtime 120units Unknown 05/11/2016 - 200mg 01/05/2017 Chewtabs Dilantin Every Day 30caps Unknown 05/11/2016 - 100mg Capsules 05/11/2016 Prilosec Daily@0600 30caps Unknown 05/11/2016 - 20mg Capsules 05/11/2016 Lactulose Three Times Daily 90units Unknown 05/11/2016 - 10GM/15ML 09/20/2016 Solution Lantus F95V-05 units 600units Unknown 05/11/2016 - 100Unit/ML 08/29/2016 Solution Lasix 0800,1700 60tabs Unknown 05/11/2016 - 40mg Tablets 07/12/2016 Voltaren Every 6 Hours prn 5units Unknown 05/11/2016 - 1% Gel For Pain 08/29/2016 Tylenol Q6H prn For 0tabs Unknown 05/11/2016 - 650mg Tablets Fever/Headache 01/05/2017 Buspirone HCL 1 tab by mouth Unknown - 5mg Tablets twice a day as 04/01/2019 needed Duloxetine HCL Unknown - 20mg Caps 04/01/2019 DR [place] Escitalopram Oxalate 1 by mouth every Unknown - 10mg day 01/27/2019 Tablets Omeprazole 1 by mouth every Unknown - 20mg Capsules day 04/01/2019 Propranolol HCL 1 by mouth every Unknown - 10mg day 01/27/2019 Tablets Spironolactone 1 by mouth every Unknown - 50mg day 03/12/2017 Tablets Aspirin daily Unknown - 81mg Tablets 01/05/2017 Thiamine HCL Unknown - 01/05/2017 Magnesium Oxide Unknown - 01/05/2017 Folic Acid Unknown - 01/05/2017 Artificial Tears Unknown - 01/05/2017 Immunizations CPT Code Status Date Vaccine Lot # [id number] Given 06/14/2017 Influenza Virus Vaccine, Quadrivalent, Split, Preservative Free [id number] Given 07/06/2013 DTaP Vaccine Younger Than 7 Vital Signs Date Vital Result Comment 04/01/2019 9:55am Height 69 inches 5'9" Weight 206.00 lb BP Systolic 142 mmHg BP Diastolic 75 mmHg Heart Rate 124 /min BMI (Body Mass Index) 30.4 kg/m2 01/28/2019 11:32am Height 69 inches 5'9" Weight 226.00 lb BP Systolic 148 mmHg BP Diastolic 67 mmHg Heart Rate 95 /min BMI (Body Mass Index) 33.4 kg/m2 07/02/2018 10:10am Height 69 inches 5'9" Weight 209.00 lb BP Systolic 137 mmHg BP Diastolic 74 mmHg Heart Rate 84 /min BMI (Body Mass Index) 30.9 kg/m2 04/05/2017 3:39pm Height 69 inches 5'9" Weight 204.00 lb BMI (Body Mass Index) 30.1 kg/m2 03/06/2017 9:18am Height 69 inches 5'9" Weight 213.00 lb BP Systolic 118 mmHg O2 98 BP Diastolic 63 mmHg O2 98 Heart Rate 64 /min BMI (Body Mass Index) 31.5 kg/m2 01/05/2017 2:58pm Height 69 inches 5'9" Weight 215.00 lb BMI (Body Mass Index) 31.7 kg/m2 10/10/2016 8:41am Height 69 inches 5'9" Weight 242.00 lb BP Systolic 169 mmHg BP Diastolic 82 mmHg Heart Rate 82 /min BMI (Body Mass Index) 35.7 kg/m2 08/29/2016 8:54am Height 69 inches 5'9" Weight 236.00 lb BP Systolic 163 mmHg BP Diastolic 77 mmHg Heart Rate 67 /min BMI (Body Mass Index) 34.8 kg/m2 07/04/2016 9:08am Height 69 inches 5'9" Weight 225.00 lb BP Systolic 135 mmHg BP Diastolic 80 mmHg Heart Rate 63 /min BMI (Body Mass Index) 33.2 kg/m2 06/06/2016 2:40pm Height 69 inches 5'9" Weight 225.00 lb BP Systolic 126 mmHg BP Diastolic 66 mmHg Heart Rate 78 /min BMI (Body Mass Index) 33.2 kg/m2 Results Test Date Facility Test Result H/L Range Note Comp Metabolic Panel 03/05/2019 [facility] Sodium 135 mmol/L N 135-145 1 Potassium 4.1 mmol/L N 3.5-5.0 Chloride 103 mmol/L N 101-111 Co2 Carbon Dioxide 25 mmol/L N 22-32 Anion Gap 7 mmol/L N 2-11 Glucose 95 mg/dL N 70-100 Blood Urea Nitrogen 5 mg/dL Low 6-24 Creatinine 0.83 mg/dL N 0.67-1.17 BUN/Creatinine Ratio 6.0 Low 8-20 Calcium 8.4 mg/dL Low 8.6-10.3 Total Protein 6.0 g/dL Low 6.4-8.9 Albumin 2.7 g/dL Low 3.2-5.2 Globulin 3.3 g/dL N 2-4 Albumin/Globulin Ratio 0.8 Low 1-3 Total Bilirubin 3.90 mg/dL High 0.2-1.0 Alkaline Phosphatase 171 U/L High 34-104 Alt 16 U/L N 7-52 Ast 21 U/L N 13-39 Egfr Non- 94.2 >60 Egfr 114.0 >60 2 Iron & Iron Binding Capacity 03/05/2019 [facility] Iron 53 g/dL N 50-212 Unsaturated Iron Binding < 328 g/dL Total Iron Binding Capacity 343 g/dL N 250-450 Transferrin 245 mg/dL N 203-362 % Iron Saturation 15 % N 15-55 Inr/Protime 03/05/2019 [facility] Inr 1.64 High 0.82-1.09 3 Laboratory test 03/05/2019 [facility] Ferritin 16.8 ng/mL Low 24-336 4 finding Laboratory Studies 06/30/2017 N2N/CCD Import Absolute 0 10^3/ul 0-0.2 Basophils (auto) Absolute Eosinophils (auto) 0.4 10^3/ul 0-0.6 Absolute Lymphocytes (auto) 1.4 10^3/ul 1.0-4.8 Absolute Monocytes (auto) 0.6 10^3/ul 0-0.8 Absolute Neutrophils (auto) 1.7 10^3/ul 1.5-7.7 Anion Gap 2 mmol/L 2-11 BUN/Creatinine Ratio 11.2 8-20 Basophils (%) (Auto) 0.9 % 0-2 Blood Urea Nitrogen 10 mg/dL 6-24 Calcium Level 8.1 mg/dL Low 8.6-10.3 Carbon Dioxide Level 29 mmol/L 22-32 Chloride Level 104 mmol/L 101-111 Creatinine 0.89 mg/dL 0.67-1.17 Eosinophils (%) (Auto) 9.7 % High 0-6 Estimated GFR () 112.1 Estimated GFR (Non- 87.2 Glucose Level 100 mg/dL 70-100 Hematocrit 26 % Low 42-52 Hemoglobin 8.4 g/dL Low 14.0-18.0 International Ratio (Anticoag Ther) 1.27 High 0.89-1.11 Lymphocytes (%) (Auto) 33.6 % 25-47 Mean Corpuscular Hemoglobin 32 pg High 27-31 Mean Corpuscular Hemoglobin Concent 33 g/dL 31-36 Mean Corpuscular Volume 98 fL High 80-94 Mean Platelet Volume 7 um3 Low 7.4-10.4 Monocytes (%) (Auto) 15.1 % High 1-9 Neutrophils (%) (Auto) 40.7 % 38-83 Nucleated RBC Absolute Count (auto) 0.01 10^3/ul Nucleated Red Blood Cells % 0.1 Platelet Count 112 10^3/ul Low 150-450 Potassium Level 4.4 mmol/L 3.5-5.0 Red Blood Count 2.60 10^6/ul Low 4.0-5.4 Red Cell Distribution Width 23 % High 10.5-15 Sodium Level 135 mmol/L 133-145 White Blood Count 4.3 10^3/ul 3.5-10.8 Laboratory Studies 06/29/2017 N2N/CCD Import Poc Glucose 138 mg/dL High 70-100 (mg/dL) Laboratory Studies 06/29/2017 N2N/CCD Import Body Fluid 1 % Eosinophils Body Fluid Lymphocytes 55 % Body Fluid Monocytes 27 % Body Fluid Neutrophils 17 % Body Fluid Other Cells 145 Body Fluid RBC [id number] /mcL Body Fluid Total Cells Counted 100 Body Fluid Volume 6 mL Body Fluid WBC 291 /mcL [id number] Laboratory Studies 06/29/2017 N2N/CCD Import Alanine Aminotransferase 16 U/ L 7-52 (Alt/SGPT) Albumin 2.2 g/dL Low 3.2-5.2 Albumin/Globulin Ratio 0.7 Low 1-3 Alkaline Phosphatase 167 U/L High 34-104 Aspartate Amino Transf (Ast/Sgot) 49 U/L High 13-39 Globulin 3.3 g/dL 2-4 Total Bilirubin 2.30 mg/dL High 0.2-1.0 Total Protein 5.5 g/dL Low 6.4-8.9 Laboratory 06/28/2017 N2N/CCD Import Direct 1.30 mg/dL High 0.03-0.18 Studies Bilirubin Indirect Bilirubin 1.3 mg/dL High 0.3-1.0 Laboratory 06/27/2017 N2N/CCD Import Lactic Acid 1.5 mmol/L 0.5-2.0 Studies Level Laboratory 06/27/2017 N2N/CCD Import Urine Specific 1.035 High 1.010- 1.030 Studies [place] Urine pH 5 5-9 Laboratory 06/26/2017 N2N/CCD Import Activated Partial 33.8 seconds 26.0 -36.3 Studies Thromboplast Time Ammonia 42 mol/L 16-53 Amylase Level 24 U/L Low 29-103 B-Type Natriuretic Peptide 176 pg/mL High C-Reactive Protein 17.41 mg/L High 0-5.00 Lipase 112 U/L High 11.0-82.0 Magnesium Level 1.8 mg/dL Low 1.9-2.7 Phenytoin (Dilantin) Level 18.6 g/mL 10-20 Total Creatine Kinase 145 U/L 10-223 Troponin I 0.01 ng/mL Laboratory Studies 06/15/2017 N2N/CCD Import Alanine Aminotransferase 12 U/ L 7-52 (Alt/SGPT) Albumin 2.4 g/dL Low 3.2-5.2 Albumin/Globulin Ratio 0.7 Low 1-3 Alkaline Phosphatase 204 U/L High 34-104 Anion Gap 3 mmol/L 2-11 Aspartate Amino Transf (Ast/Sgot) 30 U/L 13-39 BUN/Creatinine Ratio 6.9 Low 8-20 Blood Urea Nitrogen 4 mg/dL Low 6-24 Calcium Level 8.2 mg/dL Low 8.6-10.3 Carbon Dioxide Level 26 mmol/L 22-32 Chloride Level 107 mmol/L 101-111 Creatinine 0.58 mg/dL Low 0.67-1.17 Estimated GFR () 183.8 Estimated GFR (Non- 142.9 Globulin 3.4 g/dL 2-4 Glucose Level 104 mg/dL High 70-100 Hematocrit 23 % Low 42-52 Hemoglobin 7.4 g/dL Low 14.0-18.0 Magnesium Level 1.6 mg/dL Low 1.9-2.7 Mean Corpuscular Hemoglobin 32 pg High 27-31 Mean Corpuscular Hemoglobin Concent 32 g/dL 31-36 Mean Corpuscular Volume 99 fL High 80-94 Mean Platelet Volume 7 um3 Low 7.4-10.4 Platelet Count 111 10^3/ul Low 150-450 Potassium Level 3.7 mmol/L 3.5-5.0 Red Blood Count 2.32 10^6/ul Low 4.0-5.4 Red Cell Distribution Width 24 % High 10.5-15 Sodium Level 136 mmol/L 133-145 Total Bilirubin 2.60 mg/dL High 0.2-1.0 Total Protein 5.8 g/dL Low 6.4-8.9 White Blood Count 4.1 10^3/ul 3.5-10.8 Laboratory 06/14/2017 N2N/[place] Import Lactic Acid 3.3 mmol/L High 0.5-2.0 Studies Level Laboratory 06/14/2017 N2N/[place] Import Direct 0.70 mg/dL High 0.03-0.18 Studies Bilirubin Indirect Bilirubin 1.2 mg/dL High 0.3-1.0 Phenytoin (Dilantin) Level 15.8 g/mL 10-20 Laboratory Studies 06/14/2017 N2N/[place] Import Absolute Basophils 0.1 10^3/ ul 0-0.2 (auto) Absolute Eosinophils (auto) 0.2 10^3/ul 0-0.6 Absolute Lymphocytes (auto) 1.1 10^3/ul 1.0-4.8 Absolute Monocytes (auto) 0.6 10^3/ul 0-0.8 Absolute Neutrophils (auto) 2.5 10^3/ul 1.5-7.7 Basophils (%) (Auto) 1.6 % 0-2 Eosinophils (%) (Auto) 3.9 % 0-6 Lymphocytes (%) (Auto) 24.3 % Low 25-47 Monocytes (%) (Auto) 14.2 % High 1-9 Neutrophils (%) (Auto) 56.0 % 38-83 Nucleated RBC Absolute Count (auto) 0.01 10^3/ul Nucleated Red Blood Cells % 0.1 Laboratory Studies 06/13/2017 N2N/[place] Import Urine Specific 1.053 High 1.010-1.030 [place] Urine pH 5.0 5-9 Laboratory Studies 06/13/2017 N2N/[place] Import Ammonia 35 mol/L 16-53 Amylase Level 22 U/L Low 29-103 B-Type Natriuretic Peptide 288 pg/mL High C-Reactive Protein 34.95 mg/L High 0-5.00 Hemoglobin A1c 4.9 % 0-5.9 International Ratio (Anticoag Ther) 1.15 High 0.89-1.11 Lipase 92 U/L High 11.0-82.0 Serum Alcohol 145 mg/dL High 0-10 Laboratory test finding 05/29/2017 [facility] Inr/Protime 1.43 High 0.89-1.11 Partial Thrombo Time PTT 32.3 seconds N 26.0-36.3 Platelet Count 05/29/2017 [facility] Platelet Count 143 10^3/uL Low 150-450 Mean Platelet Volume 7 um3 Low 7.4-10.4 CBC W/Auto 03/14/2017 [facility] White 7.0 3/UL 4.8- 10.8 Differential(!) [facility] [place] [address] Count Ser [phone] Auto CNT RBC Red Blood Count 2.93 X106/UL Low 4.20-6.20 Hemoglobin Blood 9.0 g/dL Low 12.0-18.0 Hematocrit 30.4 % Low 35-52 MCV (Corpuscular Volume) 108.1 FL High 79-97 MCH (Corpuscular Hemoglobin) 30.6 pg 27-31 MCHC (Corpuscular Hemog Conc) 27.9 g/dL Low 32.0-36.0 RDW 20.8 % High 10.5-15.0 Platelet Count Blood Auto CNT 220 X103/UL 150-450 MPV 6.4 FL Low 7.4-10.4 Lymph% 34.8 % 20.0-45.0 [place]% 12.2 % High 1.0-9.0 Neutrophil % 53.0 % 38.0-83.0 Absolute Lymphocytes 2.4 X103/UL 1.0-4.8 Absolute Monocytes 0.9 X103/UL High 0.0-0.8 Absolute Neutrophils 3.7 X103/UL 1.5-7.7 CMP(!) 03/14/2017 [facility] Sodium(!) 134 mEq/L 134- [address] [place] [address] [phone] Potassium(!) 4.3 mEq/L 3.6-5.5 Chloride Serum/Plasma(!) 99 mEq/L 94-112 Carbon Dioxide Ser/Plasm(!) 25 mEq/L 21-33 BUN - Urea Nitrogen(!) 8 mg/dL 6-24 Calcium Ser/Plasma Mass/Vol(!) 8.6 mg/dL 8.6-10.2 Creatinine Serum Mass/Vol(!) 1.0 mg/dL 0.5-1.4 Glucose Serum(!) 165 mg/dL High 70-105 Uric Acid Ser/Plas Mass/Vol(!) 6.3 mg/dL 2.6-7.2 BUN/Creatinine Ratio(!) 8 RATIO 8.0-36 Albumin Serum/Plasma(!) 3.2 g/dL Low 3.5-5.2 Alkaline Phosphatase(!) 282 U/L High 39-117 Bilirubin Total Mass/Vol 2.5 mg/dL High 0.2-1.3 Ast - Sgot 48 U/L High 5-34 Alt - SGPT 19 U/L 10-40 Protein Total 6.1 g/dL Low 6.2-8.1 Laboratory test 03/14/2017 [facility] Inr(!) 1.[address] [place] [id number] [phone] Platelet Count 02/26/2017 [facility] Platelet Count 119 Low 150-45 10^3/uL 0 Mean Platelet Volume 9 um3 N 7.4-10.4 Inr/Protime 02/26/2017 [facility] Inr 1.26 High 0.89-1.11 Laboratory test 02/26/2017 [facility] Partial Thrombo 25.3 seconds Low 26.0- 36.3 finding Time PTT Platelet Count 12/22/2016 [facility] Platelet Count 142 10^3/uL Low 150-450 Mean Platelet Volume 7 um3 Low 7.4-10.4 Inr/Protime 12/22/2016 [facility] Inr 1.30 High 0.89-1.11 CBC W/Auto 12/21/2016 [facility] White Blood <pending> Differential(!) Count Ser Auto CNT RBC Red Blood Count <pending> Hemoglobin Blood <pending> Hematocrit <pending> MCV (Corpuscular Volume) <pending> MCH (Corpuscular Hemoglobin) <pending> MCHC (Corpuscular Hemog Conc) <pending> RDW <pending> Platelet Count Blood Auto CNT <pending> MPV <pending> Lymph% <pending> [place]% <pending> Neutrophil % <pending> Absolute Lymphocytes <pending> Absolute Monocytes <pending> Absolute Neutrophils <pending> CMP(!) 12/21/2016 [facility] Sodium(!) <pending> Potassium(!) <pending> Chloride Serum/Plasma(!) <pending> Carbon Dioxide Ser/Plasm(!) <pending> BUN - Urea Nitrogen(!) <pending> Calcium Ser/Plasma Mass/Vol(!) <pending> Creatinine Serum Mass/Vol(!) <pending> Glucose Serum(!) <pending> Uric Acid Ser/Plas Mass/Vol(!) <pending> BUN/Creatinine Ratio(!) <pending> Albumin Serum/Plasma(!) <pending> Alkaline Phosphatase(!) <pending> Bilirubin Total Mass/Vol(!) <pending> Ast - Sgot <pending> Alt - SGPT <pending> Protein Total <pending> Laboratory test finding 12/21/2016 [facility] Troponin I <pending> Lactic Acid Ser/Plas Mol/Vol <pending> Platelet Count 12/15/2016 [facility] Platelet Count 139 10^3/uL Low 150-450 Mean Platelet Volume 8 um3 N 7.4-10.4 Laboratory test finding 12/15/2016 [facility] Inr/Protime 1.25 High 0.89-1.11 Partial Thrombo Time PTT 33.2 seconds N 26.0-36.3 Platelet Count 11/17/2016 [facility] Platelet Count 141 10^3/uL Low 150-450 5 Mean Platelet Volume 7 um3 Low 7.4-10.4 Inr/Protime 11/17/2016 [facility] Inr 1.29 High 0.89-1.11 Laboratory test 11/17/2016 [facility] Partial Thrombo 31.6 seconds N 26.0-36.3 6 finding Time PTT Laboratory 10/17/2016 N2N/CCD Import Hematocrit 27 % Low 42-52 Studies Hemoglobin 8.7 g/dL Low 14.0-18.0 Laboratory test 10/17/2016 [facility] Occult Blood #1 <pending> finding Stool Laboratory Studies 10/17/2016 N2N/CCD Import Absolute 0.1 10^3/ul 0-0.2 Basophils (auto) Absolute Eosinophils (auto) 1.0 10^3/ul High 0-0.6 Absolute Lymphocytes (auto) 2.0 10^3/ul 1.0-4.8 Absolute Monocytes (auto) 0.8 10^3/ul 0-0.8 Absolute Neutrophils (auto) 2.8 10^3/ul 1.5-7.7 Alanine Aminotransferase (Alt/SGPT) 18 U/L 7-52 Albumin 2.1 g/dL Low 3.2-5.2 Albumin/Globulin Ratio 0.7 Low 1-3 Alkaline Phosphatase 132 U/L High 34-104 Ammonia 127 mol/L High 16-53 Anion Gap 6 mmol/L 2-11 Aspartate Amino Transf (Ast/Sgot) 38 U/L 13-39 BUN/Creatinine Ratio 15.0 8-20 Basophils (%) (Auto) 1.1 % 0-2 Blood Urea Nitrogen 18 mg/dL 6-24 Calcium Level 8.0 mg/dL Low 8.6-10.3 Carbon Dioxide Level 25 mmol/L 22-32 Chloride Level 101 mmol/L 101-111 Creatinine 1.20 mg/dL High 0.67-1.17 Eosinophils (%) (Auto) 15.7 % High 0-6 Estimated GFR () 79.7 Estimated GFR (Non- 62.0 Globulin 3.1 g/dL 2-4 Glucose Level 116 mg/dL High 70-100 Lymphocytes (%) (Auto) 29.9 % 25-47 Mean Corpuscular Hemoglobin 34 pg High 27-31 Mean Corpuscular Hemoglobin Concent 33 g/dL 31-36 Mean Corpuscular Volume 103 fL High 80-94 Mean Platelet Volume 8 um3 7.4-10.4 Monocytes (%) (Auto) 11.7 % High 1-9 Neutrophils (%) (Auto) 41.6 % 38-83 Nucleated RBC Absolute Count (auto) 0.01 10^3/ul Nucleated Red Blood Cells % 0.1 Platelet Count 104 10^3/ul Low 150-450 Potassium Level 4.3 mmol/L 3.5-5.0 Red Blood Count 2.33 10^6/ul Low 4.0-5.4 Red Cell Distribution Width 19 % High 10.5-15 Sodium Level 132 mmol/L Low 133-145 Total Bilirubin 3.10 mg/dL High 0.2-1.0 Total Protein 5.2 g/dL Low 6.4-8.9 White Blood Count 6.7 10^3/ul 3.5-10.8 Xray 10/16/2016 [facility] US Paracentesis <pending> Subsequent Laboratory 10/16/2016 N2N/CCD Import Procalcitonin 0.2 ng/mL Studies Xray 10/15/2016 [facility] Chest PA And Lat 2 <pending> VWS Laboratory 10/15/2016 N2N/CCD Import Lactic Acid Level 1.7 mmol/L 0.5- 2.0 Studies Laboratory 10/15/2016 N2N/CCD Import Urine Specific 1.016 1.010-1 Studies [place] .030 Urine pH 5.0 5-9 Laboratory 10/15/2016 N2N/CCD Import Activated Partial 28.9 seconds 26.0 -36.3 Studies Thromboplast Time B-Type Natriuretic Peptide 345 pg/mL High C-Reactive Protein 41.90 mg/L High 0-5.00 Creatine Kinase MB 11.1 ng/mL High 0.6-6.3 International Ratio (Anticoag Ther) 1.13 High 0.89-1.11 Phenytoin (Dilantin) Level 13.7 g/mL 10-20 Total Creatine Kinase 256 U/L High 10-223 Troponin I 0.01 ng/mL Platelet Count 09/28/2016 [facility] Platelet Count 144 10^3/uL Low 150-450 Mean Platelet Volume 8 um3 N 7.4-10.4 Laboratory test finding 09/28/2016 [facility] Inr/Protime 1.29 High 0.89-1.11 Partial Thrombo Time PTT 30.9 seconds N 26.0-36.3 Laboratory Studies 05/12/2016 N2N/CCD Import Absolute Basophils 0.1 10^3/ ul 0-0.2 (auto) Absolute Eosinophils (auto) 0.3 10^3/ul 0-0.6 Absolute Lymphocytes (auto) 1.7 10^3/ul 1.0-4.8 Absolute Monocytes (auto) 0.8 10^3/ul 0-0.8 Absolute Neutrophils (auto) 2.1 10^3/ul 1.5-7.7 Alanine Aminotransferase (Alt/SGPT) 19 U/L 7-52 Albumin 2.2 g/dL Low 3.2-5.2 Albumin/Globulin Ratio 0.6 Low 1-3 Alkaline Phosphatase 115 U/L High 34-104 Ammonia 50 mol/L 16-53 Anion Gap 5 mmol/L 2-11 Aspartate Amino Transf (Ast/Sgot) 47 U/L High 13-39 BUN/Creatinine Ratio 7.1 Low 8-20 Basophils (%) (Auto) 1.4 % 0-2 Blood Urea Nitrogen 4 mg/dL Low 6-24 Calcium Level 8.2 mg/dL Low 8.6-10.3 Carbon Dioxide Level 29 mmol/L 22-32 Chloride Level 104 mmol/L 101-111 Creatinine 0.56 mg/dL Low 0.67-1.17 Eosinophils (%) (Auto) 7.0 % High 0-6 Estimated GFR () 192.7 Estimated GFR (Non- 149.9 Globulin 3.5 g/dL 2-4 Glucose Level 73 mg/dL 70-100 Hematocrit 35 % Low 42-52 Hemoglobin 11.9 g/dL Low 14.0-18.0 Lymphocytes (%) (Auto) 34.2 % 25-47 Mean Corpuscular Hemoglobin 38 pg High 27-31 Mean Corpuscular Hemoglobin Concent 34 g/dL 31-36 Mean Corpuscular Volume 112 fL High 80-94 Mean Platelet Volume 8 um3 7.4-10.4 Monocytes (%) (Auto) 15.1 % High 1-9 Neutrophils (%) (Auto) 42.3 % 38-83 Nucleated RBC Absolute Count (auto) 0 10^3/ul Nucleated Red Blood Cells % 0 Platelet Count 155 10^3/ul 150-450 Potassium Level 3.7 mmol/L 3.5-5.0 Red Blood Count 3.17 10^6/ul Low 4.0-5.4 Red Cell Distribution Width 15 % 10.5-15 Sodium Level 138 mmol/L 133-145 Total Bilirubin 2.80 mg/dL High 0.2-1.0 Total Protein 5.7 g/dL Low 6.4-8.9 White Blood Count 5.0 10^3/ul 3.5-10.8 Laboratory 05/12/2016 N2N/CCD Import Poc Glucose 171 mg/dL High 74-106 Studies (mg/dL) Laboratory 05/03/2016 N2N/CCD Import Magnesium Level 1.9 mg/dL 1.9-2.7 Studies Laboratory 04/28/2016 N2N/CCD Import Direct 1.70 mg/dL High 0.03-0.18 Studies Bilirubin Indirect Bilirubin 1.7 mg/dL High 0.3-1.0 Laboratory 04/27/2016 N2N/CCD Import International Ratio 1.22 High 0.89- 1.11 Studies (Anticoag Ther) Phenytoin (Dilantin) Level 9.9 g/mL Low 10-20 Laboratory Studies 04/26/2016 N2N/CCD Import Ionized 4.55 mg/dL Low 4.65- 5.28 Calcium Phosphorus Level 2.6 mg/dL 2.5-5.0 Laboratory Studies 04/21/2016 N2N/CCD Import Hemoglobin A1c 5.0 % 0-6.0 Laboratory Studies 04/19/2016 N2N/CCD Import Urine Specific 1.026 1.010- 1.030 [place] Urine pH 5.0 5-9 Laboratory 04/18/2016 N2N/CCD Import Activated Partial 32.4 seconds 26.0 -36.3 Studies Thromboplast Time Cholesterol Level 142 mg/dL HDL Cholesterol 20.2 mg/dL LDL Cholesterol 91 mg/dL Lactic Acid Level 2.1 mmol/L High 0.5-2.0 Serum Alcohol 187 mg/dL High 0-10 Triglycerides Level 156 mg/dL Troponin I 0.01 ng/mL Xray 11/02/2014 [facility] [place] [facility] [place] Abd/Pel W <pending> Xray 11/02/2014 [facility] [place] [facility] [place] Paracentesis Initial <pending> Xray 11/01/2014 [facility] [place] Abdomen Complete <pending> 1 [facility] [address], Room Number 352P [id number] 2 Because ethnic data is not always readily available, this report includes an eGFR for both -Americans and non- Americans. The National Kidney Disease Education Program (NKDEP) does not endorse the use of the MDRD equation for patients that are not between the ages of 18 and 70, are , have extremes of body size, muscle mass, or nutritional status, or are non- or non-. According to the National Kidney Foundation, irrespective of diagnosis, the stage of the disease is based on the level of kidney function: Stage Description GFR(mL/min/1.73 m(2)) 1 Kidney damage with normal or decreased GFR 90 2 Kidney damage with mild decrease in GFR 60-89 3 Moderate decrease in GFR 30-59 4 Severe decrease in GFR 15-29 5 Kidney failure <15 (or dialysis) 3 Standard intensity warfarin therapeutic range: 2.0-3.0 High intensity warfarin therapeutic range: 2.5-3.5 4 [facility] [address], Room Number 352P [id number] Procedures Date Code Description Status 03/12/2019 44188 Moderate Sedation Services; Same Phys Intl 15 Mins; PT >=5 Completed Years 03/12/2019 70512 EGD- Upper Endoscopy Completed 10/11/2016 62808 EGD- Upper Endoscopy Completed 04/08/2015 62035 EGD+Biopsy Single Or Multiple Completed 04/30/2009 03449 Colonoscopy Completed Encounters Type Date Location Provider Dx Diagnosis Office Visit 01/28/2019 Gastroenterology Anyi [id number] Alcoholic 11:30a [facility] MD cirrhosis of liver with ascites K72.90 Hepatic failure, unspecified without coma K72.91 Hepatic failure, unspecified with coma D64.9 Anemia, unspecified D50.9 Iron deficiency anemia, unspecified Office 07/02/2018 Gastroenterjacques De Santiago K70.31 Alcoholic Visit 10:00a [facility] MD cirrhosis of liver with ascites Z71.41 Alcohol abuse counseling and surveillance of alcoholic F10.20 Alcohol dependence, uncomplicated Z12.11 Encounter for screening for malignant neoplasm of colon I85.00 Esophageal varices without bleeding Office Visit 04/05/2017 Gastroenterjacques [id number] Alcoholic 3:15p [facility] MD cirrhosis of liver with ascites Office Visit 03/06/2017 Gastroenterjacques [id number] Alcoholic 9:00a [facility] MD cirrhosis of liver with ascites F10.20 Alcohol dependence, uncomplicated Office Visit 01/05/2017 Jose Francisco [id number] Alcoholic 3:00p [facility] cirrhosis of liver with ascites F10.20 Alcohol dependence, uncomplicated Office Visit 10/10/2016 Jose Francisco [id number] Alcoholic 8:45a [facility] MD cirrhosis of liver with ascites F10.99 Alcohol use, unsp with unspecified alcohol-induced disorder Office Visit 08/29/2016 Gastroenterology Renny Laguna K70.31 Alcoholic 8:45a [facility] Justo ME[facility] cirrhosis of liver with ascites F10.20 Alcohol dependence, uncomplicated Office Visit 07/04/2016 Gastroenterology Suellen [id number] Alcoholic 9:00a [facility], cirrhosis of [employer]-C liver with ascites F10.21 Alcohol dependence, in remission Office Visit 06/06/2016 Gastroenterology Michael Caballero K70.9 Alcoholic liver 2:15p [facility] M.[facility] disease, unspecified F10.21 Alcohol dependence, in remission Plan of Treatment Future Appointment(s):06/02/2019 2:30 pm - Anyi Hoffman MD at [facility]04/01/2019 - Anyi Hoffman [id number] Alcoholic cirrhosis of liver with ascitesNew Labs:CBC W/Auto Differential(!), Ordered: 04/01/19CMP(!), Ordered: 04/01/19Inr(!), Ordered: 04/01/19Vitamin D 25 Hydroxy, D2&D3, Ordered: 04/01/19Reticulocyte Index, Ordered: I85.00 Esophageal varices without gtoxmubaI07.2 Nausea with vomiting, unspecifiedNew Labs:CBC W/Auto Differential(!), Ordered: 04/01/19CMP(!), Ordered : 04/01/19Inr(!), Ordered: 04/01/19Vitamin D 25 Hydroxy, D2&D3, Ordered: Reticulocyte Index, Ordered: 04/01/19D64.9 Anemia, unspecified
[2019-04-03] MEDS ORDERED: Ibuprofen TAB* 800 MG PO ONE (03:47)
--- NOTE | 2019-04-03 03:47 | ED ---
Lower Extremity - HPI Summary HPI Summary: A 63 y/o male brought in by [facility] ambulance presents to [facility] with a chief complaint of left knee pain since 18:00 04/02/19 when he he fell and hit his left knee on some ying. He says that he fell because he accidentally touched hot soup. He has an obvious area of ecchymosis surrounding his left knee with swelling. At triage he rated his pain as a 10/10 in severity. He says that he sees Dr. Barrientos, orthopedist, who has had the patient's same left knee "cleaned out 3 times". He says that he last saw Dr. Barrientos around 1 year ago. - History of Current Complaint Chief Complaint: EDExtremityLower Stated Complaint: LEFT KNEE PAIN PER EMS Time Seen by Provider: 04/03/19 03:08 Hx Obtained From: Patient Mechanism Of Injury: Direct Blow Onset of Pain: Hours, Prior to Arrival Onset/Duration: Hours Severity Initially: Moderate Severity Currently: Moderate Pain Intensity: 5 Pain Scale Used: 0-10 Numeric Timing: Constant Location: Is Discrete @ - left knee Associated Signs And Symptoms: Positive: Swelling, Bruising. Negative: Fever Aggravating Factor(s): Nothing Alleviating Factor(s): Nothing - Allergies/Home Medications Allergies/Adverse Reactions: Allergies Allergy/AdvReac Type Severity Reaction Status Date / Time bee pollen Allergy Hives Verified 04/03/19 02:24 bee venom protein (honey bee) Allergy Hives Verified 04/03/19 02:24 hydroxyzine [From Atarax] Allergy See Comment Verified 04/03/19 02:24 lorazepam [From Ativan] Allergy See Comment Verified 04/03/19 02:24 sertraline Allergy Rash And Verified 04/03/19 02:24 Itching PMH/Surg Hx/FS Hx/Imm Hx Endocrine/Hematology History: Reports: Hx Diabetes - elevated glucose after acute liver failure - diet controlled Denies: Hx Anticoagulant Therapy, Hx Thyroid Disease, Hx Anemia, Hx Unexplained Bleeding Cardiovascular History: Reports: Hx Hypercholesterolemia, Hx Hypertension Denies: Hx Aneurysm, Hx Angina, Hx Angioplasty, Hx Auto Implanted Cardiovert Defib, Hx Cardiac Arrest, Hx Cardiomegaly, Hx Congenital Heart Disease, Hx Congestive Heart Failure, Hx Coronary Artery Disease, Hx Deep Vein Thrombosis, Hx Embolism, Hx Hypotension, Hx Pacemaker/ICD, Hx Peripheral Vascular Disease, Hx Rheumatic Fever, Hx Syncope, Hx Valvular Heart Disease, Other Cardiovascular Problems/Disorders Respiratory History: Reports: Hx Asthma, Hx Chronic Bronchitis, Hx Seasonal Allergies - hay fever Denies: Hx Chronic Obstructive Pulmonary Disease (COPD), Hx Cystic Fibrosis, Hx Lung Cancer, Hx Pleural Effusion, Hx Pneumonia, Hx Pulmonary Edema, Hx Pulmonary Embolism, Hx Sleep Apnea, Other Respiratory Problems/Disorders GI History: Reports: Hx Cirrhosis, Hx Gall Bladder Disease, Hx Hiatal Hernia, Hx Ulcer Denies: Hx Crohn's Disease, Hx Diverticulosis, Hx Gastroesophageal Reflux Disease, Hx Gastrointestinal Bleed, Hx Irritable Bowel, Hx Jaundice, Hx Obstructive Bowel, Hx Ileostomy, Hx Pyloric Stenosis, Other GI Disorders History: Denies: Hx Dialysis, Hx Renal Disease Musculoskeletal History: Reports: Hx Arthritis - both knees, Hx Orthopedic Injury Denies: Hx Back Problems, Hx Bursitis, Hx Congenital Bone Abnormalities, Hx Fibromyalgia, Hx Gout, Hx Osteoporosis, Hx Scoliosis, Hx Tendonitis, Other Musculoskeletal History Sensory History: Reports: Hx Contacts or Glasses Denies: Hx Cataracts, Hx Eye Injury, Hx Eye Prosthesis, Hx Glaucoma, Hx Legally Blind, Hx Macular Degeneration, Hx Vision Problem, Hx Deafness, Hx Hearing Aid, Hx Hearing Problem, Other Sensory Impairments Opthamlomology History: Reports: Hx Contacts or Glasses Denies: Hx Cataracts, Hx Eye Injury, Hx Eye Prosthesis, Hx Glaucoma, Hx Legally Blind, Hx Macular Degeneration, Hx Vision Problem, Other Sensory Impairments Neurological History: Reports: Hx Headaches, Hx Seizures, Other Neuro Impairments/Disorders - Subdural Hematoma Denies: Hx Dementia Psychiatric History: Reports: Hx Depression, Hx Substance Abuse - ETOH Denies: Hx Anxiety, Hx Attention Deficit Hyperactivity Disorder, Hx Eating Disorder, Hx Panic Disorder, Hx Post Traumatic Stress Disorder, Hx Inpatient Treatment, Hx Community Mental Health Tx, Hx Schizophrenia, Hx Bipolar Disorder , Hx Suicide Attempt, Hx of Violent Episodes Against Others, Other Psychiatric Issues/Disorders - Cancer History Cancer Type, Location and Year: None reported - Surgical History Surgery Procedure, Year, and Place: RIGHT ANKLE ORIF. LEFT KNEE TENDON REPAIR. CHOLECYSTECTOMY. APPENDECTOMY. TONSILLECTOMY Hx Anesthesia Reactions: No Infectious Disease History: No Infectious Disease History: Reports: Hx of Known/Suspected MRSA Denies: Hx Clostridium Difficile, Hx Hepatitis, Hx Human Immunodeficiency Virus (HIV), Hx Shingles, Hx Tuberculosis, History Other Infectious Disease, Traveled Outside the [place] in Last 30 Days - Family History Known Family History: Positive: Non-Contributory Negative: Cardiac Disease, Diabetes - Social History Alcohol Use: None Alcohol Amount: 07/30/18 - states no use. Hx Substance Use: Yes Substance Use Type: Reports: None Substance Use Comment - Amount & Last Used: pt states he hasn't had a drink in 2 weeks Hx Tobacco Use: Yes Smoking Status (MU): Light Every Day Tobacco Smoker Type: Cigarettes Length of Time of Smoking/Using Tobacco: 5 years Have You Smoked in the Last Year: No Review of Systems Negative: Fever Positive: Arthralgia - left knee pain All Other Systems Reviewed And Are Negative: Yes Physical Exam - Summary Physical Exam Summary: Constitutional: Well-developed, Well-nourished, Alert. (-) Distressed Skin: Warm, Dry HENT: Normocephalic; Atraumatic Eyes: Conjunctiva normal Neck: Musculoskeletal ROM normal neck. (-) JVD, (-) Stridor, (-) Tracheal deviation Cardio: Rhythm regular, rate normal, Heart sounds normal; Intact distal pulses; symmetric. Pulmonary/Chest wall: Effort normal. (-) Respiratory distress, (-) Wheezes, (-) Rales Abd: Soft, (-) tenderness, (-) Distension, (-) Guarding, (-) Rebound Musculoskeletal: small abrasion overlying knee, obvious area of ecchymosis surrounding entire knee joint, along patellar ligament he has the most pain, ecchhymosis around lateral aspect of lower leg, swelling around knee, flexion and extension intact but definitely more painful for ROM, has not been able to walk on it. Neuro: Alert, Oriented x3 Psych: Mood and affect Normal Triage Information Reviewed: Yes Vital Signs On Initial Exam: Initial Vitals Temp Pulse Resp BP Pulse Ox 99.6 F 110 18 141/63 96 04/02/19 22:40 04/02/19 22:40 04/02/19 22:40 04/02/19 22:40 04/02/19 22:40 Vital Signs Reviewed: Yes Diagnostics - Vital Signs Vital Signs Temp Pulse Resp BP Pulse Ox 04/03/19 01:09 98.9 F 119 16 122/77 96 04/02/19 22:40 99.6 F 110 18 141/63 96 - Laboratory Lab Statement: Any lab studies that have been ordered have been reviewed, and results considered in the medical decision making process. - Radiology knee x-ray Radiology Interpretation Completed By: ED Physician Summary of Radiographic Findings: Patellar is not high riding. I do not believe that there is a rupture of patellar tendon, significant amount of loss of space within join, severe arthritis, no suggestion of acute fracture. Pending official imaging report. Lower Extremity Course/Dx - Course Course Of Treatment: A 63 y/o male brought in by [facility] ambulance presents to [facility] with a chief complaint of left knee pain since 18:00 04/02/19 when he he fell and hit his left knee on some ying. The physical exam revealed small abrasion overlying knee, obvious area of ecchymosis surrounding entire knee joint, along patellar ligament he has the most pain, ecchhymosis around lateral aspect of lower leg, swelling around knee, flexion and extension intact but definitely more painful for ROM, has not been able to walk on it. CXR showed Patellar is not high riding. I do not believe that there is a rupture of patellar tendon, significant amount of loss of space within join, severe arthritis, no suggestion of acute fracture. In the ED course the patient was given Mortin PO. The patient will be discharged and follow up with his PCP. The patient is agreeable with this plan. - Diagnoses Provider Diagnoses: Contusion of left knee Discharge - Sign-Out/Discharge Documenting (check all that apply): Patient Departure - DC Patient Received Moderate/Deep Sedation with Procedure: No - Discharge Plan Condition: Good Disposition: HOME Prescriptions: Ibuprofen 800 mg PO TID 3 Days #12 tablet Patient Education Materials: Knee Pain (ED) Referrals: Rosie Noriega MD [Primary Care Provider] - - Billing Disposition and Condition Condition: GOOD Disposition: Home - Attestation Statements Document Initiated by Scribe: Yes Documenting Scribe: Peter Estes Provider For Whom Corey is Documenting (Include Credential): Kash Payton MD Scribe Attestation: Peter Garay scribed for Kash Payton MD on 04/03/19 at 0629. Scribe Documentation Reviewed: Yes Provider Attestation: The documentation as recorded by the shukriibPeter townsend accurately reflects the service I personally performed and the decisions made by me, Kash Payton MD Status of Scribe Document: Viewed
[2019-04-03 05:04] VITALS: BP 119/72
== END 2019-04-03 05:03 | disposition home or self-care (01) ==
LOC: ED 22:34
DX: S80.02XA Contusion of left knee, initial encounter (principal); W18.00XA Striking against unspecified object with subsequent fall, initial encounter; E11.9 Type 2 diabetes mellitus without complications; I10 Essential (primary) hypertension; F17.210 Nicotine dependence, cigarettes, uncomplicated
CPT/HCPCS: 99283; A9270-GY

== ENCOUNTER 2019-05-09 16:25 | Observation (INO) | payer MEDICARE ==
--- NOTE | 2019-05-09 16:52 | ED ---
Abdominal Pain/Male - HPI Summary HPI Summary: The patient is a 63 y/o M arriving by ambulance to [facility] with a chief complaint of abdominal distension and pain in the ribs worsening over the last five days. He reports that he has an umbilical hernia, and he has been having normal BMs. He additionally c/o SOB. He denies any fever, chills, diaphoresis, erythema of eyes, sore throat, CP, cough, N/V, dysuria, hematuria, myalgia, edema, rash, or dizziness. States similar episode of this occurring previously two years ago with 11L of fluids drained and liver improved since then but wants to get a liver transplant. Current pain is rated 1/10 in severity. On low dose water pills. PMHx of DM, HLD, HTN, asthma, chronic bronchitis, cirrhosis, hiatal hernia, stomach ulcer, ascites, CVA, cholecystectomy, appendectomy, MRSA. Light every day cigarette smoker, no EtOH, no substance use. - History of Current Complaint Chief Complaint: EDAbdPain Stated Complaint: ABD PAIN PER EMS Time Seen by Provider: 05/09/19 16:28 Hx Obtained From: Patient Onset/Duration: Gradual Onset, Lasting Days, Still Present Timing: Lasting Days Pain Intensity: 1 Pain Scale Used: 0-10 Numeric Location: Diffuse Radiates: No Character: Other: - distension, fullness Aggravating Factor(s): Nothing Alleviating Factor(s): Nothing Associated Signs And Symptoms: Positive: Other - POSITIVE: SOB; NEGATIVE: erythema of eyes, sore throat, CP, myalgia, edema, rash. Negative: Diaphoresis , Fever, Cough, Chest Pain, Dizzy, Urinary Symptoms - including hematuria or dysuria, Nausea, Vomiting - Allergies/Home Medications Allergies/Adverse Reactions: Allergies Allergy/AdvReac Type Severity Reaction Status Date / Time bee pollen Allergy Hives Verified 04/03/19 02:24 bee venom protein (honey bee) Allergy Hives Verified 04/03/19 02:24 hydroxyzine [From Atarax] Allergy See Comment Verified 04/03/19 02:24 lorazepam [From Ativan] Allergy See Comment Verified 04/03/19 02:24 sertraline Allergy Rash And Verified 04/03/19 02:24 Itching Home Medications: Home Medications Lactulose* 45 ml PO BID 05/09/19 [History Confirmed 05/09/19] Omeprazole 20 mg PO BID 05/09/19 [History Confirmed 05/09/19] Spironolactone TAB* [Aldactone TAB 25 MG*] 50 mg PO DAILY 05/09/19 [History Confirmed 05/09/19] diphenhydrAMINE HCl [Benadryl Itch Stopping 2% GEL] 2 % TOPICAL Q8HR PRN [History Confirmed 05/09/19] PMH/Surg Hx/FS Hx/Imm Hx Endocrine/Hematology History: Reports: Hx Diabetes - elevated glucose after acute liver failure - diet controlled Denies: Hx Anticoagulant Therapy, Hx Thyroid Disease, Hx Anemia, Hx Unexplained Bleeding Cardiovascular History: Reports: Hx Hypercholesterolemia, Hx Hypertension Denies: Hx Aneurysm, Hx Angina, Hx Angioplasty, Hx Auto Implanted Cardiovert Defib, Hx Cardiac Arrest, Hx Cardiomegaly, Hx Congenital Heart Disease, Hx Congestive Heart Failure, Hx Coronary Artery Disease, Hx Deep Vein Thrombosis, Hx Embolism, Hx Hypotension, Hx Pacemaker/ICD, Hx Peripheral Vascular Disease, Hx Rheumatic Fever, Hx Syncope, Hx Valvular Heart Disease, Other Cardiovascular Problems/Disorders Respiratory History: Reports: Hx Asthma, Hx Chronic Bronchitis, Hx Seasonal Allergies - hay fever Denies: Hx Chronic Obstructive Pulmonary Disease (COPD), Hx Cystic Fibrosis, Hx Lung Cancer, Hx Pleural Effusion, Hx Pneumonia, Hx Pulmonary Edema, Hx Pulmonary Embolism, Hx Sleep Apnea, Other Respiratory Problems/Disorders GI History: Reports: Hx Cirrhosis, Hx Gall Bladder Disease, Hx Hiatal Hernia, Hx Ulcer Denies: Hx Crohn's Disease, Hx Diverticulosis, Hx Gastroesophageal Reflux Disease, Hx Gastrointestinal Bleed, Hx Irritable Bowel, Hx Jaundice, Hx Obstructive Bowel, Hx Ileostomy, Hx Pyloric Stenosis, Other GI Disorders History: Denies: Hx Dialysis, Hx Renal Disease Musculoskeletal History: Reports: Hx Arthritis - both knees, Hx Orthopedic Injury Denies: Hx Back Problems, Hx Bursitis, Hx Congenital Bone Abnormalities, Hx Fibromyalgia, Hx Gout, Hx Osteoporosis, Hx Scoliosis, Hx Tendonitis, Other Musculoskeletal History Sensory History: Reports: Hx Contacts or Glasses Denies: Hx Cataracts, Hx Eye Injury, Hx Eye Prosthesis, Hx Glaucoma, Hx Legally Blind, Hx Macular Degeneration, Hx Vision Problem, Hx Deafness, Hx Hearing Aid, Hx Hearing Problem, Other Sensory Impairments Opthamlomology History: Reports: Hx Contacts or Glasses Denies: Hx Cataracts, Hx Eye Injury, Hx Eye Prosthesis, Hx Glaucoma, Hx Legally Blind, Hx Macular Degeneration, Hx Vision Problem, Other Sensory Impairments Neurological History: Reports: Hx Headaches, Hx Seizures, Other Neuro Impairments/Disorders - Subdural Hematoma Denies: Hx Dementia Psychiatric History: Reports: Hx Depression, Hx Substance Abuse - ETOH Denies: Hx Anxiety, Hx Attention Deficit Hyperactivity Disorder, Hx Eating Disorder, Hx Panic Disorder, Hx Post Traumatic Stress Disorder, Hx Inpatient Treatment, Hx Community Mental Health Tx, Hx Schizophrenia, Hx Bipolar Disorder , Hx Suicide Attempt, Hx of Violent Episodes Against Others, Other Psychiatric Issues/Disorders - Cancer History Cancer Type, Location and Year: None reported - Surgical History Surgery Procedure, Year, and Place: RIGHT ANKLE ORIF. LEFT KNEE TENDON REPAIR. CHOLECYSTECTOMY. APPENDECTOMY. TONSILLECTOMY Hx Anesthesia Reactions: No Infectious Disease History: No Infectious Disease History: Reports: Hx of Known/Suspected MRSA Denies: Hx Clostridium Difficile, Hx Hepatitis, Hx Human Immunodeficiency Virus (HIV), Hx Shingles, Hx Tuberculosis, History Other Infectious Disease, Traveled Outside the [place] in Last 30 Days - Family History Known Family History: Negative: Cardiac Disease, Diabetes - Social History Alcohol Use: None Alcohol Amount: 07/30/18 - states no use. Hx Substance Use: Yes Substance Use Type: Reports: None Substance Use Comment - Amount & Last Used: pt states he hasn't had a drink in 2 weeks Hx Tobacco Use: Yes Smoking Status (MU): Light Every Day Tobacco Smoker Type: Cigarettes Length of Time of Smoking/Using Tobacco: 5 years Have You Smoked in the Last Year: No Review of Systems Negative: Fever, Chills, Skin Diaphoresis Negative: Erythema Negative: Sore Throat Negative: Chest Pain Positive: Shortness Of Breath. Negative: Cough Positive: Abdominal Pain - at ribs with distension. Negative: Vomiting, Nausea Negative: dysuria, hematuria Negative: Myalgia, Edema Negative: Rash Neurological: Other - NEGATIVE: dizziness All Other Systems Reviewed And Are Negative: Yes Physical Exam - Summary Physical Exam Summary: Constitutional: Well-developed, Well-nourished, Alert. (-) Distressed Skin: Warm, Dry HENT: Normocephalic; Atraumatic Eyes: Conjunctiva normal Neck: Musculoskeletal ROM normal neck. (-) JVD, (-) Stridor, (-) Tracheal deviation Cardio: Rhythm regular, rate normal, Heart sounds normal; Intact distal pulses; The pedal pulses are 2+ and symmetric. Radial pulses are 2+ and symmetric. (-) Murmur Pulmonary/Chest wall: Effort normal. (-) Respiratory distress, (-) Wheezes, (-) Rales Abd: Ascites, (-) tenderness, (-) Distension, (-) Guarding, (-) Rebound Musculoskeletal: (-) Edema Lymph: (-) Cervical adenopathy Neuro: Alert, Oriented x3 Psych: Mood and affect Normal Triage Information Reviewed: Yes Vital Signs On Initial Exam: Initial Vitals Temp Pulse Resp BP Pulse Ox 99.0 F 96 18 140/89 98 05/09/19 16:37 05/09/19 16:37 05/09/19 16:37 05/09/19 16:37 05/09/19 16:37 Vital Signs Reviewed: Yes Diagnostics - Vital Signs Vital Signs Temp Pulse Resp BP Pulse Ox 05/09/19 16:37 99.0 F 89 18 140/89 98 - Laboratory Result Diagrams: 05/09/19 17:14 05/09/19 17:14 Lab Statement: Any lab studies that have been ordered have been reviewed, and results considered in the medical decision making process. Re-Evaluation - Re-Evaluation First Eval Re-Evaluation Time: 19:15 Comment: I spoke with the patient concerning admission. Abdominal Pain Male Course/Dx - Course Course Of Treatment: Patient is a 63 y/o M arriving by ambulance with cc of abd distension and rib pain worsening over the last 5 days with nml BMs and associated SOB. No fevers or diaphoresis. Hx of hernias, cirrhosis, ascites, MRSA. On low dose water pills. Upon physical exam, the patient exhibits ascites without abd tenderness. Blood work reveals RBCs of 3.31, Hgb of 8.6, Hct of 27, MCH of 26, RDW of 23, Plt count of 119, MPV of 6.6, BUN/Creatinine of 7.4, glucose of 130, calcium of 8.3, total bilirubin of 2.40, alkaline phosphatase of 131, ammonia of 98, CRP of 11.13, albumin of 2.5, and albumin/globulin of 0.6. Microbiology negative for MRSA. I do not suspect spontaneous bacterial peritonitis given absence of pain, normal WBCs, no constitution of symptoms, and nontender abdomen. Patient administered Furosemide in the ED course. Dr. Rosa, surgery, agreed to parcentesis. I informed him that we have 6 patients in waiting room in the ED, and the patient previously had 11L taken off. Large volume removal will most effectively be done on floor. He is accepted for admission by Dr. Walden, hospitalist, at 1900. Patient agrees with admission plan. He is diagnosed with ascites and cirrhosis. - Diagnoses Provider Diagnoses: Ascites, Cirrhosis - Provider Notifications Discussed Care Of Patient With: Eliel Rosa - surgery Time Discussed With Above Provider: 18:45 Instructed by Provider To: Other - Dr. Rosa agrees to parcentesis on the floor. I informed him that we have 6 patients in waiting room in the ED, and the patient previously had 11L taken off. He is accepted for admission by Dr. Walden, hospitalist, at 1900. Discharge - Sign-Out/Discharge Documenting (check all that apply): Patient Departure - Patient is accepted for admission by Dr. Walden. Patient Received Moderate/Deep Sedation with Procedure: No - Discharge Plan Condition: Stable Disposition: ADMITTED TO [facility] Referrals: Rosie Noriega MD [Primary Care Provider] - - Billing Disposition and Condition Condition: STABLE Disposition: Admitted to [facility] - Attestation Statements Document Initiated by Scribe: Yes Documenting Scribe: Margoth Isaacs Provider For Whom Scribe is Documenting (Include Credential): Dr. Bobby Calvin MD Scribe Attestation: Margoth Garay, scribed for Dr. Bobby Calvin MD on 05/09/19 at 2008. Status of Scribe Document: Ready
[2019-05-09 17:41] LABS: Hematocrit 27 % (42-52); Hemoglobin 8.6 g/dL (14.0-18.0); Mean Corpuscular HGB Conc 32 g/dL (31-36); Mean Corpuscular Hemoglobin 26 pg (27-31); Mean Corpuscular Volume 81 fL (80-94); Mean Platelet Volume 6.6 fL (7.4-10.4); Platelet Count 119 10^3/uL (150-450); Red Blood Count 3.31 10^6 /uL (4.18-5.48); Red Cell Distribution Width 23 % (10-15)
[2019-05-09 17:53] LABS: Albumin 2.5 g/dL (3.2-5.2); Albumin/Globulin Ratio 0.6 (1-3); BUN/Creatinine Ratio 7.4 (8-20); C Reactive Protein 11.13 mg/L (<8.01); Calcium 8.3 mg/dL (8.6-10.3); EGFR African American 117.2 (>60); EGFR Non-African American 96.9 (>60); Globulin 3.9 g/dL (2-4); Total Bilirubin 2.4 mg/dL (0.2-1.0); Total Protein 6.4 g/dL (6.4-8.9)
[2019-05-09 17:57] LABS: ABS Eosinophils 0.3 10^3/ul (0-0.6); ABS Monocytes 0.4 10^3/ul (0-0.8); ABS Neutrophils 2.3 10^3/ul (1.5-7.7); Eosinophil % 7.1 %; Lymphocyte % 24.6 %; Nucleated Red Blood Cells % 0.1
[2019-05-09] MEDS ORDERED: Furosemide IV* 10 MG/ML VIAL (40 MG) IV SLOW PU ONE (18:43)
[2019-05-09] MEDS ORDERED: Albuterol HFA INHALER* 8 gm MDI INH PRN (20:44)
[2019-05-09] MEDS ORDERED: traZODone TAB* 50 MG TAB PO SCH (21:00)
[2019-05-09] MEDS ORDERED: Gabapentin CAP(*) 300 MG PO SCH (21:00)
[2019-05-09] MEDS: Magnesium Oxide TAB* 400 MG PO SCH (21:19)
[2019-05-09] MEDS: busPIRone TAB* 5 MG PO SCH (21:19)
[2019-05-09] MEDS: Pantoprazole TAB * 40 MG TAB PO SCH (21:20)
[2019-05-09] MEDS: levETIRAcetam TAB* 500 MG PO SCH (21:33)
[2019-05-09 23:15] LABS: Urine Appearance Clear; Urine Bacteria Absent (Absent); Urine Bilirubin Negative (Negative); Urine Blood 2+ (Negative); Urine Color Straw; Urine Glucose Negative (Negative); Urine Ketones Negative (Negative); Urine Nitrite Negative (Negative); Urine Protein Negative (Negative); Urine Red Blood Cell 2+(6-10/hpf) (Absent); Urine Specific Gravity 1.003 (1.010-1.030); Urine Urobilinogen Negative (Negative); Urine White Blood Cell Absent (Absent)
[2019-05-09] MEDS: RiFAXimin* 550 MG TAB PO SCH (23:20)
--- NOTE | 2019-05-09 23:39 | HP ---
CC: Sudha Mcclelland * HISTORY AND PHYSICAL: DATE OF ADMISSION: 05/09/19 PRIMARY CARE PHYSICIAN: Sudha Mcclelland. ATTENDING PHYSICIAN WHILE IN THE HOSPITAL: Dr. Blanca Walden * (dictated by Siobhan Haynes NP). CHIEF COMPLAINT: Abdominal distention. HISTORY OF PRESENT ILLNESS: Mr. Mata is a 63-year-old male with a past medical history significant for hepatic encephalopathy secondary to alcohol cirrhosis, history of hypertension, asthma, depression, seizures, umbilical hernia, history of a stroke, and history of conversion disorder; who presented to the emergency room with complaints of increasing abdominal distention. The patient does report that his abdomen has been swelling for the past 5 days, acutely worse over the past 2 days. The patient does complain of mild tenderness to his right lower abdomen due to pressure from abdominal swelling. Due to his abdominal swelling, we were asked to see and evaluate him for admission. The patient reports that he has had paracentesis in the past for ascites, but has not had a paracentesis in approximately 1 year. The patient also reports he recently had his diuretic medications decreased by half. His furosemide decreased from 40 to 20 and his spironolactone decreased from 100 to 50 on 04/02. The patient denies any fever, chills, unintentional weight loss, chest pain, or edema. Denies any cough or hemoptysis. He does report occasional shortness of breath. Denies any nausea, vomiting, diarrhea, hematuria, or dysuria. Denies any focal weakness or sensory loss. Denies any dysphagia, arthralgias, myalgias, rashes, lesions, or open sores. Denies any psychosis or anxiety. PAST MEDICAL HISTORY: Significant for alcoholic cirrhosis of the liver, history of hepatic encephalopathy, history of subdural hematoma, history of hypertension and asthma, history of depression, history of seizures, umbilical hernia, history of stroke, history of conversion disorder. PAST SURGICAL HISTORY: 1. Ankle surgery. 2. Appendectomy. 3. Tonsil and adenoid removed. 4. Cholecystectomy. 5. Bilateral knee surgeries. HOME MEDICATIONS: Include: 1. Folic acid 1 mg p.o. daily. 2. Lasix 20 mg p.o. daily. 3. Duloxetine 60 mg p.o. daily. 4. Pepcid 40 mg p.o. at bedtime. 5. Fluticasone nasal spray 1 spray both nares daily. 6. Gabapentin 300 mg at bedtime. 7. Furosemide 20 mg p.o. daily. 8. Lidocaine patch 5 mg daily. 9. Nasacort 1 spray to both nares daily. 10. Spironolactone 50 mg p.o. daily. 11. Trazodone 50 mg at bedtime. 12. Vitamin B12 500 mcg p.o. daily. 13. Keppra 500 mg p.o. b.i.d. 14. Lactulose 45 mL p.o. b.i.d. 15. Magnesium oxide 400 mg p.o. b.i.d. 16. Midodrine 2.5 mg p.o. b.i.d. 17. Omeprazole 20 mg p.o. b.i.d. 18. Rifaximin 550 mg p.o. b.i.d. 19. Acetaminophen 650 mg p.o. q.6 hours as needed for pain. 20. Benadryl gel 2% q.8 hours p.r.n. 21. Albuterol HFA inhaler 2 puffs q.4 hours as needed for shortness of breath. 22. EpiPen as needed. 23. Zofran 4 mg p.o. q.8 hours as needed for nausea. ALLERGIES: He has allergy to BEE POLLEN, HYDROXYZINE, SERTRALINE, ATIVAN. FAMILY HISTORY: Mother from a stroke. Father is alive at the age of 88. No reported history of cancer. Sister with diabetes. SOCIAL HISTORY: The patient is currently residing at [facility]. He does report occasional cigarette use. Denies any alcohol or illicit drug use. Surrogate decision maker in the event he is unable to make his own decisions is his sister, [place]. He is a full code. REVIEW OF SYSTEMS: A 14-point review of systems was completed. All pertinent positives are mentioned in the HPI, otherwise were negative. PHYSICAL EXAMINATION GENERAL: At this time, the patient is alert and oriented, resting on the stretcher in the emergency room. He is calm. VITAL SIGNS: Blood pressure 122/62, heart rate 97, respirations are 18, O2 saturation 98%, blood pressure 122/62, temperature was 99.0. HEENT: Head is atraumatic and normocephalic. Eyes; EOMs are intact. Sclerae anicteric and not pale. Oral mucosa appear to be moist. NECK: Supple. LUNGS: Clear to auscultation bilaterally. No wheezes, rales, or rhonchi. CARDIAC: S1 and S2. No rubs or gallops. ABDOMEN: Distended, round, slightly firm to the touch with mild point tenderness noted to the right side. Bowel sounds are present x4. EXTREMITIES: Pedal pulses are +2 bilaterally. He has no clubbing or cyanosis. There is no edema. NEUROLOGIC: The patient is alert and oriented x3. There are no neurological deficits. LABORATORY DATA AND DIAGNOSTIC STUDIES: WBC are 4.0, RBC's 3.31, hemoglobin 8.6, hematocrit is 27, platelet count is 119. Sodium 135, potassium 4.0, chloride 103, carbon dioxide is 27, anion gap is 5, BUN was 6, creatinine 0.81, glucose is 130, lactic acid was 2.9. Total bili was 2.40. ASTs were 28, ALTs were 16, alkaline phosphatase was 131, ammonia was 98, C-reactive protein was 11.13, lipase was 79. ASSESSMENT AND PLAN: Mr. Mata is a 63-year-old male with a past medical history significant for alcoholic cirrhosis of the liver, history of hepatic encephalopathy, hypertension, depression, seizures, history of umbilical hernia ; who presented to the emergency room with complaints of increased abdominal distention x5 days. Due to the abdominal distention, we were asked to see and evaluate the patient for admission. 1. Ascites. The patient does have a history of alcoholic cirrhosis of the liver. History of ascites requiring paracentesis in the past. Dr. Rosa from Surgery was consulted and will do a paracentesis tomorrow. The patient will be monitored overnight and likely discharged after his paracentesis tomorrow as the patient is afebrile with no signs of acute illness. I have low suspicion for SBP at this time as the patient has recently had his diuretics decreased which I suspect is contributing to his increased level of ascites. Patient did reports that he was seen last month and had a small pocket of fluid in the abdomen but nothing that needed to be drained at that time. He has been afebrile, no severe abdominal pain, and no change in mentation which all would be signs consistent with SBP. We will monitor him for fever and increasing abdominal pain and treat as needed. 2. Elevated lactic acid. The patient does have a chronically elevated lactic acid. I suspect this is related to chronic hepatic insufficiency as this can result in lactate accumulation. At this time, the patient does not appear to be septic. He is afebrile. He is not tachycardic. He is not tachypneic and he has no soure of infection. No cough or congestion. He denies any urinary frequency, urgency, or burning with urination. I will check a UA. 3. Alcoholic cirrhosis. We will consult Surgery for a paracentesis tomorrow. The patient will continue on rifaximin as previously prescribed. He should continue his Aldactone and Lasix. 4. Acid reflux. He will continue on omeprazole 20 mg p.o. b.i.d. 5. History of seizures. The patient will continue on Keppra 500 mg p.o. b.i.d. 6. Depression. He will continue on BuSpar 5 mg p.o. b.i.d. as well as Cymbalta 60 mg p.o. daily. 7. Anemia. I suspect his anemia is from chronic disease. His H and H is consistent with his baseline. 8. Elevated ammonia level. The patient does have an elevated ammonia level. I will increase his lactulose from 45 mL b.i.d. to 30 mL t.i.d. and continue to monitor his mentation. 9. FEN. He can have a regular diet. 10. Code status. He is a full code. 11. DVT prophylaxis. I will place him on SCDs. 12. Disposition. The patient will be placed on [address] [place] [address]. TIME SPENT: Time spent on this admission was approximately 60 minutes, greater than half that time was spent at the bedside reviewing the events leading thus far to his hospitalization, performing the physical exam, and reviewing my plan of care. I have discussed this with my attending Dr. Blanca Walden, she is in agreement with my plan. SIOBHAN HAYNES, DARCI [id number]/[facility] #: [id number] [facility]PRESBYTERIAN HOSPITALMaciej
[2019-05-10 06:16] LABS: INR 1.69 (0.82-1.09)
[2019-05-10 06:19] LABS: ABS Eosinophils 0.3 10^3/ul (0-0.6); ABS Lymphocytes 0.9 10^3/ul (1.0-4.8); ABS Monocytes 0.5 10^3/ul (0-0.8); ABS Neutrophils 1.7 10^3/ul (1.5-7.7); Hematocrit 26 % (42-52); Hemoglobin 8.2 g/dL (14.0-18.0); Lymphocyte % 25.4 %; Mean Corpuscular HGB Conc 32 g/dL (31-36); Mean Corpuscular Hemoglobin 26 pg (27-31); Mean Corpuscular Volume 80 fL (80-94); Mean Platelet Volume 6.9 fL (7.4-10.4); Nucleated Red Blood Cells % 0.2; Platelet Count 119 10^3/uL (150-450); Red Cell Distribution Width 23 % (10-15); White Blood Count 3.4 10^3/uL (3.5-10.8)
[2019-05-10 06:28] LABS: BUN/Creatinine Ratio 6.9 (8-20); Calcium 8.3 mg/dL (8.6-10.3); EGFR African American 90.9 (>60); EGFR Non-African American 75.1 (>60); Potassium 3.9 mmol/L (3.5-5.0)
[2019-05-10] MEDS: levETIRAcetam TAB* 500 MG PO SCH (08:25)
[2019-05-10] MEDS: Pantoprazole TAB * 40 MG TAB PO SCH (08:25)
[2019-05-10] MEDS: RiFAXimin* 550 MG TAB PO SCH (08:25)
[2019-05-10] MEDS: busPIRone TAB* 5 MG PO SCH (08:25)
[2019-05-10] MEDS ORDERED: Furosemide TAB* 20 MG PO SCH (09:00)
[2019-05-10] MEDS ORDERED: Cyanocobalamin TAB* 500 MCG PO SCH (09:00)
[2019-05-10] MEDS ORDERED: DULoxetine DR CAP* 60 MG CAP.DR PO SCH (09:00)
[2019-05-10] MEDS ORDERED: Lidocaine PATCH 5%* 1 PATCH TRANSDERM SCH (09:00)
[2019-05-10] MEDS ORDERED: Folic Acid TAB* 1 MG PO SCH (09:00)
[2019-05-10] MEDS ORDERED: TRIAMCINOLONE BOTH NARES SCH (09:00)
[2019-05-10] MEDS ORDERED: Fluticasone NASAL SPRAY 50MCG* 16 gm SPRAY BTL BOTH NARES SCH (09:00)
[2019-05-10] MEDS ORDERED: Spironolactone TAB* 25 MG PO SCH (09:00)
[2019-05-10] MEDS: Magnesium Oxide TAB* 400 MG PO SCH (09:53)
--- NOTE | 2019-05-10 10:46 | CONS ---
CONSULTATION REPORT: DATE OF CONSULT: 05/10/19 CHIEF COMPLAINT: Admission for abdominal pain. HISTORY OF PRESENT ILLNESS: This pleasant 63-year-old gentleman was admitted through the emergency r oom last night with abdominal pain. 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 I was contacted by the emergency room to consider performing a paracentesis due to the abdominal lizabeth n and ascites. No fevers or chills. Apparently, his abdomen has become large over the last 5 or 6 d ays. He had paracentesis, he thinks, 1 to 2 years ago, but none since. He was admitted and placed o n Lasix and now states that his abdominal pain has resolved and he feels good. He is currently eatin g breakfast. PAST MEDICAL HISTORY: Known alcoholic cirrhosis of the liver, history of hepatic encephalopathy, his tory of subdural hematoma, hypertension, asthma, depression, seizures, stroke, and conversion disorde r all gained from his history and physical. PAST SURGICAL HISTORY: By report, appendectomy, cholecystectomy, bilateral knee surgery, ankle surge ry, tonsils and adenoids. HOME MEDICATION LIST: He was placed on, I believe, a high dose of Lasix here ALLERGIES: HYDROXYZINE, SERTRALINE, ATIVAN, bee pollen. FAMILY HISTORY: Mother from a stroke. SOCIAL HISTORY: He resides at [facility]. He is a smoker. No current alcohol use. He is a full code. REVIEW OF SYSTEMS: GI/Abdomen: Denies abdominal pain. General: Denies fevers or chills. Overall, he feels well this morning. PHYSICAL EXAM: General: A pleasant gentleman sitting up in bed, eating breakfast. He is afebrile. Vital Signs: Stable. Cardiac: Regular. Lungs: Clear anteriorly. Abdomen: Distended, nontender. Moderate- to large-sized umbilical hernia. Extremities: No edema. Neuro Exam: Grossly intact. DIAGNOSTIC STUDIES/LAB DATA: Laboratory studies show decreasing white blood cell count below 4.0, to day at 3.4. Electrolytes are normal. Calcium is low at 8.3. IMPRESSION: A 63-year-old gentleman with cirrhosis, ascites responding to Lasix. He is now asymptoma tic with no abdominal pain. At this point, since he is asymptomatic and his white count is low, I wo uld treat this conservatively today. He will need ultrasound guidance for drainage. He may need duri ng this stay interventional radiology if Lasix does not continue to be effective. [id number]/[facility] #: [id number]
[2019-05-10] MEDS ORDERED: Furosemide IV* 10 MG/ML 2 ML VIAL (20 MG) IV ONE (11:18)
--- NOTE | 2019-05-10 14:26 | DS ---
DISCHARGE SUMMARY: DATE OF ADMISSION: 05/09/19 DATE OF DISCHARGE: 05/10/19 PROVIDER: Siobhan Haynes NP. PRIMARY CARE PROVIDER: Sudha Mcclelland. ATTENDING PHYSICIAN WHILE IN THE HOSPITAL: Dr. Diann Liu * (dictated by Siobhan Haynes NP). PRIMARY DIAGNOSES: 1. Alcoholic cirrhosis of the liver with ascites. 2. Anemia. 3. Elevated Ammonia level SECONDARY DIAGNOSES: 1. History of hypertension. 2. History of asthma. 3. History of depression. 4. History of seizures. 5. History of stroke. 6. History of conversion disorder. STUDIES COMPLETED WHILE IN THE HOSPITAL: None. DISCHARGE MEDICATIONS: [place] Medications: 1. Lasix increased to 40 mg p.o. daily. 2. Spironolactone increased to 100 mg p.o. daily. 3. Lactulose increased to 45 mL b.i.d. and 30 mL at bedtime. Continued Home Medications: 1. Zofran 4 mg p.o. q.8 hours as needed. 2. Epi 0.3 mg IM once as needed. 3. Albuterol HFA inhaler 2 puffs q.4 hours as needed. 4. Benadryl Itch 2% gel q.8 hours as needed for itching. 5. Acetaminophen 650 mg p.o. q.6 hours p.r.n. 6. Rifaximin 550 mg p.o. b.i.d. 7. Omeprazole 20 mg p.o. b.i.d. 8. Midodrine 2.5 mg p.o. b.i.d. 9. Magnesium oxide 400 mg p.o. b.i.d. 10. Keppra 500 mg p.o. b.i.d. 11. Buspirone 5 mg p.o. b.i.d. 12. Vitamin B12 at 500 mcg p.o. daily. 13. Trazodone 50 mg p.o. at bedtime. 14. Nasacort 1 spray to both nares. 15. Lidoderm patch 1 patch daily. 16. Gabapentin 400 mg p.o. at bedtime. 17. Folic acid 1 mg p.o. daily. 18. Fluticasone nasal spray 1 spray to both nares daily. 19. Pepcid 40 mg p.o. at bedtime. (patient reports that this medications was discontinued) 20. Duloxetine 60 mg p.o. daily. HISTORY OF PRESENT ILLNESS AND HOSPITAL COURSE: Mr. Mata is a 63-year-old male with a past medical history significant for alcoholic cirrhosis of the liver, history of hepatic encephalopathy, hypertension, depression, seizures, stroke, umbilical hernia, and history of conversion disorder who presented to the emergency room with complaints of increasing abdominal distention. The patient reports that he has had increased swelling in his abdomen for the past 5 days, acutely worse over the past 2 days, and complained of mild tenderness to the abdomen due to the swelling. The patient does report a history of paracenteses in the past, last being approximately 1 year ago. The patient also reported recent reduction in his diuretics at the end of March. Due to his increasing abdominal distention and ascites, the patient was admitted to the hospital for possible paracentesis in the morning. He was seen in consultation by surgery, Dr. Rosa, who recommended conservative care at this time and continuing with diuretics and had ultrasound- guided drainage with interventional radiology. At this time, the patient does report improvement and his abdominal pain has resolved and that the swelling in his abdomen has improved since receiving Lasix IV yesterday. At this time, he is stable for discharge back to [facility]. REVIEW OF SYSTEMS: The patient denies any fever or chills. He denies any chest pain or shortness of breath. Denies any cough or congestion. No nausea, vomiting, or diarrhea. He denies any abdominal pain. He denies any hematuria, dysuria, focal weakness, or sensory loss. Denies any dysphagia, arthralgias, or myalgias. He does continue to complain of abdominal distention, but pain has improved. PHYSICAL EXAMINATION: General: At this time, Mr. Mata is alert and oriented, resting in his hospital bed. He is in no acute distress. HEENT: Head is atraumatic, normocephalic. Eyes: EOMs are intact. Sclerae anicteric and not pale. Oral mucosa appeared to be moist. Neck is supple. Lungs are clear to auscultation bilaterally. No wheezes, rales, or rhonchi. Cardiac: S1, S2. Regular rate and rhythm. No murmurs, rubs, or gallops. Abdomen is distended, slightly firm. Bowel sounds are present x4. Extremities: There is no clubbing or cyanosis. He has got no lower extremity edema. Neurologic: He is awake, alert, and oriented x3. Speech is clear. Thought process is intact. There are no gross focal deficits. Skin is intact. At this time, Mr. Mata is stable for discharge to [facility]. Vital signs are as follows: Blood pressure 133/68, temperature was 98.1, heart rate 85, respirations 16, O2 saturation 95% on room air. DISCHARGE PLAN: Mr. Mata will be discharged back to [facility]. Activity as tolerated. 1. Abdominal distention. I suspect this is related to his alcoholic cirrhosis of the liver with ascites after recent reduction in oral diuretics. He was seen in consultation by surgery, who recommended conservative treatment at this time as the patient does have a slightly low normal white count and is feeling better. Abdominal pain has resolved at this time after receiving IV diuretics. The patient will receive an extra 20 mg of IV Lasix today. He will have his Lasix increased from 20 mg to 40 mg and his spironolactone increased from 50 to 100 mg p.o. daily. He should have a repeat CBC and BMP on Sunday. He has to scheduled an appointment with interventional radiology this week for a paracentesis as an outpatient. The is without clinical signs of symptoms of spontaneous bacterial peritonitis at this time. He is afebrile, has no abdominal pain, no elevated white could and no change in mentation. Should he develop a fever severe abdominal pain or change in mentation the patient was instructed to return to the emergency room. 2. Elevated ammonia. The patient did have an elevated ammonia level. I did increase his lactulose to 45 mL twice daily and 30 mL at bedtime. He should have a repeat ammonia level next week. 3. Anemia. The patient does have chronic anemia, suspect from his underlying chronic disease. Continue to monitor this as an outpatient. Followup. The patient should follow up with his primary care provider in 4 to 7 days. He should have an outpatient paracentesis scheduled for next week with interventional radiology. I would repeat a CBC and BMP on Sunday. TIME SPENT: Time spent on this discharge is approximately 45 minutes, greater than half that time was spent at the bedside reviewing discharge instructions and plans. The patient did verbalize understanding. The patient should return to the emergency room for worsening abdominal pain, increased swelling, fever, chills, nausea, vomiting, diarrhea, chest pain, or shortness of breath, or any other concerning symptoms. The patient verbalized understanding. CONDITION ON DISCHARGE: Stable. DISPOSITION ON DISCHARGE: [facility]. I have discussed with my attending, Dr. Diann Liu; she is in agreement with my plan. SIOBHAN HAYNES NP [id number]/[facility] #: [id number] [facility]ISCH HOSPITALMaciej
[2019-05-10 15:57] VITALS: BP 117/67
== END 2019-05-10 17:21 ==
LOC: ED 16:25 → MEDTELE 20:40
PROVIDERS: ADMIT Internal Medicine; ATTEND Internal Medicine
DX: K70.31 Alcoholic cirrhosis of liver with ascites (principal); D64.9 Anemia, unspecified; R74.0 Nonspecific elevation of levels of transaminase and lactic acid dehydrogenase [LDH]; R79.89 Other specified abnormal findings of blood chemistry; K21.9 Gastro-esophageal reflux disease without esophagitis; I10 Essential (primary) hypertension; J45.909 Unspecified asthma, uncomplicated; F31.9 Bipolar disorder, unspecified; G40.909 Epilepsy, unspecified, not intractable, without status epilepticus; Z86.73 Personal history of transient ischemic attack (TIA), and cerebral infarction without residual deficits; F44.9 Dissociative and conversion disorder, unspecified; Z79.899 Other long term (current) drug therapy; Z88.8 Allergy status to other drugs, medicaments and biological substances; F17.210 Nicotine dependence, cigarettes, uncomplicated
CPT/HCPCS: 36415; 80048; 80053; 81003; 81015; 82140; 83605; 83690; 85025; 85610; 86140; 87040; 87641; 96374; 96376; 99284; A9270-GY; G0378; J1940

== ENCOUNTER 2019-05-15 01:39 | Emergency (ER) | payer MEDICARE ==
--- NOTE | 2019-05-15 02:21 | ED ---
Laceration/Wound HPI - HPI Summary HPI Summary: A 63 y/o male brought in by [facility] ambulance presents to [facility] with a chief complaint of a laceration on his right 4th toe. He says that he was in bed and was going to go to the bathroom when staff noticed blood. He was told to come to the ED for some stitches. He says that he may have whacked his foot on his wheelchair. - History of Current Complaint Stated Complaint: LACERATION PER EMS Time Seen by Provider: 05/15/19 02:14 Hx Obtained From: Patient, EMS Onset/Duration: Sudden Onset, Lasting Hours, Still Present Aggravating: Nothing Alleviating: Nothing Timing: Constant Onset Severity: Moderate Current Severity: Moderate Pain Intensity: 5 Pain Scale Used: 0-10 Numeric Associated Signs & Symptoms: Negative - fever - Additional Pertinent History Primary Care Physician: CARO - Allergy/Home Medications Allergies/Adverse Reactions: Allergies Allergy/AdvReac Type Severity Reaction Status Date / Time bee pollen Allergy Hives Verified 04/03/19 02:24 bee venom protein (honey bee) Allergy Hives Verified 04/03/19 02:24 hydroxyzine [From Atarax] Allergy See Comment Verified 04/03/19 02:24 lorazepam [From Ativan] Allergy See Comment Verified 04/03/19 02:24 sertraline Allergy Rash And Verified 04/03/19 02:24 Itching PMH/Surg Hx/FS Hx/Imm Hx Endocrine/Hematology History: Reports: Hx Diabetes - elevated glucose after acute liver failure - diet controlled Denies: Hx Anticoagulant Therapy, Hx Thyroid Disease, Hx Anemia, Hx Unexplained Bleeding Cardiovascular History: Reports: Hx Hypercholesterolemia, Hx Hypertension Denies: Hx Aneurysm, Hx Angina, Hx Angioplasty, Hx Auto Implanted Cardiovert Defib, Hx Cardiac Arrest, Hx Cardiomegaly, Hx Congenital Heart Disease, Hx Congestive Heart Failure, Hx Coronary Artery Disease, Hx Deep Vein Thrombosis, Hx Embolism, Hx Hypotension, Hx Pacemaker/ICD, Hx Peripheral Vascular Disease, Hx Rheumatic Fever, Hx Syncope, Hx Valvular Heart Disease, Other Cardiovascular Problems/Disorders Respiratory History: Reports: Hx Asthma, Hx Chronic Bronchitis, Hx Seasonal Allergies - hay fever Denies: Hx Chronic Obstructive Pulmonary Disease (COPD), Hx Cystic Fibrosis, Hx Lung Cancer, Hx Pleural Effusion, Hx Pneumonia, Hx Pulmonary Edema, Hx Pulmonary Embolism, Hx Sleep Apnea, Other Respiratory Problems/Disorders GI History: Reports: Hx Cirrhosis, Hx Gall Bladder Disease, Hx Hiatal Hernia, Hx Ulcer Denies: Hx Crohn's Disease, Hx Diverticulosis, Hx Gastroesophageal Reflux Disease, Hx Gastrointestinal Bleed, Hx Irritable Bowel, Hx Jaundice, Hx Obstructive Bowel, Hx Ileostomy, Hx Pyloric Stenosis, Other GI Disorders History: Denies: Hx Dialysis, Hx Renal Disease Musculoskeletal History: Reports: Hx Arthritis - both knees, Hx Orthopedic Injury Denies: Hx Back Problems, Hx Bursitis, Hx Congenital Bone Abnormalities, Hx Fibromyalgia, Hx Gout, Hx Osteoporosis, Hx Scoliosis, Hx Tendonitis, Other Musculoskeletal History Sensory History: Reports: Hx Contacts or Glasses Denies: Hx Cataracts, Hx Eye Injury, Hx Eye Prosthesis, Hx Glaucoma, Hx Legally Blind, Hx Macular Degeneration, Hx Vision Problem, Hx Deafness, Hx Hearing Aid, Hx Hearing Problem, Other Sensory Impairments Opthamlomology History: Reports: Hx Contacts or Glasses Denies: Hx Cataracts, Hx Eye Injury, Hx Eye Prosthesis, Hx Glaucoma, Hx Legally Blind, Hx Macular Degeneration, Hx Vision Problem, Other Sensory Impairments Neurological History: Reports: Hx Headaches, Hx Seizures, Other Neuro Impairments/Disorders - Subdural Hematoma Denies: Hx Dementia Psychiatric History: Reports: Hx Depression, Hx Substance Abuse - ETOH Denies: Hx Anxiety, Hx Attention Deficit Hyperactivity Disorder, Hx Eating Disorder, Hx Panic Disorder, Hx Post Traumatic Stress Disorder, Hx Inpatient Treatment, Hx Community Mental Health Tx, Hx Schizophrenia, Hx Bipolar Disorder , Hx Suicide Attempt, Hx of Violent Episodes Against Others, Other Psychiatric Issues/Disorders - Cancer History Cancer Type, Location and Year: None reported - Surgical History Surgery Procedure, Year, and Place: RIGHT ANKLE ORIF. LEFT KNEE TENDON REPAIR. CHOLECYSTECTOMY. APPENDECTOMY. TONSILLECTOMY Hx Anesthesia Reactions: No Infectious Disease History: No Infectious Disease History: Reports: Hx of Known/Suspected MRSA Denies: Hx Clostridium Difficile, Hx Hepatitis, Hx Human Immunodeficiency Virus (HIV), Hx Shingles, Hx Tuberculosis, History Other Infectious Disease, Traveled Outside the [place] in Last 30 Days - Family History Known Family History: Positive: Non-Contributory Negative: Cardiac Disease, Diabetes - Social History Alcohol Use: None Alcohol Amount: 07/30/18 - states no use. Hx Substance Use: Yes Substance Use Type: Reports: None Substance Use Comment - Amount & Last Used: pt states he hasn't had a drink in 2 weeks Hx Tobacco Use: Yes Smoking Status (MU): Light Every Day Tobacco Smoker Type: Cigarettes Length of Time of Smoking/Using Tobacco: 5 years Have You Smoked in the Last Year: No Review of Systems Negative: Fever Positive: Other - positive: laceration on the right 4th toe All Other Systems Reviewed And Are Negative: Yes Physical Exam - Summary Physical Exam Summary: Constitutional: Well-developed, Well-nourished, Alert. (-) Distressed Skin: Warm, Dry HENT: Normocephalic; Atraumatic Eyes: Conjunctiva normal Neck: Musculoskeletal ROM normal neck. (-) JVD, (-) Stridor, (-) Tracheal deviation Cardio: Rhythm regular, rate normal, Heart sounds normal; Intact distal pulses; The pedal pulses are 2+ and symmetric. Radial pulses are 2+ and symmetric. (-) Murmur Pulmonary/Chest wall: Effort normal. (-) Respiratory distress, (-) Wheezes, (-) Rales Abd: Soft, (-) tenderness, (-) Distension, (-) Guarding, (-) Rebound Musculoskeletal: (-) Edema, right 4th toe on the plantar surface just over the MP joint there is a 1cm long laceration, the toe is TTP and the 3rd toe has some ecchymosis just proximal to the nail bed Lymph: (-) Cervical adenopathy Neuro: Alert, Oriented x3 Psych: Mood and affect Normal Triage Information Reviewed: Yes Vital Signs On Initial Exam: Initial Vitals Temp Pulse Resp BP Pulse Ox 97.8 F 105 20 133/73 97 05/15/19 01:42 05/15/19 01:42 05/15/19 01:42 05/15/19 01:42 05/15/19 01:42 Vital Signs Reviewed: Yes Procedures - Laceration/Wound Repair 1 Location: lower extremity Anesthesia: Lido - 3ml, Epi Length, Depth and Shape: 1 cm long, manually irrigated with syringe Suture Type: Other - 3-0 Ethilon Number of Sutures: 3 - interrupted Diagnostics - Vital Signs Vital Signs Temp Pulse Resp BP Pulse Ox 05/15/19 01:42 97.8 F 105 20 133/73 97 - Laboratory Lab Statement: Any lab studies that have been ordered have been reviewed, and results considered in the medical decision making process. - Radiology foot x-ray Radiology Interpretation Completed By: ED Physician Summary of Radiographic Findings: no acute fracutre. Jonah official imaging report. Re-Evaluation - Re-Evaluation First Eval Re-Evaluation Time: 03:59 Change: Unchanged Comment: lac repair Laceration Repair Course/Dx - Course Course Of Treatment: A 63 y/o male brought in by [facility] ambulance presents to [facility] with a chief complaint of a laceration on his right 4th toe. The physical exam revealed right 4th toe on the plantar surface just over the MP joint there is a 1cm long laceration, the toe is TTP and the 3rd toe has some ecchymosis just proximal to the nail bed. Foot x-ray showed no acute fracture. The laceration was repaired. See procedure note. In the ED course the patient was given Keflex PO. The patient will be discharged with a prescription for Keflex and follow up with his PCP. He is agreeable with this plan. - Clinical Impression Provider Diagnoses: Toe laceration Discharge - Sign-Out/Discharge Documenting (check all that apply): Patient Departure - DC Patient Received Moderate/Deep Sedation with Procedure: No - Discharge Plan Condition: Stable Disposition: HOME Prescriptions: Cephalexin CAP* [Keflex CAP*] 500 mg PO TID 5 Days #15 cap Patient Education Materials: Laceration (ED) Print Language: MONGOLIAN Referrals: Rosie Noriega MD [Primary Care Provider] - Additional Instructions: do not bear weight for 48h, then weight bear as tolerated. Sutures need to be removed in 7-10d. you may resume your normal home medications and meals. - Billing Disposition and Condition Condition: STABLE Disposition: Home - Attestation Statements Document Initiated by Corey: Yes Documenting Scribe: Peter Estes Provider For Whom Corey is Documenting (Include Credential): Saritha Saavedra MD Scribe Attestation: I, Peter Estes, scribed for Saritha Cheng MD on 05/15/19 at 0650. Scribe Documentation Reviewed: Yes Provider Attestation: The documentation as recorded by the Peter segundo accurately reflects the service I personally performed and the decisions made by me, Saritha Cheng MD Status of Scribe Document: Viewed
[2019-05-15] MEDS ORDERED: Cephalexin CAP* 500 MG PO ONE (04:48)
[2019-05-15] MEDS ORDERED: Bacitracin OINTMENT* 0.5% 0.5 oz TUBE TOPICAL ONE (04:52)
[2019-05-15 05:48] VITALS: BP 122/69
== END 2019-05-15 05:30 | disposition home or self-care (01) ==
LOC: ED 01:39
DX: S91.114A Laceration without foreign body of right lesser toe(s) without damage to nail, initial encounter (principal); W22.09XA Striking against other stationary object, initial encounter; Y92.009 Unspecified place in unspecified non-institutional (private) residence as the place of occurrence of the external cause; E11.9 Type 2 diabetes mellitus without complications; E78.00 Pure hypercholesterolemia, unspecified; I10 Essential (primary) hypertension; J45.909 Unspecified asthma, uncomplicated; K74.60 Unspecified cirrhosis of liver; F32.9 Major depressive disorder, single episode, unspecified; F17.210 Nicotine dependence, cigarettes, uncomplicated; Z88.8 Allergy status to other drugs, medicaments and biological substances
CPT/HCPCS: 12001; 99284; A9270-GY

== ENCOUNTER 2019-12-20 14:26 | Inpatient (IN) | payer MEDICARE ==
--- NOTE | 2019-12-20 15:12 | ED ---
Respiratory - HPI Summary HPI Summary: 64 year old male presents to the ED with a chief complaint of difficulty breathing. Patient states he has had a buildup of fluid in his chest over the last week. Patient reports sinus pressure last week that has since resolved and a slight chronic cough with clear sputum. Patient denies fevers, chills, travel outside the country, contact with lab-confirmed COVID-19, or swelling in his feet or legs. Patient is a former ETOH user. - History of Current Complaint Chief Complaint: EDUpperRespComplaint Stated Complaint: RETAINING FLUID Time Seen by Provider: 12/20/19 14:58 Hx Obtained From: Patient Onset/Duration: Gradual Onset, Lasting Days, Still Present Initial Severity: Moderate Current Severity: Moderate Pain Intensity: 7 Character: Cough (Productive) - clear sputum, chronic, Dyspnea at Rest Sputum Amount: Small Sputum Color: Clear Alleviating Factor(s): Nothing Associated Signs and Symptoms: Dyspnea, Sinus Discomfort - Allergy/Home Medications Allergies/Adverse Reactions: Allergies Allergy/AdvReac Type Severity Reaction Status Date / Time bee pollen Allergy Hives Verified 12/20/19 16:38 bee venom protein (honey bee) Allergy Hives Verified 12/20/19 16:38 hydroxyzine [From Atarax] Allergy See Comment Verified 12/20/19 16:38 lorazepam [From Ativan] Allergy See Comment Verified 12/20/19 16:38 sertraline Allergy Rash And Verified 12/20/19 16:38 Itching Home Medications: Home Medications Cyanocobalamin TAB* [Vitamin B12 TAB*] 500 mcg PO DAILY 03/08/18 [History Confirmed 12/20/19] Albuterol HFA INHALER* [Ventolin HFA Inhaler*] 2 puff INH Q4H PRN 07/09/18 [ History Confirmed 12/20/19] EPINEPHrine [Epipen 2-Maciej] 0.3 mg IM ONCE PRN #0 09/24/18 [Rx Confirmed 12/20/19 ] Acetaminophen TAB* [Tylenol TAB*] 650 mg PO Q6HR PRN 11/12/18 [History Confirmed 12/20/19] Triamcinolone NASAL SPRAY* [Nasacort Aq Nasal Effie*] 1 spray BOTH NARES DAILY 03/04/19 [History Confirmed 12/20/19] busPIRone TAB* [Buspar TAB*] 5 mg PO BID 03/04/19 [History Confirmed 12/20/19] Folic Acid 1 mg PO DAILY 03/16/19 [History Confirmed 12/20/19] DULoxetine DR RUSSO* [Cymbalta CAP*] 60 mg PO DAILY #30 juarez. 03/27/19 [Rx Confirmed 12/20/19] Fluticasone NASAL SPRAY 50MCG* [Flonase NASAL SPRAY 50MCG*] 1 spray BOTH NARES DAILY btl 03/27/19 [Rx Confirmed 12/20/19] Gabapentin CAP(*) [Neurontin 300 CAP(*)] 300 mg PO BEDTIME cap 03/27/19 [Rx Confirmed 12/20/19] Lidocaine PATCH 5%* [Lidoderm 5% Patch*] 1 patch TRANSDERM 0900 patch 03/27/19 [Rx Confirmed 12/20/19] Ondansetron ODT TAB* [Zofran 4 MG Odt TAB*] 4 mg PO Q8H PRN tab 03/27/19 [Rx Confirmed 12/20/19] RiFAXimin* [Xifaxan*] 550 mg PO BID tab 03/27/19 [Rx Confirmed 12/20/19] levETIRAcetam TAB* [Keppra TAB*] 500 mg PO BID tab 03/27/19 [Rx Confirmed 12/19] traZODone TAB* [Desyrel TAB*] 50 mg PO BEDTIME #30 tab 03/27/19 [Rx Confirmed ] Lactulose* 45 ml PO BID 05/09/19 [History Confirmed 12/20/19] Omeprazole 20 mg PO BID 05/09/19 [History Confirmed 12/20/19] diphenhydrAMINE HCl [Benadryl Itch Stopping 2% GEL] 2 % TOPICAL Q8HR PRN [History Confirmed 12/20/19] Furosemide TAB* [Lasix TAB*] 40 mg PO DAILY #0 tab 05/10/19 [Rx Confirmed ] Lactulose* 30 ml PO BEDTIME udc 05/10/19 [Rx Confirmed 12/20/19] Spironolactone TAB* [Aldactone TAB 25 MG*] 100 mg PO DAILY #0 05/10/19 [Rx Confirmed 12/20/19] Magnesium Oxide TAB* [MagOx 400 TAB*] 400 mg PO DAILY 12/20/19 [History Confirmed 12/20/19] Midodrine 5 mg PO BID 12/20/19 [History Confirmed 12/20/19] PMH/Surg Hx/FS Hx/Imm Hx Endocrine/Hematology History: Reports: Hx Diabetes - elevated glucose after acute liver failure - diet controlled Denies: Hx Anticoagulant Therapy, Hx Thyroid Disease, Hx Anemia, Hx Unexplained Bleeding Cardiovascular History: Reports: Hx Hypercholesterolemia, Hx Hypertension Denies: Hx Aneurysm, Hx Angina, Hx Angioplasty, Hx Auto Implanted Cardiovert Defib, Hx Cardiac Arrest, Hx Cardiomegaly, Hx Congenital Heart Disease, Hx Congestive Heart Failure, Hx Coronary Artery Disease, Hx Deep Vein Thrombosis, Hx Embolism, Hx Hypotension, Hx Pacemaker/ICD, Hx Peripheral Vascular Disease, Hx Rheumatic Fever, Hx Syncope, Hx Valvular Heart Disease, Other Cardiovascular Problems/Disorders Respiratory History: Reports: Hx Asthma, Hx Chronic Bronchitis, Hx Seasonal Allergies - hay fever Denies: Hx Chronic Obstructive Pulmonary Disease (COPD), Hx Cystic Fibrosis, Hx Lung Cancer, Hx Pleural Effusion, Hx Pneumonia, Hx Pulmonary Edema, Hx Pulmonary Embolism, Hx Sleep Apnea, Other Respiratory Problems/Disorders GI History: Reports: Hx Cirrhosis, Hx Gall Bladder Disease, Hx Hiatal Hernia, Hx Ulcer Denies: Hx Crohn's Disease, Hx Diverticulosis, Hx Gastroesophageal Reflux Disease, Hx Gastrointestinal Bleed, Hx Irritable Bowel, Hx Jaundice, Hx Obstructive Bowel, Hx Ileostomy, Hx Pyloric Stenosis, Other GI Disorders History: Denies: Hx Dialysis, Hx Renal Disease Musculoskeletal History: Reports: Hx Arthritis - both knees, Hx Orthopedic Injury Denies: Hx Back Problems, Hx Bursitis, Hx Congenital Bone Abnormalities, Hx Fibromyalgia, Hx Gout, Hx Osteoporosis, Hx Scoliosis, Hx Tendonitis, Other Musculoskeletal History Sensory History: Reports: Hx Contacts or Glasses Denies: Hx Cataracts, Hx Eye Injury, Hx Eye Prosthesis, Hx Glaucoma, Hx Legally Blind, Hx Macular Degeneration, Hx Vision Problem, Hx Deafness, Hx Hearing Aid, Hx Hearing Problem, Other Sensory Impairments Opthamlomology History: Reports: Hx Contacts or Glasses Denies: Hx Cataracts, Hx Eye Injury, Hx Eye Prosthesis, Hx Glaucoma, Hx Legally Blind, Hx Macular Degeneration, Hx Vision Problem, Other Sensory Impairments Neurological History: Reports: Hx Headaches, Hx Seizures, Other Neuro Impairments/Disorders - Subdural Hematoma Denies: Hx Dementia Psychiatric History: Reports: Hx Depression, Hx Substance Abuse - ETOH Denies: Hx Anxiety, Hx Attention Deficit Hyperactivity Disorder, Hx Eating Disorder, Hx Panic Disorder, Hx Post Traumatic Stress Disorder, Hx Inpatient Treatment, Hx Community Mental Health Tx, Hx Schizophrenia, Hx Bipolar Disorder , Hx Suicide Attempt, Hx of Violent Episodes Against Others, Other Psychiatric Issues/Disorders - Cancer History Cancer Type, Location and Year: None reported - Surgical History Surgery Procedure, Year, and Place: RIGHT ANKLE ORIF. LEFT KNEE TENDON REPAIR. CHOLECYSTECTOMY. APPENDECTOMY. TONSILLECTOMY Hx Anesthesia Reactions: No Infectious Disease History: No Infectious Disease History: Reports: Hx of Known/Suspected MRSA Denies: Hx Clostridium Difficile, Hx Hepatitis, Hx Human Immunodeficiency Virus (HIV), Hx Shingles, Hx Tuberculosis, History Other Infectious Disease, Traveled Outside the [place] in Last 30 Days - Family History Known Family History: Positive: Non-Contributory Negative: Cardiac Disease, Diabetes - Social History Alcohol Use: None Alcohol Amount: 07/30/18 - states no use. Hx Substance Use: Yes Substance Use Type: Reports: None Substance Use Comment - Amount & Last Used: pt states he hasn't had a drink in 2 weeks Hx Tobacco Use: Yes Smoking Status (MU): Light Every Day Tobacco Smoker Type: Cigarettes Length of Time of Smoking/Using Tobacco: 5 years Have You Smoked in the Last Year: No Review of Systems Negative: Fever, Chills ENT: Other - sinus pressure last week Positive: Cough, Other - dyspnea All Other Systems Reviewed And Are Negative: Yes Physical Exam - Summary Physical Exam Summary: Appearance: The patient is well-nourished in no acute distress and in no acute pain. Skin: The skin is warm and dry, and skin color reflects adequate perfusion. HEENT: The head is normocephalic and atraumatic. The pupils are equal and reactive. The conjunctivae are clear and without drainage. Nares are patent and without drainage. Mouth reveals moist mucous membranes, and the throat is without erythema and exudate. The external ears are intact. The ear canals are patent and without drainage. The tympanic membranes are intact. Neck: The neck is supple with full range of motion and non-tender. There are no carotid bruits. There is no neck vein distension. Respiratory: Chest is non-tender. Lungs are clear to auscultation and breath sounds are symmetrical and equal. Cardiovascular: Heart is regular rate and rhythm. There is no murmur or rub auscultated. There is no peripheral edema and pulses are symmetrical and equal. Abdomen: The abdomen is non-tender. It is distended and tense. There are normal bowel sounds heard in all four quadrants and there is no organomegaly palpated. Musculoskeletal: There is no back tenderness noted. Extremities are non-tender with full range of motion. There is good capillary refill. There is no peripheral edema or calf tenderness elicited. Neurological: Patient is alert and oriented to person, place and time. The patient has symmetrical motor strength in all four extremities. Cranial nerves are grossly intact. Deep tendon reflexes are symmetrical and equal in all four extremities. Psychiatric: The patient has an appropriate affect and does not exhibit any anxiety or depression. Triage Information Reviewed: Yes Vital Signs On Initial Exam: Initial Vitals Temp Pulse Resp BP Pulse Ox 98.1 F 120 16 134/74 98 12/20/19 14:34 12/20/19 14:34 12/20/19 14:34 12/20/19 14:34 12/20/19 14:34 Vital Signs Reviewed: Yes Procedures - Sedation Patient Received Moderate/Deep Sedation with Procedure: No Diagnostics - Vital Signs Vital Signs Temp Pulse Resp BP Pulse Ox 12/20/19 14:34 98.1 F 120 16 134/74 98 - Laboratory Result Diagrams: 12/20/19 17:37 12/20/19 17:37 Lab Statement: Any lab studies that have been ordered have been reviewed, and results considered in the medical decision making process. - Radiology CXR Radiology Interpretation Completed By: Radiologist Summary of Radiographic Findings: IMPRESSION: No radiographic evidence of acute cardiopulmonary disease. An ED physician has reviewed this scan. - CT APCT CT Interpretation Completed By: Radiologist Summary of CT Findings: IMPRESSION: Large volume ascites seen throughout the abdomen and pelvis. Worsening cirrhotic appearance of the liver. An ED physician has reviewed this report. Disposition - Course Course Of Treatment: I think that his main problem is that he has so much ascites that he has difficulty with diaphragmatic excursion. However he does have pain and may very well have spontaneous bacterial overgrowth. I spoke with Dr. Douglas about admission to the hospital. - Diagnoses Provider Diagnoses: Alcoholic cirrhosis of liver with ascites Discharge ED - Sign-Out/Discharge Documenting (check all that apply): Patient Departure - Discharge Plan Condition: Stable Disposition: ADMITTED TO [facility] Referrals: Rosie Noriega MD [Primary Care Provider] - - Billing Disposition and Condition Condition: STABLE Disposition: Admitted to [facility] - Attestation Statements Document Initiated by Corey: Yes Documenting Scribe: Emmett Huber Provider For Whom Corey is Documenting (Include Credential): Dr. Ino Denis Scribkristian Attestation: Emmett Garay, scribed for Dr. Ino Denis on 12/20/19 at 2114. Scribe Documentation Reviewed: Yes Provider Attestation: The documentation as recorded by the shukriibEmmett townsend accurately reflects the service I personally performed and the decisions made by me, Dr. Ino Denis Status of Scribe Document: Viewed
[2019-12-20 17:54] LABS: ABS Eosinophils 0.3 10^3/ul (0-0.6); ABS Lymphocytes 1.1 10^3/ul (1.0-4.8); ABS Monocytes 1.1 10^3/ul (0-0.8); ABS Neutrophils 3.6 10^3/ul (1.5-7.7); Eosinophil % 4.5 %; Hematocrit 29 % (42-52); Hemoglobin 9.2 g/dL (14.0-18.0); Lymphocyte % 17.3 %; Mean Corpuscular HGB Conc 32 g/dL (31-36); Mean Corpuscular Hemoglobin 30 pg (27-31); Mean Corpuscular Volume 95 fL (80-94); Mean Platelet Volume 7.1 fL (7.4-10.4); Nucleated Red Blood Cells % 0.1; Platelet Count 162 10^3/uL (150-450); Red Blood Count 3.02 10^6 /uL (4.18-5.48); Red Cell Distribution Width 25 % (10-15); White Blood Count 6.1 10^3/uL (3.5-10.8)
[2019-12-20] MEDS ORDERED: HYDROmorphone INJ1* 1 MG/ML SYRINGE IV SLOW PU ONE (17:54)
[2019-12-20] MEDS ORDERED: Ondansetron INJ* 2 MG/ML VIAL IV ONE (17:54)
[2019-12-20 17:56] LABS: INR 1.8 (0.82-1.09)
[2019-12-20] MEDS ORDERED: Ondansetron ODT TAB* 4 MG PO ONE (17:56)
[2019-12-20] MEDS ORDERED: oxyCODONE/Acetamin 5/325 MG* TAB PO ONE (17:56)
[2019-12-20 18:06] LABS: Troponin I 0.01 ng/mL (<0.03)
[2019-12-20 18:07] LABS: Albumin 2.3 g/dL (3.2-5.2); Albumin/Globulin Ratio 0.6 (1-3); BUN/Creatinine Ratio 7.1 (8-20); Calcium 8.6 mg/dL (8.6-10.3); EGFR African American 93.8 (>60); EGFR Non-African American 77.5 (>60); Globulin 4.1 g/dL (2-4); Potassium 4.2 mmol/L (3.5-5.0); Total Bilirubin 5.4 mg/dL (0.2-1.0); Total Protein 6.4 g/dL (6.4-8.9)
[2019-12-20 20:13] LABS: C Reactive Protein 14.54 mg/L (<8.01)
[2019-12-20] MEDS ORDERED: Ondansetron ODT TAB* 4 MG PO PRN (20:32)
[2019-12-20] MEDS ORDERED: Albuterol HFA INHALER* 8 gm MDI INH PRN (20:37)
[2019-12-20 21:03] LABS: Magnesium 1.8 mg/dL (1.9-2.7)
[2019-12-20] MEDS ORDERED: Magnesium Sulfate 2 GM IV* 2 GM/50 ML BAG IVPB ONE (21:44)
[2019-12-20] MEDS: HYDROmorphone TAB* 2 MG PO PRN (22:55)
[2019-12-20] MEDS: Gabapentin CAP(*) 300 MG PO SCH (23:48)
[2019-12-20] MEDS: traZODone TAB* 50 MG TAB PO SCH (23:48)
[2019-12-20] MEDS: Pantoprazole TAB * 40 MG TAB PO SCH (23:48)
[2019-12-20] MEDS: levETIRAcetam TAB* 500 MG PO SCH (23:48)
[2019-12-20] MEDS: RiFAXimin* 550 MG TAB PO SCH (23:49)
--- NOTE | 2019-12-20 23:49 | HP ---
HISTORY AND PHYSICAL: DATE OF ADMISSION: 12/20/19 ADMITTING PROVIDER: Donavon Douglas MD PRIMARY CARE PROVIDER: Dr. Rosie Noriega OUTPATIENT GI DOCTOR: Dr. Anyi Hoffman CHIEF COMPLAINT: Abdominal distention, weight gain, and progressive abdominal pain. HISTORY OF PRESENT ILLNESS: Jarad Mata is a 64-year-old male with past medical history of alcoholic cirrhosis, hepatic encephalopathy, hypertension, asthma, depression, seizures, stroke, umbilical hernia, conversion disorder, who has been intermittently drinking with last drink approximately 2 weeks ago. His chief complaint is progressive abdominal distention and pain that today was diffuse and worse than before. Of note he is a very poor historian and supplemental information was given by sister Cassandra in the room. He has had approximately 30 pounds weight gain in the last 2 months. He denies any fever or headache. He does have worsening shortness of breath that he attributes to the fluid buildup. He just saw his liver transplant doctor up in [place] on 12/16/19 and there was mention of possibly giving him a paracentesis and albumin infusions. The doctor was also furious that he had resumed drinking recently. They say that he has been drinking about 6 packs daily for a few months. Sister also says that he is not reliable in terms of taking his medications and he himself admits noncompliance to his lactulose. He has had a dry cough for approximately 4 to 5 days. He denies any travel. He has had some sinus congestion and bloody nose. His sister accounts that his heart rate has been elevated for the last month. He saw his primary care doctor, Dr. Noriega, approximately 2 to 3 weeks ago and his midodrine was increased from 2.5 twice a day to 5 twice a day. Initial workup in [facility] included a lactic acid of 5.1, INR of 1.80 , T bili of 5.4, creatinine of 0.98, sodium of 132. He had a CT abdomen, pelvis noncontrast, which showed large volume ascites throughout the abdomen and pelvis and worsening cirrhotic appearance of the liver. He was referred to hospitalist service for admission given his abdominal pain and decompensated cirrhosis. He was given Zofran and Percocet. He had been complaining of some nausea, but no vomiting. His last paracentesis was approximately early fall. At the last visit with Dr. Hoffman, he reports she was aggravated at him for missing appointments. PAST MEDICAL HISTORY: Alcoholic cirrhosis, hepatic encephalopathy, subdural hematoma, hypertension, asthma, depression, seizure following a stroke, conversion disorder, umbilical hernia, medication noncompliance. PAST SURGICAL HISTORY: Ankle surgery, appendectomy, tonsillectomy, adenoid removal, cholecystectomy, bilateral knee surgeries. HOME MEDICATIONS: (With some noncompliance noted) 1. Trazodone 50 mg p.o. q.h.s. 2. Keppra 500 mg p.o. b.i.d. 3. Benadryl 2% topical q.8 hours p.r.n. 4. BuSpar 5 mg p.o. b.i.d. 5. Triamcinolone nasal spray both nares daily. 6. Spironolactone 100 mg p.o. daily. 7. Ventolin 2 puffs inhaled q.4 hours p.r.n. 8. Tylenol 650 mg p.o. q.6 hours p.r.n. 9. Folic acid 1 mg p.o. daily. 10. Flonase 1 spray both nares daily. 11. Spironolactone 100 mg p.o. daily. 12. Ventolin 2 puffs inhaled q.4 hours p.r.n. 13. Tylenol 650 mg p.o. q.6 hours p.r.n. 14. Flonase 1 spray both nares daily. 15. Epinephrine 0.3 mg IM once p.r.n. 16. Duloxetine 60 mg p.o. daily. 17. Vitamin B12 tabs 500 mcg p.o. daily. 18. Magnesium oxide 400 mg p.o. daily. 19. Lidocaine patch 5% daily. 20. Lactulose 30 mL at bedtime and 45 mL twice during the day. 21. Gabapentin 300 mg p.o. at bedtime. 22. Lasix 40 mg p.o. daily. 23. Xifaxan 550 mg p.o. b.i.d. (Of note, sister says they have not been able to afford this, which costs $4000 a month and they are waiting on his Medicaid card for assistance with that.) 24. Zofran 4 mg p.o. q.8 hours. 25. Omeprazole 20 mg p.o. b.i.d. 26. Midodrine 5 mg p.o. b.i.d. ALLERGIES: SERTRALINE, rash and itch; LORAZEPAM "it puts me in a coma;" HYDROXYZINE, also thinks it puts him in a coma; BEE VENOM. FAMILY HISTORY: Mother of a stroke at age 52. Father is in the room, age 88 or 89, reportedly healthy. Sister has early hypothyroidism, ?diabetes (she did not mention the latter). SOCIAL HISTORY: The patient was a heavy drinker since the age of 18, last drink he attests is 12/04/19, had been drinking 6 packs daily for few months. He has few cigarettes a week. 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 He desires to be a full code. Medical surrogate is his sister, Cassandra. REVIEW OF SYSTEMS: A complete 14-point review of systems is negative except as per HPI. PHYSICAL EXAMINATION GENERAL APPEARANCE: Chronically ill appearing. VITAL SIGNS: Temperature 98.1, pulse rate 120, respiratory rate 16, satting 90 % on room air, blood pressure 134/74. HEENT: Normocephalic, atraumatic. Pupils equal, round, and reactive to light. Scleral icterus noted. LUNGS: Clear to auscultation bilaterally with no wheezing, rales, or rhonchi. CARDIOVASCULAR: Tachycardic, regular. No murmurs, rubs, or gallops. ABDOMEN: Massively distended and tense, but no rebound or guarding or pain with palpation, though he did get Percocet before exam. EXTREMITIES: There is 1 to 2+ pitting edema bilaterally in lower extremities. NEURO: He is oriented x3. He has asterixis. SKIN: Slight jaundice. DIAGNOSTIC STUDIES/LAB DATA: White count 6.1, hemoglobin 9.2, hematocrit 29, platelets 162. INR 1.80. Sodium 132, potassium 4.2, chloride 99, carbon dioxide 23, BUN 7, creatinine 0.98, glucose 109, lactic acid 5.1, calcium 8.6. Total bili is 5.4, AST 30, ALT 22, alk phos 159, troponin 0.01, CRP added on 14.5, BNP 48, albumin 2.3. Imaging: Chest x-ray demonstrated no acute cardiopulmonary disease. CT abdomen, pelvis noncontrast showed large volume ascites and worsening cirrhosis. EKG demonstrates sinus tachycardia, rate 116, no ST elevations or depressions. Normal axis. QTc is 485, poor R-wave progression, flat T waves anteroseptally. ASSESSMENT AND PLAN: Jarad Mata is a 64-year-old male with past history of decompensated alcoholic cirrhosis with hepatic encephalopathy and intermittent medication noncompliance, who had resumed drinking 6 packs nightly for a few months until 2.5 weeks ago (last drink approximately 12/04/19 if to be believed) . he is presenting with worsening abdominal distention, abdominal pain, weight gain, and lab abnormalities consistent with decompensated cirrhosis. He has also been tachycardic for the last month and he has seen both his primary care doctor and his transplant GI doctor since then. His lactic acid is quite elevated at 5.1 and his CRP is only modestly elevated. I believe he needs diagnostic and therapeutic paracentesis during this admission both to rule out SBP and for the patient's comfort. I am going to hold off on any empiric antibiotics for now given that he is in no current distress and is afebrile, and his tachycardia has been persistent for a month. He does not have any guarding or tenderness on exam currently. We will restart his lactulose, which he is intermittently noncompliant with. He does have asterixis on exam. I am waiting on an initial ammonia level. I am going to hold off spironolactone and lasix for now until I can see if I have the time to do paracentesis later tonight/tomorrow, but I consider restarting in the morning. Repeat lactic acid now, add a magnesium level, check LFTs, BMP, CBC daily. Continue the Zofran p.r.n. for nausea, continue for seizure disorder his Keppra. Decrease his duloxetine (he is on 60 mg daily), given his decompensated cirrhosis, I am going to cut that down to 40 a day. Monitor for any withdrawal symptoms from that. He is a full code. He can eat a low salt diet now. Physical therapy will be ordered. Medical surrogate is his sister. ADDENDUM: 5.7L of yellow ascites was removed 3/15 AM and 50 gm of 25% albumin given. [id number]/[facility] #: [id number] [facility]
[2019-12-21 05:04] LABS: ABS Eosinophils 0.3 10^3/ul (0-0.6); ABS Lymphocytes 1.1 10^3/ul (1.0-4.8); ABS Monocytes 0.9 10^3/ul (0-0.8); ABS Neutrophils 3.1 10^3/ul (1.5-7.7); Eosinophil % 5.8 %; Hematocrit 26 % (42-52); Hemoglobin 8.3 g/dL (14.0-18.0); Lymphocyte % 20.7 %; Mean Corpuscular HGB Conc 32 g/dL (31-36); Mean Corpuscular Hemoglobin 31 pg (27-31); Mean Corpuscular Volume 96 fL (80-94); Mean Platelet Volume 7.6 fL (7.4-10.4); Platelet Count 130 10^3/uL (150-450); Red Blood Count 2.66 10^6 /uL (4.18-5.48); Red Cell Distribution Width 25 % (10-15); White Blood Count 5.5 10^3/uL (3.5-10.8)
[2019-12-21 05:11] LABS: Albumin 2.1 g/dL (3.2-5.2); Albumin/Globulin Ratio 0.6 (1-3); BUN/Creatinine Ratio 7.6 (8-20); Calcium 8.3 mg/dL (8.6-10.3); EGFR Non-African American 61.9 (>60); Globulin 3.8 g/dL (2-4); Indirect Bilirubin 3.1 mg/dL (0.3-1.0); Potassium 4.6 mmol/L (3.5-5.0); Total Bilirubin 5.3 mg/dL (0.2-1.0); Total Protein 5.9 g/dL (6.4-8.9)
[2019-12-21] MEDS: HYDROmorphone TAB* 2 MG PO PRN ×2 (05:44→22:41)
--- NOTE | 2019-12-21 08:44 | BRIEFOPN ---
Brief Operative/Procedure Note - Operation Details Pre-Op Diagnosis: Decompensated Cirrhosis with Large volume ascites and abdominal pain Post-Op Diagnosis: Decompensated Cirrhosis with Large volume ascites and abdominal pain Procedures: Paracentesis, Diagnostic and Therapeutic. Surgeon(s)/Proceduralists: Donavon Douglas Anesthesia: 10 cc of lidocaine. Estimated Blood Loss: 5 cc Findings: 5.7L of yellow clear ascites removed. Labs pending. Complications: None.
[2019-12-21] MEDS: Albumin Human 25%* 25 GM/100 ML BTL IV SCH ×2 (11:08→12:59)
[2019-12-21] MEDS: Cyanocobalamin TAB* 500 MCG PO SCH (11:11)
[2019-12-21] MEDS: Pantoprazole TAB * 40 MG TAB PO SCH ×2 (11:11→22:46)
[2019-12-21] MEDS: Magnesium Oxide TAB* 400 MG PO SCH (11:12)
[2019-12-21] MEDS: Folic Acid TAB* 1 MG PO SCH (11:12)
[2019-12-21] MEDS: RiFAXimin* 550 MG TAB PO SCH ×2 (11:13→22:45)
[2019-12-21] MEDS: levETIRAcetam TAB* 500 MG PO SCH ×2 (11:13→22:46)
[2019-12-21] MEDS: DULoxetine DR CAP* 20 MG CAP.DR PO SCH (11:13)
[2019-12-21] MEDS: Fluticasone NASAL SPRAY 50MCG* 16 gm SPRAY BTL BOTH NARES SCH (11:16)
[2019-12-21 12:00] LABS: Body Fluid Source Peritonial Fluid
[2019-12-21 12:37] LABS: Body Fluid Mono 12 %
--- NOTE | 2019-12-21 17:10 | PN ---
Subjective Date of Service: 12/21/19 Interval History: Resting in bed on assessment. Reports symptoms that brought him to ED have improved since paracentesis. Denies abd pain, sob, nausea, vomiting. Patient alert and oriented. Objective Active Medications: Albuterol (Ventolin Hfa Inhaler*) 2 puff INH Q4H PRN PRN Reason: SHORTNESS OF BREATH Cyanocobalamin (Vitamin B12 Tab*) 500 mcg PO DAILY [facility] Last Admin: 12/21/19 11:11 Dose: 500 mcg Duloxetine HCl (Cymbalta Cap*) 40 mg PO DAILY [facility] Last Admin: 12/21/19 11:13 Dose: 40 mg Fluticasone Propionate (Flonase Nasal [place] 50mcg*) 1 spray BOTH NARES DAILY [facility] Last Admin: 12/21/19 11:16 Dose: 1 spray Folic Acid (Folvite Tab*) 1 mg PO DAILY [facility] Last Admin: 12/21/19 11:12 Dose: 1 mg Furosemide (Lasix Tab*) 40 mg PO DAILY [facility] Gabapentin (Neurontin Cap(*)) 300 mg PO BEDTIME [facility] Last Admin: 12/20/19 23:48 Dose: 300 mg Hydromorphone HCl (Dilaudid Tab*) 0.5 mg PO Q4H PRN PRN Reason: PAIN - MODERATE Lactulose (Lactulose*) 30 ml PO BEDTIME [facility] Last Admin: 12/20/19 23:47 Dose: 30 ml Lactulose (Lactulose*) 45 ml PO 0900,1400 [facility] Last Admin: 12/21/19 15:40 Dose: 45 ml Levetiracetam (Keppra Tab*) 500 mg PO BID [facility] Last Admin: 12/21/19 11:13 Dose: 500 mg Magnesium Oxide (Magox 400 Tab*) 400 mg PO DAILY [facility] Last Admin: 12/21/19 11:12 Dose: 400 mg Midodrine (Midodrine) 5 mg PO BID [facility]; Protocol Last Admin: 12/21/19 11:11 Dose: 5 mg Ondansetron HCl (Zofran Odt Tab*) 4 mg PO Q8H PRN PRN Reason: NAUSEA/VOMITING Pantoprazole Sodium (Protonix Tab*) 40 mg PO BID [facility] Last Admin: 12/21/19 11:11 Dose: 40 mg Rifaximin (Xifaxan*) 550 mg PO BID [facility] Last Admin: 12/21/19 11:13 Dose: 550 mg Spironolactone (Aldactone Tab*) 100 mg PO DAILY [facility] Trazodone HCl (Desyrel Tab*) 50 mg PO BEDTIME [facility] Last Admin: 12/20/19 23:48 Dose: 50 mg Vital Signs - 8 hr 12/21/19 12/21/19 12/21/19 10:13 10:28 10:43 Temperature Pulse Rate 109 113 Blood Pressure 133/64 143/72 133/49 (mmHg) O2 Sat by Pulse 91 92 Oximetry 12/21/19 12/21/19 12/21/19 10:58 11:00 11:10 Temperature 97.8 F Pulse Rate 109 111 Blood Pressure 140/70 (mmHg) O2 Sat by Pulse 93 91 Oximetry 12/21/19 12/21/19 12/21/19 11:23 11:25 11:27 Temperature 97.8 F Pulse Rate 108 109 Blood Pressure 104/37 128/64 (mmHg) O2 Sat by Pulse 94 93 Oximetry 12/21/19 12/21/19 12/21/19 11:43 11:58 12:00 Temperature Pulse Rate 111 106 107 Blood Pressure 133/69 131/74 (mmHg) O2 Sat by Pulse 96 94 94 Oximetry 12/21/19 12/21/19 12/21/19 12:14 12:43 12:58 Temperature Pulse Rate 124 124 Blood Pressure 114/54 107/65 122/78 (mmHg) O2 Sat by Pulse 92 88 Oximetry 12/21/19 12/21/19 12/21/19 13:00 13:20 13:24 Temperature 97.9 F 98.1 F Pulse Rate 113 113 Blood Pressure 122/74 (mmHg) O2 Sat by Pulse 94 95 Oximetry 12/21/19 12/21/19 12/21/19 14:00 14:13 15:00 Temperature Pulse Rate 109 113 110 Blood Pressure 125/75 (mmHg) O2 Sat by Pulse 94 95 94 Oximetry 12/21/19 12/21/19 12/21/19 15:13 15:15 16:00 Temperature 98.1 F Pulse Rate 113 107 Blood Pressure 112/58 (mmHg) O2 Sat by Pulse 95 95 Oximetry 12/21/19 12/21/19 12/21/19 16:13 16:25 16:37 Temperature Pulse Rate 113 110 110 Blood Pressure 123/55 89/56 136/66 (mmHg) O2 Sat by Pulse 95 92 95 Oximetry Oxygen Devices in Use Now: None Appearance: Comfortable Eyes: No Scleral Icterus Ears/Nose/Mouth/Throat: Clear Oropharnyx, Mucous Membranes Moist Neck: NL Appearance and Movements; NL JVP Respiratory: Symmetrical Chest Expansion and Respiratory Effort, Clear to Auscultation Cardiovascular: NL Sounds; No Murmurs; No JVD, - - Mild edema Abdominal: - - Abd distended, but not firm. BS+. No tenderness Extremities: No Clubbing, Cyanosis Skin: No Rash or Ulcers Neurological: Alert and Oriented x 3 Nutrition: Taking PO's Result Diagrams: 12/21/19 04:44 12/21/19 04:44 Additional Lab and Data: Laboratory Results - last 24 hr 12/20/19 12/20/19 12/20/19 17:37 17:37 17:37 WBC 6.1 RBC 3.02 L Hgb 9.2 L Hct 29 L MCV 95 H MCH 30 MCHC 32 RDW 25 H Plt Count 162 MPV 7.1 L Neut % (Auto) 58.6 Lymph % (Auto) 17.3 Foster % (Auto) 18.8 Eos % (Auto) 4.5 Baso % (Auto) 0.8 Absolute Neuts (auto) 3.6 Absolute Lymphs (auto) 1.1 Absolute Monos (auto) 1.1 H Absolute Eos (auto) 0.3 Absolute Basos (auto) 0.0 Absolute Nucleated RBC 0.0 Nucleated RBC % 0.1 INR (Anticoag Therapy) 1.80 H Sodium 132 L Potassium 4.2 Chloride 99 L Carbon Dioxide 23 Anion Gap 10 BUN 7 Creatinine 0.98 Est GFR ( Amer) 93.8 Est GFR (Non-Af Amer) 77.5 BUN/Creatinine Ratio 7.1 L Glucose 109 H Lactic Acid Calcium 8.6 Magnesium 1.8 L Total Bilirubin 5.40 H Direct Bilirubin Indirect Bilirubin AST 30 ALT 22 Alkaline Phosphatase 159 H Ammonia Troponin I 0.01 C-Reactive Protein 14.54 H B-Natriuretic Peptide Total Protein 6.4 Albumin 2.3 L Globulin 4.1 H Albumin/Globulin Ratio 0.6 L Fluid Source Fluid Volume Fluid Color Fluid Appearance Fluid WBC Fluid RBC Fluid Tot Cell Count Fluid Neutrophils Fluid Lymphocytes Fluid Monocytes 03/12/20/19 12/20/19 17:37 17:37 20:51 WBC RBC Hgb Hct MCV MCH MCHC RDW Plt Count MPV Neut % (Auto) Lymph % (Auto) Foster % (Auto) Eos % (Auto) Baso % (Auto) Absolute Neuts (auto) Absolute Lymphs (auto) Absolute Monos (auto) Absolute Eos (auto) Absolute Basos (auto) Absolute Nucleated RBC Nucleated RBC % INR (Anticoag Therapy) Sodium Potassium Chloride Carbon Dioxide Anion Gap BUN Creatinine Est GFR ( Amer) Est GFR (Non-Af Amer) BUN/Creatinine Ratio Glucose Lactic Acid 5.1 H* Calcium Magnesium Total Bilirubin Direct Bilirubin Indirect Bilirubin AST ALT Alkaline Phosphatase Ammonia 56 H Troponin I C-Reactive Protein B-Natriuretic Peptide 48 Total Protein Albumin Globulin Albumin/Globulin Ratio Fluid Source Fluid Volume Fluid Color Fluid Appearance Fluid WBC Fluid RBC Fluid Tot Cell Count Fluid Neutrophils Fluid Lymphocytes Fluid Monocytes 12/20/19 12/21/19 12/21/19 20:51 04:44 04:44 WBC RBC Hgb Hct MCV MCH MCHC RDW Plt Count MPV Neut % (Auto) Lymph % (Auto) Foster % (Auto) Eos % (Auto) Baso % (Auto) Absolute Neuts (auto) Absolute Lymphs (auto) Absolute Monos (auto) Absolute Eos (auto) Absolute Basos (auto) Absolute Nucleated RBC Nucleated RBC % INR (Anticoag Therapy) Sodium 129 L Potassium 4.6 Chloride 99 L Carbon Dioxide 25 Anion Gap 5 BUN 9 Creatinine 1.19 H Est GFR ( Amer) 75.0 Est GFR (Non-Af Amer) 61.9 BUN/Creatinine Ratio 7.6 L Glucose 141 H Lactic Acid 5.1 H* 1.6 Calcium 8.3 L Magnesium Total Bilirubin 5.30 H Direct Bilirubin 2.20 H Indirect Bilirubin 3.1 H AST 35 ALT 20 Alkaline Phosphatase 155 H Ammonia Troponin I C-Reactive Protein B-Natriuretic Peptide Total Protein 5.9 L Albumin 2.1 L Globulin 3.8 Albumin/Globulin Ratio 0.6 L Fluid Source Fluid Volume Fluid Color Fluid Appearance Fluid WBC Fluid RBC Fluid Tot Cell Count Fluid Neutrophils Fluid Lymphocytes Fluid Monocytes 12/21/19 12/21/19 04:44 08:00 WBC 5.5 RBC 2.66 L Hgb 8.3 L Hct 26 L MCV 96 H MCH 31 MCHC 32 RDW 25 H Plt Count 130 L MPV 7.6 Neut % (Auto) 56.9 Lymph % (Auto) 20.7 Foster % (Auto) 16.2 Eos % (Auto) 5.8 Baso % (Auto) 0.4 Absolute Neuts (auto) 3.1 Absolute Lymphs (auto) 1.1 Absolute Monos (auto) 0.9 H Absolute Eos (auto) 0.3 Absolute Basos (auto) 0.0 Absolute Nucleated RBC 0.0 Nucleated RBC % 0.0 INR (Anticoag Therapy) Sodium Potassium Chloride Carbon Dioxide Anion Gap BUN Creatinine Est GFR ( Amer) Est GFR (Non-Af Amer) BUN/Creatinine Ratio Glucose Lactic Acid Calcium Magnesium Total Bilirubin Direct Bilirubin Indirect Bilirubin AST ALT Alkaline Phosphatase Ammonia Troponin I C-Reactive Protein B-Natriuretic Peptide Total Protein Albumin Globulin Albumin/Globulin Ratio Fluid Source Peritonial fluid Fluid Volume 1040 Fluid Color Yellow Fluid Appearance Cloudy Fluid WBC 165 Fluid RBC 486 Fluid Tot Cell Count 100 Fluid Neutrophils 1 Fluid Lymphocytes 87 Fluid Monocytes 12 Microbiology and Other Data: Microbiology 12/21/19 08:20 Gram Stain - Final Body Fluid - Peritoneal Assess/Plan/Problems-Billing Assessment: 64 yr old male with pmh of alcoholic cirrhosis, hepatic encephalopathy, subdural hematoma, htn, asthma, depression, seizure, conversion do, noncompliance; who presented to the ED with abd distention, weight gain, and abd pain - Patient Problems (1) Alcoholic cirrhosis of liver with ascites Comment: - Abd tapped this morning by Dr Douglas and 5.7 liters removed. - Peritoneal WBC less than 250 therefore abx not ordered at this time. - Billirubin above patient's baseline. Recheck tomorrow - Protein and albumin low. Received 2 units of albumin today. - Ammonia 56. Cont Lactulose (home dose) - Aldactone and Lasix (resume tomorrow) (2) Abdominal pain Comment: - Resolved after tap (3) Hepatic encephalopathy Comment: - Alert and oriented. - Resume Lactulose tomorrow - Ammonia 56 - Continue Rifaximin. (4) Alcohol abuse Comment: - Reports he has been drinking a 6 pack a week. - No signs of withdrawal - WAM monitoring ordered with no meds, but instead instructions to call if score > 9 (5) Tachycardia Comment: - Has been present for about a month and has seen PCP and liver specialist. - Cont tele - Asymptomatic (6) Seizures Comment: - Seizure Precautions - Continue Keppra (7) DVT prophylaxis Comment: - SCDs. Attending: Guillermo Marie
[2019-12-21] MEDS: Gabapentin CAP(*) 300 MG PO SCH (22:44)
[2019-12-21] MEDS: traZODone TAB* 50 MG TAB PO SCH (22:46)
[2019-12-22 06:09] LABS: ABS Eosinophils 0.4 10^3/ul (0-0.6); ABS Monocytes 0.7 10^3/ul (0-0.8); ABS Neutrophils 2.6 10^3/ul (1.5-7.7); Eosinophil % 8.1 %; Hematocrit 24 % (42-52); Hemoglobin 7.7 g/dL (14.0-18.0); Lymphocyte % 20.7 %; Mean Corpuscular HGB Conc 33 g/dL (31-36); Mean Corpuscular Hemoglobin 31 pg (27-31); Mean Corpuscular Volume 96 fL (80-94); Mean Platelet Volume 7.2 fL (7.4-10.4); Nucleated Red Blood Cells % 0.1; Platelet Count 120 10^3/uL (150-450); Red Blood Count 2.46 10^6 /uL (4.18-5.48); Red Cell Distribution Width 24 % (10-15); White Blood Count 4.6 10^3/uL (3.5-10.8)
[2019-12-22 06:25] LABS: Albumin/Globulin Ratio 0.6 (1-3); BUN/Creatinine Ratio 8.9 (8-20); Calcium 8.2 mg/dL (8.6-10.3); EGFR African American 90.6 (>60); EGFR Non-African American 74.9 (>60); Globulin 3.5 g/dL (2-4); Potassium 4.1 mmol/L (3.5-5.0); Total Bilirubin 3.7 mg/dL (0.2-1.0); Total Protein 5.5 g/dL (6.4-8.9)
[2019-12-22] MEDS: HYDROmorphone TAB* 2 MG PO PRN (08:45)
[2019-12-22] MEDS: DULoxetine DR CAP* 20 MG CAP.DR PO SCH (08:46)
[2019-12-22] MEDS: Magnesium Oxide TAB* 400 MG PO SCH (08:47)
[2019-12-22] MEDS: Pantoprazole TAB * 40 MG TAB PO SCH ×2 (08:48→20:35)
[2019-12-22] MEDS: levETIRAcetam TAB* 500 MG PO SCH ×2 (08:48→20:35)
[2019-12-22] MEDS: Folic Acid TAB* 1 MG PO SCH (08:48)
[2019-12-22] MEDS: RiFAXimin* 550 MG TAB PO SCH ×2 (08:48→20:35)
[2019-12-22] MEDS: Spironolactone TAB* 25 MG PO SCH (08:49)
[2019-12-22] MEDS: Cyanocobalamin TAB* 500 MCG PO SCH (08:49)
[2019-12-22] MEDS: Fluticasone NASAL SPRAY 50MCG* 16 gm SPRAY BTL BOTH NARES SCH (08:50)
[2019-12-22] MEDS ORDERED: Furosemide TAB* 40 MG PO SCH (09:00)
--- NOTE | 2019-12-22 12:22 | PN ---
Subjective Date of Service: 12/22/19 Interval History: He was drowsy but arousable to voice. Noted dried blood in left nares. Denied lightheadedness, dizziness, chest pain, palpitations, abdominal pain, nausea, vomiting. Discussed at length his take on his health situation, he realizes that his decompensated cirrhosis is directly correlated to his drinking and that he realizes that should he continue to drink, it will likely cause in the short term. Family History: Unchanged from Admission Social History: Unchanged from Admission Past Medical History: Unchanged from Admission Objective Active Medications: Albuterol (Ventolin Hfa Inhaler*) 2 puff INH Q4H PRN PRN Reason: SHORTNESS OF BREATH Cyanocobalamin (Vitamin B12 Tab*) 500 mcg PO DAILY [facility] Last Admin: 12/22/19 08:49 Dose: 500 mcg Duloxetine HCl (Cymbalta Cap*) 40 mg PO DAILY [facility] Last Admin: 12/22/19 08:46 Dose: 40 mg Fluticasone Propionate (Flonase Nasal [place] 50mcg*) 1 spray BOTH NARES DAILY [facility] Last Admin: 12/22/19 08:50 Dose: 1 spray Folic Acid (Folvite Tab*) 1 mg PO DAILY [facility] Last Admin: 12/22/19 08:48 Dose: 1 mg Furosemide (Lasix Tab*) 40 mg PO DAILY [facility] Last Admin: 12/22/19 08:47 Dose: 40 mg Gabapentin (Neurontin Cap(*)) 300 mg PO BEDTIME [facility] Last Admin: 12/21/19 22:44 Dose: 300 mg Hydromorphone HCl (Dilaudid Tab*) 0.5 mg PO Q4H PRN PRN Reason: PAIN - MODERATE Last Admin: 12/22/19 08:45 Dose: 0.5 mg Lactulose (Lactulose*) 30 ml PO BEDTIME [facility] Last Admin: 12/21/19 22:44 Dose: 30 ml Lactulose (Lactulose*) 45 ml PO 0900,1400 [facility] Last Admin: 12/22/19 08:50 Dose: 45 ml Levetiracetam (Keppra Tab*) 500 mg PO BID [facility] Last Admin: 12/22/19 08:48 Dose: 500 mg Magnesium Oxide (Magox 400 Tab*) 400 mg PO DAILY [facility] Last Admin: 12/22/19 08:47 Dose: 400 mg Midodrine (Midodrine) 5 mg PO BID [facility]; Protocol Last Admin: 12/22/19 08:46 Dose: 5 mg Ondansetron HCl (Zofran Odt Tab*) 4 mg PO Q8H PRN PRN Reason: NAUSEA/VOMITING Pantoprazole Sodium (Protonix Tab*) 40 mg PO BID [facility] Last Admin: 12/22/19 08:48 Dose: 40 mg Propranolol HCl (Inderal 10 Mg Tab) 10 mg PO TID [facility] Rifaximin (Xifaxan*) 550 mg PO BID [facility] Last Admin: 12/22/19 08:48 Dose: 550 mg Spironolactone (Aldactone Tab*) 100 mg PO DAILY [facility] Last Admin: 12/22/19 08:49 Dose: 100 mg Trazodone HCl (Desyrel Tab*) 50 mg PO BEDTIME [facility] Last Admin: 12/21/19 22:46 Dose: 50 mg Vital Signs - 8 hr 12/22/19 12/22/19 12/22/19 05:12 05:36 07:56 Temperature 97.3 F 97.3 F Pulse Rate 105 110 Respiratory 16 16 18 Rate Blood Pressure 126/60 130/78 (mmHg) O2 Sat by Pulse 96 96 Oximetry 12/22/19 12/22/19 12/22/19 08:45 08:58 11:00 Temperature 97.5 F Pulse Rate 118 Respiratory 18 18 20 Rate Blood Pressure 127/59 (mmHg) O2 Sat by Pulse 100 Oximetry 12/22/19 11:06 Temperature Pulse Rate Respiratory 20 Rate Blood Pressure (mmHg) O2 Sat by Pulse Oximetry Oxygen Devices in Use Now: None Appearance: This is a chronically ill looking, jaundiced gentleman seen resting in bed, no acute distress. Eyes: No Scleral Icterus, PERRLA Ears/Nose/Mouth/Throat: NL Teeth, Lips, Gums, Clear Oropharnyx, Mucous Membranes Moist Neck: NL Appearance and Movements; NL JVP, Trachea Midline Respiratory: Symmetrical Chest Expansion and Respiratory Effort, Clear to Auscultation Cardiovascular: NL Sounds; No Murmurs; No JVD, RRR, No Edema Abdominal: NL Sounds; No Tenderness; No Distention Lymphatic: No Cervical Adenopathy Extremities: No Edema, No Clubbing, Cyanosis Skin: No Rash or Ulcers, No Nodules or Sclerosis, - - Skin is jaundiced. Neurological: Alert and Oriented x 3, NL Sensation Lines/Tubes/Other Access: Clean, Dry and Intact Peripheral IV Result Diagrams: 12/23/19 05:39 12/23/19 05:39 Additional Lab and Data: Laboratory Results - last 24 hr 12/20/19 12/20/19 12/20/19 17:37 17:37 17:37 WBC 6.1 RBC 3.02 L Hgb 9.2 L Hct 29 L MCV 95 H MCH 30 MCHC 32 RDW 25 H Plt Count 162 MPV 7.1 L Neut % (Auto) 58.6 Lymph % (Auto) 17.3 [place] % (Auto) 18.8 Eos % (Auto) 4.5 Baso % (Auto) 0.8 Absolute Neuts (auto) 3.6 Absolute Lymphs (auto) 1.1 Absolute Monos (auto) 1.1 H Absolute Eos (auto) 0.3 Absolute Basos (auto) 0.0 Absolute Nucleated RBC 0.0 Nucleated RBC % 0.1 INR (Anticoag Therapy) 1.80 H Sodium 132 L Potassium 4.2 Chloride 99 L Carbon Dioxide 23 Anion Gap 10 BUN 7 Creatinine 0.98 Est GFR ( Amer) 93.8 Est GFR (Non-Af Amer) 77.5 BUN/Creatinine Ratio 7.1 L Glucose 109 H Lactic Acid Calcium 8.6 Magnesium 1.8 L Total Bilirubin 5.40 H Direct Bilirubin Indirect Bilirubin AST 30 ALT 22 Alkaline Phosphatase 159 H Ammonia Troponin I 0.01 C-Reactive Protein 14.54 H B-Natriuretic Peptide Total Protein 6.4 Albumin 2.3 L Globulin 4.1 H Albumin/Globulin Ratio 0.6 L Fluid Source Fluid Volume Fluid Color Fluid Appearance Fluid WBC Fluid RBC Fluid Tot Cell Count Fluid Neutrophils Fluid Lymphocytes Fluid Monocytes 12/20/19 12/20/19 12/20/19 17:37 17:37 20:51 WBC RBC Hgb Hct MCV MCH MCHC RDW Plt Count MPV Neut % (Auto) Lymph % (Auto) [place] % (Auto) Eos % (Auto) Baso % (Auto) Absolute Neuts (auto) Absolute Lymphs (auto) Absolute Monos (auto) Absolute Eos (auto) Absolute Basos (auto) Absolute Nucleated RBC Nucleated RBC % INR (Anticoag Therapy) Sodium Potassium Chloride Carbon Dioxide Anion Gap BUN Creatinine Est GFR ( Amer) Est GFR (Non-Af Amer) BUN/Creatinine Ratio Glucose Lactic Acid 5.1 H* Calcium Magnesium Total Bilirubin Direct Bilirubin Indirect Bilirubin AST ALT Alkaline Phosphatase Ammonia 56 H Troponin I C-Reactive Protein B-Natriuretic Peptide 48 Total Protein Albumin Globulin Albumin/Globulin Ratio Fluid Source Fluid Volume Fluid Color Fluid Appearance Fluid WBC Fluid RBC Fluid Tot Cell Count Fluid Neutrophils Fluid Lymphocytes Fluid Monocytes 12/20/19 12/21/19 12/21/19 20:51 04:44 04:44 WBC RBC Hgb Hct MCV MCH MCHC RDW Plt Count MPV Neut % (Auto) Lymph % (Auto) [place] % (Auto) Eos % (Auto) Baso % (Auto) Absolute Neuts (auto) Absolute Lymphs (auto) Absolute Monos (auto) Absolute Eos (auto) Absolute Basos (auto) Absolute Nucleated RBC Nucleated RBC % INR (Anticoag Therapy) Sodium 129 L Potassium 4.6 Chloride 99 L Carbon Dioxide 25 Anion Gap 5 BUN 9 Creatinine 1.19 H Est GFR ( Amer) 75.0 Est GFR (Non-Af Amer) 61.9 BUN/Creatinine Ratio 7.6 L Glucose 141 H Lactic Acid 5.1 H* 1.6 Calcium 8.3 L Magnesium Total Bilirubin 5.30 H Direct Bilirubin 2.20 H Indirect Bilirubin 3.1 H AST 35 ALT 20 Alkaline Phosphatase 155 H Ammonia Troponin I C-Reactive Protein B-Natriuretic Peptide Total Protein 5.9 L Albumin 2.1 L Globulin 3.8 Albumin/Globulin Ratio 0.6 L Fluid Source Fluid Volume Fluid Color Fluid Appearance Fluid WBC Fluid RBC Fluid Tot Cell Count Fluid Neutrophils Fluid Lymphocytes Fluid Monocytes 12/21/19 12/21/19 04:44 08:00 WBC 5.5 RBC 2.66 L Hgb 8.3 L Hct 26 L MCV 96 H MCH 31 MCHC 32 RDW 25 H Plt Count 130 L MPV 7.6 Neut % (Auto) 56.9 Lymph % (Auto) 20.7 [place] % (Auto) 16.2 Eos % (Auto) 5.8 Baso % (Auto) 0.4 Absolute Neuts (auto) 3.1 Absolute Lymphs (auto) 1.1 Absolute Monos (auto) 0.9 H Absolute Eos (auto) 0.3 Absolute Basos (auto) 0.0 Absolute Nucleated RBC 0.0 Nucleated RBC % 0.0 INR (Anticoag Therapy) Sodium Potassium Chloride Carbon Dioxide Anion Gap BUN Creatinine Est GFR ( Amer) Est GFR (Non-Af Amer) BUN/Creatinine Ratio Glucose Lactic Acid Calcium Magnesium Total Bilirubin Direct Bilirubin Indirect Bilirubin AST ALT Alkaline Phosphatase Ammonia Troponin I C-Reactive Protein B-Natriuretic Peptide Total Protein Albumin Globulin Albumin/Globulin Ratio Fluid Source Peritonial fluid Fluid Volume 1040 Fluid Color Yellow Fluid Appearance Cloudy Fluid WBC 165 Fluid RBC 486 Fluid Tot Cell Count 100 Fluid Neutrophils 1 Fluid Lymphocytes 87 Fluid Monocytes 12 Microbiology and Other Data: Microbiology 12/21/19 08:20 Gram Stain - Final Body Fluid - Peritoneal Assess/Plan/Problems-Billing Assessment: 64 yr old male with pmh of alcoholic cirrhosis, hepatic encephalopathy, subdural hematoma, htn, asthma, depression, seizure, conversion do, noncompliance; who presented to the ED with abd distention, weight gain, and abd pain - Patient Problems (1) Tachycardia Current Visit: Yes Status: Acute Code(s): R00.0 - TACHYCARDIA, UNSPECIFIED SNOMED Code(s): 9055110 Comment: - Started on propranolol TID. Feel this is likely due to being intravascularly dry. - Has been present for about a month and has seen PCP and liver specialist. - Cont tele - Asymptomatic (2) Alcoholic cirrhosis of liver with ascites Current Visit: No Status: Acute Code(s): K70.31 - ALCOHOLIC CIRRHOSIS OF LIVER WITH ASCITES SNOMED Code(s): 335968932 Comment: - Abd tapped on 12/21/[address] Douglas and 5.7 liters removed. - Peritoneal WBC less than 250 therefore abx not ordered at this time. - Billirubin improving - Received 2 units albumin after tap. - Ammonia 56. Cont Lactulose (home dose) - Continue aldactone and Lasix (3) Elevated lactic acid level Current Visit: No Status: Acute Code(s): R79.89 - OTHER SPECIFIED ABNORMAL FINDINGS OF BLOOD CHEMISTRY SNOMED Code(s): 3282143 Comment: - Persistently elevated with no clear source for infection - Trending down with IVF - Likely 2/2 metabolic disturbances from liver failure (4) Hepatic encephalopathy Current Visit: No Status: Acute Code(s): K72.90 - HEPATIC FAILURE, UNSPECIFIED WITHOUT COMA SNOMED Code(s): 72800997 Comment: - Alert and oriented. - Continue Lactulose - Ammonia 56 - Continue Rifaximin. (5) DVT prophylaxis Current Visit: No Status: Acute Onset Date: 11/02/14 Code(s): PJY3259 - SNOMED Code(s): 354282080 Comment: - SCDs. (6) Full code status Current Visit: No Status: Acute Onset Date: 11/02/14 Code(s): Z78.9 - OTHER SPECIFIED HEALTH STATUS SNOMED Code(s): 212629881 Status and Disposition: Dispo: Inpatient admit Condition: Guarded. Attending: Guillermo Marie
[2019-12-22] MEDS: Gabapentin CAP(*) 300 MG PO SCH (20:35)
[2019-12-22] MEDS: traZODone TAB* 50 MG TAB PO SCH (20:35)
[2019-12-23 05:49] LABS: ABS Eosinophils 0.4 10^3/ul (0-0.6); ABS Lymphocytes 0.8 10^3/ul (1.0-4.8); ABS Monocytes 0.8 10^3/ul (0-0.8); ABS Neutrophils 3.3 10^3/ul (1.5-7.7); Eosinophil % 7.8 %; Hematocrit 27 % (42-52); Hemoglobin 8.5 g/dL (14.0-18.0); Lymphocyte % 15.7 %; Mean Corpuscular HGB Conc 31 g/dL (31-36); Mean Corpuscular Hemoglobin 31 pg (27-31); Mean Corpuscular Volume 98 fL (80-94); Mean Platelet Volume 7.7 fL (7.4-10.4); Nucleated Red Blood Cells % 0.1; Platelet Count 114 10^3/uL (150-450); Red Blood Count 2.77 10^6 /uL (4.18-5.48); Red Cell Distribution Width 25 % (10-15); White Blood Count 5.4 10^3/uL (3.5-10.8)
[2019-12-23 06:08] LABS: ALT 18 U/L (7-52); AST 28 U/L (13-39); Albumin 2.2 g/dL (3.2-5.2); Albumin/Globulin Ratio 0.6 (1-3); Alkaline Phosphatase 142 U/L (34-104); Anion Gap 5 mmol/L (2-11); Blood Urea Nitrogen 9 mg/dL (6-24); CO2 Carbon Dioxide 25 mmol/L (22-32); Calcium 8.5 mg/dL (8.6-10.3); Chloride 97 mmol/L (101-111); EGFR African American 80.4 (>60); EGFR Non-African American 66.4 (>60); Globulin 3.6 g/dL (2-4); Glucose 114 mg/dL (70-100); Indirect Bilirubin 2.3 mg/dL (0.3-1.0); Potassium 4.1 mmol/L (3.5-5.0); Sodium 127 mmol/L (135-145); Total Protein 5.8 g/dL (6.4-8.9)
[2019-12-23 06:37] LABS: % Iron Saturation 10 % (15-55); Iron 23 ug/dL (50-212); Total Iron Binding Capacity 220 mcg/dL (250-450); Transferrin 157 mg/dL (203-362)
[2019-12-23 06:58] LABS: Ferritin 24.3 ng/mL (24-336)
[2019-12-23] MEDS: Magnesium Oxide TAB* 400 MG PO SCH (08:56)
[2019-12-23] MEDS: Cyanocobalamin TAB* 500 MCG PO SCH (08:56)
[2019-12-23] MEDS: Folic Acid TAB* 1 MG PO SCH (08:57)
[2019-12-23] MEDS: Spironolactone TAB* 25 MG PO SCH (08:57)
[2019-12-23] MEDS: Pantoprazole TAB * 40 MG TAB PO SCH ×2 (08:58→21:50)
[2019-12-23] MEDS: DULoxetine DR CAP* 20 MG CAP.DR PO SCH (08:58)
[2019-12-23] MEDS: levETIRAcetam TAB* 500 MG PO SCH ×2 (08:58→21:50)
[2019-12-23] MEDS: RiFAXimin* 550 MG TAB PO SCH ×2 (08:58→21:51)
[2019-12-23] MEDS: Fluticasone NASAL SPRAY 50MCG* 16 gm SPRAY BTL BOTH NARES SCH (08:58)
[2019-12-23] MEDS: HYDROmorphone TAB* 2 MG PO PRN ×3 (08:58→21:49)
[2019-12-23] MEDS: Ferrous Sulfate TAB* 325 MG PO SCH (11:11)
[2019-12-23] MEDS ORDERED: Ibuprofen TAB* 600 MG PO ONE (11:27)
[2019-12-23 15:27] LABS: Fluid Type, Albumin ASCITES; Fluid Type, Protein, Total ASCITES
--- NOTE | 2019-12-23 17:32 | PN ---
Subjective Date of Service: 12/23/19 Interval History: Patient was feeling better today than he did yesterday, more energetic. Reported that at times he becomes dizzy, but instead of the room spinning, it is as if the bed he is laying on goes up the wall, onto the ceiling, and he is looking down on the ground. Denied having such symptoms in the past few days, states it is worse when his ammonia level is elevated. Denies lightheadedness, chest pain, palpitations, shortness of breath, abdominal pain, nausea, vomiting , issues moving bowel or bladder. Paracentesis site is actively leaking serosanguineous fluid. Family History: Unchanged from Admission Social History: Unchanged from Admission Past Medical History: Unchanged from Admission Objective Active Medications: Albuterol (Ventolin Hfa Inhaler*) 2 puff INH Q4H PRN PRN Reason: SHORTNESS OF BREATH Cyanocobalamin (Vitamin B12 Tab*) 500 mcg PO DAILY [facility] Last Admin: 12/23/19 08:56 Dose: 500 mcg Duloxetine HCl (Cymbalta Cap*) 40 mg PO DAILY [facility] Last Admin: 12/23/19 08:58 Dose: 40 mg Ferrous Sulfate (Ferrous Sulfate Tab*) 325 mg PO DAILY [facility] Last Admin: 12/23/19 11:11 Dose: 325 mg Fluticasone Propionate (Flonase Nasal [place] 50mcg*) 1 spray BOTH NARES DAILY [facility] Last Admin: 12/23/19 08:58 Dose: 1 spray Folic Acid (Folvite Tab*) 1 mg PO DAILY [facility] Last Admin: 12/23/19 08:57 Dose: 1 mg Gabapentin (Neurontin Cap(*)) 300 mg PO BEDTIME [facility] Last Admin: 12/22/19 20:35 Dose: 300 mg Hydromorphone HCl (Dilaudid Tab*) 0.5 mg PO Q4H PRN PRN Reason: PAIN - MODERATE Last Admin: 12/23/19 17:14 Dose: 0.5 mg Lactulose (Lactulose*) 30 ml PO BEDTIME [facility] Last Admin: 12/22/19 20:34 Dose: 30 ml Lactulose (Lactulose*) 45 ml PO 0900,1400 [facility] Last Admin: 12/23/19 14:06 Dose: 45 ml Levetiracetam (Keppra Tab*) 500 mg PO BID [facility] Last Admin: 12/23/19 08:58 Dose: 500 mg Magnesium Oxide (Magox 400 Tab*) 400 mg PO DAILY [facility] Last Admin: 12/23/19 08:56 Dose: 400 mg Midodrine (Midodrine) 5 mg PO BID [facility]; Protocol Last Admin: 12/23/19 08:56 Dose: 5 mg Ondansetron HCl (Zofran Odt Tab*) 4 mg PO Q8H PRN PRN Reason: NAUSEA/VOMITING Pantoprazole Sodium (Protonix Tab*) 40 mg PO BID [facility] Last Admin: 12/23/19 08:58 Dose: 40 mg Propranolol HCl (Inderal 10 Mg Tab) 10 mg PO TID [facility] Last Admin: 12/23/19 14:09 Dose: 10 mg Rifaximin (Xifaxan*) 550 mg PO BID [facility] Last Admin: 12/23/19 08:58 Dose: 550 mg Spironolactone (Aldactone Tab*) 100 mg PO DAILY [facility] Last Admin: 12/23/19 08:57 Dose: 100 mg Trazodone HCl (Desyrel Tab*) 50 mg PO BEDTIME [facility] Last Admin: 12/22/19 20:35 Dose: 50 mg Vital Signs - 8 hr 12/23/19 12/23/19 12/23/19 10:33 10:46 14:14 Temperature 97.8 F 98.1 F Pulse Rate 76 78 Respiratory 20 20 20 Rate Blood Pressure 92/53 120/60 (mmHg) O2 Sat by Pulse 97 98 Oximetry 12/23/19 17:14 Temperature Pulse Rate Respiratory 16 Rate Blood Pressure (mmHg) O2 Sat by Pulse Oximetry Oxygen Devices in Use Now: None Appearance: This is a chronically ill, jaundiced gentleman seen sitting up in a chair, no acute distress. Eyes: No Scleral Icterus, PERRLA Ears/Nose/Mouth/Throat: NL Teeth, Lips, Gums, Clear Oropharnyx, Mucous Membranes Moist Neck: NL Appearance and Movements; NL JVP, Trachea Midline Respiratory: Symmetrical Chest Expansion and Respiratory Effort, Clear to Auscultation Cardiovascular: NL Sounds; No Murmurs; No JVD, RRR, - - +1 pitting edema to bilateral LE. Abdominal: NL Sounds; No Tenderness; No Distention, - - Abdomen distended, firmer in bilateral upper quadrants than lower, normoactive +BSx4. Lymphatic: No Cervical Adenopathy Extremities: No Clubbing, Cyanosis Skin: No Nodules or Sclerosis, - - Multiple small open areas to upper chest and arms from picking. Neurological: Alert and Oriented x 3 Lines/Tubes/Other Access: Clean, Dry and Intact Peripheral IV Result Diagrams: 12/24/19 08:50 12/24/19 05:05 Additional Lab and Data: Laboratory Results - last 24 hr 12/20/19 12/20/19 12/20/19 17:37 17:37 17:37 WBC 6.1 RBC 3.02 L Hgb 9.2 L Hct 29 L MCV 95 H MCH 30 MCHC 32 RDW 25 H Plt Count 162 MPV 7.1 L Neut % (Auto) 58.6 Lymph % (Auto) 17.3 [place] % (Auto) 18.8 Eos % (Auto) 4.5 Baso % (Auto) 0.8 Absolute Neuts (auto) 3.6 Absolute Lymphs (auto) 1.1 Absolute Monos (auto) 1.1 H Absolute Eos (auto) 0.3 Absolute Basos (auto) 0.0 Absolute Nucleated RBC 0.0 Nucleated RBC % 0.1 INR (Anticoag Therapy) 1.80 H Sodium 132 L Potassium 4.2 Chloride 99 L Carbon Dioxide 23 Anion Gap 10 BUN 7 Creatinine 0.98 Est GFR ( Amer) 93.8 Est GFR (Non-Af Amer) 77.5 BUN/Creatinine Ratio 7.1 L Glucose 109 H Lactic Acid Calcium 8.6 Magnesium 1.8 L Total Bilirubin 5.40 H Direct Bilirubin Indirect Bilirubin AST 30 ALT 22 Alkaline Phosphatase 159 H Ammonia Troponin I 0.01 C-Reactive Protein 14.54 H B-Natriuretic Peptide Total Protein 6.4 Albumin 2.3 L Globulin 4.1 H Albumin/Globulin Ratio 0.6 L Fluid Source Fluid Volume Fluid Color Fluid Appearance Fluid WBC Fluid RBC Fluid Tot Cell Count Fluid Neutrophils Fluid Lymphocytes Fluid Monocytes 12/20/19 12/20/19 12/20/19 17:37 17:37 20:51 WBC RBC Hgb Hct MCV MCH MCHC RDW Plt Count MPV Neut % (Auto) Lymph % (Auto) [place] % (Auto) Eos % (Auto) Baso % (Auto) Absolute Neuts (auto) Absolute Lymphs (auto) Absolute Monos (auto) Absolute Eos (auto) Absolute Basos (auto) Absolute Nucleated RBC Nucleated RBC % INR (Anticoag Therapy) Sodium Potassium Chloride Carbon Dioxide Anion Gap BUN Creatinine Est GFR ( Amer) Est GFR (Non-Af Amer) BUN/Creatinine Ratio Glucose Lactic Acid 5.1 H* Calcium Magnesium Total Bilirubin Direct Bilirubin Indirect Bilirubin AST ALT Alkaline Phosphatase Ammonia 56 H Troponin I C-Reactive Protein B-Natriuretic Peptide 48 Total Protein Albumin Globulin Albumin/Globulin Ratio Fluid Source Fluid Volume Fluid Color Fluid Appearance Fluid WBC Fluid RBC Fluid Tot Cell Count Fluid Neutrophils Fluid Lymphocytes Fluid Monocytes 12/20/19 12/21/19 12/21/19 20:51 04:44 04:44 WBC RBC Hgb Hct MCV MCH MCHC RDW Plt Count MPV Neut % (Auto) Lymph % (Auto) [place] % (Auto) Eos % (Auto) Baso % (Auto) Absolute Neuts (auto) Absolute Lymphs (auto) Absolute Monos (auto) Absolute Eos (auto) Absolute Basos (auto) Absolute Nucleated RBC Nucleated RBC % INR (Anticoag Therapy) Sodium 129 L Potassium 4.6 Chloride 99 L Carbon Dioxide 25 Anion Gap 5 BUN 9 Creatinine 1.19 H Est GFR ( Amer) 75.0 Est GFR (Non-Af Amer) 61.9 BUN/Creatinine Ratio 7.6 L Glucose 141 H Lactic Acid 5.1 H* 1.6 Calcium 8.3 L Magnesium Total Bilirubin 5.30 H Direct Bilirubin 2.20 H Indirect Bilirubin 3.1 H AST 35 ALT 20 Alkaline Phosphatase 155 H Ammonia Troponin I C-Reactive Protein B-Natriuretic Peptide Total Protein 5.9 L Albumin 2.1 L Globulin 3.8 Albumin/Globulin Ratio 0.6 L Fluid Source Fluid Volume Fluid Color Fluid Appearance Fluid WBC Fluid RBC Fluid Tot Cell Count Fluid Neutrophils Fluid Lymphocytes Fluid Monocytes 12/21/19 12/21/19 04:44 08:00 WBC 5.5 RBC 2.66 L Hgb 8.3 L Hct 26 L MCV 96 H MCH 31 MCHC 32 RDW 25 H Plt Count 130 L MPV 7.6 Neut % (Auto) 56.9 Lymph % (Auto) 20.7 [place] % (Auto) 16.2 Eos % (Auto) 5.8 Baso % (Auto) 0.4 Absolute Neuts (auto) 3.1 Absolute Lymphs (auto) 1.1 Absolute Monos (auto) 0.9 H Absolute Eos (auto) 0.3 Absolute Basos (auto) 0.0 Absolute Nucleated RBC 0.0 Nucleated RBC % 0.0 INR (Anticoag Therapy) Sodium Potassium Chloride Carbon Dioxide Anion Gap BUN Creatinine Est GFR ( Amer) Est GFR (Non-Af Amer) BUN/Creatinine Ratio Glucose Lactic Acid Calcium Magnesium Total Bilirubin Direct Bilirubin Indirect Bilirubin AST ALT Alkaline Phosphatase Ammonia Troponin I C-Reactive Protein B-Natriuretic Peptide Total Protein Albumin Globulin Albumin/Globulin Ratio Fluid Source Peritonial fluid Fluid Volume 1040 Fluid Color Yellow Fluid Appearance Cloudy Fluid WBC 165 Fluid RBC 486 Fluid Tot Cell Count 100 Fluid Neutrophils 1 Fluid Lymphocytes 87 Fluid Monocytes 12 Microbiology and Other Data: Microbiology 12/21/19 08:20 Gram Stain - Final Body Fluid - Peritoneal Assess/Plan/Problems-Billing Assessment: 64 yr old male with pmh of alcoholic cirrhosis, hepatic encephalopathy, subdural hematoma, htn, asthma, depression, seizure, conversion do, noncompliance; who presented to the ED with abd distention, weight gain, and abd pain - Patient Problems (1) Tachycardia Current Visit: Yes Status: Acute Code(s): R00.0 - TACHYCARDIA, UNSPECIFIED SNOMED Code(s): 1096046 Comment: - Continue propranolol TID. - Feel this is likely due to being intravascularly dry. - Has been present for about a month and has seen PCP and liver specialist. - Cont tele - Asymptomatic (2) Alcoholic cirrhosis of liver with ascites Current Visit: No Status: Acute Code(s): K70.31 - ALCOHOLIC CIRRHOSIS OF LIVER WITH ASCITES SNOMED Code(s): 203734450 Comment: - US revealed normal flow in portal veins as well as a large amount of ascities. He is to undergo a paracentesis today with Dr. Bishop. - Abd tapped on 12/21/[address] Douglas and 5.7 liters removed. - Peritoneal WBC less than 250 therefore abx not ordered at this time. - Received 2 units albumin after tap. - Ammonia increased to 82 today. Given additional lactulose one time, and increased 45ml dosing to TID, will recheck in AM. - Continue aldactone and lasix. (3) Hepatic encephalopathy Current Visit: No Status: Acute Code(s): K72.90 - HEPATIC FAILURE, UNSPECIFIED WITHOUT COMA SNOMED Code(s): 77508298 Comment: - More confused today. - Ammonia increased to 82, given additional dose of lactulose and 45ml dosing increased to TID. Recheck in AM. - Continue Rifaximin. (4) DVT prophylaxis Current Visit: No Status: Acute Onset Date: 11/02/14 Code(s): DJQ6488 - SNOMED Code(s): 898810003 Comment: - SCDs. (5) Full code status Current Visit: No Status: Acute Onset Date: 11/02/14 Code(s): Z78.9 - OTHER SPECIFIED HEALTH STATUS SNOMED Code(s): 746636917 Status and Disposition: Dispo: Inpatient admit Condition: Guarded. Attending: Areli Crockett
[2019-12-23] MEDS: Gabapentin CAP(*) 300 MG PO SCH (21:48)
[2019-12-23] MEDS: traZODone TAB* 50 MG TAB PO SCH (21:50)
[2019-12-24 05:31] LABS: Albumin 2.1 g/dL (3.2-5.2); Albumin/Globulin Ratio 0.6 (1-3); Calcium 8.6 mg/dL (8.6-10.3); EGFR African American 52.1 (>60); EGFR Non-African American 43.1 (>60); Globulin 3.5 g/dL (2-4); Potassium 4.6 mmol/L (3.5-5.0); Total Bilirubin 3.5 mg/dL (0.2-1.0); Total Protein 5.6 g/dL (6.4-8.9)
[2019-12-24 09:12] LABS: ABS Basophils 0.1 10^3/ul (0-0.2); ABS Eosinophils 0.4 10^3/ul (0-0.6); ABS Lymphocytes 0.9 10^3/ul (1.0-4.8); ABS Monocytes 0.7 10^3/ul (0-0.8); ABS Neutrophils 2.7 10^3/ul (1.5-7.7); Eosinophil % 9.2 %; Hematocrit 25 % (42-52); Hemoglobin 7.8 g/dL (14.0-18.0); Lymphocyte % 17.9 %; Mean Corpuscular HGB Conc 32 g/dL (31-36); Mean Corpuscular Hemoglobin 31 pg (27-31); Mean Corpuscular Volume 97 fL (80-94); Mean Platelet Volume 7.6 fL (7.4-10.4); Nucleated Red Blood Cells % 0.1; Platelet Count 133 10^3/uL (150-450); Red Blood Count 2.54 10^6 /uL (4.18-5.48); Red Cell Distribution Width 25 % (10-15); White Blood Count 4.8 10^3/uL (3.5-10.8)
[2019-12-24] MEDS: levETIRAcetam TAB* 500 MG PO SCH ×2 (12:03→21:41)
[2019-12-24] MEDS: Cyanocobalamin TAB* 500 MCG PO SCH (12:03)
[2019-12-24] MEDS: DULoxetine DR CAP* 20 MG CAP.DR PO SCH (12:04)
[2019-12-24] MEDS: Pantoprazole TAB * 40 MG TAB PO SCH ×2 (12:04→21:41)
[2019-12-24] MEDS: RiFAXimin* 550 MG TAB PO SCH ×2 (12:04→21:41)
[2019-12-24] MEDS: Folic Acid TAB* 1 MG PO SCH (12:05)
[2019-12-24] MEDS: Magnesium Oxide TAB* 400 MG PO SCH (12:05)
[2019-12-24] MEDS: Lactobacillus Acidophilus* 1 TAB PO SCH (12:05)
[2019-12-24] MEDS: Ferrous Sulfate TAB* 325 MG PO SCH (12:05)
[2019-12-24] MEDS: Spironolactone TAB* 25 MG PO SCH (12:06)
[2019-12-24] MEDS: Furosemide TAB* 40 MG PO SCH (12:06)
[2019-12-24] MEDS: Fluticasone NASAL SPRAY 50MCG* 16 gm SPRAY BTL BOTH NARES SCH (12:07)
--- NOTE | 2019-12-24 15:04 | CONS ---
GASTROENTEROLOGY CONSULT: DATE: CONSULTING PHYSICIANS: Dr. Donavon Douglas; Roxie Nuñez, DARCI. REASON FOR CONSULTATION: Liver failure with ascites and encephalopathy, worsening despite his usual regimen. HISTORY: This 64-year-old chronic alcoholic came to the emergency room short of breath. He was found to have abdominal distention. He was admitted and his usual regimen put in place, although he was not on a fluid restriction. He did have paracentesis a day after admission of a liter with a ascitic white count of 165. His weight was seen to go up from 211 to 221, then 224, and then 227 two days ago. A fluid restriction was then put in place. There is some question as to whether the of 211 in the emergency room was correct. He has been on Lasix 40 mg, though it may have been held 1 day and also spironolactone 100, magnesium oxide 400, and lactulose 45 mL twice a day and 30 mL h.s. and it was just increased today. Today, he had portal ultrasound showing appropriate flow through the portal circulation and large amount of ascites and a cirrhotic liver. His sodium restriction was loosened dietarily and a fluid restriction imposed, although that has only been in place for few hours. He has been afebrile. White count has been normal since admission. His sister was with him in the ER. Her name is Cassandra Mata and she has been a nurse at [employer]. His 91-year-old father lives in the area. Most recently, he has been living at [place] where he claims to be cooking his own meals, going out shopping with the assistance of his sister. He says he last had beer a couple of weeks ago which fits his answer to that question on several admissions in recent yrs. He is mildly somnolent (presumed encephalopathy) at the moment and there is no way to corroborate this. Multiple history documents over the last year and a half show reference to quitting drinking recently. He talks about an active transplant evaluation PAST MEDICAL HISTORY: 1. Alcoholic cirrhosis - grossly elevated ASTs back in 2014 and 2015 with the bilirubin up at 4.9 in October 2014 and never normalizing since then, although there was a moment with a bilirubin of 1.8 in June 2019. His ammonia has been elevated chronically for 5 years. His INR in 2014 was elevated at 1.15 and was worst at 1.86 in March 2019. His albumin is 2.1. He has never had any overt bleeding. Upper endoscopy by Dr. Hoffman in March 2019 showed small varices and portal hypertensive gastropathy. This was essentially unchanged from 2017. 2. Refractory ascites - he had been on a low-sodium diet when at [facility] in fall of 2017 to an undetermined period of time. He has had paracenteses going back 3 to 4 years. Lactulose has been given, but at times he has refused it. 3. Depression - there was suicidal ideation and a psychiatry consult in March 2019. 4. Status post cholecystectomy - 2006. 5. Umbilical hernia - with leaking fluid a year or two ago. 6. History of subdural hematomas. 7. Duodenal ulcers - March 2015 - he received no transfusions at that time, but did have 1 in June 2017. 8. Status post appendectomy. 9. History of seizures - alcohol related. 10. Conversion disorder - listed in history and physicals. MEDICATIONS: At home, he was prescribed: 1. Keppra. 2. Trazodone. 3. Buspirone. 4. Rifaximin. 5. Lactulose. 6. Midodrine. 7. Omeprazole. 8. Cymbalta. 9. Furosemide. Though it is doubted he was taking them accurately if at all. 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 REVIEW OF SYSTEMS: No history of intracranial surgery, cardiac syncope, known arrhythmias. His BNP has been elevated in the past, worst in October 2016 at 345, but actually normal this admission at 48. B12 level is above the upper limit. There is no history of viral hepatitis. A relative is reported to have been hemochromatosis heterozygote, though he was negative for this in 2016. No history of renal stones. His only reported colonoscopy in April 2009 showed mild diverticulosis throughout the colon. EXAM: He is a chronically ill-appearing man, somnolent in bed, though does arouse. He is oriented to person and place, though he has the date completely wrong. He will stay awake with conversation, but lapses back somnolent. Cranial nerves are symmetric. He has pronounced asterixis. He has no neck abnormality. He is icteric. Lungs show rhonchi. His abdomen is distended, firm, and there is a distended firm umbilical hernia. There is no overt tenderness. Rectal: Deferred. Extremities show 2+ edema at the ankles. DIAGNOSTIC STUDIES/LAB DATA: Today, white count 4.8, hemoglobin 7.8, hematocrit 25, platelets 133. INR 1.80. Sodium 126, potassium 4.6, BUN 13, creatinine 1.63, glucose 98, calcium 8.6. Bilirubin 3.5, ALT 18, alkaline phosphatase 136. BNP 48. TSH, 10/10/19, 1.92. Chest x-ray - No gross diffusions 4 days ago. IMPRESSION: This 64-year-old man with decompensated cirrhosis despite has had progression of ascites despite being in the hospital 4 days and no response as regards to encephalopathy which is still active. Hyponatremia may be contributing to the encephalopathy. Reinstitution of sodium restriction 2 g orally and a strict water restriction is indicated. The rise in his creatinine needs to be validated, but if it is truly occurring, its occurrence is ominous which speaks a very poor prognosis. This might be caused to work around the end -of-life visitor restriction currently in place because of the COVID-19 outbreak. His prognosis is truly abysmal. A repeat palliative paracentesis is indicated. [id number]/[facility] #: [id number] MARILUZ
--- NOTE | 2019-12-24 16:20 | PN ---
Subjective Date of Service: 12/24/19 Interval History: Appears to be increasingly confused today, stating he feels drunk. Old paracentesis site to right abdomen continues to leak. Had a regi conversation with patient about goals of care and treatment plans. Patient does not feel he is ready for a palliative care consult at this time, though is willing to revisit the conversation should our interventions this visit not yield any improvement in his status. Family History: Unchanged from Admission Social History: Unchanged from Admission Past Medical History: Unchanged from Admission Objective Active Medications: Albuterol (Ventolin Hfa Inhaler*) 2 puff INH Q4H PRN PRN Reason: SHORTNESS OF BREATH Cyanocobalamin (Vitamin B12 Tab*) 500 mcg PO DAILY [facility] Last Admin: 12/24/19 12:03 Dose: 500 mcg Duloxetine HCl (Cymbalta Cap*) 40 mg PO DAILY [facility] Last Admin: 12/24/19 12:04 Dose: 40 mg Ferrous Sulfate (Ferrous Sulfate Tab*) 325 mg PO DAILY [facility] Last Admin: 12/24/19 12:05 Dose: 325 mg Fluticasone Propionate (Flonase Nasal [place] 50mcg*) 1 spray BOTH NARES DAILY [facility] Last Admin: 12/24/19 12:07 Dose: 1 spray Folic Acid (Folvite Tab*) 1 mg PO DAILY [facility] Last Admin: 12/24/19 12:05 Dose: 1 mg Furosemide (Lasix Tab*) 40 mg PO DAILY [facility] Last Admin: 12/24/19 12:06 Dose: 40 mg Gabapentin (Neurontin Cap(*)) 300 mg PO BEDTIME [facility] Last Admin: 12/23/19 21:48 Dose: 300 mg Hydromorphone HCl (Dilaudid Tab*) 0.5 mg PO Q4H PRN PRN Reason: PAIN - MODERATE Last Admin: 12/23/19 21:49 Dose: 0.5 mg Lactobacillus Rhamnosus (Lactobacillus Acidophilus*) 1 tab PO DAILY [facility] Last Admin: 12/24/19 12:05 Dose: 1 tab Lactulose (Lactulose*) 30 ml PO BEDTIME [facility] Last Admin: 12/23/19 21:51 Dose: 30 ml Lactulose (Lactulose*) 45 ml PO 0800,1300,1700 [facility] Last Admin: 12/24/19 14:39 Dose: 45 ml Levetiracetam (Keppra Tab*) 500 mg PO BID [facility] Last Admin: 12/24/19 12:03 Dose: 500 mg Magnesium Oxide (Magox 400 Tab*) 400 mg PO DAILY [facility] Last Admin: 12/24/19 12:05 Dose: 400 mg Midodrine (Midodrine) 5 mg PO BID [facility]; Protocol Last Admin: 12/24/19 12:04 Dose: 5 mg Ondansetron HCl (Zofran Odt Tab*) 4 mg PO Q8H PRN PRN Reason: NAUSEA/VOMITING Pantoprazole Sodium (Protonix Tab*) 40 mg PO BID [facility] Last Admin: 12/24/19 12:04 Dose: 40 mg Propranolol HCl (Inderal 10 Mg Tab) 10 mg PO TID [facility] Last Admin: 12/24/19 14:38 Dose: 10 mg Rifaximin (Xifaxan*) 550 mg PO BID [facility] Last Admin: 12/24/19 12:04 Dose: 550 mg Spironolactone (Aldactone Tab*) 100 mg PO DAILY [facility] Last Admin: 12/24/19 12:06 Dose: 100 mg Trazodone HCl (Desyrel Tab*) 50 mg PO BEDTIME [facility] Last Admin: 12/23/19 21:50 Dose: 50 mg Vital Signs - 8 hr 12/24/19 12/24/19 12/24/19 14:37 15:04 16:02 Temperature 97.2 F 97.0 F Pulse Rate 67 69 Respiratory 16 16 Rate Blood Pressure 120/50 105/62 117/51 (mmHg) O2 Sat by Pulse 99 95 Oximetry Oxygen Devices in Use Now: None Appearance: Jaundiced, ill appeared gentleman seen resting in bed, disheveled but no acute distress. Eyes: No Scleral Icterus, PERRLA, - - Scleral jaundice Ears/Nose/Mouth/Throat: NL Teeth, Lips, Gums, Clear Oropharnyx, Mucous Membranes Moist, - - Evidence of dried blood in left nares. Neck: NL Appearance and Movements; NL JVP, Trachea Midline Respiratory: Symmetrical Chest Expansion and Respiratory Effort, Clear to Auscultation, - - Diminished throughout bilaterally on room air. Cardiovascular: NL Sounds; No Murmurs; No JVD, RRR, No Edema Abdominal: NL Sounds; No Tenderness; No Distention, No Hepatosplenomegaly Lymphatic: No Cervical Adenopathy Extremities: No Edema, No Clubbing, Cyanosis Skin: No Rash or Ulcers, No Nodules or Sclerosis, - - Jaundiced. Neurological: - - Alert and orientedx2. Disoriented to time. Lines/Tubes/Other Access: Clean, Dry and Intact Peripheral IV Result Diagrams: 12/24/19 08:50 12/24/19 05:05 Additional Lab and Data: Laboratory Results - last 24 hr 12/20/19 12/20/19 12/20/19 17:37 17:37 17:37 WBC 6.1 RBC 3.02 L Hgb 9.2 L Hct 29 L MCV 95 H MCH 30 MCHC 32 RDW 25 H Plt Count 162 MPV 7.1 L Neut % (Auto) 58.6 Lymph % (Auto) 17.3 [place] % (Auto) 18.8 Eos % (Auto) 4.5 Baso % (Auto) 0.8 Absolute Neuts (auto) 3.6 Absolute Lymphs (auto) 1.1 Absolute Monos (auto) 1.1 H Absolute Eos (auto) 0.3 Absolute Basos (auto) 0.0 Absolute Nucleated RBC 0.0 Nucleated RBC % 0.1 INR (Anticoag Therapy) 1.80 H Sodium 132 L Potassium 4.2 Chloride 99 L Carbon Dioxide 23 Anion Gap 10 BUN 7 Creatinine 0.98 Est GFR ( Amer) 93.8 Est GFR (Non-Af Amer) 77.5 BUN/Creatinine Ratio 7.1 L Glucose 109 H Lactic Acid Calcium 8.6 Magnesium 1.8 L Total Bilirubin 5.40 H Direct Bilirubin Indirect Bilirubin AST 30 ALT 22 Alkaline Phosphatase 159 H Ammonia Troponin I 0.01 C-Reactive Protein 14.54 H B-Natriuretic Peptide Total Protein 6.4 Albumin 2.3 L Globulin 4.1 H Albumin/Globulin Ratio 0.6 L Fluid Source Fluid Volume Fluid Color Fluid Appearance Fluid WBC Fluid RBC Fluid Tot Cell Count Fluid Neutrophils Fluid Lymphocytes Fluid Monocytes 12/20/19 12/20/19 12/20/19 17:37 17:37 20:51 WBC RBC Hgb Hct MCV MCH MCHC RDW Plt Count MPV Neut % (Auto) Lymph % (Auto) [place] % (Auto) Eos % (Auto) Baso % (Auto) Absolute Neuts (auto) Absolute Lymphs (auto) Absolute Monos (auto) Absolute Eos (auto) Absolute Basos (auto) Absolute Nucleated RBC Nucleated RBC % INR (Anticoag Therapy) Sodium Potassium Chloride Carbon Dioxide Anion Gap BUN Creatinine Est GFR ( Amer) Est GFR (Non-Af Amer) BUN/Creatinine Ratio Glucose Lactic Acid 5.1 H* Calcium Magnesium Total Bilirubin Direct Bilirubin Indirect Bilirubin AST ALT Alkaline Phosphatase Ammonia 56 H Troponin I C-Reactive Protein B-Natriuretic Peptide 48 Total Protein Albumin Globulin Albumin/Globulin Ratio Fluid Source Fluid Volume Fluid Color Fluid Appearance Fluid WBC Fluid RBC Fluid Tot Cell Count Fluid Neutrophils Fluid Lymphocytes Fluid Monocytes 12/20/19 12/21/19 12/21/19 20:51 04:44 04:44 WBC RBC Hgb Hct MCV MCH MCHC RDW Plt Count MPV Neut % (Auto) Lymph % (Auto) [place] % (Auto) Eos % (Auto) Baso % (Auto) Absolute Neuts (auto) Absolute Lymphs (auto) Absolute Monos (auto) Absolute Eos (auto) Absolute Basos (auto) Absolute Nucleated RBC Nucleated RBC % INR (Anticoag Therapy) Sodium 129 L Potassium 4.6 Chloride 99 L Carbon Dioxide 25 Anion Gap 5 BUN 9 Creatinine 1.19 H Est GFR ( Amer) 75.0 Est GFR (Non-Af Amer) 61.9 BUN/Creatinine Ratio 7.6 L Glucose 141 H Lactic Acid 5.1 H* 1.6 Calcium 8.3 L Magnesium Total Bilirubin 5.30 H Direct Bilirubin 2.20 H Indirect Bilirubin 3.1 H AST 35 ALT 20 Alkaline Phosphatase 155 H Ammonia Troponin I C-Reactive Protein B-Natriuretic Peptide Total Protein 5.9 L Albumin 2.1 L Globulin 3.8 Albumin/Globulin Ratio 0.6 L Fluid Source Fluid Volume Fluid Color Fluid Appearance Fluid WBC Fluid RBC Fluid Tot Cell Count Fluid Neutrophils Fluid Lymphocytes Fluid Monocytes 12/21/19 12/21/19 04:44 08:00 WBC 5.5 RBC 2.66 L Hgb 8.3 L Hct 26 L MCV 96 H MCH 31 MCHC 32 RDW 25 H Plt Count 130 L MPV 7.6 Neut % (Auto) 56.9 Lymph % (Auto) 20.7 [place] % (Auto) 16.2 Eos % (Auto) 5.8 Baso % (Auto) 0.4 Absolute Neuts (auto) 3.1 Absolute Lymphs (auto) 1.1 Absolute Monos (auto) 0.9 H Absolute Eos (auto) 0.3 Absolute Basos (auto) 0.0 Absolute Nucleated RBC 0.0 Nucleated RBC % 0.0 INR (Anticoag Therapy) Sodium Potassium Chloride Carbon Dioxide Anion Gap BUN Creatinine Est GFR ( Amer) Est GFR (Non-Af Amer) BUN/Creatinine Ratio Glucose Lactic Acid Calcium Magnesium Total Bilirubin Direct Bilirubin Indirect Bilirubin AST ALT Alkaline Phosphatase Ammonia Troponin I C-Reactive Protein B-Natriuretic Peptide Total Protein Albumin Globulin Albumin/Globulin Ratio Fluid Source Peritonial fluid Fluid Volume 1040 Fluid Color Yellow Fluid Appearance Cloudy Fluid WBC 165 Fluid RBC 486 Fluid Tot Cell Count 100 Fluid Neutrophils 1 Fluid Lymphocytes 87 Fluid Monocytes 12 Microbiology and Other Data: Microbiology 12/21/19 08:20 Gram Stain - Final Body Fluid - Peritoneal Assess/Plan/Problems-Billing Assessment: 64 yr old male with pmh of alcoholic cirrhosis, hepatic encephalopathy, subdural hematoma, htn, asthma, depression, seizure, conversion do, noncompliance; who presented to the ED with abd distention, weight gain, and abd pain - Patient Problems (1) Alcoholic cirrhosis of liver with ascites Current Visit: No Status: Acute Code(s): K70.31 - ALCOHOLIC CIRRHOSIS OF LIVER WITH ASCITES SNOMED Code(s): 376959473 Comment: - US revealed normal flow in portal veins as well as a large amount of ascities. He is to undergo a paracentesis today with Dr. Bishop. - Abd tapped on 12/21/[address] Douglas and 5.7 liters removed. - Peritoneal WBC less than 250 therefore abx not ordered at this time. - Received 2 units albumin after tap. - Ammonia increased to 82 today. Given additional lactulose one time, and increased 45ml dosing to TID, will recheck in AM. - Continue aldactone and lasix. (2) Tachycardia Current Visit: Yes Status: Acute Code(s): R00.0 - TACHYCARDIA, UNSPECIFIED SNOMED Code(s): 5506497 Comment: - Continue propranolol TID. - Feel this is likely due to being intravascularly dry. - Has been present for about a month and has seen PCP and liver specialist. - Cont tele - Asymptomatic (3) Hepatic encephalopathy Current Visit: No Status: Acute Code(s): K72.90 - HEPATIC FAILURE, UNSPECIFIED WITHOUT COMA SNOMED Code(s): 67480121 Comment: - More confused today. - Ammonia increased to 82, given additional dose of lactulose and 45ml dosing increased to TID. Recheck in AM. - Continue Rifaximin. (4) DVT prophylaxis Current Visit: No Status: Acute Onset Date: 11/02/14 Code(s): DPG0641 - SNOMED Code(s): 359111022 Comment: - SCDs. (5) Full code status Current Visit: No Status: Acute Onset Date: 11/02/14 Code(s): Z78.9 - OTHER SPECIFIED HEALTH STATUS SNOMED Code(s): 304621835 Status and Disposition: Dispo: Inpatient admit Condition: Guarded. Attending: Areli Crockett
[2019-12-24] MEDS: HYDROmorphone TAB* 2 MG PO PRN (18:05)
[2019-12-24 20:04] LABS: CO2 Carbon Dioxide 21 mmol/L (22-32); Chloride 99 mmol/L (101-111); Sodium 128 mmol/L (135-145)
[2019-12-24 20:10] LABS: BUN/Creatinine Ratio 8.2 (8-20); Blood Urea Nitrogen 14 mg/dL (6-24); EGFR African American 49.7 (>60); Glucose 145 mg/dL (70-100)
[2019-12-24 20:41] LABS: Anion Gap 8 mmol/L (2-11)
[2019-12-24] MEDS: Gabapentin CAP(*) 300 MG PO SCH (21:40)
[2019-12-24] MEDS: traZODone TAB* 50 MG TAB PO SCH (21:41)
[2019-12-25 04:58] LABS: BUN/Creatinine Ratio 9.3 (8-20); Calcium 8.3 mg/dL (8.6-10.3); EGFR African American 56.9 (>60); EGFR Non-African American 47.1 (>60); Potassium 4.1 mmol/L (3.5-5.0)
[2019-12-25] MEDS: DULoxetine DR CAP* 20 MG CAP.DR PO SCH (09:06)
[2019-12-25] MEDS: Cyanocobalamin TAB* 500 MCG PO SCH (09:06)
[2019-12-25] MEDS: Ferrous Sulfate TAB* 325 MG PO SCH (09:06)
[2019-12-25] MEDS: Folic Acid TAB* 1 MG PO SCH (09:07)
[2019-12-25] MEDS: Fluticasone NASAL SPRAY 50MCG* 16 gm SPRAY BTL BOTH NARES SCH (09:07)
[2019-12-25] MEDS: Lactobacillus Acidophilus* 1 TAB PO SCH (09:08)
[2019-12-25] MEDS: levETIRAcetam TAB* 500 MG PO SCH ×2 (09:08→20:58)
[2019-12-25] MEDS: Furosemide TAB* 40 MG PO SCH (09:08)
[2019-12-25] MEDS: Magnesium Oxide TAB* 400 MG PO SCH (09:09)
[2019-12-25] MEDS: Pantoprazole TAB * 40 MG TAB PO SCH ×2 (09:10→20:58)
[2019-12-25] MEDS: RiFAXimin* 550 MG TAB PO SCH ×2 (09:11→20:58)
[2019-12-25] MEDS: Spironolactone TAB* 25 MG PO SCH (09:11)
[2019-12-25] MEDS: HYDROmorphone TAB* 2 MG PO PRN ×3 (09:23→21:05)
--- NOTE | 2019-12-25 12:38 | PN ---
Subjective Date of Service: 12/25/19 Interval History: Pt reports that he is feeling better today. Pt reports that he no longer has that "drunk feeling" he is accustomed to with elevated ammonia levels. Pt is alert and oriented x 4. States that his abdomen feels much better and his legs are smaller today. However, patient also reports that he is feeling a lot of soreness in all joints and muscles. Family History: Unchanged from Admission Social History: Unchanged from Admission Past Medical History: Unchanged from Admission Objective Active Medications: Albuterol (Ventolin Hfa Inhaler*) 2 puff INH Q4H PRN PRN Reason: SHORTNESS OF BREATH Cyanocobalamin (Vitamin B12 Tab*) 500 mcg PO DAILY [facility] Last Admin: 12/25/19 09:06 Dose: 500 mcg Duloxetine HCl (Cymbalta Cap*) 40 mg PO DAILY [facility] Last Admin: 12/25/19 09:06 Dose: 40 mg Ferrous Sulfate (Ferrous Sulfate Tab*) 325 mg PO DAILY [facility] Last Admin: 12/25/19 09:06 Dose: 325 mg Fluticasone Propionate (Flonase Nasal [place] 50mcg*) 1 spray BOTH NARES DAILY [facility] Last Admin: 12/25/19 09:07 Dose: 1 spray Folic Acid (Folvite Tab*) 1 mg PO DAILY [facility] Last Admin: 12/25/19 09:07 Dose: 1 mg Furosemide (Lasix Tab*) 40 mg PO DAILY [facility] Last Admin: 12/25/19 09:08 Dose: 40 mg Gabapentin (Neurontin Cap(*)) 300 mg PO BEDTIME [facility] Last Admin: 12/24/19 21:40 Dose: 300 mg Hydromorphone HCl (Dilaudid Tab*) 0.5 mg PO Q4H PRN PRN Reason: PAIN - MODERATE Last Admin: 12/25/19 09:23 Dose: 0.5 mg Lactobacillus Rhamnosus (Lactobacillus Acidophilus*) 1 tab PO DAILY [facility] Last Admin: 12/25/19 09:08 Dose: 1 tab Lactulose (Lactulose*) 30 ml PO BEDTIME [facility] Last Admin: 12/24/19 21:40 Dose: 30 ml Lactulose (Lactulose*) 45 ml PO 0800,1300,1700 [facility] Last Admin: 12/25/19 09:01 Dose: 45 ml Levetiracetam (Keppra Tab*) 500 mg PO BID [facility] Last Admin: 12/25/19 09:08 Dose: 500 mg Magnesium Oxide (Magox 400 Tab*) 400 mg PO DAILY [facility] Last Admin: 12/25/19 09:09 Dose: 400 mg Midodrine (Midodrine) 5 mg PO BID [facility]; Protocol Last Admin: 12/25/19 09:10 Dose: 5 mg Ondansetron HCl (Zofran Odt Tab*) 4 mg PO Q8H PRN PRN Reason: NAUSEA/VOMITING Pantoprazole Sodium (Protonix Tab*) 40 mg PO BID [facility] Last Admin: 12/25/19 09:10 Dose: 40 mg Propranolol HCl (Inderal 10 Mg Tab) 10 mg PO TID [facility] Last Admin: 12/25/19 09:10 Dose: 10 mg Rifaximin (Xifaxan*) 550 mg PO BID [facility] Last Admin: 12/25/19 09:11 Dose: 550 mg Spironolactone (Aldactone Tab*) 100 mg PO DAILY [facility] Last Admin: 12/25/19 09:11 Dose: 100 mg Trazodone HCl (Desyrel Tab*) 50 mg PO BEDTIME [facility] Last Admin: 12/24/19 21:41 Dose: 50 mg Vital Signs - 8 hr 12/25/19 12/25/19 12/25/19 07:15 08:00 09:23 Temperature 98.4 F Pulse Rate 70 Respiratory 14 16 16 Rate Blood Pressure 107/53 (mmHg) O2 Sat by Pulse 99 Oximetry 12/25/19 11:25 Temperature Pulse Rate Respiratory 16 Rate Blood Pressure (mmHg) O2 Sat by Pulse Oximetry Oxygen Devices in Use Now: None Appearance: Middle aged gentleman appearing older than stated age, jaundiced skin, sleeping supine in bed. Does not appear to be in any distress. Eyes: PERRLA, - - Faint scleral icterus noted bilaterally Ears/Nose/Mouth/Throat: NL Teeth, Lips, Gums, Clear Oropharnyx, Mucous Membranes Moist Neck: NL Appearance and Movements; NL JVP, Trachea Midline, No Thyroid Enlargement, Masses Respiratory: Symmetrical Chest Expansion and Respiratory Effort, Clear to Auscultation Cardiovascular: NL Sounds; No Murmurs; No JVD, RRR, No Edema Abdominal: - - Abdomen round distended, without much tension but obvious fluid collection. Bandages over sites of paracentesis right and left abdomen no drainage appreciated. 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 equal Result Diagrams: 12/24/19 08:50 12/25/19 04:32 Additional Lab and Data: Laboratory Results - last 24 hr 12/20/19 12/20/19 12/20/19 17:37 17:37 17:37 WBC 6.1 RBC 3.02 L Hgb 9.2 L Hct 29 L MCV 95 H MCH 30 MCHC 32 RDW 25 H Plt Count 162 MPV 7.1 L Neut % (Auto) 58.6 Lymph % (Auto) 17.3 [place] % (Auto) 18.8 Eos % (Auto) 4.5 Baso % (Auto) 0.8 Absolute Neuts (auto) 3.6 Absolute Lymphs (auto) 1.1 Absolute Monos (auto) 1.1 H Absolute Eos (auto) 0.3 Absolute Basos (auto) 0.0 Absolute Nucleated RBC 0.0 Nucleated RBC % 0.1 INR (Anticoag Therapy) 1.80 H Sodium 132 L Potassium 4.2 Chloride 99 L Carbon Dioxide 23 Anion Gap 10 BUN 7 Creatinine 0.98 Est GFR ( Amer) 93.8 Est GFR (Non-Af Amer) 77.5 BUN/Creatinine Ratio 7.1 L Glucose 109 H Lactic Acid Calcium 8.6 Magnesium 1.8 L Total Bilirubin 5.40 H Direct Bilirubin Indirect Bilirubin AST 30 ALT 22 Alkaline Phosphatase 159 H Ammonia Troponin I 0.01 C-Reactive Protein 14.54 H B-Natriuretic Peptide Total Protein 6.4 Albumin 2.3 L Globulin 4.1 H Albumin/Globulin Ratio 0.6 L Fluid Source Fluid Volume Fluid Color Fluid Appearance Fluid WBC Fluid RBC Fluid Tot Cell Count Fluid Neutrophils Fluid Lymphocytes Fluid Monocytes 12/20/19 12/20/19 12/20/19 17:37 17:37 20:51 WBC RBC Hgb Hct MCV MCH MCHC RDW Plt Count MPV Neut % (Auto) Lymph % (Auto) [place] % (Auto) Eos % (Auto) Baso % (Auto) Absolute Neuts (auto) Absolute Lymphs (auto) Absolute Monos (auto) Absolute Eos (auto) Absolute Basos (auto) Absolute Nucleated RBC Nucleated RBC % INR (Anticoag Therapy) Sodium Potassium Chloride Carbon Dioxide Anion Gap BUN Creatinine Est GFR ( Amer) Est GFR (Non-Af Amer) BUN/Creatinine Ratio Glucose Lactic Acid 5.1 H* Calcium Magnesium Total Bilirubin Direct Bilirubin Indirect Bilirubin AST ALT Alkaline Phosphatase Ammonia 56 H Troponin I C-Reactive Protein B-Natriuretic Peptide 48 Total Protein Albumin Globulin Albumin/Globulin Ratio Fluid Source Fluid Volume Fluid Color Fluid Appearance Fluid WBC Fluid RBC Fluid Tot Cell Count Fluid Neutrophils Fluid Lymphocytes Fluid Monocytes 12/20/19 12/21/19 12/21/19 20:51 04:44 04:44 WBC RBC Hgb Hct MCV MCH MCHC RDW Plt Count MPV Neut % (Auto) Lymph % (Auto) [place] % (Auto) Eos % (Auto) Baso % (Auto) Absolute Neuts (auto) Absolute Lymphs (auto) Absolute Monos (auto) Absolute Eos (auto) Absolute Basos (auto) Absolute Nucleated RBC Nucleated RBC % INR (Anticoag Therapy) Sodium 129 L Potassium 4.6 Chloride 99 L Carbon Dioxide 25 Anion Gap 5 BUN 9 Creatinine 1.19 H Est GFR ( Amer) 75.0 Est GFR (Non-Af Amer) 61.9 BUN/Creatinine Ratio 7.6 L Glucose 141 H Lactic Acid 5.1 H* 1.6 Calcium 8.3 L Magnesium Total Bilirubin 5.30 H Direct Bilirubin 2.20 H Indirect Bilirubin 3.1 H AST 35 ALT 20 Alkaline Phosphatase 155 H Ammonia Troponin I C-Reactive Protein B-Natriuretic Peptide Total Protein 5.9 L Albumin 2.1 L Globulin 3.8 Albumin/Globulin Ratio 0.6 L Fluid Source Fluid Volume Fluid Color Fluid Appearance Fluid WBC Fluid RBC Fluid Tot Cell Count Fluid Neutrophils Fluid Lymphocytes Fluid Monocytes 12/21/19 12/21/19 04:44 08:00 WBC 5.5 RBC 2.66 L Hgb 8.3 L Hct 26 L MCV 96 H MCH 31 MCHC 32 RDW 25 H Plt Count 130 L MPV 7.6 Neut % (Auto) 56.9 Lymph % (Auto) 20.7 [place] % (Auto) 16.2 Eos % (Auto) 5.8 Baso % (Auto) 0.4 Absolute Neuts (auto) 3.1 Absolute Lymphs (auto) 1.1 Absolute Monos (auto) 0.9 H Absolute Eos (auto) 0.3 Absolute Basos (auto) 0.0 Absolute Nucleated RBC 0.0 Nucleated RBC % 0.0 INR (Anticoag Therapy) Sodium Potassium Chloride Carbon Dioxide Anion Gap BUN Creatinine Est GFR ( Amer) Est GFR (Non-Af Amer) BUN/Creatinine Ratio Glucose Lactic Acid Calcium Magnesium Total Bilirubin Direct Bilirubin Indirect Bilirubin AST ALT Alkaline Phosphatase Ammonia Troponin I C-Reactive Protein B-Natriuretic Peptide Total Protein Albumin Globulin Albumin/Globulin Ratio Fluid Source Peritonial fluid Fluid Volume 1040 Fluid Color Yellow Fluid Appearance Cloudy Fluid WBC 165 Fluid RBC 486 Fluid Tot Cell Count 100 Fluid Neutrophils 1 Fluid Lymphocytes 87 Fluid Monocytes 12 Microbiology and Other Data: Microbiology 12/21/19 08:20 Gram Stain - Final Body Fluid - Peritoneal Assess/Plan/Problems-Billing Assessment: 64 yr old male with pmh of alcoholic cirrhosis, hepatic encephalopathy, subdural hematoma, htn, asthma, depression, seizure, conversion do, noncompliance; who presented to the ED with abd distention, weight gain, and abd pain - Patient Problems (1) Alcoholic cirrhosis of liver with ascites Current Visit: No Comment: - US revealed normal flow in portal veins as well as a large amount of ascities. - Abd tapped on 12/24/[address] Bishop with approximately 6L drained. - No growth in cultures of ascities fluid - Lactulose regimen changed to 30ml TID and discontinued bedtime dose as patient is having large frequent loose stools. - Continue aldactone and lasix. (2) Abdominal pain Current Visit: Yes Comment: - Reports that abdominal pain has improved greatly since paracentesis yesterday (3) Hepatic encephalopathy Current Visit: Yes Comment: - Alert and oriented today - Ammonia increased to 96, Continue Lactulose dosing, 45ml TID and 30ml @HS. Recheck in AM. - Continue Rifaximin. (4) Tachycardia Current Visit: Yes Comment: - Well controlled - Continue propranolol TID. - Feel this is likely due to being intravascularly dry. - Has been present for about a month and has seen PCP and liver specialist. - Cont tele - Asymptomatic (5) DVT prophylaxis Current Visit: No Comment: - SCDs. (6) Full code status Current Visit: No Status and Disposition: Dispo: Inpatient admit Condition: Guarded.
[2019-12-25] MEDS: Gabapentin CAP(*) 300 MG PO SCH (20:57)
[2019-12-25] MEDS: traZODone TAB* 50 MG TAB PO SCH (20:58)
[2019-12-26] MEDS: DULoxetine DR CAP* 20 MG CAP.DR PO SCH (08:48)
[2019-12-26] MEDS: Spironolactone TAB* 25 MG PO SCH (08:50)
[2019-12-26] MEDS: Folic Acid TAB* 1 MG PO SCH (08:51)
[2019-12-26] MEDS: Furosemide TAB* 40 MG PO SCH (08:51)
[2019-12-26] MEDS: Magnesium Oxide TAB* 400 MG PO SCH (08:51)
[2019-12-26] MEDS: Pantoprazole TAB * 40 MG TAB PO SCH ×2 (08:53→20:06)
[2019-12-26] MEDS: Cyanocobalamin TAB* 500 MCG PO SCH (08:53)
[2019-12-26] MEDS: Lactobacillus Acidophilus* 1 TAB PO SCH (08:54)
[2019-12-26] MEDS: Ferrous Sulfate TAB* 325 MG PO SCH (08:54)
[2019-12-26] MEDS: RiFAXimin* 550 MG TAB PO SCH ×2 (08:55→20:05)
[2019-12-26] MEDS: levETIRAcetam TAB* 500 MG PO SCH ×2 (08:56→20:06)
[2019-12-26] MEDS: HYDROmorphone TAB* 2 MG PO PRN ×3 (09:05→20:05)
[2019-12-26] MEDS: Fluticasone NASAL SPRAY 50MCG* 16 gm SPRAY BTL BOTH NARES SCH (09:32)
[2019-12-26 11:34] LABS: Calcium 8.2 mg/dL (8.6-10.3); Potassium 3.7 mmol/L (3.5-5.0)
[2019-12-26 11:40] LABS: EGFR African American 82.1 (>60); EGFR Non-African American 67.8 (>60)
--- NOTE | 2019-12-26 16:10 | PN ---
Subjective Date of Service: 12/26/19 Interval History: Pt laying in bed. States that he is feeling more tired than usual. Not feeling weak. Mild frontal headache. Denies lightheadedness, CP, SOB, N/V/D, abdominal pain, unusual swelling of extremities. Believes that his abdomen is much better less distended then it was previously. States ache to BLE. Family History: Unchanged from Admission Social History: Unchanged from Admission Past Medical History: Unchanged from Admission Objective Active Medications: Albuterol (Ventolin Hfa Inhaler*) 2 puff INH Q4H PRN PRN Reason: SHORTNESS OF BREATH Cyanocobalamin (Vitamin B12 Tab*) 500 mcg PO DAILY [facility] Last Admin: 12/26/19 08:53 Dose: 500 mcg Duloxetine HCl (Cymbalta Cap*) 40 mg PO DAILY [facility] Last Admin: 12/26/19 08:48 Dose: 40 mg Ferrous Sulfate (Ferrous Sulfate Tab*) 325 mg PO DAILY [facility] Last Admin: 12/26/19 08:54 Dose: 325 mg Fluticasone Propionate (Flonase Nasal [place] 50mcg*) 1 spray BOTH NARES DAILY [facility] Last Admin: 12/26/19 09:32 Dose: 1 spray Folic Acid (Folvite Tab*) 1 mg PO DAILY [facility] Last Admin: 12/26/19 08:51 Dose: 1 mg Furosemide (Lasix Tab*) 40 mg PO DAILY [facility] Last Admin: 12/26/19 08:51 Dose: 40 mg Gabapentin (Neurontin Cap(*)) 300 mg PO BEDTIME [facility] Last Admin: 12/25/19 20:57 Dose: 300 mg Hydromorphone HCl (Dilaudid Tab*) 0.5 mg PO Q4H PRN PRN Reason: PAIN - MODERATE Last Admin: 12/26/19 13:35 Dose: 0.5 mg Lactobacillus Rhamnosus (Lactobacillus Acidophilus*) 1 tab PO DAILY [facility] Last Admin: 12/26/19 08:54 Dose: 1 tab Lactulose (Lactulose*) 30 ml PO 0800,1300,1700 [facility] Last Admin: 12/26/19 12:11 Dose: 30 ml Levetiracetam (Keppra Tab*) 500 mg PO BID [facility] Last Admin: 12/26/19 08:56 Dose: 500 mg Magnesium Oxide (Magox 400 Tab*) 400 mg PO DAILY [facility] Last Admin: 12/26/19 08:51 Dose: 400 mg Midodrine (Midodrine) 5 mg PO BID [facility]; Protocol Last Admin: 12/26/19 08:52 Dose: 5 mg Ondansetron HCl (Zofran Odt Tab*) 4 mg PO Q8H PRN PRN Reason: NAUSEA/VOMITING Pantoprazole Sodium (Protonix Tab*) 40 mg PO BID [facility] Last Admin: 12/26/19 08:53 Dose: 40 mg Propranolol HCl (Inderal 10 Mg Tab) 10 mg PO TID [facility] Last Admin: 12/26/19 13:35 Dose: 10 mg Rifaximin (Xifaxan*) 550 mg PO BID [facility] Last Admin: 12/26/19 08:55 Dose: 550 mg Spironolactone (Aldactone Tab*) 100 mg PO DAILY [facility] Last Admin: 12/26/19 08:50 Dose: 100 mg Trazodone HCl (Desyrel Tab*) 50 mg PO BEDTIME [facility] Last Admin: 12/25/19 20:58 Dose: 50 mg Vital Signs - 8 hr 12/26/19 12/26/19 12/26/19 08:06 09:05 11:24 Temperature Pulse Rate Respiratory 18 20 Rate Blood Pressure 110/60 (mmHg) O2 Sat by Pulse Oximetry 12/26/19 12/26/19 12/26/19 11:40 13:22 13:35 Temperature 97.5 F Pulse Rate 68 Respiratory 15 20 Rate Blood Pressure 123/59 120/70 (mmHg) O2 Sat by Pulse 99 Oximetry 12/26/19 12/26/19 15:15 15:43 Temperature 97.8 F Pulse Rate 70 Respiratory 18 16 Rate Blood Pressure 122/55 (mmHg) O2 Sat by Pulse 98 Oximetry Oxygen Devices in Use Now: None Appearance: Laying in bed, guarded Eyes: - - PERRL Ears/Nose/Mouth/Throat: Clear Oropharnyx Respiratory: Symmetrical Chest Expansion and Respiratory Effort, Clear to Auscultation - diminished to BLL Cardiovascular: RRR - grade 2/6 systolic murmur best heard at R upper sternal border Abdominal: - - normoactive BS throughout, abdomen large, round, tympanic with percussion, large soft umbilical hernia noted Extremities: No Edema Skin: - - sites to each side of abdomen covered with dressing, CDI Neurological: Alert and Oriented x 3 Nutrition: Taking PO's - 1500ml/day fluid restriction, low Na diet Result Diagrams: 12/26/19 16:39 12/26/19 11:12 Additional Lab and Data: Laboratory Results - last 24 hr 12/20/19 12/20/19 12/20/19 17:37 17:37 17:37 WBC 6.1 RBC 3.02 L Hgb 9.2 L Hct 29 L MCV 95 H MCH 30 MCHC 32 RDW 25 H Plt Count 162 MPV 7.1 L Neut % (Auto) 58.6 Lymph % (Auto) 17.3 [place] % (Auto) 18.8 Eos % (Auto) 4.5 Baso % (Auto) 0.8 Absolute Neuts (auto) 3.6 Absolute Lymphs (auto) 1.1 Absolute Monos (auto) 1.1 H Absolute Eos (auto) 0.3 Absolute Basos (auto) 0.0 Absolute Nucleated RBC 0.0 Nucleated RBC % 0.1 INR (Anticoag Therapy) 1.80 H Sodium 132 L Potassium 4.2 Chloride 99 L Carbon Dioxide 23 Anion Gap 10 BUN 7 Creatinine 0.98 Est GFR ( Amer) 93.8 Est GFR (Non-Af Amer) 77.5 BUN/Creatinine Ratio 7.1 L Glucose 109 H Lactic Acid Calcium 8.6 Magnesium 1.8 L Total Bilirubin 5.40 H Direct Bilirubin Indirect Bilirubin AST 30 ALT 22 Alkaline Phosphatase 159 H Ammonia Troponin I 0.01 C-Reactive Protein 14.54 H B-Natriuretic Peptide Total Protein 6.4 Albumin 2.3 L Globulin 4.1 H Albumin/Globulin Ratio 0.6 L Fluid Source Fluid Volume Fluid Color Fluid Appearance Fluid WBC Fluid RBC Fluid Tot Cell Count Fluid Neutrophils Fluid Lymphocytes Fluid Monocytes 12/20/19 12/20/19 12/20/19 17:37 17:37 20:51 WBC RBC Hgb Hct MCV MCH MCHC RDW Plt Count MPV Neut % (Auto) Lymph % (Auto) [place] % (Auto) Eos % (Auto) Baso % (Auto) Absolute Neuts (auto) Absolute Lymphs (auto) Absolute Monos (auto) Absolute Eos (auto) Absolute Basos (auto) Absolute Nucleated RBC Nucleated RBC % INR (Anticoag Therapy) Sodium Potassium Chloride Carbon Dioxide Anion Gap BUN Creatinine Est GFR ( Amer) Est GFR (Non-Af Amer) BUN/Creatinine Ratio Glucose Lactic Acid 5.1 H* Calcium Magnesium Total Bilirubin Direct Bilirubin Indirect Bilirubin AST ALT Alkaline Phosphatase Ammonia 56 H Troponin I C-Reactive Protein B-Natriuretic Peptide 48 Total Protein Albumin Globulin Albumin/Globulin Ratio Fluid Source Fluid Volume Fluid Color Fluid Appearance Fluid WBC Fluid RBC Fluid Tot Cell Count Fluid Neutrophils Fluid Lymphocytes Fluid Monocytes 12/20/19 12/21/19 12/21/19 20:51 04:44 04:44 WBC RBC Hgb Hct MCV MCH MCHC RDW Plt Count MPV Neut % (Auto) Lymph % (Auto) [place] % (Auto) Eos % (Auto) Baso % (Auto) Absolute Neuts (auto) Absolute Lymphs (auto) Absolute Monos (auto) Absolute Eos (auto) Absolute Basos (auto) Absolute Nucleated RBC Nucleated RBC % INR (Anticoag Therapy) Sodium 129 L Potassium 4.6 Chloride 99 L Carbon Dioxide 25 Anion Gap 5 BUN 9 Creatinine 1.19 H Est GFR ( Amer) 75.0 Est GFR (Non-Af Amer) 61.9 BUN/Creatinine Ratio 7.6 L Glucose 141 H Lactic Acid 5.1 H* 1.6 Calcium 8.3 L Magnesium Total Bilirubin 5.30 H Direct Bilirubin 2.20 H Indirect Bilirubin 3.1 H AST 35 ALT 20 Alkaline Phosphatase 155 H Ammonia Troponin I C-Reactive Protein B-Natriuretic Peptide Total Protein 5.9 L Albumin 2.1 L Globulin 3.8 Albumin/Globulin Ratio 0.6 L Fluid Source Fluid Volume Fluid Color Fluid Appearance Fluid WBC Fluid RBC Fluid Tot Cell Count Fluid Neutrophils Fluid Lymphocytes Fluid Monocytes 12/21/19 12/21/19 04:44 08:00 WBC 5.5 RBC 2.66 L Hgb 8.3 L Hct 26 L MCV 96 H MCH 31 MCHC 32 RDW 25 H Plt Count 130 L MPV 7.6 Neut % (Auto) 56.9 Lymph % (Auto) 20.7 [place] % (Auto) 16.2 Eos % (Auto) 5.8 Baso % (Auto) 0.4 Absolute Neuts (auto) 3.1 Absolute Lymphs (auto) 1.1 Absolute Monos (auto) 0.9 H Absolute Eos (auto) 0.3 Absolute Basos (auto) 0.0 Absolute Nucleated RBC 0.0 Nucleated RBC % 0.0 INR (Anticoag Therapy) Sodium Potassium Chloride Carbon Dioxide Anion Gap BUN Creatinine Est GFR ( Amer) Est GFR (Non-Af Amer) BUN/Creatinine Ratio Glucose Lactic Acid Calcium Magnesium Total Bilirubin Direct Bilirubin Indirect Bilirubin AST ALT Alkaline Phosphatase Ammonia Troponin I C-Reactive Protein B-Natriuretic Peptide Total Protein Albumin Globulin Albumin/Globulin Ratio Fluid Source Peritonial fluid Fluid Volume 1040 Fluid Color Yellow Fluid Appearance Cloudy Fluid WBC 165 Fluid RBC 486 Fluid Tot Cell Count 100 Fluid Neutrophils 1 Fluid Lymphocytes 87 Fluid Monocytes 12 Microbiology and Other Data: Microbiology 12/21/19 08:20 Gram Stain - Final Body Fluid - Peritoneal Assess/Plan/Problems-Billing Assessment: 64 yr old male with pmh of alcoholic cirrhosis, hepatic encephalopathy, subdural hematoma, htn, asthma, depression, seizure, conversion disorder, medication noncompliance; who presented to the ED with abd distention, weight gain, and abd pain - Patient Problems (1) Alcoholic cirrhosis of liver with ascites Current Visit: No Status: Acute Code(s): K70.31 - ALCOHOLIC CIRRHOSIS OF LIVER WITH ASCITES SNOMED Code(s): 608918331 Comment: US revealed normal flow in portal veins as well as a large amount of ascities. Abd tapped on 12/24/[address] Bishop with approximately 6L drained. No growth in cultures of ascities fluid. Lactulose regimen changed to 30ml TID and discontinued bedtime dose as patient is having large frequent loose stools. - Continue aldactone and lasix. - Continue midodrine (2) Hepatic encephalopathy Current Visit: Yes Status: Acute Code(s): K72.90 - HEPATIC FAILURE, UNSPECIFIED WITHOUT COMA SNOMED Code(s): 97279691 Comment: Alert and oriented today. -Continue Lactulose -Continue Rifaximin. (3) Hypertension Current Visit: Yes Status: Chronic Priority: Medium Code(s): I10 - ESSENTIAL (PRIMARY) HYPERTENSION SNOMED Code(s): 22601477 Comment: Well-controlled, soft at times -Will continue current medication regimen - Continue to monitor (4) Anemia Current Visit: No Status: Chronic Code(s): D64.9 - ANEMIA, UNSPECIFIED SNOMED Code(s): 494557921 Comment: Stable, near baseline, likely d/t hx ESTEPHANIA compounded significantly by alcoholism - stable (5) Seizures Current Visit: No Status: Chronic Priority: Medium Code(s): R56.9 - UNSPECIFIED CONVULSIONS SNOMED Code(s): 16161832 Comment: - Seizure Precautions - Continue Keppra (6) Thrombocytopenia Current Visit: No Status: Chronic Code(s): D69.6 - THROMBOCYTOPENIA, UNSPECIFIED SNOMED Code(s): 059745124 Comment: chronic condition, very likely in relation to cirrhotic liver disease, stable (7) Tachycardia Current Visit: Yes Status: Acute Code(s): R00.0 - TACHYCARDIA, UNSPECIFIED SNOMED Code(s): 3724215 Comment: Well controlled at this point. Has a month long hx elevated HR per reports. Likely in relation to significant ascites. - Continue propranolol TID. - Cont tele (8) DVT prophylaxis Current Visit: No Status: Acute Onset Date: 11/02/14 Code(s): QVE7025 - SNOMED Code(s): 455703042 Comment: - SCDs. (9) Full code status Current Visit: No Status: Acute Onset Date: 11/02/14 Code(s): Z78.9 - OTHER SPECIFIED HEALTH STATUS SNOMED Code(s): 831815484 Status and Disposition: Dispo: Inpatient admit Condition: Guarded. Attending: Elidia Kahn
[2019-12-26 16:51] LABS: Hematocrit 27 % (42-52); Hemoglobin 8.4 g/dL (14.0-18.0); Mean Corpuscular HGB Conc 31 g/dL (31-36); Mean Corpuscular Hemoglobin 31 pg (27-31); Mean Corpuscular Volume 99 fL (80-94); Mean Platelet Volume 7.8 fL (7.4-10.4); Platelet Count 126 10^3/uL (150-450); Red Blood Count 2.71 10^6 /uL (4.18-5.48); Red Cell Distribution Width 26 % (10-15); White Blood Count 5.6 10^3/uL (3.5-10.8)
[2019-12-26 17:32] LABS: ABS Eosinophils 0.4 10^3/ul (0-0.6); ABS Lymphocytes 0.9 10^3/ul (1.0-4.8); ABS Monocytes 0.9 10^3/ul (0-0.8); ABS Neutrophils 3.4 10^3/ul (1.5-7.7); Eosinophil % 6.8 %; Lymphocyte % 16.6 %; Nucleated Red Blood Cells % 0.1
[2019-12-26] MEDS: Gabapentin CAP(*) 300 MG PO SCH (20:06)
[2019-12-26] MEDS: traZODone TAB* 50 MG TAB PO SCH (20:06)
[2019-12-27] MEDS: HYDROmorphone TAB* 2 MG PO PRN (07:48)
[2019-12-27] MEDS: Fluticasone NASAL SPRAY 50MCG* 16 gm SPRAY BTL BOTH NARES SCH (08:16)
[2019-12-27] MEDS: DULoxetine DR CAP* 20 MG CAP.DR PO SCH (08:16)
[2019-12-27] MEDS: Spironolactone TAB* 25 MG PO SCH (08:18)
[2019-12-27] MEDS: Magnesium Oxide TAB* 400 MG PO SCH (08:18)
[2019-12-27] MEDS: Folic Acid TAB* 1 MG PO SCH (08:19)
[2019-12-27] MEDS: Pantoprazole TAB * 40 MG TAB PO SCH ×2 (08:19→20:12)
[2019-12-27] MEDS: Furosemide TAB* 40 MG PO SCH (08:19)
[2019-12-27] MEDS: Cyanocobalamin TAB* 500 MCG PO SCH (08:19)
[2019-12-27] MEDS: Lactobacillus Acidophilus* 1 TAB PO SCH (08:20)
[2019-12-27] MEDS: RiFAXimin* 550 MG TAB PO SCH ×2 (08:21→20:12)
[2019-12-27] MEDS: Ferrous Sulfate TAB* 325 MG PO SCH (08:22)
[2019-12-27] MEDS: levETIRAcetam TAB* 500 MG PO SCH ×2 (08:23→20:12)
--- NOTE | 2019-12-27 15:54 | PN ---
Subjective Date of Service: 12/27/19 Interval History: Laying in bed, NAD. States tired. Spoke about plans for discharge, pt states that he wants to try and get back on the transplant list after he is discharged and that he knows it will take at least 6 months of being sober to try and be re -accepted. He is also aware that due to his significant weakness noted per PT that we are suggesting JOHN and he is okay with this. States that his abdomen feels better even from yesterday, thinks it is "smaller ", less distended. Frequency of loose stools decreasing. Does report an episode of confusion last night about where he was but states he remembers the entire episode. C/o ache to bilateral knees, legs, and shoulders. States that the pain medication has been working for him, however spoke to him about trying a less potent medication to which he was agreeable. Currently denies any headache, lightheadedness, CP, SOB, N/V/D, abdominal pain, swelling. Family History: Unchanged from Admission Social History: Unchanged from Admission Past Medical History: Unchanged from Admission Objective Active Medications: Albuterol (Ventolin Hfa Inhaler*) 2 puff INH Q4H PRN PRN Reason: SHORTNESS OF BREATH Cyanocobalamin (Vitamin B12 Tab*) 500 mcg PO DAILY [facility] Last Admin: 12/27/19 08:19 Dose: 500 mcg Duloxetine HCl (Cymbalta Cap*) 40 mg PO DAILY [facility] Last Admin: 12/27/19 08:16 Dose: 40 mg Ferrous Sulfate (Ferrous Sulfate Tab*) 325 mg PO DAILY [facility] Last Admin: 12/27/19 08:22 Dose: 325 mg Fluticasone Propionate (Flonase Nasal [place] 50mcg*) 1 spray BOTH NARES DAILY [facility] Last Admin: 12/27/19 08:16 Dose: 1 spray Folic Acid (Folvite Tab*) 1 mg PO DAILY [facility] Last Admin: 12/27/19 08:19 Dose: 1 mg Furosemide (Lasix Tab*) 40 mg PO DAILY [facility] Last Admin: 12/27/19 08:19 Dose: 40 mg Gabapentin (Neurontin Cap(*)) 300 mg PO BEDTIME [facility] Last Admin: 12/26/19 20:06 Dose: 300 mg Lactobacillus Rhamnosus (Lactobacillus Acidophilus*) 1 tab PO DAILY [facility] Last Admin: 12/27/19 08:20 Dose: 1 tab Lactulose (Lactulose*) 30 ml PO 0800,1300,1700 [facility] Last Admin: 12/27/19 12:47 Dose: 30 ml Levetiracetam (Keppra Tab*) 500 mg PO BID [facility] Last Admin: 12/27/19 08:23 Dose: 500 mg Magnesium Oxide (Magox 400 Tab*) 400 mg PO DAILY [facility] Last Admin: 12/27/19 08:18 Dose: 400 mg Midodrine (Midodrine) 5 mg PO BID [facility]; Protocol Last Admin: 12/27/19 08:20 Dose: 5 mg Ondansetron HCl (Zofran Odt Tab*) 4 mg PO Q8H PRN PRN Reason: NAUSEA/VOMITING Pantoprazole Sodium (Protonix Tab*) 40 mg PO BID [facility] Last Admin: 12/27/19 08:19 Dose: 40 mg Propranolol HCl (Inderal 10 Mg Tab) 10 mg PO TID [facility] Last Admin: 12/27/19 14:52 Dose: 10 mg Rifaximin (Xifaxan*) 550 mg PO BID [facility] Last Admin: 12/27/19 08:21 Dose: 550 mg Spironolactone (Aldactone Tab*) 100 mg PO DAILY [facility] Last Admin: 12/27/19 08:18 Dose: 100 mg Tramadol HCl (Ultram*) 50 mg PO Q12H PRN PRN Reason: PAIN - MODERATE Trazodone HCl (Desyrel Tab*) 50 mg PO BEDTIME [facility] Last Admin: 12/26/19 20:06 Dose: 50 mg Vital Signs - 8 hr 12/27/19 12/27/19 12/27/19 07:48 08:00 10:15 Temperature Pulse Rate Respiratory 18 18 18 Rate Blood Pressure (mmHg) O2 Sat by Pulse Oximetry 12/27/19 12/27/19 12/27/19 11:25 12:15 14:54 Temperature 98.1 F Pulse Rate 75 Respiratory 20 16 16 Rate Blood Pressure 103/59 (mmHg) O2 Sat by Pulse 96 Oximetry 12/27/19 15:00 Temperature 98 F Pulse Rate 74 Respiratory 16 Rate Blood Pressure 119/58 (mmHg) O2 Sat by Pulse 98 Oximetry Oxygen Devices in Use Now: None Appearance: laying in bed, NAD Eyes: - - PERRL Ears/Nose/Mouth/Throat: Clear Oropharnyx Respiratory: Symmetrical Chest Expansion and Respiratory Effort, Clear to Auscultation Cardiovascular: RRR Abdominal: - - Normoactive BS throughout, abdomen large, round, SNT Extremities: No Edema Skin: - - dry and intact, access sites to abdomen covered with CDI dressings. Very mild jaundice throughout Neurological: Alert and Oriented x 3 Nutrition: Taking PO's - with fluid restriction and low sodium diet Result Diagrams: 12/26/19 16:39 12/26/19 11:12 Additional Lab and Data: Laboratory Results - last 24 hr 12/20/19 12/20/19 12/20/19 17:37 17:37 17:37 WBC 6.1 RBC 3.02 L Hgb 9.2 L Hct 29 L MCV 95 H MCH 30 MCHC 32 RDW 25 H Plt Count 162 MPV 7.1 L Neut % (Auto) 58.6 Lymph % (Auto) 17.3 [place] % (Auto) 18.8 Eos % (Auto) 4.5 Baso % (Auto) 0.8 Absolute Neuts (auto) 3.6 Absolute Lymphs (auto) 1.1 Absolute Monos (auto) 1.1 H Absolute Eos (auto) 0.3 Absolute Basos (auto) 0.0 Absolute Nucleated RBC 0.0 Nucleated RBC % 0.1 INR (Anticoag Therapy) 1.80 H Sodium 132 L Potassium 4.2 Chloride 99 L Carbon Dioxide 23 Anion Gap 10 BUN 7 Creatinine 0.98 Est GFR ( Amer) 93.8 Est GFR (Non-Af Amer) 77.5 BUN/Creatinine Ratio 7.1 L Glucose 109 H Lactic Acid Calcium 8.6 Magnesium 1.8 L Total Bilirubin 5.40 H Direct Bilirubin Indirect Bilirubin AST 30 ALT 22 Alkaline Phosphatase 159 H Ammonia Troponin I 0.01 C-Reactive Protein 14.54 H B-Natriuretic Peptide Total Protein 6.4 Albumin 2.3 L Globulin 4.1 H Albumin/Globulin Ratio 0.6 L Fluid Source Fluid Volume Fluid Color Fluid Appearance Fluid WBC Fluid RBC Fluid Tot Cell Count Fluid Neutrophils Fluid Lymphocytes Fluid Monocytes 12/20/19 12/20/19 12/20/19 17:37 17:37 20:51 WBC RBC Hgb Hct MCV MCH MCHC RDW Plt Count MPV Neut % (Auto) Lymph % (Auto) [place] % (Auto) Eos % (Auto) Baso % (Auto) Absolute Neuts (auto) Absolute Lymphs (auto) Absolute Monos (auto) Absolute Eos (auto) Absolute Basos (auto) Absolute Nucleated RBC Nucleated RBC % INR (Anticoag Therapy) Sodium Potassium Chloride Carbon Dioxide Anion Gap BUN Creatinine Est GFR ( Amer) Est GFR (Non-Af Amer) BUN/Creatinine Ratio Glucose Lactic Acid 5.1 H* Calcium Magnesium Total Bilirubin Direct Bilirubin Indirect Bilirubin AST ALT Alkaline Phosphatase Ammonia 56 H Troponin I C-Reactive Protein B-Natriuretic Peptide 48 Total Protein Albumin Globulin Albumin/Globulin Ratio Fluid Source Fluid Volume Fluid Color Fluid Appearance Fluid WBC Fluid RBC Fluid Tot Cell Count Fluid Neutrophils Fluid Lymphocytes Fluid Monocytes 12/20/19 12/21/19 12/21/19 20:51 04:44 04:44 WBC RBC Hgb Hct MCV MCH MCHC RDW Plt Count MPV Neut % (Auto) Lymph % (Auto) [place] % (Auto) Eos % (Auto) Baso % (Auto) Absolute Neuts (auto) Absolute Lymphs (auto) Absolute Monos (auto) Absolute Eos (auto) Absolute Basos (auto) Absolute Nucleated RBC Nucleated RBC % INR (Anticoag Therapy) Sodium 129 L Potassium 4.6 Chloride 99 L Carbon Dioxide 25 Anion Gap 5 BUN 9 Creatinine 1.19 H Est GFR ( Amer) 75.0 Est GFR (Non-Af Amer) 61.9 BUN/Creatinine Ratio 7.6 L Glucose 141 H Lactic Acid 5.1 H* 1.6 Calcium 8.3 L Magnesium Total Bilirubin 5.30 H Direct Bilirubin 2.20 H Indirect Bilirubin 3.1 H AST 35 ALT 20 Alkaline Phosphatase 155 H Ammonia Troponin I C-Reactive Protein B-Natriuretic Peptide Total Protein 5.9 L Albumin 2.1 L Globulin 3.8 Albumin/Globulin Ratio 0.6 L Fluid Source Fluid Volume Fluid Color Fluid Appearance Fluid WBC Fluid RBC Fluid Tot Cell Count Fluid Neutrophils Fluid Lymphocytes Fluid Monocytes 12/21/19 12/21/19 04:44 08:00 WBC 5.5 RBC 2.66 L Hgb 8.3 L Hct 26 L MCV 96 H MCH 31 MCHC 32 RDW 25 H Plt Count 130 L MPV 7.6 Neut % (Auto) 56.9 Lymph % (Auto) 20.7 [place] % (Auto) 16.2 Eos % (Auto) 5.8 Baso % (Auto) 0.4 Absolute Neuts (auto) 3.1 Absolute Lymphs (auto) 1.1 Absolute Monos (auto) 0.9 H Absolute Eos (auto) 0.3 Absolute Basos (auto) 0.0 Absolute Nucleated RBC 0.0 Nucleated RBC % 0.0 INR (Anticoag Therapy) Sodium Potassium Chloride Carbon Dioxide Anion Gap BUN Creatinine Est GFR ( Amer) Est GFR (Non-Af Amer) BUN/Creatinine Ratio Glucose Lactic Acid Calcium Magnesium Total Bilirubin Direct Bilirubin Indirect Bilirubin AST ALT Alkaline Phosphatase Ammonia Troponin I C-Reactive Protein B-Natriuretic Peptide Total Protein Albumin Globulin Albumin/Globulin Ratio Fluid Source Peritonial fluid Fluid Volume 1040 Fluid Color Yellow Fluid Appearance Cloudy Fluid WBC 165 Fluid RBC 486 Fluid Tot Cell Count 100 Fluid Neutrophils 1 Fluid Lymphocytes 87 Fluid Monocytes 12 Microbiology and Other Data: Microbiology 12/21/19 08:20 Gram Stain - Final Body Fluid - Peritoneal Assess/Plan/Problems-Billing Assessment: 64 yr old male with pmh of alcoholic cirrhosis, hepatic encephalopathy, subdural hematoma, htn, asthma, depression, seizure, conversion disorder, medication noncompliance; who presented to the ED with abd distention, weight gain, and abd pain - Patient Problems (1) Alcoholic cirrhosis of liver with ascites Current Visit: No Status: Acute Code(s): K70.31 - ALCOHOLIC CIRRHOSIS OF LIVER WITH ASCITES SNOMED Code(s): 191162703 Comment: US revealed normal flow in portal veins as well as a large amount of ascities. Abd tapped on 12/24/[address] Bishop with approximately 6L drained. No growth in cultures of ascities fluid. - Continue aldactone and lasix. - Continue midodrine - Fluid restriction - Low Na diet (2) Hepatic encephalopathy Current Visit: Yes Status: Acute Code(s): K72.90 - HEPATIC FAILURE, UNSPECIFIED WITHOUT COMA SNOMED Code(s): 53641031 Comment: Alert and oriented today. Did have episode of confusion last night, quick, remembers entire episode. Will not change lactulose dosing based on this. -Continue to monitor -Continue Lactulose -Continue Rifaximin. (3) Hypertension Current Visit: Yes Status: Chronic Priority: Medium Code(s): I10 - ESSENTIAL (PRIMARY) HYPERTENSION SNOMED Code(s): 41164647 Comment: Well-controlled, soft at times -Will continue current medication regimen - Continue to monitor (4) Anemia Current Visit: No Status: Chronic Code(s): D64.9 - ANEMIA, UNSPECIFIED SNOMED Code(s): 481717912 Comment: Stable, near baseline, likely d/t hx cirrhotic liver disease, ESTEPHANIA compounded significantly by alcoholism - stable (5) Seizures Current Visit: No Status: Chronic Priority: Medium Code(s): R56.9 - UNSPECIFIED CONVULSIONS SNOMED Code(s): 41130012 Comment: - Seizure Precautions - Continue Keppra (6) Thrombocytopenia Current Visit: No Status: Chronic Code(s): D69.6 - THROMBOCYTOPENIA, UNSPECIFIED SNOMED Code(s): 821841114 Comment: chronic condition, very likely in relation to cirrhotic liver disease, stable (7) Tachycardia Current Visit: Yes Status: Acute Code(s): R00.0 - TACHYCARDIA, UNSPECIFIED SNOMED Code(s): 3388037 Comment: Well controlled at this point. Has a month long hx elevated HR per reports. Likely in relation to significant ascites. - Continue propranolol TID. - Cont tele (8) Hyponatremia Current Visit: Yes Status: Acute Code(s): E87.1 - HYPO-OSMOLALITY AND HYPONATREMIA SNOMED Code(s): 33471622 Comment: Na 128. Very likely hypervolemic hyponatremia. Level has remained steady. - continue to monitor - No intervention necessary at this time (9) DVT prophylaxis Current Visit: No Status: Acute Onset Date: 11/02/14 Code(s): QSO1453 - SNOMED Code(s): 087170260 Comment: - SCDs. (10) Full code status Current Visit: No Status: Acute Onset Date: 11/02/14 Code(s): Z78.9 - OTHER SPECIFIED HEALTH STATUS SNOMED Code(s): 180360652 Status and Disposition: Dispo: Inpatient admit Condition: Guarded. Attending: Elidia Kahn
[2019-12-27] MEDS: traMADol TAB* 50 MG PO PRN (17:48)
[2019-12-27] MEDS: traZODone TAB* 50 MG TAB PO SCH (20:12)
[2019-12-27] MEDS: Gabapentin CAP(*) 300 MG PO SCH (20:12)
[2019-12-28] MEDS: DULoxetine DR CAP* 20 MG CAP.DR PO SCH (08:07)
[2019-12-28] MEDS: Spironolactone TAB* 25 MG PO SCH (08:07)
[2019-12-28] MEDS: Lactobacillus Acidophilus* 1 TAB PO SCH (08:07)
[2019-12-28] MEDS: Ferrous Sulfate TAB* 325 MG PO SCH (08:07)
[2019-12-28] MEDS: RiFAXimin* 550 MG TAB PO SCH ×2 (08:07→20:35)
[2019-12-28] MEDS: Magnesium Oxide TAB* 400 MG PO SCH (08:08)
[2019-12-28] MEDS: Pantoprazole TAB * 40 MG TAB PO SCH ×2 (08:08→20:35)
[2019-12-28] MEDS: Folic Acid TAB* 1 MG PO SCH (08:08)
[2019-12-28] MEDS: Fluticasone NASAL SPRAY 50MCG* 16 gm SPRAY BTL BOTH NARES SCH (08:08)
[2019-12-28] MEDS: levETIRAcetam TAB* 500 MG PO SCH ×2 (08:08→20:35)
[2019-12-28] MEDS: Furosemide TAB* 40 MG PO SCH (08:08)
[2019-12-28] MEDS: Cyanocobalamin TAB* 500 MCG PO SCH (08:09)
--- NOTE | 2019-12-28 12:02 | PN ---
Subjective Date of Service: 12/28/19 Interval History: Pt denies any concerns today. Awaiting JOHN placement. Denies any episodes of confusion or disorientation since the night before. States that he is still having achy joints all over but that the tramadol seems to be helping. States that his abdomen feels fine, no pain, and that he does not believe he has any increase in distention. Currently denies any WILSON, CP, SOB, abdominal discomfort, unusual numbness/ tingling or weakness. Family History: Unchanged from Admission Social History: Unchanged from Admission Past Medical History: Unchanged from Admission Objective Active Medications: Albuterol (Ventolin Hfa Inhaler*) 2 puff INH Q4H PRN PRN Reason: SHORTNESS OF BREATH Cyanocobalamin (Vitamin B12 Tab*) 500 mcg PO DAILY [facility] Last Admin: 12/28/19 08:09 Dose: 500 mcg Duloxetine HCl (Cymbalta Cap*) 40 mg PO DAILY [facility] Last Admin: 12/28/19 08:07 Dose: 40 mg Ferrous Sulfate (Ferrous Sulfate Tab*) 325 mg PO DAILY [facility] Last Admin: 12/28/19 08:07 Dose: 325 mg Fluticasone Propionate (Flonase Nasal [place] 50mcg*) 1 spray BOTH NARES DAILY [facility] Last Admin: 12/28/19 08:08 Dose: 1 spray Folic Acid (Folvite Tab*) 1 mg PO DAILY [facility] Last Admin: 12/28/19 08:08 Dose: 1 mg Furosemide (Lasix Tab*) 40 mg PO DAILY [facility] Last Admin: 12/28/19 08:08 Dose: 40 mg Gabapentin (Neurontin Cap(*)) 300 mg PO BEDTIME [facility] Last Admin: 12/27/19 20:12 Dose: 300 mg Lactobacillus Rhamnosus (Lactobacillus Acidophilus*) 1 tab PO DAILY [facility] Last Admin: 12/28/19 08:07 Dose: 1 tab Lactulose (Lactulose*) 30 ml PO 0800,1300,1700 [facility] Last Admin: 12/28/19 08:14 Dose: 30 ml Levetiracetam (Keppra Tab*) 500 mg PO BID [facility] Last Admin: 12/28/19 08:08 Dose: 500 mg Magnesium Oxide (Magox 400 Tab*) 400 mg PO DAILY [facility] Last Admin: 12/28/19 08:08 Dose: 400 mg Midodrine (Midodrine) 5 mg PO BID [facility]; Protocol Last Admin: 12/28/19 08:08 Dose: 5 mg Ondansetron HCl (Zofran Odt Tab*) 4 mg PO Q8H PRN PRN Reason: NAUSEA/VOMITING Pantoprazole Sodium (Protonix Tab*) 40 mg PO BID [facility] Last Admin: 12/28/19 08:08 Dose: 40 mg Propranolol HCl (Inderal 10 Mg Tab) 10 mg PO TID [facility] Last Admin: 12/28/19 08:07 Dose: 10 mg Rifaximin (Xifaxan*) 550 mg PO BID [facility] Last Admin: 12/28/19 08:07 Dose: 550 mg Spironolactone (Aldactone Tab*) 100 mg PO DAILY [facility] Last Admin: 12/28/19 08:07 Dose: 100 mg Tramadol HCl (Ultram*) 50 mg PO Q12H PRN PRN Reason: PAIN - MODERATE Last Admin: 12/27/19 17:48 Dose: 50 mg Trazodone HCl (Desyrel Tab*) 50 mg PO BEDTIME [facility] Last Admin: 12/27/19 20:12 Dose: 50 mg Vital Signs - 8 hr 12/28/19 12/28/19 07:19 09:20 Temperature 97.4 F Pulse Rate 69 Respiratory 18 18 Rate Blood Pressure 107/59 (mmHg) O2 Sat by Pulse 98 Oximetry Oxygen Devices in Use Now: None Appearance: laying in bed, NAD Eyes: - - PERRL Ears/Nose/Mouth/Throat: Clear Oropharnyx Respiratory: Symmetrical Chest Expansion and Respiratory Effort, Clear to Auscultation Cardiovascular: RRR, - - 2/6 systolic murmur heard bilaterally at upper sternal borders, no rubs or gallops Abdominal: - - Normoactive BS throughout, abdomen large, round, moderately distended, size equivalent to yesterday's assessment, no pain with deep palpation, difficulty assessing organomegally in r/t distention Extremities: No Edema Skin: - - Mild jaundice Neurological: Alert and Oriented x 3 Nutrition: Taking PO's - fluid restriction and low Na diet Result Diagrams: 12/26/19 16:39 12/26/19 11:12 Additional Lab and Data: Laboratory Results - last 24 hr 12/20/19 12/20/19 12/20/19 17:37 17:37 17:37 WBC 6.1 RBC 3.02 L Hgb 9.2 L Hct 29 L MCV 95 H MCH 30 MCHC 32 RDW 25 H Plt Count 162 MPV 7.1 L Neut % (Auto) 58.6 Lymph % (Auto) 17.3 [place] % (Auto) 18.8 Eos % (Auto) 4.5 Baso % (Auto) 0.8 Absolute Neuts (auto) 3.6 Absolute Lymphs (auto) 1.1 Absolute Monos (auto) 1.1 H Absolute Eos (auto) 0.3 Absolute Basos (auto) 0.0 Absolute Nucleated RBC 0.0 Nucleated RBC % 0.1 INR (Anticoag Therapy) 1.80 H Sodium 132 L Potassium 4.2 Chloride 99 L Carbon Dioxide 23 Anion Gap 10 BUN 7 Creatinine 0.98 Est GFR ( Amer) 93.8 Est GFR (Non-Af Amer) 77.5 BUN/Creatinine Ratio 7.1 L Glucose 109 H Lactic Acid Calcium 8.6 Magnesium 1.8 L Total Bilirubin 5.40 H Direct Bilirubin Indirect Bilirubin AST 30 ALT 22 Alkaline Phosphatase 159 H Ammonia Troponin I 0.01 C-Reactive Protein 14.54 H B-Natriuretic Peptide Total Protein 6.4 Albumin 2.3 L Globulin 4.1 H Albumin/Globulin Ratio 0.6 L Fluid Source Fluid Volume Fluid Color Fluid Appearance Fluid WBC Fluid RBC Fluid Tot Cell Count Fluid Neutrophils Fluid Lymphocytes Fluid Monocytes 12/20/19 12/20/19 12/20/19 17:37 17:37 20:51 WBC RBC Hgb Hct MCV MCH MCHC RDW Plt Count MPV Neut % (Auto) Lymph % (Auto) [place] % (Auto) Eos % (Auto) Baso % (Auto) Absolute Neuts (auto) Absolute Lymphs (auto) Absolute Monos (auto) Absolute Eos (auto) Absolute Basos (auto) Absolute Nucleated RBC Nucleated RBC % INR (Anticoag Therapy) Sodium Potassium Chloride Carbon Dioxide Anion Gap BUN Creatinine Est GFR ( Amer) Est GFR (Non-Af Amer) BUN/Creatinine Ratio Glucose Lactic Acid 5.1 H* Calcium Magnesium Total Bilirubin Direct Bilirubin Indirect Bilirubin AST ALT Alkaline Phosphatase Ammonia 56 H Troponin I C-Reactive Protein B-Natriuretic Peptide 48 Total Protein Albumin Globulin Albumin/Globulin Ratio Fluid Source Fluid Volume Fluid Color Fluid Appearance Fluid WBC Fluid RBC Fluid Tot Cell Count Fluid Neutrophils Fluid Lymphocytes Fluid Monocytes 12/20/19 12/21/19 12/21/19 20:51 04:44 04:44 WBC RBC Hgb Hct MCV MCH MCHC RDW Plt Count MPV Neut % (Auto) Lymph % (Auto) [place] % (Auto) Eos % (Auto) Baso % (Auto) Absolute Neuts (auto) Absolute Lymphs (auto) Absolute Monos (auto) Absolute Eos (auto) Absolute Basos (auto) Absolute Nucleated RBC Nucleated RBC % INR (Anticoag Therapy) Sodium 129 L Potassium 4.6 Chloride 99 L Carbon Dioxide 25 Anion Gap 5 BUN 9 Creatinine 1.19 H Est GFR ( Amer) 75.0 Est GFR (Non-Af Amer) 61.9 BUN/Creatinine Ratio 7.6 L Glucose 141 H Lactic Acid 5.1 H* 1.6 Calcium 8.3 L Magnesium Total Bilirubin 5.30 H Direct Bilirubin 2.20 H Indirect Bilirubin 3.1 H AST 35 ALT 20 Alkaline Phosphatase 155 H Ammonia Troponin I C-Reactive Protein B-Natriuretic Peptide Total Protein 5.9 L Albumin 2.1 L Globulin 3.8 Albumin/Globulin Ratio 0.6 L Fluid Source Fluid Volume Fluid Color Fluid Appearance Fluid WBC Fluid RBC Fluid Tot Cell Count Fluid Neutrophils Fluid Lymphocytes Fluid Monocytes 12/21/19 12/21/19 04:44 08:00 WBC 5.5 RBC 2.66 L Hgb 8.3 L Hct 26 L MCV 96 H MCH 31 MCHC 32 RDW 25 H Plt Count 130 L MPV 7.6 Neut % (Auto) 56.9 Lymph % (Auto) 20.7 [place] % (Auto) 16.2 Eos % (Auto) 5.8 Baso % (Auto) 0.4 Absolute Neuts (auto) 3.1 Absolute Lymphs (auto) 1.1 Absolute Monos (auto) 0.9 H Absolute Eos (auto) 0.3 Absolute Basos (auto) 0.0 Absolute Nucleated RBC 0.0 Nucleated RBC % 0.0 INR (Anticoag Therapy) Sodium Potassium Chloride Carbon Dioxide Anion Gap BUN Creatinine Est GFR ( Amer) Est GFR (Non-Af Amer) BUN/Creatinine Ratio Glucose Lactic Acid Calcium Magnesium Total Bilirubin Direct Bilirubin Indirect Bilirubin AST ALT Alkaline Phosphatase Ammonia Troponin I C-Reactive Protein B-Natriuretic Peptide Total Protein Albumin Globulin Albumin/Globulin Ratio Fluid Source Peritonial fluid Fluid Volume 1040 Fluid Color Yellow Fluid Appearance Cloudy Fluid WBC 165 Fluid RBC 486 Fluid Tot Cell Count 100 Fluid Neutrophils 1 Fluid Lymphocytes 87 Fluid Monocytes 12 Microbiology and Other Data: Microbiology 12/21/19 08:20 Gram Stain - Final Body Fluid - Peritoneal Assess/Plan/Problems-Billing Assessment: 64 yr old male with pmh of alcoholic cirrhosis, hepatic encephalopathy, subdural hematoma, htn, asthma, depression, seizure, conversion disorder, medication noncompliance; who presented to the ED with abd distention, weight gain, and abd pain - Patient Problems (1) Alcoholic cirrhosis of liver with ascites Current Visit: No Status: Acute Code(s): K70.31 - ALCOHOLIC CIRRHOSIS OF LIVER WITH ASCITES SNOMED Code(s): 200865916 Comment: US revealed normal flow in portal veins as well as a large amount of ascities. Abd tapped on 12/24/[address] Bishop with approximately 6L drained. No growth in cultures of ascities fluid. - Continue aldactone and lasix. - Continue midodrine - Fluid restriction - Low Na diet (2) Hepatic encephalopathy Current Visit: Yes Status: Acute Code(s): K72.90 - HEPATIC FAILURE, UNSPECIFIED WITHOUT COMA SNOMED Code(s): 61968291 Comment: Alert and oriented today. Denies anymore episodes of confusion/ disorientation. -Continue to monitor -Continue Lactulose -Continue Rifaximin. (3) Hypertension Current Visit: Yes Status: Chronic Priority: Medium Code(s): I10 - ESSENTIAL (PRIMARY) HYPERTENSION SNOMED Code(s): 65904422 Comment: Well-controlled, soft at times -Will continue current medication regimen - Continue to monitor (4) Anemia Current Visit: No Status: Chronic Code(s): D64.9 - ANEMIA, UNSPECIFIED SNOMED Code(s): 556014721 Comment: Stable, near baseline, likely d/t hx cirrhotic liver disease, ESTEPHANIA compounded significantly by alcoholism - stable (5) Seizures Current Visit: No Status: Chronic Priority: Medium Code(s): R56.9 - UNSPECIFIED CONVULSIONS SNOMED Code(s): 77939682 Comment: - Seizure Precautions - Continue Keppra (6) Thrombocytopenia Current Visit: No Status: Chronic Code(s): D69.6 - THROMBOCYTOPENIA, UNSPECIFIED SNOMED Code(s): 000822062 Comment: chronic condition, very likely in relation to cirrhotic liver disease, stable (7) Tachycardia Current Visit: Yes Status: Acute Code(s): R00.0 - TACHYCARDIA, UNSPECIFIED SNOMED Code(s): 7214421 Comment: Well controlled at this point. Has a month long hx elevated HR per reports. Likely in relation to significant ascites. - Continue propranolol TID. - Cont tele (8) Hyponatremia Current Visit: Yes Status: Acute Code(s): E87.1 - HYPO-OSMOLALITY AND HYPONATREMIA SNOMED Code(s): 28667322 Comment: Na 128. Very likely hypervolemic hyponatremia. Level has remained steady. - continue to monitor - No intervention necessary at this time (9) DVT prophylaxis Current Visit: No Status: Acute Onset Date: 11/02/14 Code(s): TPR8869 - SNOMED Code(s): 319588009 Comment: - SCDs. (10) Full code status Current Visit: No Status: Acute Onset Date: 11/02/14 Code(s): Z78.9 - OTHER SPECIFIED HEALTH STATUS SNOMED Code(s): 925948657 Status and Disposition: Dispo: Inpatient admit Condition: Stable Attending: Elidia Kahn
[2019-12-28] MEDS: Gabapentin CAP(*) 300 MG PO SCH (20:35)
[2019-12-28] MEDS: traZODone TAB* 50 MG TAB PO SCH (20:35)
[2019-12-29] MEDS: Spironolactone TAB* 25 MG PO SCH (08:17)
[2019-12-29] MEDS: levETIRAcetam TAB* 500 MG PO SCH ×2 (08:17→21:25)
[2019-12-29] MEDS: Cyanocobalamin TAB* 500 MCG PO SCH (08:17)
[2019-12-29] MEDS: Ferrous Sulfate TAB* 325 MG PO SCH (08:18)
[2019-12-29] MEDS: Pantoprazole TAB * 40 MG TAB PO SCH ×2 (08:18→21:25)
[2019-12-29] MEDS: RiFAXimin* 550 MG TAB PO SCH ×2 (08:18→21:25)
[2019-12-29] MEDS: Furosemide TAB* 40 MG PO SCH (08:18)
[2019-12-29] MEDS: Magnesium Oxide TAB* 400 MG PO SCH (08:18)
[2019-12-29] MEDS: Folic Acid TAB* 1 MG PO SCH (08:18)
[2019-12-29] MEDS: DULoxetine DR CAP* 20 MG CAP.DR PO SCH (08:18)
[2019-12-29] MEDS: Lactobacillus Acidophilus* 1 TAB PO SCH (08:18)
[2019-12-29] MEDS: traMADol TAB* 50 MG PO PRN (08:27)
[2019-12-29] MEDS: Fluticasone NASAL SPRAY 50MCG* 16 gm SPRAY BTL BOTH NARES SCH (10:07)
--- NOTE | 2019-12-29 12:15 | PN ---
Progress Note - Progress Note Date of Service: 12/29/19 Note: GI followup doing ok, no confusion, no increased abd girth, no abd pain VS: 97.3, 103/65, 67, 100% nad, alert no asterixis +bs, soft, nt, nd hgb 8.4, plts 126, inr 1.8, bili 3.5, cr 1.1, MELD 25 Cirrhosis encephalopathy---stable, continue with lactulose to 2-3 softs stools per day , xifaxan ascites----no reaccumulation yet, continue diuretics, aldactone/lasix, no added salt diet Rishabh Ferreira MD
--- NOTE | 2019-12-29 16:24 | PN ---
Subjective Date of Service: 12/29/19 Interval History: Pt states that he is not having any abdominal pain or discomfort, he believes that his abdomen is less swollen and softer than yesterday. Currently denies any headache, lightheadedness, CP, palpitations, SOB, N/V/D, dysuria, swelling, numbness/tingling. Family History: Unchanged from Admission Social History: Unchanged from Admission Past Medical History: Unchanged from Admission Objective Active Medications: Albuterol (Ventolin Hfa Inhaler*) 2 puff INH Q4H PRN PRN Reason: SHORTNESS OF BREATH Cyanocobalamin (Vitamin B12 Tab*) 500 mcg PO DAILY [facility] Last Admin: 12/29/19 08:17 Dose: 500 mcg Duloxetine HCl (Cymbalta Cap*) 40 mg PO DAILY [facility] Last Admin: 12/29/19 08:18 Dose: 40 mg Ferrous Sulfate (Ferrous Sulfate Tab*) 325 mg PO DAILY [facility] Last Admin: 12/29/19 08:18 Dose: 325 mg Fluticasone Propionate (Flonase Nasal [place] 50mcg*) 1 spray BOTH NARES DAILY [facility] Last Admin: 12/29/19 10:07 Dose: 1 spray Folic Acid (Folvite Tab*) 1 mg PO DAILY [facility] Last Admin: 12/29/19 08:18 Dose: 1 mg Furosemide (Lasix Tab*) 40 mg PO DAILY [facility] Last Admin: 12/29/19 08:18 Dose: 40 mg Gabapentin (Neurontin Cap(*)) 300 mg PO BEDTIME [facility] Last Admin: 12/28/19 20:35 Dose: 300 mg Lactobacillus Rhamnosus (Lactobacillus Acidophilus*) 1 tab PO DAILY [facility] Last Admin: 12/29/19 08:18 Dose: 1 tab Lactulose (Lactulose*) 30 ml PO 0800,1300,1700 [facility] Last Admin: 12/29/19 15:58 Dose: 30 ml Levetiracetam (Keppra Tab*) 500 mg PO BID [facility] Last Admin: 12/29/19 08:17 Dose: 500 mg Magnesium Oxide (Magox 400 Tab*) 400 mg PO DAILY [facility] Last Admin: 12/29/19 08:18 Dose: 400 mg Midodrine (Midodrine) 5 mg PO BID [facility]; Protocol Last Admin: 12/29/19 08:17 Dose: 5 mg Ondansetron HCl (Zofran Odt Tab*) 4 mg PO Q8H PRN PRN Reason: NAUSEA/VOMITING Pantoprazole Sodium (Protonix Tab*) 40 mg PO BID [facility] Last Admin: 12/29/19 08:18 Dose: 40 mg Propranolol HCl (Inderal 10 Mg Tab) 10 mg PO TID [facility] Last Admin: 12/29/19 13:43 Dose: 10 mg Rifaximin (Xifaxan*) 550 mg PO BID [facility] Last Admin: 12/29/19 08:18 Dose: 550 mg Spironolactone (Aldactone Tab*) 100 mg PO DAILY [facility] Last Admin: 12/29/19 08:17 Dose: 100 mg Tramadol HCl (Ultram*) 50 mg PO Q12H PRN PRN Reason: PAIN - MODERATE Last Admin: 12/29/19 08:27 Dose: 50 mg Trazodone HCl (Desyrel Tab*) 50 mg PO BEDTIME [facility] Last Admin: 12/28/19 20:35 Dose: 50 mg Vital Signs - 8 hr 12/29/19 12/29/19 12/29/19 08:27 09:59 11:15 Temperature 97.7 F Pulse Rate 72 Respiratory 18 20 20 Rate Blood Pressure 109/55 (mmHg) O2 Sat by Pulse 98 Oximetry 12/29/19 14:55 Temperature 98.9 F Pulse Rate 75 Respiratory 20 Rate Blood Pressure 110/48 (mmHg) O2 Sat by Pulse 99 Oximetry Oxygen Devices in Use Now: None Appearance: Laying in bed, NAD Eyes: - - PERRL Ears/Nose/Mouth/Throat: Clear Oropharnyx, Mucous Membranes Moist Respiratory: Symmetrical Chest Expansion and Respiratory Effort, Clear to Auscultation Cardiovascular: RRR Abdominal: - - Normoactive BS throughout, abdomen large, round, moderate distention, appears the same as yesterday. Non-tender with deep palpation, difficulty assessing organomegaly in relation to distention Extremities: No Edema Skin: - - Very mild jaundice, prior access sites to either side of abdomen are covered with small CDI dressings Neurological: Alert and Oriented x 3 Nutrition: Taking PO's Result Diagrams: 12/26/19 16:39 12/26/19 11:12 Additional Lab and Data: Laboratory Results - last 24 hr 12/20/19 12/20/19 12/20/19 17:37 17:37 17:37 WBC 6.1 RBC 3.02 L Hgb 9.2 L Hct 29 L MCV 95 H MCH 30 MCHC 32 RDW 25 H Plt Count 162 MPV 7.1 L Neut % (Auto) 58.6 Lymph % (Auto) 17.3 [place] % (Auto) 18.8 Eos % (Auto) 4.5 Baso % (Auto) 0.8 Absolute Neuts (auto) 3.6 Absolute Lymphs (auto) 1.1 Absolute Monos (auto) 1.1 H Absolute Eos (auto) 0.3 Absolute Basos (auto) 0.0 Absolute Nucleated RBC 0.0 Nucleated RBC % 0.1 INR (Anticoag Therapy) 1.80 H Sodium 132 L Potassium 4.2 Chloride 99 L Carbon Dioxide 23 Anion Gap 10 BUN 7 Creatinine 0.98 Est GFR ( Amer) 93.8 Est GFR (Non-Af Amer) 77.5 BUN/Creatinine Ratio 7.1 L Glucose 109 H Lactic Acid Calcium 8.6 Magnesium 1.8 L Total Bilirubin 5.40 H Direct Bilirubin Indirect Bilirubin AST 30 ALT 22 Alkaline Phosphatase 159 H Ammonia Troponin I 0.01 C-Reactive Protein 14.54 H B-Natriuretic Peptide Total Protein 6.4 Albumin 2.3 L Globulin 4.1 H Albumin/Globulin Ratio 0.6 L Fluid Source Fluid Volume Fluid Color Fluid Appearance Fluid WBC Fluid RBC Fluid Tot Cell Count Fluid Neutrophils Fluid Lymphocytes Fluid Monocytes 12/20/19 12/20/19 12/20/19 17:37 17:37 20:51 WBC RBC Hgb Hct MCV MCH MCHC RDW Plt Count MPV Neut % (Auto) Lymph % (Auto) [place] % (Auto) Eos % (Auto) Baso % (Auto) Absolute Neuts (auto) Absolute Lymphs (auto) Absolute Monos (auto) Absolute Eos (auto) Absolute Basos (auto) Absolute Nucleated RBC Nucleated RBC % INR (Anticoag Therapy) Sodium Potassium Chloride Carbon Dioxide Anion Gap BUN Creatinine Est GFR ( Amer) Est GFR (Non-Af Amer) BUN/Creatinine Ratio Glucose Lactic Acid 5.1 H* Calcium Magnesium Total Bilirubin Direct Bilirubin Indirect Bilirubin AST ALT Alkaline Phosphatase Ammonia 56 H Troponin I C-Reactive Protein B-Natriuretic Peptide 48 Total Protein Albumin Globulin Albumin/Globulin Ratio Fluid Source Fluid Volume Fluid Color Fluid Appearance Fluid WBC Fluid RBC Fluid Tot Cell Count Fluid Neutrophils Fluid Lymphocytes Fluid Monocytes 12/20/19 12/21/1920 20:51 04:44 04:44 WBC RBC Hgb Hct MCV MCH MCHC RDW Plt Count MPV Neut % (Auto) Lymph % (Auto) [place] % (Auto) Eos % (Auto) Baso % (Auto) Absolute Neuts (auto) Absolute Lymphs (auto) Absolute Monos (auto) Absolute Eos (auto) Absolute Basos (auto) Absolute Nucleated RBC Nucleated RBC % INR (Anticoag Therapy) Sodium 129 L Potassium 4.6 Chloride 99 L Carbon Dioxide 25 Anion Gap 5 BUN 9 Creatinine 1.19 H Est GFR ( Amer) 75.0 Est GFR (Non-Af Amer) 61.9 BUN/Creatinine Ratio 7.6 L Glucose 141 H Lactic Acid 5.1 H* 1.6 Calcium 8.3 L Magnesium Total Bilirubin 5.30 H Direct Bilirubin 2.20 H Indirect Bilirubin 3.1 H AST 35 ALT 20 Alkaline Phosphatase 155 H Ammonia Troponin I C-Reactive Protein B-Natriuretic Peptide Total Protein 5.9 L Albumin 2.1 L Globulin 3.8 Albumin/Globulin Ratio 0.6 L Fluid Source Fluid Volume Fluid Color Fluid Appearance Fluid WBC Fluid RBC Fluid Tot Cell Count Fluid Neutrophils Fluid Lymphocytes Fluid Monocytes 12/21/19 12/21/19 04:44 08:00 WBC 5.5 RBC 2.66 L Hgb 8.3 L Hct 26 L MCV 96 H MCH 31 MCHC 32 RDW 25 H Plt Count 130 L MPV 7.6 Neut % (Auto) 56.9 Lymph % (Auto) 20.7 [place] % (Auto) 16.2 Eos % (Auto) 5.8 Baso % (Auto) 0.4 Absolute Neuts (auto) 3.1 Absolute Lymphs (auto) 1.1 Absolute Monos (auto) 0.9 H Absolute Eos (auto) 0.3 Absolute Basos (auto) 0.0 Absolute Nucleated RBC 0.0 Nucleated RBC % 0.0 INR (Anticoag Therapy) Sodium Potassium Chloride Carbon Dioxide Anion Gap BUN Creatinine Est GFR ( Amer) Est GFR (Non-Af Amer) BUN/Creatinine Ratio Glucose Lactic Acid Calcium Magnesium Total Bilirubin Direct Bilirubin Indirect Bilirubin AST ALT Alkaline Phosphatase Ammonia Troponin I C-Reactive Protein B-Natriuretic Peptide Total Protein Albumin Globulin Albumin/Globulin Ratio Fluid Source Peritonial fluid Fluid Volume 1040 Fluid Color Yellow Fluid Appearance Cloudy Fluid WBC 165 Fluid RBC 486 Fluid Tot Cell Count 100 Fluid Neutrophils 1 Fluid Lymphocytes 87 Fluid Monocytes 12 Microbiology and Other Data: Microbiology 12/21/19 08:20 Gram Stain - Final Body Fluid - Peritoneal Assess/Plan/Problems-Billing Assessment: 64 yr old male with pmh of alcoholic cirrhosis, hepatic encephalopathy, subdural hematoma, htn, asthma, depression, seizure, conversion disorder, medication noncompliance; who presented to the ED with abd distention, weight gain, and abd pain - Patient Problems (1) Alcoholic cirrhosis of liver with ascites Current Visit: No Status: Acute Code(s): K70.31 - ALCOHOLIC CIRRHOSIS OF LIVER WITH ASCITES SNOMED Code(s): 285047819 Comment: US revealed normal flow in portal veins as well as a large amount of ascities. Abd tapped on 12/21/19 by with 5.7L removed, and 12/24/[address] Bishop with approximately 6L drained. No growth in cultures of ascities fluid. - Continue aldactone and lasix. - Continue midodrine - Fluid restriction - Low Na diet (2) Hepatic encephalopathy Current Visit: Yes Status: Acute Code(s): K72.90 - HEPATIC FAILURE, UNSPECIFIED WITHOUT COMA SNOMED Code(s): 90292557 Comment: Alert and oriented today. Denies anymore episodes of confusion/ disorientation. -Continue to monitor -Continue Lactulose -Continue Rifaximin. (3) Hypertension Current Visit: Yes Status: Chronic Priority: Medium Code(s): I10 - ESSENTIAL (PRIMARY) HYPERTENSION SNOMED Code(s): 79653197 Comment: Well-controlled, soft at times -Will continue current medication regimen - Continue to monitor (4) Anemia Current Visit: No Status: Chronic Code(s): D64.9 - ANEMIA, UNSPECIFIED SNOMED Code(s): 826828428 Comment: Stable, near baseline, likely d/t hx cirrhotic liver disease, ESTEPHANIA compounded significantly by alcoholism - stable (5) Seizures Current Visit: No Status: Chronic Priority: Medium Code(s): R56.9 - UNSPECIFIED CONVULSIONS SNOMED Code(s): 11118412 Comment: - Seizure Precautions - Continue Keppra (6) Thrombocytopenia Current Visit: No Status: Chronic Code(s): D69.6 - THROMBOCYTOPENIA, UNSPECIFIED SNOMED Code(s): 298743965 Comment: chronic condition, very likely in relation to cirrhotic liver disease, stable (7) Tachycardia Current Visit: Yes Status: Acute Code(s): R00.0 - TACHYCARDIA, UNSPECIFIED SNOMED Code(s): 1171697 Comment: Well controlled at this point. Has a month long hx elevated HR per reports. Likely in relation to significant ascites. - Continue propranolol TID. - Cont tele (8) Hyponatremia Current Visit: Yes Status: Acute Code(s): E87.1 - HYPO-OSMOLALITY AND HYPONATREMIA SNOMED Code(s): 62381249 Comment: Na 128. Very likely hypervolemic hyponatremia. Level has remained steady. - continue to monitor - No intervention necessary at this time (9) DVT prophylaxis Current Visit: No Status: Acute Onset Date: 11/02/14 Code(s): RPM9297 - SNOMED Code(s): 081677842 Comment: - SCDs. (10) Full code status Current Visit: No Status: Acute Onset Date: 11/02/14 Code(s): Z78.9 - OTHER SPECIFIED HEALTH STATUS SNOMED Code(s): 668092958 Status and Disposition: Dispo: Inpatient admit Condition: Stable Attending: Elidia Kahn
[2019-12-29] MEDS: Gabapentin CAP(*) 300 MG PO SCH (21:25)
[2019-12-29] MEDS: traZODone TAB* 50 MG TAB PO SCH (21:25)
[2019-12-30 08:10] VITALS: BP 110/54
[2019-12-30] MEDS: DULoxetine DR CAP* 20 MG CAP.DR PO SCH (09:35)
[2019-12-30] MEDS: Magnesium Oxide TAB* 400 MG PO SCH (09:35)
[2019-12-30] MEDS: Lactobacillus Acidophilus* 1 TAB PO SCH (09:35)
[2019-12-30] MEDS: Folic Acid TAB* 1 MG PO SCH (09:35)
[2019-12-30] MEDS: Spironolactone TAB* 25 MG PO SCH (09:36)
[2019-12-30] MEDS: Ferrous Sulfate TAB* 325 MG PO SCH (09:36)
[2019-12-30] MEDS: Cyanocobalamin TAB* 500 MCG PO SCH (09:37)
[2019-12-30] MEDS: Furosemide TAB* 40 MG PO SCH (09:37)
[2019-12-30] MEDS: levETIRAcetam TAB* 500 MG PO SCH (09:37)
[2019-12-30] MEDS: RiFAXimin* 550 MG TAB PO SCH (09:37)
[2019-12-30] MEDS: Pantoprazole TAB * 40 MG TAB PO SCH (09:37)
[2019-12-30] MEDS: Fluticasone NASAL SPRAY 50MCG* 16 gm SPRAY BTL BOTH NARES SCH (09:38)
--- NOTE | 2019-12-30 11:20 | DS ---
DATE OF ADMISSION: 12/20/2019. DATE OF DISCHARGE: 12/30/2019. ADMITTING PROVIDER: Dr. Donavon Douglas. PRIMARY CARE PHYSICIAN: Dr. Rosie Noriega. PHYSICIAN ON THE DAY OF DISCHARGE: Dr. Douglas. CONSULTING GI DOCTORS: Dr. Wiley and Dr. Ferreira. OUTPATIENT GI PROVIDER: Dr. Anyi Hoffman. CHIEF COMPLAINT: Abdominal distention, weight gain, progressive abdominal pain , PRINCIPAL DIAGNOSIS: Decompensated cirrhosis with large volume ascites, status post two diagnostic/therapeutic paracenteses; anemia; thrombocytopenia; hyponatremia; acute kidney injury. HISTORY OF PRESENT ILLNESS AND HOSPITAL COURSE: Jarad Mata is a 64-year-old male with a past medical history of alcoholic cirrhosis, hepatic encephalopathy , hypertension, asthma, depression, seizure, stroke, umbilical hernia, conversion disorder who has been intermittently drinking alcohol prior to admission. Please see history and physical by Dr. Douglas for full details. Briefly, he complained of worsening abdominal pain, weight gain, and abdominal distention. He admitted to drinking (corroborated by his sister) alcohol - about a six pack daily for a few months, but he stated that his last drink was approximately two weeks prior to admission. Initial work-up in the emergency room included a lactic acid of 5.1, INR of 1.8, T. bili of 5.4, creatinine 0.98 , sodium 132. CT abdomen and pelvis noncontrast showed a large volume of ascites and a worsening cirrhotic appearance of the liver. A diagnostic and therapeutic paracentesis was performed early in the morning of hospital day #2. 5.7 liters were removed (and given 50gm albumin infusion) and WBC was 165 with 1 percent neutrophils. Cultures were negative. Course was complicated by an increase in his creatinine on hospital day #5 to a peak of 1.7. It had returned to 1.1 on hospital day #9. He was continued on Lasix, Midodrine, Spironolactone. He was put back on fluid restriction which he had not been compliant with at home. He had an additional therapeutic paracentesis with Interventional Radiology, Dr. Bishop, on December 23 where another 6 liters were removed. He was afebrile throughout and was never on antibiotics. His lactic acid resolved by the morning of hospital day #2, He was restarted on Xifaxan which he has not been able to afford as an outpatient. He worked with physical therapy and was thought not safe for home going. He is being discharged to [facility]. He was continued on his Lactulose. His ammonia level initially was 56, peaked at 96 on hospital day #5. He was started on Propranolol. His Duloxetine dose was reduced. His BuSpar was stopped given his hepatic failure. His inital MELD score was 22. The last labs were drawn on December 25 with a creatinine of 1.1, hemoglobin of 8.4. His INR on admission was 1.80. DISCHARGE MEDICATIONS: 1. Albuterol two puffs inhaled q.4 hours prn. 2. Vitamin B12 500 mcg p.o. daily. 3. Flonase nasal spray both nares daily. 4. Folic acid 1 mg p.o. daily. 5. Gabapentin 300 mg p.o. at bedtime. 6. Lactulose 30 ml t.i.d. 7. Keppra 500 mg p.o. b.i.d. 8. Magnesium Oxide 400 mg p.o. daily. 9. Midodrine 5 mg p.o. b.i.d. 10. Omeprazole 20 mg p.o. b.i.d. 11. Zofran 4 mg p.o. q.8 hours. 12. Rifaximin 550 mg p.o. b.i.d. (resume, he had not been taking this due to cost but it had been previously ordered). 13. Spironolactone 100 mg p.o. daily. 14. Trazodone 50 mg p.o. at bedtime. 15. Benadryl Itch 2% gel prn. 16. Duloxetine 40 mg p.o. daily, down from 60 mg p.o. daily. 17. EpiPen prn. 18. Ferrous Sulfate 325 mg p.o. daily (new). 19. Lasix 40 mg p.o. daily. 20. Lidocaine patch 5% prn. 21. Propranolol 10 mg p.o. t.i.d. (new). 22. Nasacort both nares daily. DISPOSITION: [facility]. CONDITION ON DISCHARGE: Improved, though guarded if not compliant with medications or if he resumes drinking especially. FOLLOW-UP: Please follow-up with Dr. Noriega and his transplant parking assistant. Will likely be following up with Dr. Balderas at [facility]. Should follow-up within seven days of discharge from the residential. Recommend CMP within five days of discharge, along with an INR and a CBC. TIME SPENT: Forty minutes. [id number]/[facility] #: [id number] MARILUZ
== END 2019-12-30 10:55 | DRG 433 ==
LOC: ED 14:26 → MEDTELE 20:31 → OBSVTOIN 12-21 09:00 → INTOOBSV 12-22 09:00
PROVIDERS: ADMIT Internal Medicine; ATTEND Internal Medicine
PROC: 0W9G3ZX Drainage of Peritoneal Cavity, Percutaneous Approach, Diagnostic (ICD-10-PCS; principal; 2019-12-21)
PROC: 0W9G3ZZ Drainage of Peritoneal Cavity, Percutaneous Approach (ICD-10-PCS; 2019-12-24)
DX: K70.31 Alcoholic cirrhosis of liver with ascites (principal); E87.1 Hypo-osmolality and hyponatremia; N17.9 Acute kidney failure, unspecified; J45.909 Unspecified asthma, uncomplicated; E32.9 Disease of thymus, unspecified; F44.9 Dissociative and conversion disorder, unspecified; R27.8 Other lack of coordination; R00.0 Tachycardia, unspecified; R14.0 Abdominal distension (gaseous); I10 Essential (primary) hypertension; K70.40 Alcoholic hepatic failure without coma; D69.6 Thrombocytopenia, unspecified; D64.9 Anemia, unspecified; G40.909 Epilepsy, unspecified, not intractable, without status epilepticus; F17.210 Nicotine dependence, cigarettes, uncomplicated; K42.9 Umbilical hernia without obstruction or gangrene; Z91.14 Patient's other noncompliance with medication regimen; Z86.73 Personal history of transient ischemic attack (TIA), and cerebral infarction without residual deficits; Z79.51 Long term (current) use of inhaled steroids; Z79.899 Other long term (current) drug therapy; Z88.8 Allergy status to other drugs, medicaments and biological substances; Z91.030 Bee allergy status; Z82.3 Family history of stroke; Z83.49 Family history of other endocrine, nutritional and metabolic diseases
CPT/HCPCS: 36415; 49083; 71046; 74176; 80048; 80053; 80076; 82042; 82140; 82272; 82728; 83540; 83550; 83605; 83735; 83880; 84157; 84484; 85025; 85610; 86140; 87040; 87205; 89051; 93005; 93975; 99285; A9270-GY; J3475; P9047